=== PATIENT | male | born 1935 | race Caucasian/White ===

== ENCOUNTER 2020-09-08 07:44 | Outpatient (REF) | payer MEDICARE, OTHER, SELFPAY ==
[2020-09-08 08:53] LABS: MANUAL DIFF FLAG NO
[2020-09-08 09:02] LABS: Basophils Absolute Auto 0.1 X10*3/uL (0.0-0.2); Basophils Percent Auto 1.1 % (0-2); Eosinophils Absolute Auto 0.2 X10*3/uL (0.0-0.4); Eosinophils Percent Auto 3.7 % (0-4); Hematocrit 35.9 % (42-52); Hemoglobin 11.8 g/dl (14.0-18.0); Imm Gran Abs Auto 0.01 X10*3/uL (0.00-0.03); Imm Gran Pct Auto 0.2 % (0.0-0.4); Lymphocytes Absolute Auto 1.8 X10*3/uL (1.2-4.9); Lymphocytes Percent Auto 33.4 % (20-40); Mean Corpuscular HGB Conc 32.9 g/dl (31.0-36.0); Mean Corpuscular Hemoglobin 30.6 pg (27.0-33.0); Monocytes Percent Auto 17.6 % (2-11); NRBC Pct Auto 0.4 /100WBC (0.0-0.2); Neutrophils Absolute Auto 2.4 X10*3/uL (2.0-8.3); Platelet Count 205 X10*3/uL (160-400); Red Blood Count 3.86 X10*6/uL (4.60-5.80); Red Cell Distribution Width 16.8 % (11.0-16.0); White Blood Count 5.5 X10*3/uL (4.8-10.8)
[2020-09-08 09:23] LABS: Alanine Aminotransferase 15 U/L (0-40); Anion Gap 11 (12-20); Blood Urea Nitrogen 22 mg/dL (9-16); Carbon Dioxide 29 mmol/L (22-29); Chloride 103 mmol/L (96-108); Cholesterol 141 mg/dL; Estimated Glomerular Filt Rate > 60; HDL Cholesterol 55 mg/dL; LDL Cholesterol Calculated 68 mg/dl; Potassium 4.1 mmol/l (3.3-5.1); Sodium 139 mmol/L (135-145); Triglycerides 94 mg/dL
== END 2020-09-08 07:45 | disposition home or self-care (01) ==
LOC: HO.LAB 07:44
PROVIDERS: PCP Family Medicine; Visit Provider Family Medicine
DX: I10 Essential (primary) hypertension (principal); E78.00 Pure hypercholesterolemia, unspecified; D64.9 Anemia, unspecified; Z79.899 Other long term (current) drug therapy
CPT/HCPCS: 36415; 80051; 80061; 82550; 82565; 84460; 84520; 85025

== ENCOUNTER 2020-09-27 12:38 | Outpatient (REF) | payer MEDICARE, OTHER, SELFPAY ==
--- NOTE | 2020-09-27 12:53 | XR_ITS ---
EXAMINATION: XR HIP, LEFT CLINICAL INFORMATION: Left hip pain. Mass. COMPARISON: None TECHNIQUE: Two views of the left hip. FINDINGS: Bones and soft tissues are normal. No fracture. Alignment is anatomic. Hip joint space is maintained. XR/XR hip LT min 2V IMPRESSION: Unremarkable left hip exam.
== END 2020-09-27 12:39 | disposition home or self-care (01) ==
LOC: HO.XRAY 12:38
PROVIDERS: PCP Family Medicine; Visit Provider Family Medicine
DX: M25.552 Pain in left hip (principal); R22.42 Localized swelling, mass and lump, left lower limb
CPT/HCPCS: 73502

== ENCOUNTER 2020-12-04 11:59 | Outpatient (REF) | payer MEDICARE, OTHER, SELFPAY ==
[2020-12-04 12:35] LABS: COVID-19 Test Negative (Negative)
== END 2020-12-04 12:00 | disposition home or self-care (01) ==
LOC: HO.LAB 11:59
PROVIDERS: Visit Provider Internal Medicine
DX: Z20.828 Contact with and (suspected) exposure to other viral communicable diseases (principal)
CPT/HCPCS: 36415; 87635; C9803

== ENCOUNTER 2021-02-26 07:48 | Outpatient (REF) | payer MEDICARE, OTHER, SELFPAY ==
--- NOTE | 2021-02-27 08:55 | MHC.AU.P13 ---
Adult Audiological Evaluation Date of Visit: 02/26/21 Senior Examiner Used: Not Applicable Reason for Appointment: Audiologic evaluation due to gradual change in hearing ability and tinnitus Does patient feel they have a hearing loss?: Yes If Yes, Which Ear?: Right Ear When Was Hearing Difficulty First Noticed?: fall Has hearing been tested previously?: No Hearing Handicap Inventory: HHIE SCORE: 8 Based on HHIE score, patient has: No perceived hearing handicap Ear History: Ear Infections in Childhood: Outer ear infections from swimming and water remaining in ears Bothersome Tinnitus/Ringing/Noises in Ears: Both Ears Ear used on the phone: Left Ear History of occupational noise exposure?: No: History of recreational shooting and uses H[employer] History: Branch: [employer] Medical History: Medical History: Blood Disorders, Skin Cancer, Heart Problems, High Blood Pressure, Mumps, Scarlet Fever History of skin cancer treated with removal of lesions, 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 Left Ear Results: Not performed at today's visit. Hearing Evaluation: Transducer(s) Used: Insert Earphones Bone Conduction Method: Conventional Audiometry Stimuli Used: Pure Tones Right Ear: Description of Hearing: Mild to moderate sensorineural hearing loss. Left Ear: Description of Hearing: Mild to moderately-severe sensorineural hearing loss with notched configuration at 3000 and 4000 Hz. Speech Recognition Threshold (SRT): Method Used: Monitored Live Voice Stimuli Used: Spondee Words Right Ear: 35 dB HL Left Ear: 40 dB HL Word Discrimination: Method: Recorded Lists Word Lists Used: NU-6 Right Ear: 92% at 75 dB HL Left Ear: 96% at 85 dB HL Most Comfortable Level (MCL): Right Ear: 75 dB HL Left Ear: 85 dB HL QuickSIN: Unaided Binaural Quick SIN Test: 6 dB SNR Loss suggesting Keegan experiences a mild degree of difficulty understanding speech with increasing levels of background noise in this controlled test environment. Recommendations: Audiological re-evaluation in one year. Hearing protection should be used when around loud noise. - The notched configuration of the hearing loss in the left ear may relate to noise exposure. However, given the asymmetry of the hearing loss, medical consultation with an Machine I Engraver is advised. - Discussed with Keegan he is potentially a candidate for hearing aids if the hearing loss is interfering with communication ability. If interested in pursuing amplification from this office he may schedule a Hearing Aid Evaluation appointment. Diagnosis: Primary Diagnosis: H90.3 Bilateral Sensorineural Hearing Loss Secondary Diagnosis: H93.13 Tinnitus, Bilateral Services Performed: Comprehensive Audiological Evaluation (CPT 17077) Tympanometry (CPT 16522) Signature: Provider: Juancarlos Mahoney, CCC-A
== END 2021-02-26 07:49 | disposition home or self-care (01) ==
LOC: HO.SH 07:48
PROVIDERS: Visit Provider Family Medicine
DX: H91.93 Unspecified hearing loss, bilateral (principal)
CPT/HCPCS: 92557; 92567

== ENCOUNTER 2021-04-09 12:09 | Outpatient (REF) | payer MEDICARE, OTHER, SELFPAY ==
[2021-04-09 13:54] LABS: Alanine Aminotransferase 21 U/L (0-40); Anion Gap 13 (12-20); Aspartate Amino Transferase 32 U/L (5-37); Blood Urea Nitrogen 17 mg/dL (9-16); Carbon Dioxide 28 mmol/L (22-29); Chloride 102 mmol/L (96-108); Estimated Glomerular Filt Rate > 60; Potassium 4.1 mmol/L (3.3-5.1); Sodium 139 mmol/L (135-145)
== END 2021-04-09 12:10 | disposition home or self-care (01) ==
LOC: HO.LAB 12:09
PROVIDERS: PCP Family Medicine; Visit Provider Family Medicine
DX: I10 Essential (primary) hypertension (principal); E78.00 Pure hypercholesterolemia, unspecified; Z79.899 Other long term (current) drug therapy
CPT/HCPCS: 36415; 80051; 82550; 82565; 84450; 84460; 84520

== ENCOUNTER 2021-04-17 15:47 | Observation (INO) | payer MEDICARE, OTHER, SELFPAY ==
[2021-04-17] VITALS (7 sets, daily range): BP systolic 97–152; BP diastolic 59–70; PULSE 64–75; RESP 16–19; TEMP 36.4–36.9; O2SAT 95–99; BMI 28.2
--- NOTE | ~2021-04-17 | XR_ITS ---
EXAMINATION: PORTABLE CHEST 1 VIEW CLINICAL INFORMATION: Cellulitis . COMPARISON: 04/19/2020. TECHNIQUE: Portable frontal view of the chest was obtained. FINDINGS: The lungs are well expanded. Mild central vascular prominence remains. No focal infiltrate, effusion, overt edema, or pneumothorax. Cardiac and mediastinal silhouettes are within normal limits for size. Patient status post sternotomy. No acute bony abnormality seen. XR/XR chest 1V IMPRESSION: Chronic appearing changes similar to the 04/19/2020 study
[2021-04-17 17:02] LABS: MANUAL DIFF FLAG NO
[2021-04-17 17:06] LABS: Basophils Percent Auto 0.8 % (0-2); Eosinophils Absolute Auto 0.2 X10*3/uL (0.0-0.4); Eosinophils Percent Auto 4.3 % (0-4); Hematocrit 35.1 % (42-52); Hemoglobin 11.8 g/dl (14.0-18.0); Imm Gran Abs Auto 0.01 X10*3/uL (0.00-0.03); Imm Gran Pct Auto 0.2 % (0.0-0.4); Lymphocytes Absolute Auto 1.7 X10*3/uL (1.2-4.9); Lymphocytes Percent Auto 31.1 % (20-40); Mean Corpuscular HGB Conc 33.6 g/dl (31.0-36.0); Mean Corpuscular Hemoglobin 31.2 pg (27.0-33.0); Mean Corpuscular Volume 92.9 fL (80-98); Mean Platelet Volume 11.7 fL (9.4-12.4); Monocytes Absolute Auto 1.1 X10*3/uL (0.1-1.2); Neutrophils Absolute Auto 2.3 X10*3/uL (2.0-8.3); Neutrophils Percent Auto 43.6 % (45-73); Platelet Count 184 X10*3/uL (160-400); Red Blood Count 3.78 X10*6/uL (4.60-5.80); Red Cell Distribution Width 17.7 % (11.0-16.0); White Blood Count 5.3 X10*3/uL (4.8-10.8)
--- NOTE | 2021-04-17 17:11 | ED.GENADULT ---
HPI - General Adult General Chief complaint: Recheck/Abnormal Lab/Rx Stated complaint: abnormal labs Time Seen by Provider: 04/17/21 17:01 Source: patient Mode of arrival: ambulatory Limitations: no limitations History of Present Illness HPI narrative: This is a 85-year-old male came in for evaluation of possible left arm cellulitis and hypotension at the PCP office. Patient with history of atrial fibrillation/mechanical aortic valve patient on Coumadin, 2 weeks ago patient hurt his left arm causing superficial skin tear, seen by his PCP/[facility] patient was started on antibiotic (Keflex and Bactrim) started 4 days ago patient still finishing the course of antibiotic, went today for rechecking of his left arm wound which subjectively was reported as improved (the swelling and the redness) by the patient, patient found at the PCP office hypotensive and patient was complaining of generalized weakness. Patient was instructed to come to the emergency room for further evaluation. Related Data Home Medications Medication Instructions Recorded Confirmed acebutolol 200 mg PO DAILY 04/17/21 04/17/21 doxazosin 1 tab PO DAILY 04/17/21 04/17/21 finasteride 1 tab PO DAILY 04/17/21 04/17/21 furosemide 1 tab PO QAM 04/17/21 04/17/21 lisinopril 20 mg PO DAILY 04/17/21 04/17/21 lorazepam 1 tab PO TID PRN 04/17/21 04/17/21 rosuvastatin 1 tab PO DAILY 04/17/21 04/17/21 sulfamethoxazole-trimethoprim 1 tab PO BID 04/17/21 04/17/21 warfarin 1 tab PO DAILY 04/17/21 04/17/21 warfarin 1 tab PO DAILY 04/17/21 04/17/21 Allergies Allergy/AdvReac Type Severity Reaction Status Date / Time adhesive [ADHESIVE] Allergy Intermediate RASH, Verified 04/17/21 20:06 BLISTERS atenolol [Atenolol] Allergy Mild RASH Verified 04/17/21 20:06 sotalol [Sotalol] Allergy Mild RASH Verified 04/17/21 20:06 atorvastatin [From Lipitor] AdvReac Mild SEVERE Verified 04/17/21 20:06 ACHES AND PAINS Review of Systems Review of Systems: All other systems are reviewed and are negative Constitutional: Reports as per HPI and Reports no additional constitutional complaints Eyes: Reports as per HPI and Reports no additional eye complaints Reports system reviewed and no additional complaints, except as documented Cardiovascular: Reports as per HPI and Reports no additional cardiovascular complaints Respiratory: Reports as per HPI and Reports no additional respiratory complaints Gastrointestinal: Reports as per HPI and Reports no additional gastrointestinal complaints Genitourinary: Reports no additional female genitourinary complaints Musculoskeletal: Reports no additional musculoskeletal complaints Skin/Breast: Reports system reviewed and no additional complaints, except as docu Psychiatric: Reports no additional psychiatric complaints Endocrine: Reports no additional endocrine complaints Hematologic/Lymphatic: Reports no additional hematologic/lymphatic complaints Allergic/Immunologic: Reports no additional allergic/immunologic complaints Reports system reviewed and no additional complaints, except as documented and Reports Abnormal speech present FOR[facility]LY [facility], [facility] Past Medical History Medical History HTN (hypertension) Surgical History Aortic valve replaced History of cholecystectomy Social History Social History Alcohol intake: current Alcohol intake frequency: 0-2 drinks per day Smoking Status: Former smoker Smoked in Last 30 Days: No Use of substances other than those prescribed or required for medical reasons: No Advance Directives: No Advance Directives Information Provided: Yes Physical Exam Vital Signs: Vital Signs: Last Vital Signs Temp 98.0 F 04/17/21 20:17 Pulse 67 04/17/21 20:17 Resp 16 04/17/21 20:17 BP 139/60 04/17/21 20:17 Pulse Ox 98 04/17/21 20:17 Body Mass Index 28.2 Vital signs have been reviewed as appeared to be correct. Blood pressure normal. Heart rate normal. Respiration rate normal. Temperature normal. Oxygen saturation normal. Appearance: Alert. Oriented X3. No acute distress. Head: Normal external exam. Normocephalic. Atraumatic. No Rodrigues signs noted. No raccoon eyes noted Eyes: PERRLA. EOMI. Conjunctiva and sclera normal. Eyelids normal. ENT: TM's Normal. Pharynx normal. Uvula midline. Dry mucous membranes. No trismus noted. No drooling noted. No muffled voice noted. Neck: Normal inspection. Neck supple. FROM. No adenopathy. Thyroid Normal. No meningeal signs. No neck mass noted. CVS: Normal heart rate and rhythm. Mechanical valve click is intact. No murmurs noted. Pulses normal throughout. Respiratory: No respiratory distress. Painless inspiration. Breath sounds normal. No wheezes/rales/rhonchi noted. Chest nontender. No accessory muscle usage noted or decreased air movement noted. Abdomen: Soft and nontender. Bowel sounds normal in all 4 quadrants. No distention noted. No organomegaly noted. No visible injury noted. Back: No CVA tenderness. Full range of motion noted. Skin: Skin warm and dry. Normal skin color. Normal skin turgor. No rashes/lesions/lacerations noted. Extremities: Mild left arm cellulitis, no swelling. Neuro: Oriented X 3. No motor deficit. No sensory deficit. Reflexes normal. Course Course Course Narrative: Assessment and plan. 85-year-old male who has been treated for left arm cellulitis after skin tear, patient was received Bactrim which appears to be improving his cellulitis issue, patient has been feeling generalized weakness seen by his PCP today found to be hypotensive in the office, was sent to the ED for further evaluation. Labs/physical exam are more consistent with dehydration. Blood pressure has been normalizing with IV fluids. No evidence of infection causing the hypotension. Will admit the patient for IV hydration and repeat labs after hydration. Medical Decision Making Lab Data Lab results reviewed: Yes I reviewed the patient's lab results. Result diagrams: 04/17/21 16:37 04/17/21 18:07 Labs: Lab Results 04/17/21 04/17/21 04/17/21 Range/Units 16:36 16:36 16:37 WBC 5.3 (4.8-10.8) X10*3/uL RBC 3.78 L (4.60-5.80) X10*6/uL Hgb 11.8 L (14.0-18.0) g/dl Hct 35.1 L (42-52) % MCV 92.9 (80-98) fL MCH 31.2 (27.0-33.0) pg MCHC 33.6 (31.0-36.0) g/dl RDW 17.7 H (11.0-16.0) % Plt Count 184 (160-400) X10*3/uL MPV 11.7 (9.4-12.4) fL Immature Gran % (Auto) 0.2 (0.0-0.4) % Neut % (Auto) 43.6 L (45-73) % Lymph % (Auto) 31.1 (20-40) % [place] % (Auto) 20.0 H (2-11) % Eos % (Auto) 4.3 H (0-4) % Baso % (Auto) 0.8 (0-2) % Lymph # (Auto) 1.7 (1.2-4.9) X10*3/uL [place] # (Auto) 1.1 (0.1-1.2) X10*3/uL Eos # (Auto) 0.2 (0.0-0.4) X10*3/uL Baso # (Auto) 0.0 (0.0-0.2) X10*3/uL Abs Immat Gran (auto) 0.01 (0.00-0.03) X10*3/uL Absolute Neuts (auto) 2.3 (2.0-8.3) X10*3/uL Absolute Nucleated RBC 0.000 (0.0-0.012) X10*3/uL Nucleated RBC % (auto) 0.0 (0.0-0.2) /100WBC PT (10.8-13.0) SEC INR (0.9-1.1) APTT (24.1-38.0) SEC Hold Blue Top Sodium (135-145) mmol/L Potassium (3.3-5.1) mmol/L Chloride (96-108) mmol/L Carbon Dioxide (22-29) mmol/L Anion Gap (12-20) BUN (9-16) mg/dL Creatinine (0.5-1.4) mg/dL Estim Creat Clear Calc Estimated GFR Random Glucose (60-115) mg/dL Lactic Acid 1.1 (0.5-2.0) mmol/L Calcium (8.4-10.2) mg/dL Total Bilirubin (0.0-1.0) mg/dL Direct Bilirubin (0.0-0.5) mg/dL AST (5-37) U/L ALT (0-40) U/L Alkaline Phosphatase (39-117) U/L Troponin I High Sens (<3.5-35.0) ng/L Total Protein (6.5-8.0) g/dL Albumin (3.5-5.0) g/dL Urine Color Urine Appearance Urine pH (5.0-8.0) Ur Specific [place] (1.005-1.025) Urine Protein (NEG-TRACE) MG/DL Urine Glucose (UA) (NEG) MG/DL Urine Ketones (NEG) MG/DL Urine Blood (NEG) Urine Nitrite (NEG) Ur Leukocyte Esterase (NEG) Urine RBC (0) /HPF Urine WBC (0-4) /HPF Ur Squamous Epith Cells /LPF Urine Bacteria /LPF Granular Casts /LPF COVID-19 ([facility]) Negative (Negative) COVID-19 Clin Com See Note 04/17/21 04/17/21 04/17/21 Range/Units 16:37 16:37 18:07 WBC (4.8-10.8) X10*3/uL RBC (4.60-5.80) X10*6/uL Hgb (14.0-18.0) g/dl Hct (42-52) % MCV (80-98) fL MCH (27.0-33.0) pg MCHC (31.0-36.0) g/dl RDW (11.0-16.0) % Plt Count (160-400) X10*3/uL MPV (9.4-12.4) fL Immature Gran % (Auto) (0.0-0.4) % Neut % (Auto) (45-73) % Lymph % (Auto) (20-40) % [place] % (Auto) (2-11) % Eos % (Auto) (0-4) % Baso % (Auto) (0-2) % Lymph # (Auto) (1.2-4.9) X10*3/uL [place] # (Auto) (0.1-1.2) X10*3/uL Eos # (Auto) (0.0-0.4) X10*3/uL Baso # (Auto) (0.0-0.2) X10*3/uL Abs Immat Gran (auto) (0.00-0.03) X10*3/uL Absolute Neuts (auto) (2.0-8.3) X10*3/uL Absolute Nucleated RBC (0.0-0.012) X10*3/uL Nucleated RBC % (auto) (0.0-0.2) /100WBC PT 29.4 H (10.8-13.0) SEC INR 2.5 H (0.9-1.1) APTT 38.1 H (24.1-38.0) SEC Hold Blue Top SEE NOTE Sodium 137 137 (135-145) mmol/L Potassium 4.1 3.9 (3.3-5.1) mmol/L Chloride 102 103 (96-108) mmol/L Carbon Dioxide 25 27 (22-29) mmol/L Anion Gap 14 11 L (12-20) BUN 20 H 19 H (9-16) mg/dL Creatinine 1.46 H 1.38 (0.5-1.4) mg/dL Estim Creat Clear Calc 51.8 54.8 Estimated GFR 46 49 Random Glucose 98 93 (60-115) mg/dL Lactic Acid (0.5-2.0) mmol/L Calcium 9.0 8.5 (8.4-10.2) mg/dL Total Bilirubin 1.0 0.9 (0.0-1.0) mg/dL Direct Bilirubin 0.4 (0.0-0.5) mg/dL AST 38 H 35 (5-37) U/L ALT 25 22 (0-40) U/L Alkaline Phosphatase 65 60 (39-117) U/L Troponin I High Sens (<3.5-35.0) ng/L Total Protein 6.9 6.2 L (6.5-8.0) g/dL Albumin 4.3 3.9 (3.5-5.0) g/dL Urine Color Urine Appearance Urine pH (5.0-8.0) Ur Specific [place] (1.005-1.025) Urine Protein (NEG-TRACE) MG/DL Urine Glucose (UA) (NEG) MG/DL Urine Ketones (NEG) MG/DL Urine Blood (NEG) Urine Nitrite (NEG) Ur Leukocyte Esterase (NEG) Urine RBC (0) /HPF Urine WBC (0-4) /HPF Ur Squamous Epith Cells /LPF Urine Bacteria /LPF Granular Casts /LPF COVID-19 ([facility]) (Negative) COVID-19 Clin Com 04/17/21 04/17/21 04/17/21 Range/Units 18:07 18:07 20:23 WBC (4.8-10.8) X10*3/uL RBC (4.60-5.80) X10*6/uL Hgb (14.0-18.0) g/dl Hct (42-52) % MCV (80-98) fL MCH (27.0-33.0) pg MCHC (31.0-36.0) g/dl RDW (11.0-16.0) % Plt Count (160-400) X10*3/uL MPV (9.4-12.4) fL Immature Gran % (Auto) (0.0-0.4) % Neut % (Auto) (45-73) % Lymph % (Auto) (20-40) % [place] % (Auto) (2-11) % Eos % (Auto) (0-4) % Baso % (Auto) (0-2) % Lymph # (Auto) (1.2-4.9) X10*3/uL [place] # (Auto) (0.1-1.2) X10*3/uL Eos # (Auto) (0.0-0.4) X10*3/uL Baso # (Auto) (0.0-0.2) X10*3/uL Abs Immat Gran (auto) (0.00-0.03) X10*3/uL Absolute Neuts (auto) (2.0-8.3) X10*3/uL Absolute Nucleated RBC (0.0-0.012) X10*3/uL Nucleated RBC % (auto) (0.0-0.2) /100WBC PT (10.8-13.0) SEC INR (0.9-1.1) APTT (24.1-38.0) SEC Hold Blue Top Sodium (135-145) mmol/L Potassium (3.3-5.1) mmol/L Chloride (96-108) mmol/L Carbon Dioxide (22-29) mmol/L Anion Gap (12-20) BUN (9-16) mg/dL Creatinine (0.5-1.4) mg/dL Estim Creat Clear Calc Estimated GFR Random Glucose (60-115) mg/dL Lactic Acid 0.8 (0.5-2.0) mmol/L Calcium (8.4-10.2) mg/dL Total Bilirubin (0.0-1.0) mg/dL Direct Bilirubin (0.0-0.5) mg/dL AST (5-37) U/L ALT (0-40) U/L Alkaline Phosphatase (39-117) U/L Troponin I High Sens 20.3 (<3.5-35.0) ng/L Total Protein (6.5-8.0) g/dL Albumin (3.5-5.0) g/dL Urine Color YELLOW Urine Appearance HAZY Urine pH 6.0 (5.0-8.0) Ur Specific [place] 1.025 (1.005-1.025) Urine Protein 1+ H (NEG-TRACE) MG/DL Urine Glucose (UA) NEG (NEG) MG/DL Urine Ketones NEG (NEG) MG/DL Urine Blood 2+ H (NEG) Urine Nitrite NEG (NEG) Ur Leukocyte Esterase NEG (NEG) Urine RBC 10-14 H (0) /HPF Urine WBC 0-2 (0-4) /HPF Ur Squamous Epith Cells 2+ /LPF Urine Bacteria NONE /LPF Granular Casts 10-14 /LPF COVID-19 ([facility]) (Negative) COVID-19 Clin Com Imaging Data Chest x-ray: Radiologist's impression: Chronic appearing changes similar to the 04/19/2020 study ECG Data Interpretation: Atrial fibrillation at 73 beats per minutes, prolonged QRS, incomplete right bundle-branch block. Discharge Plan Discharge Clinical Impression: Acute dehydration Hypotension Qualifiers: Hypotension type: unspecified hypotension type Qualified Code(s): I95.9 - Hypotension, unspecified Patient Disposition: Admitted As Inpatient
[2021-04-17] MEDS: 0.9 % Sodium Chloride 1,000 ML 999 ML IVCONT ×2 (17:21→18:16)
[2021-04-17 17:43] LABS: COVID-19 Test Negative (Negative)
[2021-04-17 17:52] LABS: INTERNATIONAL NORM RATIO 2.5 (0.9-1.1); Prothrombin Time 29.4 SEC (10.8-13.0)
[2021-04-17 17:54] LABS: Lactic Acid 1.1 mmol/L (0.5-2.0)
[2021-04-17 17:57] LABS: Alanine Aminotransferase 25 U/L (0-40); Albumin Level 4.3 g/dL (3.5-5.0); Alkaline Phosphatase 65 U/L (39-117); Anion Gap 14 (12-20); Aspartate Amino Transferase 38 U/L (5-37); Blood Urea Nitrogen 20 mg/dL (9-16); Carbon Dioxide 25 mmol/L (22-29); Chloride 102 mmol/L (96-108); Creatinine Clr Calc Pharmacy 51.8; Estimated Glomerular Filt Rate 46; Glucose Random 98 mg/dL (60-115); Partial Thromboplastin Time 38.1 SEC (24.1-38.0); Potassium 4.1 mmol/L (3.3-5.1); Sodium 137 mmol/L (135-145); Total Protein 6.9 g/dL (6.5-8.0)
[2021-04-17 18:38] LABS: Glucose Urine UA NEG (NEG); Leukocyte Esterase Urine NEG (NEG); Nitrite Urine NEG (NEG); Specific Gravity - Urine 1.025 (1.005-1.025); Urine Blood 2+ (NEG); Urine Ketones NEG (NEG); Urine Protein 1+ MG/DL (NEG-TRACE)
[2021-04-17 18:39] LABS: Appearance Urine HAZY; Color Urine YELLOW
[2021-04-17 18:41] LABS: Lactic Acid 0.8 mmol/L (0.5-2.0)
[2021-04-17 18:51] LABS: Alanine Aminotransferase 22 U/L (0-40); Albumin Level 3.9 g/dL (3.5-5.0); Alkaline Phosphatase 60 U/L (39-117); Anion Gap 11 (12-20); Aspartate Amino Transferase 35 U/L (5-37); Bilirubin Direct 0.4 mg/dL (0.0-0.5); Bilirubin Total 0.9 mg/dL (0.0-1.0); Blood Urea Nitrogen 19 mg/dL (9-16); Carbon Dioxide 27 mmol/L (22-29); Chloride 103 mmol/L (96-108); Creatinine Clr Calc Pharmacy 54.8; Estimated Glomerular Filt Rate 49; Glucose Random 93 mg/dL (60-115); Potassium 3.9 mmol/L (3.3-5.1); Sodium 137 mmol/L (135-145); Total Protein 6.2 g/dL (6.5-8.0)
[2021-04-17 18:54] LABS: Calcium 8.5 mg/dL (8.4-10.2)
[2021-04-17 18:55] LABS: Squamous Epithelial Cell Urine 2+ /LPF; WBC Urine 0-2 /HPF (0-4)
--- NOTE | 2021-04-17 19:51 | ECG_ITS ---
Test Reason : RECHECK Blood Pressure : / mmHG Vent. Rate : 073 BPM Atrial Rate : 071 BPM P-R Int : 000 ms QRS Dur : 118 ms QT Int : 410 ms P-R-T Axes : 000 -30 081 degrees QTc Int : 451 ms Atrial fibrillation Left axis deviation Incomplete right bundle branch block Nonspecific ST and T wave abnormality Abnormal ECG When compared with ECG of 19-APR-2020 22:08, Nonspecific T wave abnormality no longer evident in Inferior leads Referred By: Darlene Rendon Electronically Signed By:MARITO BRANHAM MD
--- NOTE | 2021-04-17 20:03 | PC.NURSE ---
Pt aaox4, resting on stretcher in NAD, breathing with ease on RA. Pt VSS. Pt denies dizziness, lightheadedness, CP, SOB, abd pain, n/v/d, urinary sx. Pt states I feel reasonably normal. Pt NSR on environmental monitoring specialist, VSS. Stretcher is in lowest locked position, rails raised, call arrington within reach.
[2021-04-17 21:07] LABS: Troponin-I High Sensitivity 20.3 ng/L (<3.5-35.0)
[2021-04-17] MEDS: Lactated Ringers 1,000 ML 100 ML IVCONT (22:30)
[2021-04-17] MEDS: 0.9 % Sodium Chloride Flush 3 ML SYRINGE IVFLUSH (22:54)
[2021-04-17] MEDS: Finasteride 5 MG TABLET PO (22:54)
[2021-04-17] MEDS: Warfarin Sodium 5 MG TABLET PO (22:54)
--- NOTE | 2021-04-17 22:57 | PM.IMHP ---
History of Present Illness Date of Service: 04/17/21 Chief Complaint: hypotension This is an 85-year-old male with past medical history of AFib, hypertension, aortic mechanical valve, presents the hospital with complaints of hypotension. About 2 weeks ago patient injured his left arm, subsequently developed pain cellulitis, was seen by arc air operator on Friday and was started on Bactrim. He reports that he noticed improvement in his left arm swelling, pain, and redness but he was not feeling well over the last few days, stating that he was feeling off, weak, and therefore presented to his PCP. At his PCPs office blood pressure was found to be low and therefore he was sent to the hospital. Patient herself denies any headache, change in vision, no chest pain, no palpitations, no abdominal pain nausea or vomiting, no diarrhea constipation, no urinary symptoms and no lower extremity edema. He reports that he may not have been drinking and eating enough. To the ED patient had a temp of 97? point nine, heart rate of 73, respiratory rate of 18, blood pressure 97/59, satting 96% on room air. Patient received improving to 150s over 70s. WBC count of 5.3, hemoglobin of 11.8, PT of 29.4, INR of 2.5, BUN of 20, creatinine of 1.46 with baseline around 1, UA positive for blood and RBC, no urinary infection. labs otherwise unremarkable. COVID-19 negative. Chest x-ray shows chronic appearing changes with no acute disease. Past medical history as below on confirmed with patient Review of Systems Review of Systems: Yes all other systems are reviewed and are negative [facility] Medical History (Updated 04/18/21 @ 06:03 by Zaki Nixon MD) Atrial fibrillation HTN (hypertension) Surgical History Aortic valve replaced History of cholecystectomy Social History Alcohol intake: current Alcohol intake frequency: 0-2 drinks per day Smoking Status: Former smoker Tobacco Type: Cigarette Smoked in Last 30 Days: No Use of substances other than those prescribed or required for medical reasons: No Advance Directives: No Advance Directives Information Provided: Yes Meds Allergies Allergy/AdvReac Type Severity Reaction Status Date / Time adhesive [ADHESIVE] Allergy Intermediate RASH, Verified 04/17/21 20:06 BLISTERS atenolol [Atenolol] Allergy Mild RASH Verified 04/17/21 20:06 sotalol [Sotalol] Allergy Mild RASH Verified 04/17/21 20:06 atorvastatin [From Lipitor] AdvReac Mild SEVERE Verified 04/17/21 20:06 ACHES AND PAINS Active Medications: Current Medications Generic Name Dose Route Start Last Admin Trade Name Freq PRN Reason Stop Dose Admin Acetaminophen 650 mg 04/17/21 21:50 Acetaminophen 325 Mg Tablet PO Q6H PRN Pain, Mild (Pain Scale 1-3) Atorvastatin Calcium 80 mg 04/18/21 09:00 Atorvastatin Calcium 80 Mg Tablet PO DAILY CHINO Docusate Sodium 100 mg 04/17/21 21:50 Docusate Sodium 100 Mg Capsule PO DAILY PRN Constipation Doxazosin Mesylate 4 mg 04/18/21 09:00 Doxazosin Mesylate 2 Mg Tablet PO DAILY [facility] Protocol Finasteride 5 mg 04/17/21 22:15 04/17/21 22:54 Finasteride 5 Mg Tablet PO 5 mg BEDTIME CHINO Administration Lactated Ringer's 1,000 mls @ 100 mls/hr 04/17/21 21:50 04/17/21 22:30 Lr IVCONT 100 mls/hr .Q10H CHINO Administration Lorazepam 0.5 mg 04/17/21 21:50 Lorazepam 0.5 Mg Tablet PO TID PRN Anxiety Non-Formulary Medication 400 mg 04/18/21 09:00 Acebutolol PO DAILY CHINO Ondansetron HCl 4 mg 04/17/21 21:50 Ondansetron Hcl 4 Mg/2 Ml Vial IVPUSH Q8H PRN Nausea and Vomiting Pharmacy Consult 1 each 04/17/21 19:50 Consult Rx Perform Med Rec MISCELLANE ONCE PRN Consult order Sodium Chloride 3 ml 04/18/21 00:00 04/17/21 22:54 0.9 % Sodium Chloride Flush 3 Ml Syringe IVFLUSH 3 ml QSHIFT CHINO Administration Trimethoprim/Sulfamethoxazole 1 tab 04/17/21 21:50 04/17/21 22:54 Sulfamethox/Trimeth 800/160 1 Tab Tablet PO 1 tab BID CHINO Administration Warfarin Sodium 5 mg 04/17/21 23:00 04/17/21 22:54 Warfarin Sodium 5 Mg Tablet PO 5 mg DAILY@1800 [facility] Administration Home Medications Medication Instructions Recorded Confirmed Last Taken Type acebutolol 200 mg PO BEDTIME 04/17/21 04/17/21 04/16/21 History acebutolol 400 mg PO DAILY 04/17/21 04/17/21 Unknown History doxazosin 1 tab PO DAILY 04/17/21 04/17/21 Unknown History finasteride 1 tab PO BEDTIME 04/17/21 04/17/21 Unknown History furosemide 1 tab PO QAM 04/17/21 04/17/21 Unknown History lisinopril 20 mg PO DAILY 04/17/21 04/17/21 Unknown History lorazepam 1 tab PO TID PRN 04/17/21 04/17/21 Unknown History rosuvastatin 1 tab PO DAILY 04/17/21 04/17/21 Unknown History sulfamethoxazole-trimethoprim 1 tab PO BID 04/17/21 04/17/21 Unknown History warfarin 5 mg PO DAILY@1800 04/17/21 04/17/21 04/16/21 History Physical Exam Vital Signs and Narrative: Vital Signs: Last Vital Signs Temp 97.6 F 04/17/21 22:18 Pulse 64 04/17/21 22:18 Resp 19 04/17/21 22:18 BP 145/66 H 04/17/21 22:18 Pulse Ox 95 04/17/21 22:18 Body Mass Index 28.2 Const: General: cooperative and no acute distress Orientation/consciousness: patient oriented x3 Eyes: General: appearance normal, both eyes and all related structures Resp: Effort & Inspection: normal respiratory effort and able to speak in complete sentences Cardio: Rate: regular rate Rhythm: regular rhythm Heart sounds: Clicking heart sound present GI: Palpation (GI): Soft to palpation Auscultation: normal bowel sounds Skin: General skin exam: no rashes or lesions noted Neuro: General: patient oriented x3 Cognition (Neuro): normal cognition Extrem: General: Yes normal to inspection and Yes no pedal edema Results Labs CBC and Chem 7: 04/17/21 16:37 04/17/21 18:07 Labs: Laboratory Results - last 24 hr 04/17/21 04/17/21 04/17/21 16:36 16:36 16:37 MCV 92.9 MCH 31.2 MCHC 33.6 RDW 17.7 H Plt Count 184 MPV 11.7 Immature Gran % (Auto) 0.2 Neut % (Auto) 43.6 L Lymph % (Auto) 31.1 Dodge % (Auto) 20.0 H Eos % (Auto) 4.3 H Baso % (Auto) 0.8 Lymph # (Auto) 1.7 Dodge # (Auto) 1.1 Eos # (Auto) 0.2 Baso # (Auto) 0.0 Abs Immat Gran (auto) 0.01 Absolute Neuts (auto) 2.3 Absolute Nucleated RBC 0.000 Nucleated RBC % (auto) 0.0 PT INR APTT Hold Blue Top Anion Gap Estim Creat Clear Calc Estimated GFR Random Glucose Lactic Acid 1.1 Calcium Total Bilirubin Direct Bilirubin AST ALT Alkaline Phosphatase Troponin I High Sens Total Protein Albumin Urine Color Urine Appearance Urine pH Ur Specific [place] Urine Protein Urine Glucose (UA) Urine Ketones Urine Blood Urine Nitrite Ur Leukocyte Esterase Urine RBC Urine WBC Ur Squamous Epith Cells Urine Bacteria Granular Casts COVID-19 ([facility]) Negative [employer] See Note 04/17/21 04/17/21 04/17/21 16:37 16:37 18:07 MCV MCH MCHC RDW Plt Count MPV Immature Gran % (Auto) Neut % (Auto) Lymph % (Auto) Dodge % (Auto) Eos % (Auto) Baso % (Auto) Lymph # (Auto) Dodge # (Auto) Eos # (Auto) Baso # (Auto) Abs Immat Gran (auto) Absolute Neuts (auto) Absolute Nucleated RBC Nucleated RBC % (auto) PT 29.4 H INR 2.5 H APTT 38.1 H Hold Blue Top SEE NOTE Anion Gap 14 11 L Estim Creat Clear Calc 51.8 54.8 Estimated GFR 46 49 Random Glucose 98 93 Lactic Acid Calcium 9.0 8.5 Total Bilirubin 1.0 0.9 Direct Bilirubin 0.4 AST 38 H 35 ALT 25 22 Alkaline Phosphatase 65 60 Troponin I High Sens Total Protein 6.9 6.2 L Albumin 4.3 3.9 Urine Color Urine Appearance Urine pH Ur Specific [place] Urine Protein Urine Glucose (UA) Urine Ketones Urine Blood Urine Nitrite Ur Leukocyte Esterase Urine RBC Urine WBC Ur Squamous Epith Cells Urine Bacteria Granular Casts COVID-19 ([facility]) COVID-19 Vibrynt Com 04/17/21 04/17/21 04/17/21 18:07 18:07 20:23 MCV MCH MCHC RDW Plt Count MPV Immature Gran % (Auto) Neut % (Auto) Lymph % (Auto) Dodge % (Auto) Eos % (Auto) Baso % (Auto) Lymph # (Auto) Dodge # (Auto) Eos # (Auto) Baso # (Auto) Abs Immat Gran (auto) Absolute Neuts (auto) Absolute Nucleated RBC Nucleated RBC % (auto) PT INR APTT Hold Blue Top Anion Gap Estim Creat Clear Calc Estimated GFR Random Glucose Lactic Acid 0.8 Calcium Total Bilirubin Direct Bilirubin AST ALT Alkaline Phosphatase Troponin I High Sens 20.3 Total Protein Albumin Urine Color YELLOW Urine Appearance HAZY Urine pH 6.0 Ur Specific [place] 1.025 Urine Protein 1+ H Urine Glucose (UA) NEG Urine Ketones NEG Urine Blood 2+ H Urine Nitrite NEG Ur Leukocyte Esterase NEG Urine RBC 10-14 H Urine WBC 0-2 Ur Squamous Epith Cells 2+ Urine Bacteria NONE Granular Casts 10-14 COVID-19 ([facility]) COVID-19 Clin Com Imaging Radiologist's Impressions: Impressions Chest X-Ray 04/17/21 17:02 IMPRESSION: Chronic appearing changes similar to the 04/19/2020 study Assessment and Plan (1) VIRGEN (acute kidney injury): Status: Acute (2) Hypotension: Qualifiers: Hypotension type: unspecified hypotension type Qualified Code(s): I95.9 - Hypotension, unspecified Status: Acute (3) Cellulitis: Status: Acute (4) Acute dehydration: Status: Acute This is an 85-year-old male with past medical history of AFib, mechanical valve replaced presents to the hospital with complaints of weakness and hypotension. # VIRGEN - most secondary to low oral intake - baseline around 1, presented with creatinine of 1.4 - improved slightly with IV fluids - will admit to observation for IV fluids - hold nephrotoxic medications - follow BMP # hypotension - most likely secondary to dehydration - blood pressure significantly improved after IV fluids and is currently actually hypertensive - no source of infection - hold BP medications until VIRGEN resolves # cellulitis - improved on Bactrim - Bactrim is unlikely to be the cause of his VIRGEN - given his normal creatinine clearance and improvement of his cellulitis will continue Bactrim # AFib - continue acebutolol and coumadin DVT prophylaxis: Coumadin
[2021-04-18 04:00] VITALS: BP 140/73; PULSE 66; RESP 18; TEMP 37.1; O2SAT 98
[2021-04-18 06:28] LABS: MANUAL DIFF FLAG NO
[2021-04-18 06:46] LABS: Basophils Absolute Auto 0.1 X10*3/uL (0.0-0.2); Basophils Percent Auto 1.2 % (0-2); Eosinophils Absolute Auto 0.3 X10*3/uL (0.0-0.4); Eosinophils Percent Auto 6.8 % (0-4); Hematocrit 30.6 % (42-52); Lymphocytes Absolute Auto 1.5 X10*3/uL (1.2-4.9); Lymphocytes Percent Auto 34.7 % (20-40); Mean Corpuscular HGB Conc 32.7 g/dl (31.0-36.0); Mean Corpuscular Hemoglobin 30.6 pg (27.0-33.0); Mean Corpuscular Volume 93.6 fL (80-98); Mean Platelet Volume 11.7 fL (9.4-12.4); Monocytes Absolute Auto 0.8 X10*3/uL (0.1-1.2); Neutrophils Absolute Auto 1.6 X10*3/uL (2.0-8.3); Neutrophils Percent Auto 38.3 % (45-73); Platelet Count 145 X10*3/uL (160-400); Red Blood Count 3.27 X10*6/uL (4.60-5.80); Red Cell Distribution Width 17.7 % (11.0-16.0); White Blood Count 4.3 X10*3/uL (4.8-10.8)
[2021-04-18 06:56] LABS: Anion Gap 10 (12-20); Blood Urea Nitrogen 16 mg/dL (9-16); Calcium 8.2 mg/dL (8.4-10.2); Carbon Dioxide 26 mmol/L (22-29); Chloride 106 mmol/L (96-108); Creatinine Clr Calc Pharmacy 66.4; Estimated Glomerular Filt Rate > 60; Glucose Random 119 mg/dL (60-115); Sodium 138 mmol/L (135-145)
[2021-04-18 07:03] LABS: INTERNATIONAL NORM RATIO 2.7 (0.9-1.1); Prothrombin Time 32.8 SEC (10.8-13.0)
[2021-04-18 07:51] VITALS: BP 138/69; PULSE 58; RESP 17; TEMP 36.7; O2SAT 98
--- NOTE | 2021-04-18 08:06 | PC.NURSE ---
patient refusing side rail up. understands policy and risk., refusing side rail down
[2021-04-18] MEDS: Lactated Ringers 1,000 ML 100 ML IVCONT (08:09)
[2021-04-18] MEDS: Doxazosin Mesylate 2 MG TABLET 4 MG PO (08:13)
--- NOTE | 2021-04-18 09:05 | HO.PM.IMPN ---
Subjective Subjective Date of Service: 04/18/21 Interval History: left arm celluitis , virgen Review of Systems Patient has left arm erythema Denies any pain but has some itching Denies any fever or chills or nausea or vomiting or cough or phlegm or shortness of breath or chest pain. Physical Exam Vital Signs: Vital Signs: Last Vital Signs Temp 98.1 F 04/18/21 07:51 Pulse 58 04/18/21 07:51 Resp 17 04/18/21 07:51 BP 138/69 04/18/21 07:51 Pulse Ox 98 04/18/21 07:51 Body Mass Index 28.2 Physical exam: Cvs: [id number], [id number] , no murmur res: clear to auscultation ,no rhonchii or wheezing abd: no rebound or guarding ,nt, bs present. ext pulses present , no cyanosis left forearm and elbow erythema neuro: axo3 , nonfocal. Objective Data Current Medications Generic Name Dose Route Start Last Admin Trade Name Freq PRN Reason Stop Dose Admin Acetaminophen 650 mg 04/17/21 21:50 Acetaminophen 325 Mg Tablet PO Q6H PRN Pain, Mild (Pain Scale 1-3) Atorvastatin Calcium 80 mg 04/18/21 09:00 04/18/21 08:14 Atorvastatin Calcium 80 Mg Tablet PO Not Given DAILY CHINO Docusate Sodium 100 mg 04/17/21 21:50 Docusate Sodium 100 Mg Capsule PO DAILY PRN Constipation Doxazosin Mesylate 4 mg 04/18/21 09:00 04/18/21 08:13 Doxazosin Mesylate 2 Mg Tablet PO 4 mg DAILY [facility]INO Administration Protocol Finasteride 5 mg 04/17/21 22:15 04/17/21 22:54 Finasteride 5 Mg Tablet PO 5 mg BEDTIME [facility]INO Administration Lorazepam 0.5 mg 04/17/21 21:50 Lorazepam 0.5 Mg Tablet PO TID PRN Anxiety Non-Formulary Medication 400 mg 04/18/21 09:00 Acebutolol PO DAILY CHINO Non-Formulary Medication 200 mg 04/18/21 21:00 Acebutolol PO BEDTIME CHINO Ondansetron HCl 4 mg 04/17/21 21:50 Ondansetron Hcl 4 Mg/2 Ml Vial IVPUSH Q8H PRN Nausea and Vomiting Pharmacy Consult 1 each 04/17/21 19:50 Consult Rx Perform Med Rec MISCELLANE ONCE PRN Consult order Sodium Chloride 3 ml 04/18/21 00:00 04/18/21 08:10 0.9 % Sodium Chloride Flush 3 Ml Syringe IVFLUSH Not Given QSHIFT [facility] Warfarin Sodium 5 mg 04/17/21 23:00 04/17/21 22:54 Warfarin Sodium 5 Mg Tablet PO 5 mg DAILY@1800 [facility] Administration Labs CBC & Chem 7: 04/18/21 05:57 04/18/21 05:57 Assessment and Plan (1) Cellulitis: Status: Acute (2) VIRGEN (acute kidney injury): Status: Acute Assessment and Plan: 85-year-old male with past medical history of AFib, mechanical valve replaced presents to the hospital with complaints of weakness and hypotension. 1. VIRGEN: multifactorial hypotension , bp meds , bactrim, also secondary to low oral intake - improved slightly with IV fluids - will admit to observation for IV fluids - hold nephrotoxic medications - follow BMP 2. hypotension- most likely secondary to dehydration Seems to be improved with hydration, patient p.o. intake is better now. Continue to hold blood pressure medications since blood pressure stepped able range. 3. cellulitis: will avoid bactrim switched to kefzol Id eval added. 4. AFib- continue acebutolol and coumadin
[2021-04-18 11:04] VITALS: BP 119/59; PULSE 60; RESP 17; TEMP 36.7; O2SAT 98
--- NOTE | 2021-04-18 15:25 | MHC.CM.PN ---
nurse career placement specialist note. electronic medical record reviewed along witih case discussed with staff nurse- met with patient he is active , and independent in all adls and mobilit with out any devices , he lives with his , he has no vna /no dme services in the home , discharge plan- home with anticipated no services pcp patient to call his pcp dr carlos a lowe for post hospital discharge follow up transportation family
[2021-04-18 15:32] VITALS: BP 113/59; PULSE 65; RESP 18; TEMP 36.6; O2SAT 97
[2021-04-18] MEDS: 0.9 % Sodium Chloride Flush 3 ML SYRINGE IVFLUSH ×2 (15:41→21:06)
[2021-04-18] MEDS: Warfarin Sodium 5 MG TABLET PO (17:43)
[2021-04-18 19:50] VITALS: BP 129/67; PULSE 57; RESP 18; TEMP 36.3; O2SAT 97
[2021-04-18] MEDS: Finasteride 5 MG TABLET PO (21:05)
[2021-04-18] MEDS: polyethylene glycoL 3350 17 GM POWD.PACK PO (21:51)
[2021-04-19] VITALS: BP 124/73; PULSE 70; RESP 18; TEMP 36.8; O2SAT 97
[2021-04-19 04:00] VITALS: BP 156/74; PULSE 62; RESP 16; TEMP 36.7; O2SAT 98
[2021-04-19 07:54] VITALS: BP 151/73; PULSE 59; RESP 16; TEMP 36.6; O2SAT 98
[2021-04-19] MEDS: polyethylene glycoL 3350 17 GM POWD.PACK PO (08:06)
[2021-04-19] MEDS: Doxazosin Mesylate 2 MG TABLET 4 MG PO (08:06)
[2021-04-19] MEDS: 0.9 % Sodium Chloride Flush 3 ML SYRINGE IVFLUSH (08:07)
[2021-04-19 08:42] LABS: Hematocrit 33.2 % (42-52); Hemoglobin 10.7 g/dl (14.0-18.0)
[2021-04-19 09:10] LABS: INTERNATIONAL NORM RATIO 2.9 (0.9-1.1); Prothrombin Time 35.2 SEC (10.8-13.0)
[2021-04-19 09:11] LABS: Anion Gap 9 (12-20); Blood Urea Nitrogen 11 mg/dL (9-16); Calcium 8.7 mg/dL (8.4-10.2); Carbon Dioxide 27 mmol/L (22-29); Chloride 106 mmol/L (96-108); Creatinine Clr Calc Pharmacy 74.2; Estimated Glomerular Filt Rate > 60; Glucose Random 108 mg/dL (60-115); Potassium 4.3 mmol/L (3.3-5.1); Sodium 138 mmol/L (135-145)
[2021-04-19 11:35] VITALS: BP 129/64; PULSE 61; RESP 16; TEMP 36.7; O2SAT 99
--- NOTE | 2021-04-19 13:45 | PM.DS ---
DS: Providers Provider Date of Service: 04/21/21 Date of admission: 04/17/21 21:33 Primary care physician: Milton Durán MD Consults: 04/18/21 09:04 Consult to Infectious Diseases Routine Consulting Provider: Mayda Villalta Reason for consultation: left upper ext cellulitis was on bactrim , now has virgen Has provider been notified: No DS: Diagnosis Discharge Diagnosis (1) Cellulitis: Status: Acute (2) VIRGEN (acute kidney injury): Status: Acute DS: Medications Discharge Medications Home Medications: Home Medications Medication Instructions Recorded Confirmed acebutolol 200 mg PO BEDTIME 04/17/21 04/17/21 acebutolol 400 mg PO DAILY 04/17/21 04/17/21 doxazosin 1 tab PO DAILY 04/17/21 04/17/21 finasteride 1 tab PO BEDTIME 04/17/21 04/17/21 furosemide 1 tab PO QAM 04/17/21 04/17/21 lisinopril 20 mg PO DAILY 04/17/21 04/17/21 lorazepam 1 tab PO TID PRN 04/17/21 04/17/21 rosuvastatin 1 tab PO DAILY 04/17/21 04/17/21 sulfamethoxazole-trimethoprim 1 tab PO BID 04/17/21 04/17/21 warfarin 5 mg PO DAILY@1800 04/17/21 04/17/21 DS: Summary Hospital Course Hospital Course: 85-year-old male with past medical history of AFib, hypertension, aortic mechanical valve, presents the hospital with complaints of hypotension. About 2 weeks ago patient injured his left arm, subsequently developed pain cellulitis, was seen by wardrobe technician on Friday and was started on Bactrim. He reports that he noticed improvement in his left arm swelling, pain, and redness but he was not feeling well over the last few days, stating that he was feeling off, weak, and therefore presented to his PCP. At his PCPs office blood pressure was found to be low and therefore he was sent to the hospital. Patient herself denies any headache, change in vision, no chest pain, no palpitations, no abdominal pain nausea or vomiting, no diarrhea constipation, no urinary symptoms and no lower extremity edema. He reports that he may not have been drinking and eating enough. To the ED patient had a temp of 97? point nine, heart rate of 73, respiratory rate of 18, blood pressure 97/59, satting 96% on room air. Patient received improving to 150s over 70s. WBC count of 5.3, hemoglobin of 11.8, PT of 29.4, INR of 2.5, BUN of 20, creatinine of 1.46 with baseline around 1, UA positive for blood and RBC, no urinary infection. labs otherwise unremarkable. COVID-19 negative. Chest x-ray shows chronic appearing changes with no acute disease. Hospital course problem da[place] section: VIRGEN: multifactorial hypotension , bp meds . Patient came to the hospital because of renal failure , low blood pressure which was thought to be secondary to dehydration/blood pressure medications. Patient was subsequently hydrated and his Lasix and lisinopril was on hold-his renal function is now at baseline, recommended to start Lasix and subsequently repeat renal function and electrolytes with PCP and further start lisinopril according to PCP in next 2-3 days. Monitor blood pressure closely at home. 2. hypotension- most likely secondary to dehydration Seems to be improved with hydration, patient p.o. intake is better now. please see above also. 3. cellulitis: will avoid bactrim -might have contributed to virgen. Please complete the course of Keflex antibiotic . Please follow-up with your wardrobe technician. 4. afib da[place] : continue his acebutalol and warfarin , inr therapeutic. Above management discussed with the patient in detail length he understand and in agreement with the above plan, time spent 50 minutes and 50% time spent on counseling. Significant findings: As above. Procedures performed: None. Treatment and response: As above. Complications: None. Time Spent with Patient Time attestation: Total time spent providing and/or coordinating discharge services: Discharge coordination time: Greater than 30 minutes Quality: Stroke Does the patient have a stroke diagnosis?: No Physical Exam Vital Signs: Vital Signs: Last Vital Signs Temp 98.1 F 04/19/21 11:35 Pulse 61 04/19/21 11:35 Resp 16 04/19/21 11:35 BP 129/64 04/19/21 11:35 Pulse Ox 99 04/19/21 11:35 Body Mass Index 28.2 Physical exam: Constitutional: What in acute distress Cvs: [id number], [id number] , no murmur res: clear to auscultation ,no rhonchii or wheezing abd: no rebound or guarding ,nt, bs present. ext pulses present , no cyanosis neuro: axo3 , nonfocal. skin: Left forearm area and elbow area erythema seems to be improving significantly, no swelling or fluctuations. DS: Data Data Completed and Pending Labs on day of discharge: Laboratory Results - last 24 hr 04/19/21 04/19/21 04/19/21 08:11 08:18 08:18 Hgb 10.7 L Hct 33.2 L PT 35.2 H INR 2.9 H Sodium 138 Potassium 4.3 Chloride 106 Carbon Dioxide 27 Anion Gap 9 L BUN 11 Creatinine 1.02 Estim Creat Clear Calc 74.2 Estimated GFR > 60 Random Glucose 108 Calcium 8.7 D Preliminary micro results at discharge 04/17/21 16:36 Blood Culture - Preliminary Blood - Venous No growth after 24 hours. 04/17/21 16:36 Blood Culture - Preliminary Blood - Venous No growth after 24 hours. Discharge Plan Discharge Patient Disposition: Home, Self-Care Discharge Diagnosis: virgen , cellulitis Referrals: Milton Durán MD [Primary Care Provider] - 1 Week Discharge Medications: New cephalexin 500 mg capsule 500 mg PO TID Qty: 14 RF: 0 Continued lorazepam 0.5 mg tablet 1 tab PO TID PRN (Reason: Anxiety) RF: 0 furosemide 80 mg tablet 1 tab PO QAM RF: 0 doxazosin 4 mg tablet 1 tab PO DAILY RF: 0 acebutolol 200 mg capsule 400 mg PO DAILY RF: 0 finasteride 5 mg tablet 1 tab PO BEDTIME RF: 0 rosuvastatin 40 mg tablet 1 tab PO DAILY RF: 0 acebutolol 200 mg capsule 200 mg PO BEDTIME RF: 0 warfarin 5 mg Tablet 5 mg PO DAILY@1800 RF: 0 Held lisinopril 20 mg tablet 20 mg PO DAILY RF: 0 Hold Instructions: Resume on 04/23/21. Discontinued sulfamethoxazole-trimethoprim 800-160 mg tablet 1 tab PO BID RF: 0 Discharge Orders: Discharge Order (Routine); Ordered 04/19/21 Ordered By: Juan Bailey Diet: advance to usual diet Activity on Discharge: As tolerated Stand Alone Forms: Patient Portal Discharge page Other Ambulatory Orders: Basic Metabolic Panel Fasting (Routine) Timeframe: [id number] Facility: [facility] - Location: Laboratory Ordered By: Juan Bailey Care Plan Goals: Patient came to the hospital because of renal failure , low blood pressure which was thought to be secondary to dehydration/blood pressure medications. Patient was subsequently hydrated and his Lasix and lisinopril was on hold-his renal function is now at baseline, recommended to start Lasix and subsequently repeat renal function and electrolytes with PCP and further start lisinopril according to PCP in next 2-3 days. Monitor blood pressure closely at home. Please complete the course of Keflex antibiotic . Please follow-up with your wardrobe technician. Health Concerns: As above. Plan of Treatment: As above. Assessment: As above. Discharge Date/Time: 04/19/21 15:30
--- NOTE | 2021-04-19 22:07 | W.PM.IDCN ---
History of Present Illness Data of Consult Service Date: 04/19/21 Requesting physician: Juan Bailey Primary Care Provider: MD JUANITA Joyner Reason for consult: left arm cellulitis He has red left arm for last 5 days He has no fever or chills He was started on Bactrim and had increased creatinine Review of Systems Review of Systems: Yes all other systems are reviewed and are negative [facility] Past Medical History Medical History Atrial fibrillation HTN (hypertension) Family History Family history: reviewed and not pertinent Surgical History Surgical History Aortic valve replaced History of cholecystectomy Social History Social History Alcohol intake: current Alcohol intake frequency: 0-2 drinks per day service: Yes Current occupational status: retired Meds Allergies Allergy/AdvReac Type Severity Reaction Status Date / Time adhesive [ADHESIVE] Allergy Intermediate RASH, Verified 04/17/21 20:06 BLISTERS atenolol [Atenolol] Allergy Mild RASH Verified 04/17/21 20:06 sotalol [Sotalol] Allergy Mild RASH Verified 04/17/21 20:06 atorvastatin [From Lipitor] AdvReac Mild SEVERE Verified 04/17/21 20:06 ACHES AND PAINS Home Medications Medication Instructions Recorded Confirmed Last Taken Type acebutolol 200 mg PO BEDTIME 04/17/21 04/17/21 04/16/21 History acebutolol 400 mg PO DAILY 04/17/21 04/17/21 Unknown History doxazosin 1 tab PO DAILY 04/17/21 04/17/21 Unknown History finasteride 1 tab PO BEDTIME 04/17/21 04/17/21 Unknown History furosemide 1 tab PO QAM 04/17/21 04/17/21 Unknown History lisinopril 20 mg PO DAILY 04/17/21 04/17/21 Unknown History lorazepam 1 tab PO TID PRN 04/17/21 04/17/21 Unknown History rosuvastatin 1 tab PO DAILY 04/17/21 04/17/21 Unknown History warfarin 5 mg PO DAILY@1800 04/17/21 04/17/21 04/16/21 History Physical Exam Vital Signs: Vital Signs: Last Vital Signs Temp 98.1 F 04/19/21 11:35 Pulse 61 04/19/21 11:35 Resp 16 04/19/21 11:35 BP 129/64 04/19/21 11:35 Pulse Ox 99 04/19/21 11:35 Body Mass Index 28.2 Const: General: cooperative HENMT: Head: Yes normal to inspection Mouth: Normal oral and palatal mucosa present Resp: Effort & Inspection: normal respiratory effort Cardio: Rate: regular rate Rhythm: regular rhythm GI: Inspection: Yes normal to inspection Skin: General skin exam: no rashes or lesions noted Extrem: Other: left arm cellulitis red Results Labs CBC & Chem 7: 04/19/21 08:18 04/19/21 08:18 Labs: Short CBC 04/19/21 Range/Units 08:18 Hgb 10.7 L (14.0-18.0) g/dl Hct 33.2 L (42-52) % BMP 04/19/21 08:18 Sodium 138 Potassium 4.3 Chloride 106 Carbon Dioxide 27 BUN 11 Creatinine 1.02 Calcium 8.7 D Microbiology Microbiology Results: Microbiology 04/17/21 16:36 Blood - Venous Blood Culture - Preliminary No growth after 48 hours. 04/17/21 16:36 Blood - Venous Blood Culture - Preliminary No growth after 48 hours. Assessment and Plan (1) Cellulitis: Status: Acute He has possible staph or strep He has VIRGEN due to Bactrim Would continue Kefzol Change to Keflex on discharge for 5 days
== END 2021-04-19 15:30 | disposition home or self-care (01) ==
LOC: HO.ED 19:50 → HO.EDOVER 21:51 → HO.S3 21:53
PROVIDERS: Admitting Provider Internal Medicine; Emergency Provider Emergency Medicine; PCP Family Medicine; Visit Provider Internal Medicine
DX: N17.9 Acute kidney failure, unspecified (principal); L03.114 Cellulitis of left upper limb; E86.0 Dehydration; N14.1 Nephropathy induced by other drugs, medicaments and biological substances; T36.8X5A Adverse effect of other systemic antibiotics, initial encounter; Y92.9 Unspecified place or not applicable; I95.9 Hypotension, unspecified; I48.91 Unspecified atrial fibrillation; I10 Essential (primary) hypertension; I45.10 Unspecified right bundle-branch block; R94.31 Abnormal electrocardiogram [ECG] [EKG]; Z87.891 Personal history of nicotine dependence; Z20.822 Contact with and (suspected) exposure to COVID-19; Z88.8 Allergy status to other drugs, medicaments and biological substances; Z91.048 Other nonmedicinal substance allergy status; Z95.2 Presence of prosthetic heart valve; Z79.01 Long term (current) use of 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; Z79.899 Other long term (current) drug therapy
CPT/HCPCS: 36415; 71045; 80048; 80053; 80076; 81001; 83605; 84484; 85014; 85018; 85025; 85610; 85730; 87040; 87635; 93005; 96361; 96365; 96374; 99218; 99285; J0690

== ENCOUNTER 2021-04-23 06:48 | Outpatient (REF) | payer MEDICARE, OTHER, SELFPAY ==
[2021-04-23 08:27] LABS: Anion Gap 11 (12-20); Blood Urea Nitrogen 16 mg/dL (9-16); Calcium 8.9 mg/dL (8.4-10.2); Carbon Dioxide 28 mmol/L (22-29); Chloride 102 mmol/L (96-108); Estimated Glomerular Filt Rate > 60; Glucose Fasting 97 mg/dL (60-99); Potassium 4.2 mmol/L (3.3-5.1); Sodium 137 mmol/L (135-145)
== END 2021-04-23 06:49 | disposition home or self-care (01) ==
LOC: HO.LAB 06:48
PROVIDERS: Absent Provider Family Medicine; PCP Family Medicine; Visit Provider Internal Medicine
DX: N17.9 Acute kidney failure, unspecified (principal)
CPT/HCPCS: 36415; 80048

== ENCOUNTER 2021-04-26 15:37 | Outpatient (REF) | payer MEDICARE, OTHER, SELFPAY ==
[2021-04-26 16:24] LABS: MANUAL DIFF FLAG NO
[2021-04-26 16:27] LABS: Basophils Absolute Auto 0.1 X10*3/uL (0.0-0.2); Basophils Percent Auto 0.8 % (0-2); Eosinophils Absolute Auto 0.6 X10*3/uL (0.0-0.4); Eosinophils Percent Auto 8.9 % (0-4); Hematocrit 32.9 % (42-52); Hemoglobin 10.9 g/dl (14.0-18.0); Imm Gran Abs Auto 0.03 X10*3/uL (0.00-0.03); Imm Gran Pct Auto 0.5 % (0.0-0.4); Lymphocytes Absolute Auto 1.9 X10*3/uL (1.2-4.9); Mean Corpuscular HGB Conc 33.1 g/dl (31.0-36.0); Mean Corpuscular Hemoglobin 31.1 pg (27.0-33.0); Mean Corpuscular Volume 93.7 fL (80-98); Mean Platelet Volume 11.4 fL (9.4-12.4); Monocytes Absolute Auto 1.1 X10*3/uL (0.1-1.2); Monocytes Percent Auto 17.4 % (2-11); Neutrophils Absolute Auto 2.6 X10*3/uL (2.0-8.3); Neutrophils Percent Auto 42.4 % (45-73); Platelet Count 191 X10*3/uL (160-400); Red Blood Count 3.51 X10*6/uL (4.60-5.80); Red Cell Distribution Width 17.9 % (11.0-16.0); White Blood Count 6.2 X10*3/uL (4.8-10.8)
== END 2021-04-26 15:38 | disposition home or self-care (01) ==
LOC: HO.LAB 15:37
PROVIDERS: PCP Family Medicine; Visit Provider Family Medicine
DX: L03.90 Cellulitis, unspecified (principal); L30.9 Dermatitis, unspecified
CPT/HCPCS: 36415; 85025

== ENCOUNTER 2021-05-10 10:47 | Outpatient (REF) | payer MEDICARE, OTHER, SELFPAY ==
[2021-05-10 11:36] LABS: Immature Retic Fraction 13.1 % (2.3-13.4); Reticulocyte Percent 1.1 % (0.5-1.8); Reticulocytes Absolute 0.039 X10*6/uL (0.026-0.095)
[2021-05-10 12:33] LABS: Iron 112 mcg/dL (45-160); Percent Iron Saturation 35 % (15-50); Total Iron Binding Capacity 323 mcg/dL (228-428); Unsaturated Iron Binding 211 ug/dL
[2021-05-10 12:53] LABS: Vitamin B12 526 pg/mL (200-900)
== END 2021-05-10 10:48 | disposition home or self-care (01) ==
LOC: HO.LAB 10:47
PROVIDERS: PCP Family Medicine; Visit Provider Family Medicine
DX: D64.9 Anemia, unspecified (principal)
CPT/HCPCS: 36415; 82607; 82746; 83540; 85045

== ENCOUNTER 2021-06-14 10:54 | Outpatient (REF) | payer MEDICARE, OTHER, SELFPAY ==
[2021-06-14 11:30] LABS: Basophils Percent Auto 0.8 % (0-2); Eosinophils Absolute Auto 0.1 X10*3/uL (0.0-0.4); Eosinophils Percent Auto 2.3 % (0-4); Hematocrit 31.9 % (42-52); Hemoglobin 10.4 g/dl (14.0-18.0); Imm Gran Abs Auto 0.02 X10*3/uL (0.00-0.03); Imm Gran Pct Auto 0.4 % (0.0-0.4); Lymphocytes Absolute Auto 1.4 X10*3/uL (1.2-4.9); Lymphocytes Percent Auto 26.3 % (20-40); MANUAL DIFF FLAG SCAN; Mean Corpuscular HGB Conc 32.6 g/dl (31.0-36.0); Mean Corpuscular Hemoglobin 31.3 pg (27.0-33.0); Mean Corpuscular Volume 96.1 fL (80-98); Mean Platelet Volume 11.6 fL (9.4-12.4); Monocytes Absolute Auto 1.1 X10*3/uL (0.1-1.2); Monocytes Percent Auto 20.3 % (2-11); Neutrophils Absolute Auto 2.7 X10*3/uL (2.0-8.3); Neutrophils Percent Auto 49.9 % (45-73); Platelet Count 187 X10*3/uL (160-400); Red Blood Count 3.32 X10*6/uL (4.60-5.80); Red Cell Distribution Width 18.6 % (11.0-16.0); SCAN SMEAR FLAG 1; White Blood Count 5.3 X10*3/uL (4.8-10.8)
[2021-06-14 13:17] LABS: SLIDE REVIEW VERIFIED
== END 2021-06-14 10:55 | disposition home or self-care (01) ==
LOC: HO.LAB 10:54
PROVIDERS: Family Medicine; PCP Internal Medicine; Visit Provider Internal Medicine
DX: D64.9 Anemia, unspecified (principal)
CPT/HCPCS: 36415; 85025

== ENCOUNTER → 2021-07-19 12:48 | Outpatient (BNVA) | payer MEDICARE, OTHER, SELFPAY | PROVIDERS: PCP Family Medicine; Visit Provider Orthopaedic Surgery | DX: M17.0 Bilateral primary osteoarthritis of knee (principal); M25.562 Pain in left knee; M25.561 Pain in right knee; I48.91 Unspecified atrial fibrillation; I10 Essential (primary) hypertension; Z88.8 Allergy status to other drugs, medicaments and biological substances; Z95.2 Presence of prosthetic heart valve | CPT/HCPCS: 20610; 99202; J1100 ==

== ENCOUNTER 2021-08-14 11:25 | Outpatient (REF) | payer MEDICARE, OTHER, SELFPAY ==
[2021-08-14 13:33] LABS: MANUAL DIFF FLAG NO
[2021-08-14 13:47] LABS: INTERNATIONAL NORM RATIO 3.3 (0.9-1.1); Prothrombin Time 38.9 SEC (9.9-13.0)
[2021-08-14 13:50] LABS: Basophils Percent Auto 0.7 % (0-2); Eosinophils Absolute Auto 0.1 X10*3/uL (0.0-0.4); Eosinophils Percent Auto 2.4 % (0-4); Hematocrit 34.2 % (42-52); Hemoglobin 11.2 g/dl (14.0-18.0); Imm Gran Abs Auto 0.03 X10*3/uL (0.00-0.03); Imm Gran Pct Auto 0.6 % (0.0-0.4); Lymphocytes Percent Auto 36.8 % (20-40); Mean Corpuscular HGB Conc 32.7 g/dl (31.0-36.0); Mean Corpuscular Hemoglobin 30.7 pg (27.0-33.0); Mean Corpuscular Volume 93.7 fL (80-98); Mean Platelet Volume 11.6 fL (9.4-12.4); Monocytes Percent Auto 18.1 % (2-11); Neutrophils Absolute Auto 2.2 X10*3/uL (2.0-8.3); Neutrophils Percent Auto 41.4 % (45-73); Platelet Count 166 X10*3/uL (160-400); Red Blood Count 3.65 X10*6/uL (4.60-5.80); Red Cell Distribution Width 18.6 % (11.0-16.0); White Blood Count 5.4 X10*3/uL (4.8-10.8)
[2021-08-14 13:59] LABS: Anion Gap 14 (12-20); Blood Urea Nitrogen 24 mg/dL (9-16); Carbon Dioxide 27 mmol/L (22-29); Chloride 103 mmol/L (96-108); Estimated Glomerular Filt Rate > 60; Potassium 4.4 mmol/L (3.3-5.1); Sodium 140 mmol/L (135-145)
== END 2021-08-14 11:26 | disposition home or self-care (01) ==
LOC: HO.LAB 11:25
PROVIDERS: PCP Family Medicine; Visit Provider Family Medicine
DX: I10 Essential (primary) hypertension (principal); D64.9 Anemia, unspecified
CPT/HCPCS: 36415; 80051; 82565; 84520; 85025; 85610

== ENCOUNTER 2021-10-09 15:05 | Outpatient (REF) | payer MEDICARE, OTHER, SELFPAY ==
[2021-10-09 16:01] LABS: Influenza A PCR NEGATIVE (Negative); Influenza B PCR NEGATIVE (Negative); Resp Syncy Virus RNA Qual PCR NEGATIVE (Negative); SARS COV2 PCR INHOUSE NEGATIVE (Negative)
== END 2021-10-09 15:06 | disposition home or self-care (01) ==
LOC: HO.LAB 15:05
PROVIDERS: PCP Family Medicine; Visit Provider Family Medicine
DX: R09.89 Other specified symptoms and signs involving the circulatory and respiratory systems (principal); R50.9 Fever, unspecified; Z20.822 Contact with and (suspected) exposure to COVID-19
CPT/HCPCS: 0241U; 36415; C9803

== ENCOUNTER 2021-10-24 22:54 | Emergency (ER) | payer MEDICARE, OTHER, SELFPAY ==
--- NOTE | ~2021-10-24 | XR_ITS ---
EXAMINATION: XR CHEST CLINICAL INFORMATION: Cough, congestion COMPARISON: 04/17/2021 TECHNIQUE: 2 views of the chest were obtained. FINDINGS: Lung volumes are symmetric. No focal consolidation is seen. No evidence of pneumothorax, pleural effusion, or pulmonary edema. The cardiomediastinal contour is unremarkable. Valve prosthesis and sternal wires are noted. No acute osseous findings are seen. XR/XR chest 2V IMPRESSION: No acute cardiopulmonary findings.
[2021-10-24 22:58] VITALS: BP 147/74; PULSE 72; RESP 18; TEMP 36.2; O2SAT 98; BMI 29.0
--- NOTE | 2021-10-24 23:12 | ED_ITS ---
HPI - URI/Sore Throat General Chief Complaint: Upper Respiratory Symptoms Stated Complaint: sore throat Time Seen by Provider: 10/24/21 23:10 Source: patient Mode of arrival: ambulatory Limitations: no limitations History of Present Illness HPI Narrative: 85-year-old male with history of mechanical aortic valve on Coumadin, osteoarthritis, HTN, paroxysmal atrial fibrillation who presents to the ER with 2 and half weeks of cold symptoms. He states they have devolved unchanged over the last 2 and half weeks and his had similar symptoms however not as worse as his. He states he has had nasal congestion, frontal sinus pressure & hacking cough with phlegm production that is now improved, & sore throat with painful swallowing. The sore throat is what really bothered him today and brought him into the emergency room for evaluation. He is fully vaccinated for COVID-19. He has not had any fever or chills. He states he has been doing saline gargles with no improvement in the sore throat. MD elicited complaint: cough, sore throat and nasal congestion Onset (ago): week(s) (2.5) Consistency: constant Severity: moderate Description of mucous: clear Able to tolerate fluids by mouth: Yes Exacerbating factors: swallowing Relieving factors: nothing Context: sick contacts Associated symptoms: headache, nasal congestion, sore throat and cough Treatments prior to arrival: none Related Data Home Medications Medication Instructions Recorded Confirmed acebutolol 200 mg capsule 200 mg PO BEDTIME 04/17/21 04/17/21 acebutolol 200 mg capsule 400 mg PO DAILY 04/17/21 04/17/21 doxazosin 4 mg tablet 1 tab PO DAILY 04/17/21 04/17/21 finasteride 5 mg tablet 1 tab PO BEDTIME 04/17/21 04/17/21 furosemide 80 mg tablet 1 tab PO QAM 04/17/21 04/17/21 lisinopril 20 mg tablet 20 mg PO DAILY 04/17/21 04/17/21 lorazepam 0.5 mg tablet 1 tab PO TID PRN 04/17/21 04/17/21 rosuvastatin 40 mg tablet 1 tab PO DAILY 04/17/21 04/17/21 warfarin 5 mg tablet 5 mg PO DAILY@1800 04/17/21 04/17/21 potassium chloride 20 mEq 20 meq PO DAILY 07/19/21 tablet,extended release(part/cryst) (Klor-Con M) spironolactone 25 mg tablet 25 mg PO QAM 07/19/21 Previous Rx's Medication Instructions Recorded cephalexin 500 mg capsule 500 mg PO TID #14 cap 04/19/21 amoxicillin 875 mg-potassium 1 tab PO BID #14 tab 10/25/21 clavulanate 125 mg tablet (Augmentin) Allergies Allergy/AdvReac Type Severity Reaction Status Date / Time adhesive [ADHESIVE] Allergy Intermediate RASH, Verified 07/19/21 12:55 BLISTERS atenolol [Atenolol] Allergy Mild RASH Verified 07/19/21 12:55 sotalol [Sotalol] Allergy Mild RASH Verified 07/19/21 12:55 atorvastatin [From Lipitor] AdvReac Mild SEVERE Verified 07/19/21 12:55 ACHES AND PAINS Review of Systems Review of Systems: Constitutional: No Fever, No Chills ENT/Mouth: + sore throat, No Rhinorrhea, No Swallowing Difficulty, +Painful swallowing Cardiovascular: No Chest Pain, No SOB, No Orthopnea, No Edema Respiratory: + Cough, + Sputum, No Wheezing, No dyspnea Gastrointestinal: No Nausea, No Vomiting, No Diarrhea, No abdominal Pain Genitourinary: No Dysuria, No Urinary Frequency Musculoskeletal: No joint pain, No Myalgias Skin: No Skin Lesions, No rash Neuro: No Weakness, No Numbness, No Dizziness, + Headache Psych: No Anxiety/Panic, No Depression Heme/Lymph: + Bruising, No Lymphadenopathy PMFSH Past Medical History Medical History Atrial fibrillation HTN (hypertension) Surgical History Aortic valve replaced History of cholecystectomy Social History Social History Alcohol intake: current Alcohol intake frequency: 0-2 drinks per day Advance Directives: No Advance Directives Information Provided: Yes service: Yes Current occupational status: retired Physical Exam Vital Signs: Vital Signs: Last Vital Signs Temp 97.2 F 10/24/21 22:58 Pulse 72 10/24/21 22:58 Resp 18 10/24/21 22:58 BP 147/74 H 10/24/21 22:58 Pulse Ox 98 10/24/21 22:58 Body Mass Index 29.0 Appearance: Alert. Oriented X3. No acute distress. Appears younger than stated age Eyes: Pupils equal, round and reactive to light. ENT: Pharynx with moderate generalized erythema, no tonsillar exudate or swelling. Uvula midline. Normal voice, handling secretions normally. Neck: Normal inspection. Neck supple. No lymphadenopathy CVS: Normal heart rate and rhythm. Pulses normal. Audible systolic click Respiratory: No respiratory distress. Breath sounds normal. Skin: Skin warm and dry. Normal skin color. Normal skin turgor. No rashes. Extremities: No lower extremity edema. Ecchymosis on the right forearm without tenderness, warmth, erythema. No weeping or bleeding. Neuro: Oriented X 3. No motor deficit. No sensory deficit. Ambulates with steady gait. Course Course Course Narrative: 85-year-old male presenting to the ER with sore throat, congestion, sinus pressure, & productive cough on and off for the last 2 and half weeks. On arrival to the ER here appears well. He is afebrile with O2 sats 98% on room air. His exam is benign. Will swab for COVID, flu, RSV, strep throat and obtain a two view chest x-ray to rule out pneumonia. Reevaluation(s) Reevaluation #1: Strep is negative. Chest x-ray is clear. He continues to appear well. At this time is stable for discharge home. Will call if viral PCR is positive. Will plan to discharge on oral Augmentin given his symptoms have been going on for over 2 and half weeks w/ nasal congestion, sinus pressure and phlegm is yellow. Encourage follow-up with his doctor next week. Stable for DC home, patient agreeable with plan. MDM - URI/Sore Throat Lab Data Labs: Lab Results 10/24/21 Range/Units 23:02 S. pyogenes GrpA NIKOS Negative (Negative) Critical Care Time Critical Care Time Critical Care Time: No Discharge Plan Discharge Clinical Impression: Upper respiratory infection Qualifiers: URI type: unspecified URI Qualified Code(s): J06.9 - Acute upper respiratory infection, unspecified Patient Disposition: Home, Self-Care Instructions: Upper Respiratory Infection (ED) Additional Instructions: Your chest x-ray did not show any evidence of pneumonia Your strep throat test was negative Your tested for COVID-19, influenza and RSV-if any of these are positive we will call you. Take the prescribed antibiotic as directed, complete the entire course. This was sent to the [facility] at [address] [place] [address] in [place] Rest and stay hydrated make sure to drink plenty of water. Continue warm saltwater gargles several times per day. Also recommend [id number] Chloraseptic spray and/or Cepacol lozenges as needed for sore throat. Follow-up with your doctor early next week. If you develop new or worsening symptoms call 911 or come back to the ER for further evaluation. Prescriptions: New amoxicillin-pot clavulanate [Augmentin] 875-125 mg tablet 1 tab PO BID Qty: 14 RF: 0 No Action lisinopril 20 mg tablet 20 mg PO DAILY RF: 0 Hold Instructions: Resume on 04/23/21. lorazepam 0.5 mg tablet 1 tab PO TID PRN (Reason: Anxiety) RF: 0 furosemide 80 mg tablet 1 tab PO QAM RF: 0 doxazosin 4 mg tablet 1 tab PO DAILY RF: 0 acebutolol 200 mg capsule 400 mg PO DAILY RF: 0 finasteride 5 mg tablet 1 tab PO BEDTIME RF: 0 rosuvastatin 40 mg tablet 1 tab PO DAILY RF: 0 acebutolol 200 mg capsule 200 mg PO BEDTIME RF: 0 warfarin 5 mg Tablet 5 mg PO DAILY@1800 RF: 0 cephalexin 500 mg capsule 500 mg PO TID Qty: 14 RF: 0 potassium chloride [Klor-Con M20] 20 mEq tablet,ER particles/crystals 20 meq PO DAILY RF: 0 spironolactone 25 mg tablet 25 mg PO QAM RF: 0
[2021-10-24 23:17] LABS: Strep A Nucleic Acid Negative (Negative)
[2021-10-25 00:44] LABS: Influenza A PCR NEGATIVE (Negative); Influenza B PCR NEGATIVE (Negative); Resp Syncy Virus RNA Qual PCR NEGATIVE (Negative); SARS COV2 PCR INHOUSE NEGATIVE (Negative)
[2021-10-25] MEDS: Amoxicillin/Potassium Clav 875 MG TABLET PO (00:47)
== END 2021-10-25 01:09 | disposition home or self-care (01) ==
PROVIDERS: Emergency Provider Student in an Organized Health Care Education/Training Program; PCP Family Medicine
DX: J06.9 Acute upper respiratory infection, unspecified (principal); I48.0 Paroxysmal atrial fibrillation; I10 Essential (primary) hypertension; Z20.822 Contact with and (suspected) exposure to COVID-19; Z79.899 Other long term (current) drug therapy; Z79.01 Long term (current) use of 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
CPT/HCPCS: 0241U; 36415; 71046; 87651; 99283

== ENCOUNTER 2021-11-02 09:37 | Inpatient (IN) | payer MEDICARE, OTHER, SELFPAY ==
[2021-11-02] VITALS (11 sets, daily range): BP systolic 107–161; BP diastolic 55–87; PULSE 76–87; RESP 13–24; TEMP 36.8–37.9; O2SAT 88–99; BMI 23.7
--- NOTE | ~2021-11-02 | XR_ITS ---
EXAMINATION: XR CHEST CLINICAL INFORMATION: SOB. COMPARISON: Chest 10/24/2021 TECHNIQUE: 2 views of the chest were obtained. FINDINGS: The lungs are hyperinflated with patchy opacity seen in the right upper lobe likely infiltrate. Rest of the lungs are clear. The heart size and pulmonary vascularity is normal. There are median sternotomy sutures and aortic valve prosthesis in place. No gross bony abnormality. XR/XR chest 2V IMPRESSION: Right upper lobe infiltrate. Rest of lungs are clear.
--- NOTE | 2021-11-02 09:38 | ECG_ITS ---
Test Reason : SOB Blood Pressure : / mmHG Vent. Rate : 079 BPM Atrial Rate : 000 BPM P-R Int : 000 ms QRS Dur : 114 ms QT Int : 394 ms P-R-T Axes : 000 -25 093 degrees QTc Int : 451 ms Atrial fibrillation Minimal voltage criteria for LVH, may be normal variant ( Jerrell product ) Nonspecific ST and T wave abnormality Abnormal ECG When compared with ECG of 17-APR-2021 20:33, No significant change was found Referred By: Walt Davis Electronically Signed By:MARYSE BRAR
--- NOTE | 2021-11-02 09:57 | ED_ITS ---
HPI - SOB/Dyspnea General Chief Complaint: General Medical Stated Complaint: high bp Time Seen by Provider: 11/02/21 09:57 Source: patient Mode of arrival: ambulatory Limitations: no limitations History of Present Illness HPI Narrative: 4 weeks ago patient treated for URI and started on amoxicillin. 2 weeks ago CXR and COVID were negative. 3 days ago patient with decreased energy and increasing shortness of breath. patient with fever to 101.6 yesterday. MD elicited complaint: shortness of breath and chest pain Onset (ago): week(s) Context: recent illness Severity: mild Exacerbating factors: exertion Associated symptoms: fever and cough Related Data Home Medications Medication Instructions Recorded Confirmed acebutolol 200 mg capsule 200 mg PO BEDTIME 04/17/21 11/02/21 acebutolol 200 mg capsule 400 mg PO DAILY 04/17/21 11/02/21 doxazosin 4 mg tablet 1 tab PO DAILY 04/17/21 11/02/21 finasteride 5 mg tablet 5 mg PO BEDTIME 04/17/21 11/02/21 furosemide 80 mg tablet 1 tab PO QAM 04/17/21 11/02/21 lisinopril 20 mg tablet 20 mg PO DAILY 04/17/21 11/02/21 rosuvastatin 40 mg tablet 1 tab PO DAILY 04/17/21 11/02/21 potassium chloride 20 mEq 20 meq PO DAILY 07/19/21 11/02/21 tablet,extended release(part/cryst) (Klor-Con M) spironolactone 25 mg tablet 25 mg PO QAM 07/19/21 11/02/21 celecoxib 200 mg capsule 1 cap PO DAILY 11/02/21 11/02/21 warfarin 4 mg tablet 4 mg PO DAILY@1800 11/02/21 11/02/21 Allergies Allergy/AdvReac Type Severity Reaction Status Date / Time adhesive [ADHESIVE] Allergy Intermediate RASH, Verified 07/19/21 12:55 BLISTERS atenolol [Atenolol] Allergy Mild RASH Verified 07/19/21 12:55 sotalol [Sotalol] Allergy Mild RASH Verified 07/19/21 12:55 atorvastatin [From Lipitor] AdvReac Mild SEVERE Verified 07/19/21 12:55 ACHES AND PAINS Review of Systems Constitutional: Constitutional: Reports no additional constitutional complaints Eyes: Eyes: Reports no additional eye complaints ENT: Denies dizziness Cardiovascular: Cardiovascular: Reports no additional cardiovascular complaints Respiratory: Respiratory: Reports as per HPI Gastrointestinal: Gastrointestinal: Reports no additional gastrointestinal complaints Musculoskeletal: Musculoskeletal: Reports no additional musculoskeletal complaints Integumentary/Breasts: Skin/Breast: Denies rash Neurologic: Reports system reviewed and no additional complaints, except as documented, Denies dizziness and Denies Sensory deficit (Neuro) Psychiatric: Psychiatric: Denies anxiety [facility] Past Medical History Medical History Atrial fibrillation HTN (hypertension) Surgical History Aortic valve replaced History of cholecystectomy Social History Social History Alcohol intake: current Alcohol intake frequency: 0-2 drinks per day Advance Directives: No Advance Directives Information Provided: No service: Yes Current occupational status: retired Physical Exam Vital Signs: Vital Signs: Last Vital Signs Temp 100.3 F 11/02/21 14:33 Pulse 76 11/02/21 14:33 Resp 23 H 11/02/21 14:33 BP 127/55 L 11/02/21 14:33 Pulse Ox 98 11/02/21 14:33 BMI result Body Mass Index 23.7 Const: General: healthy appearing Nutritional Appearance: average body habi tus Orientation/consciousness: oriented to person and patient oriented x3 Limitations: no limitations HENMT: Head: Yes normal to inspection Ears: external ears normal General nose exam: Normal external nose present Mouth: Normal oral and palatal mucosa present and oropharynx normal Throat: Yes posterior oropharynx normal Eyes: General: appearance normal, both eyes and all related structures Neck: Other: supple Neck: Yes normal visual inspection Chest: Chest palpation & inspection: normal inspection of the chest Resp: Auscultation: clear to auscultation bilaterally Cardio: Other: 3/6 faith with loud click Jugular venous distension: no JVD Rate: regular rate Rhythm: regular rhythm GI: Inspection: Yes normal to inspection Palpation (GI): Soft to palpation, nontender and No hepatosplenomegaly present Auscultation: normal bowel sounds : General: Yes no CVA tenderness Back/Spine/Pelvis: Back: no CVA tenderness Skin: General skin exam: no rashes or lesions noted Neuro: General: oriented to person and patient oriented x3 Cranial nerves: Yes CN's II-XII intact bilaterally Motor exam (neuro): 5/5 motor strength present throughout Sensory Exam: No Sensory deficit (Neuro) Extrem: General: Yes normal to inspection Psych: Appearance: grossly normal Course Reevaluation(s) Reevaluation #1: Patient with COVID, RUL pneumonia, anemia with negative heme on rectal exam, positive troponin will admit Time: 12:45 Reevaluation #2: I spent 40 minutes of critical care, with interventions, assessments, speaking to patient, consultants, and family. Time: 12:52 MDM - SOB/Dyspnea Lab Data Result diagrams: 11/02/21 10:33 11/02/21 10:33 Labs: Lab Results 11/02/21 11/02/21 11/02/21 Range/Units 10:25 10:33 10:33 WBC 6.7 (4.8-10.8) X10*3/uL RBC 3.05 L (4.60-5.80) X10*6/uL Hgb 9.5 L (14.0-18.0) g/dl Hct 29.0 L (42.0-52.0) % MCV 95.1 (80.0-98.0) fL MCH 31.1 (27.0-33.0) pg MCHC 32.8 (31.0-36.0) g/dl RDW 20.0 H (11.0-16.0) % Plt Count 108 L (160-400) X10*3/uL MPV 10.8 (9.4-12.4) fL Immature Gran % (Auto) 0.5 H (0.0-0.4) % Neut % (Auto) 47.6 (45-73) % Lymph % (Auto) 16.4 L (20-40) % [place] % (Auto) 32.0 H (2-11) % Eos % (Auto) 3.2 (0-4) % Baso % (Auto) 0.3 (0-2) % Lymph # (Auto) 1.1 L (1.2-4.9) X10*3/uL [place] # (Auto) 2.1 H (0.1-1.2) X10*3/uL Eos # (Auto) 0.2 (0.0-0.4) X10*3/uL Baso # (Auto) 0.0 (0.0-0.2) X10*3/uL Abs Immat Gran (auto) 0.03 (0.00-0.03) X10*3/uL Absolute Neuts (auto) 3.2 (2.0-8.3) x10*3/uL Absolute Nucleated RBC 0.020 H (0.0-0.012) X10*3/uL Nucleated RBC % (auto) 0.3 H (0.0-0.2) /100WBC Smear Tech's Comments VERIFIED PT (9.9-13.0) SEC INR (0.9-1.1) APTT (24.1-38.0) SEC Sodium 136 (135-145) mmol/L Potassium 4.0 (3.3-5.1) mmol/L Chloride 99 (96-108) mmol/L Carbon Dioxide 28 (22-29) mmol/L Anion Gap 13 (12-20) BUN 15 (9-16) mg/dL Creatinine 0.87 (0.5-1.4) mg/dL Estim Creat Clear Calc 70.1 Estimated GFR > 60 Random Glucose 115 (60-115) mg/dL Calcium 8.3 L D (8.4-10.2) mg/dL Total Bilirubin (0.0-1.0) mg/dL Direct Bilirubin (0.0-0.5) mg/dL AST (5-37) U/L ALT (0-40) U/L Alkaline Phosphatase (39-117) U/L Troponin I High Sens (<3.5-35.0) ng/L Total Protein (6.5-8.0) g/dL Albumin (3.5-5.0) g/dL Urine Color Urine Appearance Urine pH (5.0-8.0) Ur Specific [place] (1.005-1.025) Urine Protein (NEG-TRACE) MG/DL Urine Glucose (UA) (NEG) MG/DL Urine Ketones (NEG) MG/DL Urine Blood (NEG) Urine Nitrite (NEG) Ur Leukocyte Esterase (NEG) Urine RBC (0) /HPF Urine WBC (0-4) /HPF Ur Squamous Epith Cells /LPF Ur Renal Epithelial Cell /LPF Urine Bacteria /LPF Granular Casts /LPF Influenza Type A (PCR) NEGATIVE (Negative) Influenza Type B (PCR) NEGATIVE (Negative) RSV RNA Qual (PCR) NEGATIVE (Negative) SARS-CoV-2 RNA (RT-PCR) POSITIVE A (Negative) 11/02/21 11/02/21 11/02/21 Range/Units 10:33 10:33 12:43 WBC (4.8-10.8) X10*3/uL RBC (4.60-5.80) X10*6/uL Hgb (14.0-18.0) g/dl Hct (42.0-52.0) % MCV (80.0-98.0) fL MCH (27.0-33.0) pg MCHC (31.0-36.0) g/dl RDW (11.0-16.0) % Plt Count (160-400) X10*3/uL MPV (9.4-12.4) fL Immature Gran % (Auto) (0.0-0.4) % Neut % (Auto) (45-73) % Lymph % (Auto) (20-40) % [place] % (Auto) (2-11) % Eos % (Auto) (0-4) % Baso % (Auto) (0-2) % Lymph # (Auto) (1.2-4.9) X10*3/uL [place] # (Auto) (0.1-1.2) X10*3/uL Eos # (Auto) (0.0-0.4) X10*3/uL Baso # (Auto) (0.0-0.2) X10*3/uL Abs Immat Gran (auto) (0.00-0.03) X10*3/uL Absolute Neuts (auto) (2.0-8.3) x10*3/uL Absolute Nucleated RBC (0.0-0.012) X10*3/uL Nucleated RBC % (auto) (0.0-0.2) /100WBC Smear Tech's Comments PT 32.8 H (9.9-13.0) SEC INR 2.8 H (0.9-1.1) APTT 39.7 H (24.1-38.0) SEC Sodium (135-145) mmol/L Potassium (3.3-5.1) mmol/L Chloride (96-108) mmol/L Carbon Dioxide (22-29) mmol/L Anion Gap (12-20) BUN (9-16) mg/dL Creatinine (0.5-1.4) mg/dL Estim Creat Clear Calc Estimated GFR Random Glucose (60-115) mg/dL Calcium (8.4-10.2) mg/dL Total Bilirubin 1.0 (0.0-1.0) mg/dL Direct Bilirubin 0.5 (0.0-0.5) mg/dL AST 31 (5-37) U/L ALT 17 (0-40) U/L Alkaline Phosphatase 56 (39-117) U/L Troponin I High Sens 54.7 H (<3.5-35.0) ng/L Total Protein 6.5 (6.5-8.0) g/dL Albumin 3.7 (3.5-5.0) g/dL Urine Color Urine Appearance Urine pH (5.0-8.0) Ur Specific [place] (1.005-1.025) Urine Protein (NEG-TRACE) MG/DL Urine Glucose (UA) (NEG) MG/DL Urine Ketones (NEG) MG/DL Urine Blood (NEG) Urine Nitrite (NEG) Ur Leukocyte Esterase (NEG) Urine RBC (0) /HPF Urine WBC (0-4) /HPF Ur Squamous Epith Cells /LPF Ur Renal Epithelial Cell /LPF Urine Bacteria /LPF Granular Casts /LPF Influenza Type A (PCR) (Negative) Influenza Type B (PCR) (Negative) RSV RNA Qual (PCR) (Negative) SARS-CoV-2 RNA (RT-PCR) (Negative) 11/02/21 11/02/21 Range/Units 13:17 13:17 WBC (4.8-10.8) X10*3/uL RBC (4.60-5.80) X10*6/uL Hgb (14.0-18.0) g/dl Hct (42.0-52.0) % MCV (80.0-98.0) fL MCH (27.0-33.0) pg MCHC (31.0-36.0) g/dl RDW (11.0-16.0) % Plt Count (160-400) X10*3/uL MPV (9.4-12.4) fL Immature Gran % (Auto) (0.0-0.4) % Neut % (Auto) (45-73) % Lymph % (Auto) (20-40) % [place] % (Auto) (2-11) % Eos % (Auto) (0-4) % Baso % (Auto) (0-2) % Lymph # (Auto) (1.2-4.9) X10*3/uL [place] # (Auto) (0.1-1.2) X10*3/uL Eos # (Auto) (0.0-0.4) X10*3/uL Baso # (Auto) (0.0-0.2) X10*3/uL Abs Immat Gran (auto) (0.00-0.03) X10*3/uL Absolute Neuts (auto) (2.0-8.3) x10*3/uL Absolute Nucleated RBC (0.0-0.012) X10*3/uL Nucleated RBC % (auto) (0.0-0.2) /100WBC Smear Tech's Comments PT (9.9-13.0) SEC INR (0.9-1.1) APTT (24.1-38.0) SEC Sodium (135-145) mmol/L Potassium (3.3-5.1) mmol/L Chloride (96-108) mmol/L Carbon Dioxide (22-29) mmol/L Anion Gap (12-20) BUN (9-16) mg/dL Creatinine (0.5-1.4) mg/dL Estim Creat Clear Calc Estimated GFR Random Glucose (60-115) mg/dL Calcium (8.4-10.2) mg/dL Total Bilirubin (0.0-1.0) mg/dL Direct Bilirubin (0.0-0.5) mg/dL AST (5-37) U/L ALT (0-40) U/L Alkaline Phosphatase (39-117) U/L Troponin I High Sens 58.6 H (<3.5-35.0) ng/L Total Protein (6.5-8.0) g/dL Albumin (3.5-5.0) g/dL Urine Color YELLOW Urine Appearance CLEAR Urine pH 6.0 (5.0-8.0) Ur Specific [place] 1.025 (1.005-1.025) Urine Protein 2+ H (NEG-TRACE) MG/DL Urine Glucose (UA) NEG (NEG) MG/DL Urine Ketones NEG (NEG) MG/DL Urine Blood 1+ H (NEG) Urine Nitrite NEG (NEG) Ur Leukocyte Esterase NEG (NEG) Urine RBC 1-4 (0) /HPF Urine WBC 0 (0-4) /HPF Ur Squamous Epith Cells 2+ /LPF Ur Renal Epithelial Cell 1+ /LPF Urine Bacteria NONE /LPF Granular Casts 0-2 /LPF Influenza Type A (PCR) (Negative) Influenza Type B (PCR) (Negative) RSV RNA Qual (PCR) (Negative) SARS-CoV-2 RNA (RT-PCR) (Negative) ECG Data Attestation: I personally reviewed and interpreted this ECG as follows: Interpretation: Atrial fibrillation lateral twave changes Critical Care Time Critical Care Time Attestation: I spent 40 minutes of critical care, with interventions, assessments, speaking to patient, consultants, and family. Discharge Plan Discharge Clinical Impression: COVID-19, Elevated troponin Pneumonia Qualifiers: Pneumonia type: due to unspecified organism Laterality: right Lung location: upper lobe of lung Qualified Code(s): J18.9 - Pneumonia, unspecified organism Anemia Qualifiers: Anemia type: unspecified type Qualified Code(s): D64.9 - Anemia, unspecified Patient Disposition: Admitted As Inpatient
--- NOTE | 2021-11-02 10:02 | ECG_ITS ---
Test Reason : CHEST PAIN Blood Pressure : / mmHG Vent. Rate : 075 BPM Atrial Rate : 340 BPM P-R Int : 000 ms QRS Dur : 112 ms QT Int : 384 ms P-R-T Axes : 000 -40 089 degrees QTc Int : 428 ms Atrial fibrillation Left axis deviation Nonspecific ST and T wave abnormality Abnormal ECG When compared with ECG of 02-NOV-2021 09:42, No significant changes seen Referred By: Walt Davis Electronically Signed By:MARYSE BRAR
[2021-11-02] MEDS: 0.9 % Sodium Chloride 1,000 ML 500 ML IVCONT (10:31)
[2021-11-02 10:46] LABS: Basophils Percent Auto 0.3 % (0-2); Eosinophils Absolute Auto 0.2 X10*3/uL (0.0-0.4); Eosinophils Percent Auto 3.2 % (0-4); Hemoglobin 9.5 g/dl (14.0-18.0); Imm Gran Abs Auto 0.03 X10*3/uL (0.00-0.03); Imm Gran Pct Auto 0.5 % (0.0-0.4); Lymphocytes Absolute Auto 1.1 X10*3/uL (1.2-4.9); Lymphocytes Percent Auto 16.4 % (20-40); MANUAL DIFF FLAG SCAN; Mean Corpuscular HGB Conc 32.8 g/dl (31.0-36.0); Mean Corpuscular Hemoglobin 31.1 pg (27.0-33.0); Mean Corpuscular Volume 95.1 fL (80.0-98.0); Mean Platelet Volume 10.8 fL (9.4-12.4); Monocytes Absolute Auto 2.1 X10*3/uL (0.1-1.2); NRBC Pct Auto 0.3 /100WBC (0.0-0.2); Neutrophils Absolute Auto 3.2 x10*3/uL (2.0-8.3); Neutrophils Percent Auto 47.6 % (45-73); Platelet Count 108 X10*3/uL (160-400); Red Blood Count 3.05 X10*6/uL (4.60-5.80); SCAN SMEAR FLAG 1; White Blood Count 6.7 X10*3/uL (4.8-10.8)
[2021-11-02] MEDS: ondansetron HCL 4 MG/2 ML VIAL IVPUSH (10:47)
[2021-11-02 10:54] LABS: INTERNATIONAL NORM RATIO 2.8 (0.9-1.1); Prothrombin Time 32.8 SEC (9.9-13.0)
[2021-11-02 11:02] LABS: Anion Gap 13 (12-20); Blood Urea Nitrogen 15 mg/dL (9-16); Calcium 8.3 mg/dL (8.4-10.2); Carbon Dioxide 28 mmol/L (22-29); Chloride 99 mmol/L (96-108); Creatinine Clr Calc Pharmacy 70.1; Estimated Glomerular Filt Rate > 60; Glucose Random 115 mg/dL (60-115); Sodium 136 mmol/L (135-145)
[2021-11-02 11:06] LABS: SLIDE REVIEW VERIFIED
[2021-11-02 11:10] LABS: Troponin-I High Sensitivity 54.7 ng/L (<3.5-35.0)
[2021-11-02 11:16] LABS: Influenza A PCR NEGATIVE (Negative); Influenza B PCR NEGATIVE (Negative); Resp Syncy Virus RNA Qual PCR NEGATIVE (Negative); SARS COV2 PCR INHOUSE POSITIVE (Negative)
--- NOTE | 2021-11-02 11:18 | PC.NURSE ---
pt down to 88% on RA and increased work of breathing after taking a sip of water. no cough or change of voice. Pt states he feels this short of breath whenever he does any activity. Pt placed on 2L NC. aware.
[2021-11-02 12:16] LABS: Partial Thromboplastin Time 39.7 SEC (24.1-38.0)
[2021-11-02] MEDS: dexAMETHasone sod phosphate 4 MG/ML VIAL 6 MG IVPUSH (12:44)
[2021-11-02] MEDS: cefTRIAXone sodium 1 GM in 0.9 % Sodium Chloride 50 ML IV (12:44)
[2021-11-02] MEDS: Azithromycin 500 MG in 0.9 % Sodium Chloride 250 ML 125 MG IV (13:17)
[2021-11-02 13:22] LABS: Alanine Aminotransferase 17 U/L (0-40); Albumin Level 3.7 g/dL (3.5-5.0); Alkaline Phosphatase 56 U/L (39-117); Aspartate Amino Transferase 31 U/L (5-37); Bilirubin Direct 0.5 mg/dL (0.0-0.5); Total Protein 6.5 g/dL (6.5-8.0)
[2021-11-02 13:28] LABS: Appearance Urine CLEAR; Color Urine YELLOW; Glucose Urine UA NEG (NEG); Leukocyte Esterase Urine NEG (NEG); Nitrite Urine NEG (NEG); Specific Gravity - Urine 1.025 (1.005-1.025); UACC Culture Trigger NO; Urine Blood 1+ (NEG); Urine Ketones NEG (NEG); Urine Protein 2+ MG/DL (NEG-TRACE)
[2021-11-02 13:36] LABS: Granular Casts Urine 0-2 /LPF; Renal Epithelial Cells Urine 1+ /LPF; Squamous Epithelial Cell Urine 2+ /LPF; WBC Urine 0 /HPF (0-4)
[2021-11-02 13:48] LABS: Troponin-I High Sensitivity 58.6 ng/L (<3.5-35.0)
--- NOTE | 2021-11-02 13:59 | PHA.MEDREC ---
Pharmacy Consult ? Medication Reconciliation Pharmacy has completed the medication reconciliation. Patient is unsure if he is taking ativan. Reports that he completed his ABX. Nancy Cleaning, LiannaD
--- NOTE | 2021-11-02 16:25 | P.HPHOSP_ITS ---
History of Present Illness Date of Service: 11/02/21 Chief Complaint: Difficulty breathing, weakness An 85 years old male with PMH of AFib on warfarin, AVR, HTN, BPH among others who presented to the hospital complaining of worsening shortness of breath and weakness for the last 3 weeks. The patient reported that he was evaluated for this problem in the emergency 10 days ago prescribed short course of amoxicillin for diagnosis of bronchitis. Did not feel any better but actually felt more shortness of breath and chills associated with subjective fever as he did not check it at home with increased dyspnea on exertion, cough which was dry and became productive yesterday. This morning he went to see his primary care Dr. Durán who brought him to the emergency for evaluation. CXR showed right upper lobe infiltrate. He tested positive for COVID-19 infection. D saturated upon ambulation to 80s. admitted for further evaluation and treatment. Review of Systems Review of Systems: Reporting subjective fever, chills at and increased generalized weakness No chest pain, palpitation Dyspnea on exertion, cough and shortness of breath No abdominal pain, nausea or vomiting No urinary symptoms No any rash or wounds PMFSH Medical History Atrial fibrillation HTN (hypertension) Pertinent family history: Hypertension in father. Surgical History Aortic valve replaced History of cholecystectomy Social History Alcohol intake: current Alcohol intake frequency: 0-2 drinks per day Advance Directives: No Advance Directives Information Provided: No service: Yes Current occupational status: retired Meds Allergies Allergy/AdvReac Type Severity Reaction Status Date / Time adhesive [ADHESIVE] Allergy Intermediate RASH, Verified 07/19/21 12:55 BLISTERS atenolol [Atenolol] Allergy Mild RASH Verified 07/19/21 12:55 sotalol [Sotalol] Allergy Mild RASH Verified 07/19/21 12:55 atorvastatin [From Lipitor] AdvReac Mild SEVERE Verified 07/19/21 12:55 ACHES AND PAINS Active Medications: Current Medications Acetaminophen (Acetaminophen 325 Mg Tablet) 650 mg PO Q6H PRN PRN Reason: Pain, Mild (Pain Scale 1-3) Benzonatate (Benzonatate 100 Mg Capsule) 100 mg PO TID [facility] Celecoxib (Celecoxib 200 Mg Capsule) 200 mg PO DAILY [facility] Dexamethasone Sodium Phosphate (Dexamethasone Sod Phosphate 4 Mg/Ml Vial) 6 mg IVPUSH DAILY [facility] Doxazosin Mesylate (Doxazosin Mesylate 2 Mg Tablet) 4 mg PO DAILY [facility]; Protocol Finasteride (Finasteride 5 Mg Tablet) 5 mg PO BEDTIME [facility] Furosemide (Furosemide 40 Mg Tablet) 80 mg PO DAILY [facility]; Protocol Guaifenesin (Guaifenesin La 600 Mg Tab.Er.12h) 600 mg PO BID [facility] Azithromycin 500 mg/ Sodium (Chloride) 250 mls @ 125 mls/hr IV Q24H [facility] Ceftriaxone Sodium 1 gm/ (Sodium Chloride) 50 mls @ 100 mls/hr IV Q24H [facility] Lisinopril (Lisinopril 20 Mg Tablet) 20 mg PO DAILY [facility]; Protocol Metoprolol Tartrate (Metoprolol Tartrate 100 Mg Tablet) 100 mg PO BID [facility]; Protocol Ondansetron HCl (Ondansetron Hcl 4 Mg/2 Ml Vial) 4 mg IVPUSH Q8H PRN PRN Reason: Nausea and Vomiting Pharmacy Consult (Consult Rx Perform Med Rec) 1 each MISCELLANE ONCE PRN PRN Reason: Consult order Potassium Chloride (Potassium Chloride Er 20 Meq Tab.Er.Prt) 20 meq PO DAILY [facility] Sodium Chloride (0.9 % Sodium Chloride Flush 3 Ml Syringe) 3 ml IVFLUSH QSHIFT [facility] Spironolactone (Spironolactone 25 Mg Tablet) 25 mg PO DAILY [facility]; Protocol Warfarin Sodium (Warfarin Sodium 4 Mg Tablet) 4 mg PO DAILY@1800 [facility] Home Medications Medication Instructions Recorded Confirmed Last Taken Type acebutolol 200 mg capsule 200 mg PO BEDTIME 04/17/21 11/02/21 04/16/21 History acebutolol 200 mg capsule 400 mg PO DAILY 04/17/21 11/02/21 Unknown History doxazosin 4 mg tablet 1 tab PO DAILY 04/17/21 11/02/21 Unknown History finasteride 5 mg tablet 5 mg PO BEDTIME 04/17/21 11/02/21 Unknown History furosemide 80 mg tablet 1 tab PO QAM 04/17/21 11/02/21 Unknown History lisinopril 20 mg tablet 20 mg PO DAILY 04/17/21 11/02/21 Unknown History rosuvastatin 40 mg tablet 1 tab PO DAILY 04/17/21 11/02/21 Unknown History potassium chloride 20 mEq 20 meq PO DAILY 07/19/21 11/02/21 Unknown History tablet,extended release(part/cryst) (Klor-Con M) spironolactone 25 mg tablet 25 mg PO QAM 07/19/21 11/02/21 Unknown History celecoxib 200 mg capsule 1 cap PO DAILY 11/02/21 11/02/21 Unknown History warfarin 4 mg tablet 4 mg PO DAILY@1800 11/02/21 11/02/21 Unknown History Physical Exam Vital Signs and Narrative: Vital Signs: Last Vital Signs Temp 100.3 F 11/02/21 14:33 Pulse 76 11/02/21 14:33 Resp 23 H 11/02/21 14:33 BP 127/55 L 11/02/21 14:33 Pulse Ox 98 11/02/21 14:33 BMI result Body Mass Index 23.7 Const: Other: Constitutional : Alert, oriented, not in distress Neck : Normal inspection, Supple Cardiovascular : RRR, S1 S2, no lower extremity edema Respiratory : Decreased air entry of further right-sided upper lobe, even lower lobe as well, very fine crackles can. In the upper area, no wheezes. Gastrointestinal: soft, lax, Normal bowel sounds, Non tender Skin : Warm, Dry Neurological : Alert & oriented x3, No focal deficit Results Labs CBC and Chem 7: 11/02/21 10:33 11/02/21 10:33 Labs: Laboratory Results - last 24 hr 11/02/21 11/02/21 11/02/21 10:25 10:33 10:33 MCV 95.1 MCH 31.1 MCHC 32.8 RDW 20.0 H Plt Count 108 L MPV 10.8 Immature Gran % (Auto) 0.5 H Neut % (Auto) 47.6 Lymph % (Auto) 16.4 L [place] % (Auto) 32.0 H Eos % (Auto) 3.2 Baso % (Auto) 0.3 Lymph # (Auto) 1.1 L [place] # (Auto) 2.1 H Eos # (Auto) 0.2 Baso # (Auto) 0.0 Abs Immat Gran (auto) 0.03 Absolute Neuts (auto) 3.2 Absolute Nucleated RBC 0.020 H Nucleated RBC % (auto) 0.3 H Smear Tech's Comments VERIFIED PT INR APTT Anion Gap 13 Estim Creat Clear Calc 70.1 Estimated GFR > 60 Random Glucose 115 Calcium 8.3 L D Total Bilirubin Direct Bilirubin AST ALT Alkaline Phosphatase Troponin I High Sens Total Protein Albumin Urine Color Urine Appearance Urine pH Ur Specific [place] Urine Protein Urine Glucose (UA) Urine Ketones Urine Blood Urine Nitrite Ur Leukocyte Esterase Urine RBC Urine WBC Ur Squamous Epith Cells Ur Renal Epithelial Cell Urine Bacteria Granular Casts Influenza Type A (PCR) NEGATIVE Influenza Type B (PCR) NEGATIVE RSV RNA Qual (PCR) NEGATIVE SARS-CoV-2 RNA (RT-PCR) POSITIVE A 11/02/21 11/02/21 11/02/21 10:33 10:33 12:43 MCV MCH MCHC RDW Plt Count MPV Immature Gran % (Auto) Neut % (Auto) Lymph % (Auto) [place] % (Auto) Eos % (Auto) Baso % (Auto) Lymph # (Auto) [place] # (Auto) Eos # (Auto) Baso # (Auto) Abs Immat Gran (auto) Absolute Neuts (auto) Absolute Nucleated RBC Nucleated RBC % (auto) Smear Tech's Comments PT 32.8 H INR 2.8 H APTT 39.7 H Anion Gap Estim Creat Clear Calc Estimated GFR Random Glucose Calcium Total Bilirubin 1.0 Direct Bilirubin 0.5 AST 31 ALT 17 Alkaline Phosphatase 56 Troponin I High Sens 54.7 H Total Protein 6.5 Albumin 3.7 Urine Color Urine Appearance Urine pH Ur Specific [place] Urine Protein Urine Glucose (UA) Urine Ketones Urine Blood Urine Nitrite Ur Leukocyte Esterase Urine RBC Urine WBC Ur Squamous Epith Cells Ur Renal Epithelial Cell Urine Bacteria Granular Casts Influenza Type A (PCR) Influenza Type B (PCR) RSV RNA Qual (PCR) SARS-CoV-2 RNA (RT-PCR) 11/02/21 11/02/21 13:17 13:17 MCV MCH MCHC RDW Plt Count MPV Immature Gran % (Auto) Neut % (Auto) Lymph % (Auto) [place] % (Auto) Eos % (Auto) Baso % (Auto) Lymph # (Auto) [place] # (Auto) Eos # (Auto) Baso # (Auto) Abs Immat Gran (auto) Absolute Neuts (auto) Absolute Nucleated RBC Nucleated RBC % (auto) Smear Tech's Comments PT INR APTT Anion Gap Estim Creat Clear Calc Estimated GFR Random Glucose Calcium Total Bilirubin Direct Bilirubin AST ALT Alkaline Phosphatase Troponin I High Sens 58.6 H Total Protein Albumin Urine Color YELLOW Urine Appearance CLEAR Urine pH 6.0 Ur Specific [place] 1.025 Urine Protein 2+ H Urine Glucose (UA) NEG Urine Ketones NEG Urine Blood 1+ H Urine Nitrite NEG Ur Leukocyte Esterase NEG Urine RBC 1-4 Urine WBC 0 Ur Squamous Epith Cells 2+ Ur Renal Epithelial Cell 1+ Urine Bacteria NONE Granular Casts 0-2 Influenza Type A (PCR) Influenza Type B (PCR) RSV RNA Qual (PCR) SARS-CoV-2 RNA (RT-PCR) Imaging Radiologist's Impressions: Impressions Chest X-Ray 11/02/21 11:27 IMPRESSION: Right upper lobe infiltrate. Rest of lungs are clear. Assessment and Plan (1) Pneumonia: Qualifiers: Laterality: right Lung location: upper lobe of lung Pneumonia type: due to unspecified organism Qualified Code(s): J18.9 - Pneumonia, unspecified organism Status: Acute (2) COVID-19: Status: Acute (3) Acute on chronic anemia: Status: Acute (4) Hypoxia: Status: Acute An 85 years old male with PMH of AFib on warfarin, AVR, HTN, BPH among o thers who presented to the hospital complaining of worsening shortness of breath and weakness for the last 3 weeks. Hypoxia on ambulation Secondary to community-acquired pneumonia and COVID-19 infection Use oxygen as needed and wean down as tolerated Community-acquired pneumonia Pending blood cultures CXR showed right upper lobe infiltrate Continue azithromycin and ceftriaxone COVID-19 infection Patient received 2 doses of vaccine Start dexamethasone To get ID evaluation AFib, AVR continue warfarin INR within target To use metoprolol for rate controlled while inpatient DVT PPX Warfarin Goal of care discussed, patient would like to be DNR but give it a trial of intubation if needed. Quality Stroke Does the patient have a stroke diagnosis?: No VTE Prior VTE?: No VTE Risk Level:: Medical - low VTE Device Contraindication: Treatment Not Indicated VTE Drug Contraindication: Treatment Not Indicated
[2021-11-02] MEDS: Benzonatate 100 MG CAPSULE PO ×2 (17:10→21:38)
[2021-11-02] MEDS: guaiFENesin LA 600 MG TAB.ER.12H PO ×2 (17:10→21:39)
[2021-11-02] MEDS: Warfarin Sodium 4 MG TABLET PO (17:10)
[2021-11-02] MEDS: Remdesivir 200 MG in 0.9 % Sodium Chloride 210 ML 105 MG IV (18:06)
[2021-11-02 18:24] LABS: Procalcitonin 0.08 ng/mL
--- NOTE | 2021-11-02 18:29 | PC.NURSE ---
pt tolerating activities on RA at this time. no distress noted.
--- NOTE | 2021-11-02 19:46 | PC.NURSE ---
pt c/o difficulty breathing. 02 sat 96% on room air pt placed on 2L NC with good relief
[2021-11-02] MEDS: Metoprolol Tartrate 100 MG TABLET PO (21:39)
[2021-11-02] MEDS: Finasteride 5 MG TABLET PO (22:35)
[2021-11-02] MEDS: 0.9 % Sodium Chloride Flush 3 ML SYRINGE IVFLUSH (23:55)
[2021-11-03] VITALS (15 sets, daily range): BP systolic 111–153; BP diastolic 55–67; PULSE 60–89; RESP 16–22; TEMP 35.2–39.1; O2SAT 90–98
[2021-11-03] MEDS: Acetaminophen 325 MG TABLET 650 MG PO ×2 (03:01→08:46)
[2021-11-03] MEDS: Metoprolol Tartrate 100 MG TABLET PO ×2 (08:38→20:53)
[2021-11-03] MEDS: Celecoxib 200 MG CAPSULE PO (08:38)
[2021-11-03] MEDS: Furosemide 40 MG TABLET 80 MG PO (08:38)
[2021-11-03] MEDS: guaiFENesin LA 600 MG TAB.ER.12H PO ×2 (08:38→20:54)
[2021-11-03] MEDS: Doxazosin Mesylate 2 MG TABLET 4 MG PO (08:39)
[2021-11-03] MEDS: Spironolactone 25 MG TABLET PO (08:39)
[2021-11-03] MEDS: dexAMETHasone sod phosphate 4 MG/ML VIAL 6 MG IVPUSH (08:40)
[2021-11-03] MEDS: Benzonatate 100 MG CAPSULE PO ×3 (08:40→20:54)
[2021-11-03] MEDS: lisinopriL 20 MG TABLET PO (08:40)
[2021-11-03] MEDS: Potassium Chloride ER 20 MEQ TAB.ER.PRT PO (08:40)
[2021-11-03 08:42] LABS: Hematocrit 28.7 % (42.0-52.0); Mean Corpuscular Volume 94.7 fL (80.0-98.0); Mean Platelet Volume 11.1 fL (9.4-12.4); PLT CLUMP 1; Red Blood Count 3.03 X10*6/uL (4.60-5.80); Red Cell Distribution Width 19.9 % (11.0-16.0)
[2021-11-03 08:44] LABS: Hemoglobin 9.4 g/dl (14.0-18.0); Mean Corpuscular HGB Conc 32.8 g/dl (31.0-36.0); Platelet Count 111 X10*3/uL (160-400); White Blood Count 7.4 X10*3/uL (4.8-10.8)
[2021-11-03 08:47] LABS: INTERNATIONAL NORM RATIO 3.5 (0.9-1.1); Prothrombin Time 40.4 SEC (9.9-13.0)
[2021-11-03 08:49] LABS: Partial Thromboplastin Time 42.1 SEC (24.1-38.0)
[2021-11-03] MEDS: 0.9 % Sodium Chloride Flush 3 ML SYRINGE IVFLUSH ×3 (08:52→20:54)
[2021-11-03 09:14] LABS: Anion Gap 11 (12-20); Blood Urea Nitrogen 16 mg/dL (9-16); Calcium 8.5 mg/dL (8.4-10.2); Carbon Dioxide 29 mmol/L (22-29); Chloride 99 mmol/L (96-108); Creatinine Clr Calc Pharmacy 72.6; Estimated Glomerular Filt Rate > 60; Glucose Random 110 mg/dL (60-115); Potassium 4.1 mmol/L (3.3-5.1); Sodium 135 mmol/L (135-145)
--- NOTE | 2021-11-03 09:59 | HO.PM.IMPN ---
Subjective Subjective Date of Service: 11/03/21 Interval History: the patient was seen and evaluated this morning Laying in bed, feels a little better but still having generalized weakness and feels out of energy Decrease fever and chills Still come complaining of dyspnea No reported other overnight events. Systemic review: Feeling weak and lethargic No chest pain, palpitation Dyspnea with minimal exertion, coughing No abdominal pain, nausea or vomiting No urinary symptoms No any rash or wounds Physical Exam Vital Signs: Vital Signs: Last Vital Signs Temp 102.4 F H 11/03/21 08:41 Pulse 82 11/03/21 08:41 Resp 22 H 11/03/21 08:41 BP 153/62 H 11/03/21 08:41 Pulse Ox 92 11/03/21 08:41 BMI result Body Mass Index 23.7 Const: Other: Constitutional : Alert, oriented, in mild respiratory distress Neck : Normal inspection, Supple Cardiovascular : RRR, S1 S2, no lower extremity edema Respiratory : Decreased air entry of further right-sided upper lobe, even lower lobe as well, very fine crackles can be heared In the upper area, no wheezes. Gastrointestinal: soft, lax, Normal bowel sounds, Non tender Skin : Warm, Dry Neurological : Alert & oriented x3, No focal deficit Objective Data Active Medications Acetaminophen (Acetaminophen 325 Mg Tablet) 650 mg PO Q6H PRN PRN Reason: Pain, Mild (Pain Scale 1-3) Last Admin: 11/03/21 08:46 Dose: 650 mg Documented by: JEFFERSON Benzonatate (Benzonatate 100 Mg Capsule) 100 mg PO TID [facility] Last Admin: 11/03/21 08:40 Dose: 100 mg Documented by: JEFFERSON Celecoxib (Celecoxib 200 Mg Capsule) 200 mg PO DAILY [facility] Last Admin: 11/03/21 08:38 Dose: 200 mg Documented by: JEFFERSON Dexamethasone Sodium Phosphate (Dexamethasone Sod Phosphate 4 Mg/Ml Vial) 6 mg IVPUSH DAILY [facility] Last Admin: 11/03/21 08:40 Dose: 6 mg Documented by: JEFFERSON Doxazosin Mesylate (Doxazosin Mesylate 2 Mg Tablet) 4 mg PO DAILY [facility]; Protocol Last Admin: 11/03/21 08:39 Dose: 4 mg Documented by: JEFFERSON Finasteride (Finasteride 5 Mg Tablet) 5 mg PO BEDTIME [facility] Last Admin: 11/02/21 22:35 Dose: 5 mg Documented by: CHRISTINA Furosemide (Furosemide 40 Mg Tablet) 80 mg PO DAILY [facility]; Protocol Last Admin: 11/03/21 08:38 Dose: 80 mg Documented by: JEFFERSON Guaifenesin (Guaifenesin La 600 Mg Tab.Er.12h) 600 mg PO BID [facility] Last Admin: 11/03/21 08:38 Dose: 600 mg Documented by: JEFFERSON Azithromycin 500 mg/ Sodium (Chloride) 250 mls @ 125 mls/hr IV Q24H [facility] Ceftriaxone Sodium 1 gm/ (Sodium Chloride) 50 mls @ 100 mls/hr IV Q24H [facility] Remdesivir 100 mg/ Sodium (Chloride) 230 mls @ 115 mls/hr IV Q24H [facility] Stop: 11/06/21 19:59 Lisinopril (Lisinopril 20 Mg Tablet) 20 mg PO DAILY [facility]; Protocol Last Admin: 11/03/21 08:40 Dose: 20 mg Documented by: JEFFERSON Metoprolol Tartrate (Metoprolol Tartrate 100 Mg Tablet) 100 mg PO BID [facility]; Protocol Last Admin: 11/03/21 08:38 Dose: 100 mg Documented by: JEFFESRON Ondansetron HCl (Ondansetron Hcl 4 Mg/2 Ml Vial) 4 mg IVPUSH Q8H PRN PRN Reason: Nausea and Vomiting Pharmacy Consult (Consult Rx Perform Med Rec) 1 each MISCELLANE ONCE PRN PRN Reason: Consult order Potassium Chloride (Potassium Chloride Er 20 Meq Tab.Er.Prt) 20 meq PO DAILY [facility] Last Admin: 11/03/21 08:40 Dose: 20 meq Documented by: JEFEFRSON Sodium Chloride (0.9 % Sodium Chloride Flush 3 Ml Syringe) 3 ml IVFLUSH QSHIFT [facility] Last Admin: 11/03/21 08:52 Dose: 3 ml Documented by: JEFFERSON Spironolactone (Spironolactone 25 Mg Tablet) 25 mg PO DAILY [facility]; Protocol Last Admin: 11/03/21 08:39 Dose: 25 mg Documented by: JEFFERSON Warfarin Sodium (Warfarin Sodium 4 Mg Tablet) 4 mg PO DAILY@1800 [facility] Last Admin: 11/02/21 17:10 Dose: 4 mg Documented by: NEFTALY Labs CBC & Chem 7: 11/03/21 08:27 11/03/21 08:27 Labs: Laboratory Results - last 24 hr 11/02/21 11/02/21 11/02/21 10:25 10:33 10:33 MCV 95.1 MCH 31.1 MCHC 32.8 RDW 20.0 H Plt Count 108 L MPV 10.8 Immature Gran % (Auto) 0.5 H Neut % (Auto) 47.6 Lymph % (Auto) 16.4 L [place] % (Auto) 32.0 H Eos % (Auto) 3.2 Baso % (Auto) 0.3 Lymph # (Auto) 1.1 L [place] # (Auto) 2.1 H Eos # (Auto) 0.2 Baso # (Auto) 0.0 Abs Immat Gran (auto) 0.03 Absolute Neuts (auto) 3.2 Absolute Nucleated RBC 0.020 H Nucleated RBC % (auto) 0.3 H Smear Tech's Comments VERIFIED PT INR APTT Anion Gap 13 Estim Creat Clear Calc 70.1 Estimated GFR > 60 Random Glucose 115 Calcium 8.3 L D Total Bilirubin Direct Bilirubin AST ALT Alkaline Phosphatase Troponin I High Sens Total Protein Albumin Procalcitonin Urine Color Urine Appearance Urine pH Ur Specific [place] Urine Protein Urine Glucose (UA) Urine Ketones Urine Blood Urine Nitrite Ur Leukocyte Esterase Urine RBC Urine WBC Ur Squamous Epith Cells Ur Renal Epithelial Cell Urine Bacteria Granular Casts Influenza Type A (PCR) NEGATIVE Influenza Type B (PCR) NEGATIVE RSV RNA Qual (PCR) NEGATIVE SARS-CoV-2 RNA (RT-PCR) POSITIVE A 11/02/21 11/02/21 11/02/21 10:33 10:33 12:43 MCV MCH MCHC RDW Plt Count MPV Immature Gran % (Auto) Neut % (Auto) Lymph % (Auto) [place] % (Auto) Eos % (Auto) Baso % (Auto) Lymph # (Auto) [place] # (Auto) Eos # (Auto) Baso # (Auto) Abs Immat Gran (auto) Absolute Neuts (auto) Absolute Nucleated RBC Nucleated RBC % (auto) Smear Tech's Comments PT 32.8 H INR 2.8 H APTT 39.7 H Anion Gap Estim Creat Clear Calc Estimated GFR Random Glucose Calcium Total Bilirubin 1.0 Direct Bilirubin 0.5 AST 31 ALT 17 Alkaline Phosphatase 56 Troponin I High Sens 54.7 H Total Protein 6.5 Albumin 3.7 Procalcitonin Urine Color Urine Appearance Urine pH Ur Specific [place] Urine Protein Urine Glucose (UA) Urine Ketones Urine Blood Urine Nitrite Ur Leukocyte Esterase Urine RBC Urine WBC Ur Squamous Epith Cells Ur Renal Epithelial Cell Urine Bacteria Granular Casts Influenza Type A (PCR) Influenza Type B (PCR) RSV RNA Qual (PCR) SARS-CoV-2 RNA (RT-PCR) 11/02/21 11/02/21 11/02/21 12:43 13:17 13:17 MCV MCH MCHC RDW Plt Count MPV Immature Gran % (Auto) Neut % (Auto) Lymph % (Auto) [place] % (Auto) Eos % (Auto) Baso % (Auto) Lymph # (Auto) [place] # (Auto) Eos # (Auto) Baso # (Auto) Abs Immat Gran (auto) Absolute Neuts (auto) Absolute Nucleated RBC Nucleated RBC % (auto) Smear Tech's Comments PT INR APTT Anion Gap Estim Creat Clear Calc Estimated GFR Random Glucose Calcium Total Bilirubin Direct Bilirubin AST ALT Alkaline Phosphatase Troponin I High Sens 58.6 H Total Protein Albumin Procalcitonin 0.08 Urine Color YELLOW Urine Appearance CLEAR Urine pH 6.0 Ur Specific [place] 1.025 Urine Protein 2+ H Urine Glucose (UA) NEG Urine Ketones NEG Urine Blood 1+ H Urine Nitrite NEG Ur Leukocyte Esterase NEG Urine RBC 1-4 Urine WBC 0 Ur Squamous Epith Cells 2+ Ur Renal Epithelial Cell 1+ Urine Bacteria NONE Granular Casts 0-2 Influenza Type A (PCR) Influenza Type B (PCR) RSV RNA Qual (PCR) SARS-CoV-2 RNA (RT-PCR) 11/03/21 11/03/21 11/03/21 08:27 08:27 08:27 MCV 94.7 MCH 31.0 MCHC 32.8 RDW 19.9 H Plt Count 111 L MPV 11.1 Immature Gran % (Auto) Neut % (Auto) Lymph % (Auto) [place] % (Auto) Eos % (Auto) Baso % (Auto) Lymph # (Auto) [place] # (Auto) Eos # (Auto) Baso # (Auto) Abs Immat Gran (auto) Absolute Neuts (auto) Absolute Nucleated RBC 0.000 Nucleated RBC % (auto) 0.0 Smear Tech's Comments PT 40.4 H INR 3.5 H APTT 42.1 H Anion Gap 11 L Estim Creat Clear Calc 72.6 Estimated GFR > 60 Random Glucose 110 Calcium 8.5 Total Bilirubin Direct Bilirubin AST ALT Alkaline Phosphatase Troponin I High Sens Total Protein Albumin Procalcitonin Urine Color Urine Appearance Urine pH Ur Specific [place] Urine Protein Urine Glucose (UA) Urine Ketones Urine Blood Urine Nitrite Ur Leukocyte Esterase Urine RBC Urine WBC Ur Squamous Epith Cells Ur Renal Epithelial Cell Urine Bacteria Granular Casts Influenza Type A (PCR) Influenza Type B (PCR) RSV RNA Qual (PCR) SARS-CoV-2 RNA (RT-PCR) Assessment and Plan (1) Hypoxia: Status: Acute (2) Acute on chronic anemia: Status: Acute (3) Pneumonia: Status: Acute (4) COVID-19: Status: Acute Assessment and Plan: An 85 years old male with PMH of AFib on warfarin, AVR, HTN, BPH among others who presented to the hospital complaining of worsening shortness of breath and weakness for the last 3 weeks. Hypoxia on ambulation Improved Secondary to community-acquired pneumonia and COVID-19 infection Use oxygen as needed and wean down as tolerated Community-acquired pneumonia Still spiking fevers Pending blood cultures CXR showed right upper lobe infiltrate Continue azithromycin Change ceftriaxone with Zosyn COVID-19 infection Patient received 2 doses of vaccine Continue dexamethasone daily 2 Pending ID evaluation AFib, AVR Supratherapeutic INR continue warfarin INR 3.5, to hold today To use metoprolol for rate controlled while inpatient DVT PPX Warfarin Goal of care discussed, patient would like to be DNR but give it a trial of intubation if needed. Quality Stroke Does the patient have a stroke diagnosis?: No VTE Prior VTE?: No VTE Risk Level:: Medical - low VTE Device Contraindication: Treatment Not Indicated VTE Drug Contraindication: Treatment Not Indicated
[2021-11-03] MEDS: Piperacillin Sodium/Tazobactam 3.375 GM in 0.9 % Sodium Chloride 50 ML IV ×2 (10:27→16:02)
--- NOTE | 2021-11-03 11:53 | MHC.CM.PN ---
Patient is Covid positive; CM spoke with /HCP/Jennifer @ [phone] and addressed IMM with her (original to be mailed out certified letter to her and a copy placed on the chart). Patient lives in a house with his and had no services nor DME RESIDENTIAL SPECIALIST. Home is the goal for dc and CM has initiated and will follow for dc planning. PCP is DR. Milton Durán.
[2021-11-03] MEDS: Azithromycin 500 MG in 0.9 % Sodium Chloride 250 ML 125 MG IV (13:39)
[2021-11-03] MEDS: Remdesivir 100 MG in 0.9 % Sodium Chloride 230 ML 115 MG IV (16:47)
[2021-11-03] MEDS: Finasteride 5 MG TABLET PO (20:54)
[2021-11-04] VITALS (8 sets, daily range): BP systolic 115–165; BP diastolic 54–77; PULSE 70–86; RESP 18–20; TEMP 36.2–38.3; O2SAT 91–97
[2021-11-04 07:12] LABS: Hematocrit 28.8 % (42.0-52.0); Hemoglobin 9.4 g/dl (14.0-18.0); Mean Corpuscular HGB Conc 32.6 g/dl (31.0-36.0); Mean Corpuscular Hemoglobin 30.6 pg (27.0-33.0); Mean Corpuscular Volume 93.8 fL (80.0-98.0); Mean Platelet Volume 12.1 fL (9.4-12.4); Platelet Count 118 X10*3/uL (160-400); Red Blood Count 3.07 X10*6/uL (4.60-5.80); Red Cell Distribution Width 20.2 % (11.0-16.0); White Blood Count 6.1 X10*3/uL (4.8-10.8)
[2021-11-04 07:22] LABS: INTERNATIONAL NORM RATIO 3.5 (0.9-1.1); Prothrombin Time 41.1 SEC (9.9-13.0)
[2021-11-04 07:25] LABS: Anion Gap 11 (12-20); Blood Urea Nitrogen 23 mg/dL (9-16); Calcium 8.7 mg/dL (8.4-10.2); Carbon Dioxide 29 mmol/L (22-29); Chloride 99 mmol/L (96-108); Creatinine Clr Calc Pharmacy 75.3; Estimated Glomerular Filt Rate > 60; Glucose Random 106 mg/dL (60-115); Sodium 135 mmol/L (135-145)
[2021-11-04] MEDS: Benzonatate 100 MG CAPSULE PO ×3 (07:40→20:31)
[2021-11-04] MEDS: guaiFENesin LA 600 MG TAB.ER.12H PO ×2 (07:40→20:31)
[2021-11-04] MEDS: dexAMETHasone sod phosphate 4 MG/ML VIAL 6 MG IVPUSH (07:40)
[2021-11-04] MEDS: Acetaminophen 325 MG TABLET 650 MG PO (07:40)
[2021-11-04] MEDS: 0.9 % Sodium Chloride Flush 3 ML SYRINGE IVFLUSH ×3 (07:40→20:31)
[2021-11-04] MEDS: Furosemide 40 MG TABLET 80 MG PO (07:41)
[2021-11-04 07:42] LABS: C Reactive Protein 8.23 mg/dL (< or = 0.50); Lactate Dehydrogenase 428 U/L (118-273)
[2021-11-04] MEDS: Doxazosin Mesylate 2 MG TABLET 4 MG PO (07:42)
[2021-11-04] MEDS: Celecoxib 200 MG CAPSULE PO (07:43)
[2021-11-04] MEDS: Potassium Chloride ER 20 MEQ TAB.ER.PRT PO (07:43)
[2021-11-04] MEDS: lisinopriL 20 MG TABLET PO (07:43)
[2021-11-04] MEDS: Metoprolol Tartrate 100 MG TABLET PO ×2 (07:43→20:31)
[2021-11-04] MEDS: Spironolactone 25 MG TABLET PO (07:43)
--- NOTE | 2021-11-04 11:39 | HO.PM.IMPN ---
Subjective Subjective Date of Service: 11/04/21 Interval History: the patient was seen and evaluated this morning Sitting in chair, feels little better today Reporting generalized weakness and feels out of energy Still have episodes like fever Still complaining of dyspnea with exertion No reported other overnight events. Systemic review: Feeling weak and lethargic No chest pain, palpitation Dyspnea with exertion, coughing No abdominal pain, nausea or vomiting No urinary symptoms No any rash or wounds Physical Exam Vital Signs: Vital Signs: Last Vital Signs Temp 97.3 F 11/04/21 11:14 Pulse 86 11/04/21 11:14 Resp 18 11/04/21 11:14 BP 115/67 11/04/21 11:14 Pulse Ox 94 11/04/21 11:14 BMI result Body Mass Index 23.7 Const: Other: Constitutional : Alert, oriented, in mild respiratory distress Neck : Normal inspection, Supple Cardiovascular : RRR, S1 S2, no lower extremity edema Respiratory : Decreased air entry of further right-sided upper lobe, even lower lobe as well, very fine crackles can be heard In the upper area, no wheezes. Gastrointestinal: soft, lax, Normal bowel sounds, Non tender Skin : Warm, Dry Neurological : Alert & oriented x3, No focal deficit Objective Data Active Medications Acetaminophen (Acetaminophen 325 Mg Tablet) 650 mg PO Q6H PRN PRN Reason: Pain, Mild (Pain Scale 1-3) Last Admin: 11/04/21 07:40 Dose: 650 mg Documented by: MANUEL Benzonatate (Benzonatate 100 Mg Capsule) 100 mg PO TID [facility] Last Admin: 11/04/21 07:40 Dose: 100 mg Documented by: MANUEL Celecoxib (Celecoxib 200 Mg Capsule) 200 mg PO DAILY [facility] Last Admin: 11/04/21 07:43 Dose: 200 mg Documented by: MANUEL Dexamethasone Sodium Phosphate (Dexamethasone Sod Phosphate 4 Mg/Ml Vial) 6 mg IVPUSH DAILY [facility] Last Admin: 11/04/21 07:40 Dose: 6 mg Documented by: MANUEL Doxazosin Mesylate (Doxazosin Mesylate 2 Mg Tablet) 4 mg PO DAILY [facility]; Protocol Last Admin: 11/04/21 07:42 Dose: 4 mg Documented by: MANUEL Finasteride (Finasteride 5 Mg Tablet) 5 mg PO BEDTIME [facility] Last Admin: 11/03/21 20:54 Dose: 5 mg Documented by: ZEN Furosemide (Furosemide 40 Mg Tablet) 80 mg PO DAILY [facility]; Protocol Last Admin: 11/04/21 07:41 Dose: 80 mg Documented by: MANUEL Guaifenesin (Guaifenesin La 600 Mg Tab.Er.12h) 600 mg PO BID [facility] Last Admin: 11/04/21 07:40 Dose: 600 mg Documented by: MANUEL Remdesivir 100 mg/ Sodium (Chloride) 230 mls @ 115 mls/hr IV Q24H [facility] Stop: 11/06/21 19:59 Last Infusion: 11/03/21 19:53 Dose: 0 mls/hr Documented by: ZEN Lisinopril (Lisinopril 20 Mg Tablet) 20 mg PO DAILY [facility]; Protocol Last Admin: 11/04/21 07:43 Dose: 20 mg Documented by: MANUEL Metoprolol Tartrate (Metoprolol Tartrate 100 Mg Tablet) 100 mg PO BID [facility]; Protocol Last Admin: 11/04/21 07:43 Dose: 100 mg Documented by: MANUEL Ondansetron HCl (Ondansetron Hcl 4 Mg/2 Ml Vial) 4 mg IVPUSH Q8H PRN PRN Reason: Nausea and Vomiting Pharmacy Consult (Consult Rx Perform Med Rec) 1 each MISCELLANE ONCE PRN PRN Reason: Consult order Potassium Chloride (Potassium Chloride Er 20 Meq Tab.Er.Prt) 20 meq PO DAILY [facility] Last Admin: 11/04/21 07:43 Dose: 20 meq Documented by: MANUEL Sodium Chloride (0.9 % Sodium Chloride Flush 3 Ml Syringe) 3 ml IVFLUSH QSHIFT [facility] Last Admin: 11/04/21 07:40 Dose: 3 ml Documented by: MANUEL Spironolactone (Spironolactone 25 Mg Tablet) 25 mg PO DAILY [facility]; Protocol Last Admin: 11/04/21 07:43 Dose: 25 mg Documented by: MANUEL Warfarin Sodium (Warfarin Sodium 4 Mg Tablet) 4 mg PO DAILY@1800 [facility] Last Admin: 11/02/21 17:10 Dose: 4 mg Documented by: NEFTALY Labs CBC & Chem 7: 11/04/21 06:16 11/04/21 06:16 Labs: Laboratory Results - last 24 hr 11/04/21 11/04/21 11/04/21 06:16 06:16 06:16 MCV 93.8 MCH 30.6 MCHC 32.6 RDW 20.2 H Plt Count 118 L MPV 12.1 Absolute Nucleated RBC 0.000 Nucleated RBC % (auto) 0.0 PT 41.1 H INR 3.5 H Anion Gap 11 L Estim Creat Clear Calc 75.3 Estimated GFR > 60 Random Glucose 106 Calcium 8.7 Lactate Dehydrogenase C-Reactive Protein 11/04/21 06:16 MCV MCH MCHC RDW Plt Count MPV Absolute Nucleated RBC Nucleated RBC % (auto) PT INR Anion Gap Estim Creat Clear Calc Estimated GFR Random Glucose Calcium Lactate Dehydrogenase 428 H C-Reactive Protein 8.23 H Microbiology Microbiology Results: Microbiology 11/02/21 10:41 Blood Culture - Preliminary Blood - Venous No growth after 24 hours. 11/02/21 10:33 Blood Culture - Preliminary Blood - Venous No growth after 24 hours. Assessment and Plan (1) Hypoxia: Status: Acute (2) Acute on chronic anemia: Status: Acute (3) Pneumonia: Status: Acute (4) COVID-19: Status: Acute Assessment and Plan: An 85 years old male with PMH of AFib on warfarin, AVR, HTN, BPH among others who presented to the hospital complaining of worsening shortness of breath and weakness for the last 3 weeks. Hypoxia on ambulation Secondary to community-acquired pneumonia and COVID-19 infection Use oxygen as needed and wean down as tolerated Community-acquired pneumonia Still spiking fevers Pending blood cultures CXR showed right upper lobe infiltrate Continue azithromycin and Zosyn COVID-19 infection Patient received 2 doses of vaccine Continue dexamethasone daily 3 Remdesivir day 2 ID evaluation AFib, AVR Supratherapeutic INR continue warfarin INR 3.5, to hold today To use metoprolol for rate controlled while inpatient DVT PPX Warfarin Goal of care discussed, patient would like to be DNR but give it a trial of intubation if needed. Quality Stroke Does the patient have a stroke diagnosis?: No VTE Prior VTE?: No VTE Risk Level:: Medical - low VTE Device Contraindication: Treatment Not Indicated VTE Drug Contraindication: Treatment Not Indicated
[2021-11-04] MEDS: Remdesivir 100 MG in 0.9 % Sodium Chloride 230 ML 115 MG IV (17:39)
[2021-11-04] MEDS: Finasteride 5 MG TABLET PO (20:31)
--- NOTE | 2021-11-04 21:51 | P.CNID_ITS ---
History of Present Illness Data of Consult Service Date: 11/02/21 Requesting physician: Juan Bailey Primary Care Provider: Milton Durán MD HPI Reason for consult: COVID He presents to hospital with shortness of breath and cough for three days. He has fever and chills. He has no nausea or vomiting. He has had two doses of COVID vaccine in spring but no booster. Review of Systems Review of Systems: Yes all other systems are reviewed and are negative PMF Past Medical History Medical History Atrial fibrillation HTN (hypertension) Family History Family history: reviewed and not pertinent Surgical History Surgical History Aortic valve replaced History of cholecystectomy Social History Social History Household Members: Spouse Housing: House Do you presently have visiting nurse or other home services: No Alcohol intake: current Alcohol intake frequency: 0-2 drinks per day Patient Tobacco Use Status: Never used Tobacco service: No Current occupational status: retired [employer] Allergies Allergy/AdvReac Type Severity Reaction Status Date / Time adhesive [ADHESIVE] Allergy Intermediate RASH, Verified 07/19/21 12:55 BLISTERS atenolol [Atenolol] Allergy Mild RASH Verified 07/19/21 12:55 sotalol [Sotalol] Allergy Mild RASH Verified 07/19/21 12:55 atorvastatin [From Lipitor] AdvReac Mild SEVERE Verified 07/19/21 12:55 ACHES AND PAINS Active Medications: Current Medications Acetaminophen (Acetaminophen 325 Mg Tablet) 650 mg PO Q6H PRN PRN Reason: Pain, Mild (Pain Scale 1-3) Last Admin: 11/04/21 07:40 Dose: 650 mg Documented by: Benzonatate (Benzonatate 100 Mg Capsule) 100 mg PO TID [facility]S [facility]CLUDE 234 BEDS AT [facility] Last Admin: 11/04/21 20:31 Dose: 100 mg Documented by: Celecoxib (Celecoxib 200 Mg Capsule) 200 mg PO DAILY [facility]S [facility]CLUDE 234 BEDS AT THE [facility] Last Admin: 11/04/21 07:43 Dose: 200 mg Documented by: Dexamethasone Sodium Phosphate (Dexamethasone Sod Phosphate 4 Mg/Ml Vial) 6 mg IVPUSH DAILY [facility]CLUDE 234 BEDS AT THE [facility] Last Admin: 11/04/21 07:40 Dose: 6 mg Documented by: Doxazosin Mesylate (Doxazosin Mesylate 2 Mg Tablet) 4 mg PO DAILY [facility]CLUDE 234 BEDS AT [facility]; Protocol Last Admin: 11/04/21 07:42 Dose: 4 mg Documented by: Finasteride (Finasteride 5 Mg Tablet) 5 mg PO BEDTIME COUNTS INCLUDE 234 BEDS AT THE [facility] Last Admin: 11/04/21 20:31 Dose: 5 mg Documented by: Furosemide (Furosemide 40 Mg Tablet) 80 mg PO DAILY [facility]CLUDE 234 BEDS AT [facility]; Protocol Last Admin: 11/04/21 07:41 Dose: 80 mg Documented by: Guaifenesin (Guaifenesin La 600 Mg Tab.Er.12h) 600 mg PO BID [facility]S INCLUDE 234 BEDS AT [facility] Last Admin: 11/04/21 20:31 Dose: 600 mg Documented by: Remdesivir 100 mg/ Sodium (Chloride) 230 mls @ 115 mls/hr IV Q24H [facility]S INCLUDE 234 BEDS AT THE [facility] Stop: 11/06/21 19:59 Last Infusion: 11/04/21 20:43 Dose: Infused Documented by: Lisinopril (Lisinopril 20 Mg Tablet) 20 mg PO DAILY [facility]CLUDE 234 BEDS AT [facility]; Protocol Last Admin: 11/04/21 07:43 Dose: 20 mg Documented by: Metoprolol Tartrate (Metoprolol Tartrate 100 Mg Tablet) 100 mg PO BID [facility]S INCLUDE 234 BEDS AT [facility]; Protocol Last Admin: 11/04/21 20:31 Dose: 100 mg Documented by: Ondansetron HCl (Ondansetron Hcl 4 Mg/2 Ml Vial) 4 mg IVPUSH Q8H PRN PRN Reason: Nausea and Vomiting Pharmacy Consult (Consult Rx Perform Med Rec) 1 each MISCELLANE ONCE PRN PRN Reason: Consult order Potassium Chloride (Potassium Chloride Er 20 Meq Tab.Er.Prt) 20 meq PO DAILY [facility] 234 BEDS AT [facility] Last Admin: 11/04/21 07:43 Dose: 20 meq Documented by: Sodium Chloride (0.9 % Sodium Chloride Flush 3 Ml Syringe) 3 ml IVFLUSH QSHIFT COUNTS INCLUDE 234 BEDS AT THE [facility] Last Admin: 11/04/21 20:31 Dose: 3 ml Documented by: Spironolactone (Spironolactone 25 Mg Tablet) 25 mg PO DAILY [facility]CLUDE 234 BEDS AT [facility]; Protocol Last Admin: 11/04/21 07:43 Dose: 25 mg Documented by: Warfarin Sodium (Warfarin Sodium 4 Mg Tablet) 4 mg PO DAILY@1800 [facility]S INCLUDE 234 BEDS AT [facility] Last Admin: 11/02/21 17:10 Dose: 4 mg Documented by: Home Medications Medication Instructions Recorded Confirmed Last Taken Type acebutolol 200 mg capsule 200 mg PO BEDTIME 04/17/21 11/02/21 04/16/21 History acebutolol 200 mg capsule 400 mg PO DAILY 04/17/21 11/02/21 Unknown History doxazosin 4 mg tablet 1 tab PO DAILY 04/17/21 11/02/21 Unknown History finasteride 5 mg tablet 5 mg PO BEDTIME 04/17/21 11/02/21 Unknown History furosemide 80 mg tablet 1 tab PO QAM 04/17/21 11/02/21 Unknown History lisinopril 20 mg tablet 20 mg PO DAILY 04/17/21 11/02/21 Unknown History rosuvastatin 40 mg tablet 1 tab PO DAILY 04/17/21 11/02/21 Unknown History potassium chloride 20 mEq 20 meq PO DAILY 07/19/21 11/02/21 Unknown History tablet,extended release(part/cryst) (Klor-Con M) spironolactone 25 mg tablet 25 mg PO QAM 07/19/21 11/02/21 Unknown History celecoxib 200 mg capsule 1 cap PO DAILY 11/02/21 11/02/21 Unknown History warfarin 4 mg tablet 4 mg PO DAILY@1800 11/02/21 11/02/21 Unknown History Physical Exam Vital Signs: Vital Signs: Last Vital Signs Temp 98.6 F 11/04/21 19:46 Pulse 71 11/04/21 20:31 Resp 18 11/04/21 19:46 BP 122/54 L 11/04/21 20:31 Pulse Ox 95 11/04/21 19:46 BMI result Body Mass Index 23.7 Const: General: cooperative Eyes: General: appearance normal, both eyes and all related structures Resp: Effort & Inspection: normal respiratory effort and able to speak in complete sentences Cardio: Rate: regular rate Rhythm: regular rhythm GI: Palpation (GI): Soft to palpation and nontender Extrem: General: Yes normal to inspection Results Labs CBC & Chem 7: 11/07/21 06:14 11/07/21 06:14 Labs: Short CBC 11/04/21 Range/Units 06:16 WBC 6.1 (4.8-10.8) X10*3/uL Hgb 9.4 L (14.0-18.0) g/dl Hct 28.8 L (42.0-52.0) % Plt Count 118 L (160-400) X10*3/uL BMP 11/04/21 06:16 Sodium 135 Potassium 4.0 Chloride 99 Carbon Dioxide 29 BUN 23 H Creatinine 0.81 Calcium 8.7 Microbiology Microbiology Results: Microbiology 11/02/21 10:41 Blood - Venous Blood Culture - Preliminary No growth after 48 hours. 11/02/21 10:33 Blood - Venous Blood Culture - Preliminary No growth after 48 hours. Assessment and Plan (1) Hypoxia: Status: Acute (2) COVID-19: Status: Acute He has symptoms under seven to ten days He has hypoxia He has not received booster He says he was at [employer] for [place] among large amounts of unfamiliar people eating. Would continue oxygen as indicated Dexamethasone Remdesivir and follow LFTs
[2021-11-05] VITALS (8 sets, daily range): BP systolic 128–164; BP diastolic 60–74; PULSE 56–90; RESP 18–20; TEMP 36.6–37.3; O2SAT 92–96
[2021-11-05 05:43] LABS: Hemoglobin 8.8 g/dl (14.0-18.0); PLT CLUMP 1
[2021-11-05 05:45] LABS: Hematocrit 26.7 % (42.0-52.0); Mean Corpuscular Hemoglobin 30.8 pg (27.0-33.0); Mean Corpuscular Volume 93.4 fL (80.0-98.0); Mean Platelet Volume 11.9 fL (9.4-12.4); Platelet Count 118 X10*3/uL (160-400); Red Blood Count 2.86 X10*6/uL (4.60-5.80); White Blood Count 5.3 X10*3/uL (4.8-10.8)
[2021-11-05 06:05] LABS: Anion Gap 10 (12-20); Blood Urea Nitrogen 23 mg/dL (9-16); Calcium 8.3 mg/dL (8.4-10.2); Carbon Dioxide 29 mmol/L (22-29); Chloride 101 mmol/L (96-108); Creatinine Clr Calc Pharmacy 87.1; Estimated Glomerular Filt Rate > 60; Glucose Random 108 mg/dL (60-115); Potassium 3.9 mmol/L (3.3-5.1); Sodium 136 mmol/L (135-145)
[2021-11-05] MEDS: Doxazosin Mesylate 2 MG TABLET 4 MG PO (08:48)
[2021-11-05] MEDS: Metoprolol Tartrate 100 MG TABLET PO ×2 (08:48→20:21)
[2021-11-05] MEDS: Benzonatate 100 MG CAPSULE PO ×3 (08:48→20:21)
[2021-11-05] MEDS: Potassium Chloride ER 20 MEQ TAB.ER.PRT PO (08:48)
[2021-11-05] MEDS: lisinopriL 20 MG TABLET PO (08:48)
[2021-11-05] MEDS: Spironolactone 25 MG TABLET PO (08:48)
[2021-11-05] MEDS: Celecoxib 200 MG CAPSULE PO (08:48)
[2021-11-05] MEDS: Furosemide 40 MG TABLET 80 MG PO (08:48)
[2021-11-05] MEDS: 0.9 % Sodium Chloride Flush 3 ML SYRINGE IVFLUSH ×2 (08:49→15:27)
[2021-11-05] MEDS: dexAMETHasone sod phosphate 4 MG/ML VIAL 6 MG IVPUSH (08:49)
[2021-11-05] MEDS: guaiFENesin LA 600 MG TAB.ER.12H PO ×2 (08:49→20:21)
--- NOTE | 2021-11-05 10:57 | HO.PM.IMPN ---
Subjective Subjective Date of Service: 11/05/21 Interval History: the patient was seen and evaluated this morning Sitting in chair, feels better today improving generalized weakness and feels out of energy as he is out of bed No more fever overnight Still complaining of dyspnea with exertion No reported other overnight events. Systemic review: Feeling weak and lethargic No chest pain, palpitation Dyspnea with exertion, coughing No abdominal pain, nausea or vomiting No urinary symptoms No any rash or wounds Physical Exam Vital Signs: Vital Signs: Last Vital Signs Temp 98.5 F 11/05/21 07:57 Pulse 90 11/05/21 08:48 Resp 18 11/05/21 07:57 BP 159/74 H 11/05/21 08:48 Pulse Ox 93 11/05/21 07:57 BMI result Body Mass Index 23.7 Const: Other: Constitutional : Alert, oriented, in mild respiratory distress Neck : Normal inspection, Supple Cardiovascular : RRR, S1 S2, no lower extremity edema Respiratory : Decreased air entry of further right-sided upper lobe, even lower lobe as well, very fine crackles can be heard In the upper area, no wheezes. Gastrointestinal: soft, lax, Normal bowel sounds, Non tender Skin : Warm, Dry Neurological : Alert & oriented x3, No focal deficit Objective Data Active Medications Acetaminophen (Acetaminophen 325 Mg Tablet) 650 mg PO Q6H PRN PRN Reason: Pain, Mild (Pain Scale 1-3) Last Admin: 11/04/21 07:40 Dose: 650 mg Documented by: MANUEL Benzonatate (Benzonatate 100 Mg Capsule) 100 mg PO TID [facility] Last Admin: 11/05/21 08:48 Dose: 100 mg Documented by: JANNETH Celecoxib (Celecoxib 200 Mg Capsule) 200 mg PO DAILY [facility] Last Admin: 11/05/21 08:48 Dose: 200 mg Documented by: JANNETH Dexamethasone Sodium Phosphate (Dexamethasone Sod Phosphate 4 Mg/Ml Vial) 6 mg IVPUSH DAILY [facility] Last Admin: 11/05/21 08:49 Dose: 6 mg Documented by: JANNETH Doxazosin Mesylate (Doxazosin Mesylate 2 Mg Tablet) 4 mg PO DAILY [facility]; Protocol Last Admin: 11/05/21 08:48 Dose: 4 mg Documented by: JANNETH Finasteride (Finasteride 5 Mg Tablet) 5 mg PO BEDTIME [facility] Last Admin: 11/04/21 20:31 Dose: 5 mg Documented by: SONG Furosemide (Furosemide 40 Mg Tablet) 80 mg PO DAILY [facility]; Protocol Last Admin: 11/05/21 08:48 Dose: 80 mg Documented by: JANNETH Guaifenesin (Guaifenesin La 600 Mg Tab.Er.12h) 600 mg PO BID [facility] Last Admin: 11/05/21 08:49 Dose: 600 mg Documented by: JANNETH Remdesivir 100 mg/ Sodium (Chloride) 230 mls @ 115 mls/hr IV Q24H [facility] Stop: 11/06/21 19:59 Last Infusion: 11/04/21 20:43 Dose: 0 mls/hr Documented by: SONG Lisinopril (Lisinopril 20 Mg Tablet) 20 mg PO DAILY [facility]; Protocol Last Admin: 11/05/21 08:48 Dose: 20 mg Documented by: JANNETH Metoprolol Tartrate (Metoprolol Tartrate 100 Mg Tablet) 100 mg PO BID [facility]; Protocol Last Admin: 11/05/21 08:48 Dose: 100 mg Documented by: JANNETH Ondansetron HCl (Ondansetron Hcl 4 Mg/2 Ml Vial) 4 mg IVPUSH Q8H PRN PRN Reason: Nausea and Vomiting Pharmacy Consult (Consult Rx Perform Med Rec) 1 each MISCELLANE ONCE PRN PRN Reason: Consult order Potassium Chloride (Potassium Chloride Er 20 Meq Tab.Er.Prt) 20 meq PO DAILY [facility] Last Admin: 11/05/21 08:48 Dose: 20 meq Documented by: JANNETH Sodium Chloride (0.9 % Sodium Chloride Flush 3 Ml Syringe) 3 ml IVFLUSH QSHIFT [facility] Last Admin: 11/05/21 08:49 Dose: 3 ml Documented by: JANNETH Spironolactone (Spironolactone 25 Mg Tablet) 25 mg PO DAILY [facility]; Protocol Last Admin: 11/05/21 08:48 Dose: 25 mg Documented by: JANNETH Warfarin Sodium (Warfarin Sodium 4 Mg Tablet) 4 mg PO DAILY@1800 [facility] Last Admin: 11/02/21 17:10 Dose: 4 mg Documented by: NEFTALY Labs CBC & Chem 7: 11/05/21 05:17 11/05/21 05:17 Labs: Laboratory Results - last 24 hr 11/05/21 11/05/21 11/05/21 05:17 05:17 05:17 MCV 93.4 MCH 30.8 MCHC 33.0 RDW 20.0 H Plt Count 118 L MPV 11.9 Absolute Nucleated RBC 0.000 Nucleated RBC % (auto) 0.0 PT 35.0 H INR 3.0 H Anion Gap 10 L Estim Creat Clear Calc 87.1 Estimated GFR > 60 Random Glucose 108 Calcium 8.3 L Microbiology Microbiology Results: Microbiology 11/02/21 10:41 Blood Culture - Preliminary Blood - Venous No growth after 48 hours. 11/02/21 10:33 Blood Culture - Preliminary Blood - Venous No growth after 48 hours. Assessment and Plan (1) Acute on chronic anemia: Status: Acute (2) Pneumonia: Status: Acute (3) COVID-19: Status: Acute Assessment and Plan: An 85 years old male with PMH of AFib on warfarin, AVR, HTN, BPH among others who presented to the hospital complaining of worsening shortness of breath and weakness for the last 3 weeks. Hypoxia on ambulation Secondary to community-acquired pneumonia and COVID-19 infection Use oxygen as needed and wean down as tolerated Community-acquired pneumonia No fevers last 24 hours Negative blood cultures CXR showed right upper lobe infiltrate azithromycin and Zosyn discontinued by ID Monitor COVID-19 infection Patient received 2 doses of vaccine Continue dexamethasone daily 3 Remdesivir , 3 doses received ID evaluation appreciated AFib, AVR Supratherapeutic INR continue warfarin when INR therapeutic INR 3, to hold today To use metoprolol for rate controlled while inpatient DVT PPX Warfarin Goal of care discussed, patient would like to be DNR but give it a trial of intubation if needed. Quality Stroke Does the patient have a stroke diagnosis?: No VTE Prior VTE?: No VTE Risk Level:: Medical - low VTE Device Contraindication: Treatment Not Indicated VTE Drug Contraindication: Treatment Not Indicated
--- NOTE | 2021-11-05 15:32 | MHC.CM.PN ---
Male 85 DX Covid+ Not yet ready for discharge per MD rounds. Discharge in 1-2 days. DP home with family support. He will arrange for transport home.
[2021-11-05] MEDS: Remdesivir 100 MG in 0.9 % Sodium Chloride 230 ML 115 MG IV (18:13)
[2021-11-05] MEDS: Finasteride 5 MG TABLET PO (20:21)
[2021-11-06] VITALS (9 sets, daily range): BP systolic 137–163; BP diastolic 69–77; PULSE 56–82; RESP 15–20; TEMP 36.4–36.6; O2SAT 92–98
[2021-11-06] MEDS: 0.9 % Sodium Chloride Flush 3 ML SYRINGE IVFLUSH ×4 (01:47→19:53)
[2021-11-06 06:21] LABS: Hemoglobin 9.2 g/dl (14.0-18.0); Mean Corpuscular HGB Conc 32.9 g/dl (31.0-36.0); Mean Corpuscular Hemoglobin 30.5 pg (27.0-33.0); Mean Corpuscular Volume 92.7 fL (80.0-98.0); Mean Platelet Volume 11.4 fL (9.4-12.4); Platelet Count 151 X10*3/uL (160-400); Red Blood Count 3.02 X10*6/uL (4.60-5.80); Red Cell Distribution Width 19.9 % (11.0-16.0); White Blood Count 4.4 X10*3/uL (4.8-10.8)
[2021-11-06 06:42] LABS: INTERNATIONAL NORM RATIO 2.7 (0.9-1.1); Prothrombin Time 31.9 SEC (9.9-13.0)
[2021-11-06 06:44] LABS: Alanine Aminotransferase 48 U/L (0-40); Albumin Level 3.3 g/dL (3.5-5.0); Alkaline Phosphatase 52 U/L (39-117); Anion Gap 9 (12-20); Aspartate Amino Transferase 59 U/L (5-37); Bilirubin Direct 0.4 mg/dL (0.0-0.5); Bilirubin Total 0.8 mg/dL (0.0-1.0); Blood Urea Nitrogen 18 mg/dL (9-16); Calcium 8.4 mg/dL (8.4-10.2); Carbon Dioxide 33 mmol/L (22-29); Chloride 99 mmol/L (96-108); Creatinine Clr Calc Pharmacy 87.1; Estimated Glomerular Filt Rate > 60; Glucose Random 112 mg/dL (60-115); Lactate Dehydrogenase 445 U/L (118-273); Potassium 4.2 mmol/L (3.3-5.1); Sodium 137 mmol/L (135-145)
[2021-11-06] MEDS: dexAMETHasone sod phosphate 4 MG/ML VIAL 6 MG IVPUSH (09:05)
[2021-11-06] MEDS: Spironolactone 25 MG TABLET PO (09:05)
[2021-11-06] MEDS: Potassium Chloride ER 20 MEQ TAB.ER.PRT PO (09:06)
[2021-11-06] MEDS: Celecoxib 200 MG CAPSULE PO (09:06)
[2021-11-06] MEDS: Furosemide 40 MG TABLET 80 MG PO (09:06)
[2021-11-06] MEDS: Metoprolol Tartrate 100 MG TABLET PO ×2 (09:06→19:34)
[2021-11-06] MEDS: Benzonatate 100 MG CAPSULE PO ×3 (09:06→19:54)
[2021-11-06] MEDS: Doxazosin Mesylate 2 MG TABLET 4 MG PO (09:06)
[2021-11-06] MEDS: guaiFENesin LA 600 MG TAB.ER.12H PO ×2 (09:06→19:34)
[2021-11-06] MEDS: lisinopriL 20 MG TABLET PO (09:06)
--- NOTE | 2021-11-06 09:26 | HO.PM.IMPN ---
Subjective Subjective Date of Service: 11/06/21 Interval History: the patient was seen and evaluated this morning Sitting in chair, feels better today improving generalized weakness and feels more energy as he is out of bed Still complaining of coughing and mild dyspnea with exertion No reported other overnight events. Systemic review: Feeling weak and lethargic No chest pain, palpitation Dyspnea with exertion, coughing No abdominal pain, nausea or vomiting No urinary symptoms No any rash or wounds Physical Exam Vital Signs: Vital Signs: Last Vital Signs Temp 97.7 F 11/06/21 07:28 Pulse 70 11/06/21 09:06 Resp 18 11/06/21 07:28 BP 137/77 11/06/21 09:06 Pulse Ox 95 11/06/21 07:28 BMI result Body Mass Index 23.7 Const: Other: Constitutional : Alert, oriented, in mild respiratory distress Neck : Normal inspection, Supple Cardiovascular : RRR, no lower extremity edema Respiratory : Chest wall moving bilaterally, no appreciated wheezes Gastrointestinal: soft, lax, Normal bowel sounds, Non tender Skin : Warm, Dry Neurological : Alert & oriented x3, No focal deficit Objective Data Active Medications Acetaminophen (Acetaminophen 325 Mg Tablet) 650 mg PO Q6H PRN PRN Reason: Pain, Mild (Pain Scale 1-3) Last Admin: 11/04/21 07:40 Dose: 650 mg Documented by: MANUEL Benzonatate (Benzonatate 100 Mg Capsule) 100 mg PO TID [facility] Last Admin: 11/06/21 09:06 Dose: 100 mg Documented by: JANNETH Celecoxib (Celecoxib 200 Mg Capsule) 200 mg PO DAILY [facility] Last Admin: 11/06/21 09:06 Dose: 200 mg Documented by: JANNETH Dexamethasone Sodium Phosphate (Dexamethasone Sod Phosphate 4 Mg/Ml Vial) 6 mg IVPUSH DAILY [facility] Last Admin: 11/06/21 09:05 Dose: 6 mg Documented by: JANNETH Doxazosin Mesylate (Doxazosin Mesylate 2 Mg Tablet) 4 mg PO DAILY [facility]; Protocol Last Admin: 11/06/21 09:06 Dose: 4 mg Documented by: JANNETH Finasteride (Finasteride 5 Mg Tablet) 5 mg PO BEDTIME [facility] Last Admin: 11/05/21 20:21 Dose: 5 mg Documented by: BARRIE Furosemide (Furosemide 40 Mg Tablet) 80 mg PO DAILY [facility]; Protocol Last Admin: 11/06/21 09:06 Dose: 80 mg Documented by: JANNETH Guaifenesin (Guaifenesin La 600 Mg Tab.Er.12h) 600 mg PO BID [facility] Last Admin: 11/06/21 09:06 Dose: 600 mg Documented by: JANNETH Remdesivir 100 mg/ Sodium (Chloride) 230 mls @ 115 mls/hr IV Q24H [facility] Stop: 11/06/21 19:59 Last Infusion: 11/05/21 20:21 Dose: 0 mls/hr Documented by: BARRIE Lisinopril (Lisinopril 20 Mg Tablet) 20 mg PO DAILY [facility]; Protocol Last Admin: 11/06/21 09:06 Dose: 20 mg Documented by: JANNETH Metoprolol Tartrate (Metoprolol Tartrate 100 Mg Tablet) 100 mg PO BID [facility]; Protocol Last Admin: 11/06/21 09:06 Dose: 100 mg Documented by: JANNETH Ondansetron HCl (Ondansetron Hcl 4 Mg/2 Ml Vial) 4 mg IVPUSH Q8H PRN PRN Reason: Nausea and Vomiting Pharmacy Consult (Consult Rx Perform Med Rec) 1 each MISCELLANE ONCE PRN PRN Reason: Consult order Potassium Chloride (Potassium Chloride Er 20 Meq Tab.Er.Prt) 20 meq PO DAILY [facility] Last Admin: 11/06/21 09:06 Dose: 20 meq Documented by: JANNETH Sodium Chloride (0.9 % Sodium Chloride Flush 3 Ml Syringe) 3 ml IVFLUSH QSHIFT [facility] Last Admin: 11/06/21 09:06 Dose: 3 ml Documented by: JANNETH Spironolactone (Spironolactone 25 Mg Tablet) 25 mg PO DAILY [facility]; Protocol Last Admin: 11/06/21 09:05 Dose: 25 mg Documented by: JANNETH Warfarin Sodium (Warfarin Sodium 4 Mg Tablet) 4 mg PO DAILY@1800 [facility] Last Admin: 11/02/21 17:10 Dose: 4 mg Documented by: NEFTALY Labs CBC & Chem 7: 11/06/21 06:11 11/06/21 06:11 Labs: Laboratory Results - last 24 hr 11/06/21 11/06/21 11/06/21 06:11 06:11 06:11 MCV 92.7 MCH 30.5 MCHC 32.9 RDW 19.9 H Plt Count 151 L D MPV 11.4 Absolute Nucleated RBC 0.000 Nucleated RBC % (auto) 0.0 PT 31.9 H INR 2.7 H Anion Gap Estim Creat Clear Calc Estimated GFR Random Glucose Calcium Total Bilirubin 0.8 Direct Bilirubin 0.4 AST 59 H ALT 48 H Alkaline Phosphatase 52 Lactate Dehydrogenase 445 H C-Reactive Protein 6.10 H Total Protein 6.0 L Albumin 3.3 L 11/06/21 06:11 MCV MCH MCHC RDW Plt Count MPV Absolute Nucleated RBC Nucleated RBC % (auto) PT INR Anion Gap 9 L Estim Creat Clear Calc 87.1 Estimated GFR > 60 Random Glucose 112 Calcium 8.4 Total Bilirubin Direct Bilirubin AST ALT Alkaline Phosphatase Lactate Dehydrogenase C-Reactive Protein Total Protein Albumin Assessment and Plan (1) Pneumonia: Status: Acute (2) COVID-19: Status: Acute Assessment and Plan: An 85 years old male with PMH of AFib on warfarin, AVR, HTN, BPH among others who presented to the hospital complaining of worsening shortness of breath and weakness for the last 3 weeks. Hypoxia on ambulation Secondary to COVID-19 infection Use oxygen as needed and wean down as tolerated COVID-19 infection Patient received 2 doses of vaccine Continue dexamethasone daily 5/5 Remdesivir , 4 doses received, 5th dose today ID evaluation appreciated Community-acquired pneumonia CXR showed right upper lobe infiltrate Negative blood cultures azithromycin and Zosyn discontinued by ID Monitor AFib, AVR Supratherapeutic INR INR 2.7 today Restart home does warfarin To use metoprolol for rate controlled while inpatient DVT PPX Warfarin Goal of care discussed, patient would like to be DNR but give it a trial of intubation if needed Dispo: Plan to discharge home tomorrow Quality Stroke Does the patient have a stroke diagnosis?: No VTE Prior VTE?: No VTE Risk Level:: Medical - low VTE Device Contraindication: Treatment Not Indicated VTE Drug Contraindication: Treatment Not Indicated
[2021-11-06] MEDS: Remdesivir 100 MG in 0.9 % Sodium Chloride 230 ML 115 MG IV (19:33)
[2021-11-06] MEDS: Finasteride 5 MG TABLET PO (19:34)
[2021-11-06] MEDS: Warfarin Sodium 4 MG TABLET PO (19:34)
[2021-11-07 03:29] VITALS: BP 166/77; PULSE 63; RESP 16; TEMP 36.4; O2SAT 94
[2021-11-07 06:25] LABS: Mean Corpuscular HGB Conc 33.3 g/dl (31.0-36.0); Mean Corpuscular Hemoglobin 30.4 pg (27.0-33.0); Mean Corpuscular Volume 91.2 fL (80.0-98.0); Mean Platelet Volume 12.3 fL (9.4-12.4); Platelet Count 194 X10*3/uL (160-400); Red Blood Count 2.96 X10*6/uL (4.60-5.80); Red Cell Distribution Width 19.9 % (11.0-16.0); White Blood Count 4.8 X10*3/uL (4.8-10.8)
[2021-11-07 06:32] LABS: INTERNATIONAL NORM RATIO 2.4 (0.9-1.1); Prothrombin Time 27.9 SEC (9.9-13.0)
[2021-11-07 06:44] LABS: Anion Gap 10 (12-20); Blood Urea Nitrogen 18 mg/dL (9-16); Calcium 8.5 mg/dL (8.4-10.2); Carbon Dioxide 32 mmol/L (22-29); Chloride 98 mmol/L (96-108); Estimated Glomerular Filt Rate > 60; Glucose Random 112 mg/dL (60-115); Potassium 3.8 mmol/L (3.3-5.1); Sodium 136 mmol/L (135-145)
[2021-11-07 07:30] VITALS: BP 148/71; PULSE 77; RESP 20; TEMP 36.6; O2SAT 94
[2021-11-07 09:10] VITALS: BP 148/71; PULSE 77
[2021-11-07] MEDS: Doxazosin Mesylate 2 MG TABLET 4 MG PO (09:10)
[2021-11-07] MEDS: dexAMETHasone sod phosphate 4 MG/ML VIAL 6 MG IVPUSH (09:10)
[2021-11-07] MEDS: 0.9 % Sodium Chloride Flush 3 ML SYRINGE IVFLUSH (09:10)
[2021-11-07 09:11] VITALS: BP 148/71; PULSE 77
[2021-11-07] MEDS: Celecoxib 200 MG CAPSULE PO (09:11)
[2021-11-07] MEDS: Benzonatate 100 MG CAPSULE PO (09:11)
[2021-11-07] MEDS: Potassium Chloride ER 20 MEQ TAB.ER.PRT PO (09:11)
[2021-11-07] MEDS: Spironolactone 25 MG TABLET PO (09:11)
[2021-11-07] MEDS: lisinopriL 20 MG TABLET PO (09:11)
[2021-11-07] MEDS: Furosemide 40 MG TABLET 80 MG PO (09:11)
[2021-11-07] MEDS: Metoprolol Tartrate 100 MG TABLET PO (09:11)
[2021-11-07] MEDS: guaiFENesin LA 600 MG TAB.ER.12H PO (09:12)
[2021-11-07 11:01] VITALS: BP 155/66; PULSE 62; RESP 20; TEMP 36.5; O2SAT 95
--- NOTE | 2021-11-07 11:58 | PM.DS ---
DS: Providers Provider Date of Service: 11/07/21 Date of admission: 11/02/21 16:06 Primary care physician: Milton Durán MD Consults: 11/02/21 16:10 Consult to Infectious Diseases Routine Consulting Provider: Mayda Villalta Reason for consultation: COVID infection, pneumonia DS: Diagnosis Discharge Diagnosis (1) Pneumonia: Status: Acute (2) COVID-19: Status: Acute DS: Summary Hospital Course Hospital Course: Patient was admitted for acute hypoxic respiratory failure secondary to COVID pneumonia. He received 5 days of dexamethasone and 5 days of remdesivir. His symptoms significantly improved he was able to be weaned off oxygen. He will be discharged home on 5 more days of dexamethasone. He will remain in isolation for least 10 days from symptom onset. Time Spent with Patient Time attestation: Total time spent providing and/or coordinating discharge services: Discharge coordination time: Greater than 30 minutes Quality: Stroke Does the patient have a stroke diagnosis?: No Physical Exam Vital Signs: Vital Signs: Last Vital Signs Temp 97.7 F 11/07/21 11:01 Pulse 62 11/07/21 11:01 Resp 20 11/07/21 11:01 BP 155/66 H 11/07/21 11:01 Pulse Ox 95 11/07/21 11:01 BMI result Body Mass Index 23.7 Other:?Constitutional : Alert, oriented, in mild respiratory distress Neck : Normal inspection, Supple Cardiovascular : RRR,? no lower extremity edema Respiratory :? Chest wall moving bilaterally, no appreciated wheezes Gastrointestinal:? soft, lax, Normal bowel sounds, Non tender Skin : Warm, Dry Neurological : Alert & oriented x3, No focal deficit DS: Data Data Completed and Pending Labs on day of discharge: Laboratory Results - last 24 hr 11/07/21 11/07/21 11/07/21 06:14 06:14 06:14 WBC 4.8 RBC 2.96 L Hgb 9.0 L Hct 27.0 L MCV 91.2 MCH 30.4 MCHC 33.3 RDW 19.9 H Plt Count 194 D MPV 12.3 Absolute Nucleated RBC 0.000 Nucleated RBC % (auto) 0.0 PT 27.9 H INR 2.4 H Sodium 136 Potassium 3.8 Chloride 98 Carbon Dioxide 32 H Anion Gap 10 L BUN 18 H Creatinine 0.67 Estim Creat Clear Calc 91.0 Estimated GFR > 60 Random Glucose 112 Calcium 8.5 Preliminary micro results at discharge 11/02/21 10:41 Blood Culture - Preliminary Blood - Venous No growth after 48 hours. 11/02/21 10:33 Blood Culture - Preliminary Blood - Venous No growth after 48 hours. Discharge Plan Discharge Patient Disposition: Home, Self-Care Discharge Diagnosis: covid Referrals: Milton Druán MD [Primary Care Provider] - 1 Week Discharge Medications: New dexamethasone 6 mg tablet 6 mg PO DAILY Qty: 5 RF: 0 Continued lisinopril 20 mg tablet 20 mg PO DAILY RF: 0 Hold Instructions: Resume on 04/23/21. furosemide 80 mg tablet 1 tab PO QAM RF: 0 doxazosin 4 mg tablet 1 tab PO DAILY RF: 0 acebutolol 200 mg capsule 400 mg PO DAILY RF: 0 finasteride 5 mg tablet 5 mg PO BEDTIME RF: 0 rosuvastatin 40 mg tablet 1 tab PO DAILY RF: 0 acebutolol 200 mg capsule 200 mg PO BEDTIME RF: 0 celecoxib 200 mg capsule 1 cap PO DAILY RF: 0 warfarin 4 mg tablet 4 mg PO DAILY@1800 RF: 0 potassium chloride [Klor-Con M20] 20 mEq tablet,ER particles/crystals 20 meq PO DAILY RF: 0 spironolactone 25 mg tablet 25 mg PO QAM RF: 0 Discharge Orders: Discharge Order (Routine); Ordered 11/07/21 Ordered By: Ozzie Soares Diet: advance to usual diet Activity on Discharge: As tolerated Stand Alone Forms: Patient Portal Discharge page Care Plan Goals: recovery Health Concerns: covid Plan of Treatment: 5 more days of decadron, isolate atleast 10 days from symptom onset Assessment: see above
--- NOTE | 2021-11-07 12:10 | MHC.CM.PN ---
IMM 11/07/21 Male 85 DX Covid+he is discharged today to home, with family support. Patient to arrange transport.
== END 2021-11-07 15:08 | disposition home or self-care (01) | DRG 177 ==
LOC: HO.ED 12:47 → HO.EDOVER 16:19 → HO.IMC 11-03 10:38
PROVIDERS: Internal Medicine; Admitting Provider Student in an Organized Health Care Education/Training Program; Emergency Provider Emergency Medicine; PCP Family Medicine; Visit Provider Internal Medicine
DX: U07.1 COVID-19 (principal); J96.01 Acute respiratory failure with hypoxia; J12.82 Pneumonia due to coronavirus disease 2019; I48.91 Unspecified atrial fibrillation; R79.1 Abnormal coagulation profile; N40.0 Benign prostatic hyperplasia without lower urinary tract symptoms; Z79.1 Long term (current) use of non-steroidal anti-inflammatories (NSAID); Z79.01 Long term (current) use of 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; Z79.899 Other long term (current) drug therapy
CPT/HCPCS: 0241U; 36415; 71046; 80048; 80076; 81001; 83615; 84145; 84484; 85025; 85027; 85610; 85730; 86140; 87040; 93005; 96361; 96365; 96375; 99285; J0456; J0696; J1100; J2405; J2543; J3490

== ENCOUNTER 2021-12-03 | Outpatient (REF) | payer MEDICARE, OTHER, SELFPAY ==
[2021-12-03 07:52] LABS: COVID-19 Test Negative (Negative); IDNOW Serial# 16C4AD1C
== END 2021-12-03 00:01 ==
LOC: HO.LAB
PROVIDERS: Visit Provider Internal Medicine
DX: Z20.822 Contact with and (suspected) exposure to COVID-19 (principal)
CPT/HCPCS: 36415; 87635; C9803

== ENCOUNTER 2022-02-25 16:51 | Emergency (ER) | payer MEDICARE, OTHER, SELFPAY ==
[2022-02-25 17:13] VITALS: BP 112/64; PULSE 61; RESP 18; TEMP 36.9; O2SAT 98; BMI 29.1
== END 2022-02-25 19:47 | disposition left against medical advice (07) ==
PROVIDERS: Emergency Provider Emergency Medicine; PCP Family Medicine
DX: S41.112A Laceration without foreign body of left upper arm, initial encounter (principal); W20.8XXA Other cause of strike by thrown, projected or falling object, initial encounter; I48.91 Unspecified atrial fibrillation; I10 Essential (primary) hypertension; Y93.9 Activity, unspecified; Y92.9 Unspecified place or not applicable; Y99.9 Unspecified external cause status
CPT/HCPCS: 99281; 99282

== ENCOUNTER 2022-02-26 15:22 | Emergency (ER) | payer MEDICARE, OTHER, SELFPAY ==
[2022-02-26 15:27] VITALS: BP 153/76; PULSE 60; RESP 18; TEMP 36.6; O2SAT 97; BMI 30.7
--- NOTE | 2022-02-26 15:59 | ED_ITS ---
HPI - Wound/Laceration General Chief Complaint: Wound/Laceration Stated Complaint: bleeding L arm Time Seen by Provider: 02/26/22 15:28 History of Present Illness HPI narrative: Patient complains of left forearm laceration after banging into door, he is on Coumadin he checked his INR yesterday which was 2.4 he has no bleeding from any other site no new bruising Related Data Home Medications Medication Instructions Recorded Confirmed acebutolol 200 mg capsule 200 mg PO BEDTIME 04/17/21 11/02/21 acebutolol 200 mg capsule 400 mg PO DAILY 04/17/21 11/02/21 doxazosin 4 mg tablet 1 tab PO DAILY 04/17/21 11/02/21 finasteride 5 mg tablet 5 mg PO BEDTIME 04/17/21 11/02/21 furosemide 80 mg tablet 1 tab PO QAM 04/17/21 11/02/21 lisinopril 20 mg tablet 20 mg PO DAILY 04/17/21 11/02/21 rosuvastatin 40 mg tablet 1 tab PO DAILY 04/17/21 11/02/21 potassium chloride 20 mEq 20 meq PO DAILY 07/19/21 11/02/21 tablet,extended release(part/cryst) (Klor-Con M) spironolactone 25 mg tablet 25 mg PO QAM 07/19/21 11/02/21 celecoxib 200 mg capsule 1 cap PO DAILY 11/02/21 11/02/21 warfarin 4 mg tablet 4 mg PO DAILY@1800 11/02/21 11/02/21 Previous Rx's Medication Instructions Recorded dexamethasone 6 mg tablet 6 mg PO DAILY #5 tab 11/07/21 Allergies Allergy/AdvReac Type Severity Reaction Status Date / Time adhesive [ADHESIVE] Allergy Intermediate RASH, Verified 07/19/21 12:55 BLISTERS atenolol [Atenolol] Allergy Mild RASH Verified 07/19/21 12:55 sotalol [Sotalol] Allergy Mild RASH Verified 07/19/21 12:55 atorvastatin [From Lipitor] AdvReac Mild SEVERE Verified 07/19/21 12:55 ACHES AND PAINS Review of Systems Review of Systems: Positive for 24 hour old left forearm skin tear No dizziness no weakness no fainting no falling no headache no neck pain no chest pain no bleeding from any other site no bruising no joint pains no difficulty walking or moving arms PMFSH Past Medical History Source: nursing notes reviewed Medical History Atrial fibrillation HTN (hypertension) Surgical History Aortic valve replaced History of cholecystectomy Social History Social History Household Members: Spouse Housing: House Do you presently have visiting nurse or other home services: No Alcohol intake: current Alcohol intake frequency: 0-2 drinks per day Patient Tobacco Use Status: Never used Tobacco Advance Directives: No Advance Directives Information Provided: No service: No Current occupational status: retired Physical Exam Vital Signs: Vital Signs: Last Vital Signs Temp 97.9 F 02/26/22 15:27 Pulse 60 02/26/22 15:27 Resp 18 02/26/22 15:27 BP 153/76 H 02/26/22 15:27 Pulse Ox 97 02/26/22 15:27 BMI result Body Mass Index 30.7 General appearance no acute distress Head is normocephalic atraumatic Neck is supple Respiratory no distress Extremities full range of motion x4 without tenderness swelling or deformity Left forearm had a scabbed over skin tear, over 24 hours old with no signs of infection there is no redness warmth or discharge there was no active bleeding, there is full range of motion in wrist and elbow, neurovascular intact distal Neuro no focal deficit Skin no rash Course Course Course Narrative: 1/2 inch Steri-Strips was applied to partially close the wound which is not bleeding now and then a Surgicel dressing was applied to make sure if he scratches or bangs it that bleeding will be controlled and he is discharged sta ble comfortable Discharge Plan Discharge Clinical Impression: Skin tear of left forearm without complication Patient Disposition: Home, Self-Care Additional Instructions: There is no sign of any infection now You are up-to-date on tetanus shot your last shot was 2018 One piece of tape was applied and a clotting bandage was applied so leave that bandage on for at least 24 hours and then it is okay to change the dressing and wash gently with soap and water, okay to leave it exposed air but if your going out about cover it with a bandage so it does not catch on something and bleed again Return any time for redness swelling any sign of infection any concerns Prescriptions: No Action lisinopril 20 mg tablet 20 mg PO DAILY 0RF Hold Instructions: Resume on 04/23/21. furosemide 80 mg tablet 1 tab PO QAM 0RF doxazosin 4 mg tablet 1 tab PO DAILY 0RF acebutolol 200 mg capsule 400 mg PO DAILY 0RF finasteride 5 mg tablet 5 mg PO BEDTIME 0RF rosuvastatin 40 mg tablet 1 tab PO DAILY 0RF acebutolol 200 mg capsule 200 mg PO BEDTIME 0RF celecoxib 200 mg capsule 1 cap PO DAILY 0RF warfarin 4 mg tablet 4 mg PO DAILY@1800 0RF dexamethasone 6 mg tablet 6 mg PO DAILY Qty: 5 0RF potassium chloride [Klor-Con M20] 20 mEq tablet,ER particles/crystals 20 meq PO DAILY 0RF spironolactone 25 mg tablet 25 mg PO QAM 0RF
== END 2022-02-26 16:49 | disposition home or self-care (01) ==
PROVIDERS: Emergency Provider Emergency Medicine; PCP Family Medicine
DX: S51.812A Laceration without foreign body of left forearm, initial encounter (principal); Y29.XXXA Contact with blunt object, undetermined intent, initial encounter; Y93.9 Activity, unspecified; Y92.9 Unspecified place or not applicable; Y99.9 Unspecified external cause status
CPT/HCPCS: 12001; 99282; 99283

== ENCOUNTER 2022-03-01 06:53 | Outpatient (REF) | payer MEDICARE, OTHER, SELFPAY ==
[2022-03-01 07:28] LABS: Basophils Percent Auto 0.7 % (0-2); Eosinophils Absolute Auto 0.1 X10*3/uL (0.0-0.4); Eosinophils Percent Auto 2.2 % (0-4); Hematocrit 35.1 % (42.0-52.0); Imm Gran Abs Auto 0.01 X10*3/uL (0.00-0.03); Imm Gran Pct Auto 0.2 % (0.0-0.4); Lymphocytes Absolute Auto 1.9 X10*3/uL (1.2-4.9); Lymphocytes Percent Auto 43.6 % (20-40); MANUAL DIFF FLAG SCAN; Mean Corpuscular HGB Conc 31.3 g/dl (31.0-36.0); Mean Corpuscular Hemoglobin 29.5 pg (27.0-33.0); Mean Corpuscular Volume 94.1 fL (80.0-98.0); Monocytes Absolute Auto 0.9 X10*3/uL (0.1-1.2); Monocytes Percent Auto 20.9 % (2-11); Neutrophils Absolute Auto 1.4 x10*3/uL (2.0-8.3); Neutrophils Percent Auto 32.4 % (45-73); Platelet Count 145 X10*3/uL (160-400); Red Blood Count 3.73 X10*6/uL (4.60-5.80); Red Cell Distribution Width 19.9 % (11.0-16.0); Retic HGB Equivalent 34.1 pg (30.0-35.0); Reticulocyte Percent 0.8 % (0.5-1.8); Reticulocytes Absolute 0.028 X10*6/uL (0.026-0.095); SCAN SMEAR FLAG 1; White Blood Count 4.5 X10*3/uL (4.8-10.8)
[2022-03-01 07:50] LABS: SLIDE REVIEW VERIFIED
[2022-03-01 07:55] LABS: Iron 125 mcg/dL (45-160); Percent Iron Saturation 35 % (15-50); Total Iron Binding Capacity 361 mcg/dL (228-428); Unsaturated Iron Binding 236 ug/dL
[2022-03-01 08:16] LABS: Ferritin 258 ng/mL (20-250)
[2022-03-01 08:45] LABS: Vitamin B12 660 pg/mL (200-900)
== END 2022-03-01 06:54 | disposition home or self-care (01) ==
LOC: HO.LAB 06:53
PROVIDERS: PCP Family Medicine; Visit Provider Family Medicine
DX: D64.9 Anemia, unspecified (principal)
CPT/HCPCS: 36415; 82607; 82728; 82746; 83540; 85025; 85045

== ENCOUNTER → 2022-03-04 11:07 | Outpatient (BNVA) | payer MEDICARE, OTHER, SELFPAY | PROVIDERS: PCP Family Medicine; Visit Provider Orthopaedic Surgery | DX: M17.0 Bilateral primary osteoarthritis of knee (principal) | CPT/HCPCS: 20610; 99212; J1100 ==

== ENCOUNTER 2022-05-20 07:38 | Outpatient (REF) | payer MEDICARE, OTHER, SELFPAY ==
[2022-05-20 07:58] LABS: MANUAL DIFF FLAG NO
[2022-05-20 08:20] LABS: Basophils Percent Auto 0.8 % (0-2); Eosinophils Absolute Auto 0.1 X10*3/uL (0.0-0.4); Eosinophils Percent Auto 2.3 % (0-4); Hematocrit 31.4 % (42.0-52.0); Hemoglobin 10.2 g/dl (14.0-18.0); Imm Gran Abs Auto 0.04 X10*3/uL (0.00-0.03); Imm Gran Pct Auto 0.8 % (0.0-0.4); Mean Corpuscular HGB Conc 32.5 g/dl (31.0-36.0); Mean Corpuscular Hemoglobin 30.4 pg (27.0-33.0); Mean Corpuscular Volume 93.7 fL (80.0-98.0); Mean Platelet Volume 12.2 fL (9.4-12.4); Monocytes Absolute Auto 0.9 X10*3/uL (0.1-1.2); Monocytes Percent Auto 19.1 % (2-11); NRBC Pct Auto 0.4 /100WBC (0.0-0.2); Neutrophils Absolute Auto 1.7 x10*3/uL (2.0-8.3); Platelet Count 173 X10*3/uL (160-400); Red Blood Count 3.35 X10*6/uL (4.60-5.80); Red Cell Distribution Width 20.1 % (11.0-16.0); White Blood Count 4.8 X10*3/uL (4.8-10.8)
[2022-05-20 08:33] LABS: INTERNATIONAL NORM RATIO 2.4 (0.9-1.1); Prothrombin Time 27.5 SEC (9.9-13.0)
[2022-05-20 08:46] LABS: Anion Gap 13 (12-20); Blood Urea Nitrogen 32 mg/dL (9-16); Carbon Dioxide 27 mmol/L (22-29); Chloride 105 mmol/L (96-108); Estimated Glomerular Filt Rate > 60; Potassium 4.6 mmol/L (3.3-5.1); Sodium 140 mmol/L (135-145)
== END 2022-05-20 07:39 | disposition home or self-care (01) ==
LOC: HO.LAB 07:38
PROVIDERS: Visit Provider Family Medicine
DX: Z13.89 Encounter for screening for other disorder (principal)
CPT/HCPCS: 36415; 80051; 82565; 84520; 85025; 85610

== ENCOUNTER → 2022-06-06 13:21 | Outpatient (BNVA) | payer MEDICARE, OTHER, SELFPAY | PROVIDERS: PCP Family Medicine; Visit Provider Orthopaedic Surgery | DX: M17.0 Bilateral primary osteoarthritis of knee (principal) | CPT/HCPCS: 20610; 99212; J1100 ==

== ENCOUNTER 2022-06-10 16:57 | Emergency (ER) | payer MEDICARE, OTHER, SELFPAY ==
[2022-06-10] VITALS (7 sets, daily range): BP systolic 101–125; BP diastolic 36–56; PULSE 57–65; RESP 10–16; TEMP 36.2–36.7; O2SAT 96–99; BMI 29.1
--- NOTE | ~2022-06-10 | CT_ITS ---
EXAMINATION: CT HEAD WITHOUT CONTRAST CLINICAL INFORMATION: Dizziness. Weakness. Syncope. COMPARISON: CT head 06/26/2014 TECHNIQUE: Contiguous axial imaging was performed from the skull base to vertex without intravenous administration of contrast. This CT examination was performed using dose optimization techniques as appropriate, variously including the following: *Automated exposure control *Adjustment of mA and/or kV according to patient size (this includes techniques or standardized protocols for targeted exams where dose is matched to indication/reason for exam; i.e. extremities or head) *Use of iterative reconstruction technique DLP: 774 mGy-cm FINDINGS: There is no evidence of acute intracranial hemorrhage or territorial infarction. No abnormal mass effect or midline shift is seen. Garrett to white matter differentiation is well preserved. No extra-axial fluid collections are identified. The ventricles are normal in size. There is no abnormal attenuation within the brain parenchyma. The osseous structures and soft tissues are normal. The mastoid air cells and visualized portions of the paranasal sinuses are well aerated. Prosthesis in the right orbit. CT/CT head/brain wo con IMPRESSION: No acute intracranial pathology.
--- NOTE | ~2022-06-10 | XR_ITS ---
EXAMINATION: XR CHEST CLINICAL INFORMATION: Dizziness and general weakness COMPARISON: Chest x-ray 11/02/2021 TECHNIQUE: Frontal view of the chest was obtained. FINDINGS: Slight elevation of the left hemidiaphragm. No airspace consolidation, pleural effusion, or pneumothorax. Mild enlargement of the cardiac silhouette. Slight prominence of the central pulmonary vascularity. No evidence pulmonary edema. Status post median sternotomy and aortic valve replacement. No acute osseous injury. Chronic/healed right posterolateral seventh rib fracture noted. XR/XR chest 1V IMPRESSION: 1. No acute pulmonary process.
--- NOTE | 2022-06-10 17:39 | ECG_ITS ---
Test Reason : weakness Blood Pressure : / mmHG Vent. Rate : 063 BPM Atrial Rate : 094 BPM P-R Int : 000 ms QRS Dur : 138 ms QT Int : 456 ms P-R-T Axes : 000 -26 078 degrees QTc Int : 466 ms Atrial fibrillation Left ventricular hypertrophy with QRS widening ( R in aVL , Palm product ) Abnormal ECG When compared with ECG of 02-NOV-2021 09:56, QRS duration has increased Referred By: Yadi Baltazar Electronically Signed By:MARITO BRANHAM MD
--- NOTE | 2022-06-10 17:44 | ED.DIZZY ---
HPI - Dizziness General Chief Complaint: Weakness Stated Complaint: headache, fainting Time Seen by Provider: 06/10/22 17:30 Source: patient and family ( at bedside ) Mode of arrival: ambulatory Limitations: no limitations History of Present Illness HPI Narrative: 85-year-old male with history of mechanical aortic valve on Coumadin, paroxysmal atrial fibrillation, AVR, HTN, anemia, BPH and osteoarthritis who presents to the ER with complaints of general weakness, near syncopal episodes and dizziness x 1 week worse today. Patient reports that his dizziness episodes last for about 3 minutes and resolve on their own. He denies loss of consciousness, recent falls or head trauma. He denies any chest pain, or shortness of breath. He performs deep breathing exercises during these dizzy spells and starts to feel better. Denies any palpitations, fevers, chills, nausea, vomiting, diarrhea, abdominal pain, urinary or bowel symptoms. He believes that his symptoms may be attributed to dehydration as he believes that he has not been drinking enough fluids lately. He otherwise denies any other complaints or concerns at this time. MD elicited complaint: dizziness, lightheadedness and near syncope Onset (ago): week(s) (1) Timing: gradual onset and constant Severity: mild Description: lightheadedness History of similar symptoms: No Exacerbating factors: movement/ambulation and standing Relieving factors: nothing Associated symptoms: weakness Related Data Home Medications Medication Instructions Recorded Confirmed acebutolol 200 mg capsule 200 mg PO BEDTIME 04/17/21 11/02/21 acebutolol 200 mg capsule 400 mg PO DAILY 04/17/21 11/02/21 doxazosin 4 mg tablet 1 tab PO DAILY 04/17/21 11/02/21 finasteride 5 mg tablet 5 mg PO BEDTIME 04/17/21 11/02/21 furosemide 80 mg tablet 1 tab PO QAM 04/17/21 11/02/21 lisinopril 20 mg tablet 20 mg PO DAILY 04/17/21 11/02/21 rosuvastatin 40 mg tablet 1 tab PO DAILY 04/17/21 11/02/21 potassium chloride 20 mEq 20 meq PO DAILY 07/19/21 11/02/21 tablet,extended release(part/cryst) (Klor-Con M) spironolactone 25 mg tablet 25 mg PO QAM 07/19/21 11/02/21 celecoxib 200 mg capsule 1 cap PO DAILY 11/02/21 11/02/21 warfarin 4 mg tablet 4 mg PO DAILY@1800 11/02/21 11/02/21 Previous Rx's Medication Instructions Recorded dexamethasone 6 mg tablet 6 mg PO DAILY #5 tabs 11/07/21 Allergies Allergy/AdvReac Type Severity Reaction Status Date / Time adhesive [ADHESIVE] Allergy Intermediate RASH, Verified 06/06/22 13:34 BLISTERS atenolol [Atenolol] Allergy Mild RASH Verified 06/06/22 13:34 sotalol [Sotalol] Allergy Mild RASH Verified 06/06/22 13:34 atorvastatin [From Lipitor] AdvReac Mild SEVERE Verified 06/06/22 13:34 ACHES AND PAINS Review of Systems Review of Systems: Constitutional : No Fever, No Chills, No Night Sweats, No Fatigue, No Malaise ENT/Mouth : No Ear Pain, No Nasal Congestion, No Sinus Pain, No sore throat, No Rhinorrhea Eyes: No Eye Pain, No Swelling, No Redness, No Foreign Body, No Discharge, No Vision Changes Cardiovascular : No Chest Pain, No SOB, No Dyspnea on Exertion, No Orthopnea, No Palpitations Respiratory : No Cough, No Sputum, No Wheezing, No Dyspnea Gastrointestinal : No Nausea, No Vomiting, No Diarrhea, No Constipation, No abdominal Pain, No Hematochezia, No Melena Genitourinary : No Dysuria, No Urinary Frequency, No Urinary Incontinence, No Urgency, No Flank Pain Musculoskeletal : No joint pain, No Myalgias Skin : No lacerations Neuro : No Focal weakness, + general weakness, No Numbness, No Paresthesias, No Loss of Consciousness, + Dizziness, No Headache Yes all other systems are reviewed and are negative [facility] Past Medical History Attestation statement: The following information was validated with the patient. Source: old records reviewed, obtained from family and nursing notes reviewed Medical History Atrial fibrillation HTN (hypertension) Surgical History Aortic valve replaced History of cholecystectomy Social History Social History Household Members: Spouse Housing: House Do you presently have visiting nurse or other home services: No Alcohol intake: never Patient Tobacco Use Status: Never used Tobacco Use of substances other than those prescribed or required for medical reasons: No Advance Directives: No Advance Directives Information Provided: No service: No Current occupational status: retired Physical Exam Vital Signs: Vital Signs: Last Vital Signs Temp 97.8 F 06/10/22 21:05 Pulse 57 06/10/22 21:05 Resp 16 06/10/22 21:05 BP 122/36 L 06/10/22 21:05 Pulse Ox 97 06/10/22 21:05 O2 Del Method 06/10/22 21:05 BMI result Body Mass Index 29.1 Vital signs have been reviewed as normal and appeared to be correct. Blood pressure 106/48. Heart rate normal. Respiration rate normal. Temperature normal. Oxygen saturation normal. Appearance: Alert. Oriented X3. No acute distress. Head: Normal external exam. Normocephalic. Atraumatic. Able to rotate head bilaterally. Eyes: PERRLA. EOMI. No nystagmus noted. Conjunctiva and sclera normal. Eyelids normal. Corneal reflex normal. ENT: EAC normal. TM's Normal. Hearing normal. Pharynx normal. Uvula midline. tongue midline. Moist mucous membranes. No trismus noted. No drooling noted. No muffled voice noted. No nystagmus noted. Neck: Normal inspection. Neck supple. FROM. No adenopathy. Trachea midline. Thyroid Normal. No meningeal signs. No neck mass noted. CVS: Harsh, mechanical click murmur, consistant with mechanical prosthetic valve. Normal heart rate and rhythm. Heart sound normal. No murmurs noted. Pulses normal throughout. Respiratory: No respiratory distress. Painless inspiration. Breath sounds normal. No wheezes/rales/rhonchi noted. Chest nontender. No accessory muscle usage noted or decreased air movement noted. Abdomen: Soft and nontender. Bowel sounds normal in all 4 quadrants. No distention noted. No organomegaly noted. No visible injury noted. Back: No CVA tenderness. Full range of motion noted. Skin: Skin warm and dry. Normal skin color. Normal skin turgor. No rashes/lesions/lacerations noted. Extremities: No lower extremity edema. Extremities exhibit normal range of motion. Extremities nontender. Able to shrug shoulders bilaterally and keep up against resistance. Neuro: Oriented X 3. No motor deficit. No sensory deficit. Reflexes normal. Moving all extremities. No focal motor deficits. Cranial nerves II-XI intact bilaterally. Facial strength normal. Normal cognition. Speech normal. Gait normal. Strength 5/5 throughout. No pronator drift. No tremor noted. No fasciculations noted. No rigidity noted. Muscle tone normal throughout. No asterixis noted. [id number] test normal. Heel to baker test normal. Tandem gait normal. Does not sway with eyes open. Romberg test negative. Rapid alternating movement upper extremity normal. Rapid alternating movement lower extremity normal. Hand drop from overhead Misses face. NIHSS score 0. Course Course Course Narrative: 1729 85-year-old male with history of mechanical aortic valve on Coumadin, paroxysmal atrial fibrillation, AVR, HTN, anemia, BPH and osteoarthritis who presents to the ER with complaints of general weakness, near syncopal episodes and dizziness x 1 week worse today. Patient is mildly hypotensive at 106/48, otherwise other vital signs are within normal limits. Plan: Labs, CT head, chest x-ray, EKG ordered. Patient medicated with 1 L of IV fluids. Reevaluation(s) Reevaluation #1: Labs reviewed, H&H 10.0/29.8, around patient's baseline. Coagulation studies within normal limits secondary to patient's mechanical valve. Creatinine elevated at 1.68 with a BUN at 36. Troponin at 33 will repeat at 2030 to trend. Another Liter of IV fluids administered to patient. Head CT and chest x-ray is normal. Vital signs remained stable, patient is still hypotensive at 101/55. Patient remains comfortable and asymptomatic. Time: 19:13 Reevaluation #2: Repeat BUN/creatinine improved when compared to prior now at 34/1.49. Patient reports he feels completely better does not have any more dizziness. We did ask for a urine although patient reports that he would rather just leave he does not have a urinary tract infection he has been urinating normally. Repeat troponin negative delta. Therefore at this time instructed patient to have repeat BUN/creatinine/blood work this week by his PCP and to increase his water intake and to return if any new or worsening symptoms. Patient understands agrees with this plan with at bedside Time: 22:11 [facility] - Dizziness Medical Records Attestation: I reviewed the patient's medical records. Lab Data Attestation: I reviewed the patient's lab results. Result diagrams: 06/10/22 18:00 06/10/22 21:37 Labs: Lab Results 06/10/22 06/10/22 06/10/22 Range/Units 18:00 18:00 18:00 WBC 7.3 (4.8-10.8) X10*3/uL RBC 3.17 L (4.60-5.80) X10*6/uL Hgb 10.0 L (14.0-18.0) g/dl Hct 29.8 L (42.0-52.0) % MCV 94.0 (80.0-98.0) fL MCH 31.5 (27.0-33.0) pg MCHC 33.6 (31.0-36.0) g/dl RDW 19.8 H (11.0-16.0) % Plt Count 155 L (160-400) X10*3/uL MPV 11.8 (9.4-12.4) fL Immature Gran % (Auto) 1.0 H (0.0-0.4) % Neut % (Auto) 47.8 (45-73) % Lymph % (Auto) 26.7 (20-40) % Benton % (Auto) 22.9 H (2-11) % Eos % (Auto) 1.2 (0-4) % Baso % (Auto) 0.4 (0-2) % Lymph # (Auto) 2.0 (1.2-4.9) X10*3/uL Benton # (Auto) 1.7 H (0.1-1.2) X10*3/uL Eos # (Auto) 0.1 (0.0-0.4) X10*3/uL Baso # (Auto) 0.0 (0.0-0.2) X10*3/uL Abs Immat Gran (auto) 0.07 H (0.00-0.03) X10*3/uL Absolute Neuts (auto) 3.5 (2.0-8.3) x10*3/uL Absolute Nucleated RBC 0.000 (0.0-0.012) X10*3/uL Nucleated RBC % (auto) 0.0 (0.0-0.2) /100WBC Smear Tech's Comments VERIFIED PT 25.6 H (10.0-13.1) SEC INR 2.2 H (0.9-1.1) Sodium 138 (135-145) mmol/L Potassium 3.7 (3.3-5.1) mmol/L Chloride 102 (96-108) mmol/L Carbon Dioxide 25 (22-29) mmol/L Anion Gap 15 (12-20) BUN 36 H (9-16) mg/dL Creatinine 1.68 H (0.5-1.4) mg/dL Estim Creat Clear Calc 44.8 Estimated GFR 39 POC Glucose (60-115) mg/dL Random Glucose 113 (60-115) mg/dL Calcium 8.5 (8.4-10.2) mg/dL Magnesium 2.2 (1.6-2.6) mg/dL Total Bilirubin 0.8 (0.0-1.0) mg/dL Direct Bilirubin 0.4 (0.0-0.5) mg/dL AST 30 D (5-37) U/L ALT 20 (0-40) U/L Alkaline Phosphatase 48 (39-117) U/L Troponin I High Sens (<3.5-35.0) ng/L B-Natriuretic Peptide (<100) pg/mL Total Protein 6.5 (6.5-8.0) g/dL Albumin 4.3 D (3.5-5.0) g/dL TSH (0.32-4.0) uIU/mL COVID-19 ([facility]) COVID-19 Clin Com 06/10/22 06/10/22 06/10/22 Range/Units 18:00 18:00 18:00 WBC (4.8-10.8) X10*3/uL RBC (4.60-5.80) X10*6/uL Hgb (14.0-18.0) g/dl Hct (42.0-52.0) % MCV (80.0-98.0) fL MCH (27.0-33.0) pg MCHC (31.0-36.0) g/dl RDW (11.0-16.0) % Plt Count (160-400) X10*3/uL MPV (9.4-12.4) fL Immature Gran % (Auto) (0.0-0.4) % Neut % (Auto) (45-73) % Lymph % (Auto) (20-40) % Benton % (Auto) (2-11) % Eos % (Auto) (0-4) % Baso % (Auto) (0-2) % Lymph # (Auto) (1.2-4.9) X10*3/uL Benton # (Auto) (0.1-1.2) X10*3/uL Eos # (Auto) (0.0-0.4) X10*3/uL Baso # (Auto) (0.0-0.2) X10*3/uL Abs Immat Gran (auto) (0.00-0.03) X10*3/uL Absolute Neuts (auto) (2.0-8.3) x10*3/uL Absolute Nucleated RBC (0.0-0.012) X10*3/uL Nucleated RBC % (auto) (0.0-0.2) /100WBC Smear Tech's Comments PT (10.0-13.1) SEC INR (0.9-1.1) Sodium (135-145) mmol/L Potassium (3.3-5.1) mmol/L Chloride (96-108) mmol/L Carbon Dioxide (22-29) mmol/L Anion Gap (12-20) BUN (9-16) mg/dL Creatinine (0.5-1.4) mg/dL Estim Creat Clear Calc Estimated GFR POC Glucose (60-115) mg/dL Random Glucose (60-115) mg/dL Calcium (8.4-10.2) mg/dL Magnesium (1.6-2.6) mg/dL Total Bilirubin (0.0-1.0) mg/dL Direct Bilirubin (0.0-0.5) mg/dL AST (5-37) U/L ALT (0-40) U/L Alkaline Phosphatase (39-117) U/L Troponin I High Sens 33.0 (<3.5-35.0) ng/L B-Natriuretic Peptide (<100) pg/mL Total Protein (6.5-8.0) g/dL Albumin (3.5-5.0) g/dL TSH 1.35 (0.32-4.0) uIU/mL COVID-19 ([facility]) Cancelled COVID-19 Clin Com Cancelled 06/10/22 06/10/22 06/10/22 Range/Units 18:36 19:28 19:28 WBC (4.8-10.8) X10*3/uL RBC (4.60-5.80) X10*6/uL Hgb (14.0-18.0) g/dl Hct (42.0-52.0) % MCV (80.0-98.0) fL MCH (27.0-33.0) pg MCHC (31.0-36.0) g/dl RDW (11.0-16.0) % Plt Count (160-400) X10*3/uL MPV (9.4-12.4) fL Immature Gran % (Auto) (0.0-0.4) % Neut % (Auto) (45-73) % Lymph % (Auto) (20-40) % Benton % (Auto) (2-11) % Eos % (Auto) (0-4) % Baso % (Auto) (0-2) % Lymph # (Auto) (1.2-4.9) X10*3/uL Benton # (Auto) (0.1-1.2) X10*3/uL Eos # (Auto) (0.0-0.4) X10*3/uL Baso # (Auto) (0.0-0.2) X10*3/uL Abs Immat Gran (auto) (0.00-0.03) X10*3/uL Absolute Neuts (auto) (2.0-8.3) x10*3/uL Absolute Nucleated RBC (0.0-0.012) X10*3/uL Nucleated RBC % (auto) (0.0-0.2) /100WBC Smear Tech's Comments PT (10.0-13.1) SEC INR (0.9-1.1) Sodium (135-145) mmol/L Potassium (3.3-5.1) mmol/L Chloride (96-108) mmol/L Carbon Dioxide (22-29) mmol/L Anion Gap (12-20) BUN (9-16) mg/dL Creatinine (0.5-1.4) mg/dL Estim Creat Clear Calc Estimated GFR POC Glucose 98 (60-115) mg/dL Random Glucose (60-115) mg/dL Calcium (8.4-10.2) mg/dL Magnesium (1.6-2.6) mg/dL Total Bilirubin (0.0-1.0) mg/dL Direct Bilirubin (0.0-0.5) mg/dL AST (5-37) U/L ALT (0-40) U/L Alkaline Phosphatase (39-117) U/L Troponin I High Sens 26.8 (<3.5-35.0) ng/L B-Natriuretic Peptide 77 (<100) pg/mL Total Protein (6.5-8.0) g/dL Albumin (3.5-5.0) g/dL TSH (0.32-4.0) uIU/mL COVID-19 ([facility]) COVID-19 Clin Com 06/10/22 06/10/22 06/10/22 Range/Units 19:31 21:37 21:37 WBC (4.8-10.8) X10*3/uL RBC (4.60-5.80) X10*6/uL Hgb (14.0-18.0) g/dl Hct (42.0-52.0) % MCV (80.0-98.0) fL MCH (27.0-33.0) pg MCHC (31.0-36.0) g/dl RDW (11.0-16.0) % Plt Count (160-400) X10*3/uL MPV (9.4-12.4) fL Immature Gran % (Auto) (0.0-0.4) % Neut % (Auto) (45-73) % Lymph % (Auto) (20-40) % Benton % (Auto) (2-11) % Eos % (Auto) (0-4) % Baso % (Auto) (0-2) % Lymph # (Auto) (1.2-4.9) X10*3/uL Benton # (Auto) (0.1-1.2) X10*3/uL Eos # (Auto) (0.0-0.4) X10*3/uL Baso # (Auto) (0.0-0.2) X10*3/uL Abs Immat Gran (auto) (0.00-0.03) X10*3/uL Absolute Neuts (auto) (2.0-8.3) x10*3/uL Absolute Nucleated RBC (0.0-0.012) X10*3/uL Nucleated RBC % (auto) (0.0-0.2) /100WBC Smear Tech's Comments PT (10.0-13.1) SEC INR (0.9-1.1) Sodium 139 (135-145) mmol/L Potassium 4.1 (3.3-5.1) mmol/L Chloride 105 (96-108) mmol/L Carbon Dioxide 27 (22-29) mmol/L Anion Gap 11 L (12-20) BUN 34 H (9-16) mg/dL Creatinine 1.49 H (0.5-1.4) mg/dL Estim Creat Clear Calc 50.6 Estimated GFR 45 POC Glucose (60-115) mg/dL Random Glucose 98 (60-115) mg/dL Calcium 8.1 L (8.4-10.2) mg/dL Magnesium (1.6-2.6) mg/dL Total Bilirubin (0.0-1.0) mg/dL Direct Bilirubin (0.0-0.5) mg/dL AST (5-37) U/L ALT (0-40) U/L Alkaline Phosphatase (39-117) U/L Troponin I High Sens 25.6 (<3.5-35.0) ng/L B-Natriuretic Peptide (<100) pg/mL Total Protein (6.5-8.0) g/dL Albumin (3.5-5.0) g/dL TSH (0.32-4.0) uIU/mL COVID-19 ([facility]) Negative COVID-19 Clin Com See Note Imaging Data Chest x-ray: Attestation: I personally reviewed and interpreted this imaging study as follows: Radiologist's impression: EXAMINATION: XR CHEST CLINICAL INFORMATION: Dizziness and general weakness COMPARISON: Chest x-ray 11/02/2021 TECHNIQUE: Frontal view of the chest was obtained. FINDINGS: Slight elevation of the left hemidiaphragm. No airspace consolidation, pleural effusion, or pneumothorax. Mild enlargement of the cardiac silhouette. Slight prominence of the central pulmonary vascularity. No evidence pulmonary edema. Status post median sternotomy and aortic valve replacement. No acute osseous injury. Chronic/healed right posterolateral seventh rib fracture noted. XR/XR chest 1V IMPRESSION: ? 1. No acute pulmonary process. ? CT scan - head: Attestation: I personally reviewed and interpreted this imaging study as follows: Radiologist's impression: EXAMINATION: CT HEAD WITHOUT CONTRAST CLINICAL INFORMATION: Dizziness. Weakness. Syncope.? COMPARISON: CT head 06/26/2014 TECHNIQUE: Contiguous axial imaging was performed from the skull base to vertex without intravenous administration of contrast. This CT examination was performed using dose optimization techniques as appropriate, variously including the following: *Automated exposure control *Adjustment of mA and/or kV according to patient size (this includes techniques or standardized protocols for targeted exams where dose is matched to indication/reason for exam; i.e. extremities or head) *Use of iterative reconstruction technique DLP: 774 mGy-cm FINDINGS: There is no evidence of acute intracranial hemorrhage or territorial infarction. No abnormal mass effect or midline shift is seen. Garrett to white matter differentiation is well preserved. No extra-axial fluid collections are identified. The ventricles are normal in size. There is no abnormal attenuation within the brain parenchyma. The osseous structures and soft tissues are normal. The mastoid air cells and visualized portions of the paranasal sinuses are well aerated. Prosthesis in the right orbit. ? CT/CT head/brain wo con IMPRESSION: No acute intracranial pathology. ECG Data Attestation: I personally reviewed and interpreted this ECG as follows: ECG interpretation date: 06/10/22 ECG interpretation time: 18:43 Prior ECG tracings: available for review Interpretation: EKG in rate controlled atrial fibrillation, at a ventricular rate of 63 beats per minute, QRS 138ms, QT/ QTC 456/466ms. No ST elevations or depressions. Similar compared to prior EKG 11/02/2021 Critical Care Time Critical Care Time Critical Care Time: Yes Total Critical Care Time: 60 Attestation: I personally attest to this time spent taking care of the patient Discharge Plan Discharge Clinical Impression: VIRGEN (acute kidney injury) Patient Disposition: Home, Self-Care Additional Instructions: You should increase her water intake. Limit your salt intake. Follow up with her primary care provider and have repeat kidney function blood tests within 1 week. If you develop any abdominal pain, back pain, fevers or any difficulty urinating you need to return immediately. Or Return if any new or worsening symptoms. Prescriptions: No Action lisinopril 20 mg tablet 20 mg PO DAILY Hold Instructions: Resume on 04/23/21. furosemide 80 mg tablet 1 tab PO QAM doxazosin 4 mg tablet 1 tab PO DAILY acebutolol 200 mg capsule 400 mg PO DAILY finasteride 5 mg tablet 5 mg PO BEDTIME rosuvastatin 40 mg tablet 1 tab PO DAILY acebutolol 200 mg capsule 200 mg PO BEDTIME celecoxib 200 mg capsule 1 cap PO DAILY warfarin 4 mg tablet 4 mg PO DAILY@1800 dexamethasone 6 mg tablet 6 mg PO DAILY Qty: 5 0RF potassium chloride [Klor-Con M20] 20 mEq tablet,ER particles/crystals 20 meq PO DAILY spironolactone 25 mg tablet 25 mg PO QAM Referrals: Milton Durán MD [Primary Care Provider] - 2 days (Repeat labs for patient's BUN and creatinine due to VIRGEN) Print Language: Sami
[2022-06-10] MEDS: 0.9 % Sodium Chloride 1,000 ML 999 ML IVCONT ×2 (18:09→20:02)
[2022-06-10 18:13] LABS: INTERNATIONAL NORM RATIO 2.2 (0.9-1.1); Prothrombin Time 25.6 SEC (10.0-13.1)
[2022-06-10 18:24] LABS: Basophils Percent Auto 0.4 % (0-2); Eosinophils Absolute Auto 0.1 X10*3/uL (0.0-0.4); Eosinophils Percent Auto 1.2 % (0-4); Hematocrit 29.8 % (42.0-52.0); Imm Gran Abs Auto 0.07 X10*3/uL (0.00-0.03); Lymphocytes Percent Auto 26.7 % (20-40); MANUAL DIFF FLAG SCAN; Mean Corpuscular HGB Conc 33.6 g/dl (31.0-36.0); Mean Corpuscular Hemoglobin 31.5 pg (27.0-33.0); Mean Platelet Volume 11.8 fL (9.4-12.4); Monocytes Absolute Auto 1.7 X10*3/uL (0.1-1.2); Monocytes Percent Auto 22.9 % (2-11); Neutrophils Absolute Auto 3.5 x10*3/uL (2.0-8.3); Neutrophils Percent Auto 47.8 % (45-73); Platelet Count 155 X10*3/uL (160-400); Red Blood Count 3.17 X10*6/uL (4.60-5.80); Red Cell Distribution Width 19.8 % (11.0-16.0); SCAN SMEAR FLAG 1; White Blood Count 7.3 X10*3/uL (4.8-10.8)
[2022-06-10 18:25] LABS: Alanine Aminotransferase 20 U/L (0-40); Albumin Level 4.3 g/dL (3.5-5.0); Alkaline Phosphatase 48 U/L (39-117); Anion Gap 15 (12-20); Aspartate Amino Transferase 30 U/L (5-37); Bilirubin Direct 0.4 mg/dL (0.0-0.5); Bilirubin Total 0.8 mg/dL (0.0-1.0); Blood Urea Nitrogen 36 mg/dL (9-16); Calcium 8.5 mg/dL (8.4-10.2); Carbon Dioxide 25 mmol/L (22-29); Chloride 102 mmol/L (96-108); Creatinine Clr Calc Pharmacy 44.8; Estimated Glomerular Filt Rate 39; Glucose Random 113 mg/dL (60-115); Magnesium 2.2 mg/dL (1.6-2.6); Potassium 3.7 mmol/L (3.3-5.1); Sodium 138 mmol/L (135-145); Total Protein 6.5 g/dL (6.5-8.0)
[2022-06-10 18:43] LABS: TSH reflex Free T4 1.35 uIU/mL (0.32-4.0)
[2022-06-10 18:49] LABS: Glucose, Whole Blood 98 mg/dL (60-115)
[2022-06-10 18:51] LABS: SLIDE REVIEW VERIFIED
[2022-06-10 19:51] LABS: COVID-19 Test Negative (Negative); IDNOW Serial# 16C4AD1C
[2022-06-10 19:58] LABS: Troponin-I High Sensitivity 26.8 ng/L (<3.5-35.0)
[2022-06-10 19:59] LABS: B Type Natriuretic Peptide 77 pg/mL (<100)
[2022-06-10 22:02] LABS: Anion Gap 11 (12-20); Blood Urea Nitrogen 34 mg/dL (9-16); Calcium 8.1 mg/dL (8.4-10.2); Carbon Dioxide 27 mmol/L (22-29); Chloride 105 mmol/L (96-108); Creatinine Clr Calc Pharmacy 50.6; Estimated Glomerular Filt Rate 45; Glucose Random 98 mg/dL (60-115); Potassium 4.1 mmol/L (3.3-5.1); Sodium 139 mmol/L (135-145)
[2022-06-10 22:14] LABS: Troponin-I High Sensitivity 25.6 ng/L (<3.5-35.0)
== END 2022-06-10 22:31 | disposition home or self-care (01) ==
PROVIDERS: Physician Assistant Medical; Emergency Provider Internal Medicine; PCP Family Medicine
DX: R42 Dizziness and giddiness (principal); N17.9 Acute kidney failure, unspecified; R55 Syncope and collapse; R06.02 Shortness of breath; R53.1 Weakness; R51.9 Headache, unspecified; Z79.899 Other long term (current) drug therapy; Z79.4 Long term (current) use of insulin; Z20.822 Contact with and (suspected) exposure to COVID-19
CPT/HCPCS: 36415; 70450; 71045; 80048; 80076; 82947; 83735; 83880; 84443; 84484; 85025; 85610; 87635; 93005; 96360; 96361; 99284; 99285

== ENCOUNTER 2022-08-06 07:37 | Outpatient (REF) | payer MEDICARE, OTHER, SELFPAY ==
[2022-08-06 07:56] LABS: Basophils Percent Auto 0.7 % (0-2); Eosinophils Absolute Auto 0.1 X10*3/uL (0.0-0.4); Eosinophils Percent Auto 1.5 % (0-4); Hematocrit 30.2 % (42.0-52.0); Imm Gran Abs Auto 0.03 X10*3/uL (0.00-0.03); Imm Gran Pct Auto 0.5 % (0.0-0.4); Lymphocytes Absolute Auto 1.9 X10*3/uL (1.2-4.9); Lymphocytes Percent Auto 33.2 % (20-40); MANUAL DIFF FLAG SCAN; Mean Corpuscular HGB Conc 33.1 g/dl (31.0-36.0); Mean Corpuscular Hemoglobin 31.8 pg (27.0-33.0); Mean Corpuscular Volume 96.2 fL (80.0-98.0); Mean Platelet Volume 11.5 fL (9.4-12.4); Monocytes Absolute Auto 1.3 X10*3/uL (0.1-1.2); Monocytes Percent Auto 22.1 % (2-11); Neutrophils Absolute Auto 2.5 x10*3/uL (2.0-8.3); Platelet Count 192 X10*3/uL (160-400); Red Blood Count 3.14 X10*6/uL (4.60-5.80); Red Cell Distribution Width 18.6 % (11.0-16.0); SCAN SMEAR FLAG 1; White Blood Count 5.8 X10*3/uL (4.8-10.8)
[2022-08-06 08:01] LABS: INTERNATIONAL NORM RATIO 2.6 (0.9-1.1); Prothrombin Time 30.7 SEC (10.0-13.1)
[2022-08-06 08:15] LABS: SLIDE REVIEW VERIFIED
[2022-08-06 08:44] LABS: Anion Gap 16 (12-20); Blood Urea Nitrogen 34 mg/dL (9-16); Carbon Dioxide 26 mmol/L (22-29); Chloride 103 mmol/L (96-108); Estimated Glomerular Filt Rate 45; Magnesium 2.2 mg/dL (1.6-2.6); Potassium 4.3 mmol/L (3.3-5.1); Sodium 141 mmol/L (135-145)
== END 2022-08-06 07:38 | disposition home or self-care (01) ==
LOC: HO.LAB 07:37
PROVIDERS: PCP Family Medicine; Visit Provider Family Medicine
DX: I10 Essential (primary) hypertension (principal); D64.9 Anemia, unspecified
CPT/HCPCS: 36415; 80051; 82565; 83735; 84520; 85025; 85610

== ENCOUNTER → 2022-09-02 08:24 | Outpatient (BNVA) | payer MEDICARE, OTHER, SELFPAY | PROVIDERS: PCP Family Medicine; Visit Provider Orthopaedic Surgery | DX: M17.0 Bilateral primary osteoarthritis of knee (principal) | CPT/HCPCS: 20610; 99212; J1100 ==

== ENCOUNTER 2022-10-12 20:29 | Emergency (ER) | payer MEDICARE, OTHER, SELFPAY ==
--- NOTE | ~2022-10-12 | XR_ITS ---
EXAMINATION: XR chest 1V CLINICAL INFORMATION: Reason for Exam CHEST HEAVINESS COMPARISON: Prior chest x-ray 06/10/2022 TECHNIQUE: XR chest 1V Tubes and lines: None Lungs and pleura: No radiographic evidence of acute infiltrates or failure. Heart and mediastinum: Sternotomy wires are stable. The mediastinum is within normal limits.. Bones/soft tissue: Skeletal structures included are normal for patient's age. XR/XR chest 1V IMPRESSION: No radiographic evidence of acute cardiopulmonary disease.
[2022-10-12 20:36] VITALS: BP 124/53; PULSE 63; RESP 18; TEMP 36.6; O2SAT 95; BMI 29.7
--- NOTE | 2022-10-12 20:40 | ECG_ITS ---
Test Reason : SOB Blood Pressure : / mmHG Vent. Rate : 064 BPM Atrial Rate : 000 BPM P-R Int : 000 ms QRS Dur : 118 ms QT Int : 440 ms P-R-T Axes : 000 -14 062 degrees QTc Int : 453 ms Atrial fibrillation Non-specific intra-ventricular conduction delay Nonspecific ST and T wave abnormality Abnormal ECG When compared with ECG of 10-JUN-2022 18:43, No significant change was found Referred By: Generic ED Physician Electronically Signed By:JUDITH CARVALHO MD
[2022-10-12 21:46] LABS: MANUAL DIFF FLAG NO
[2022-10-12 21:50] LABS: Basophils Percent Auto 0.4 % (0-2); Eosinophils Absolute Auto 0.2 X10*3/uL (0.0-0.4); Eosinophils Percent Auto 2.5 % (0-4); Hematocrit 28.8 % (42.0-52.0); Hemoglobin 9.4 g/dl (14.0-18.0); Imm Gran Abs Auto 0.09 X10*3/uL (0.00-0.03); Imm Gran Pct Auto 1.2 % (0.0-0.4); Lymphocytes Absolute Auto 1.9 X10*3/uL (1.2-4.9); Lymphocytes Percent Auto 25.7 % (20-40); Mean Corpuscular HGB Conc 32.6 g/dl (31.0-36.0); Mean Corpuscular Hemoglobin 31.4 pg (27.0-33.0); Mean Corpuscular Volume 96.3 fL (80.0-98.0); Mean Platelet Volume 11.1 fL (9.4-12.4); Monocytes Absolute Auto 2.2 X10*3/uL (0.1-1.2); Monocytes Percent Auto 30.9 % (2-11); NRBC Pct Auto 0.3 /100WBC (0.0-0.2); Neutrophils Absolute Auto 2.8 x10*3/uL (2.0-8.3); Neutrophils Percent Auto 39.3 % (45-73); Platelet Count 148 X10*3/uL (160-400); Red Blood Count 2.99 X10*6/uL (4.60-5.80); Red Cell Distribution Width 20.4 % (11.0-16.0); SCAN SMEAR FLAG 1; White Blood Count 7.2 X10*3/uL (4.8-10.8)
[2022-10-12 22:07] LABS: Anion Gap 16 (12-20); Blood Urea Nitrogen 27 mg/dL (9-16); Calcium 8.8 mg/dL (8.4-10.2); Carbon Dioxide 28 mmol/L (22-29); Chloride 102 mmol/L (96-108); Creatinine Clr Calc Pharmacy 55.5; Estimated Glomerular Filt Rate 49; Glucose Random 99 mg/dL (60-115); Sodium 142 mmol/L (135-145)
[2022-10-12 22:09] LABS: Troponin-I High Sensitivity 32.8 ng/L (<3.5-35.0)
[2022-10-12 22:35] LABS: Influenza A PCR NEGATIVE (Negative); Influenza B PCR NEGATIVE (Negative); Resp Syncy Virus RNA Qual PCR NEGATIVE (Negative); SARS COV2 PCR INHOUSE NEGATIVE (Negative)
--- NOTE | 2022-10-12 23:40 | ED.SOB ---
HPI - SOB/Dyspnea General Chief Complaint: Dyspnea Stated Complaint: heavy breathing, cold, SOB Time Seen by Provider: 10/12/22 23:17 Source: patient Mode of arrival: ambulatory History of Present Illness HPI Narrative: 86-year-old male presents with persistent cough since Friday without fever or chills and he states that the cough has now created diffuse chest wall pain that is worse with the cough, no worsening of lower extremity swelling or increase orthopnea. He denies any fever, chills or GI/ symptoms. Related Data Home Medications Medication Instructions Recorded Confirmed acebutolol 200 mg capsule 200 mg PO BEDTIME 04/17/21 11/02/21 acebutolol 200 mg capsule 400 mg PO DAILY 04/17/21 11/02/21 doxazosin 4 mg tablet 1 tab PO DAILY 04/17/21 11/02/21 finasteride 5 mg tablet 5 mg PO BEDTIME 04/17/21 11/02/21 furosemide 80 mg tablet 1 tab PO QAM 04/17/21 11/02/21 lisinopril 20 mg tablet 20 mg PO DAILY 04/17/21 11/02/21 rosuvastatin 40 mg tablet 1 tab PO DAILY 04/17/21 11/02/21 potassium chloride 20 mEq 20 meq PO DAILY 07/19/21 11/02/21 tablet,extended release(part/cryst) (Klor-Con M) spironolactone 25 mg tablet 25 mg PO QAM 07/19/21 11/02/21 celecoxib 200 mg capsule 1 cap PO DAILY 11/02/21 11/02/21 warfarin 4 mg tablet 4 mg PO DAILY@1800 11/02/21 11/02/21 Previous Rx's Medication Instructions Recorded dexamethasone 6 mg tablet 6 mg PO DAILY #5 tabs 11/07/21 benzonatate 200 mg capsule 200 mg PO TID PRN cough #14 caps 10/12/22 Allergies Allergy/AdvReac Type Severity Reaction Status Date / Time adhesive [ADHESIVE] Allergy Intermediate RASH, Verified 10/12/22 20:40 BLISTERS atenolol [Atenolol] Allergy Mild RASH Verified 10/12/22 20:40 sotalol [Sotalol] Allergy Mild RASH Verified 10/12/22 20:40 atorvastatin [From Lipitor] AdvReac Mild SEVERE Verified 10/12/22 20:40 ACHES AND PAINS Review of Systems Review of Systems: Pertinent positives and negatives as stated in HPI 10 point review of systems is otherwise negative. [facility] Past Medical History Source: nursing notes reviewed Medical History Atrial fibrillation HTN (hypertension) Surgical History Aortic valve replaced History of cholecystectomy Social History Social History Household Members: Spouse Housing: House Do you presently have visiting nurse or other home services: No Alcohol intake: never Patient Tobacco Use Status: Never used Tobacco Advance Directives: No Advance Directives Information Provided: Yes service: No Current occupational status: retired Physical Exam Vital Signs: Vital Signs: Last Vital Signs Temp 98 F 10/12/22 20:36 Pulse 63 10/12/22 20:36 Resp 18 10/12/22 20:36 BP 124/53 L 10/12/22 20:36 Pulse Ox 95 10/12/22 20:36 O2 Del Method 10/12/22 20:36 BMI result Body Mass Index 29.7 VITAL SIGNS: Reviewed. GENERAL: Well developed, well nourished, in no acute distress. HEAD: Normocephalic/atraumatic EYES: PERRLA, EOMI EARS: Ext canals without abnormality OROPHARYNX: no oral lesions noted, posterior pharynx clear LUNGS: Normal breath sounds, no rales. No adventitious sounds or accessory muscle use. SpO2<95> CARDIOVASCULAR: Regular rate and rhythm with auscultated metallic valve, no JVD foot bilateral lower extremity 1 to 2+ pitting edema ABDOMEN: Soft, non-tender, non-distended with bowel sounds. MUSCULOSKELETAL: No tenderness, deformities, or effusions noted on gross inspection. EXTREMITIES: No cyanosis, clubbing or edema. SKIN: Inspection of the skin reveals no rashes NEUROLOGIC: Alert and oriented x 4. Strength and sensation to light touch were grossly intact x 4. Course Course Course Narrative: 86-year-old male with history and clinical presentation consistent with suspected viral infection but on review of all investigations there are no acute findings to suggest positivity for COVID/influenza/RSV. Patient has a chronically edematous lower extremities and no rales appreciated on auscultation no x-ray findings to suggest pulmonary overload. Patient did receive test will on medication for cough and will be discharged home with a prescription. He was also strongly encouraged to follow-up with his primary care provider on Friday morning. MDM - SOB/Dyspnea Lab Data Result diagrams: 10/12/22 21:41 10/12/22 21:41 Labs: Lab Results 10/12/22 10/12/22 10/12/22 Range/Units 21:41 21:41 21:41 WBC 7.2 (4.8-10.8) X10*3/uL RBC 2.99 L (4.60-5.80) X10*6/uL Hgb 9.4 L (14.0-18.0) g/dl Hct 28.8 L (42.0-52.0) % MCV 96.3 (80.0-98.0) fL MCH 31.4 (27.0-33.0) pg MCHC 32.6 (31.0-36.0) g/dl RDW 20.4 H (11.0-16.0) % Plt Count 148 L (160-400) X10*3/uL MPV 11.1 (9.4-12.4) fL Immature Gran % (Auto) 1.2 H (0.0-0.4) % Neut % (Auto) 39.3 L (45-73) % Lymph % (Auto) 25.7 (20-40) % [place] % (Auto) 30.9 H (2-11) % Eos % (Auto) 2.5 (0-4) % Baso % (Auto) 0.4 (0-2) % Lymph # (Auto) 1.9 (1.2-4.9) X10*3/uL [place] # (Auto) 2.2 H (0.1-1.2) X10*3/uL Eos # (Auto) 0.2 (0.0-0.4) X10*3/uL Baso # (Auto) 0.0 (0.0-0.2) X10*3/uL Abs Immat Gran (auto) 0.09 H (0.00-0.03) X10*3/uL Absolute Neuts (auto) 2.8 (2.0-8.3) x10*3/uL Absolute Nucleated RBC 0.020 H (0.0-0.012) X10*3/uL Nucleated RBC % (auto) 0.3 H (0.0-0.2) /100WBC Sodium 142 (135-145) mmol/L Potassium 4.0 (3.3-5.1) mmol/L Chloride 102 (96-108) mmol/L Carbon Dioxide 28 (22-29) mmol/L Anion Gap 16 (12-20) BUN 27 H (9-16) mg/dL Creatinine 1.37 (0.5-1.4) mg/dL Estim Creat Clear Calc 55.5 Estimated GFR 49 Random Glucose 99 (60-115) mg/dL Calcium 8.8 D (8.4-10.2) mg/dL Troponin I High Sens 32.8 (<3.5-35.0) ng/L Influenza Type A (NIKOS) Influenza Type A (PCR) (Negative) Influenza Type B (NIKOS) Influenza Type B (PCR) (Negative) Influenza A & B Note RSV RNA Qual (PCR) (Negative) SARS-CoV-2 RNA (RT-PCR) (Negative) 10/12/22 10/12/22 Range/Units 21:41 21:41 WBC (4.8-10.8) X10*3/uL RBC (4.60-5.80) X10*6/uL Hgb (14.0-18.0) g/dl Hct (42.0-52.0) % MCV (80.0-98.0) fL MCH (27.0-33.0) pg MCHC (31.0-36.0) g/dl RDW (11.0-16.0) % Plt Count (160-400) X10*3/uL MPV (9.4-12.4) fL Immature Gran % (Auto) (0.0-0.4) % Neut % (Auto) (45-73) % Lymph % (Auto) (20-40) % [place] % (Auto) (2-11) % Eos % (Auto) (0-4) % Baso % (Auto) (0-2) % Lymph # (Auto) (1.2-4.9) X10*3/uL [place] # (Auto) (0.1-1.2) X10*3/uL Eos # (Auto) (0.0-0.4) X10*3/uL Baso # (Auto) (0.0-0.2) X10*3/uL Abs Immat Gran (auto) (0.00-0.03) X10*3/uL Absolute Neuts (auto) (2.0-8.3) x10*3/uL Absolute Nucleated RBC (0.0-0.012) X10*3/uL Nucleated RBC % (auto) (0.0-0.2) /100WBC Sodium (135-145) mmol/L Potassium (3.3-5.1) mmol/L Chloride (96-108) mmol/L Carbon Dioxide (22-29) mmol/L Anion Gap (12-20) BUN (9-16) mg/dL Creatinine (0.5-1.4) mg/dL Estim Creat Clear Calc Estimated GFR Random Glucose (60-115) mg/dL Calcium (8.4-10.2) mg/dL Troponin I High Sens (<3.5-35.0) ng/L Influenza Type A (NIKOS) Cancelled Influenza Type A (PCR) NEGATIVE (Negative) Influenza Type B (NIKOS) Cancelled Influenza Type B (PCR) NEGATIVE (Negative) Influenza A & B Note Cancelled RSV RNA Qual (PCR) NEGATIVE (Negative) SARS-CoV-2 RNA (RT-PCR) NEGATIVE (Negative) ECG Data Attestation: I personally reviewed and interpreted this ECG as follows: Prior ECG tracings: available for review Interpretation: Atrial fibrillation, HR-64, no STEMI, QTC within normal limits. Discharge Plan Discharge Clinical Impression: Upper respiratory infection Patient Disposition: Home, Self-Care Instructions: Upper Respiratory Infection (ED) Additional Instructions: 1. Resume all home medications as prescribed. 2. You have been provided with a prescription for cough medication to help control your cough, this may 1-2 days to improve. 3. Please follow-up with primary care provider on Friday morning. Return to the ER for worsening symptoms. Prescriptions: New benzonatate 200 mg capsule 200 mg PO TID PRN (Reason: cough) Qty: 14 0RF No Action lisinopril 20 mg tablet 20 mg PO DAILY Hold Instructions: Resume on 04/23/21. furosemide 80 mg tablet 1 tab PO QAM doxazosin 4 mg tablet 1 tab PO DAILY acebutolol 200 mg capsule 400 mg PO DAILY finasteride 5 mg tablet 5 mg PO BEDTIME rosuvastatin 40 mg tablet 1 tab PO DAILY acebutolol 200 mg capsule 200 mg PO BEDTIME celecoxib 200 mg capsule 1 cap PO DAILY warfarin 4 mg tablet 4 mg PO DAILY@1800 dexamethasone 6 mg tablet 6 mg PO DAILY Qty: 5 0RF potassium chloride [Klor-Con M20] 20 mEq tablet,ER particles/crystals 20 meq PO DAILY spironolactone 25 mg tablet 25 mg PO QAM Referrals: Milton Durán MD [Primary Care Provider] -
[2022-10-13] MEDS: Benzonatate 100 MG CAPSULE 200 MG PO
--- NOTE | 2022-10-13 | PC.NURSE ---
pt states he has had post nasal drip and then he coughs. provider made aware. pt has no s/s of resp distress. abd discomfort from coughing.
--- NOTE | 2022-10-13 00:09 | PC.NURSE ---
provider informed pt to take claratin or flonase over the counter for the post nasal drip he has going on.
== END 2022-10-13 00:12 | disposition home or self-care (01) ==
PROVIDERS: Emergency Provider Student in an Organized Health Care Education/Training Program; PCP Family Medicine
DX: J06.9 Acute upper respiratory infection, unspecified (principal); R60.0 Localized edema; Z20.822 Contact with and (suspected) exposure to COVID-19; I10 Essential (primary) hypertension; I48.91 Unspecified atrial fibrillation; Z79.01 Long term (current) use of 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; Z79.899 Other long term (current) drug therapy
CPT/HCPCS: 0241U; 71045; 80048; 84484; 85025; 87502; 93005; 99283; 99284

== ENCOUNTER → 2022-12-05 08:21 | Outpatient (BNVA) | payer MEDICARE, OTHER, SELFPAY | PROVIDERS: PCP Family Medicine; Visit Provider Orthopaedic Surgery | DX: M17.0 Bilateral primary osteoarthritis of knee (principal) | CPT/HCPCS: 20610; 99212; J1100 ==

== ENCOUNTER 2023-02-24 10:43 | Outpatient (REF) | payer MEDICARE, OTHER, SELFPAY ==
[2023-02-24 11:44] LABS: Basophils Percent Auto 0.8 % (0-2); Eosinophils Absolute Auto 0.2 X10*3/uL (0.0-0.4); Eosinophils Percent Auto 3.6 % (0-4); Hematocrit 31.6 % (42.0-52.0); Hemoglobin 10.2 g/dl (14.0-18.0); Imm Gran Abs Auto 0.02 X10*3/uL (0.00-0.03); Imm Gran Pct Auto 0.4 % (0.0-0.4); Lymphocytes Absolute Auto 1.9 X10*3/uL (1.2-4.9); Lymphocytes Percent Auto 38.4 % (20-40); MANUAL DIFF FLAG SCAN; Mean Corpuscular HGB Conc 32.3 g/dl (31.0-36.0); Mean Corpuscular Hemoglobin 30.6 pg (27.0-33.0); Mean Corpuscular Volume 94.9 fL (80.0-98.0); Mean Platelet Volume 11.4 fL (9.4-12.4); Monocytes Absolute Auto 1.3 X10*3/uL (0.1-1.2); Monocytes Percent Auto 25.2 % (2-11); NRBC Pct Auto 0.6 /100WBC (0.0-0.2); Neutrophils Absolute Auto 1.6 x10*3/uL (2.0-8.3); Neutrophils Percent Auto 31.6 % (45-73); Platelet Count 159 X10*3/uL (160-400); Red Blood Count 3.33 X10*6/uL (4.60-5.80); Red Cell Distribution Width 22.4 % (11.0-16.0); SCAN SMEAR FLAG 1
[2023-02-24 11:47] LABS: INTERNATIONAL NORM RATIO 2.4 (0.9-1.1); Prothrombin Time 28.8 SEC (10.0-13.1)
[2023-02-24 12:20] LABS: SLIDE REVIEW VERIFIED
[2023-02-24 12:42] LABS: Anion Gap 10 (12-20); Blood Urea Nitrogen 22 mg/dL (9-16); Carbon Dioxide 30 mmol/L (22-29); Chloride 104 mmol/L (96-108); Estimated Glomerular Filt Rate > 60; Potassium 4.8 mmol/L (3.3-5.1); Sodium 139 mmol/L (135-145)
== END 2023-02-24 10:44 | disposition home or self-care (01) ==
LOC: HO.LAB 10:43
PROVIDERS: Visit Provider Family Medicine
DX: I10 Essential (primary) hypertension (principal); D64.9 Anemia, unspecified; E21.3 Hyperparathyroidism, unspecified; E78.00 Pure hypercholesterolemia, unspecified; Z79.01 Long term (current) use of 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; Z79.899 Other long term (current) drug therapy
CPT/HCPCS: 36415; 80051; 82565; 84520; 85025; 85610

== ENCOUNTER → 2023-03-28 10:28 | Outpatient (BNVA) | payer MEDICARE, OTHER, SELFPAY | PROVIDERS: PCP Family Medicine; Visit Provider Orthopaedic Surgery | DX: M17.0 Bilateral primary osteoarthritis of knee (principal); M25.461 Effusion, right knee; M25.462 Effusion, left knee | CPT/HCPCS: 20610; 99212; J1100 ==

== ENCOUNTER 2023-06-23 08:51 | Outpatient (AMB) | payer MEDICARE, OTHER, SELFPAY ==
--- NOTE | 2023-06-23 08:58 | A.OFFVIS_ITS ---
Intake Intake Visit Reasons: OV -B/L Knee OA - Aspiration & Injection Intake Note: Keegan is an 87 year old male who presnets today for a follow up of his bilateral knees. He reports that having the knees aspirated and injected have been very helpful. He is looking to have both of them aspirated and injected today. Allergies adhesive [ADHESIVE] Allergy (Intermediate, Verified 03/28/23 10:37) RASH, BLISTERS atenolol [Atenolol] Allergy (Mild, Verified 03/28/23 10:37) RASH sotalol [Sotalol] Allergy (Mild, Verified 03/28/23 10:37) RASH atorvastatin [From Lipitor] Adverse Reaction (Mild, Verified 03/28/23 10:37) SEVERE ACHES AND PAINS HPI OV -B/L Knee OA - Aspiration & Injection HPI Details Keegan is an 87 year old man with bilateral knee OA & effusion. He has a Hx of knee aspiration & steroid injections, with good relief. His last bilateral injections was on 03/28/23, and he would like to repeat this today. [facility] Medical History Atrial fibrillation HTN (hypertension) Surgical History Aortic valve replaced History of cholecystectomy Social History Household Members: Spouse Housing: House Do you presently have visiting nurse or other home services: No Alcohol intake: never Patient Tobacco Use Status: Never used Tobacco service: No Current occupational status: retired Review of Systems Const All systems reviewed & are unremarkable except as noted in HPI and below Physical Exam Const General: no acute distress and alert Orientation/consciousness: patient oriented x3 Neuro General: patient oriented x3 Extrem Other: Bilateral Knees: Persistent large knee effusion, L>R Psych Appearance: grossly normal Affect: normal affect Attitude: cooperative Office Procedures Joint Injection/Drain Joint Injection/Drain Details: Injected 1 mL of Decadron and 3 mL 1% lidocaine and 3 mL of 0.25% Marcaine. Site was prepped using aseptic technique. Patient tolerated the procedure well.Aspirated both knees as well. Primary Site: right knee Secondary Site: left knee Approach Used: lateral parapatellar Coding - Large joint 72983 - Glenohumeral/Tronchanteric Bursa/Intraarticular Procedure code (CPT) selection complete Results Reviewed Results Reviewed: 06/23/23 08:59 BUPivacaine MPF 0.25 % [Sensorcaine-MPF 0.25% 10 ML] 10 ml .ROUTE .STK-MED ONE Lidocaine HCl 1 % [Xylocaine 1 %] 2 ml .ROUTE .STK-MED ONE Lidocaine HCl 2 % MPF [Xylocaine 2 % MPF] 5 ml .ROUTE .STK-MED ONE dexAMETHasone sod phosphate [Decadron] 4 mg .ROUTE .STK-MED ONE Assessment & Plan Assessment & Plan (1) Tricompartment osteoarthritis of knees, bilateral: Code(s): M17.0 - Bilateral primary osteoarthritis of knee Plan: Keegan is an 85 year old man with tricompartmental bilateral knee OA & effusion, L>R. He continues to have pain & swelling in his knees with daily activity, worse when standing from a seated position. He has a fear of instability and falling when he is swollen which limits his activity. He has a Hx of good relief from aspiration & steroid injections, and would like to repeat this today. I aspirated his bilateral knees today today, removing copious amounts of normal- appearing joint fluid and injected his bilateral knees with a steroid cocktail, which he tolerated well. He can follow up prn. (2) Bilateral knee effusions: Code(s): M25.461 - Effusion, right knee; M25.462 - Effusion, left knee Plan Scribed for Alfred Hernandez MD by Kuldeep Morillo, medical office coordinator, on 06/23/23 at 9:10 AM, EST. Coding Level of Care Code Est Pt Level 3 (74595) Diagnoses Tricompartment osteoarthritis of knees, bilateral M17.0 Bilateral knee effusions M25.461; M25.462 CPT Codes Coding - Large joint: 34858 - Large joint ([id number]) Coding - Joint 7: 65120 - Glenohumeral/Tronchanteric Bursa/Intraarticular ([id number])
== END 2023-06-23 11:54 | disposition home or self-care (01) ==
PROVIDERS: PCP Family Medicine; Visit Provider Orthopaedic Surgery
DX: M17.0 Bilateral primary osteoarthritis of knee (principal); M25.461 Effusion, right knee; M25.462 Effusion, left knee
CPT/HCPCS: 20610; 99213

== ENCOUNTER → 2023-06-23 08:51 | Outpatient (BNVA) | payer MEDICARE, OTHER, SELFPAY | PROVIDERS: PCP Family Medicine; Visit Provider Orthopaedic Surgery | DX: M17.0 Bilateral primary osteoarthritis of knee (principal); M25.461 Effusion, right knee; M25.462 Effusion, left knee | CPT/HCPCS: 20610; 99212; J1100 ==

== ENCOUNTER 2023-08-18 07:49 | Outpatient (REF) | payer MEDICARE, OTHER, SELFPAY ==
[2023-08-18 10:04] LABS: Basophils Absolute Auto 0.1 X10*3/uL (0.0-0.2); Basophils Percent Auto 0.9 % (0-2); Eosinophils Absolute Auto 0.1 X10*3/uL (0.0-0.4); Eosinophils Percent Auto 0.9 % (0-4); Hematocrit 33.5 % (42.0-52.0); Hemoglobin 11.1 g/dl (14.0-18.0); Imm Gran Abs Auto 0.03 X10*3/uL (0.00-0.03); Imm Gran Pct Auto 0.5 % (0.0-0.4); Lymphocytes Absolute Auto 1.8 X10*3/uL (1.2-4.9); MANUAL DIFF FLAG SCAN; Mean Corpuscular HGB Conc 33.1 g/dl (31.0-36.0); Mean Corpuscular Hemoglobin 31.5 pg (27.0-33.0); Mean Corpuscular Volume 95.2 fL (80.0-98.0); Mean Platelet Volume 11.6 fL (9.4-12.4); Monocytes Absolute Auto 1.6 X10*3/uL (0.1-1.2); Monocytes Percent Auto 28.2 % (2-11); Neutrophils Absolute Auto 2.2 x10*3/uL (2.0-8.3); Neutrophils Percent Auto 38.5 % (45-73); Platelet Count 157 X10*3/uL (160-400); Red Blood Count 3.52 X10*6/uL (4.60-5.80); Red Cell Distribution Width 22.5 % (11.0-16.0); SCAN SMEAR FLAG 1; White Blood Count 5.8 X10*3/uL (4.8-10.8)
[2023-08-18 10:17] LABS: INTERNATIONAL NORM RATIO 3.1 (0.9-1.1); Prothrombin Time 37.2 SEC (11.1-13.3)
[2023-08-18 10:31] LABS: SLIDE REVIEW VERIFIED
[2023-08-18 10:33] LABS: Anion Gap 14 (12-20); Blood Urea Nitrogen 27 mg/dL (9-16); Carbon Dioxide 25 mmol/L (22-29); Chloride 103 mmol/L (96-108); Estimated Glomerular Filt Rate > 60; Potassium 4.5 mmol/L (3.3-5.1); Sodium 137 mmol/L (135-145)
[2023-08-19 10:28] LABS: Free Prostate Spec Ag 0.3 ng/mL; Percent Free Prostate Spec Ag 33 % (calc) (>25); Prostate Specific Ag Total 0.9 ng/mL (< OR = 4.0)
== END 2023-08-18 07:50 | disposition home or self-care (01) ==
LOC: HO.LAB 07:49
PROVIDERS: PCP Family Medicine; Visit Provider Urology
DX: I10 Essential (primary) hypertension (principal); N40.1 Benign prostatic hyperplasia with lower urinary tract symptoms; Z79.01 Long term (current) use of 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
CPT/HCPCS: 36415; 80051; 82565; 84154; 84520; 85025; 85610

== ENCOUNTER 2023-09-03 09:19 | Outpatient (REF) | payer MEDICARE, OTHER, SELFPAY ==
[2023-09-03 10:29] LABS: Influenza A PCR NEGATIVE (Negative); Influenza B PCR NEGATIVE (Negative); Resp Syncy Virus RNA Qual PCR NEGATIVE (Negative); SARS COV2 PCR INHOUSE POSITIVE (Negative)
== END 2023-09-03 09:20 | disposition home or self-care (01) ==
LOC: HO.LAB 09:19
PROVIDERS: Visit Provider Family Medicine
DX: R50.9 Fever, unspecified (principal); R05.9 Cough, unspecified
CPT/HCPCS: 0241U

== ENCOUNTER 2023-11-17 10:11 | Outpatient (AMB) | payer MEDICARE, OTHER, SELFPAY ==
--- NOTE | 2023-11-17 10:50 | A.OFFVIS_ITS ---
Intake Intake Visit Reasons: OV-B/L Knee OA-Aspiration & Inj. -last inj-06/23/23 Intake Note: Keegan is an 87 year old male who presents today for a follow up of his bilateral knee OA. Last aspirated and injected 06/23/23. Patient reports that he would like to have his knees aspirated and injected. Injections provide about 1 month of relief. He would like to discuss possible gel injections Allergies adhesive [ADHESIVE] Allergy (Intermediate, Verified 10/01/23 08:51) RASH, BLISTERS atenolol [Atenolol] Allergy (Mild, Verified 10/01/23 08:51) RASH sotalol [Sotalol] Allergy (Mild, Verified 10/01/23 08:51) RASH atorvastatin [From Lipitor] Adverse Reaction (Mild, Verified 10/01/23 08:51) SEVERE ACHES AND PAINS HPI OV-B/L Knee OA-Aspiration & Inj. -last inj-06/23/23 HPI Details Keegan is an 87 year old man with bilateral knee OA & effusion. He has a Hx of knee aspiration & steroid injections, with good relief. His last bilateral aspiration & injections were on 06/23/23, and he would like to repeat this today. [facility] Medical History Atrial fibrillation HTN (hypertension) Surgical History Aortic valve replaced History of cholecystectomy Social History (System 10/01/23 @ 08:51 by Pamela Childers) Household Members: Spouse Housing: House Do you presently have visiting nurse or other home services: No Alcohol intake: never Patient Tobacco Use Status: Never used Tobacco service: No Current occupational status: retired Review of Systems Const All systems reviewed & are unremarkable except as noted in HPI and below Physical Exam Const General: no acute distress, alert and awake Orientation/consciousness: patient oriented x3 HEENT Head: Yes normocephalic and Yes atraumatic Eyes EOM: EOMs intact bilaterally Resp Effort & Inspection: normal respiratory effort and able to speak in complete sentences Cardio Jugular venous distension: no JVD Skin General skin exam: turgor normal Rashes: no rashes Neuro General: patient oriented x3 Extrem Other: skin s/c/i large effusion bilateral knees Psych Appearance: grossly normal Affect: normal affect Attitude: cooperative Office Procedures Joint Injection/Drain Joint Injection/Drain Details: Injected 1 mL of Decadron and 3 mL 1% lidocaine and 3 mL of 0.25% Marcaine. Site was prepped using aseptic technique. Patient tolerated the procedure well. Primary Site: right knee Secondary Site: left knee Approach Used: anterolateral Coding - Large joint - Glenohumeral/Tronchanteric Bursa/Intraarticular Procedure code (CPT) selection complete Results Reviewed Results Reviewed: I personally reviewed relevant radiographs. Bilateral tricompartmental knee OA Assessment & Plan Assessment & Plan (1) Bilateral knee effusions: Code(s): M25.461 - Effusion, right knee; M25.462 - Effusion, left knee Plan: Aspirated and injected bilateral knees (2) Tricompartment osteoarthritis of knees, bilateral: Code(s): M17.0 - Bilateral primary osteoarthritis of knee Plan Scribed for Alfred Hernandez MD by Kuldeep Morillo, health care / medical job titles, on 11/17/23 at 10:55 AM, EST. Coding Level of Care Code Est Pt Level 3 (00714) Diagnoses Bilateral knee effusions M25.461; M25.462 Tricompartment osteoarthritis of knees, bilateral M17.0 CPT Codes Coding - Large joint: 21889 - Large joint ([id number]) Coding - Joint 7: - Glenohumeral/Tronchanteric Bursa/Intraarticular ([id number])
== END 2023-11-17 11:48 | disposition home or self-care (01) ==
PROVIDERS: PCP Family Medicine; Visit Provider Orthopaedic Surgery
DX: M25.461 Effusion, right knee (principal); M25.462 Effusion, left knee; M17.0 Bilateral primary osteoarthritis of knee
CPT/HCPCS: 20610; 99213

== ENCOUNTER → 2023-11-17 10:11 | Outpatient (BNVA) | payer MEDICARE, OTHER, SELFPAY | PROVIDERS: PCP Family Medicine; Visit Provider Orthopaedic Surgery | DX: M17.0 Bilateral primary osteoarthritis of knee (principal); M25.461 Effusion, right knee; M25.462 Effusion, left knee | CPT/HCPCS: 20610; 99212; J0665; J1100 ==

== ENCOUNTER 2024-02-10 07:33 | Outpatient (REF) | payer MEDICARE, OTHER, SELFPAY ==
[2024-02-10 08:30] LABS: Basophils Percent Auto 0.3 % (0-2); Eosinophils Absolute Auto 0.1 X10*3/uL (0.0-0.4); Eosinophils Percent Auto 1.3 % (0-4); Hematocrit 30.4 % (42.0-52.0); Hemoglobin 9.9 g/dl (14.0-18.0); Imm Gran Abs Auto 0.04 X10*3/uL (0.00-0.03); Imm Gran Pct Auto 0.6 % (0.0-0.4); Lymphocytes Absolute Auto 1.6 X10*3/uL (1.2-4.9); Lymphocytes Percent Auto 24.6 % (20-40); MANUAL DIFF FLAG SCAN; Mean Corpuscular HGB Conc 32.6 g/dl (31.0-36.0); Mean Corpuscular Volume 95.3 fL (80.0-98.0); Monocytes Absolute Auto 2.3 X10*3/uL (0.1-1.2); Monocytes Percent Auto 36.5 % (2-11); NRBC Pct Auto 0.3 /100WBC (0.0-0.2); Neutrophils Absolute Auto 2.4 x10*3/uL (2.0-8.3); Neutrophils Percent Auto 36.7 % (45-73); Platelet Count 151 X10*3/uL (160-400); Red Blood Count 3.19 X10*6/uL (4.60-5.80); Red Cell Distribution Width 23.6 % (11.0-16.0); SCAN SMEAR FLAG 1; White Blood Count 6.4 X10*3/uL (4.8-10.8)
[2024-02-10 08:53] LABS: SLIDE REVIEW VERIFIED
[2024-02-10 09:04] LABS: Alanine Aminotransferase 11 U/L (0-40); Anion Gap 11 (12-20); Aspartate Amino Transferase 21 U/L (5-37); Blood Urea Nitrogen 23 mg/dL (9-16); Carbon Dioxide 30 mmol/L (22-29); Chloride 107 mmol/L (96-108); Estimated Glomerular Filt Rate > 60; Sodium 144 mmol/L (135-145)
== END 2024-02-10 07:34 | disposition home or self-care (01) ==
LOC: HO.LAB 07:33
PROVIDERS: PCP Family Medicine; Visit Provider Family Medicine
DX: I10 Essential (primary) hypertension (principal); E78.00 Pure hypercholesterolemia, unspecified; D64.9 Anemia, unspecified; Z79.899 Other long term (current) drug therapy
CPT/HCPCS: 36415; 80051; 82550; 82565; 84450; 84460; 84520; 85025

== ENCOUNTER 2024-05-13 14:16 | Outpatient (AMB) | payer MEDICARE, OTHER, SELFPAY ==
--- NOTE | 2024-05-13 14:38 | MHC.OFFVIS ---
Intake Visit Reasons: OV-B/L knee-wants knees drained Intake Note: Keegan is an 87 year old male who presents today for a follow up of his bilateral tricompartmental OA. Last aspirated and injected 11/17/23.He would like to repeat aspiration and injection in both knees Allergies adhesive [ADHESIVE] Allergy (Intermediate, Verified 10/01/23 08:51) RASH, BLISTERS atenolol [Atenolol] Allergy (Mild, Verified 10/01/23 08:51) RASH sotalol [Sotalol] Allergy (Mild, Verified 10/01/23 08:51) RASH atorvastatin [From Lipitor] Adverse Reaction (Mild, Verified 10/01/23 08:51) SEVERE ACHES AND PAINS HPI HPI OV-B/L knee-wants knees drained: Details: Bilateral knee effusion and left hip trochanteric cyst . This bothers him while he is trying to sleep. He would like to have his knees drained and injected as this seems to help him. [facility] Medical History Atrial fibrillation HTN (hypertension) Surgical History Aortic valve replaced History of cholecystectomy Social History (System 10/01/23 @ 08:51 by Pamela Childers) Household Members: Spouse Housing: House Do you presently have visiting nurse or other home services: No Alcohol intake: never Patient Tobacco Use Status: Never used Tobacco service: No Current occupational status: retired Physical Exam Const General: no acute distress, alert and awake Orientation/consciousness: patient oriented x3 HEENT Head: Yes normocephalic and Yes atraumatic Eyes EOM: EOMs intact bilaterally Resp Effort & Inspection: normal respiratory effort and able to speak in complete sentences Cardio Jugular venous distension: no JVD Skin General skin exam: turgor normal Rashes: no rashes Neuro General: patient oriented x3 Extrem Other: skin s/c/i large effusion bilateral knees left > right On the lateral left hip, over the greater trochanter, there is a lemon sized firm cyst, ganglion-like. Psych Appearance: grossly normal Affect: normal affect Attitude: cooperative Office Procedures Joint Injection/Drain Joint Injection/Drain Details: Injected 1 mL of Decadron and 3 mL 1% lidocaine and 3 mL of 0.25% Marcaine. Site was prepped using aseptic technique. Patient tolerated the procedure well. Aspirated 200 ml of nl appearing joint fluid from the left and ~75 ml from the right. Primary Site: right knee Secondary Site: left knee Approach Used: lateral parapatellar Coding 57553 - Large joint 32431 - Glenohumeral/Tronchanteric Bursa/Intraarticular Procedure code (CPT) selection complete Assessment & Plan Assessment & Plan (1) Bilateral knee effusions: Code(s): M25.461 - Effusion, right knee; M25.462 - Effusion, left knee Category: Medical Plan: Aspirated copious amounts of normal appearing joint fluid Injected bilateral knees (2) Ganglion, left hip: Code(s): M67.452 - Ganglion, left hip Category: Medical Plan: Large ganglion that is uncomfortable when trying to sleep/lie on side. Cannot tolerate MRI due to h/o eye surgery. CT without contrast ordered. Orders: Orders CT hip LT wo IV con Today M67.452 - Ganglion, left hip Coding Level of Care Code Est Pt Level 4 (39538) Diagnoses Bilateral knee effusions M25.461; M25.462 Ganglion, left hip M67.452 CPT Codes Coding - Large joint: 56611 - Large joint ([id number]) Coding - Joint 7: 51383 - Glenohumeral/Tronchanteric Bursa/Intraarticular ([id number])
== END 2024-05-13 15:09 | disposition home or self-care (01) ==
PROVIDERS: PCP Family Medicine; Visit Provider Orthopaedic Surgery
DX: M25.461 Effusion, right knee (principal); M25.462 Effusion, left knee; M67.452 Ganglion, left hip
CPT/HCPCS: 20610; 99214

== ENCOUNTER → 2024-05-13 14:16 | Outpatient (BNVA) | payer MEDICARE, OTHER, SELFPAY | PROVIDERS: PCP Family Medicine; Visit Provider Orthopaedic Surgery | DX: M25.461 Effusion, right knee (principal); M25.462 Effusion, left knee; M67.452 Ganglion, left hip | CPT/HCPCS: 20610; 99212; J0665; J1100 ==

== ENCOUNTER 2024-06-15 07:21 | Outpatient (REF) | payer MEDICARE, OTHER, SELFPAY ==
--- NOTE | ~2024-06-15 | CT_ITS ---
EXAMINATION: CT HIP WITHOUT CONTRAST, LEFT CLINICAL INFORMATION: Ganglion, left hip. COMPARISON: Radiographs dated 09/27/2020. TECHNIQUE: Multidetector volumetric imaging was obtained through the left hip without contrast material. Multiplanar reformatted images were submitted in coronal and sagittal planes. This CT examination was performed using dose optimization techniques as appropriate, variously including the following: *Automated exposure control *Adjustment of mA and/or kV according to patient size (this includes techniques or standardized protocols for targeted exams where dose is matched to indication/reason for exam; i.e. extremities or head) *Use of iterative reconstruction technique DLP: 797 mGy-cm FINDINGS: Within the subcutaneous fat at the lateral aspect of the left hip just superficial to the IT band and greater trochanter, there is a 6.6 x 5.1 x 6.2 cm heterogeneous soft tissue attenuation mass lesion. This contacts the overlying skin surface which is partially excluded on this study. Mild surrounding fat stranding is noted. There is a thin plane of fat this lesion from the underlying IT band and fascia jerry. No additional lesions are identified. No appreciable cystic components. There is [id number] atrophy of the gluteus minimus muscle. Musculature is otherwise unremarkable. No adenopathy. There is [id number] osteoarthritis in the left hip and left SI joint. Degenerative spondylosis is present in the lower lumbar spine at L5-S1. Pubic symphysis is unremarkable. No osseous lesions. Prostate gland is enlarged, measuring 5.4 cm transverse with indentation of the base of the bladder and central dystrophic calcifications. The bladder is distended with mild wall thickening and trabeculation, most consistent with chronic bladder outlet obstruction. Moderate-sized bilateral hydroceles. CT/CT hip LT wo IV con IMPRESSION: 1. A 6.6 cm heterogeneous soft tissue mass in the subcutaneous fat at the lateral aspect of the left hip. This is most concerning for a soft tissue neoplasm. Hematoma is on the differential, though less likely. As this mass is quite superficial, biopsy is advised for definitive diagnosis. Ultrasound or MRI with and without contrast could be obtained for further assessment prior to biopsy if warranted clinically. 2. Ibqh-qu-rzqrmvxh osteoarthritis in the left hip and left SI joint. 3. Prostatomegaly with evidence of chronic bladder outlet obstruction. 4. Moderate-sized bilateral hydroceles.
== END 2024-06-15 07:22 | disposition home or self-care (01) ==
LOC: HO.CT 07:21
PROVIDERS: PCP Family Medicine; Visit Provider Orthopaedic Surgery
DX: M67.452 Ganglion, left hip (principal)
CPT/HCPCS: 73700

== ENCOUNTER 2024-06-16 10:07 | Outpatient (REF) | payer MEDICARE, OTHER, SELFPAY ==
[2024-06-16 10:55] LABS: Basophils Percent Auto 0.5 % (0-2); NRBC Pct Auto 0.5 /100WBC (0.0-0.2); Reticulocytes Absolute 0.026 X10*6/uL (0.026-0.095)
[2024-06-16 10:58] LABS: Eosinophils Absolute Auto 0.1 X10*3/uL (0.0-0.4); Eosinophils Percent Auto 1.4 % (0-4); Hematocrit 32.5 % (42.0-52.0); Hemoglobin 10.7 g/dl (14.0-18.0); Imm Gran Abs Auto 0.03 X10*3/uL (0.00-0.03); Imm Gran Pct Auto 0.5 % (0.0-0.4); Immature Retic Fraction 13.9 % (2.3-13.4); Lymphocytes Percent Auto 35.4 % (20-40); Mean Corpuscular HGB Conc 32.9 g/dl (31.0-36.0); Mean Corpuscular Hemoglobin 30.5 pg (27.0-33.0); Mean Corpuscular Volume 92.6 fL (80.0-98.0); Monocytes Absolute Auto 1.9 X10*3/uL (0.1-1.2); Monocytes Percent Auto 33.4 % (2-11); Neutrophils Absolute Auto 1.6 x10*3/uL (2.0-8.3); Neutrophils Percent Auto 28.8 % (45-73); Platelet Count 155 X10*3/uL (160-400); Red Blood Count 3.51 X10*6/uL (4.60-5.80); Red Cell Distribution Width 25.4 % (11.0-16.0); Retic HGB Equivalent 31.4 pg (30.0-35.0); Reticulocyte Percent 0.8 % (0.5-1.8); White Blood Count 5.6 X10*3/uL (4.8-10.8)
[2024-06-16 11:10] LABS: INTERNATIONAL NORM RATIO 1.9 (0.9-1.1)
[2024-06-16 11:51] LABS: Iron 112 mcg/dL (45-160); Percent Iron Saturation 38 % (15-50); Total Iron Binding Capacity 294 mcg/dL (228-428); Unsaturated Iron Binding 182 ug/dL
[2024-06-16 12:06] LABS: Ferritin 474 ng/mL (20-250)
[2024-06-16 14:04] LABS: Folate 10.4 ng/mL (> or = 4.0); Vitamin B12 966 pg/mL (200-900)
== END 2024-06-16 10:08 | disposition home or self-care (01) ==
LOC: HO.LAB 10:07
PROVIDERS: Visit Provider Family Medicine
DX: D64.9 Anemia, unspecified (principal); Z79.01 Long term (current) use of 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
CPT/HCPCS: 36415; 82607; 82728; 82746; 83540; 85025; 85045; 85610

== ENCOUNTER 2024-08-11 07:24 | Outpatient (REF) | payer MEDICARE, OTHER, SELFPAY ==
[2024-08-11 08:01] LABS: Basophils Percent Auto 0.5 % (0-2); Eosinophils Absolute Auto 0.1 X10*3/uL (0.0-0.4); Hematocrit 31.7 % (42.0-52.0); Hemoglobin 10.4 g/dl (14.0-18.0); Imm Gran Abs Auto 0.05 X10*3/uL (0.00-0.03); Imm Gran Pct Auto 0.8 % (0.0-0.4); Lymphocytes Absolute Auto 1.8 X10*3/uL (1.2-4.9); Lymphocytes Percent Auto 28.5 % (20-40); MANUAL DIFF FLAG SCAN; Mean Corpuscular HGB Conc 32.8 g/dl (31.0-36.0); Mean Corpuscular Hemoglobin 30.8 pg (27.0-33.0); Mean Corpuscular Volume 93.8 fL (80.0-98.0); Monocytes Absolute Auto 2.1 X10*3/uL (0.1-1.2); Monocytes Percent Auto 33.3 % (2-11); Neutrophils Absolute Auto 2.2 x10*3/uL (2.0-8.3); Neutrophils Percent Auto 35.9 % (45-73); Platelet Count 129 X10*3/uL (160-400); Red Blood Count 3.38 X10*6/uL (4.60-5.80); Red Cell Distribution Width 26.2 % (11.0-16.0); SCAN SMEAR FLAG 1; White Blood Count 6.2 X10*3/uL (4.8-10.8)
[2024-08-11 08:27] LABS: SLIDE REVIEW VERIFIED
[2024-08-11 08:32] LABS: Anion Gap 12 (12-20); Blood Urea Nitrogen 22 mg/dL (9-16); Carbon Dioxide 30 mmol/L (22-29); Chloride 104 mmol/L (96-108); Estimated Glomerular Filt Rate > 60; Potassium 4.1 mmol/L (3.3-5.1); Sodium 142 mmol/L (135-145)
[2024-08-11 08:45] LABS: Erythrocyte Sedimentation Rate 16 MM/HR (0-15)
== END 2024-08-11 07:25 | disposition home or self-care (01) ==
LOC: HO.LAB 07:24
PROVIDERS: PCP Family Medicine; Visit Provider Family Medicine
DX: D64.9 Anemia, unspecified (principal); I10 Essential (primary) hypertension
CPT/HCPCS: 36415; 80051; 82565; 84520; 85025; 85652

== ENCOUNTER 2024-08-19 13:35 | Outpatient (AMB) | payer MEDICARE, OTHER, SELFPAY ==
--- NOTE | 2024-08-19 13:46 | MHC.OFFVIS ---
Intake Visit Reasons: OV - Bilateral Knee Asp & Inj last done 05/13/24 Intake Note: Keegan is an 88 year old male who presents today for repeat bilateral knee aspiration and injections. Last done on 05/13/24 Allergies adhesive [ADHESIVE] Allergy (Intermediate, Verified 10/01/23 08:51) RASH, BLISTERS atenolol [Atenolol] Allergy (Mild, Verified 10/01/23 08:51) RASH sotalol [Sotalol] Allergy (Mild, Verified 10/01/23 08:51) RASH atorvastatin [From Lipitor] Adverse Reaction (Mild, Verified 10/01/23 08:51) SEVERE ACHES AND PAINS HPI HPI OV - Bilateral Knee Asp & Inj last done 05/13/24: Details: Keegan is an 88 year old male who presents today for repeat bilateral knee aspiration and injections. Last done on 05/13/24 [facility] Medical History Atrial fibrillation HTN (hypertension) Surgical History Aortic valve replaced History of cholecystectomy Social History (System 10/01/23 @ 08:51 by Pamela Childers) Household Members: Spouse Housing: House Do you presently have visiting nurse or other home services: No Alcohol intake: never Patient Tobacco Use Status: Never used Tobacco service: No Current occupational status: retired Physical Exam Extrem Other: large bilateral knee effusions Office Procedures Joint Injection/Aspiration Joint Injection/Aspiration Details: Aspirated and then injected 1 mL of Decadron and 3 mL 1% lidocaine and 3 mL of 0.25% Marcaine. Site was prepped using aseptic technique. Patient tolerated the procedure well. Primary Site: right knee Secondary Site: left knee Approach Used: lateral parapatellar Coding - Large joint - Glenohumeral/Tronchanteric Bursa/Intraarticular Procedure code (CPT) selection complete Assessment & Plan Assessment & Plan (1) Bilateral knee effusions: Code(s): M25.461 - Effusion, right knee; M25.462 - Effusion, left knee Category: Medical Plan: Aspirated and injected. May f/u 3 mo Coding Level of Care Code Est Pt Level 3 (31352) Diagnoses Bilateral knee effusions M25.461; M25.462 CPT Codes Coding - 65405 Large joint: 77931 - Large joint ([id number]) Coding - Joint 7: 73727 - Glenohumeral/Tronchanteric Bursa/Intraarticular ([id number])
== END 2024-08-19 15:02 | disposition home or self-care (01) ==
PROVIDERS: PCP Family Medicine; Visit Provider Orthopaedic Surgery
DX: M25.461 Effusion, right knee (principal); M25.462 Effusion, left knee
CPT/HCPCS: 20610; 99213

== ENCOUNTER → 2024-08-19 13:35 | Outpatient (BNVA) | payer MEDICARE, OTHER, SELFPAY | PROVIDERS: PCP Family Medicine; Visit Provider Orthopaedic Surgery | DX: M25.461 Effusion, right knee (principal); M25.462 Effusion, left knee | CPT/HCPCS: 20610; 99212; J0665; J1100 ==

== ENCOUNTER 2024-08-25 15:11 | Outpatient (REF) | payer MEDICARE, OTHER, SELFPAY ==
[2024-08-25 16:22] LABS: B Type Natriuretic Peptide 89 pg/mL (<100)
[2024-08-25 16:33] LABS: Anion Gap 12 (12-20); Blood Urea Nitrogen 33 mg/dL (9-16); Calcium 9.9 mg/dL (8.4-10.2); Carbon Dioxide 30 mmol/L (22-29); Chloride 103 mmol/L (96-108); Estimated Glomerular Filt Rate > 60; Glucose Random 103 mg/dL (60-115); Magnesium 2.2 mg/dL (1.6-2.6); Potassium 4.2 mmol/L (3.3-5.1); Sodium 141 mmol/L (135-145)
[2024-08-26 08:14] LABS: Beta-2 Microglobulin, Serum 3.23 mg/L (< OR = 2.51)
== END 2024-08-25 15:12 | disposition home or self-care (01) ==
LOC: HO.LAB 15:11
PROVIDERS: PCP Family Medicine; Referring Provider Family Medicine; Visit Provider Internal Medicine Cardiovascular Disease
DX: I50.32 Chronic diastolic (congestive) heart failure (principal); I10 Essential (primary) hypertension; D64.9 Anemia, unspecified
CPT/HCPCS: 36415; 80048; 82232; 83735; 83880; 86023

== ENCOUNTER 2024-09-16 08:56 | Outpatient (REF) | payer MEDICARE, OTHER, SELFPAY | END 2024-09-16 08:57 | disposition home or self-care (01) | LOC: HO.LAB 08:56 | PROVIDERS: Visit Provider Family Medicine | DX: Z13.89 Encounter for screening for other disorder (principal) | CPT/HCPCS: 36415; 88184; 88185 ==

== ENCOUNTER 2024-09-27 16:07 | Outpatient (REF) | payer MEDICARE, OTHER, SELFPAY ==
[2024-09-27 17:39] LABS: Anion Gap 12 (12-20); Blood Urea Nitrogen 33 mg/dL (9-16); Calcium 9.2 mg/dL (8.4-10.2); Carbon Dioxide 28 mmol/L (22-29); Chloride 104 mmol/L (96-108); Estimated Glomerular Filt Rate 46; Glucose Random 100 mg/dL (60-115); Potassium 3.7 mmol/L (3.3-5.1); Sodium 140 mmol/L (135-145)
== END 2024-09-27 16:08 | disposition home or self-care (01) ==
LOC: HO.LAB 16:07
PROVIDERS: PCP Family Medicine; Visit Provider Internal Medicine Cardiovascular Disease
DX: I50.32 Chronic diastolic (congestive) heart failure (principal)
CPT/HCPCS: 36415; 80048

== ENCOUNTER 2024-10-05 09:08 | Outpatient (REF) | payer MEDICARE, OTHER, SELFPAY ==
[2024-10-05 11:31] LABS: Blood Urea Nitrogen 28 mg/dL (9-16); Estimated Glomerular Filt Rate 42
[2024-10-05 11:43] LABS: Anion Gap 11 (12-20); Blood Urea Nitrogen 28 mg/dL (9-16); Calcium 9.1 mg/dL (8.4-10.2); Carbon Dioxide 28 mmol/L (22-29); Chloride 104 mmol/L (96-108); Estimated Glomerular Filt Rate 40; Glucose Random 104 mg/dL (60-115); Potassium 3.9 mmol/L (3.3-5.1); Sodium 139 mmol/L (135-145)
== END 2024-10-05 09:09 | disposition home or self-care (01) ==
LOC: HO.LAB 09:08
PROVIDERS: PCP Family Medicine; Visit Provider Nurse Practitioner Family
DX: I48.91 Unspecified atrial fibrillation (principal); I48.92 Unspecified atrial flutter
CPT/HCPCS: 36415; 80048; 82565; 84520

== ENCOUNTER 2024-10-11 08:27 | Outpatient (REF) | payer MEDICARE, OTHER, SELFPAY ==
[2024-10-11 09:46] LABS: Blood Urea Nitrogen 23 mg/dL (9-16); Estimated Glomerular Filt Rate 56
== END 2024-10-11 08:28 | disposition home or self-care (01) ==
LOC: HO.LAB 08:27
PROVIDERS: PCP Family Medicine; Visit Provider Family Medicine
DX: R94.4 Abnormal results of kidney function studies (principal)
CPT/HCPCS: 36415; 82565; 84520

== ENCOUNTER 2024-10-24 02:41 | Emergency (ER) | payer MEDICARE, OTHER, SELFPAY ==
[2024-10-24 02:49] VITALS: BP 154/69; PULSE 74; RESP 20; TEMP 36.7; O2SAT 98; BMI 29.2
--- NOTE | 2024-10-24 04:08 | PC.NURSE ---
Dried blood cleansed with bath wipes, from left side of neck. Had melanoma removal at [facility] on Friday, October 20, 2024 behind left ear. Excised area is approximately the size of a US Quarter coin, superficial. No signs of infection. Silver Nitrate applied by to the region to stop bleeding with positive effect.
--- NOTE | 2024-10-24 04:22 | ED_ITS ---
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 The patient is on warfarin. He has a mechanical valve. He comes to the emergency room because he has been having bleeding from the site tonight. He does not feel ill otherwise. He could not manage the bleeding at home. The patient had not held his warfarin for the procedure. Related Data Home Medications ?Medication ?Instructions ?Recorded ?Confirmed acebutolol 200 mg capsule 200 mg PO BEDTIME 04/17/21 11/02/21 acebutolol 200 mg capsule 400 mg PO DAILY 04/17/21 11/02/21 doxazosin 4 mg tablet 1 tab PO DAILY 04/17/21 11/02/21 finasteride 5 mg tablet 5 mg PO BEDTIME 04/17/21 11/02/21 furosemide 80 mg tablet 1 tab PO QAM 04/17/21 11/02/21 lisinopril 20 mg tablet 20 mg PO DAILY 04/17/21 11/02/21 rosuvastatin 40 mg tablet 1 tab PO DAILY 04/17/21 11/02/21 potassium chloride 20 mEq 20 meq PO DAILY 07/19/21 11/02/21 tablet,extended release(part/cryst) (Klor-Con M) spironolactone 25 mg tablet 25 mg PO QAM 07/19/21 11/02/21 celecoxib 200 mg capsule 1 cap PO DAILY 11/02/21 11/02/21 warfarin 4 mg tablet 4 mg PO DAILY@1800 11/02/21 11/02/21 Previous Rx's ?Medication ?Instructions ?Recorded dexamethasone 6 mg tablet 6 mg PO DAILY #5 tabs 11/07/21 benzonatate 200 mg capsule 200 mg PO TID PRN cough #14 caps 10/12/22 Allergies Allergy/AdvReac Type Severity Reaction Status Date / Time adhesive [ADHESIVE] Allergy Intermediate RASH, Verified 10/24/24 02:55 BLISTERS atenolol [Atenolol] Allergy Mild RASH Verified 10/24/24 02:55 sotalol [Sotalol] Allergy Mild RASH Verified 10/24/24 02:55 atorvastatin [From Lipitor] AdvReac Mild SEVERE Verified 10/24/24 02:55 ACHES AND PAINS Review of Systems 2 Review of Systems: Yes all other systems are reviewed and are negative [facility] Past Medical History Medical History Atrial fibrillation HTN (hypertension) Surgical History Aortic valve replaced History of cholecystectomy Social History Social History (System 10/01/23 @ 08:51 by Pamela Childers) Household Members: Spouse Housing: House Do you presently have visiting nurse or other home services: No Alcohol intake: never Patient Tobacco Use Status: Never used Tobacco Advance Directives: No Do you have a plan to hurt others: No Plan service: No Current occupational status: retired Physical Exam ED Vital Signs: Vital Signs - 24 hr 10/24/24 02:49 10/24/24 06:50 Temperature 98.0 F 98.0 F Pulse Rate 74 74 Respiratory Rate 20 20 Blood Pressure 154/69 H 154/69 H Pulse Oximetry 98 98 Oxygen Delivery Method Room Air Room Air BMI result Body Mass Index 29.2 Const Other: The patient is an 88-year-old man who was awake and alert. He does not seem acutely ill although he had some bleeding from a bandage behind his left ear. HENMT Other: The patient had a blood-soaked bandage to the skin behind the left ear. Removing the bandage revealed a skin defect slightly larger than a quarter. This was a surgical wound which who was clearly intended to be a partial- thickness wound. There was some blood oozing around the peripheral aspects of the wound. Eyes General: appearance normal, both eyes and all related structures Neck Other: Moving his neck easily. Resp Effort & Inspection: normal respiratory effort Auscultation: clear to auscultation bilaterally Cardio Rate: regular rate Rhythm: regular rhythm Heart sounds: S1 normal heart sound present and S2 normal heart sound present Skin Other: There is a surgical wound to the skin behind the left ear. The area of the wound is about the size of a quarter or possibly slightly larger. There was some oozing of blood around the periphery. Neuro Other: The patient is awake and alert with a normal mental status. Cranial nerves are grossly intact. He has a steady gait. Extrem Other: Some lower extremity edema is present Medications Administered Discontinued Medications Generic Name Dose Route Start Last Admin Trade Name Stephanie PRN Reason Stop Dose Admin Bacitracin 1 appl 10/24/24 05:05 10/24/24 05:52 Bacitracin Oint 0.9 Gm Packet TOPICAL 10/24/24 05:06 1 appl ONCE ONE Administration Protocol Medical Decision Making Medical Decision Making MDM Narrative: The patient is four days from a Mohs procedure to the skin of the scalp behind the left ear. He is on warfarin because of a mechanical valve. He had oozing from the wound. Cauterized the areas of oozing with a silver nitrate stick. He was observed. He did not seem to have any recurrence of bleeding. Bacitracin and a dressing were applied. Labs were checked. Hemoglobin is 8.9. INR is 2.7. I think he is stable for discharge to follow up with his regular doctor and the dermatology office. Lab Data 10/24/24 05:00 10/24/24 05:00 Labs: Lab Results 10/24/24 Range/Units 05:00 WBC 6.0 (4.8-10.8) X10*3/uL RBC 2.91 L (4.60-5.80) X10*6/uL Hgb 8.9 L (14.0-18.0) g/dl Hct 26.7 L (42.0-52.0) % MCV 91.8 (80.0-98.0) fL MCH 30.6 (27.0-33.0) pg MCHC 33.3 (31.0-36.0) g/dl RDW 24.8 H (11.0-16.0) % Plt Count 149 L (160-400) X10*3/uL MPV 10.8 (9.4-12.4) fL Immature Gran % (Auto) 1.0 H (0.0-0.4) % Neut % (Auto) 26.6 L (45-73) % Lymph % (Auto) 39.4 (20-40) % [place] % (Auto) 30.8 H (2-11) % Eos % (Auto) 1.7 (0-4) % Baso % (Auto) 0.5 (0-2) % Lymph # (Auto) 2.4 (1.2-4.9) X10*3/uL [place] # (Auto) 1.8 H (0.1-1.2) X10*3/uL Eos # (Auto) 0.1 (0.0-0.4) X10*3/uL Baso # (Auto) 0.0 (0.0-0.2) X10*3/uL Abs Immat Gran (auto) 0.06 H (0.00-0.03) X10*3/uL Absolute Neuts (auto) 1.6 L (2.0-8.3) x10*3/uL Absolute Nucleated RBC 0.000 (0.0-0.012) X10*3/uL Nucleated RBC % (auto) 0.0 (0.0-0.2) /100WBC Smear Tech's Comments VERIFIED PT 32.0 H (10.9-12.4) SEC INR 2.7 H (0.9-1.1) Sodium 141 (135-145) mmol/L Potassium 3.7 (3.3-5.1) mmol/L Chloride 101 (96-108) mmol/L Carbon Dioxide 31 H (22-29) mmol/L Anion Gap 13 (12-20) BUN 23 H (9-16) mg/dL Creatinine 1.03 (0.5-1.4) mg/dL Estim Creat Clear Calc 70.6 Estimated GFR > 60 Random Glucose 102 (60-115) mg/dL Calcium 9.0 (8.4-10.2) mg/dL Discharge Plan Discharge Clinical Impression: Bleeding from wound, Chronic anticoagulation, Mechanical heart valve present Patient Disposition: Home, Self-Care Additional Instructions: I cauterized some small areas of bleeding at the wound. This seems to have been effective. Please continue the mupirocin ointment you were prescribed. Please stay in touch with the dermatology office for additional advice. Return to the emergency room if worse. Prescriptions: No Action lisinopril 20 mg tablet 20 mg PO DAILY furosemide 80 mg tablet 1 tab PO QAM doxazosin 4 mg tablet 1 tab PO DAILY acebutolol 200 mg capsule 400 mg PO DAILY finasteride 5 mg tablet 5 mg PO BEDTIME rosuvastatin 40 mg tablet 1 tab PO DAILY acebutolol 200 mg capsule 200 mg PO BEDTIME celecoxib 200 mg capsule 1 cap PO DAILY warfarin 4 mg tablet 4 mg PO DAILY@1800 dexamethasone 6 mg tablet 6 mg PO DAILY Qty: 5 0RF benzonatate 200 mg capsule 200 mg PO TID PRN (Reason: cough) Qty: 14 0RF potassium chloride [Klor-Con M20] 20 mEq tablet,ER particles/crystals 20 meq PO DAILY spironolactone 25 mg tablet 25 mg PO QAM Interventions: ED Discharge Assessment Last Done: 10/24/24 06:50 Discharge Date/Time: 10/24/24 06:50 Print Language: Citizen Of [place]
[2024-10-24 05:05] LABS: Imm Gran Abs Auto 0.06 X10*3/uL (0.00-0.03); Lymphocytes Percent Auto 39.4 % (20-40); MANUAL DIFF FLAG SCAN; Mean Platelet Volume 10.8 fL (9.4-12.4); Neutrophils Percent Auto 26.6 % (45-73); PLT ABN DIST 1; Red Blood Count 2.91 X10*6/uL (4.60-5.80); SCAN SMEAR FLAG 1
[2024-10-24 05:06] LABS: Basophils Percent Auto 0.5 % (0-2); Eosinophils Absolute Auto 0.1 X10*3/uL (0.0-0.4); Eosinophils Percent Auto 1.7 % (0-4); Hematocrit 26.7 % (42.0-52.0); Hemoglobin 8.9 g/dl (14.0-18.0); Lymphocytes Absolute Auto 2.4 X10*3/uL (1.2-4.9); Mean Corpuscular HGB Conc 33.3 g/dl (31.0-36.0); Mean Corpuscular Hemoglobin 30.6 pg (27.0-33.0); Mean Corpuscular Volume 91.8 fL (80.0-98.0); Monocytes Absolute Auto 1.8 X10*3/uL (0.1-1.2); Monocytes Percent Auto 30.8 % (2-11); Neutrophils Absolute Auto 1.6 x10*3/uL (2.0-8.3); Platelet Count 149 X10*3/uL (160-400); Red Cell Distribution Width 24.8 % (11.0-16.0)
[2024-10-24 05:12] LABS: INTERNATIONAL NORM RATIO 2.7 (0.9-1.1)
[2024-10-24 05:18] LABS: Anion Gap 13 (12-20); Blood Urea Nitrogen 23 mg/dL (9-16); Carbon Dioxide 31 mmol/L (22-29); Chloride 101 mmol/L (96-108); Creatinine Clr Calc Pharmacy 70.6; Estimated Glomerular Filt Rate > 60; Glucose Random 102 mg/dL (60-115); Potassium 3.7 mmol/L (3.3-5.1); Sodium 141 mmol/L (135-145)
[2024-10-24 05:24] LABS: SLIDE REVIEW VERIFIED
[2024-10-24] MEDS: Bacitracin Oint 0.9 GM PACKET 1 APPL TOPICAL (05:52)
[2024-10-24 06:50] VITALS: BP 154/69; PULSE 74; RESP 20; TEMP 36.7; O2SAT 98
== END 2024-10-24 06:50 | disposition home or self-care (01) ==
PROVIDERS: Emergency Provider Emergency Medicine; PCP Family Medicine
DX: H95.42 Postprocedural hemorrhage of ear and mastoid process following other procedure (principal); Z79.01 Long term (current) use of 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; Z79.899 Other long term (current) drug therapy; Z95.2 Presence of prosthetic heart valve
CPT/HCPCS: 36415; 80048; 85025; 85610; 99282; 99283

== ENCOUNTER 2024-10-29 10:30 | Outpatient (REF) | payer MEDICARE, OTHER, SELFPAY ==
[2024-10-29 11:24] LABS: Anion Gap 15 (12-20); Blood Urea Nitrogen 18 mg/dL (9-16); Calcium 9.1 mg/dL (8.4-10.2); Carbon Dioxide 30 mmol/L (22-29); Chloride 101 mmol/L (96-108); Estimated Glomerular Filt Rate > 60; Glucose Random 92 mg/dL (60-115); Potassium 4.4 mmol/L (3.3-5.1); Sodium 142 mmol/L (135-145)
== END 2024-10-29 10:31 | disposition home or self-care (01) ==
LOC: HO.LAB 10:30
PROVIDERS: PCP Family Medicine; Visit Provider Internal Medicine Cardiovascular Disease
DX: I15.9 Secondary hypertension, unspecified (principal)
CPT/HCPCS: 36415; 80048

== ENCOUNTER 2024-11-26 08:59 | Outpatient (REF) | payer MEDICARE, OTHER, SELFPAY ==
--- NOTE | ~2024-11-26 | XR_ITS ---
EXAMINATION: XR KNEE, RIGHT CLINICAL INFORMATION: Right knee pain. COMPARISON: Most recent right knee radiographs dated 12/07/2019. TECHNIQUE: Four views of the right knee. FINDINGS: [id number] tricompartmental joint space narrowing with marginal osteophytes, most prominent within the lateral compartment. Findings are slightly progressed when compared to the prior examination. No acute fracture or dislocation. No concerning lytic or blastic osseous lesion. Yrkvdqer-ea-mxyir joint effusion. Atherosclerotic calcifications. XR/XR knee RT 4V IMPRESSION: Gftmvjgd-pd-aarkxa tricompartmental osteoarthritis, most prominent within the lateral compartment, slightly progressed when compared to the prior examination. Fmvwlvbo-fc-nroau joint effusion. Electronically signed by: Estuardo Puente MD 11/26/2024 10:35 AM [facility]
[2024-11-26 09:43] LABS: Basophils Percent Auto 0.5 % (0-2); Eosinophils Absolute Auto 0.1 X10*3/uL (0.0-0.4); Eosinophils Percent Auto 0.8 % (0-4); Hematocrit 29.4 % (42.0-52.0); Hemoglobin 9.8 g/dl (14.0-18.0); Imm Gran Abs Auto 0.09 X10*3/uL (0.00-0.03); Imm Gran Pct Auto 1.4 % (0.0-0.4); Lymphocytes Absolute Auto 2.7 X10*3/uL (1.2-4.9); Lymphocytes Percent Auto 41.4 % (20-40); MANUAL DIFF FLAG SCAN; Mean Corpuscular HGB Conc 33.3 g/dl (31.0-36.0); Mean Corpuscular Hemoglobin 31.1 pg (27.0-33.0); Mean Corpuscular Volume 93.3 fL (80.0-98.0); Monocytes Absolute Auto 1.9 X10*3/uL (0.1-1.2); Monocytes Percent Auto 29.1 % (2-11); Neutrophils Absolute Auto 1.8 x10*3/uL (2.0-8.3); Neutrophils Percent Auto 26.8 % (45-73); PLT CLUMP 1; Red Blood Count 3.15 X10*6/uL (4.60-5.80); Red Cell Distribution Width 25.3 % (11.0-16.0); SCAN SMEAR FLAG 1
[2024-11-26 09:53] LABS: Platelet Count 150 X10*3/uL (160-400); White Blood Count 6.6 X10*3/uL (4.8-10.8)
[2024-11-26 10:07] LABS: Anion Gap 13 (12-20); Blood Urea Nitrogen 21 mg/dL (9-16); Carbon Dioxide 28 mmol/L (22-29); Chloride 104 mmol/L (96-108); Estimated Glomerular Filt Rate > 60; Potassium 3.8 mmol/L (3.3-5.1); Sodium 141 mmol/L (135-145)
[2024-11-26 10:10] LABS: SLIDE REVIEW VERIFIED
== END 2024-11-26 09:00 | disposition home or self-care (01) ==
LOC: HO.XRAY 08:59
PROVIDERS: PCP Family Medicine; Visit Provider Family Medicine
DX: I10 Essential (primary) hypertension (principal); D64.9 Anemia, unspecified; M25.551 Pain in right hip
CPT/HCPCS: 36415; 73564; 80051; 82565; 84520; 85025

== ENCOUNTER 2024-12-03 10:38 | Outpatient (AMB) | payer MEDICARE, OTHER, SELFPAY ==
--- NOTE | 2024-12-03 10:57 | A.OFFVIS_ITS ---
Vital Signs 12/03/24 10:59 Height 6 ft 6 in Weight 253 lb BMI 29.2 Intake Visit Reasons: OV - Bilateral Knee Aspirations Intake Note: Keegan is an 88 year old male who presents today for a follow up of bilateral knee OA, last injection . Patient reports more pain in is right leg. lateral side constant pain, starts in his posterior aspect of thigh numbing pain . Allergies adhesive [ADHESIVE] Allergy (Intermediate, Verified 10/24/24 02:55) RASH, BLISTERS atenolol [Atenolol] Allergy (Mild, Verified 10/24/24 02:55) RASH sotalol [Sotalol] Allergy (Mild, Verified 10/24/24 02:55) RASH atorvastatin [From Lipitor] Adverse Reaction (Mild, Verified 10/24/24 02:55) SEVERE ACHES AND PAINS Medication List - Last Reconciled 12/03/24 by Ana Santos PA-C acebutolol 400 mg PO DAILY acebutolol 200 mg PO BEDTIME benzonatate 200 mg PO TID PRN celecoxib 1 cap PO DAILY dexamethasone 6 mg PO DAILY doxazosin 1 tab PO DAILY finasteride 5 mg PO BEDTIME furosemide 1 tab PO QAM lisinopril 20 mg PO DAILY potassium chloride ER (Klor-Con M) 20 mEq PO DAILY rosuvastatin 1 tab PO DAILY spironolactone 25 mg PO QAM warfarin 4 mg PO DAILY@1800 HPI HPI OV - Bilateral Knee Aspirations: Details: 88-year-old gentleman returns to the office today for a follow-up bilateral knee pain and swelling. He was last seen in August by Dr. Hernandez where he had both knees aspirated and injected he was having some relief however over time he develops recurrent swelling with limitation of daily activities. He is on Coumadin. [facility] Medical History Atrial fibrillation HTN (hypertension) Surgical History Aortic valve replaced History of cholecystectomy Social History (System 10/01/23 @ 08:51 by Pamela Childers) Household Members: Spouse Housing: House Do you presently have visiting nurse or other home services: No Alcohol intake: never Patient Tobacco Use Status: Never used Tobacco service: No Current occupational status: retired Review of Systems Const All systems reviewed & are unremarkable except as noted in HPI and below Physical Exam Vital Signs: BMI result Body Mass Index 29.2 Extrem Other: Bilateral knee skin is intact no open wounds or abrasions. large bilateral knee effusions. Full range of motion neurovascularly intact. Office Procedures AMB Joint Injection/Aspiration Joint Injection/Aspiration Primary Site: right knee (120cc hemarthrosis) Secondary Site: left knee (220 cc joint fluid ) Prep: site was prepped using aseptic technique and injection warnings given Injected: 40 mg of, with 1 mL of, with 8 mL of, 1% plain lidocaine and decadron Approach Used: lateral parapatellar Procedure: The patient tolerated the procedure well and there was some relief with the local anesthesia Coding 73500 - Glenohumeral/Tronchanteric Bursa/Intraarticular Procedure code (CPT) selection complete Assessment & Plan Assessment & Plan (1) Bilateral knee effusions: Code(s): M25.461 - Effusion, right knee; M25.462 - Effusion, left knee Category: Medical Plan: We discussed options today which include repeat aspiration and injection. The patient did consent and tolerate the procedure well. Left knee was aspirated of 220 cc of joint fluid in the right knee was aspirated of 120 cc of hemarthrosis. Both knees were reinjected with steroid. He will increase activities as tolerated see us back in 3 months as needed. Coding Level of Care Code Est Pt Level 3 (91234) Complex EM visit Add On G2211 Diagnoses Bilateral knee effusions M25.461; M25.462 CPT Codes Coding - Joint 7: 11952 - Glenohumeral/Tronchanteric Bursa/Intraarticular ([id number])
[2024-12-03 10:59] VITALS: BMI 29.2
== END 2024-12-03 11:35 | disposition home or self-care (01) ==
PROVIDERS: PCP Family Medicine; Visit Provider Physician Assistant
DX: M25.461 Effusion, right knee (principal); M25.462 Effusion, left knee
CPT/HCPCS: 20610; 99213

== ENCOUNTER → 2024-12-03 10:38 | Outpatient (BNVA) | payer MEDICARE, OTHER, SELFPAY | PROVIDERS: PCP Family Medicine; Visit Provider Physician Assistant | DX: M25.461 Effusion, right knee (principal); M25.462 Effusion, left knee | CPT/HCPCS: 20610; 99212; J0665; J1100; J2003 ==

== ENCOUNTER 2025-01-04 19:42 | Emergency (ER) | payer MEDICARE, OTHER, SELFPAY ==
--- NOTE | ~2025-01-04 | XR_ITS ---
CLINICAL HISTORY: productive cough 2 view chest x-ray Comparison: CR/SR - XR CHEST 1V - 10/12/22 21:53 EST Findings: Mild chronic interstitial prominence. No effusion. No pneumothorax. Cardiac and mediastinal contours are prominent but stable. No acute fracture. IMPRESSION: No overt edema or focal consolidation. Mild chronic appearing interstitial prominence. This document has been electronically signed by: Steve Trejo MD on 01/04/2025 21:34:29
[2025-01-04 19:46] VITALS: BP 128/61; PULSE 68; RESP 20; TEMP 36.4; O2SAT 96; BMI 28.8
--- NOTE | 2025-01-04 19:50 | ECG_ITS ---
Test Reason : CHEST PRESSURE Blood Pressure : */* mmHG Vent. Rate : 69 BPM Atrial Rate : * BPM P-R Int : * ms QRS Dur : 152 ms QT Int : 432 ms P-R-T Axes : * -37 75 degrees QTcB Int : 462 ms Atrial fibrillation Left axis deviation Left bundle branch block Abnormal ECG When compared with ECG of 12-Oct-2022 21:22, Left bundle branch block has replaced Non-specific intra-ventricular conduction delay Referred By: Guera Huber Electronically Signed By: Gulshan Tejeda
--- NOTE | 2025-01-04 20:25 | ED.GENADULT ---
HPI - General Adult General Chief complaint: Upper Respiratory Symptoms Stated complaint: Flu like symptoms Time Seen by Provider: 01/04/25 23:39 Source: patient Mode of arrival: ambulatory Limitations: no limitations History of Present Illness ED Provider: HPI narrative: Patient's history of hypertension mechanical aortic valve on Coumadin was not no rubor for last 3 weeks came back 4 days ago complaining of cough congestion for last 10 days with mucopurulent phlegm no fever no chills hacking cough no history of lung disease in the past Related Data Home Medications ?Medication ?Instructions ?Recorded ?Confirmed acebutolol 200 mg capsule 200 mg PO BEDTIME 04/17/21 12/03/24 acebutolol 200 mg capsule 400 mg PO DAILY 04/17/21 12/03/24 doxazosin 4 mg tablet 1 tab PO DAILY 04/17/21 12/03/24 finasteride 5 mg tablet 5 mg PO BEDTIME 04/17/21 12/03/24 furosemide 80 mg tablet 1 tab PO QAM 04/17/21 12/03/24 lisinopril 20 mg tablet 20 mg PO DAILY 04/17/21 12/03/24 rosuvastatin 40 mg tablet 1 tab PO DAILY 04/17/21 12/03/24 potassium chloride 20 mEq 20 meq PO DAILY 07/19/21 12/03/24 tablet,extended release(part/cryst) (Klor-Con M) spironolactone 25 mg tablet 25 mg PO QAM 07/19/21 12/03/24 celecoxib 200 mg capsule 1 cap PO DAILY 11/02/21 12/03/24 warfarin 4 mg tablet 4 mg PO DAILY@1800 11/02/21 12/03/24 Previous Rx's ?Medication ?Instructions ?Recorded dexamethasone 6 mg tablet 6 mg PO DAILY #5 tabs 11/07/21 benzonatate 200 mg capsule 200 mg PO TID PRN cough #14 caps 10/12/22 albuterol sulfate 90 mcg/actuation 2 puff inhalation Q6H PRN 01/05/25 aerosol inhaler shortness of breath or wheezing #8.5 grams benzonatate 200 mg capsule 200 mg PO TID PRN cough #20 caps 01/05/25 cefuroxime axetil 500 mg tablet 500 mg PO BID 7 days #14 tabs 01/05/25 doxycycline hyclate 100 mg tablet 100 mg PO BID #20 tabs 01/05/25 prednisone 20 mg tablet 40 mg (2 x 20 mg) PO DAILY #10 tabs 01/05/25 Allergies Allergy/AdvReac Type Severity Reaction Status Date / Time adhesive [ADHESIVE] Allergy Intermediate RASH, Verified 01/04/25 19:52 BLISTERS atenolol [Atenolol] Allergy Mild RASH Verified 01/04/25 19:52 sotalol [Sotalol] Allergy Mild RASH Verified 01/04/25 19:52 atorvastatin [From Lipitor] AdvReac Mild SEVERE Verified 01/04/25 19:52 ACHES AND PAINS Review of Systems Review of Systems: Yes all other systems are reviewed and are negative [facility] Past Medical History Medical History Atrial fibrillation HTN (hypertension) Surgical History History of cholecystectomy Aortic valve replaced Social History Social History Household Members: Spouse Housing: House Do you presently have visiting nurse or other home services: No Alcohol intake: never Patient Tobacco Use Status: Never used Tobacco Smoked in Last 30 Days: No Use of substances other than those prescribed or required for medical reasons: No Advance Directives: No Advance Directives Information Provided: No service: No Current occupational status: retired Physical Exam ED Vital Signs: Vital Signs - 24 hr 01/04/25 19:46 01/04/25 23:10 01/04/25 23:27 Temperature 97.5 F 97.1 F Pulse Rate 68 68 Respiratory Rate 20 20 Blood Pressure 128/61 139/67 Pulse Oximetry 96 97 Oxygen Delivery Method Room Air Room Air Room Air 01/05/25 00:00 01/05/25 01:10 Temperature 97.9 F Pulse Rate 61 74 Respiratory Rate 16 18 Blood Pressure 127/67 Pulse Oximetry 96 Oxygen Delivery Method Room Air BMI result Body Mass Index 28.8 Appearance: Alert. Oriented X3. No acute distress. Eyes: Mild pallor ENT: Pharynx normal. Oral Mucosa moist Neck: Normal inspection. Neck supple. CVS: Normal heart rate and rhythm. Pulses normal. Respiratory: No respiratory distress. Equal air entry bilateral, bilateral prolonged expiration with cough Abdomen: Soft and nontender. Bowel sounds are present, no mass palpable, no CVA tenderness Skin: Skin warm and dry. Normal skin color. Normal skin turgor. Extremities: No lower extremity edema. No calf tenderness Neuro: Oriented X 3. Course Course Course Narrative: This is a Rapid Medical Examination (RME) performed by Stephen Huber PA-C in triage. Full HPI, ROS, assessment and treatment plan per primary provider in the Main ED. 89 yo male hx of mechanical aortic valve on Coumadin, paroxysmal atrial fibrillation, AVR, HTN, anemia, BPH and osteoarthritis here for eval of productive cough and head congestion x 1.5 weeks. no fever, chills, sob. admits to chest heaviness . recent trip to [facility] - returned 4 days ago. symptoms began while there. Plan: labs, viral swabs, cxr Medications Administered Discontinued Medications Generic Name Dose Route Start Last Admin Trade Name Freq PRN Reason Stop Dose Admin Benzonatate 200 mg 01/05/25 00:29 01/05/25 00:49 Benzonatate 100 Mg Capsule PO 01/05/25 00:30 200 mg ONCE ONE Administration Cefuroxime Axetil 500 mg 01/05/25 00:30 01/05/25 00:49 Cefuroxime Axetil 500 Mg Tablet PO 01/05/25 00:31 500 mg ONCE ONE Administration Albuterol Sulfate 2.5 mg/ 0 mg 01/05/25 00:29 01/05/25 01:09 Albuterol/Ipratropium 3 ml INHALE 01/05/25 00:30 5 dose ONCE ONE Administration Doxycycline Monohydrate 100 mg 01/05/25 00:29 01/05/25 00:49 Doxycycline Monohydrate 100 Mg Capsule PO 01/05/25 00:30 100 mg ONCE ONE Administration Prednisone 40 mg 01/05/25 00:29 01/05/25 00:49 Prednisone 20 Mg Tablet PO 01/05/25 00:30 40 mg ONCE ONE Administration Medical Decision Making Medical Decision Making [facility] Narrative: Patient has acute bronchitis negative for pneumonia felt better after nebulizer treatment will discharge patient home on antibiotics prednisone and inhaler Differential Diagnosis Differential Diagnoses: The differential diagnosis associated with the presentation includes Bronchitis/pneumonia/CHF Lab Data [facility] Lab Attestation statement: I reviewed the patient's lab results. 01/04/25 20:21 01/04/25 20:21 Labs: Lab Results 01/04/25 Range/Units 20:21 WBC 8.4 (4.8-10.8) X10*3/uL RBC 2.99 L (4.60-5.80) X10*6/uL Hgb 9.1 L (14.0-18.0) g/dl Hct 27.5 L (42.0-52.0) % MCV 92.0 (80.0-98.0) fL MCH 30.4 (27.0-33.0) pg MCHC 33.1 (31.0-36.0) g/dl RDW 23.9 H (11.0-16.0) % Plt Count 126 L (160-400) X10*3/uL MPV Not Reportable Immature Gran % (Auto) 1.9 H (0.0-0.4) % Neut % (Auto) 39.4 L (45-73) % Lymph % (Auto) 19.3 L (20-40) % [place] % (Auto) 37.9 H (2-11) % Eos % (Auto) 1.3 (0-4) % Baso % (Auto) 0.2 (0-2) % Lymph # (Auto) 1.6 (1.2-4.9) X10*3/uL [place] # (Auto) 3.2 H (0.1-1.2) X10*3/uL Eos # (Auto) 0.1 (0.0-0.4) X10*3/uL Baso # (Auto) 0.0 (0.0-0.2) X10*3/uL Abs Immat Gran (auto) 0.16 H (0.00-0.03) X10*3/uL Absolute Neuts (auto) 3.3 (2.0-8.3) x10*3/uL Absolute Nucleated RBC 0.000 (0.0-0.012) X10*3/uL Nucleated RBC % (auto) 0.0 (0.0-0.2) /100WBC Smear Tech's Comments VERIFIED PT 39.0 H D (10.9-12.4) SEC INR 3.3 H (0.9-1.1) Sodium 141 (135-145) mmol/L Potassium 3.3 (3.3-5.1) mmol/L Chloride 100 (96-108) mmol/L Carbon Dioxide 28 (22-29) mmol/L Anion Gap 16 (12-20) BUN 18 H (9-16) mg/dL Creatinine 1.13 (0.5-1.4) mg/dL Estim Creat Clear Calc 61.0 Estimated GFR > 60 Random Glucose 100 (60-115) mg/dL Calcium 8.5 D (8.4-10.2) mg/dL Magnesium 2.2 (1.6-2.6) mg/dL Total Bilirubin 0.6 (0.0-1.0) mg/dL AST 42 H (5-37) U/L ALT 22 (0-40) U/L Alkaline Phosphatase 66 (39-117) U/L Total Protein 7.0 (6.5-8.0) g/dL Albumin 3.6 (3.5-5.0) g/dL Influenza Type A (PCR) NEGATIVE (Negative) Influenza Type B (PCR) NEGATIVE (Negative) RSV RNA Qual (PCR) NEGATIVE (Negative) SARS-CoV-2 RNA (RT-PCR) NEGATIVE (Negative) Independent Interpretation I performed an independent interpretation of an: Plain X-Ray Radiology Impression Discussion of test interpretation with radiology: I have reviewed the radiologist's reading. Radiologist Impression: Close Chest X-Ray (Signed) Steve Trejo - 01/04/25 Knee X-Ray (Signed) Estuardo Puente - 11/26/[address] (Signed) Woody Hathaway - 06/15/24 Chest X-Ray (Signed) Modesta Palmer - 10/12/[address] (Signed) Lexx Bryson - 06/10/22 Chest X-Ray (Signed) Ahmet Barger - 06/10/22 Chest X-Ray (Signed) Erasmo Larsen - 11/02/21 Chest X-Ray (Signed) Kieran Elise - 10/24/21 Chest X-Ray (Signed) Isaiah Simpson - 04/17/21 Hip X-Ray (Signed) Erasmo Larsen - 09/27/20 Launch?[facility] [address] [id number] XRay Report Signed Patient: Keegan Fagan Jr MR#: [id number] : 1935 Acct:[id number] Age/Sex: 89 / M ADM Date: 01/04/25 Loc: HO.ED Attending Dr: Ordering Physician: Guera Huber Date of Service: 01/04/25 Procedure(s): XR chest 2V Accession Number(s): [id number] cc: Milton Durán MD; Guera Huber~ CLINICAL HISTORY: productive cough 2 view chest x-ray Comparison: CR/SR - XR CHEST 1V - 10/12/22 21:53 EST Findings: Mild chronic interstitial prominence. No effusion. No pneumothorax. Cardiac and mediastinal contours are prominent but stable. No acute fracture. IMPRESSION: No overt edema or focal consolidation. Mild chronic appearing interstitial prominence. This document has been electronically signed by: Steve Trejo MD on 01/04/2025 21:34:29 Discharge Plan Discharge Clinical Impression: Acute bronchitis Patient Disposition: Home, Self-Care Instructions: Acute Bronchitis (ED) Additional Instructions: Take antibiotic as prescribed Prednisone and inhaler as prescribed Your chest x-ray negative for pneumonia Your COVID flu and RSV test negative Drink plenty of fluids Report to ER if not better Prescriptions: New prednisone 20 mg tablet 40 mg PO DAILY Qty: 10 0RF cefuroxime axetil 500 mg tablet 500 mg PO BID 7 Days Qty: 14 0RF albuterol sulfate 90 mcg/actuation HFA aerosol inhaler 2 puff inhalation Q6H PRN (Reason: shortness of breath or wheezing) Qty: 8.5 0RF doxycycline hyclate 100 mg tablet 100 mg PO BID Qty: 20 0RF benzonatate 200 mg capsule 200 mg PO TID PRN (Reason: cough) Qty: 20 0RF No Action lisinopril 20 mg tablet 20 mg PO DAILY furosemide 80 mg tablet 1 tab PO QAM doxazosin 4 mg tablet 1 tab PO DAILY acebutolol 200 mg capsule 400 mg PO DAILY finasteride 5 mg tablet 5 mg PO BEDTIME rosuvastatin 40 mg tablet 1 tab PO DAILY acebutolol 200 mg capsule 200 mg PO BEDTIME celecoxib 200 mg capsule 1 cap PO DAILY warfarin 4 mg tablet 4 mg PO DAILY@1800 dexamethasone 6 mg tablet 6 mg PO DAILY Qty: 5 0RF benzonatate 200 mg capsule 200 mg PO TID PRN (Reason: cough) Qty: 14 0RF potassium chloride [Klor-Con M20] 20 mEq tablet,ER particles/crystals 20 meq PO DAILY spironolactone 25 mg tablet 25 mg PO QAM Print Language: Upper Sorbian
[2025-01-04 20:40] LABS: Basophils Percent Auto 0.2 % (0-2); Eosinophils Absolute Auto 0.1 X10*3/uL (0.0-0.4); Eosinophils Percent Auto 1.3 % (0-4); Hematocrit 27.5 % (42.0-52.0); Hemoglobin 9.1 g/dl (14.0-18.0); Imm Gran Abs Auto 0.16 X10*3/uL (0.00-0.03); Imm Gran Pct Auto 1.9 % (0.0-0.4); Lymphocytes Absolute Auto 1.6 X10*3/uL (1.2-4.9); Lymphocytes Percent Auto 19.3 % (20-40); MANUAL DIFF FLAG SCAN; Mean Corpuscular HGB Conc 33.1 g/dl (31.0-36.0); Mean Corpuscular Hemoglobin 30.4 pg (27.0-33.0); Monocytes Absolute Auto 3.2 X10*3/uL (0.1-1.2); Monocytes Percent Auto 37.9 % (2-11); Neutrophils Absolute Auto 3.3 x10*3/uL (2.0-8.3); Neutrophils Percent Auto 39.4 % (45-73); Platelet Count 126 X10*3/uL (160-400); Red Blood Count 2.99 X10*6/uL (4.60-5.80); Red Cell Distribution Width 23.9 % (11.0-16.0); SCAN SMEAR FLAG 1; White Blood Count 8.4 X10*3/uL (4.8-10.8)
[2025-01-04 20:43] LABS: INTERNATIONAL NORM RATIO 3.3 (0.9-1.1)
[2025-01-04 20:57] LABS: Alanine Aminotransferase 22 U/L (0-40); Albumin Level 3.6 g/dL (3.5-5.0); Alkaline Phosphatase 66 U/L (39-117); Anion Gap 16 (12-20); Aspartate Amino Transferase 42 U/L (5-37); Bilirubin Total 0.6 mg/dL (0.0-1.0); Blood Urea Nitrogen 18 mg/dL (9-16); Calcium 8.5 mg/dL (8.4-10.2); Carbon Dioxide 28 mmol/L (22-29); Chloride 100 mmol/L (96-108); Estimated Glomerular Filt Rate > 60; Glucose Random 100 mg/dL (60-115); Magnesium 2.2 mg/dL (1.6-2.6); Potassium 3.3 mmol/L (3.3-5.1); Sodium 141 mmol/L (135-145)
[2025-01-04 21:00] LABS: SLIDE REVIEW VERIFIED
[2025-01-04 21:14] LABS: Influenza A PCR NEGATIVE (Negative); Influenza B PCR NEGATIVE (Negative); Resp Syncy Virus RNA Qual PCR NEGATIVE (Negative); SARS COV2 PCR INHOUSE NEGATIVE (Negative)
[2025-01-04 23:10] VITALS: BP 139/67; PULSE 68; RESP 20; TEMP 36.2; O2SAT 97
[2025-01-05] VITALS: BP 127/67; PULSE 61; RESP 16; TEMP 36.6; O2SAT 96
[2025-01-05] MEDS: cefuroxime axetiL 500 MG TABLET PO (00:49)
[2025-01-05] MEDS: Doxycycline Monohydrate 100 MG CAPSULE PO (00:49)
[2025-01-05] MEDS: predniSONE 20 MG TABLET 40 MG PO (00:49)
[2025-01-05] MEDS: Benzonatate 100 MG CAPSULE 200 MG PO (00:49)
[2025-01-05] MEDS: Albuterol Sulfate 2.5 MG, Albuterol/Iprat 2.5/0.5MG 3 ML 3 ML INHALE (01:09)
[2025-01-05 01:10] VITALS: PULSE 74; RESP 18; O2SAT 97
[2025-01-05] MEDS: Albuterol Sulfate 90 MCG 8 GM INHALER 2 PUFF INHALE (02:26)
[2025-01-05 02:32] VITALS: BP 110/47; PULSE 75; RESP 20; TEMP 36.6; O2SAT 93
[2025-01-05 02:34] VITALS: BP 105/55; PULSE 64; RESP 16; TEMP 36.4; O2SAT 98
== END 2025-01-05 02:42 | disposition home or self-care (01) ==
PROVIDERS: Physician Assistant Medical; Emergency Provider Internal Medicine; PCP Family Medicine
DX: J40 Bronchitis, not specified as acute or chronic (principal); R05.9 Cough, unspecified; R09.89 Other specified symptoms and signs involving the circulatory and respiratory systems; R07.89 Other chest pain; Z03.818 Encounter for observation for suspected exposure to other biological agents ruled out; Z79.899 Other long term (current) drug therapy
CPT/HCPCS: 0241U; 71046; 80053; 83735; 85025; 85610; 93005; 94640; 99284; 99285

== ENCOUNTER → 2025-01-04 19:50 | Outpatient (BNV) | payer MEDICARE, OTHER, SELFPAY | PROVIDERS: Emergency Provider Internal Medicine; PCP Family Medicine; Visit Provider Internal Medicine Cardiovascular Disease | DX: I48.91 Unspecified atrial fibrillation (principal); I44.7 Left bundle-branch block, unspecified; I45.9 Conduction disorder, unspecified | CPT/HCPCS: 93010 ==

== ENCOUNTER → 2025-01-04 19:50 | Outpatient (BNV) | payer MEDICARE, OTHER, SELFPAY | PROVIDERS: PCP Family Medicine; Visit Provider Radiology Vascular & Interventional Radiology | DX: R05.9 Cough, unspecified (principal) | CPT/HCPCS: 71046 ==

== ENCOUNTER 2025-01-10 04:26 | Inpatient (IN) | payer MEDICARE, OTHER, SELFPAY ==
[2025-01-10] VITALS (12 sets, daily range): BP systolic 117–171; BP diastolic 45–84; PULSE 48–85; RESP 14–19; TEMP 35.7–36.7; O2SAT 95–98; BMI 26.2; BMI 30.3
--- NOTE | 2025-01-10 | ECG_ITS ---
Test Reason : weakness Blood Pressure : */* mmHG Vent. Rate : 48 BPM Atrial Rate : * BPM P-R Int : * ms QRS Dur : 134 ms QT Int : 476 ms P-R-T Axes : * -32 -19 degrees QTcB Int : 425 ms Atrial fibrillation with slow ventricular response Left axis deviation Non-specific intra-ventricular conduction block Minimal voltage criteria for LVH, may be normal variant ( R in aVL ) Cannot rule out Septal infarct , age undetermined Abnormal ECG When compared with ECG of 04-Jan-2025 20:29, Non-specific intra-ventricular conduction block has replaced Left bundle branch block Minimal criteria for Septal infarct are now Present Referred By: Generic ED Physician Electronically Signed By: MARITO BRANHAM MD
--- NOTE | ~2025-01-10 | XR_ITS ---
CLINICAL HISTORY: Weakness, cough, rule out pneumonia 1 view chest x-ray Comparison: CR - XR CHEST 2V - 01/04/25 21:07 EST Findings: Lungs are well inflated. Sternotomy wires are evident. Cardiac silhouette is mildly enlarged. Central interstitial markings are mildly prominent. No dense areas of consolidation. No pleural effusion or pneumothorax. IMPRESSION: Enlargement of the cardiac silhouette with mild interstitial prominence. This can be seen with edema, bronchitis/bronchiolitis, atelectasis, or interstitial lung disease. This document has been electronically signed by: Awais Renterai MD on 01/10/2025 06:36:40
--- NOTE | ~2025-01-10 | CT_ITS ---
CLINICAL HISTORY: Syncope CT head without contrast Comparison: CT/SR - CT HEAD/BRAIN WO IV CON - 01/10/25 05:19 EST Findings: No evidence of acute territorial infarct. There is patchy low density in the periventricular and subcortical white matter. Diffuse volume loss is noted. No hydrocephalus. No hemorrhage, mass effect, mass lesion or midline shift. No abnormal extra-axial fluid. No calvarial fracture. Paranasal sinuses demonstrate mild mucoperiosteal thickening. Right globe prosthesis again noted. Impression: No evidence of acute process. Chronic changes. This document has been electronically signed by: Steve Trejo MD on 01/15/2025 16:20:58
--- NOTE | ~2025-01-10 | CT_ITS ---
CLINICAL HISTORY: Fall, head strike, on warfarin R O bleed, fx CT head without contrast Comparison: CT/REG/LA/SR - CT HEAD/BRAIN WO CON - 06/10/22 18:12 EDT Findings: No evidence of acute territorial infarct. There is patchy low density in the periventricular and subcortical white matter. Diffuse volume loss is noted. No hydrocephalus. No hemorrhage, mass effect, mass lesion or midline shift. No abnormal extra-axial fluid. No calvarial fracture. Paranasal sinuses exhibit opacification of the right maxillary sinus and mucoperiosteal thickening of the ethmoid air cells. Right globe prosthesis noted. Impression: No evidence of acute process. Ischemic microangiopathy and diffuse volume loss. This document has been electronically signed by: Steve Trejo MD on 01/10/2025 06:05:53
--- NOTE | ~2025-01-10 | CT_ITS ---
CLINICAL HISTORY: Fall, head strike, neck pain R O fracture CT cervical spine without contrast Comparison: 10/04/2019 Findings: There is straightening of the normal cervical lordosis. No fracture or acute malalignment. Multilevel degenerative changes with disc space narrowing throughout the cervical spine. The facet joints are normally imbricated. No prevertebral soft tissue edema. Lung apicies demonstrate no acute process. The thyroid gland is heterogeneous with multiple nodules. Impression: Multilevel degenerative changes without evidence of acute fracture or acute malalignment. This document has been electronically signed by: Steve Trejo MD on 01/10/2025 06:06:06
--- NOTE | 2025-01-10 04:51 | ED_ITS ---
HPI - Fall General Chief Complaint: Fall Stated Complaint: Fall,-HS,+thinners,LAC L forearm, &weakness x2d Time Seen by Provider: 01/10/25 04:51 Source: patient Mode of arrival: EMS Limitations: no limitations History of Present Illness ED Provider: Dr. Timmy Rodriguez HPI Narrative: 89-year-old male with a history of hypertension, mechanical aortic valve on warfarin who presents emergency department for evaluation of progressive weakness of both upper and lower extremities, with weakness this morning, unable to stand from the toilet which caused him to fall. The patient states that he spent the month of December in [place]. He states that he returned home a proximally 1-1/2 weeks prior and since that time he was had a cough. He states that he was also been noticing weakness in his extremities since Friday01/05/2025 (5 days). He states that the weakness started in his legs and seems to have moved up his legs and now he also has weakness in his hands and arms. The patient was seen in the emergency department on 01/04/2025 and was diagnosed with bronchitis. He was prescribed prednisone, cefuroxime, doxycycline, albuterol and Tessalon Perles. The patient states that his doctor told him to not take the antibiotics so he was not been taking patient but he did complete a 5 day course of prednisone 40 mg once a day. Prior to coming to the emergency department, the patient states that he was on the toilet but was too weak to stand. He states that his dragged a chair into the bathroom which he used to prop himself up. He states that once he was standing, he felt like he could walk but when he took 1 step, his legs gave out on him and he fell to his side striking his head on the wall of the bathroom. He denied any loss of consciousness. The patient does have a mechanical aortic valve and does take warfarin. He states he checks his INR at home but can not tell me what the last reading was. He states that his doctor tries to keep his INR at 2.5-2.6 range Related Data Home Medications ?Medication ?Instructions ?Recorded ?Confirmed acebutolol 200 mg capsule 200 mg PO BEDTIME 04/17/21 01/10/25 acebutolol 200 mg capsule 400 mg PO DAILY 04/17/21 01/10/25 doxazosin 4 mg tablet 4 mg PO DAILY 04/17/21 01/10/25 finasteride 5 mg tablet 5 mg PO BEDTIME 04/17/21 01/10/25 furosemide 80 mg tablet 80 mg PO DAILY 04/17/21 01/10/25 lisinopril 20 mg tablet 40 mg PO DAILY 04/17/21 01/10/25 warfarin 4 mg tablet 4 mg PO DAILY@1800 11/02/21 01/10/25 furosemide 40 mg tablet 40 mg PO BEDTIME 01/10/25 01/10/25 lisinopril 20 mg tablet 20 mg PO BEDTIME 01/10/25 01/10/25 Previous Rx's ?Medication ?Instructions ?Recorded benzonatate 200 mg capsule 200 mg PO TID PRN cough #14 caps 10/12/22 albuterol sulfate 90 mcg/actuation 2 puff inhalation Q6H PRN 01/05/25 aerosol inhaler shortness of breath or wheezing #8.5 grams Allergies Allergy/AdvReac Type Severity Reaction Status Date / Time adhesive [ADHESIVE] Allergy Intermediate RASH, Verified 01/10/25 04:46 BLISTERS atenolol [Atenolol] Allergy Mild RASH Verified 01/10/25 04:46 sotalol [Sotalol] Allergy Mild RASH Verified 01/10/25 04:46 atorvastatin [From Lipitor] AdvReac Mild SEVERE Verified 01/10/25 04:46 ACHES AND PAINS Review of Systems 2 Review of Systems: Yes all other systems are reviewed and are negative PMFSH Past Medical History Medical History Atrial fibrillation HTN (hypertension) Surgical History History of cholecystectomy Aortic valve replaced Social History Social History Household Members: Spouse Housing: House Do you presently have visiting nurse or other home services: No Alcohol intake: never Patient Tobacco Use Status: Never used Tobacco Smoked in Last 30 Days: No Use of substances other than those prescribed or required for medical reasons: No Do you feel safe in your current relationship?: Yes Is there a partner from a previous relationship who is making you feel unsafe now?: No Are you made to feel afraid or neglected: No Advance Directives: No Advance Directives Information Provided: Yes Do you have a plan to hurt others: No Plan Recently lost weight without trying: No Eating poorly because of decreased appetite: No Poor oral hygiene: No service: No Current occupational status: retired Physical Exam 2 Vital Signs: Vital Signs: Last Vital Signs Temp 97.9 F 01/11/25 02:37 Pulse 59 01/11/25 02:37 Resp 20 01/11/25 02:37 BP 146/64 H 01/11/25 02:37 Pulse Ox 95 01/11/25 02:37 O2 Del Method Room Air 01/11/25 02:37 BMI result Body Mass Index 26.2 Vital signs revealed a low heart rate of 48 and an elevated blood pressure of 159/73 Exam: General: Awake, alert in no distress Head: Normocephalic, atraumatic EENT: 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, left pupil is 4 mm and react, Lids normal, sclera normal, conjunctiva normal, nose normal , ears normal, throat without erythema or exudates Neck: Supple, no adenopathy Lung: breath sounds symmetric, no wheezing, rales or rhonchi Chest: symmetric movement, nontender Heart: regular rate and rhythm, normal S1, mechanical S2 no murmurs or rubs Abdomen: soft, non-tender, nondistended, normal bowel sounds Back: no vertebral tenderness, no CVAT Extremities: The patient was able to minimally raise his legs off the stretcher, patient has weak vice president sales and marketing strength , he was able to hold his arms up against gravity but has significant weakness Neuro: Awake, alert, oriented, normal speech, cranial nerves intact, weakness of both upper and lower extremities, he was unable to obtain reflexes on the patient Skin: 3 cm left forearm skin tear Psych: Pleasant, cooperative Medications Administered Generic Name Dose Route Start Last Admin Trade Name Freq PRN Reason Stop Dose Admin Acetaminophen 650 mg 01/10/25 17:30 01/10/25 19:27 Acetaminophen 325 Mg Tablet PO 01/14/25 17:31 650 mg DAILY@1730 CHINO Administration Finasteride 5 mg 01/10/25 21:00 01/10/25 21:21 Finasteride 5 Mg Tablet PO 5 mg BEDTIME CHINO Administration Furosemide 40 mg 01/10/25 21:00 01/10/25 21:21 Furosemide 40 Mg Tablet PO 40 mg BEDTIME CHINO Administration Protocol Immune Globulin 20 gm in 200 mls @ 55 mls/hr 01/10/25 18:00 01/11/25 00:25 Gammagard 10% IV 01/14/25 21:39 Infused DAILY@1800 CHINO Infusion As Directed Immune Globulin 20 gm in 200 mls @ 55 mls/hr 01/10/25 21:40 01/11/25 03:59 Gammagard 10% IV 01/15/25 01:19 Infused DAILY@2140 [facility]INO Infusion As Directed Immune Globulin 5 gm in 50 mls @ 55 mls/hr 01/11/25 01:20 01/11/25 05:04 Gammagard 10% IV 01/15/25 02:15 Infused DAILY@0120 [facility] Infusion As Directed Lisinopril 20 mg 01/10/25 21:00 01/10/25 21:20 Lisinopril 20 Mg Tablet PO 20 mg BEDTIME CHINO Administration Sodium Chloride 3 ml 01/10/25 16:00 01/11/25 00:29 0.9 % Sodium Chloride Flush 3 Ml Syringe IVFLUSH 3 ml QSHIFT [facility] Administration Warfarin Sodium 4 mg 01/10/25 18:00 01/10/25 19:25 Warfarin Sodium 4 Mg Tablet PO Not Given DAILY@1800 [facility] Discontinued Medications Generic Name Dose Route Start Last Admin Trade Name Freq PRN Reason Stop Dose Admin Bacitracin 1 appl 01/10/25 15:31 01/10/25 19:23 Bacitracin Oint 0.9 Gm Packet TOPICAL 01/10/25 15:32 1 appl ONCE ONE Administration Medical Decision Making Medical Decision Making [facility] Narrative: 89-year-old male with a history of hypertension, mechanical aortic valve on warfarin who presents emergency department for evaluation of progressive weakness of both upper and lower extremities, with weakness this morning, unable to stand from the toilet which caused him to fall. The patient states that he spent the month of December in [facility]. He states that he returned home a proximally 1-1/2 weeks prior and since that time he was had a cough. The patient was seen in the emergency department on 01/04/2025 and was diagnosed with bronchitis. He was prescribed prednisone, cefuroxime, doxycycline, albuterol and Tessalon Perles. The patient states that his doctor told him to not take the antibiotics the patient did did complete a 5 day course of prednisone 40 mg once a day. Patient states he has noticed progressive ascending weakness starting in his legs and now involving his arms. Patient's physical examination did reveal symmetric weakness in his lower extremities as well as upper extremities with a weak vice president sales and marketing with lack of deep tendon reflexes in his upper and lower extremities Differential diagnosis: ?Includes but is not limited to stroke, intracranial bleed, skull fracture, cervical fracture, Guillain-Tuscarora syndrome, steroid induced myopathy, pneumonia, bronchitis, viral bronchitis, electrolyte abnormalities, anemia Course: My independent interpretation patient's laboratory evaluation is as follows: WBC was elevated 11,900 with 6% bands. Chronic normocytic anemia with an H&H of 9.4 and 28.9. Patient's PT INR were supratherapeutic at 54.5 and 4.7. PTT was elevated 41.1. High sensitive troponin I was elevated at 37.5 . CMP revealed an elevated BUN of 24 otherwise unremarkable. Patient was ESR and CRP were only mildly elevated at 21 and 0.73. CK was normal CT scan of the patient's brain and cervical spine revealed no acute disease. Chest x-ray revealed no acute disease. Twelve EKG revealed revealed atrial fibrillation with a slow ventricular response of 48, Q-waves V1 and V2. These Q-waves are new compared to EKG dated 01/04/2025 at 20:29 hours. I will repeat a three hour troponin but I do not think that his presentation is consistent with myocardial infarction, myocardial injury. 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 Given his elevated PT INR a spinal tap at this time is not possible given the increased risk for epidural hematoma/spinal bleed. I did discuss the patient's presentation over tiger text with the covering hospitalist, Dr. Trevino and the patient will be admitted for further treatment Admission/Observation Consideration of admission/observation: Escalation of care including admission/observation considered (Yes) Consult Healthcare Provider Management of the patient was discussed with: Hospitalist Lab Data [facility] Lab Attestation statement: I reviewed the patient's lab results. 01/10/25 05:44 01/11/25 05:54 Labs: Lab Results 01/10/25 01/10/25 Range/Units 05:44 05:45 WBC 11.9 H (4.8-10.8) X10*3/uL RBC 3.11 L (4.60-5.80) X10*6/uL Hgb 9.4 L (14.0-18.0) g/dl Hct 28.9 L (42.0-52.0) % MCV 92.9 (80.0-98.0) fL MCH 30.2 (27.0-33.0) pg MCHC 32.5 (31.0-36.0) g/dl RDW 24.1 H (11.0-16.0) % Plt Count 179 D (160-400) X10*3/uL MPV 11.3 (9.4-12.4) fL Immature Gran % (Auto) Cancelled Neut % (Auto) Cancelled Lymph % (Auto) Cancelled Hutchinson % (Auto) Cancelled Eos % (Auto) Cancelled Baso % (Auto) Cancelled Lymph # (Auto) Cancelled Hutchinson # (Auto) Cancelled Eos # (Auto) Cancelled Baso # (Auto) Cancelled Abs Immat Gran (auto) Cancelled Absolute Neuts (auto) Cancelled Absolute Nucleated RBC 0.100 H (0.0-0.012) X10*3/uL Nucleated RBC % (auto) 0.8 H (0.0-0.2) /100WBC Neutrophils % (Manual) 55 (45-73) % Band Neutrophils % 6 H (3-5) % Lymphocytes % (Manual) 19 L (20-40) % Atypical Lymphs % (Man) 2 (0-6) % Monocytes % (Manual) 12 H (2-11) % Metamyelocytes % 5 % Myelocytes % 1 % Abs Neuts (Manual) 7.3 (2.0-8.3) X10*3/uL Lymphocytes # (Manual) 2.3 (1.2-4.9) X10*3/uL Atyp Lymphs # (Manual) 0.2 x10*3/uL Monocytes # (Manual) 1.4 H (0.1-1.2) X10*3/uL Metamyelocytes # 0.6 X10*3/uL Myelocytes # 0.1 X10*/uL Toxic Vacuolation PRESENT Platelet Estimate NORMAL (NORMAL) Large Platelets PRESENT Plt Morphology Comment NOTED RBC Morphology NOTED Hypochromasia 2+ (15-30) /OIF Basophilic Stippling 1+ (0-2) /OIF Ovalocytes 1+ (5-14) /OIF Christie Cells 1+ (0-2) /OIF Acanthocytes (Spur) 2+ (3-5) /OIF Schistocytes 2+ (3-5) /OIF ESR 21 H (0-15) MM/HR PT 54.5 H D (10.9-12.4) SEC INR 4.7 H (0.9-1.1) APTT 41.1 H (26.0-36.8) SEC Sodium 141 (135-145) mmol/L Potassium 3.9 (3.3-5.1) mmol/L Chloride 104 (96-108) mmol/L Carbon Dioxide 28 (22-29) mmol/L Anion Gap 13 (12-20) BUN 24 H (9-16) mg/dL Creatinine 0.79 (0.5-1.4) mg/dL Estim Creat Clear Calc 79.8 Estimated GFR > 60 Random Glucose 90 (60-115) mg/dL Calcium 8.7 (8.4-10.2) mg/dL Total Bilirubin 0.8 (0.0-1.0) mg/dL AST 35 (5-37) U/L ALT 26 (0-40) U/L Alkaline Phosphatase 57 (39-117) U/L Total Creatine Kinase 132 (38-174) U/L Troponin I High Sens 37.5 H (<3.5-35.0) ng/L C-Reactive Protein 0.73 H (< or = 0.50) mg/dL Total Protein 6.7 (6.5-8.0) g/dL Albumin 3.6 (3.5-5.0) g/dL Respiratory Panel Madden See Note Adenovirus (Rapid PCR) Not Detected (Not Detect.) B.pert (TEM-PCR) Not Detected (Not Detect.) B.parapertussis DNA PCR Not Detected (Not Detect.) C. pneumoniae DNA (PCR) Not Detected (Not Detect.) Coronavirus OC43 (PCR) Not Detected (Not Detect.) Coronavirus HKU1 (PCR) Not Detected (Not Detect.) Coronavirus 229E (PCR) Not Detected (Not Detect.) Coronavirus NL63 (PCR) Not Detected (Not Detect.) Human Metapneumovir PCR Not Detected (Not Detect.) Influenza A (RT-PCR) Not Detected (Not Detect.) Influenza B (RT-PCR) Not Detected (Not Detect.) M. pneumoniae (PCR) Not Detected (Not Detect.) Parainfluenza 1 (PCR) Not Detected (Not Detect.) Parainfluenza 2 (PCR) Not Detected (Not Detect.) Parainfluenza 3 (PCR) Not Detected (Not Detect.) Parainfluenza 4 (PCR) Not Detected (Not Detect.) RSV (PCR) Not Detected (Not Detect.) Entero/Rhino (PCR) Not Detected (Not Detect.) SARS-CoV-2 RNA (RT-PCR) Not Detected (Not Detect.) Independent Interpretation I performed an independent interpretation of an: EKG Interpretation: Interpretation patient's 12 EKG is as follows: Atrial fibrillation with a slow ventricular response of 48, no ST segment elevation, no ST segment depression, nonspecific T-wave abnormalities, Q-waves in V1 and V2 consistent with anterior wall HI. compared to EKG dated 01/04/2024 at 20:29 hours, the Q-waves are new and the bradycardia is new as well. Radiology Impression Discussion of test interpretation with radiology: I have reviewed the radiologist's reading. Radiologist Impression: CT head without contrast Comparison: CT/REG/NC/SR - CT HEAD/BRAIN WO CON - 06/10/22 18:12 EDT Findings: No evidence of acute territorial infarct. There is patchy low density in the periventricular and subcortical white matter. Diffuse volume loss is noted. No hydrocephalus. No hemorrhage, mass effect, mass lesion or midline shift. No abnormal extra-axial fluid. No calvarial fracture. Paranasal sinuses exhibit opacification of the right maxillary sinus and mucoperiosteal thickening of the ethmoid air cells. Right globe prosthesis noted. Impression: No evidence of acute process. Ischemic microangiopathy and diffuse volume loss. This document has been electronically signed by: Steve Trejo MD on 01/10/2025 06:05:53 Dictated By: Steve Trejo MD CT cervical spine without contrast Comparison: 10/04/2019 Findings: There is straightening of the normal cervical lordosis. No fracture or acute malalignment. Multilevel degenerative changes with disc space narrowing throughout the cervical spine. The facet joints are normally imbricated. No prevertebral soft tissue edema. Lung apicies demonstrate no acute process. The thyroid gland is heterogeneous with multiple nodules. Impression: Multilevel degenerative changes without evidence of acute fracture or acute malalignment. This document has been electronically signed by: Steve Trejo MD on 01/10/2025 06:06:06 Dictated By: Steve Trejo MD 1 view chest x-ray Comparison: CR - XR CHEST 2V - 01/04/25 21:07 EST Findings: Lungs are well inflated. Sternotomy wires are evident. Cardiac silhouette is mildly enlarged. Central interstitial markings are mildly prominent. No dense areas of consolidation. No pleural effusion or pneumothorax. IMPRESSION: Enlargement of the cardiac silhouette with mild interstitial prominence. This can be seen with edema, bronchitis/bronchiolitis, atelectasis, or interstitial lung disease. This document has been electronically signed by: Awais Renteria MD on 01/10/2025 06:36:40 Dictated By: Awais Renteria MD Critical Care Time Critical Care Time Critical Care Time: Yes Total Critical Care Time: 45 Attestation: Critical Care: The patient was critically ill with a high probability of imminent or life threatening deterioration. I spent greater than 30 minutes of discontinuous time evaluating the patient,delivering critical care at the bedside, discussing and evaluating pertinent data with consultants. Critical care time does not include time spent performing separately billable procedures or teaching. Total time spent performing critical care was 45 minutes. Discharge Plan Discharge Clinical Impression: Ascending paralysis, Weakness, Fall, Upper respiratory infection, viral Patient Disposition: Admitted As Inpatient Interventions: Admission Worksheet (ED) Last Done: 01/10/25 16:23
--- OUTSIDE RECORDS SUMMARY | 2025-01-10 05:19 | XMS_ITS | Patient Health Record ---
Author Organization [facility] Address [address] [place] [address] Care Team Providers Care Admissions Clinician Name Role Phone Luis Armando YANG, [place] Primary Care Provider UnavailFady Mcfarland Unavailable [phone] Allergies Allergen (clinical drug ingredient) Drug/Non Drug Allergy documented on EMR Reaction Allergy Type Onset Date Status atorvastatin Lipitor Unknown Drug Allergy Acti ve atenolol Atenolol Unknown Drug Allergy Active sotalol Sotalol Unknown Drug Allergy Active Reason For Referral No Information Medications Medication SIG (Take, Route, Frequency, Duration) Notes Start Date End Date Status Ocuvite Active Spironolactone 25 MG 1 tablet Orally for 30 day(s) Active Rosuvastatin Calcium 40 MG 1 tablet Oral ly Once a day for 30 day(s) Active Triamcinolone Acetonide Active Acebutolol HCl Activ e Warfarin Sodium 4 MG 1 tablet Orally Onc e a day for 30 day(s) Active Amoxicillin 500 MG 1 capsule Orally barrett ry 8 hrs for 5 day(s) Active Celecoxib 200 MG 1 capsule with food Orally Once a day for 30 day(s) Active Doxazosin Mesylate 4 MG as directed Orally Active Finasteride 5 MG 1 tablet Orally Once a day for 30 day(s) Active Furosemide 80 MG 1 tablet Orally Once a day for 30 day(s) Active Lisinopril Active Immunizations Vaccine Route Administration Date Status Comme nts COVID-19 Moderna Vaccine Unknown 01/04/2021 Administered 1st 12/04/2020 2nd 01/04/2021 Social History Tobacco Use: Social History Observation Description Date Details (start date - stop date) Never Smoker NA - NA Tobacco Use/Smoking Question Answer Notes Are you a: nonsmoker Alcohol Screen Question Answer Notes Did you have a drink contain ing alcohol in the past year? Yes How often did you have a dri nk containing alcohol in the past year? 2 to 3 times a week (3 points) Points 3 Interpretation Negative Tobacco use other than smoking: Question Answer Notes Are you an other tobacco user? No Problems Problem Type SNOMED Code ICD Code Onset Dates Problem Status W/U Status Risk Notes Problem Acquired hammer toe of right foot (0737491743846 105) Other hammer toe(s) (acquired), right foot (M20.41) Active confirmed Problem Acquired hammer toe of left foot (5084464858209 103) Other hammer toe(s) (acquired), left foot (M20.42) Active confirmed Plan Of Treatment Pending Test Test Name Order Date X ray : Foot, left 3V 04/24/2022 X ray : Foot, right 3V 04/24/2022 Insurance Providers Payer Name Payer Address Payer Phone Subscriber Number Group Number Insured Name Patient Relationship to Insured Coverage Start Date Coverage End Date Medicare National [employer] [address] [place] [address] [id number] Keegan Fagan Jr Self - patient is the insured [facility] [address] [place] [address] [phone] [id number] Keegan Fagan Jr Self - patient is the insured Medical (General) History Medical History History ICD Code Arthritis Back,Hip,and Knee pain Gall bladder problems Heart disease High blood pressure Scarlet fever Measles Mumps Chicken pox Surgical History Surgery Date(Month/Year) Right eye surgery 195 gall bladder 2003 heart surgery unspecified 2000 [place] History Reason Date[place] [facility] [place]
[2025-01-10 05:52] LABS: Hematocrit 28.9 % (42.0-52.0); Hemoglobin 9.4 g/dl (14.0-18.0); Mean Corpuscular HGB Conc 32.5 g/dl (31.0-36.0); Mean Corpuscular Hemoglobin 30.2 pg (27.0-33.0); Mean Corpuscular Volume 92.9 fL (80.0-98.0); Mean Platelet Volume 11.3 fL (9.4-12.4); NRBC Pct Auto 0.8 /100WBC (0.0-0.2); PLT ABN DIST 1; Platelet Count 179 X10*3/uL (160-400); Red Blood Count 3.11 X10*6/uL (4.60-5.80); Red Cell Distribution Width 24.1 % (11.0-16.0); White Blood Count 11.9 X10*3/uL (4.8-10.8)
[2025-01-10 05:56] LABS: INTERNATIONAL NORM RATIO 4.7 (0.9-1.1); Prothrombin Time 54.5 SEC (10.9-12.4)
[2025-01-10 05:59] LABS: Partial Thromboplastin Time 41.1 SEC (26.0-36.8)
[2025-01-10 06:13] LABS: Troponin-I High Sensitivity 37.5 ng/L (<3.5-35.0)
[2025-01-10 06:17] LABS: Acanthocytes 2+ (3-5) /OIF; Atypical Lymph Absolute Manual 0.2 x10*3/uL; Atypical Lymphs Percent Manual 2 % (0-6); Band Neutrophils Percent 6 % (3-5); Large Platelet PRESENT; Lymphocytes Absolute Manual 2.3 X10*3/uL (1.2-4.9); Lymphocytes Percent Manual 19 % (20-40); Metamyelocytes Absolute 0.6 X10*3/uL; Metamyelocytes Percent 5 %; Monocytes Absolute Manual 1.4 X10*3/uL (0.1-1.2); Monocytes Percent Manual 12 % (2-11); Myelocytes Absolute 0.1 X10*/uL; Myelocytes Percent 1 %; Neutrophils Absolute Manual 7.3 X10*3/uL (2.0-8.3); Neutrophils Percent Manual 55 % (45-73); Ovalocytes 1+ (5-14) /OIF; Platelet Estimate NORMAL (NORMAL); Platelet Morphology Comment NOTED; RBC Morphology NOTED
[2025-01-10 06:18] LABS: Alanine Aminotransferase 26 U/L (0-40); Albumin Level 3.6 g/dL (3.5-5.0); Alkaline Phosphatase 57 U/L (39-117); Anion Gap 13 (12-20); Aspartate Amino Transferase 35 U/L (5-37); Basophilic Stippling 1+ (0-2) /OIF; Bilirubin Total 0.8 mg/dL (0.0-1.0); Blood Urea Nitrogen 24 mg/dL (9-16); Burr Cells 1+ (0-2) /OIF; C Reactive Protein 0.73 mg/dL (< or = 0.50); Calcium 8.7 mg/dL (8.4-10.2); Carbon Dioxide 28 mmol/L (22-29); Chloride 104 mmol/L (96-108); Creatinine Clr Calc Pharmacy 79.8; Estimated Glomerular Filt Rate > 60; Glucose Random 90 mg/dL (60-115); Hypochromasia 2+ (15-30) /OIF; Potassium 3.9 mmol/L (3.3-5.1); Schistocytes 2+ (3-5) /OIF; Sodium 141 mmol/L (135-145); Total Protein 6.7 g/dL (6.5-8.0)
[2025-01-10 06:19] LABS: Toxic Vacuolation PRESENT
[2025-01-10 06:48] LABS: Erythrocyte Sedimentation Rate 21 MM/HR (0-15)
--- NOTE | 2025-01-10 06:59 | PC.NURSE ---
pt sinus roya on tele. 18g IV L wrist
[2025-01-10 09:57] LABS: Adenovirus PCR Not Detected (Not Detect.); Bordetella parapertussis PCR Not Detected (Not Detect.); Bordetella pertussis PCR Not Detected (Not Detect.); Chlamydia pneumoniae PCR Not Detected (Not Detect.); Coronavirus 229E PCR Not Detected (Not Detect.); Coronavirus HKU1 PCR Not Detected (Not Detect.); Coronavirus NL63 PCR Not Detected (Not Detect.); Coronavirus OC43 PCR Not Detected (Not Detect.); Human metapneumovirus PCR Not Detected (Not Detect.); Influenza A PCR Not Detected (Not Detect.); Influenza B PCR Not Detected (Not Detect.); Mycoplasma pneumoniae PCR Not Detected (Not Detect.); Parainfluenza 1 PCR Not Detected (Not Detect.); Parainfluenza 2 PCR Not Detected (Not Detect.); Parainfluenza 3 PCR Not Detected (Not Detect.); Parainfluenza 4 PCR Not Detected (Not Detect.); RSV PCR Not Detected (Not Detect.); Rhino/Enterovirus PCR Not Detected (Not Detect.)
[2025-01-10 10:02] LABS: SARS-CoV-2 PCR Not Detected (Not Detect.)
--- NOTE | 2025-01-10 11:23 | PHA.MEDREC ---
Addendum entered by Jennifer Robb 01/10/25 14:35: Spoke to patient to confirm Lisinopril dose. Patient states he takes Lisinopril 40 mg QAM and 20 mg QPM. Patient was also informed that pharmacy does not have Acebutolol. Patient states his will bring in Original Note: Pharmacy Consult ? Medication Reconciliation Pharmacy has completed the medication reconciliation. Spoke to patient to confirm med list. Patient states he never took Cefuroxime Axetil 500 mg, Doxycycline Hyclate 100 mg and only took 3 days of Prednisone 40 mg daily that was prescribed 01/02/25. Patient stopped taking Rosuvastatin 40 mg. Patient confirmed Warfarin 4 mg daily, however last fill was 06/09/24 for 90 days. Called [facility] pharmacy to confirm last pick up operator date. [facility] states last fill date was indeed May 2024.
--- NOTE | 2025-01-10 11:38 | PM.IMHP ---
History of Present Illness Date of Service: 01/10/25 Chief Complaint: weakness, fall An 89-year-old male with a history of hypertension and a mechanical aortic valve on Coumadin presents to the ED with progressive bilateral upper and lower extremity weakness, initially starting in the legs and ascending. Overnight, he was unable to stand from the toilet, lowered himself to the floor to use surrounding supports but was too weak and fell, sustaining a head strike without loss of consciousness. The patient and his spend December annually in [facility]. He returned in early January and developed a hacking cough, prompting an ED visit where he was diagnosed with bronchitis and prescribed prednisone, cefuroxime, doxycycline, albuterol, and Tessalon Pearls. Per his PCP?s advice, he did not take the antibiotics but completed the prednisone course and used Tessalon Pearls. While recovering, he developed progressive limb weakness, first noted on 01/05/2025, with difficulty rising from a seated position. The weakness, initially in the legs, has progressed to involve the hands and arms. He denies facial weakness, dysarthria, dysphagia, dyspnea, urinary retention, sensory changes, or pain. He describes the symptoms as weakness and heaviness without numbness or tingling. Review of Systems Constitutional: Comments: Denies any changes to weight, no fever chills or fatigue, and no changes to sleep. Eyes: Comments: Denies any changes to vision. ENT: Comments: Denies headache, changes to hearing, vertigo, sore throat or rhinorrhea Cardiovascular: Comments: Denies pain, palpitations, diaphoresis, orthopnea, or edema Endorses hx of mechanical aortic valve, on coumadin Respiratory: Comments: Denies pain, hemoptysis, dyspnea or wheezing Endorses dry cough Gastrointestinal: Comments: Denies pain, N/V/D, changes to appetite or bleeding Genitourinary: Comments: Denies difficulty, urgency, frequency, pain, retention, or bleeding Musculoskeletal: Comments: Denies muscle/joint stiffness, swelling Endorses bilateral upper and lower extremity weakness x 5 days Integumentary/Breasts: Comments: Denies itching, dryness, rashes or lesions Endorses left forearm skin tear Neurologic: Comments: Denies dizziness, numbness or tingling,tremors Endorses bilateral upper and lower extremity weakness x 5 days Psychiatric: Comments: Denies anxiety, depression, or memory changes Endocrine: Comments: Denies temperature intolerances, sweating, excessive thirst, or bleeding Allergic/Immunologic: Comments: Endorses allergies as listed in EMR [facility] Medical History Atrial fibrillation HTN (hypertension) Surgical History History of cholecystectomy Aortic valve replaced Social History Household Members: Spouse Housing: House Do you presently have visiting nurse or other home services: No Alcohol intake: never Patient Tobacco Use Status: Never used Tobacco service: No Current occupational status: retired [employer] Allergies Allergy/AdvReac Type Severity Reaction Status Date / Time adhesive [ADHESIVE] Allergy Intermediate RASH, Verified 01/10/25 04:46 BLISTERS atenolol [Atenolol] Allergy Mild RASH Verified 01/10/25 04:46 sotalol [Sotalol] Allergy Mild RASH Verified 01/10/25 04:46 atorvastatin [From Lipitor] AdvReac Mild SEVERE Verified 01/10/25 04:46 ACHES AND PAINS Home Medications ?Medication ?Instructions ?Recorded ?Confirmed ?Last Taken ?Type acebutolol 200 mg capsule 200 mg PO BEDTIME 04/17/21 01/10/25 01/09/25 History acebutolol 200 mg capsule 400 mg PO DAILY 04/17/21 01/10/25 01/09/25 History doxazosin 4 mg tablet 4 mg PO DAILY 04/17/21 01/10/25 01/09/25 History finasteride 5 mg tablet 5 mg PO BEDTIME 04/17/21 01/10/25 01/09/25 History furosemide 80 mg tablet 80 mg PO DAILY 04/17/21 01/10/25 01/09/25 History lisinopril 20 mg tablet 40 mg PO DAILY 04/17/21 01/10/25 01/09/25 History warfarin 4 mg tablet 4 mg PO DAILY@1800 11/02/21 01/10/25 01/09/25 History furosemide 40 mg tablet 40 mg PO BEDTIME 01/10/25 01/10/25 01/09/25 History lisinopril 20 mg tablet 20 mg PO BEDTIME 01/10/25 01/10/25 01/09/25 History Physical Exam Vital Signs and Narrative: Vital Signs: Last Vital Signs Temp 97.7 F 01/10/25 11:35 Pulse 56 01/10/25 11:35 Resp 14 01/10/25 11:35 BP 117/45 L 01/10/25 11:35 Pulse Ox 96 01/10/25 11:35 O2 Del Method Room Air 01/10/25 11:35 BMI result Body Mass Index 26.2 Const: General: cooperative, comfortable, no acute distress, alert and awake Nutritional Appearance: average body habitus Orientation/consciousness: patient oriented x3 Limitations: physical limitations (bilateral upper and lower extremity weakness ) HEENT: Head: Yes normal to inspection Ears: hearing grossly normal bilaterally Face and sinus: Yes normal facial exam Mouth: Normal oral and palatal mucosa present Eyes: General: appearance normal, both eyes and all related structures Conjunctivae: conjunctivae normal Sclerae: sclerae normal Pupils: Pupils normal by confrontation EOM: EOMs intact bilaterally Neck: Yes normal visual inspection, Yes full ROM, Yes no lymphadenopathy and Yes no meningeal signs Thyroid: Thyroid normal Resp: Effort & Inspection: normal respiratory effort, able to speak in complete sentences and Actively coughing Quality: dry Auscultation: diminished lung sounds diffuse Cardio: Jugular venous distension: no JVD Rate: bradycardic (56) Heart sounds: Other heart sounds present (mechanical valve click) Peripheral pulses: Peripheral pulses 2+ throughout GI: Inspection: Yes normal to inspection Auscultation: normal bowel sounds Back/Spine/Pelvis: Cervical Spine: cervical ROM normal Thoracic/Lumbar Spine: thoraco-lumbar ROM normal Skin: Other: scattered bruising General skin exam: no rashes or lesions noted Wounds: wounds noted (skin tear to left forearm) Neuro: General: patient oriented x3, no meningeal signs, CN's II-XI intact bilaterally and Unable to assess gait Cranial nerves: Yes CN's II-XII intact bilaterally, Yes Facial sensation intact/muscles of mastication intact and Yes Bilaterally intact EOM present Cognition (Neuro): normal cognition Gait exam (Neuro): Unable to assess gait Motor exam (neuro): Abnormal motor strength present bilateral upper and lower extremity weakness Extrem: Right upper extremity: Extremity exam: right hand (low training facilitator strength ) Details: neuromotor exam abnormal Left upper extremity: hand (weakness ) Right lower extremity: lower leg (weakness) Left lower extremity: lower leg (weakness) Psych: Appearance: grossly normal Mental Status: mental status grossly normal Speech and movement: Normal speech and movement present Affect: normal affect Attitude: cooperative Results Labs 01/10/25 05:44 01/11/25 05:54 Labs: Laboratory Results - last 24 hr 01/10/25 01/10/25 05:44 05:45 MCV 92.9 MCH 30.2 MCHC 32.5 RDW 24.1 H Plt Count 179 D MPV 11.3 Immature Gran % (Auto) Cancelled Neut % (Auto) Cancelled Lymph % (Auto) Cancelled Miller % (Auto) Cancelled Eos % (Auto) Cancelled Baso % (Auto) Cancelled Lymph # (Auto) Cancelled Miller # (Auto) Cancelled Eos # (Auto) Cancelled Baso # (Auto) Cancelled Abs Immat Gran (auto) Cancelled Absolute Neuts (auto) Cancelled Absolute Nucleated RBC 0.100 H Nucleated RBC % (auto) 0.8 H Neutrophils % (Manual) 55 Band Neutrophils % 6 H Lymphocytes % (Manual) 19 L Atypical Lymphs % (Man) 2 Monocytes % (Manual) 12 H Metamyelocytes % 5 Myelocytes % 1 Abs Neuts (Manual) 7.3 Lymphocytes # (Manual) 2.3 Atyp Lymphs # (Manual) 0.2 Monocytes # (Manual) 1.4 H Metamyelocytes # 0.6 Myelocytes # 0.1 Toxic Vacuolation PRESENT Platelet Estimate NORMAL Large Platelets PRESENT Plt Morphology Comment NOTED RBC Morphology NOTED Hypochromasia 2+ (15-30) Basophilic Stippling 1+ (0-2) Ovalocytes 1+ (5-14) Christie Cells 1+ (0-2) Acanthocytes (Spur) 2+ (3-5) Schistocytes 2+ (3-5) ESR 21 H PT 54.5 H D INR 4.7 H APTT 41.1 H Anion Gap 13 Estim Creat Clear Calc 79.8 Estimated GFR > 60 Random Glucose 90 Calcium 8.7 Total Bilirubin 0.8 AST 35 ALT 26 Alkaline Phosphatase 57 Total Creatine Kinase 132 Troponin I High Sens 37.5 H C-Reactive Protein 0.73 H Total Protein 6.7 Albumin 3.6 Respiratory Panel Madden See Note Adenovirus (Rapid PCR) Not Detected B.pert (TEM-PCR) Not Detected B.parapertussis DNA PCR Not Detected C. pneumoniae DNA (PCR) Not Detected Coronavirus OC43 (PCR) Not Detected Coronavirus HKU1 (PCR) Not Detected Coronavirus 229E (PCR) Not Detected Coronavirus NL63 (PCR) Not Detected Human Metapneumovir PCR Not Detected Influenza A (RT-PCR) Not Detected Influenza B (RT-PCR) Not Detected M. pneumoniae (PCR) Not Detected Parainfluenza 1 (PCR) Not Detected Parainfluenza 2 (PCR) Not Detected Parainfluenza 3 (PCR) Not Detected Parainfluenza 4 (PCR) Not Detected RSV (PCR) Not Detected Entero/Rhino (PCR) Not Detected SARS-CoV-2 RNA (RT-PCR) Not Detected Assessment and Plan (1) Neuropathy: Status: Acute Plan An 89-year-old male with a history of hypertension, mechanical aortic valve on Coumadin, and BPH presents to the ED with progressive bilateral upper and lower extremity weakness for 5 days. Progressive weakness with fall, possibly DDx Guillain-Calvillo? syndrome, or other forms or neuropathy.. CT head and cervical spine are negative for fracture. CXR shows enlargement of the cardiac silhouette with mild interstitial prominence, which can be seen with edema, bronchitis/bronchiolitis, atelectasis, or interstitial lung disease. EKG shows atrial fibrillation with slow ventricular response, left axis deviation, and cannot rule out septal infarct of undetermined age. Troponin is 37.5. CRP is 0.73. CK is normal. INR is 4.7, PTT is 41, making lumbar puncture currently unsafe. Neurology has been consulted, recommendations pending. Bronchitis with dry cough. Continue benzonatate and albuterol as needed. Hypertension. Continue acebutolol, doxazosin, furosemide, and lisinopril. BPH. Continue finasteride. Mechanical aortic valve. Continue Coumadin with close INR monitoring. Normocytic anemia. No current treatment. Code status: Full. DVT prophylaxis: coumadin, inr is high Full code regular diet. admission for at least 2 midnights for management of acute ascending neuropathy, concern for guillain-baree Quality Stroke Does the patient have a stroke diagnosis?: No VTE Prior VTE?: No VTE Risk Level:: Medical - moderate - high VTE Device Contraindication: Treatment Not Indicated VTE Drug Contraindication: N/A - Med Ordered
[2025-01-10 13:51] LABS: Troponin-I High Sensitivity 41.1 ng/L (<3.5-35.0)
--- NOTE | 2025-01-10 15:42 | PC.NURSE ---
Pt has a small skin tear to lateral L FA; area was dressed this a.m., but area is oozing secondary to pt's INR level (see labs); Bacitracin applied, as well as non-stick pad and 2 ABD pads, wrapped with Kerlix to make a pressure bandage; pt tolerated well
--- NOTE | 2025-01-10 16:00 | PM.NEUROCN ---
History of Present Illness Data of Consult Service Date: 01/10/25 Primary Care Provider: Milton Durán MD [facility] Reason for consult: Weakness 89-year-old male with a history of hypertension and a mechanical aortic valve on Coumadin presents to the ED with progressive bilateral upper and lower extremity weakness. He was in or [place] few weeks ago in about 2-3 weeks ago he developed a viral syndrome with cough and productive cough. He came back and was not feeling well on his way back. The other day he noted weakness in his legs when he could not get up from a sitting position. Last night he said on a commode and could not get up. He was feeling weak in both legs. There was no breathing swallowing or speech difficulty or change in his vision. Review of Systems Review of Systems: Recent cold and flu-like illness PMFSH Past Medical History Medical History Atrial fibrillation HTN (hypertension) Surgical History Surgical History History of cholecystectomy Aortic valve replaced Social History Social History Household Members: Spouse Housing: House Do you presently have visiting nurse or other home services: No Alcohol intake: never Patient Tobacco Use Status: Never used Tobacco Smoked in Last 30 Days: No Use of substances other than those prescribed or required for medical reasons: No Advance Directives: No Advance Directives Information Provided: Yes service: No Current occupational status: retired Meds Allergies Allergy/AdvReac Type Severity Reaction Status Date / Time adhesive [ADHESIVE] Allergy Intermediate RASH, Verified 01/10/25 04:46 BLISTERS atenolol [Atenolol] Allergy Mild RASH Verified 01/10/25 04:46 sotalol [Sotalol] Allergy Mild RASH Verified 01/10/25 04:46 atorvastatin [From Lipitor] AdvReac Mild SEVERE Verified 01/10/25 04:46 ACHES AND PAINS Active Medications: Current Medications Acetaminophen (Acetaminophen 325 Mg Tablet) 650 mg PO Q6H PRN PRN Reason: Pain, Mild 1-3,fever,headache Al Hydroxide/Mg Hydroxide (Magnesium Hydrox/Alum Hydrox 30 Ml Oral.Susp) 30 ml PO Q4H PRN PRN Reason: Heartburn Albuterol Sulfate (Albuterol Sulfate 90 Mcg 8 Gm Inhaler) 2 puff INHALE Q6H PRN PRN Reason: shortness of breath or wheezing Benzonatate (Benzonatate 100 Mg Capsule) 200 mg PO TID PRN PRN Reason: cough Calcium Carbonate (Calcium Carbonate 750 Mg Tab.Chew) 750 mg PO Q4H PRN PRN Reason: Heartburn Doxazosin Mesylate (Doxazosin Mesylate 2 Mg Tablet) 4 mg PO DAILY [facility]; Protocol Finasteride (Finasteride 5 Mg Tablet) 5 mg PO BEDTIME [facility] Furosemide (Furosemide 40 Mg Tablet) 40 mg PO BEDTIME [facility]; Protocol Furosemide (Furosemide 40 Mg Tablet) 80 mg PO DAILY [facility]; Protocol Lisinopril (Lisinopril 20 Mg Tablet) 40 mg PO DAILY [facility]; Protocol Lisinopril (Lisinopril 20 Mg Tablet) 20 mg PO BEDTIME [facility] Magnesium Hydroxide (Milk Of Magnesia 30 Ml Oral.Susp) 30 ml PO DAILY PRN PRN Reason: Constipation Melatonin (Melatonin 3 Mg Tablet) 6 mg PO BEDTIME PRN PRN Reason: Insomnia Non-Formulary Medication (Acebutolol) 200 mg PO BEDTIME [facility] Non-Formulary Medication (Acebutolol) 400 mg PO DAILY [facility] Ondansetron HCl (Ondansetron Hcl 4 Mg/2 Ml Vial) 4 mg IVPUSH Q8H PRN PRN Reason: Nausea and Vomiting Polyethylene Glycol (Polyethylene Glycol 3350 17 Gm Powd.Pack) 17 gm PO DAILY PRN PRN Reason: Constipation Sodium Chloride (0.9 % Sodium Chloride Flush 3 Ml Syringe) 3 ml IVFLUSH QSHIFT [facility] Warfarin Sodium (Warfarin Sodium 4 Mg Tablet) 4 mg PO DAILY@1800 [facility] Home Medications ?Medication ?Instructions ?Recorded ?Confirmed ?Last Taken ?Type acebutolol 200 mg capsule 200 mg PO BEDTIME 04/17/21 01/10/25 01/09/25 History acebutolol 200 mg capsule 400 mg PO DAILY 04/17/21 01/10/25 01/09/25 History doxazosin 4 mg tablet 4 mg PO DAILY 04/17/21 01/10/25 01/09/25 History finasteride 5 mg tablet 5 mg PO BEDTIME 04/17/21 01/10/25 01/09/25 History furosemide 80 mg tablet 80 mg PO DAILY 04/17/21 01/10/2501/09/25 History lisinopril 20 mg tablet 40 mg PO DAILY 04/17/21 01/10/25 01/09/25 History warfarin 4 mg tablet 4 mg PO DAILY@1800 11/02/21 01/10/25 01/09/25 History furosemide 40 mg tablet 40 mg PO BEDTIME 01/10/25 01/10/25 01/09/25 History lisinopril 20 mg tablet 20 mg PO BEDTIME 01/10/25 01/10/25 01/09/25 History Physical Exam Vital Signs: Vital Signs: Last Vital Signs Temp 98.1 F 01/10/25 15:36 Pulse 85 01/10/25 15:36 Resp 14 01/10/25 15:36 BP 145/84 H 01/10/25 15:36 Pulse Ox 96 01/10/25 15:36 O2 Del Method Room Air 01/10/25 15:36 BMI result Body Mass Index 26.2 Neuro: Other: He is alert and awake with normal spontaneity of speech fluency comprehension and affect. Face is symmetrical. 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 Left eye movements are intact with normal visual bello. Arm strength is 3-4 or 5. He is able to lift his right leg against gravity but was having difficulty with left leg. He said that he always had some trouble with left. Deep tendon reflexes were absent with flexor plantars. Speech was normal. 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 Unfortunately, he was on anticoagulation for artificial heart valve and stopping that would be too risky. I recommend treating him with IVIG 400 milligram/kg per day for 5 days. He can be admitted on tele floor. Procedures Date of Service Date of Service: 01/10/25
[2025-01-10] MEDS: Bacitracin Oint 0.9 GM PACKET 1 APPL TOPICAL (19:23)
[2025-01-10] MEDS: Acetaminophen 325 MG TABLET 650 MG PO (19:27)
--- NOTE | 2025-01-10 19:27 | PC.NURSE ---
Called pharmacy, spoke with Tejas regarding Immune Globulin 10% Gammagard to be brought to ED & administered upon arrival.
[2025-01-10] MEDS: 0.9 % Sodium Chloride Flush 3 ML SYRINGE IVFLUSH (19:28)
[2025-01-10] MEDS: Immune Globulin 10% Gammagard 20 GM/200 ML VIAL IV (19:44)
--- NOTE | 2025-01-10 19:45 | PC.NURSE ---
Immune Globulin 10% Gammagard liquid bottle would not scan. Attempted to scan bottle, box, etc, and despite confirming med, dose, etc, the medication wouldn't scan. I selected unable to scan medication in [facility]. Pharmacy department aware. Scanner itself is in working order and I was able to scan the patient's bracelet per protocol. Lot #: [id number] Refrigeration Exp Date: 08-24-2027 Room Temperature Exp Date: 08-24-2026
[2025-01-10] MEDS: lisinopriL 20 MG TABLET PO (21:20)
[2025-01-10] MEDS: Finasteride 5 MG TABLET PO (21:21)
[2025-01-10] MEDS: Furosemide 40 MG TABLET PO (21:21)
--- NOTE | 2025-01-10 21:55 | PC.NURSE ---
Spoke with Dr. De La Cruz & Pharmacy ([facility]) to clarify IVIG orders. Orders are to give a TOTAL of 45gm IVIG per day. First dose of 20gm infusing at this time at 55 ml/hour. Plan to administer next 20gm bottle, followed by remaining 5gm bottle as ordered, then repeat tomorrow evening around 18:00.
[2025-01-11] VITALS (10 sets, daily range): BP systolic 120–159; BP diastolic 62–78; PULSE 59–71; RESP 16–20; TEMP 36.5–37.3; O2SAT 93–97
[2025-01-11] MEDS: 0.9 % Sodium Chloride Flush 3 ML SYRINGE IVFLUSH ×4 (00:29→21:11)
[2025-01-11] MEDS: Immune Globulin 10% Gammagard 20 GM/200 ML VIAL IV ×3 (00:29→23:44)
--- NOTE | 2025-01-11 00:54 | PC.NURSE ---
Second vial of IVIG 20gm initiated at 00:25am on 01/11/2025. Infusing at 55 mL/hour as ordered. After this vial is completely infused, given IVIG 5gm as ordered. Patient reports feeling better
[2025-01-11 00:59] LABS: Appearance Urine Clear; Color Urine Yellow; Glucose Urine UA Negative (Negative); Leukocyte Esterase Urine Negative (Negative); Nitrite Urine Negative (Negative); PH 5.5 (5.0-9.0); UMIC TRIGGER UACC YES; Urine Blood Negative (Negative); Urine Ketones Negative (Negative); Urine Protein 30 (1+) mg/dL (Neg-Trace)
[2025-01-11 01:04] LABS: Bacteria Urine None Seen (None Seen); Hyaline Casts Urine 0-2 /LPF (0-2); RBC Urine 0-2 /HPF (0-2); Squamous Epithelial Cell Urine 0-2 /HPF (0-2); WBC Urine 0-5 /HPF (0-5)
[2025-01-11] MEDS: Immune Globulin 10% Gammagard 5 GM/50 ML VIAL IV (04:00)
[2025-01-11 06:19] LABS: Alanine Aminotransferase 23 U/L (0-40); Albumin Level 3.3 g/dL (3.5-5.0); Alkaline Phosphatase 57 U/L (39-117); Anion Gap 11 (12-20); Aspartate Amino Transferase 34 U/L (5-37); Bilirubin Total 0.9 mg/dL (0.0-1.0); Blood Urea Nitrogen 23 mg/dL (9-16); Calcium 8.4 mg/dL (8.4-10.2); Carbon Dioxide 31 mmol/L (22-29); Chloride 101 mmol/L (96-108); Creatinine Clr Calc Pharmacy 95.5; Estimated Glomerular Filt Rate > 60; Glucose Random 90 mg/dL (60-115); Sodium 139 mmol/L (135-145); Total Protein 6.8 g/dL (6.5-8.0)
[2025-01-11 06:25] LABS: INTERNATIONAL NORM RATIO 3.7 (0.9-1.1); Prothrombin Time 43.8 SEC (10.9-12.4)
--- NOTE | 2025-01-11 08:10 | HO.PM.IMPN ---
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, [id number] for GBS , reports improvement after 1st dose of IVIG Constitutional Alert and oriented Cardiovascular Cardiovascular: Reports leg edema (left ankle, baseline ) Respiratory Denies dyspnea, pain Endorses dry cough, improving Gastrointestinal Denies N/V, pain Musculoskeletal Denies muscle/joint stiffness, swelling Endorses improving bilateral upper and lower extremity weakness Neurologic Denies dizziness, numbness or tingling,tremors Endorses improving bilateral upper and lower extremity weakness Physical Exam Vital Signs: Vital Signs: Last Vital Signs Temp 97.9 F 01/11/25 02:37 Pulse 59 01/11/25 02:37 Resp 20 01/11/25 02:37 BP 146/64 H 01/11/25 02:37 Pulse Ox 95 01/11/25 02:37 O2 Del Method Room Air 01/11/25 02:37 BMI result Body Mass Index 30.3 Const: General: cooperative, comfortable, alert and awake Nutritional Appearance: obese Orientation/consciousness: patient oriented x3 Limitations: physical limitations (bilateral upper and lower extremity weakness, improving ) Resp: Effort & Inspection: normal respiratory effort and able to speak in complete sentences Auscultation: diminished lung sounds diffuse Cardio: Rate: regular rate Rhythm: regular rhythm Heart sounds: Other heart sounds present (mechanical valve click) GI: Inspection: Yes normal to inspection Auscultation: normal bowel sounds Neuro: General: patient oriented x3 Cranial nerves: Yes CN's II-XII intact bilaterally and Yes Bilaterally intact EOM present Cognition (Neuro): normal cognition Motor exam (neuro): Abnormal motor strength present (bilateral upper and lower extremity weakness) Objective Data Active Medications Acetaminophen (Acetaminophen 325 Mg Tablet) 650 mg PO Q6H PRN PRN Reason: Pain, Mild 1-3,fever,headache Acetaminophen (Acetaminophen 325 Mg Tablet) 650 mg PO DAILY@1730 [facility] Stop: 01/14/25 17:31 Last Admin: 01/10/25 19:27 Dose: 650 mg Documented By: AARON Al Hydroxide/Mg Hydroxide (Magnesium Hydrox/Alum Hydrox 30 Ml Oral.Susp) 30 ml PO Q4H PRN PRN Reason: Heartburn Albuterol Sulfate (Albuterol Sulfate 90 Mcg 8 Gm Inhaler) 2 puff INHALE Q6H PRN PRN Reason: shortness of breath or wheezing Benzonatate (Benzonatate 100 Mg Capsule) 200 mg PO TID PRN PRN Reason: cough Calcium Carbonate (Calcium Carbonate 750 Mg Tab.Chew) 750 mg PO Q4H PRN PRN Reason: Heartburn Doxazosin Mesylate (Doxazosin Mesylate 2 Mg Tablet) 4 mg PO DAILY [facility]; Protocol Finasteride (Finasteride 5 Mg Tablet) 5 mg PO BEDTIME [facility] Last Admin: 01/10/25 21:21 Dose: 5 mg Documented By: PAUL Furosemide (Furosemide 40 Mg Tablet) 40 mg PO BEDTIME [facility]; Protocol Last Admin: 01/10/25 21:21 Dose: 40 mg Documented By: PAUL Furosemide (Furosemide 40 Mg Tablet) 80 mg PO DAILY [facility]; Protocol Immune Globulin (Gammagard 10%) 20 gm in 200 mls @ 55 mls/hr IV DAILY@1800 [facility] Stop: 01/14/25 21:39 Last Infusion: 01/11/25 00:25 Dose: Infused Documented By: PAUL Immune Globulin (Gammagard 10%) 20 gm in 200 mls @ 55 mls/hr IV DAILY@2140 [facility] Stop: 01/15/25 01:19 Last Infusion: 01/11/25 03:59 Dose: Infused Documented By: AMOR Immune Globulin (Gammagard 10%) 5 gm in 50 mls @ 55 mls/hr IV DAILY@0120 [facility] Stop: 01/15/25 02:15 Last Infusion: 01/11/25 05:04 Dose: Infused Documented By: AMOR Lisinopril (Lisinopril 20 Mg Tablet) 40 mg PO DAILY [facility]; Protocol Lisinopril (Lisinopril 20 Mg Tablet) 20 mg PO BEDTIME [facility] Last Admin: 01/10/25 21:20 Dose: 20 mg Documented By: PAUL Lisinopril (Lisinopril 20 Mg Tablet) 20 mg PO BEDTIME [facility]; Protocol Magnesium Hydroxide (Milk Of Magnesia 30 Ml Oral.Susp) 30 ml PO DAILY PRN PRN Reason: Constipation Melatonin (Melatonin 3 Mg Tablet) 6 mg PO BEDTIME PRN PRN Reason: Insomnia Non-Formulary Medication (Acebutolol) 200 mg PO BEDTIME [facility] Non-Formulary Medication (Acebutolol) 400 mg PO DAILY [facility] Ondansetron HCl (Ondansetron Hcl 4 Mg/2 Ml Vial) 4 mg IVPUSH Q8H PRN PRN Reason: Nausea and Vomiting Polyethylene Glycol (Polyethylene Glycol 3350 17 Gm Powd.Pack) 17 gm PO DAILY PRN PRN Reason: Constipation Sodium Chloride (0.9 % Sodium Chloride Flush 3 Ml Syringe) 3 ml IVFLUSH QSHIFT [facility] Last Admin: 01/11/25 00:29 Dose: 3 ml Documented By: PAUL Warfarin Sodium (Warfarin Sodium 4 Mg Tablet) 4 mg PO DAILY@1800 [facility] Last Admin: 01/10/25 19:25 Dose: Not Given Documented By: AARON Non-Admin Reason: Patient Condition Contraindication Labs 01/10/25 05:44 01/11/25 05:54 Labs: Laboratory Results - last 24 hr 01/10/25 01/10/25 01/11/25 05:45 13:22 00:50 Hold Purple Top PT INR Anion Gap Estim Creat Clear Calc Estimated GFR Random Glucose Calcium Total Bilirubin AST ALT Alkaline Phosphatase Troponin I High Sens 41.1 H Total Protein Albumin Urine Color Yellow Urine Appearance Clear Urine pH 5.5 Ur Specific [place] 1.020 Urine Protein 30 (1+) H Urine Glucose (UA) Negative Urine Ketones Negative Urine Blood Negative Urine Nitrite Negative Ur Leukocyte Esterase Negative Urine RBC 0-2 Urine WBC 0-5 Ur Squamous Epith Cells 0-2 Urine Bacteria None Seen Hyaline Casts 0-2 Respiratory Panel [place] See Note Adenovirus (Rapid PCR) Not Detected B.pert (TEM-PCR) Not Detected B.parapertussis DNA PCR Not Detected C. pneumoniae DNA (PCR) Not Detected Coronavirus OC43 (PCR) Not Detected Coronavirus HKU1 (PCR) Not Detected Coronavirus 229E (PCR) Not Detected Coronavirus NL63 (PCR) Not Detected Human Metapneumovir PCR Not Detected Influenza A (RT-PCR) Not Detected Influenza B (RT-PCR) Not Detected M. pneumoniae (PCR) Not Detected Parainfluenza 1 (PCR) Not Detected Parainfluenza 2 (PCR) Not Detected Parainfluenza 3 (PCR) Not Detected Parainfluenza 4 (PCR) Not Detected RSV (PCR) Not Detected Entero/Rhino (PCR) Not Detected SARS-CoV-2 RNA (RT-PCR) Not Detected 01/11/25 05:54 Hold Purple Top SEE NOTE PT 43.8 H INR 3.7 H Anion Gap 11 L Estim Creat Clear Calc 95.5 Estimated GFR > 60 Random Glucose 90 Calcium 8.4 Total Bilirubin 0.9 AST 34 ALT 23 Alkaline Phosphatase 57 Troponin I High Sens Total Protein 6.8 Albumin 3.3 L Urine Color Urine Appearance Urine pH Ur Specific [place] Urine Protein Urine Glucose (UA) Urine Ketones Urine Blood Urine Nitrite Ur Leukocyte Esterase Urine RBC Urine WBC Ur Squamous Epith Cells Urine Bacteria Hyaline Casts Respiratory Panel [place] Adenovirus (Rapid PCR) B.pert (TEM-PCR) B.parapertussis DNA PCR C. pneumoniae DNA (PCR) Coronavirus OC43 (PCR) Coronavirus HKU1 (PCR) Coronavirus 229E (PCR) Coronavirus NL63 (PCR) Human Metapneumovir PCR Influenza A (RT-PCR) Influenza B (RT-PCR) M. 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 Progressive weakness with fall, DDx Guillain-Calvillo? syndrome, or other forms or neuropathy. CT head and cervical spine are negative for fracture. CXR shows enlargement of the cardiac silhouette with mild interstitial prominence, which can be seen with edema, bronchitis/bronchiolitis, atelectasis, or interstitial lung disease. EKG shows atrial fibrillation with slow ventricular response, left axis deviation, and cannot rule out septal infarct of undetermined age. Troponin is 37.5, repeat 41.1. CRP is 0.73. CK is normal. INR is 3.7, lumbar puncture not planned due to high INR and need for anticoagulation for mechanical valve. Neurology recommended IVIG infusions x 5 days, he is reporting improvment after first dose Bronchitis with dry cough. Continue benzonatate and albuterol as needed. Hypertension. Continue acebutolol, doxazosin, furosemide, and lisinopril. BPH. Continue finasteride. Mechanical aortic valve. Continue Coumadin with close INR monitoring. Normocytic anemia. No current treatment. Code status: Full. DVT prophylaxis: coumadin, Full code regular diet. Pt eval today Quality Stroke Does the patient have a stroke diagnosis?: No VTE Prior VTE?: No VTE Risk Level:: Medical - moderate - high VTE Device Contraindication: Treatment Not Indicated VTE Drug Contraindication: N/A - Med Ordered
[2025-01-11] MEDS: lisinopriL 20 MG TABLET 40 MG PO (09:00)
[2025-01-11] MEDS: Furosemide 40 MG TABLET 80 MG PO (09:01)
[2025-01-11] MEDS: Doxazosin Mesylate 2 MG TABLET 4 MG PO (09:01)
--- NOTE | 2025-01-11 15:59 | MHC.CM.PN ---
IMM delivered. Patient lives in a home w/ his . Functionally independent. Denies use of DME or services. PCP Milton Durán MD Reports he has an HCP naming his , Mary, as HCA. Copy requested. DP: PT rec [facility]. Patient is agreeable, but hoping to improve enough to go home w/ services. [facility] is first choice for [facility] and [facility] first choice for home services. Transport to be determined by dispo. CM will continue to follow.
[2025-01-11] MEDS: Acetaminophen 325 MG TABLET 650 MG PO (17:18)
[2025-01-11] MEDS: Warfarin Sodium 4 MG TABLET PO (17:18)
[2025-01-11] MEDS: Furosemide 40 MG TABLET PO (21:10)
[2025-01-11] MEDS: Finasteride 5 MG TABLET PO (21:10)
[2025-01-11] MEDS: lisinopriL 20 MG TABLET PO (21:10)
[2025-01-12] VITALS (8 sets, daily range): BP systolic 103–139; BP diastolic 53–65; PULSE 52–72; RESP 16–18; TEMP 36.2–36.6; O2SAT 92–97
--- NOTE | 2025-01-12 01:59 | PC.NURSE ---
Pt's osat dropped into the 70's on RA then back up into the 90's on RA.Pt denies sleep apnea denies SOB.02 3L n/c applied 98%.
[2025-01-12] MEDS: Immune Globulin 10% Gammagard 5 GM/50 ML VIAL IV (03:42)
[2025-01-12 06:32] LABS: INTERNATIONAL NORM RATIO 2.8 (0.9-1.1); Prothrombin Time 33.2 SEC (10.9-12.4)
[2025-01-12] MEDS: Furosemide 40 MG TABLET 80 MG PO (08:29)
[2025-01-12] MEDS: Doxazosin Mesylate 2 MG TABLET 4 MG PO (08:30)
[2025-01-12] MEDS: lisinopriL 20 MG TABLET 40 MG PO (08:30)
[2025-01-12] MEDS: 0.9 % Sodium Chloride Flush 3 ML SYRINGE IVFLUSH ×2 (08:32→17:37)
--- NOTE | 2025-01-12 09:58 | HO.PM.IMPN ---
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, concern for GBS , reports signficant progess fine motor function is the hand fingers is better, able to stand today Physical Exam Vital Signs: Vital Signs: Last Vital Signs Temp 97.9 F 01/12/25 08:00 Pulse 65 01/12/25 08:00 Resp 16 01/12/25 08:00 BP 103/53 L 01/12/25 08:00 Pulse Ox 96 01/12/25 08:00 O2 Del Method Room Air 01/12/25 08:00 BMI result Body Mass Index 30.3 Const: General: cooperative, comfortable, alert and awake Nutritional Appearance: obese Orientation/consciousness: patient oriented x3 Limitations: physical limitations (bilateral upper and lower extremity weakness, improving ) Resp: Effort & Inspection: normal respiratory effort and able to speak in complete sentences Auscultation: diminished lung sounds diffuse Cardio: Rate: regular rate Rhythm: regular rhythm Heart sounds: Other heart sounds present (mechanical valve click) GI: Inspection: Yes normal to inspection Auscultation: normal bowel sounds Neuro: General: patient oriented x3 Cranial nerves: Yes CN's II-XII intact bilaterally and Yes Bilaterally intact EOM present Cognition (Neuro): normal cognition Motor exam (neuro): Abnormal motor strength present (bilateral upper and lower extremity weakness--better today) Objective Data Active Medications Acetaminophen (Acetaminophen 325 Mg Tablet) 650 mg PO Q6H PRN PRN Reason: Pain, Mild 1-3,fever,headache Acetaminophen (Acetaminophen 325 Mg Tablet) 650 mg PO DAILY@1730 [facility] Stop: 01/14/25 17:31 Last Admin: 01/11/25 17:18 Dose: 650 mg Documented By: BLAISE Al Hydroxide/Mg Hydroxide (Magnesium Hydrox/Alum Hydrox 30 Ml Oral.Susp) 30 ml PO Q4H PRN PRN Reason: Heartburn Albuterol Sulfate (Albuterol Sulfate 90 Mcg 8 Gm Inhaler) 2 puff INHALE Q6H PRN PRN Reason: shortness of breath or wheezing Benzonatate (Benzonatate 100 Mg Capsule) 200 mg PO TID PRN PRN Reason: cough Calcium Carbonate (Calcium Carbonate 750 Mg Tab.Chew) 750 mg PO Q4H PRN PRN Reason: Heartburn Doxazosin Mesylate (Doxazosin Mesylate 2 Mg Tablet) 4 mg PO DAILY [facility]; Protocol Last Admin: 01/12/25 08:30 Dose: 4 mg Documented By: BLAISE Finasteride (Finasteride 5 Mg Tablet) 5 mg PO BEDTIME [facility] Last Admin: 01/11/25 21:10 Dose: 5 mg Documented By: SONG Furosemide (Furosemide 40 Mg Tablet) 40 mg PO BEDTIME [facility]; Protocol Last Admin: 01/11/25 21:10 Dose: 40 mg Documented By: SONG Furosemide (Furosemide 40 Mg Tablet) 80 mg PO DAILY [facility]; Protocol Last Admin: 01/12/25 08:29 Dose: 80 mg Documented By: BLAISE Immune Globulin (Gammagard 10%) 20 gm in 200 mls @ 55 mls/hr IV DAILY@1800 [facility] Stop: 01/14/25 21:39 Last Infusion: 01/11/25 23:48 Dose: Infused Documented By: SONG Immune Globulin (Gammagard 10%) 20 gm in 200 mls @ 55 mls/hr IV DAILY@2140 [facility] Stop: 01/15/25 01:19 Last Infusion: 01/12/25 03:46 Dose: Infused Documented By: SONG Immune Globulin (Gammagard 10%) 5 gm in 50 mls @ 55 mls/hr IV DAILY@0120 [facility] Stop: 01/15/25 02:15 Last Infusion: 01/12/25 04:46 Dose: Infused Documented By: SONG Lisinopril (Lisinopril 20 Mg Tablet) 40 mg PO DAILY [facility]; Protocol Last Admin: 01/12/25 08:30 Dose: 40 mg Documented By: BLAISE Lisinopril (Lisinopril 20 Mg Tablet) 20 mg PO BEDTIME [facility] Last Admin: 01/11/25 21:10 Dose: 20 mg Documented By: SONG Lisinopril (Lisinopril 20 Mg Tablet) 20 mg PO BEDTIME [facility]; Protocol Last Admin: 01/11/25 21:15 Dose: Not Given Documented By: SONG Non-Admin Reason: Duplicate Order Magnesium Hydroxide (Milk Of Magnesia 30 Ml Oral.Susp) 30 ml PO DAILY PRN PRN Reason: Constipation Melatonin (Melatonin 3 Mg Tablet) 6 mg PO BEDTIME PRN PRN Reason: Insomnia Non-Formulary Medication (Acebutolol) 200 mg PO BEDTIME [facility] Non-Formulary Medication (Acebutolol) 400 mg PO DAILY [facility] Ondansetron HCl (Ondansetron Hcl 4 Mg/2 Ml Vial) 4 mg IVPUSH Q8H PRN PRN Reason: Nausea and Vomiting Polyethylene Glycol (Polyethylene Glycol 3350 17 Gm Powd.Pack) 17 gm PO DAILY PRN PRN Reason: Constipation Sodium Chloride (0.9 % Sodium Chloride Flush 3 Ml Syringe) 3 ml IVFLUSH QSHIFT [facility] Last Admin: 01/12/25 08:32 Dose: 3 ml Documented By: BLAISE Warfarin Sodium (Warfarin Sodium 4 Mg Tablet) 4 mg PO DAILY@1800 [facility] Last Admin: 01/11/25 17:18 Dose: 4 mg Documented By: BLAISE Labs 01/10/25 05:44 01/11/25 05:54 Labs: Laboratory Results - last 24 hr 01/12/25 05:29 Hold Purple Top SEE NOTE PT 33.2 H D INR 2.8 H Assessment and Plan (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 Progressive weakness with fall, DDx Guillain-Calvillo? syndrome, or other forms or neuropathy. CT head and cervical spine are negative for fracture. CXR shows enlargement of the cardiac silhouette with mild interstitial prominence, which can be seen with edema, bronchitis/bronchiolitis, atelectasis, or interstitial lung disease. EKG shows atrial fibrillation with slow ventricular response, left axis deviation, and cannot rule out septal infarct of undetermined age. Troponin is 37.5, repeat 41.1. CRP is 0.73. CK is normal. INR is 3.7, lumbar puncture not planned due to high INR and need for anticoagulation for mechanical valve. Neurology recommended IVIG infusions x 5 days, he is reporting signficant improvment after few doses Bronchitis with dry cough. Continue benzonatate and albuterol as needed. Hypertension. Continue acebutolol, doxazosin, furosemide, and lisinopril. BPH. Continue finasteride. Mechanical aortic valve. Continue Coumadin with close INR monitoring. Normocytic anemia. No current treatment. Code status: Full. DVT prophylaxis: coumadin, Full code regular diet. Pt eval Quality Stroke Does the patient have a stroke diagnosis?: No VTE Prior VTE?: No VTE Risk Level:: Medical - moderate - high VTE Device Contraindication: Treatment Not Indicated VTE Drug Contraindication: N/A - Med Ordered
--- NOTE | 2025-01-12 10:37 | MHC.CM.PN ---
Per MD rounds patient not medically cleared for dc. IVIG day 2/5. Brad Moore and YESSENIA following. [facility] reviewing. Per RN, improving mobility. CM will continue to follow.
[2025-01-12] MEDS: Bacitracin Oint 0.9 GM PACKET 1 APPL TOPICAL (14:55)
--- NOTE | 2025-01-12 15:52 | HO.WOUND ---
Wound Consult: Initial 89yr old?male admitted to [facility] on 01/10/25 13:13 - See progress notes and H&P for detailed history.? Wound consult placed for Left forearm skin tear.? Patient agreeable to assessment and photo documentation.? Patient reports he often gets skin tears given his thin fragile skin, patient reports he is on chronic Coumadin and typically has a therapeutic INR of 2.3-3.5. Current INR 2.8. The skin tear was noted for continuous bleeding and with dressing sticking to wound bed. Discussed with patient importance of changing dressing daily to limit dressing sticking to wound bed he reports understanding. The skin flap was rolled and attempted to reapproximate however at this time this proved too painful to continue. The bleeding was treated with Surgicel gauze application for 1 hr then removed and treated per standard practice of Xeroform and gauze wrap followed by Elasti-netting to hold in place. All questions asked and answered prior to completing consult. Left Forearm Skin Tear Measurements: 1cm x 1cm x 0.2cm Wound Bed: red clean wound bed Drainage / Odor: sanguineous drainage - continuous oozing noted Edges: ? flap partially re-approximated [place] wound: ? bruising mild swelling noted - No Induration, Fluctuance or Warmth noted Pain: reported Goals of Treatment: ? moist wound healing with xeroform daily Recommendations: 1.Left Forearm - Cleanse with normal saline, pat dry. ?Apply skin prep to periwound. Apply Xeroform secure with Abd pads, gauze wrap and tape. Change Daily. ?Do not apply tape to patient?s skin.? Avoid Adhesive application to skin - when necessary, apply skin prep prior.? Re-consult wound care Nurse for wound deterioration or wound changes.
[2025-01-12] MEDS: Acetaminophen 325 MG TABLET 650 MG PO (17:35)
[2025-01-12] MEDS: Warfarin Sodium 4 MG TABLET PO (17:35)
[2025-01-12] MEDS: Immune Globulin 10% Gammagard 20 GM/200 ML VIAL IV ×2 (18:20→22:04)
[2025-01-12] MEDS: Finasteride 5 MG TABLET PO (20:29)
[2025-01-12] MEDS: lisinopriL 20 MG TABLET PO (20:32)
[2025-01-12] MEDS: Furosemide 40 MG TABLET PO (20:32)
--- NOTE | 2025-01-12 22:39 | PC.NURSE ---
When hanging 2140 IVIG dose 3 of 5 the [facility] was reading a future dose on 01/13 @ 1800. Called pharmacy and Pharmacist Juan F Moser said to put in an unscheduled dose in order to keep the proper order of IVIG dosing in the MAR
[2025-01-13] VITALS (8 sets, daily range): BP systolic 104–147; BP diastolic 50–63; PULSE 54–78; RESP 16–18; TEMP 36.3–36.8; O2SAT 93–98
[2025-01-13] MEDS: Immune Globulin 10% Gammagard 5 GM/50 ML VIAL IV (01:48)
[2025-01-13 07:06] LABS: Hematocrit 24.2 % (42.0-52.0); Mean Corpuscular HGB Conc 33.1 g/dl (31.0-36.0); Mean Corpuscular Hemoglobin 30.1 pg (27.0-33.0); NRBC Pct Auto 0.3 /100WBC (0.0-0.2); Platelet Count 177 X10*3/uL (160-400); Red Blood Count 2.66 X10*6/uL (4.60-5.80); Red Cell Distribution Width 24.7 % (11.0-16.0); White Blood Count 10.6 X10*3/uL (4.8-10.8)
--- NOTE | 2025-01-13 07:16 | P.CDIM_ITS ---
PROVIDER RESPONSE TEXT: To clarify, the appropriate diagnosis supported by the clinical indicators: Bronchitis: acute QUERY TEXT: PHYSICIAN'S DOCUMENTATION REQUEST Date of Query: 01/12/2025 11:26 AM EST Patient Name: Keegan Fagan Admit Date: 01/10/2025 Dear Lonnie Last MD, A review of the medical record indicates additional documentation may be needed. Please review below and update the documentation accordingly. Clinical Indicators: Progress notes within the written Plan: Bronchitis with dry cough. Continue benzonatate and albuterol as needed. Based on the above, could you clarify any further specificity to the documented Bronchitis? Bronchitis Acute, chronic, asthmatic, viral, obstructive, allergic etc. Other (explain) Clinically unable to determine (explain) Thank you, Ria Bradford, CCS, CDIS Use of terms such as suspected, likely, concern for, or probable (associated with a specific diagnosi s that is being evaluated, monitored, or treated as if it exists) are acceptable and can be coded in the inpatient se tting, when documented at the time of discharge. Please use your independent medical judgment in providing your response. THIS QUERY IS PART OF THE PERMANENT MEDICAL RECORD
[2025-01-13 07:18] LABS: INTERNATIONAL NORM RATIO 2.7 (0.9-1.1); Prothrombin Time 31.9 SEC (10.9-12.4)
[2025-01-13 07:22] LABS: Anion Gap 10 (12-20); Blood Urea Nitrogen 22 mg/dL (9-16); Calcium 8.4 mg/dL (8.4-10.2); Carbon Dioxide 32 mmol/L (22-29); Chloride 100 mmol/L (96-108); Creatinine Clr Calc Pharmacy 95.5; Estimated Glomerular Filt Rate > 60; Glucose Random 94 mg/dL (60-115); Potassium 3.8 mmol/L (3.3-5.1); Sodium 138 mmol/L (135-145)
[2025-01-13] MEDS: Furosemide 40 MG TABLET 80 MG PO (08:08)
[2025-01-13] MEDS: lisinopriL 20 MG TABLET 40 MG PO (08:09)
[2025-01-13] MEDS: Doxazosin Mesylate 2 MG TABLET 4 MG PO (08:10)
[2025-01-13] MEDS: 0.9 % Sodium Chloride Flush 3 ML SYRINGE IVFLUSH ×2 (08:11→17:30)
[2025-01-13] MEDS: Milk of Magnesia 30 ML ORAL.SUSP PO (09:47)
--- NOTE | 2025-01-13 12:47 | HO.PM.IMPN ---
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 , reports signficant progess fine motor function is the hand fingers is better, able to stand and walked with PT Physical Exam Vital Signs: Vital Signs: Last Vital Signs Temp 97.5 F 01/13/25 12:00 Pulse 66 01/13/25 12:00 Resp 16 01/13/25 07:30 BP 108/50 L 01/13/25 12:00 Pulse Ox 95 01/13/25 12:00 O2 Del Method Room Air 01/13/25 12:00 BMI result Body Mass Index 30.3 Const: Other: General: AO X 3, no acute distress Resp: CTA bilateral CVS: S1,S2,RRR GI: +BS, NT, no distention Skin: No rash, left knee effusion Neuro: motor grossly intact Psych: appropriate affect Objective Data Active Medications Acetaminophen (Acetaminophen 325 Mg Tablet) 650 mg PO Q6H PRN PRN Reason: Pain, Mild 1-3,fever,headache Acetaminophen (Acetaminophen 325 Mg Tablet) 650 mg PO DAILY@1730 [facility] Stop: 01/14/25 17:31 Last Admin: 01/12/25 17:35 Dose: 650 mg Documented By: BLAISE Al Hydroxide/Mg Hydroxide (Magnesium Hydrox/Alum Hydrox 30 Ml Oral.Susp) 30 ml PO Q4H PRN PRN Reason: Heartburn Albuterol Sulfate (Albuterol Sulfate 90 Mcg 8 Gm Inhaler) 2 puff INHALE Q6H PRN PRN Reason: shortness of breath or wheezing Benzonatate (Benzonatate 100 Mg Capsule) 200 mg PO TID PRN PRN Reason: cough Calcium Carbonate (Calcium Carbonate 750 Mg Tab.Chew) 750 mg PO Q4H PRN PRN Reason: Heartburn Doxazosin Mesylate (Doxazosin Mesylate 2 Mg Tablet) 4 mg PO DAILY [facility]; Protocol Last Admin: 01/13/25 08:10 Dose: 4 mg Documented By: ELIZABETH Finasteride (Finasteride 5 Mg Tablet) 5 mg PO BEDTIME [facility] Last Admin: 01/12/25 20:29 Dose: 5 mg Documented By: RUTH Furosemide (Furosemide 40 Mg Tablet) 40 mg PO BEDTIME [facility]; Protocol Last Admin: 01/12/25 20:32 Dose: 40 mg Documented By: RUTH Furosemide (Furosemide 40 Mg Tablet) 80 mg PO DAILY [facility]; Protocol Last Admin: 01/13/25 08:08 Dose: 80 mg Documented By: ELIZABETH Immune Globulin (Gammagard 10%) 20 gm in 200 mls @ 55 mls/hr IV DAILY@1800 [facility] Stop: 01/14/25 21:39 Last Infusion: 01/12/25 21:56 Dose: Infused Documented By: RUTH Immune Globulin (Gammagard 10%) 20 gm in 200 mls @ 55 mls/hr IV DAILY@2140 [facility] Stop: 01/15/25 01:19 Last Infusion: 01/13/25 01:47 Dose: Infused Documented By: RUTH Immune Globulin (Gammagard 10%) 5 gm in 50 mls @ 55 mls/hr IV DAILY@0120 [facility] Stop: 01/15/25 02:15 Last Infusion: 01/13/25 02:48 Dose: Infused Documented By: RUTH Lisinopril (Lisinopril 20 Mg Tablet) 40 mg PO DAILY [facility]; Protocol Last Admin: 01/13/25 08:09 Dose: 40 mg Documented By: ELIZABETH Lisinopril (Lisinopril 20 Mg Tablet) 20 mg PO BEDTIME [facility]; Protocol Last Admin: 01/12/25 20:32 Dose: 20 mg Documented By: RUTH Magnesium Hydroxide (Milk Of Magnesia 30 Ml Oral.Susp) 30 ml PO DAILY PRN PRN Reason: Constipation Last Admin: 01/13/25 09:47 Dose: 30 ml Documented By: ELIZABETH Melatonin (Melatonin 3 Mg Tablet) 6 mg PO BEDTIME PRN PRN Reason: Insomnia Non-Formulary Medication (Acebutolol) 200 mg PO BEDTIME [facility] Non-Formulary Medication (Acebutolol) 400 mg PO DAILY [facility] Ondansetron HCl (Ondansetron Hcl 4 Mg/2 Ml Vial) 4 mg IVPUSH Q8H PRN PRN Reason: Nausea and Vomiting Polyethylene Glycol (Polyethylene Glycol 3350 17 Gm Powd.Pack) 17 gm PO DAILY PRN PRN Reason: Constipation Sodium Chloride (0.9 % Sodium Chloride Flush 3 Ml Syringe) 3 ml IVFLUSH QSHIFT [facility] Last Admin: 01/13/25 08:11 Dose: 3 ml Documented By: ELIZABETH Warfarin Sodium (Warfarin Sodium 4 Mg Tablet) 4 mg PO DAILY@1800 [facility] Last Admin: 01/12/25 17:35 Dose: 4 mg Documented By: BLAISE Labs 01/13/25 06:55 01/13/25 06:55 Labs: Laboratory Results - last 24 hr 01/13/25 06:55 MCV 91.0 MCH 30.1 MCHC 33.1 RDW 24.7 H Plt Count 177 MPV 11.0 Absolute Nucleated RBC 0.030 H Nucleated RBC % (auto) 0.3 H PT 31.9 H INR 2.7 H Anion Gap 10 L Estim Creat Clear Calc 95.5 Estimated GFR > 60 Random Glucose 94 Calcium 8.4 Assessment and Plan (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 Progressive weakness with fall, DDx Guillain-Calvillo? syndrome, or other forms or neuropathy. CT head and cervical spine are negative for fracture. CXR shows enlargement of the cardiac silhouette with mild interstitial prominence, which can be seen with edema, bronchitis/bronchiolitis, atelectasis, or interstitial lung disease. EKG shows atrial fibrillation with slow ventricular response, left axis deviation, and cannot rule out septal infarct of undetermined age. Troponin is 37.5, repeat 41.1. CRP is 0.73. CK is normal. INR is 3.7, lumbar puncture not planned due to high INR and need for anticoagulation for mechanical valve. Neurology recommended IVIG infusions x 5 days, he continues to show improving, continue for 5 doses Acute Bronchitis with dry cough. Continue benzonatate and albuterol as needed. Hypertension. Continue acebutolol, doxazosin, furosemide, and lisinopril. BPH. Continue finasteride. Mechanical aortic valve. Continue Coumadin with close INR monitoring. Normocytic anemia. No current treatment. Code status: Full. DVT prophylaxis: coumadin, Full code regular diet. Pt recommending STR Quality Stroke Does the patient have a stroke diagnosis?: No VTE Prior VTE?: No VTE Risk Level:: Medical - moderate - high VTE Device Contraindication: Treatment Not Indicated VTE Drug Contraindication: N/A - Med Ordered
--- NOTE | 2025-01-13 14:05 | PC.NURSE ---
pt refusing bed alarm, educated on importance of safety precautions and use of call arrington for assistance if needed. pt verbalized understanding.
[2025-01-13] MEDS: Acetaminophen 325 MG TABLET 650 MG PO (17:25)
[2025-01-13] MEDS: Warfarin Sodium 4 MG TABLET PO (17:30)
[2025-01-13] MEDS: Immune Globulin 10% Gammagard 20 GM/200 ML VIAL IV ×2 (18:31→22:10)
[2025-01-13] MEDS: Finasteride 5 MG TABLET PO (20:51)
[2025-01-13] MEDS: Furosemide 40 MG TABLET PO (20:51)
[2025-01-13] MEDS: lisinopriL 20 MG TABLET PO (20:55)
--- NOTE | 2025-01-13 22:33 | PC.NURSE ---
Previous RN administered Immune Globulin infusion under the wrong time at 2140 when it should have been scanned for 1800. This RN spoke to pharmacist Christina, per pharmacist tom to administer 2140 dose under the previous 1800 dose time.
[2025-01-14] MEDS: Immune Globulin 10% Gammagard 5 GM/50 ML VIAL IV (02:04)
[2025-01-14 03:32] VITALS: BP 149/63; PULSE 60; RESP 18; TEMP 36.2; O2SAT 97
--- NOTE | 2025-01-14 04:07 | PC.NURSE ---
Refuses bed alarm despite fall risk
[2025-01-14 06:00] LABS: INTERNATIONAL NORM RATIO 2.5 (0.9-1.1); Prothrombin Time 29.4 SEC (10.9-12.4)
[2025-01-14 07:32] VITALS: BP 124/58; PULSE 68; RESP 16; TEMP 36.2; O2SAT 95
[2025-01-14] MEDS: lisinopriL 20 MG TABLET 40 MG PO (08:31)
[2025-01-14] MEDS: Furosemide 40 MG TABLET 80 MG PO (08:32)
[2025-01-14] MEDS: Doxazosin Mesylate 2 MG TABLET 4 MG PO (08:32)
[2025-01-14] MEDS: 0.9 % Sodium Chloride Flush 3 ML SYRINGE IVFLUSH ×2 (08:34→17:50)
--- NOTE | 2025-01-14 10:51 | PM.DS ---
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 Overnight, he was unable to stand from the toilet, lowered himself to the floor to use surrounding supports but was too weak and fell, sustaining a head strike without loss of consciousness. The patient and his spend December annually in [facility]. He returned in early January and developed a hacking cough, prompting an ED visit where he was diagnosed with bronchitis and prescribed prednisone, cefuroxime, doxycycline, albuterol, and Tessalon Pearls. Per his PCP?s advice, he did not take the antibiotics but completed the prednisone course and used Tessalon Pearls. While recovering, he developed progressive limb weakness, first noted on 01/05/2025, with difficulty rising from a seated position. The weakness, initially in the legs, has progressed to involve the hands and arms. He denies facial weakness, dysarthria, dysphagia, dyspnea, urinary retention, sensory changes, or pain. He describes the symptoms as weakness and heaviness without numbness or tingling. Hospital course: An 89-year-old male with a history of hypertension, mechanical aortic valve on Coumadin, and BPH presented to the ED with progressive bilateral upper and lower extremity weakness for five days, starting in the legs. CT of the head and cervical spine were negative, CXR was unremarkable, and the viral respiratory panel was negative. 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 He was evaluated by Neurology, who recommended IVIG for five days. Over the course of the treatment, he showed significant improvement. Initially unable to press button with his fingers and unable to walk, he now has full use of his hands and has been doing well with physical therapy, ambulating with a walker. He is recommended for short-term rehab, which he agrees to, and will follow up with Neurology as an outpatient. Acute Bronchitis with dry cough: Resolved. Hypertension: Continue acebutolol, doxazosin, furosemide, and lisinopril. BPH: Continue finasteride. Mechanical aortic valve: Continue Coumadin with close INR monitoring. Normocytic anemia: No current treatment. Dispo: To STR for less than 30 days Time Attestation Discharge Coordination Time (in mins): 40 Quality: Safe Use of Opioids Does Pt have an Active Cancer Diagnosis on the Problem List?: No Quality: Stroke Does the patient have a stroke diagnosis?: No Physical Exam Vital Signs: Vital Signs: Last Vital Signs Temp 97.1 F 01/14/25 07:32 Pulse 68 01/14/25 07:32 Resp 16 01/14/25 07:32 BP 124/58 L 01/14/25 07:32 Pulse Ox 95 01/14/25 07:32 O2 Del Method Room Air 01/14/25 07:32 BMI result Body Mass Index 30.3 General: AO X 3, no acute distress Resp: CTA bilateral CVS: S1,S2,RRR GI: +BS, NT, no distention Skin: No rash Neuro: motor grossly intact Psych: appropriate affect DS: Data Data Completed and Pending Completed studies during hospitalization [Text1]: Procedures Introduction of Remdesivir Anti-infective into Peripheral Vein, Percutaneous Approach, [employer] 5 (11/02/21) Labs on day of discharge: Laboratory Results - last 24 hr 01/14/25 05:42 Hold Purple Top SEE NOTE PT 29.4 H INR 2.5 H Discharge Plan Discharge Anticipated Discharge Date/Time: 01/14/25 12:59 Patient Disposition: Xfer SNF Discharge Diagnosis: Ascending polyneuropathy, [place] syndrome, weakness. Referrals: Milton Durán MD [Primary Care Provider] - 1 Week Discharge Medications: Continued lisinopril 20 mg tablet 40 mg PO DAILY furosemide 80 mg tablet 80 mg PO DAILY doxazosin 4 mg tablet 4 mg PO DAILY acebutolol 200 mg capsule 400 mg PO DAILY finasteride 5 mg tablet 5 mg PO BEDTIME acebutolol 200 mg capsule 200 mg PO BEDTIME warfarin 4 mg tablet 4 mg PO DAILY@1800 benzonatate 200 mg capsule 200 mg PO TID PRN (Reason: cough) Qty: 14 0RF furosemide 40 mg tablet 40 mg PO BEDTIME lisinopril 20 mg tablet 20 mg PO BEDTIME albuterol sulfate 90 mcg/actuation HFA aerosol inhaler 2 puff inhalation Q6H PRN (Reason: shortness of breath or wheezing) Qty: 8.5 0RF Discharge Orders: Discharge Order (Routine); Ordered 01/14/25 Ordered By: Lonnie Last Diet: Advance to usual diet Activity on Discharge: As tolerated Stand Alone Forms: Patient Portal Discharge page Print Language: [place] Care Plan Goals: Recovery from [place] syndrome Health Concerns: Ascending polyneuropathy due to [place], resulting in weakness in limbs Plan of Treatment: Physical therapy, short-term rehab, outpatient follow-up with Neurology Assessment: See above
--- NOTE | 2025-01-14 11:21 | MHC.CM.PN ---
Addendum entered by Jenny Rees RN 01/14/25 11:27: IMM delivered. Original Note: Per MD patient will be medically cleared for dc after 6pm dose of IVIG. Patient has accepted a bed at [facility]. S transport scheduled for 7pm.
[2025-01-14 11:40] VITALS: BP 106/57; PULSE 53; RESP 18; TEMP 36.6; O2SAT 96
[2025-01-14 15:44] VITALS: BP 106/60; PULSE 62; RESP 16; TEMP 36.8; O2SAT 96
[2025-01-14] MEDS: Acetaminophen 325 MG TABLET 650 MG PO (17:44)
[2025-01-14] MEDS: Warfarin Sodium 4 MG TABLET PO (17:44)
--- NOTE | 2025-01-14 19:10 | PM.EVENT ---
Event Note Date of Service: 01/14/25 Event Note: Pt seen and examined, vitals reviewed on 01/14 Pt was supposed to leave at 7 pm, but IVIG infusion was not done and therefore could not go vital were stable, exam: showed improvement in strenght and gait compare to day a/p: Guillain-Bare syndrome with ascending polyneuropathy, improvinng with IVIG infusion x 5 days. late entry note from 01/14 Time Spent With Patient Time: Total time managing care of this patient today __20_ minutes.
[2025-01-14 20:33] VITALS: BP 126/60; PULSE 67; RESP 18; TEMP 36.4; O2SAT 96
[2025-01-14] MEDS: ACEBUTOLOL 200 MG 200 EACH PO (21:47)
[2025-01-14] MEDS: lisinopriL 20 MG TABLET PO (21:48)
[2025-01-14] MEDS: Furosemide 40 MG TABLET PO (21:48)
[2025-01-14] MEDS: Finasteride 5 MG TABLET PO (21:49)
[2025-01-14] MEDS: Immune Globulin 10% Gammagard 20 GM/200 ML VIAL IV ×2 (21:49→22:14)
[2025-01-14] MEDS: Milk of Magnesia 30 ML ORAL.SUSP PO (21:52)
[2025-01-14 23:46] VITALS: BP 134/63; PULSE 64; RESP 17; TEMP 36.3; O2SAT 95
[2025-01-15] VITALS (9 sets, daily range): BP systolic 92–183; BP diastolic 50–77; PULSE 58–71; RESP 16–19; TEMP 36.2–37.6; O2SAT 92–100
--- NOTE | 2025-01-15 | ECG_ITS ---
Test Reason : Syncope Blood Pressure : */* mmHG Vent. Rate : 61 BPM Atrial Rate : * BPM P-R Int : * ms QRS Dur : 160 ms QT Int : 456 ms P-R-T Axes : * -38 73 degrees QTcB Int : 459 ms Atrial fibrillation Left axis deviation Non-specific intra-ventricular conduction block Left ventricular hypertrophy ( R in aVL , Agency product ) Abnormal ECG When compared with ECG of 10-Jan-2025 04:42, QRS duration has increased Minimal criteria for Septal infarct are no longer Present T wave inversion no longer evident in Inferior leads Referred By: Izzy Cano Electronically Signed By: MARITO BRANHAM MD
[2025-01-15] MEDS: Immune Globulin 10% Gammagard 5 GM/50 ML VIAL IV (05:11)
[2025-01-15 07:03] LABS: INTERNATIONAL NORM RATIO 2.5 (0.9-1.1); Prothrombin Time 29.5 SEC (10.9-12.4)
[2025-01-15] MEDS: lisinopriL 20 MG TABLET 40 MG PO (08:17)
[2025-01-15] MEDS: Furosemide 40 MG TABLET 80 MG PO (08:17)
[2025-01-15] MEDS: Doxazosin Mesylate 2 MG TABLET 4 MG PO (08:17)
[2025-01-15] MEDS: ACEBUTOLOL 200 MG 400 EACH PO (08:18)
[2025-01-15] MEDS: 0.9 % Sodium Chloride Flush 3 ML SYRINGE IVFLUSH ×2 (08:18→20:00)
[2025-01-15 15:00] LABS: Glucose, Whole Blood 123 mg/dL (60-115)
[2025-01-15] MEDS: Lactated Ringers 1,000 ML 999 ML IV (15:00)
--- NOTE | 2025-01-15 15:03 | P.CONGS_ITS ---
History of Present Illness Consult details Consult date: 01/15/25 Narrative: Patient was a plethora of comorbidities and intercurrent medical problems. He is currently among other medications on Coumadin. He has a heart valve requiring this. Patient was sustained an abrasion of his right mid forearm and has had bleeding from this intermittently over the last weeks time. He has had similar episodes in different areas of his extremities in the past. Consult is for attempted hemostasis for the abrasion of the left mid forearm wound. Chart was reviewed and patient evaluated PMFSH Past Medical History Medical History Atrial fibrillation HTN (hypertension) Surgical History Surgical History History of cholecystectomy Aortic valve replaced Social History Social History Household Members: Spouse Housing: House Do you presently have visiting nurse or other home services: No Alcohol intake: never Comment: refused bed alarm Patient Tobacco Use Status: Never used Tobacco service: No Current occupational status: retired [employer] Allergies Allergy/AdvReac Type Severity Reaction Status Date / Time adhesive [ADHESIVE] Allergy Intermediate RASH, Verified 01/10/25 04:46 BLISTERS atenolol [Atenolol] Allergy Mild RASH Verified 01/10/25 04:46 sotalol [Sotalol] Allergy Mild RASH Verified 01/10/25 04:46 atorvastatin [From Lipitor] AdvReac Mild SEVERE Verified 01/10/25 04:46 ACHES AND PAINS Active Medications: Current Medications Acetaminophen (Acetaminophen 325 Mg Tablet) 650 mg PO Q6H PRN PRN Reason: Pain, Mild 1-3,fever,headache Al Hydroxide/Mg Hydroxide (Magnesium Hydrox/Alum Hydrox 30 Ml Oral.Susp) 30 ml PO Q4H PRN PRN Reason: Heartburn Albuterol Sulfate (Albuterol Sulfate 90 Mcg 8 Gm Inhaler) 2 puff INHALE Q6H PRN PRN Reason: shortness of breath or wheezing Benzonatate (Benzonatate 100 Mg Capsule) 200 mg PO TID PRN PRN Reason: cough Calcium Carbonate (Calcium Carbonate 750 Mg Tab.Chew) 750 mg PO Q4H PRN PRN Reason: Heartburn Doxazosin Mesylate (Doxazosin Mesylate 2 Mg Tablet) 4 mg PO DAILY [facility]; Protocol Last Admin: 01/15/25 08:17 Dose: 4 mg Finasteride (Finasteride 5 Mg Tablet) 5 mg PO BEDTIME [facility] Last Admin: 01/14/25 21:49 Dose: 5 mg Furosemide (Furosemide 40 Mg Tablet) 40 mg PO BEDTIME [facility]; Protocol Last Admin: 01/14/25 21:48 Dose: 40 mg Furosemide (Furosemide 40 Mg Tablet) 80 mg PO DAILY [facility]; Protocol Last Admin: 01/15/25 08:17 Dose: 80 mg Lactated Ringer's (Lr) 1,000 mls @ 999 mls/hr IV .Q1H1M [facility] Stop: 01/15/25 16:00 Last Admin: 01/15/25 15:00 Dose: 999 mls/hr Lisinopril (Lisinopril 20 Mg Tablet) 40 mg PO DAILY [facility]; Protocol Last Admin: 01/15/25 08:17 Dose: 40 mg Lisinopril (Lisinopril 20 Mg Tablet) 20 mg PO BEDTIME [facility]; Protocol Last Admin: 01/14/25 21:48 Dose: 20 mg Magnesium Hydroxide (Milk Of Magnesia 30 Ml Oral.Susp) 30 ml PO DAILY PRN PRN Reason: Constipation Last Admin: 01/14/25 21:52 Dose: 30 ml Melatonin (Melatonin 3 Mg Tablet) 6 mg PO BEDTIME PRN PRN Reason: Insomnia Patient Own Medication ( Acebutolol 200 Mg Capsule) 200 mg PO BEDTIME [facility] Last Admin: 01/14/25 21:47 Dose: 200 mg Patient Own Medication ( Acebutolol 200 Mg Capsule) 400 mg PO DAILY [facility] Last Admin: 01/15/25 08:18 Dose: 400 mg Ondansetron HCl (Ondansetron Hcl 4 Mg/2 Ml Vial) 4 mg IVPUSH Q8H PRN PRN Reason: Nausea and Vomiting Polyethylene Glycol (Polyethylene Glycol 3350 17 Gm Powd.Pack) 17 gm PO DAILY PRN PRN Reason: Constipation Sodium Chloride (0.9 % Sodium Chloride Flush 3 Ml Syringe) 3 ml IVFLUSH QSHIFT [facility] Last Admin: 01/15/25 15:00 Dose: Not Given Warfarin Sodium (Warfarin Sodium 4 Mg Tablet) 4 mg PO DAILY@1800 [facility] Last Admin: 01/14/25 17:44 Dose: 4 mg Home Medications ?Medication ?Instructions ?Recorded ?Confirmed ?Last Taken ?Type acebutolol 200 mg capsule 200 mg PO BEDTIME 04/17/21 01/10/25 01/09/25 History acebutolol 200 mg capsule 400 mg PO DAILY 04/17/21 01/10/25 01/09/25 History doxazosin 4 mg tablet 4 mg PO DAILY 04/17/21 01/10/25 01/09/25 History finasteride 5 mg tablet 5 mg PO BEDTIME 04/17/21 01/10/25 01/09/25 History furosemide 80 mg tablet 80 mg PO DAILY 04/17/21 01/10/25 01/09/25 History lisinopril 20 mg tablet 40 mg PO DAILY 04/17/21 01/10/25 01/09/25 History warfarin 4 mg tablet 4 mg PO DAILY@1800 11/02/21 01/10/25 01/09/25 History furosemide 40 mg tablet 40 mg PO BEDTIME 01/10/25 01/10/25 01/09/25 History lisinopril 20 mg tablet 20 mg PO BEDTIME 01/10/25 01/10/25 01/09/25 History Physical Exam 2 Vital Signs: Vital Signs: Last Vital Signs Temp 97.1 F 01/15/25 12:00 Pulse 66 01/15/25 12:00 Resp 16 01/15/25 12:00 BP 101/51 L 01/15/25 12:00 Pulse Ox 94 01/15/25 12:00 O2 Del Method Room Air 01/15/25 12:00 BMI result Body Mass Index 30.3 Extrem: Other: Patient was a skin tear measuring roughly 3 x 2 cm of the left mid forearm volar area. No evidence of any infection. Results Labs 01/13/25 06:55 01/13/25 06:55 Labs: Abnormal lab results 01/15/25 01/15/25 Range/Units 06:32 14:55 PT 29.5 H (10.9-12.4) SEC INR 2.5 H (0.9-1.1) POC Glucose 123 H (60-115) mg/dL Urine 01/11/25 Range/Units 00:50 Urine Color Yellow Urine Appearance Clear Urine pH 5.5 (5.0-9.0) Ur Specific Shelly 1.020 (1.005-1.025) Urine Protein 30 (1+) H (Neg-Trace) mg/dL Urine Glucose (UA) Negative (Negative) mg/dL All other labs normal. Assessment and Plan (1) Bleeding from wound: Status: Acute Plan A variety of attempts have been made to congenital hemostasis. I was able to obtain Surgicel and placed this with a pressure dressing and this seems to have temporarily at least controlled the hemostatic issue. Patient was been given local instructions. Procedures Date of Service Date of Service: 01/15/25
--- NOTE | 2025-01-15 15:20 | HO.PM.IMPN ---
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 Pt has been doing well with improved strenght and mobility He was planned to be discharged, however he was having bleeding a laceration from fall prior to hospitalization dn required multiple dressing changes. And finally bleeding seems to have stopped with surgiseal. Patient while trying to void felt dizzy with blury vision and stroke alert was called. He does not have any focal. ECG shows no acute finding, just afib Physical Exam Vital Signs: Vital Signs: Last Vital Signs Temp 97.1 F 01/15/25 12:00 Pulse 61 01/15/25 15:14 Resp 16 01/15/25 15:14 BP 131/61 01/15/25 15:14 Pulse Ox 100 01/15/25 15:14 O2 Del Method Room Air 01/15/25 15:14 BMI result Body Mass Index 30.3 Objective Data Active Medications Acetaminophen (Acetaminophen 325 Mg Tablet) 650 mg PO Q6H PRN PRN Reason: Pain, Mild 1-3,fever,headache Al Hydroxide/Mg Hydroxide (Magnesium Hydrox/Alum Hydrox 30 Ml Oral.Susp) 30 ml PO Q4H PRN PRN Reason: Heartburn Albuterol Sulfate (Albuterol Sulfate 90 Mcg 8 Gm Inhaler) 2 puff INHALE Q6H PRN PRN Reason: shortness of breath or wheezing Benzonatate (Benzonatate 100 Mg Capsule) 200 mg PO TID PRN PRN Reason: cough Calcium Carbonate (Calcium Carbonate 750 Mg Tab.Chew) 750 mg PO Q4H PRN PRN Reason: Heartburn Doxazosin Mesylate (Doxazosin Mesylate 2 Mg Tablet) 4 mg PO DAILY [facility]; Protocol Last Admin: 01/15/25 08:17 Dose: 4 mg Documented By: JUANY Finasteride (Finasteride 5 Mg Tablet) 5 mg PO BEDTIME CHINO Last Admin: 01/14/25 21:49 Dose: 5 mg Documented By: RUBY Lactated Ringer's (Lr) 1,000 mls @ 999 mls/hr IV .Q1H1M CHINO Stop: 01/15/25 16:00 Last Admin: 01/15/25 15:00 Dose: 999 mls/hr Documented By: JUANY Lisinopril (Lisinopril 20 Mg Tablet) 20 mg PO DAILY [facility]; Protocol Magnesium Hydroxide (Milk Of Magnesia 30 Ml Oral.Susp) 30 ml PO DAILY PRN PRN Reason: Constipation Last Admin: 01/14/25 21:52 Dose: 30 ml Documented By: RUBY Melatonin (Melatonin 3 Mg Tablet) 6 mg PO BEDTIME PRN PRN Reason: Insomnia Patient Own Medication ( Acebutolol 200 Mg Capsule) 200 mg PO BEDTIME [facility] Last Admin: 01/14/25 21:47 Dose: 200 mg Documented By: RUBY Patient Own Medication ( Acebutolol 200 Mg Capsule) 400 mg PO DAILY [facility] Last Admin: 01/15/25 08:18 Dose: 400 mg Documented By: JUANY Ondansetron HCl (Ondansetron Hcl 4 Mg/2 Ml Vial) 4 mg IVPUSH Q8H PRN PRN Reason: Nausea and Vomiting Polyethylene Glycol (Polyethylene Glycol 3350 17 Gm Powd.Pack) 17 gm PO DAILY PRN PRN Reason: Constipation Sodium Chloride (0.9 % Sodium Chloride Flush 3 Ml Syringe) 3 ml IVFLUSH QSHIFT [facility] Last Admin: 01/15/25 15:00 Dose: Not Given Documented By: JUANY Non-Admin Reason: IV Running Warfarin Sodium (Warfarin Sodium 4 Mg Tablet) 4 mg PO DAILY@1800 [facility] Last Admin: 01/14/25 17:44 Dose: 4 mg Documented By: ELIZABETH Labs 01/16/25 06:01 01/15/25 15:14 Labs: Laboratory Results - last 24 hr 01/15/25 01/15/25 06:32 14:55 Hold Purple Top SEE NOTE PT 29.5 H INR 2.5 H POC Glucose 123 H Assessment and Plan (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 Progressive weakness with fall, DDx Guillain-[place]villo? syndrome, or other forms or neuropathy. CT head and cervical spine are negative for fracture. CXR shows enlargement of the cardiac silhouette with mild interstitial prominence, which can be seen with edema, bronchitis/bronchiolitis, atelectasis, or interstitial lung disease. EKG shows atrial fibrillation with slow ventricular response, left axis deviation, and cannot rule out septal infarct of undetermined age. Troponin is 37.5, repeat 41.1. CRP is 0.73. CK is normal. INR is 3.7, lumbar puncture not planned due to high INR and need for anticoagulation for mechanical valve. Neurology recommended IVIG infusions x 5 days, he continues to show improving, continue for 5 doses Near syncope, likely vagal episode, BP was low in 90s and come right back up with IVF, he takes multiple meds including lisinopril 40 at night 20 in nv, lasix 80 am and 40 at bedtime, and Acebutolol Lasix reduced to 40 mg daily, and lisinopril reduced to [address] head showed no acute finding, Acute Bronchitis with dry cough. Continue benzonatate and albuterol as needed. Hypertension. Continue acebutolol, doxazosin, furosemide, and lisinopril. Bleeding from old laceration bleeding stopped with surgiseal BPH. Continue finasteride. Mechanical aortic valve. Continue Coumadin with close INR monitoring. Normocytic anemia, chronic and stable. Code status: Full. DVT prophylaxis: coumadin, INR within therapeutic range Full code regular diet. Pt recommending STR Quality Stroke Does the patient have a stroke diagnosis?: No VTE Prior VTE?: No VTE Risk Level:: Medical - moderate - high VTE Device Contraindication: Treatment Not Indicated VTE Drug Contraindication: N/A - Med Ordered
[2025-01-15 15:22] LABS: Hematocrit 25.8 % (42.0-52.0); Hemoglobin 8.6 g/dl (14.0-18.0); Mean Corpuscular HGB Conc 33.3 g/dl (31.0-36.0); Mean Corpuscular Hemoglobin 30.9 pg (27.0-33.0); Mean Corpuscular Volume 92.8 fL (80.0-98.0); Mean Platelet Volume 11.3 fL (9.4-12.4); Platelet Count 171 X10*3/uL (160-400); Red Blood Count 2.78 X10*6/uL (4.60-5.80); Red Cell Distribution Width 24.4 % (11.0-16.0); White Blood Count 8.6 X10*3/uL (4.8-10.8)
--- NOTE | 2025-01-15 15:30 | PC.NURSE ---
[employer] called for patient, states feeling faint, dizzy and blurry vision. See VS, Flow Sheets and Orders. Pt came back around and was transferred to [employer] Tele after Head CT in ED. Pt placed on Tele. LR bolus. All belongs transferred upstairs.
[2025-01-15 15:35] LABS: Alanine Aminotransferase 21 U/L (0-40); Albumin Level 3.3 g/dL (3.5-5.0); Alkaline Phosphatase 56 U/L (39-117); Anion Gap 12 (12-20); Aspartate Amino Transferase 36 U/L (5-37); Bilirubin Total 0.9 mg/dL (0.0-1.0); Blood Urea Nitrogen 25 mg/dL (9-16); Calcium 8.6 mg/dL (8.4-10.2); Carbon Dioxide 29 mmol/L (22-29); Chloride 101 mmol/L (96-108); Creatinine Clr Calc Pharmacy 67.9; Estimated Glomerular Filt Rate > 60; Glucose Random 117 mg/dL (60-115); Magnesium 2.2 mg/dL (1.6-2.6); Potassium 3.7 mmol/L (3.3-5.1); Sodium 138 mmol/L (135-145); Total Protein 8.4 g/dL (6.5-8.0)
[2025-01-15 15:42] LABS: Troponin-I High Sensitivity 34.6 ng/L (<3.5-35.0)
[2025-01-15] MEDS: Warfarin Sodium 4 MG TABLET PO (17:37)
[2025-01-15] MEDS: ACEBUTOLOL 200 MG 200 EACH PO (18:26)
[2025-01-15] MEDS: Finasteride 5 MG TABLET PO (19:58)
[2025-01-16 04:10] VITALS: BP 113/58; PULSE 57; RESP 16; TEMP 36.6; O2SAT 95
[2025-01-16 06:33] LABS: INTERNATIONAL NORM RATIO 2.6 (0.9-1.1); Prothrombin Time 29.8 SEC (10.9-12.4)
[2025-01-16 07:40] VITALS: BP 138/63; PULSE 61; TEMP 36.7; O2SAT 97
[2025-01-16] MEDS: Doxazosin Mesylate 2 MG TABLET 4 MG PO (07:46)
[2025-01-16] MEDS: 0.9 % Sodium Chloride Flush 3 ML SYRINGE IVFLUSH (07:46)
[2025-01-16] MEDS: lisinopriL 20 MG TABLET PO (07:46)
[2025-01-16] MEDS: ACEBUTOLOL 200 MG 400 EACH PO (07:46)
[2025-01-16 08:42] LABS: Hematocrit 25.9 % (42.0-52.0); Hemoglobin 8.4 g/dl (14.0-18.0); Mean Corpuscular HGB Conc 32.4 g/dl (31.0-36.0); Mean Corpuscular Hemoglobin 30.1 pg (27.0-33.0); Mean Corpuscular Volume 92.8 fL (80.0-98.0); Mean Platelet Volume 11.4 fL (9.4-12.4); Platelet Count 148 X10*3/uL (160-400); Red Blood Count 2.79 X10*6/uL (4.60-5.80); White Blood Count 6.7 X10*3/uL (4.8-10.8)
[2025-01-16] MEDS: Furosemide 40 MG TABLET PO (09:55)
--- NOTE | 2025-01-16 10:18 | PM.DS ---
DS: Providers Provider Date of Service: 01/16/25 Date of admission: 01/10/25 13:13 Date of discharge: 01/16/25 Primary care physician: Milton Durán MD Consults: 01/10/25 13:11 Consult to Neurology Routine Consulting Provider: [facility] Reason for consultation: Ascending neuropathy question Guillain-[place] 01/12/25 12:21 Consult to Wound Care Routine Reason for consultation: skin tear Has provider been notified: Yes 01/15/25 09:07 Consult to General Surgery Routine Consulting Provider: [facility] Sur[facility] Reason for consultation: left arm bleedin wound DS: Diagnosis Discharge Diagnosis (1) 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 Overnight, he was unable to stand from the toilet, lowered himself to the floor to use surrounding supports but was too weak and fell, sustaining a head strike without loss of consciousness. The patient and his spend December annually in [facility]. He returned in early January and developed a hacking cough, prompting an ED visit where he was diagnosed with bronchitis and prescribed prednisone, cefuroxime, doxycycline, albuterol, and Tessalon Pearls. Per his PCP?s advice, he did not take the antibiotics but completed the prednisone course and used Tessalon Pearls. While recovering, he developed progressive limb weakness, first noted on 01/05/2025, with difficulty rising from a seated position. The weakness, initially in the legs, has progressed to involve the hands and arms. He denies facial weakness, dysarthria, dysphagia, dyspnea, urinary retention, sensory changes, or pain. He describes the symptoms as weakness and heaviness without numbness or tingling. Hospital course: An 89-year-old male with a history of hypertension, mechanical aortic valve on Coumadin, and BPH presented to the ED with progressive bilateral upper and lower extremity weakness for five days, starting in the legs. CT of the head and cervical spine were negative, CXR was unremarkable, and the viral respiratory panel was negative. 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 He was evaluated by Neurology, who recommended IVIG for five days. Over the course of the treatment, he showed significant improvement. Initially unable to press button with his fingers and unable to walk, he now has full use of his hands and has been doing well with physical therapy, ambulating with a walker. He is recommended for short-term rehab, which he agrees to, and will follow up with Neurology as an outpatient. Near syncope, likely vagal episode. BP was in the 90s but quickly returned to normal with IV fluids. The patient takes multiple medications, including lisinopril 40 mg at night and 20 mg in the morning, Lasix 80 mg in the morning and 40 mg at bedtime, and acebutolol 400 mg in the morning and 200 mg at bedtime. Lasix was reduced to 40 mg daily, and lisinopril was reduced to [address] head showed no acute findings. He was treated with IV fluids and has since returned to his baseline. Let me know if you need any further modifications! Bleeding from old laceration on left arm from fall at home, continued to bleed with routine dressing but was eventually stopped w with surgiseal Acute Bronchitis with dry cough: Resolved. Hypertension: Continue acebutolol, doxazosin, furosemide, and lisinopril. BPH: Continue finasteride. Mechanical aortic valve: Continue Coumadin with close INR monitoring. Normocytic anemia: No current treatment. Dispo: To STR for less than 30 days Time Attestation Discharge Coordination Time (in mins): 40 Quality: Safe Use of Opioids Does Pt have an Active Cancer Diagnosis on the Problem List?: No Quality: Stroke Does the patient have a stroke diagnosis?: No Physical Exam Vital Signs: Vital Signs: Last Vital Signs Temp 98.1 F 01/16/25 07:40 Pulse 61 01/16/25 07:40 Resp 01/16/25 04:10 BP 138/63 01/16/25 07:40 Pulse Ox 97 01/16/25 07:40 O2 Del Method Room Air 01/16/25 07:40 O2 Flow Rate 97 01/16/25 07:40 BMI result Body Mass Index 30.3 Const: Other: General: AO X 3, no acute distress Resp: CTA bilateral CVS: S1,S2,RRR GI: +BS, NT, no distention Skin: No rash, left knee effusion Neuro: motor grossly intact Psych: appropriate affect DS: Data Data Completed and Pending Completed studies during hospitalization [Text1]: Procedures Introduction of Remdesivir Anti-infective into Peripheral Vein, Percutaneous Approach, [employer] 5 (11/02/21) Labs on day of discharge: Laboratory Results - last 24 hr 01/15/25 01/15/25 01/16/25 14:55 15:14 06:01 WBC 8.6 6.7 RBC 2.78 L 2.79 L Hgb 8.6 L 8.4 L Hct 25.8 L 25.9 L MCV 92.8 92.8 MCH 30.9 30.1 MCHC 33.3 32.4 RDW 24.4 H 25.0 H Plt Count 171 148 L MPV 11.3 11.4 Absolute Nucleated RBC 0.000 0.000 Nucleated RBC % (auto) 0.0 0.0 Hold Purple Top SEE NOTE PT 29.8 H INR 2.6 H Sodium 138 Potassium 3.7 Chloride 101 Carbon Dioxide 29 Anion Gap 12 BUN 25 H Creatinine 1.04 Estim Creat Clear Calc 67.9 Estimated GFR > 60 POC Glucose 123 H Random Glucose 117 H Calcium 8.6 Magnesium 2.2 Total Bilirubin 0.9 AST 36 ALT 21 Alkaline Phosphatase 56 Troponin I High Sens 34.6 Total Protein 8.4 H Albumin 3.3 L Blood Type A Negative Antibody Screen NEGATIVE Discharge Plan Discharge Anticipated Discharge Date/Time: 01/16/25 10:19 Patient Disposition: Xfer SNF Discharge Diagnosis: Ascending polyneuropathy, [place] syndrome, weakness. Referrals: [facility] [Other] Guillermina Sutherland MD [Physician] - 2 Weeks Milton Durán MD [Primary Care Provider] - 1 Week Discharge Medications: Continued doxazosin 4 mg tablet 4 mg PO DAILY acebutolol 200 mg capsule 400 mg PO DAILY finasteride 5 mg tablet 5 mg PO BEDTIME acebutolol 200 mg capsule 200 mg PO BEDTIME warfarin 4 mg tablet 4 mg PO DAILY@1800 benzonatate 200 mg capsule 200 mg PO TID PRN (Reason: cough) Qty: 14 0RF albuterol sulfate 90 mcg/actuation HFA aerosol inhaler 2 puff inhalation Q6H PRN (Reason: shortness of breath or wheezing) Qty: 8.5 0RF Changed furosemide 40 mg tablet 40 mg PO DAILY Qty: 30 0RF lisinopril 20 mg tablet 20 mg PO DAILY Qty: 30 0RF Discontinued lisinopril 20 mg tablet 40 mg PO DAILY furosemide 80 mg tablet 80 mg PO DAILY Discharge Orders: Discharge Order (Routine); Ordered 01/16/25 Ordered By: [facility] Diet: Advance to usual diet Activity on Discharge: As tolerated Stand Alone Forms: Patient Portal Discharge page Print Language: Turkmen Care Plan Goals: Recovery from [place] syndrome Health Concerns: Ascending polyneuropathy due to [place], resulting in weakness in limbs is much improved after 5 days of IVIG, PT recommends short term rehab, to follow up with Neurology (Dr. Sutherland) Plan of Treatment: Physical therapy, short-term rehab, outpatient follow-up with Neurology Please note that Lisinipril dose has been changed to only 20 mg daily and Lasix dose reduced to 40 mg daily only, because hypotension and near syncope. Assessment: See above Discharge Date/Time: 01/16/25 14:07
--- NOTE | 2025-01-16 10:52 | MHC.CM.PN ---
PT CLEARED TO DC TODAY TO [facility] TRAN[facility]ORT BOOKED WITH [facility] FOR 1400 HOURS
[2025-01-16 11:53] VITALS: BP 102/59; PULSE 61; RESP 16; TEMP 36.8; O2SAT 96
== END 2025-01-16 14:07 | disposition skilled nursing facility (03) | DRG 96 ==
LOC: HO.ED 05:17 → HO.EDOVER 13:23 → HO.S3 01-11 07:37 → HO.IMC 01-15 15:31
PROVIDERS: Student in an Organized Health Care Education/Training Program; Admitting Provider Internal Medicine; Emergency Provider Emergency Medicine Emergency Medical Services; PCP Family Medicine; Visit Provider Internal Medicine
DX: G61.0 Guillain-Barre syndrome (principal); J20.8 Acute bronchitis due to other specified organisms; I10 Essential (primary) hypertension; R55 Syncope and collapse; G62.89 Other specified polyneuropathies; N40.0 Benign prostatic hyperplasia without lower urinary tract symptoms; D64.9 Anemia, unspecified; Z20.822 Contact with and (suspected) exposure to COVID-19; Z95.2 Presence of prosthetic heart valve; Z79.01 Long term (current) use of 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; Z79.899 Other long term (current) drug therapy
CPT/HCPCS: 36415; 70450; 71045; 72125; 80048; 80053; 81001; 81003; 82550; 82947; 83735; 84484; 85007; 85027; 85610; 85652; 85730; 86140; 86850; 86900; 86901; 87633; 93005; 97110; 97116; 97163; 97166; 97530; 99285; J1569; J7120

== ENCOUNTER → 2025-01-10 04:42 | Outpatient (BNV) | payer MEDICARE, OTHER, SELFPAY | PROVIDERS: Emergency Provider Emergency Medicine Emergency Medical Services; PCP Family Medicine; Visit Provider Internal Medicine Cardiovascular Disease | DX: I48.91 Unspecified atrial fibrillation (principal); R94.31 Abnormal electrocardiogram [ECG] [EKG]; R53.1 Weakness | CPT/HCPCS: 93010 ==

== ENCOUNTER → 2025-01-10 04:54 | Outpatient (BNV) | payer MEDICARE, OTHER, SELFPAY | PROVIDERS: Emergency Provider Emergency Medicine Emergency Medical Services; PCP Family Medicine; Visit Provider Radiology Vascular & Interventional Radiology | DX: M50.30 Other cervical disc degeneration, unspecified cervical region (principal); I67.82 Cerebral ischemia; R91.8 Other nonspecific abnormal finding of lung field; I51.7 Cardiomegaly; Z98.890 Other specified postprocedural states | CPT/HCPCS: 70450; 72125 ==

== ENCOUNTER 2025-01-10 13:13 | Outpatient (BNV) | payer MEDICARE, OTHER, SELFPAY | END 2025-01-15 14:59 | PROVIDERS: Admitting Provider Internal Medicine; Emergency Provider Emergency Medicine Emergency Medical Services; PCP Family Medicine; Visit Provider Internal Medicine Cardiovascular Disease | DX: I48.91 Unspecified atrial fibrillation (principal) | CPT/HCPCS: 93010 ==

== ENCOUNTER 2025-01-10 13:13 | Outpatient (BNV) | payer MEDICARE, OTHER, SELFPAY | END 2025-01-15 15:22 | PROVIDERS: Admitting Provider Internal Medicine; Emergency Provider Emergency Medicine Emergency Medical Services; PCP Family Medicine; Visit Provider Radiology Vascular & Interventional Radiology | DX: R90.82 White matter disease, unspecified (principal); R55 Syncope and collapse | CPT/HCPCS: 70450 ==

== ENCOUNTER → 2025-01-10 13:13 | Outpatient (BNV) | payer MEDICARE, OTHER, SELFPAY | PROVIDERS: Admitting Provider Internal Medicine; Emergency Provider Emergency Medicine Emergency Medical Services; PCP Family Medicine; Visit Provider Surgery | DX: T14.8XXA Other injury of unspecified body region, initial encounter (principal) | CPT/HCPCS: 99222 ==

== ENCOUNTER → 2025-01-10 13:13 | Outpatient (BNV) | payer MEDICARE, OTHER, SELFPAY | PROVIDERS: Admitting Provider Internal Medicine; Emergency Provider Emergency Medicine Emergency Medical Services; PCP Family Medicine; Visit Provider Psychiatry & Neurology Neurology | DX: G61.0 Guillain-Barre syndrome (principal); Z95.2 Presence of prosthetic heart valve | CPT/HCPCS: 99222 ==

== ENCOUNTER → 2025-01-10 13:13 | Outpatient (BNV) | payer MEDICARE, OTHER, SELFPAY | PROVIDERS: Admitting Provider Internal Medicine; Emergency Provider Emergency Medicine Emergency Medical Services; PCP Family Medicine; Visit Provider Internal Medicine | DX: G61.0 Guillain-Barre syndrome (principal); G62.9 Polyneuropathy, unspecified | CPT/HCPCS: 99223; 99232; 99499 ==

== ENCOUNTER 2025-02-01 09:02 | Outpatient (REF) | payer MEDICARE, OTHER, SELFPAY ==
[2025-02-01 09:54] LABS: Basophils Percent Auto 0.5 % (0-2); Eosinophils Percent Auto 0.8 % (0-4); Hematocrit 26.7 % (42.0-52.0); Hemoglobin 8.6 g/dl (14.0-18.0); Imm Gran Abs Auto 0.02 X10*3/uL (0.00-0.03); Imm Gran Pct Auto 0.5 % (0.0-0.4); Lymphocytes Absolute Auto 1.5 X10*3/uL (1.2-4.9); Lymphocytes Percent Auto 41.6 % (20-40); MANUAL DIFF FLAG SCAN; Mean Corpuscular HGB Conc 32.2 g/dl (31.0-36.0); Mean Corpuscular Hemoglobin 30.4 pg (27.0-33.0); Mean Corpuscular Volume 94.3 fL (80.0-98.0); Mean Platelet Volume 11.9 fL (9.4-12.4); Monocytes Percent Auto 27.1 % (2-11); NRBC Pct Auto 0.5 /100WBC (0.0-0.2); Neutrophils Absolute Auto 1.1 x10*3/uL (2.0-8.3); Neutrophils Percent Auto 29.5 % (45-73); Platelet Count 134 X10*3/uL (160-400); Red Blood Count 2.83 X10*6/uL (4.60-5.80); Red Cell Distribution Width 24.5 % (11.0-16.0); SCAN SMEAR FLAG 1; White Blood Count 3.7 X10*3/uL (4.8-10.8)
--- OUTSIDE RECORDS SUMMARY | 2025-02-01 09:57 | XMS_ITS | Patient Health Record ---
[facility] Address [address] [place] [address] Care Team Providers Care [employer] Name Role Phone Luis Armando YANG, Milton Primary Care Provider UnavailFady Mcfarland Unavailable [phone] Allergies Allergen (clinical drug ingredient) Drug/Non Drug [...] Problem Acquired hammer toe of right foot (8456186688308 105) Other hammer toe(s) (acquired), right foot (M20.41) Active confirmed Problem Acquired hammer toe of left foot ([id number] 103) Other hammer toe(s) (acquired), left foot [...] Medicare [employer] [address] [place] [address] [id number] Keegan Fagan Jr Self - patient is the insured [facility] [address] [place] [address] [id number] Keegan Fagan Jr Self - patient is the insured Medical (General) History Medical History History ICD Code Arthritis Back,Hip,and Knee pain Gall bladder problems Heart disease High blood pressure Scarlet fever Measles Mumps Chicken pox Surgical History Surgery Date(Month/Year) Right eye surgery 195 gall bladder 2003 heart surgery unspecified 2000 Hospitalization History Reason Date(Month/Year) [facility] [place] 1 week 10/2021
--- OUTSIDE RECORDS SUMMARY | 2025-02-01 09:57 | XMS_ITS | Encounter Summary ---
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) use of 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 Social History Tobacco Use Types Packs/Day Years Used Date Smoking Tobacco: Never Smokeless Tobacco: Never Alcohol Use Standard Drinks/Week Comments Yes 1 (1 standard drink = 0.6 oz pur e alcohol) Sex and Gender Information Value Date Recorded Sex Assigned at Not on file Legal Sex Male 4:20 PM EST Gender Identity Not on file Sexual Orientation Not on file documented as of this encounter Plan of Treatment Not on file documented as of this encounter Procedures Procedure Name Priority Date/Time Associated Diagnosis Comments MANUAL DIFFERENTIAL - SYSMEX WAM Routine 01/17/2025 6:19 AM EST Encounter for other general examination 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) use of 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 PATHOLOGIST REVIEW BLOOD SMEAR Routine 01/17/2025 6:19 AM EST Encounter for other general examination [facility] (current) use of 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 CBC WITH AUTO DIFFERENTIAL Routine 01/17/2025 6:19 AM EST Encounter for other general examination 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) use of 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 PROTHROMBIN TIME WITH INR Routine 01/17/2025 6:19 AM EST Encounter for other general examination [facility] (current) use of 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 CBC AND DIFFERENTIAL Routine 01/17/2025 6:19 AM EST Encounter for other general examination 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 Target cells - consider liver disease or other etiologies. Monocytosis confirmed - consider reactive conditions versus a myelodysplastic/mye loproliferative neoplasm (CMML). ??See note. Occasional hyposegmented and hypogranular neutrophils are present. Note: ??Clinical correlation and follow-up is recommended, including a follow-up CBC to assess for persistence of the patient's cytopenias and monocytosis. ??If the changes are persistent and/or progressive and if reactive causes are excluded, further evaluation (including possible referral to hematology/oncology and possible bone marrow evaluation) should be considered. 01/19/2025 1:27 PM EST [facility] Blood Venous blood specimen / Unknown Venipuncture / Unknown 01/17/2025 6:19 AM EST 01/17/2025 12:22 PM EST us Bonilla Sosa MD LAB BLOOD ORDERABLES Final Res ult [facility] [address] [place] [address], [place] [phone] * (ABNORMAL) Manual differential (01/17/2025 6:19 AM EST) Neutrophils % 36.0 % LAB HEMETOLOGY METHOD 01/17/2025 5:20 PM [facility] Bands % 4.0 % LAB HEMETOLOGY METHOD 01/17/2025 5:20 PM [facility] Lymphocytes % 23.0 % LAB HEMETOLOGY METHOD 01/17/2025 5:20 PM [facility] Reactive Lymphocyte 2.00 % LAB HEMETOLOGY METHOD 01/17/2025 5:20 PM [facility] Monocytes % 32.0 % LAB HEMETOLOGY METHOD 01/17/2025 5:20 PM [facility] Eosinophils % 1.0 % LAB HEMETOLOGY METHOD 01/17/2025 5:20 PM [facility] Basophils % 0.0 % LAB HEMETOLOGY METHOD 01/17/2025 5:20 PM [facility] Metamyelocytes % 1.0(H) % LAB HEMETOLOGY METHOD 01/17/2025 5:20 PM [facility] Myelocytes % 1.0(H) % LAB HEMETOLOGY METHOD 01/17/2025 5:20 PM [facility] Neutrophils Absolute Manual 2.56 1.50 - 7.00 K/mcL LAB HEMETOLOGY METHOD 01/17/2025 5:20 PM [facility] Bands Absolute Manual 0.28(H) 0.00 - 0.00 K/mcL LAB HEMETOLOGY METHOD 01/17/2025 5:20 PM [facility] Lymphocytes Absolute 1.63 1.00 - 5.00 K/mcL LAB HEMETOLOGY METHOD 01/17/2025 5:20 PM [facility] Reactive Lymph Abs Manual 0.14(H) 0.00 - 0.00 lym LAB HEMETOLOGY METHOD 01/17/2025 5:20 PM EST [facility] Monocytes Absolute Manual 2.27(H) 0.20 - 1.00 K/mcL LAB HEMETOLOGY METHOD 01/17/2025 5:20 PM EST [facility] Eosinophils Absolute Manual 0.07 0.00 - 0.50 K/mcL LAB HEMETOLOGY METHOD 01/17/2025 5:20 PM EST [facility] Basophils Absolute Manual 0.00 0.00 - 0.20 K/[facility] LAB HEMETOLOGY METHOD 01/17/2025 5:20 PM EST [facility] Metamyelocytes Absolute Manual 0.07(H) 0.00 - 0.00 K/mcL LAB HEMETOLOGY METHOD 01/17/2025 5:20 PM EST [facility] Myelocytes Absolute Manual 0.07(H) 0.00 - 0.00 K/[facility] LAB HEMETOLOGY METHOD 01/17/2025 5:20 PM EST [facility] Blood Venous blood specimen / Unknown Venipuncture / Unknown 01/17/2025 6:19 AM EST 01/17/2025 12:22 PM EST us Bonilla Sosa MD LAB BLOOD ORDERABLES Final Res ult [facility] [address] [place] [address], * (ABNORMAL) CBC auto differential (01/17/2025 6:19 AM EST) WBC 7.1 4.8 - 10.8 K/mcL LAB HEMETOLOGY METHOD 01/17/2025 5:20 PM EST [facility] RBC 2.60(L) 4.50 - 5.50 M/mcL LAB HEMETOLOGY METHOD 01/17/2025 5:20 PM EST [facility] Hemoglobin 7.7(L) 13.5 - 17.5 g/dL LAB HEMETOLOGY METHOD 01/17/2025 5:20 PM EST [facility] Hematocrit 25.2(L) 42.0 - 54.0 % LAB HEMETOLOGY METHOD 01/17/2025 5:20 PM [facility] MCV 96.9 79.0 - 98.0 FL LAB HEMETOLOGY METHOD 01/17/2025 5:20 PM EST [facility] MCH 29.6 27.0 - 32.0 pcg LAB HEMETOLOGY METHOD 01/17/2025 5:20 PM [facility] MCHC 30.6(L) 32.0 - 37.0 g/dL LAB HEMETOLOGY METHOD 01/17/2025 5:20 PM [facility] RDW 24.7(H) 11.0 - 15.0 % LAB HEMETOLOGY METHOD 01/17/2025 5:20 PM [facility] Platelets 120(L) 130 - 400 K/mcL LAB HEMETOLOGY METHOD 01/17/2025 5:20 PM [facility] MPV 11.9(H) 7.0 - 11.0 FL LAB HEMETOLOGY METHOD 01/17/2025 5:20 PM [facility] NRBC 0.0 <1.0 % LAB HEMETOLOGY METHOD 01/17/2025 5:20 PM [facility] NRBC Absolute 0.00 <0.10 K/mcL LAB HEMETOLOGY METHOD 01/17/2025 5:20 PM [facility] Blood Venous blood specimen / Unknown Venipuncture / Unknown 01/17/2025 6:19 AM EST 01/17/2025 12:22 PM EST us Bonilla Sosa MD LAB BLOOD ORDERABLES Final Res ult [facility] [address] [place] [address], [place] [phone] * (ABNORMAL) Prothrombin time with INR (01/17/2025 6:19 AM EST) [facility] Protime 29.7(H) 10.6 - 13.9 sec LAB COAGULATION METHOD 01/17/2025 1:26 PM EST [facility] INR 2.4 LAB COAGULATION METHOD 01/17/2025 1:26 PM EST [facility] Blood Venous blood specimen / Unknown Venipuncture / Unknown 01/17/2025 6:19 AM EST 01/17/2025 12:22 PM EST Bonilla Sosa MD LAB BLOOD ORDERABLES Final Res ult Performing Organization Address City/[facility]/ZIP Co de Phone Number [facility] [address] [place] [address], [place] [phone] * Magnesium (01/17/2025 6:19 AM EST) [facility] Magnesium 2.2 1.9 - 2.6 mg/dL LAB CHEMISTRY METHOD 01/17/2025 1:53 PM EST [facility] Blood Venous blood specimen / Unknown Venipuncture / Unknown 01/17/2025 6:19 AM EST 01/17/2025 12:22 PM EST Bonilla Sosa MD LAB BLOOD ORDERABLES Final Res ult [facility] [address] [place] [address], [place] [phone] * (ABNORMAL) Comprehensive metabolic panel (01/17/2025 6:19 AM EST) [facility] Sodium 137 133 - 145 mmol/L LAB CHEMISTRY METHOD 01/17/2025 1:53 PM EST [facility] Potassium 3.9 3.5 - 5.5 mmol/L LAB CHEMISTRY METHOD 01/17/2025 1:53 PM [facility] Chloride 103 96 - 110 mmol/L LAB CHEMISTRY METHOD 01/17/2025 1:53 PM [facility] CO2 32 21 - 32 mmol/L LAB CHEMISTRY METHOD 01/17/2025 1:53 PM [facility] Anion Gap 2(L) 3 - 11 LAB CHEMISTRY METHOD 01/17/2025 1:53 PM [facility] Glucose 77 70 - 100 mg/dL LAB CHEMISTRY METHOD 01/17/2025 1:53 PM [facility] BUN 22 5 - 25 mg/dL LAB CHEMISTRY METHOD 01/17/2025 1:53 PM [facility] Creatinine 0.89 0.70 - 1.30 mg/dL LAB CHEMISTRY METHOD 01/17/2025 1:53 PM [facility] eGFR 82 >=60 mL/min/1. 73m2 LAB CHEMISTRY METHOD 01/17/2025 1:53 PM [facility] Comment:Calculation based on the??Chronic Kidney Disease Epidemiology Collaboration (CKD-EPI) equation refit??without adjustment for race. BUN/Creatinine Ratio 24.7 LAB CHEMISTRY METHOD 01/17/2025 1:53 PM [facility] Calcium 8.2(L) 8.5 - 10.5 mg/dL LAB CHEMISTRY METHOD 01/17/2025 1:53 PM [facility] AST (SGOT) 26 10 - 42 unit/L LAB CHEMISTRY METHOD 01/17/2025 1:53 PM [facility] ALT (SGPT) 23 10 - 60 unit/L LAB CHEMISTRY METHOD 01/17/2025 1:53 PM [facility] Alkaline Phosphatase 59 42 - 121 unit/L LAB CHEMISTRY METHOD 01/17/2025 1:53 PM [facility] Total Protein 7.2 6.0 - 8.0 g/dL LAB CHEMISTRY METHOD 01/17/2025 1:53 PM EST [facility] Albumin 2.9(L) 3.2 - 5.0 g/dL LAB CHEMISTRY METHOD 01/17/2025 1:53 PM EST [facility] Total Bilirubin 0.8 0.0 - 1.4 mg/dL LAB CHEMISTRY METHOD 01/17/2025 1:53 PM EST [facility] Blood Venous blood specimen / Unknown Venipuncture / Unknown 01/17/2025 6:19 AM EST 01/17/2025 12:22 PM EST us Bonilla Sosa MD LAB BLOOD ORDERABLES Final Res ult [facility] [address] [place] [address], [place] [phone] documented in this encounter Visit Diagnoses Diagnosis Encounter for other general examination [facility] (current) use of 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 Long-term (current) use of 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 documented in this encounter Care Teams Mattress Spring Encaser Relationship Specialty Start Date End Date Milton Durán MD [address] [place] [address] [place] [address] PCP - General 02/03/18 documented as of this encounter
--- OUTSIDE RECORDS SUMMARY | 2025-02-01 09:57 | XMS_ITS | Clinical Summary ---
Author Organization [address] [place] [address] [place] [phone] Phone Care Team Providers Care Tie Buyer Name Role Phone Milton Durán MD Primary Care Provider [phone] Allergies Active Allergy Reactions Criticality Noted Date Comments Adhesive Tape-Silicones 06/05/2021 Atenolol 06/05/2021 Atorvastatin Calcium 06/05/2021 Sotalol 06/05/2021 Medications sildenafil citrate (VIAGRA ORAL) Take by mouth as needed. Active sodium chloride (AYR) 0.65 % nasal drops Active amoxicillin (AMOXIL) 500 mg capsule Take 1 capsule (500 mg total) by mouth 1 (one) time each day. Active rosuvastatin (CRESTOR) 40 mg tablet Take 40 mg by mouth daily. Active doxazosin (CARDURA) 4 mg tablet Take 4 mg by mouth daily. Active finasteride (PROSCAR) 5 mg tablet Take 5 mg by mouth daily. Active lisinopriL (PRINIVIL,ZESTR IL) 20 mg tablet Take 20 mg by mouth daily. 40mg in the morning, 20 at night Active warfarin (COUMADIN) 5 mg tablet Take 5 mg by mouth daily. Active furosemide (LASIX) 40 mg tablet TAKE 2 TAB IN THE MORNING AND 1 TAB IN THE AFTERNOON 90 tablet 5 4 Active Active Problems Problem Noted Date Diagnosed Date Pulmonary hypertension 08/20/2024 Overview (09/27/2024): Last Assessment & Plan: From longstanding atrial fibrillation, and heart failure with preserved EF. Hopefully, with more aggressive diuresis, pulmonary arterial systolic pressure should improve. Atrial fibrillation and flutter 06/05/2021 Overview (09/27/2024): Atrial fibrillation and flutter Last Assessment & Plan: Does not require rate control medications, has no sign of profound bradycardia. Will continue to monitor clinically. Bicuspid aortic valve 06/05/2021 Overview (09/27/2024): Bicuspid aortic valve Last Assessment & Plan: Status post mechanical AVR. On Coumadin endocarditis prophylaxis. CHF (congestive heart failure) 06/05/2021 Overview (09/27/2024): Last Assessment & Plan: Is small volume overloaded with moderate lower extremity edema and dilated IVC with poor collapse. He is on furosemide 80 mg in the morning. I will add additional 40 mg in the afternoon. Will check BMP, magnesium and BNP. Syncope 06/05/2021 Overview (09/27/2024): Syncope Sick sinus syndrome 06/05/2021 Overview (09/27/2024): Sick sinus syndrome Encounters Date Type Department Care Team Description 01/17/2025 Lab Requisition [facility] - Main Lab [address] [facility] [place] [phone] Bonilla Sosa MD Encounter for other general examination; [facility]DC (current) use of 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 from Last 3 Months Social History Tobacco Use Types Packs/Day Years Used Date Smoking Tobacco: Never Smokeless Tobacco: Never Alcohol Use Standard Drinks/Week Comments Yes 1 (1 standard drink = 0.6 oz pur e alcohol) Sex and Gender Information Value Date Recorded Sex Assigned at Not on file Legal Sex Male 4:20 PM EST Gender Identity Not on file Sexual Orientation Not on file Obstetrics History Last Filed Vital Signs Vital Sign Reading Time Taken Comments Blood Pressure 140/60 08/20/2024 10:51 AM EDT Pulse 57 08/20/2024 10:51 AM EDT Temperature - - Respiratory Rate - - Oxygen Saturation - - Inhaled Oxygen Concentration - - Weight 113 kg (249 lb) 08/20/2024 10:51 AM EDT Height 198.1 cm (6' 6 ) 08/20/2024 10:51 AM EDT Body Mass Index 28.77 08/20/2024 10:51 AM EDT Plan of Treatment Health Maintenance Due Date Last Done Comments DTaP,Tdap,and Td Vaccines (1 - Tdap) 1954 Pneumococcal Vaccine: 50+ Years (1 of 2 - PCV) 1954 Zoster Vaccines (1 of 2) 1985 RSV Immunization Patients 60+ Years Old (1 - 1-dose 75+ series) 2010 Cholesterol Screening (Lipid Panel) 10/30/2022 Depression Screening 10/30/2022 Falls Risk Assessment 10/30/2022 Medicare Annual Wellness Visit 10/30/2022 Social Influencers of Health Screening 10/30/2022 COVID-19 Vaccine (2 - season) 2024 01/04/2021 Influenza Vaccine (#1) 2024 2, 10/04/2021, 08/18/2020, Additional history exists Hypertension/CHF/CAD Annual BMP Blood Test 01/17/2026 01/17/2025 HIB Vaccines Aged Out No longer eligi ble based on patient's age to complete this topic HPV Vaccines Aged Out No longer eligi ble based on patient's age to complete this topic Hepatitis A Vaccines Aged Out No long er eligible based on patient's age to complete this topic Hepatitis B Vaccines Aged Out No long er eligible based on patient's age to complete this topic IPV Vaccines Aged Out No longer eligi ble based on patient's age to complete this topic MMR Vaccines Aged Out No longer eligi ble based on patient's age to complete this topic Meningococcal ACWY Vaccine Aged Out N o longer eligible based on patient's age to complete this topic Meningococcal B Vacine Aged Out No lo nger eligible based on patient's age to complete this topic RSV Immunization Patients Under 20 months Aged Out No longer eligible based on patient's age to complete this topic Varicella Vaccines Aged Out No longer eligible based on patient's age to complete this topic Procedures Procedure Name Priority Date/Time Associated Diagnosis Comments MANUAL DIFFERENTIAL - SYSMEX WAM Routine 01/17/2025 6:19 AM EST 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 PATHOLOGIST REVIEW BLOOD SMEAR Routine 01/17/2025 6:19 AM EST Encounter for other general examination [facility]DC (current) use of 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 CBC WITH AUTO DIFFERENTIAL Routine 01/17/2025 6:19 AM EST Encounter for other general examination [facility] (current) use of 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 PROTHROMBIN TIME WITH INR Routine 01/17/2025 6:19 AM EST 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 MAGNESIUM Routine 01/17/2025 6:19 AM EST 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 CBC AND DIFFERENTIAL Routine 01/17/2025 6:19 AM EST 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 COMPREHENSIVE METABOLIC PANEL Routine 01/17/2025 6:19 AM EST Encounter for other general examination [facility] (current) use of 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 from Last 3 Months Results * (ABNORMAL) Manual differential (01/17/2025 6:19 AM [...] lym LAB HEMETOLOGY METHOD 01/17/2025 5:20 PM [facility] Monocytes Absolute Manual 2.27(H) 0.20 - 1.00 K/mcL LAB HEMETOLOGY METHOD 01/17/2025 5:20 PM [facility] Eosinophils Absolute Manual 0.07 0.00 - 0.50 K/mcL LAB HEMETOLOGY METHOD 01/17/2025 5:20 PM [facility] Basophils Absolute Manual 0.00 0.00 - 0.20 K/mcL LAB HEMETOLOGY METHOD 01/17/2025 5:20 PM [facility] Metamyelocytes Absolute Manual 0.07(H) 0.00 - 0.00 K/mcL LAB HEMETOLOGY METHOD 01/17/2025 5:20 PM [facility] Myelocytes Absolute Manual 0.07(H) 0.00 - 0.00 K/mcL LAB HEMETOLOGY METHOD 01/17/2025 5:20 PM EST [facility] Blood Venous blood specimen / Unknown Venipuncture / Unknown 01/17/2025 6:19 AM EST 01/17/2025 12:22 PM EST us Bonilla Sosa MD LAB BLOOD ORDERABLES Final Res ult [facility] [address] [place] [address], [place] [phone] * Pathology review, blood smear (01/17/2025 6:19 [...] should be considered. 01/19/2025 1:27 PM EST [facility] Blood Venous blood specimen / Unknown Venipuncture / Unknown 01/17/2025 6:19 AM EST 01/17/2025 12:22 PM EST us Bonilla Sosa MD LAB BLOOD ORDERABLES Final Res ult [facility] [address] [place] [address], [place] [phone] * (ABNORMAL) CBC auto differential (01/17/2025 6:19 AM EST) WBC 7.1 4.8 - 10.8 K/mcL LAB HEMETOLOGY METHOD 01/17/2025 5:20 PM [facility] RBC 2.60(L) 4.50 - 5.50 M/mcL LAB HEMETOLOGY METHOD 01/17/2025 5:20 PM [facility] Hemoglobin 7.7(L) 13.5 - 17.5 g/dL LAB HEMETOLOGY METHOD 01/17/2025 5:20 PM [facility] Hematocrit 25.2(L) 42.0 - 54.0 % LAB HEMETOLOGY METHOD 01/17/2025 5:20 PM [facility] MCV 96.9 79.0 - 98.0 FL LAB HEMETOLOGY METHOD 01/17/2025 5:20 PM [facility] MCH 29.6 27.0 - 32.0 [...] ORDERABLES Final Res ult Performing Organization Address City/[facility]/ZIP Co de Phone Number [facility] [address] [place] [address], [place] [phone] * (ABNORMAL) Prothrombin time with INR (01/17/2025 6:19 AM EST) Protime 29.7(H) 10.6 - 13.9 sec LAB COAGULATION METHOD 01/17/2025 1:26 PM EST [facility] INR 2.4 LAB COAGULATION METHOD 01/17/2025 1:26 PM EST [facility] Blood Venous blood specimen / Unknown Venipuncture / Unknown 01/17/2025 6:19 AM EST 01/17/2025 12:22 PM EST Bonilla Sosa MD LAB BLOOD ORDERABLES Final Res ult Performing Organization Address [facility] Co de Phone Number [facility] [address] [place] [address], [place] [phone] * Magnesium (01/17/2025 6:19 AM EST) Magnesium 2.2 1.9 - 2.6 mg/dL LAB CHEMISTRY METHOD 01/17/2025 1:53 PM EST [facility] Blood Venous blood specimen / Unknown Venipuncture / Unknown 01/17/2025 6:19 AM EST 01/17/2025 12:22 PM EST Bonilla Sosa MD LAB BLOOD ORDERABLES Final Res ult Performing Organization Address City/[facility]/ZIP Co de Phone Number [facility] [address] [place] [address], * (ABNORMAL) Comprehensive metabolic panel (01/17/2025 6:19 AM EST) Sodium 137 133 - 145 mmol/L LAB CHEMISTRY METHOD 01/17/2025 1:53 PM [facility] Potassium 3.9 3.5 - 5.5 [...] unit/L LAB CHEMISTRY METHOD 01/17/2025 1:53 PM EST [facility] Alkaline Phosphatase 59 42 - 121 unit/L LAB CHEMISTRY METHOD 01/17/2025 1:53 PM [facility] Total Protein 7.2 6.0 - 8.0 g/dL LAB CHEMISTRY METHOD 01/17/2025 1:53 PM EST [facility] Albumin 2.9(L) 3.2 - 5.0 g/dL LAB CHEMISTRY METHOD 01/17/2025 1:53 PM [facility] Total Bilirubin 0.8 0.0 - 1.4 mg/dL LAB CHEMISTRY METHOD 01/17/2025 1:53 PM [facility] Blood Venous blood specimen / Unknown Venipuncture / Unknown 01/17/2025 6:19 AM EST 01/17/2025 12:22 PM EST us Bonilla Sosa MD LAB BLOOD ORDERABLES Final Res ult [facility] [address] [place] [address], from Last 3 Months Insurance MEDICARE Care Teams Tie Buyer Relationship Specialty Start Date End Date Milton Durán MD [address] [place] [address] [place] [address] PCP - General 02/03/18
[2025-02-01 10:21] LABS: Alanine Aminotransferase 14 U/L (0-40); Anion Gap 11 (12-20); Aspartate Amino Transferase 32 U/L (5-37); Blood Urea Nitrogen 14 mg/dL (9-16); Carbon Dioxide 27 mmol/L (22-29); Chloride 107 mmol/L (96-108); Estimated Glomerular Filt Rate > 60; Magnesium 2.1 mg/dL (1.6-2.6); Potassium 4.1 mmol/L (3.3-5.1); Sodium 141 mmol/L (135-145)
[2025-02-01 11:05] LABS: SLIDE REVIEW VERIFIED
== END 2025-02-01 09:03 | disposition home or self-care (01) ==
LOC: HO.LAB 09:02
PROVIDERS: Visit Provider Family Medicine
DX: D64.9 Anemia, unspecified (principal); I10 Essential (primary) hypertension; E87.6 Hypokalemia; E78.00 Pure hypercholesterolemia, unspecified
CPT/HCPCS: 36415; 80051; 82550; 82565; 83735; 84450; 84460; 84520; 85025

== ENCOUNTER 2025-02-06 23:51 | Emergency (ER) | payer MEDICARE, OTHER, SELFPAY ==
--- NOTE | ~2025-02-06 | CT_ITS ---
CLINICAL HISTORY: pain, divertic? CT ABDOMEN AND PELVIS WITH CONTRAST COMPARISON: CT left hip 06/15/2024. FINDINGS: Exam is significantly motion limited. Heterogeneous mass in the lateral subcutaneous tissues of the left hip measures 7.1 x 5.4 cm. Previously it measured 6.3 x 5.0 cm. Neoplastic disease will need to be excluded. No evidence of a small-bowel obstruction or free air. No pericolonic inflammation. Appendix is visualized and there is no evidence of an acute appendicitis. There is a small amount of free fluid in the pelvis on axial image 599. No loculated fluid collection. Small bilateral pleural effusions are noted. There are a few small nodules in the right lower lobe measuring up to 3 mm in size, for example seen on axial image 41 and coronal image 84. There is a small amount of perihepatic ascites. The liver is heterogeneous. Several liver cysts are noted. There also subcentimeter low-attenuation lesions in the liver which are too small to characterize. Cholecystectomy clips are present. Stomach is significantly underdistended which precludes accurate assessment. Pancreas is partially obscured due to motion artifact. No gross abnormality. Spleen is unremarkable. Thickening/nodularity of the adrenal glands is noted. 1.3 cm right renal cyst is noted. No hydronephrosis or obstructing stone bilaterally. Urinary bladder is distended and contains a diverticulum in its superior aspect, for example seen on axial image 489. Urinary bladder is noted to be thick-walled, for which correlation with urinalysis is advised. Prostate gland is noted to indent upon the inferior aspect of the urinary bladder. Prostate gland is estimated to measure approximately 4.9 x 4.6 cm on axial image 690. No adenopathy. Bone windows demonstrate no acute abnormalities. Degenerative changes are noted in the lumbar spine and visualized thoracic spine. Multilevel vacuum disc degeneration is noted. IMPRESSION: 1. A mildly heterogeneous mass is noted within the lateral subcutaneous tissues of the left hip, and is estimated to measure 7.1 x 5.4 cm. Previously it measured 6.3 x 5.0 cm. Neoplastic disease will need to be excluded. 2. No evidence of a bowel obstruction or free air. No pericolonic inflammation. No evidence of appendicitis. 3. Small bilateral pleural effusions. Small amount of ascites. 4. A few small pulmonary nodules are noted in the right lower lobe measuring up to 3 mm in size. This can be followed up according to the revised Fleischner criteria. 5. Distended and thick-walled urinary bladder, for which correlation with urinalysis is advised. 6. Additional findings are detailed above. This document has been electronically signed by: Raudel Amin M.D. on 02/07/2025 04:23:42
[2025-02-07 00:11] VITALS: BP 139/58; PULSE 64; RESP 18; TEMP 36.6; O2SAT 98; BMI 27.9
--- OUTSIDE RECORDS SUMMARY | 2025-02-07 00:34 | XMS_ITS | Encounter Summary ---
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 Social History Tobacco [...] AM EST Encounter for other general examination prison (current) use of 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 PATHOLOGIST REVIEW BLOOD SMEAR Routine 01/17/2025 6:19 AM EST 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 CBC WITH AUTO DIFFERENTIAL Routine 01/17/2025 6:19 AM EST Encounter for other general examination prison (current) use of 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 PROTHROMBIN TIME WITH INR Routine 01/17/2025 6:19 AM EST Encounter for other general examination prison (current) use of 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 CBC AND DIFFERENTIAL Routine 01/17/2025 6:19 AM EST Encounter for other general examination prison (current) use of 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 MAGNESIUM Routine 01/17/2025 6:19 AM EST 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 01/19/2025 1:27 PM EST [facility] Blood Venous blood specimen / Unknown Venipuncture / Unknown 01/17/2025 6:19 AM EST 01/17/2025 12:22 PM EST us Bonilla Sosa MD LAB BLOOD ORDERABLES Final Res ult [facility] [address] [place] [address], [place] [phone] * (ABNORMAL) Manual differential (01/17/2025 6:19 AM EST) Neutrophils % 36.0 % LAB HEMETOLOGY METHOD 01/17/2025 5:20 PM [facility] Bands % 4.0 % LAB HEMETOLOGY METHOD 01/17/2025 5:20 PM [facility] Lymphocytes % 23.0 % LAB HEMETOLOGY METHOD 01/17/2025 5:20 PM [facility] Reactive Lymphocyte 2.00 % LAB HEMETOLOGY METHOD 01/17/2025 5:20 PM [facility] Monocytes % 32.0 % LAB HEMETOLOGY METHOD 01/17/2025 5:20 PM [facility] Eosinophils % 1.0 % LAB HEMETOLOGY METHOD 01/17/2025 5:20 PM [facility] Basophils % 0.0 % LAB HEMETOLOGY METHOD 01/17/2025 5:20 PM [facility] Metamyelocytes % 1.0(H) % LAB HEMETOLOGY METHOD 01/17/2025 5:20 PM [facility] Myelocytes % 1.0(H) % LAB HEMETOLOGY METHOD 01/17/2025 5:20 PM [facility] Neutrophils Absolute Manual 2.56 1.50 - 7.00 K/mcL LAB HEMETOLOGY METHOD 01/17/2025 5:20 PM [facility] Bands Absolute Manual 0.28(H) 0.00 - 0.00 K/mcL LAB HEMETOLOGY METHOD 01/17/2025 5:20 PM [facility] Lymphocytes Absolute 1.63 1.00 - 5.00 K/mcL LAB HEMETOLOGY METHOD 01/17/2025 5:20 PM [facility] Reactive Lymph Abs Manual 0.14(H) 0.00 - 0.00 lym LAB HEMETOLOGY METHOD 01/17/2025 5:20 PM EST [facility] Monocytes Absolute Manual 2.27(H) 0.20 - 1.00 K/mcL LAB HEMETOLOGY METHOD 01/17/2025 5:20 PM EST [facility] Eosinophils Absolute Manual 0.07 0.00 - 0.50 K/mcL LAB HEMETOLOGY METHOD 01/17/2025 5:20 PM EST [facility] Basophils Absolute Manual 0.00 0.00 - 0.20 K/[facility] LAB HEMETOLOGY METHOD 01/17/2025 5:20 PM EST [facility] Metamyelocytes Absolute Manual 0.07(H) 0.00 - 0.00 K/mcL LAB HEMETOLOGY METHOD 01/17/2025 5:20 PM EST [facility] Myelocytes Absolute Manual 0.07(H) 0.00 - 0.00 K/[facility] LAB HEMETOLOGY METHOD 01/17/2025 5:20 PM EST [facility] Blood Venous blood specimen / Unknown Venipuncture / Unknown 01/17/2025 6:19 AM EST 01/17/2025 12:22 PM EST us Bonilla Sosa MD LAB BLOOD ORDERABLES Final Res ult [facility] [address] [place] [address], * (ABNORMAL) CBC auto differential (01/17/2025 6:19 AM EST) WBC 7.1 4.8 - 10.8 K/mcL LAB HEMETOLOGY METHOD 01/17/2025 5:20 PM EST [facility] RBC 2.60(L) 4.50 - 5.50 M/mcL LAB HEMETOLOGY METHOD 01/17/2025 5:20 PM EST [facility] Hemoglobin 7.7(L) 13.5 - 17.5 g/dL LAB HEMETOLOGY METHOD 01/17/2025 5:20 PM EST [facility] Hematocrit 25.2(L) 42.0 - 54.0 % LAB HEMETOLOGY METHOD 01/17/2025 5:20 PM [facility] MCV 96.9 79.0 - 98.0 FL LAB HEMETOLOGY METHOD 01/17/2025 5:20 PM EST [facility] MCH 29.6 27.0 - 32.0 pcg LAB HEMETOLOGY METHOD 01/17/2025 5:20 PM [facility] MCHC 30.6(L) 32.0 - 37.0 g/dL LAB HEMETOLOGY METHOD 01/17/2025 5:20 PM [facility] RDW 24.7(H) 11.0 - 15.0 % LAB HEMETOLOGY METHOD 01/17/2025 5:20 PM [facility] Platelets 120(L) 130 - 400 K/mcL LAB HEMETOLOGY METHOD 01/17/2025 5:20 PM [facility] MPV 11.9(H) 7.0 - 11.0 FL LAB HEMETOLOGY METHOD 01/17/2025 5:20 PM [facility] NRBC 0.0 <1.0 % LAB HEMETOLOGY METHOD 01/17/2025 5:20 PM [facility] NRBC Absolute 0.00 <0.10 K/mcL LAB HEMETOLOGY METHOD 01/17/2025 5:20 PM [facility] Blood Venous blood specimen / Unknown Venipuncture / Unknown 01/17/2025 6:19 AM EST 01/17/2025 12:22 PM EST us Bonilla Sosa MD LAB BLOOD ORDERABLES Final Res ult [facility] [address] [place] [address], [place] [phone] * (ABNORMAL) Prothrombin time with INR (01/17/2025 6:19 AM EST) [facility] Protime 29.7(H) 10.6 - 13.9 sec LAB COAGULATION METHOD 01/17/2025 1:26 PM EST [facility] INR 2.4 LAB COAGULATION METHOD 01/17/2025 1:26 PM EST [facility] Blood Venous blood specimen / Unknown Venipuncture / Unknown 01/17/2025 6:19 AM EST 01/17/2025 12:22 PM EST Bonilla Sosa MD LAB BLOOD ORDERABLES Final Res ult Performing Organization Address City/[facility]/ZIP Co de Phone Number [facility] [address] [place] [address], [place] [phone] * Magnesium (01/17/2025 6:19 AM EST) [facility] Magnesium 2.2 1.9 - 2.6 mg/dL LAB CHEMISTRY METHOD 01/17/2025 1:53 PM EST [facility] Blood Venous blood specimen / Unknown Venipuncture / Unknown 01/17/2025 6:19 AM EST 01/17/2025 12:22 PM EST Bonilla Sosa MD LAB BLOOD ORDERABLES Final Res ult [facility] [address] [place] [address], [place] [phone] * (ABNORMAL) Comprehensive metabolic panel (01/17/2025 6:19 AM EST) [facility] Sodium 137 133 - 145 mmol/L LAB CHEMISTRY METHOD 01/17/2025 1:53 PM EST [facility] Potassium 3.9 3.5 - 5.5 mmol/L LAB CHEMISTRY METHOD 01/17/2025 1:53 PM [facility] Chloride 103 96 - 110 mmol/L LAB CHEMISTRY METHOD 01/17/2025 1:53 PM [facility] CO2 32 21 - 32 mmol/L LAB CHEMISTRY METHOD 01/17/2025 1:53 PM [facility] Anion Gap 2(L) 3 - 11 LAB CHEMISTRY METHOD 01/17/2025 1:53 PM [facility] Glucose 77 70 - 100 mg/dL LAB CHEMISTRY METHOD 01/17/2025 1:53 PM [facility] BUN 22 5 - 25 mg/dL LAB CHEMISTRY METHOD 01/17/2025 1:53 PM [facility] Creatinine 0.89 0.70 - 1.30 mg/dL LAB CHEMISTRY METHOD 01/17/2025 1:53 PM [facility] eGFR 82 >=60 mL/min/1. 73m2 LAB CHEMISTRY METHOD 01/17/2025 1:53 PM [facility] Comment:Calculation based on the??Chronic Kidney Disease Epidemiology Collaboration (CKD-EPI) equation refit??without adjustment for race. BUN/Creatinine Ratio 24.7 LAB CHEMISTRY METHOD 01/17/2025 1:53 PM [facility] Calcium 8.2(L) 8.5 - 10.5 mg/dL LAB CHEMISTRY METHOD 01/17/2025 1:53 PM [facility] AST (SGOT) 26 10 - 42 unit/L LAB CHEMISTRY METHOD 01/17/2025 1:53 PM [facility] ALT (SGPT) 23 10 - 60 unit/L LAB CHEMISTRY METHOD 01/17/2025 1:53 PM [facility] Alkaline Phosphatase 59 42 - 121 unit/L LAB CHEMISTRY METHOD 01/17/2025 1:53 PM [facility] Total Protein 7.2 6.0 - 8.0 g/dL LAB CHEMISTRY METHOD 01/17/2025 1:53 PM EST [facility] Albumin 2.9(L) 3.2 - 5.0 g/dL LAB CHEMISTRY METHOD 01/17/2025 1:53 PM EST [facility] Total Bilirubin 0.8 0.0 - 1.4 mg/dL LAB CHEMISTRY METHOD 01/17/2025 1:53 PM EST [facility] Blood Venous blood specimen / Unknown Venipuncture / Unknown 01/17/2025 6:19 AM EST 01/17/2025 12:22 PM EST us Bonilla Sosa MD LAB BLOOD ORDERABLES Final Res ult [facility] [address] [place] [address], [place] [phone] documented in this encounter Visit Diagnoses Diagnosis Encounter for other general examination prison (current) use of 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 Long-term (current) use of 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 documented in this encounter Care Teams Bowling Alley Floors Installer Relationship Specialty Start Date End Date Milton Durán MD [address] [place] [address] [place] [address] PCP - General 02/03/18 documented as of this encounter
[2025-02-07 00:36] LABS: Basophils Percent Auto 0.4 % (0-2); Eosinophils Percent Auto 0.9 % (0-4); Hematocrit 26.2 % (42.0-52.0); Hemoglobin 8.6 g/dl (14.0-18.0); Imm Gran Abs Auto 0.01 X10*3/uL (0.00-0.03); Imm Gran Pct Auto 0.2 % (0.0-0.4); Lymphocytes Absolute Auto 1.8 X10*3/uL (1.2-4.9); Lymphocytes Percent Auto 39.2 % (20-40); MANUAL DIFF FLAG SCAN; Mean Corpuscular HGB Conc 32.8 g/dl (31.0-36.0); Mean Corpuscular Volume 94.6 fL (80.0-98.0); Mean Platelet Volume 10.7 fL (9.4-12.4); Monocytes Absolute Auto 1.7 X10*3/uL (0.1-1.2); Monocytes Percent Auto 36.3 % (2-11); NRBC Pct Auto 0.4 /100WBC (0.0-0.2); Neutrophils Absolute Auto 1.1 x10*3/uL (2.0-8.3); Platelet Count 159 X10*3/uL (160-400); Red Blood Count 2.77 X10*6/uL (4.60-5.80); Red Cell Distribution Width 24.4 % (11.0-16.0); SCAN SMEAR FLAG 1; White Blood Count 4.6 X10*3/uL (4.8-10.8)
[2025-02-07 00:51] LABS: Alanine Aminotransferase 13 U/L (0-40); Albumin Level 3.6 g/dL (3.5-5.0); Alkaline Phosphatase 62 U/L (39-117); Anion Gap 11 (12-20); Aspartate Amino Transferase 29 U/L (5-37); Bilirubin Direct 0.5 mg/dL (0.0-0.5); Bilirubin Total 1.2 mg/dL (0.0-1.0); Blood Urea Nitrogen 15 mg/dL (9-16); Calcium 8.5 mg/dL (8.4-10.2); Carbon Dioxide 27 mmol/L (22-29); Chloride 108 mmol/L (96-108); Creatinine Clr Calc Pharmacy 88.6; Estimated Glomerular Filt Rate > 60; Glucose Random 100 mg/dL (60-115); Lipase 24 U/L (8-78); Sodium 142 mmol/L (135-145); Total Protein 7.1 g/dL (6.5-8.0)
[2025-02-07 00:55] LABS: SLIDE REVIEW VERIFIED
[2025-02-07] MEDS: iohexoL 350 MG/ML 100 ML INFUS..BTL 85 ML IV (01:59)
[2025-02-07] MEDS: 0.9 % Sodium Chloride 1,000 ML 999 ML IV (02:04)
--- NOTE | 2025-02-07 03:02 | ED.ABDPAIN ---
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 The abdominal discomfort is across the lower abdomen, becoming severe at times. Associated abdominal distention, diarrhea with a excessive flatulence. Denies nausea, vomiting, fever or sick contacts with similar symptoms. Following the patient's hospital admission for Guillain-[place] syndrome, he was discharged to a rehab facility, he returned home January 23. Denies recent travel out of the country or use of antibiotics. Related Data Home Medications ?Medication ?Instructions ?Recorded ?Confirmed acebutolol 200 mg capsule 200 mg PO BEDTIME 04/17/21 01/10/25 acebutolol 200 mg capsule 400 mg PO DAILY 04/17/21 01/10/25 doxazosin 4 mg tablet 4 mg PO DAILY 04/17/21 01/10/25 finasteride 5 mg tablet 5 mg PO BEDTIME 04/17/21 01/10/25 warfarin 4 mg tablet 4 mg PO DAILY@1800 11/02/21 01/10/25 Previous Rx's ?Medication ?Instructions ?Recorded benzonatate 200 mg capsule 200 mg PO TID PRN cough #14 caps 10/12/22 albuterol sulfate 90 mcg/actuation 2 puff inhalation Q6H PRN 01/05/25 aerosol inhaler shortness of breath or wheezing #8.5 grams furosemide 40 mg tablet 40 mg PO DAILY #30 tabs 01/16/25 lisinopril 20 mg tablet 20 mg PO DAILY #30 tabs 01/16/25 Allergies Allergy/AdvReac Type Severity Reaction Status Date / Time adhesive [ADHESIVE] Allergy Intermediate RASH, Verified 02/07/25 00:15 BLISTERS atenolol [Atenolol] Allergy Mild RASH Verified 02/07/25 00:15 sotalol [Sotalol] Allergy Mild RASH Verified 02/07/25 00:15 atorvastatin [From Lipitor] AdvReac Mild SEVERE Verified 02/07/25 00:15 ACHES AND PAINS Review of Systems Review of Systems Yes all other systems are reviewed and are negative Constitutional: Denies fatigue and Denies fever(s) Cardiovascular: Denies chest pain and Denies dyspnea Respiratory: Denies cough and Denies dyspnea Gastrointestinal: Reports abdominal pain, Reports excessive flatus, Reports diarrhea, Denies nausea and Denies vomiting Endocrine: Denies fatigue PMFSH Past Medical History Attestation statement: The following information was validated with the patient. Medical History Atrial fibrillation HTN (hypertension) Surgical History History of cholecystectomy Aortic valve replaced Social History Social History Household Members: Spouse Housing: House Do you presently have visiting nurse or other home services: No Alcohol intake: never Comment: refused bed alarm Patient Tobacco Use Status: Never used Tobacco Advance Directives: No Advance Directives Information Provided: Yes service: No Current occupational status: retired Physical Exam ED Vital Signs: Vital Signs - 24 hr 02/07/25 00:11 02/07/25 04:57 Temperature 97.8 F 98.0 F Pulse Rate 64 53 Respiratory Rate 18 18 Blood Pressure 139/58 L 148/61 H Pulse Oximetry 98 96 Oxygen Delivery Method Room Air Room Air BMI result Body Mass Index 27.9 Const Other: Alert well-appearing Orientation/consciousness: patient oriented x3 Resp Effort & Inspection: normal respiratory effort Cardio Other: Normal peripheral perfusion GI Other: Abdomen is soft, mildly distended, moderate tenderness to palpation across entire lower abdomen with mild voluntary guarding, most prominent over left side of lower abdomen Skin Other: Warm dry no rash Neuro General: patient oriented x3, gait normal, no focal motor deficits and CN's II-XI intact bilaterally Psych Other: Cooperative Course Course Course Narrative: Signed out to the night team pending CT of the abdomen and final disposition Medical Decision Making Medical Decision Making MDM Narrative: 89-year-old male with a history hypertension, 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 The abdominal discomfort is across the lower abdomen, becoming severe at times. Associated abdominal distention, diarrhea with a excessive flatulence. Denies nausea, vomiting, fever or sick contacts with similar symptoms. Following the patient's hospital admission for Guillain-Cross [place] syndrome, he was discharged to a rehab facility, he returned home January 23. Denies recent travel out of the country or use of antibiotics. Problem: Recent hospitalization History: Per patient I have considered the following differential diagnoses: Traveler's diarrhea, C diff, diverticulitis, viral gastroenteritis Plan: The patient could have viral gastroenteritis given such illness has been prevalent within the community. His abdominal pain seems to be most focal to the left lower abdomen, this could be diverticulitis. We will be obtaining a CT scan, giving IV fluid. The patient declines analgesia. The patient technically has risk factors for traveler's diarrhea, he states he was traveling out of the country for the month of December, I would think if he was going to develop traveler's diarrhea he would have done so sooner rather than now. He also has technical risk for C diff. After his admission for Guillain-Cross River, he went to rehab until January 23. However, he has yet to have a bowel movement here while in the emergency department, if he had C diff, his symptoms would be excessive. Furthermore, labs that were obtained from triage are overall normal, without a significant leukocytosis. I have independently reviewed the following tests: Labs: CT abdomen and pelvis: No acute abdominal findings patient does have hematoma on left hip which is chronic from Coumadin use will discharge patient home on dicyclomine Lab Data 02/07/25 00:29 02/07/25 00:29 Labs: Lab Results 02/07/25 Range/Units 00:29 WBC 4.6 L (4.8-10.8) X10*3/uL RBC 2.77 L (4.60-5.80) X10*6/uL Hgb 8.6 L (14.0-18.0) g/dl Hct 26.2 L (42.0-52.0) % MCV 94.6 (80.0-98.0) fL MCH 31.0 (27.0-33.0) pg MCHC 32.8 (31.0-36.0) g/dl RDW 24.4 H (11.0-16.0) % Plt Count 159 L (160-400) X10*3/uL MPV 10.7 (9.4-12.4) fL Immature Gran % (Auto) 0.2 (0.0-0.4) % Neut % (Auto) 23.0 L (45-73) % Lymph % (Auto) 39.2 (20-40) % Otero % (Auto) 36.3 H (2-11) % Eos % (Auto) 0.9 (0-4) % Baso % (Auto) 0.4 (0-2) % Lymph # (Auto) 1.8 (1.2-4.9) X10*3/uL Otero # (Auto) 1.7 H (0.1-1.2) X10*3/uL Eos # (Auto) 0.0 (0.0-0.4) X10*3/uL Baso # (Auto) 0.0 (0.0-0.2) X10*3/uL Abs Immat Gran (auto) 0.01 (0.00-0.03) X10*3/uL Absolute Neuts (auto) 1.1 L (2.0-8.3) x10*3/uL Absolute Nucleated RBC 0.020 H (0.0-0.012) X10*3/uL Nucleated RBC % (auto) 0.4 H (0.0-0.2) /100WBC Smear Tech's Comments VERIFIED Sodium 142 (135-145) mmol/L Potassium 4.0 (3.3-5.1) mmol/L Chloride 108 (96-108) mmol/L Carbon Dioxide 27 (22-29) mmol/L Anion Gap 11 L (12-20) BUN 15 (9-16) mg/dL Creatinine 0.73 (0.5-1.4) mg/dL Estim Creat Clear Calc 88.6 Estimated GFR > 60 Random Glucose 100 (60-115) mg/dL Calcium 8.5 (8.4-10.2) mg/dL Total Bilirubin 1.2 H (0.0-1.0) mg/dL Direct Bilirubin 0.5 (0.0-0.5) mg/dL AST 29 (5-37) U/L ALT 13 (0-40) U/L Alkaline Phosphatase 62 (39-117) U/L Total Protein 7.1 (6.5-8.0) g/dL Albumin 3.6 (3.5-5.0) g/dL Lipase 24 (8-78) U/L Medications Administered Discontinued Medications Generic Name Dose Route Start Last Admin Trade Name Freq PRN Reason Stop Dose Admin Sodium Chloride 1,000 mls @ 999 mls/hr 02/07/25 02:00 02/07/25 03:37 Ns IV 02/07/25 03:00 Infused .Q1H1M CHINO Infusion Iohexol 85 ml 02/07/25 01:59 02/07/25 01:59 Iohexol 350 Mg/Ml 100 Ml Infus..Btl IV 02/07/25 02:00 85 ml ONCE ONE Administration Discharge Plan Discharge Clinical Impression: Abdominal pain, Diarrhea Patient Disposition: Still a Patient Prescriptions: No Action doxazosin 4 mg tablet 4 mg PO DAILY acebutolol 200 mg capsule 400 mg PO DAILY finasteride 5 mg tablet 5 mg PO BEDTIME acebutolol 200 mg capsule 200 mg PO BEDTIME warfarin 4 mg tablet 4 mg PO DAILY@1800 benzonatate 200 mg capsule 200 mg PO TID PRN (Reason: cough) Qty: 14 0RF furosemide 40 mg tablet 40 mg PO DAILY Qty: 30 0RF lisinopril 20 mg tablet 20 mg PO DAILY Qty: 30 0RF albuterol sulfate 90 mcg/actuation HFA aerosol inhaler 2 puff inhalation Q6H PRN (Reason: shortness of breath or wheezing) Qty: 8.5 0RF Print Language: Malay
[2025-02-07 04:57] VITALS: BP 148/61; PULSE 53; RESP 18; TEMP 36.7; O2SAT 96
[2025-02-07] MEDS: Dicyclomine HCl 10 MG CAPSULE 20 MG PO (05:14)
[2025-02-07 05:45] VITALS: BP 148/61; PULSE 53; RESP 18; TEMP 36.7; O2SAT 96
== END 2025-02-07 05:49 | disposition home or self-care (01) ==
PROVIDERS: Emergency Provider Internal Medicine; PCP Family Medicine
DX: R10.30 Lower abdominal pain, unspecified (principal); R19.7 Diarrhea, unspecified; I10 Essential (primary) hypertension; I48.91 Unspecified atrial fibrillation; Z79.01 Long term (current) use of 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; Z95.2 Presence of prosthetic heart valve; Z79.899 Other long term (current) drug therapy
CPT/HCPCS: 36415; 74177; 80053; 80076; 82248; 83690; 85025; 96360; 96361; 99284; Q9967

== ENCOUNTER → 2025-02-07 01:30 | Outpatient (BNV) | payer MEDICARE, OTHER, SELFPAY | PROVIDERS: Emergency Provider Internal Medicine; PCP Family Medicine; Visit Provider Radiology Diagnostic Radiology | DX: R10.9 Unspecified abdominal pain (principal); R19.7 Diarrhea, unspecified | CPT/HCPCS: 74177 ==

== ENCOUNTER 2025-02-15 10:20 | Outpatient (REF) | payer MEDICARE, OTHER, SELFPAY ==
[2025-02-15 11:59] LABS: Basophils Percent Auto 0.6 % (0-2); Eosinophils Percent Auto 0.8 % (0-4); Hematocrit 29.3 % (42.0-52.0); Hemoglobin 9.5 g/dl (14.0-18.0); Imm Gran Abs Auto 0.02 X10*3/uL (0.00-0.03); Imm Gran Pct Auto 0.4 % (0.0-0.4); Lymphocytes Absolute Auto 2.2 X10*3/uL (1.2-4.9); Lymphocytes Percent Auto 44.3 % (20-40); MANUAL DIFF FLAG SCAN; Mean Corpuscular HGB Conc 32.4 g/dl (31.0-36.0); Mean Corpuscular Hemoglobin 30.6 pg (27.0-33.0); Mean Corpuscular Volume 94.5 fL (80.0-98.0); Mean Platelet Volume 11.7 fL (9.4-12.4); Monocytes Absolute Auto 1.8 X10*3/uL (0.1-1.2); Monocytes Percent Auto 35.8 % (2-11); Neutrophils Absolute Auto 0.9 x10*3/uL (2.0-8.3); Neutrophils Percent Auto 18.1 % (45-73); Platelet Count 161 X10*3/uL (160-400); SCAN SMEAR FLAG 1
[2025-02-15 12:31] LABS: Erythrocyte Sedimentation Rate 22 MM/HR (0-15)
[2025-02-15 12:48] LABS: Alanine Aminotransferase 17 U/L (0-40); Alkaline Phosphatase 68 U/L (39-117); Anion Gap 12 (12-20); Aspartate Amino Transferase 32 U/L (5-37); Bilirubin Total 0.9 mg/dL (0.0-1.0); Blood Urea Nitrogen 17 mg/dL (9-16); Carbon Dioxide 30 mmol/L (22-29); Chloride 102 mmol/L (96-108); Estimated Glomerular Filt Rate > 60; Glucose Random 90 mg/dL (60-115); Iron 64 mcg/dL (45-160); Percent Iron Saturation 24 % (15-50); Potassium 4.2 mmol/L (3.3-5.1); Sodium 140 mmol/L (135-145); Total Iron Binding Capacity 267 mcg/dL (228-428); Total Protein 7.6 g/dL (6.5-8.0); Unsaturated Iron Binding 203 ug/dL
[2025-02-15 13:03] LABS: SLIDE REVIEW VERIFIED
[2025-02-15 13:11] LABS: Ferritin 386 ng/mL (20-250); Folate 9.8 ng/mL (> or = 4.0); Vitamin B12 751 pg/mL (200-900)
== END 2025-02-15 10:21 | disposition home or self-care (01) ==
LOC: HO.LAB 10:20
PROVIDERS: PCP Family Medicine; Visit Provider Family Medicine
DX: R60.1 Generalized edema (principal); D64.9 Anemia, unspecified
CPT/HCPCS: 36415; 80053; 82607; 82728; 82746; 83540; 85025; 85652

== ENCOUNTER → 2025-02-17 08:38 | Outpatient (REF) | payer MEDICARE, OTHER, SELFPAY ==
--- NOTE | 2025-02-17 08:41 | CA_ITS ---
Transthoracic Echocardiogram Patient (Last, First, Middle): Keegan Fagan, Gender: Male Date of : 1935 Age: 89 Procedure Date: 02/17/2025 Procedure Type: Transthoracic Echocardiogram Location: OP Height: 195.58 cm Weight: 109.77 kg BSA: 2.43 m2 Heart Rate: 54 bpm BP: 148 / 61 mmHg Pipe Caulker: SB Referring MD: Milton Durán MD [employer] Operator: Aaron Monzon MD Symptoms: R60.1 GENERALIZED EDEMA R/O CHF Study Quality: Technically Difficult/unable to turn to left side ECG Rhythm: Atrial Fibrillation Conclusions: - 1. Normal LV ejection fraction 55-60% with mild LVH with restrictive filling on mitral inflow 2. Mildly to moderately reduced RV systolic function 3. Mildly to moderately dilated left atrium 4. Normally functioning mechanical prosthesis in aortic position 5. Dxtm-vx-xawhjdts elevation right ventricular systolic pressure with mildly elevated right atrial pressures Findings Left Ventricle Normal left ventricular size and systolic function. There is mildly increased left ventricular wall thickness. The visually estimated ejection fraction is between 55-60%. There is paradoxical septal motion consistent with post operative status. Diastolic function is indeterminate on the basis of available data. Spectral Doppler is indicative of a restrictive filling pattern. There is moderate septal asymmetric hypertrophy. Right Ventricle Normal right ventricular cavity size. There is mild to moderately decreased right ventricular systolic function. Atria The left atrium is mildly dilated. There is lipomatous hypertrophy of the interatrial septum. There is no evidence of interatrial shunt. The right atrium is likely dilated. Aortic Valve A mechanical prosthetic aortic valve is present. The prosthetic aortic valve appears to be functioning normally. The mean gradient is 9 mmHg. There is no aortic valve regurgitation. the valve is well seated without abnormal rocking motion Mitral Valve There is mild anterior and posterior mitral leaflet thickening. There is mild mitral annular calcification. There is mild mitral valve regurgitation. There is no mitral valve stenosis. Pulmonic Valve The pulmonic valve is likely normal. There is mild to moderate pulmonic valve regurgitation. Tricuspid Valve Normal tricuspid valve structure. There is mild tricuspid valve regurgitation. The right ventricular systolic pressure is 48 mmHg. Mildly elevated right atrial pressure. Mild to moderate pulmonary hypertension is present. Great Vessels The aorta was not well visualized. The pulmonary artery was not well visualized. Venous The inferior vena cava is mildly dilated and collapses greater than 50% with inspiration. Pericardium/Pleural The pericardium was not well visualized. Prior Study Comparison no prior study in the last 5 years for comparison Measurements 2D Linear Measurements IVSd: 1.52 0.6-0.9/0.6-1.0 cm LVIDd: 5.58 3.9-5.3/4.2-5.9 cm LVIDd Index: 2.30 2.4-3.2/2.2-3.1 cm/m2 LVIDs: 4.13 2.0-3.6 cm LVPWd: 1.30 0.7-1.1 cm LA Diam: 4.90 2.7-3.8/3.0-4.0 cm LAIDs Index: 2.02 1.5-2.3 cm/m2 LV Mass: 435.72 67-162/88-224 g LV Mass Index: 179.31 43-95/49-115 g/m2 LVOT Diam: 2.40 3.0+(-)1.3 cm 2D Systolic Function EF 4C: 57.00 >55% EF 2C: 61.70 >55% EF BiP: 59.60 >55% Mitral Valve MV Pk E: 1.04 MV PK A: 0.14 MV Decel Time: 227.00 E/A: 7.40 E'Lateral: 11.60 E'Medial: 7.62 E/E' Med: 13.60 E/E' Lat: 9.00 Aortic Valve AoV Pk Alok: 2.05 AoV Mn Alok: 1.38 AoV VTI: 0.41 AoV Pk Grad: 17.00 Aov Mn Grad: 9.00 EDITH Cont.VTI: 1.91 LVOT LVOT Pk Alok: 0.74 LVOT Mn Alok: 0.50 LVOT VTI: 0.17 LVOT Pk Grad: 2.00 LVOT Mn Grad: 1.00 LVOT Diam: 2.40 LVOT Area: 4.52 Diastolic Function MV Pk E: 1.04 MV Pk A: 0.14 E/A: 7.40 E'Medial: 7.62 E/E' Med: 13.60 E' Laterial: 11.60 E/E' Lat: 9.00 Right Ventricle TAPSE (mm): 15.30 TVS' Alok: 5.98 Tricuspid Valve TR Pk Alok: 2.95 TR Pk Grad: 40.00 RA Press: 8.00 RVSP: 48.00 Great Vessels Aorta Sinus of Valsalva: 3.10 2.0-3.5 cm Ao Asc: 3.60 2.1-3.4 cm Ao Arch: 2.90 Pulmonary Valve PV Pk Alok: 1.14 Peak PV Grad: 5.00 DC Pk Alok: 2.46 Updated in Other Vendor System with Status of Final Aaron Monzon MD electronically signed on 02/18/2025 9:39:44 AM with status of Final
--- OUTSIDE RECORDS SUMMARY | 2025-02-17 08:58 | XMS_ITS | Patient Health Record ---
[facility] Address [address] [place] [address] Care Team Providers Care Software Business Analyst Name Role Phone Luis Armando YANG, Milton Primary Care Provider UnavailFady Mcfarland Unavailable [phone] Allergies Allergen (clinical drug ingredient) Drug/Non Drug [...] Problem Acquired hammer toe of right foot (1242380615172 105) Other hammer toe(s) (acquired), right foot (M20.41) Active confirmed Problem Acquired hammer toe of left foot ([id number] 103) Other hammer toe(s) (acquired), left foot [...] Medicare [employer] [address] [place] [address] [id number] Keegan Fagan Jr Self - patient is the insured [employer] ([facility]) [address] [place] [address] [phone] [id number] Keegan Fagan Jr Self - patient is the insured Medical (General) History Medical History History ICD Code Arthritis Back,Hip,and Knee pain Gall bladder problems Heart disease High blood pressure Scarlet fever Measles Mumps Chicken pox Surgical History Surgery Date(Month/Year) Right eye surgery 195 gall bladder 2003 heart surgery unspecified 2000 Hospitalization History Reason Date(Month/Year) [facility]pneumonia 1 week 10/2021
--- OUTSIDE RECORDS SUMMARY | 2025-02-17 08:58 | XMS_ITS | Encounter Summary ---
Author Organization [facility] Address [address] [place] [address] Care Team Providers Care Sales Project Engineer Name Role Phone Milton Durán MD Primary Care Provider [phone] Encounter Details Date Type Department Care Team (Latest Contact Info) Description 01/17/2025 Lab Requisition [facility] - Main Lab [address] [facility] [place] [address] Bonilla Sosa MD [address] [place] [address] Encounter for other general examination; roasterman (current) use of 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 Social History Tobacco [...] AM EST Encounter for other general examination USP (current) use of 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 PATHOLOGIST REVIEW BLOOD SMEAR Routine 01/17/2025 6:19 AM EST Encounter for other general examination roasterman (current) use of 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 CBC WITH AUTO DIFFERENTIAL Routine 01/17/2025 6:19 AM EST Encounter for other general examination USP (current) use of 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 PROTHROMBIN TIME WITH INR Routine 01/17/2025 6:19 AM EST Encounter for other general examination USP (current) use of 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 CBC AND DIFFERENTIAL Routine 01/17/2025 6:19 AM EST Encounter for other general examination USP (current) use of 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 MAGNESIUM Routine 01/17/2025 6:19 AM EST Encounter for other general examination roasterman (current) use of 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 COMPREHENSIVE METABOLIC PANEL Routine 01/17/2025 6:19 AM EST Encounter for other general examination roasterman (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 01/19/2025 1:[address] [facility] Blood Venous blood specimen / Unknown Venipuncture / Unknown 01/17/2025 6:19 AM EST 01/17/2025 12:22 PM EST us Bonilla Sosa MD LAB BLOOD ORDERABLES Final Res ult [facility] [address] [place] [address], [place] [phone] * (ABNORMAL) Manual differential (01/17/2025 6:19 AM EST) Neutrophils % 36.0 % LAB HEMETOLOGY METHOD 01/17/2025 5:20 PM [facility] Bands % 4.0 % LAB HEMETOLOGY METHOD 01/17/2025 5:20 PM [facility] Lymphocytes % 23.0 % LAB HEMETOLOGY METHOD 01/17/2025 5:20 PM [facility] Reactive Lymphocyte 2.00 % LAB HEMETOLOGY METHOD 01/17/2025 5:20 PM [facility] Monocytes % 32.0 % LAB HEMETOLOGY METHOD 01/17/2025 5:20 PM [facility] Eosinophils % 1.0 % LAB HEMETOLOGY METHOD 01/17/2025 5:20 PM [facility] Basophils % 0.0 % LAB HEMETOLOGY METHOD 01/17/2025 5:20 PM [facility] Metamyelocytes % 1.0(H) % LAB HEMETOLOGY METHOD 01/17/2025 5:20 PM [facility] Myelocytes % 1.0(H) % LAB HEMETOLOGY METHOD 01/17/2025 5:20 PM [facility] Neutrophils Absolute Manual 2.56 1.50 - 7.00 K/mcL LAB HEMETOLOGY METHOD 01/17/2025 5:20 PM [facility] Bands Absolute Manual 0.28(H) 0.00 - 0.00 K/mcL LAB HEMETOLOGY METHOD 01/17/2025 5:20 PM [facility] Lymphocytes Absolute 1.63 1.00 - 5.00 K/mcL LAB HEMETOLOGY METHOD 01/17/2025 5:20 PM [facility] Reactive Lymph Abs Manual 0.14(H) 0.00 - 0.00 lym LAB HEMETOLOGY METHOD 01/17/2025 5:[address] [facility] Monocytes Absolute Manual 2.27(H) 0.20 - 1.00 K/mcL LAB HEMETOLOGY METHOD 01/17/2025 5:[address] [facility] Eosinophils Absolute Manual 0.07 0.00 - 0.50 K/mcL LAB HEMETOLOGY METHOD 01/17/2025 5:[address] [facility] Basophils Absolute Manual 0.00 0.00 - 0.20 K/[facility] LAB HEMETOLOGY METHOD 01/17/2025 5:[address] [facility] Metamyelocytes Absolute Manual 0.07(H) 0.00 - 0.00 K/mcL LAB HEMETOLOGY METHOD 01/17/2025 5:[address] [facility] Myelocytes Absolute Manual 0.07(H) 0.00 - 0.00 K/[facility] LAB HEMETOLOGY METHOD 01/17/2025 5:[address] [facility] Blood Venous blood specimen / Unknown Venipuncture / Unknown 01/17/2025 6:19 AM EST 01/17/2025 12:22 PM EST us Bonilla Sosa MD LAB BLOOD ORDERABLES Final Res ult [facility] [address] [place] [address], * (ABNORMAL) CBC auto differential (01/17/2025 6:19 AM EST) WBC 7.1 4.8 - 10.8 K/mcL LAB HEMETOLOGY METHOD 01/17/2025 5:[address] [facility] RBC 2.60(L) 4.50 - 5.50 M/mcL LAB HEMETOLOGY METHOD 01/17/2025 5:[address] [facility] Hemoglobin 7.7(L) 13.5 - 17.5 g/dL LAB HEMETOLOGY METHOD 01/17/2025 5:[address] [facility] Hematocrit 25.2(L) 42.0 - 54.0 % LAB HEMETOLOGY METHOD 01/17/2025 5:20 PM [facility] MCV 96.9 79.0 - 98.0 FL LAB HEMETOLOGY METHOD 01/17/2025 5:[address] [facility] MCH 29.6 27.0 - 32.0 pcg LAB HEMETOLOGY METHOD 01/17/2025 5:20 PM [facility] MCHC 30.6(L) 32.0 - 37.0 g/dL LAB HEMETOLOGY METHOD 01/17/2025 5:20 PM [facility] RDW 24.7(H) 11.0 - 15.0 % LAB HEMETOLOGY METHOD 01/17/2025 5:20 PM [facility] Platelets 120(L) 130 - 400 K/mcL LAB HEMETOLOGY METHOD 01/17/2025 5:20 PM [facility] MPV 11.9(H) 7.0 - 11.0 FL LAB HEMETOLOGY METHOD 01/17/2025 5:20 PM [facility] NRBC 0.0 <1.0 % LAB HEMETOLOGY METHOD 01/17/2025 5:20 PM [facility] NRBC Absolute 0.00 <0.10 K/mcL LAB HEMETOLOGY METHOD 01/17/2025 5:20 PM [facility] Blood Venous blood specimen / Unknown Venipuncture / Unknown 01/17/2025 6:19 AM EST 01/17/2025 12:22 PM EST us Bonilla Sosa MD LAB BLOOD ORDERABLES Final Res ult [facility] [address] [place] [address], [place] [phone] * (ABNORMAL) Prothrombin time with INR (01/17/2025 6:19 AM EST) [facility] Protime 29.7(H) 10.6 - 13.9 sec LAB COAGULATION METHOD 01/17/2025 1:[address] [facility] INR 2.4 LAB COAGULATION METHOD 01/17/2025 1:[address] [facility] Blood Venous blood specimen / Unknown Venipuncture / Unknown 01/17/2025 6:19 AM EST 01/17/2025 12:22 PM EST Bonilla Sosa MD LAB BLOOD ORDERABLES Final Res ult Performing Organization Address City/[facility]/ZIP Co de Phone Number [facility] [address] [place] [address], [place] [phone] * Magnesium (01/17/2025 6:19 AM EST) [facility] Magnesium 2.2 1.9 - 2.6 mg/dL LAB CHEMISTRY METHOD 01/17/2025 1:[address] [facility] Blood Venous blood specimen / Unknown Venipuncture / Unknown 01/17/2025 6:19 AM EST 01/17/2025 12:22 PM EST Bonilla Sosa MD LAB BLOOD ORDERABLES Final Res ult [facility] [address] [place] [address], [place] [phone] * (ABNORMAL) Comprehensive metabolic panel (01/17/2025 6:19 AM EST) [facility] Sodium 137 133 - 145 mmol/L LAB CHEMISTRY METHOD 01/17/2025 1:[address] [facility] Potassium 3.9 3.5 - 5.5 mmol/L LAB CHEMISTRY METHOD 01/17/2025 1:53 PM [facility] Chloride 103 96 - 110 mmol/L LAB CHEMISTRY METHOD 01/17/2025 1:53 PM [facility] CO2 32 21 - 32 mmol/L LAB CHEMISTRY METHOD 01/17/2025 1:53 PM [facility] Anion Gap 2(L) 3 - 11 LAB CHEMISTRY METHOD 01/17/2025 1:53 PM [facility] Glucose 77 70 - 100 mg/dL LAB CHEMISTRY METHOD 01/17/2025 1:53 PM [facility] BUN 22 5 - 25 mg/dL LAB CHEMISTRY METHOD 01/17/2025 1:53 PM [facility] Creatinine 0.89 0.70 - 1.30 mg/dL LAB CHEMISTRY METHOD 01/17/2025 1:53 PM [facility] eGFR 82 >=60 mL/min/1. 73m2 LAB CHEMISTRY METHOD 01/17/2025 1:53 PM [facility] Comment:Calculation based on the??Chronic Kidney Disease Epidemiology Collaboration (CKD-EPI) equation refit??without adjustment for race. BUN/Creatinine Ratio 24.7 LAB CHEMISTRY METHOD 01/17/2025 1:53 PM [facility] Calcium 8.2(L) 8.5 - 10.5 mg/dL LAB CHEMISTRY METHOD 01/17/2025 1:53 PM [facility] AST (SGOT) 26 10 - 42 unit/L LAB CHEMISTRY METHOD 01/17/2025 1:53 PM [facility] ALT (SGPT) 23 10 - 60 unit/L LAB CHEMISTRY METHOD 01/17/2025 1:53 PM [facility] Alkaline Phosphatase 59 42 - 121 unit/L LAB CHEMISTRY METHOD 01/17/2025 1:53 PM [facility] Total Protein 7.2 6.0 - 8.0 g/dL LAB CHEMISTRY METHOD 01/17/2025 1:[address] [facility] Albumin 2.9(L) 3.2 - 5.0 g/dL LAB CHEMISTRY METHOD 01/17/2025 1:[address] [facility] Total Bilirubin 0.8 0.0 - 1.4 mg/dL LAB CHEMISTRY METHOD 01/17/2025 1:[address] [facility] Blood Venous blood specimen / Unknown Venipuncture / Unknown 01/17/2025 6:19 AM EST 01/17/2025 12:22 PM EST us Bonilla Sosa MD LAB BLOOD ORDERABLES Final Res ult [facility] [address] [place] [address], [place] [phone] documented in this encounter Visit Diagnoses Diagnosis Encounter for other general examination USP (current) use of 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 Long-term (current) use of 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 documented in this encounter Care Teams Sales Project Engineer Relationship Specialty Start Date End Date Milton Durán MD [address] [place] [address] [place] [address] PCP - General 02/03/18 documented as of this encounter
--- OUTSIDE RECORDS SUMMARY | 2025-02-17 08:58 | XMS_ITS | Clinical Summary ---
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 REVIEW BLOOD SMEAR Routine 01/17/2025 6:19 AM EST 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 CBC WITH AUTO DIFFERENTIAL Routine 01/17/2025 6:19 AM EST Encounter for other general examination MCFP (current) use of 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 PROTHROMBIN TIME WITH INR Routine 01/17/2025 6:19 AM EST 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 MAGNESIUM Routine 01/17/2025 6:19 AM EST Encounter for other general examination MCFP (current) use of 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 CBC AND DIFFERENTIAL Routine 01/17/2025 6:19 AM EST 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 COMPREHENSIVE METABOLIC PANEL Routine 01/17/2025 6:19 AM EST Encounter for other general examination MCFP (current) use of 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 from Last 3 Months Results * (ABNORMAL) Manual differential (01/17/2025 6:19 AM EST) Neutrophils % 36.0 % LAB HEMETOLOGY METHOD 01/17/2025 5:20 PM [facility] Bands % 4.0 % LAB HEMETOLOGY METHOD 01/17/2025 5:20 PM [facility] Lymphocytes % 23.0 % LAB HEMETOLOGY METHOD 01/17/2025 5:20 PM [facility] Reactive Lymphocyte 2.00 % LAB HEMETOLOGY METHOD 01/17/2025 5:20 PM [facility] Monocytes % 32.0 % LAB HEMETOLOGY METHOD 01/17/2025 5:20 PM [facility] Eosinophils % 1.0 % LAB HEMETOLOGY METHOD 01/17/2025 5:20 PM [facility] Basophils % 0.0 % LAB HEMETOLOGY METHOD 01/17/2025 5:20 PM [facility] Metamyelocytes % 1.0(H) % LAB HEMETOLOGY METHOD 01/17/2025 5:20 PM [facility] Myelocytes % 1.0(H) % LAB HEMETOLOGY METHOD 01/17/2025 5:20 PM [facility] Neutrophils Absolute Manual 2.56 1.50 - 7.00 K/mcL LAB HEMETOLOGY METHOD 01/17/2025 5:20 PM [facility] Bands Absolute Manual 0.28(H) 0.00 - 0.00 K/mcL LAB HEMETOLOGY METHOD 01/17/2025 5:20 PM [facility] Lymphocytes Absolute 1.63 1.00 - 5.00 K/mcL LAB HEMETOLOGY METHOD 01/17/2025 5:20 PM [facility] Reactive Lymph Abs Manual 0.14(H) 0.00 - 0.00 lym LAB HEMETOLOGY METHOD 01/17/2025 5:20 PM [facility] Monocytes Absolute Manual 2.27(H) 0.20 - 1.00 K/mcL LAB HEMETOLOGY METHOD 01/17/2025 5:20 PM [facility] Eosinophils Absolute Manual 0.07 0.00 - 0.50 K/mcL LAB HEMETOLOGY METHOD 01/17/2025 5:20 PM [facility] Basophils Absolute Manual 0.00 0.00 - 0.20 K/mcL LAB HEMETOLOGY METHOD 01/17/2025 5:20 PM [facility] Metamyelocytes Absolute Manual 0.07(H) 0.00 - 0.00 K/mcL LAB HEMETOLOGY METHOD 01/17/2025 5:20 PM [facility] Myelocytes Absolute Manual 0.07(H) 0.00 - 0.00 K/mcL LAB HEMETOLOGY METHOD 01/17/2025 5:20 PM EST [facility] Blood Venous blood specimen / Unknown Venipuncture / Unknown 01/17/2025 6:19 AM EST 01/17/2025 12:22 PM EST us Bonilla Sosa MD LAB BLOOD ORDERABLES Final Res ult [facility] [address] [place] [address], [place] [phone] * Pathology review, blood smear (01/17/2025 6:19 [...] should be considered. 01/19/2025 1:27 PM EST [facility] Blood Venous blood specimen / Unknown Venipuncture / Unknown 01/17/2025 6:19 AM EST 01/17/2025 12:22 PM EST us Bonilla Sosa MD LAB BLOOD ORDERABLES Final Res ult [facility] [address] [place] [address], [place] [phone] * (ABNORMAL) CBC auto differential (01/17/2025 6:19 AM EST) WBC 7.1 4.8 - 10.8 K/mcL LAB HEMETOLOGY METHOD 01/17/2025 5:20 PM [facility] RBC 2.60(L) 4.50 - 5.50 M/mcL LAB HEMETOLOGY METHOD 01/17/2025 5:20 PM [facility] Hemoglobin 7.7(L) 13.5 - 17.5 g/dL LAB HEMETOLOGY METHOD 01/17/2025 5:20 PM [facility] Hematocrit 25.2(L) 42.0 - 54.0 % LAB HEMETOLOGY METHOD 01/17/2025 5:20 PM [facility] MCV 96.9 79.0 - 98.0 FL LAB HEMETOLOGY METHOD 01/17/2025 5:20 PM [facility] MCH 29.6 27.0 - 32.0 pcg LAB HEMETOLOGY METHOD 01/17/2025 5:20 PM [facility] MCHC 30.6(L) 32.0 - 37.0 g/dL LAB HEMETOLOGY METHOD 01/17/2025 5:20 PM [facility] RDW 24.7(H) 11.0 - 15.0 % LAB HEMETOLOGY METHOD 01/17/2025 5:20 PM [facility] Platelets 120(L) 130 - 400 K/mcL LAB HEMETOLOGY METHOD 01/17/2025 5:20 PM [facility] MPV 11.9(H) 7.0 - 11.0 FL LAB HEMETOLOGY METHOD 01/17/2025 5:20 PM [facility] NRBC 0.0 <1.0 % LAB HEMETOLOGY METHOD 01/17/2025 5:20 PM [facility] NRBC Absolute 0.00 <0.10 K/mcL LAB HEMETOLOGY METHOD 01/17/2025 5:20 PM [facility] Blood Venous blood specimen / Unknown Venipuncture / Unknown 01/17/2025 6:19 AM EST 01/17/2025 12:22 PM EST Bonilla Sosa MD LAB BLOOD ORDERABLES Final Res ult Performing Organization Address City/[facility]/ZIP Co de Phone Number [facility] [address] [place] [address], [place] [phone] * (ABNORMAL) Prothrombin time with INR (01/17/2025 6:19 AM EST) Protime 29.7(H) 10.6 - 13.9 sec LAB COAGULATION METHOD 01/17/2025 1:26 PM EST [facility] INR 2.4 LAB COAGULATION METHOD 01/17/2025 1:26 PM EST [facility] Blood Venous blood specimen / Unknown Venipuncture / Unknown 01/17/2025 6:19 AM EST 01/17/2025 12:22 PM EST Bonilla Sosa MD LAB BLOOD ORDERABLES Final Res ult Performing Organization Address [facility] Co de Phone Number [facility] [address] [place] [address], [place] [phone] * Magnesium (01/17/2025 6:19 AM EST) Magnesium 2.2 1.9 - 2.6 mg/dL LAB CHEMISTRY METHOD 01/17/2025 1:53 PM EST [facility] Blood Venous blood specimen / Unknown Venipuncture / Unknown 01/17/2025 6:19 AM EST 01/17/2025 12:22 PM EST Bonilla Sosa MD LAB BLOOD ORDERABLES Final Res ult Performing Organization Address City/[facility]/ZIP Co de Phone Number [facility] [address] [place] [address], * (ABNORMAL) Comprehensive metabolic panel (01/17/2025 6:19 AM EST) Sodium 137 133 - 145 mmol/L LAB CHEMISTRY METHOD 01/17/2025 1:53 PM [facility] Potassium 3.9 3.5 - 5.5 mmol/L LAB CHEMISTRY METHOD 01/17/2025 1:53 PM [facility] Chloride 103 96 - 110 mmol/L LAB CHEMISTRY METHOD 01/17/2025 1:53 PM [facility] CO2 32 21 - 32 mmol/L LAB CHEMISTRY METHOD 01/17/2025 1:53 PM [facility] Anion Gap 2(L) 3 - 11 LAB CHEMISTRY METHOD 01/17/2025 1:53 PM [facility] Glucose 77 70 - 100 mg/dL LAB CHEMISTRY METHOD 01/17/2025 1:53 PM [facility] BUN 22 5 - 25 mg/dL LAB CHEMISTRY METHOD 01/17/2025 1:53 PM [facility] Creatinine 0.89 0.70 - 1.30 mg/dL LAB CHEMISTRY METHOD 01/17/2025 1:53 PM [facility] eGFR 82 >=60 mL/min/1. 73m2 LAB CHEMISTRY METHOD 01/17/2025 1:53 PM [facility] Comment:Calculation based on the??Chronic Kidney Disease Epidemiology Collaboration (CKD-EPI) equation refit??without adjustment for race. BUN/Creatinine Ratio 24.7 LAB CHEMISTRY METHOD 01/17/2025 1:53 PM [facility] Calcium 8.2(L) 8.5 - 10.5 mg/dL LAB CHEMISTRY METHOD 01/17/2025 1:53 PM [facility] AST (SGOT) 26 10 - 42 unit/L LAB CHEMISTRY METHOD 01/17/2025 1:53 PM [facility] ALT (SGPT) 23 10 - 60 unit/L LAB CHEMISTRY METHOD 01/17/2025 1:53 PM EST [facility] Alkaline Phosphatase 59 42 - 121 unit/L LAB CHEMISTRY METHOD 01/17/2025 1:53 PM [facility] Total Protein 7.2 6.0 - 8.0 g/dL LAB CHEMISTRY METHOD 01/17/2025 1:53 PM EST [facility] Albumin 2.9(L) 3.2 - 5.0 g/dL LAB CHEMISTRY METHOD 01/17/2025 1:53 PM [facility] Total Bilirubin 0.8 0.0 - 1.4 mg/dL LAB CHEMISTRY METHOD 01/17/2025 1:53 PM [facility] Blood Venous blood specimen / Unknown Venipuncture / Unknown 01/17/2025 6:19 AM EST 01/17/2025 12:22 PM EST us Bonilla Sosa MD LAB BLOOD ORDERABLES Final Res ult [facility] [address] [place] [address], from Last 3 Months Insurance MEDICARE Care Teams Plate Former Relationship Specialty Start Date End Date Milton Durán MD [address] [place] [address] [place] [address] PCP - General 02/03/18
== END ==
LOC: HO.CARD 08:38
PROVIDERS: PCP Family Medicine; Visit Provider Family Medicine
DX: R60.1 Generalized edema (principal)
CPT/HCPCS: 93306

== ENCOUNTER → 2025-02-17 08:41 | Outpatient (BNV) | payer MEDICARE, OTHER, SELFPAY | PROVIDERS: PCP Family Medicine; Visit Provider Internal Medicine Cardiovascular Disease | DX: I42.2 Other hypertrophic cardiomyopathy (principal); Z95.2 Presence of prosthetic heart valve; I34.0 Nonrheumatic mitral (valve) insufficiency; I27.20 Pulmonary hypertension, unspecified | CPT/HCPCS: 93306 ==

== ENCOUNTER 2025-03-08 09:32 | Outpatient (REF) | payer MEDICARE, OTHER, SELFPAY ==
--- NOTE | ~2025-03-08 | XR_ITS ---
CLINICAL HISTORY: SHOULDER PAIN 3 view right shoulder Comparison: None Findings: Four films were obtained. No fractures or dislocations. Multiple old appearing right rib fractures. Mild narrowing in the glenohumeral and moderate narrowing in the acromioclavicular joints with degenerative spurring. No erosions. No radiopaque foreign body. Partial visualization of median sternotomy changes. IMPRESSION: No acute fracture or dislocation. This document has been electronically signed by: Deisy Art DO on 03/08/2025 16:56:58
--- NOTE | ~2025-03-08 | XR_ITS ---
CLINICAL HISTORY: HIP PAIN,FALL 2 view, right hip Comparison: None Findings: The bones are intact. Moderate narrowing and degenerative spurring in the acromioclavicular joint. The soft tissues are unremarkable. IMPRESSION: No acute fracture or dislocation. This document has been electronically signed by: Deisy Art DO on 03/08/2025 16:08:32
--- OUTSIDE RECORDS SUMMARY | 2025-03-08 10:45 | XMS_ITS | Patient Health Record ---
[facility] Address [address] [place] [address] Care Team Providers Care Medical Physicist Name Role Phone Luis Armando YANG, Milton Primary Care Provider UnavailFady Mcfarland Unavailable [phone] Allergies Allergen (clinical drug ingredient) Drug/Non Drug [...] Problem Acquired hammer toe of right foot (2356593751043 105) Other hammer toe(s) (acquired), right foot (M20.41) Active confirmed Problem Acquired hammer toe of left foot (5264879622038 103) Other hammer toe(s) (acquired), left foot [...] Medicare [employer] [address] [place] [address] [id number] Keegan Fagan Jr Self - [facility] the [facility] [address] [place] [address] [phone] [id number] Keegan Fagan Jr Self - patient is the insured Medical (General) History Medical History History ICD Code Arthritis Back,Hip,and Knee pain Gall bladder problems Heart disease High blood pressure Scarlet fever Measles Mumps Chicken pox Surgical History Surgery Date(Month/Year) Right eye surgery 195 gall bladder 2003 heart surgery unspecified 2000 Hospital[place] History Reason Date(Month/Year[place] [facility] [place]
--- OUTSIDE RECORDS SUMMARY | 2025-03-08 10:45 | XMS_ITS | Clinical Summary ---
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 Role Phone Milton Durán MD Primary Care Provider [phone] Allergies Active Allergy Reactions Criticality Noted Date [...] Department Care Team Description 01/17/2025 Lab Requisition [facility] - Main Lab [address] [facility] [place] [id number] Bonilla Sosa MD Encounter for other general examination; long-term (current) use of 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 from Last 3 [...] Vaccines (1 of 2) 1985 RSV Immunization Adult Patients (1 - 1-dose 75+ series) 2010 Cholesterol Screening (Lipid Panel) 10/30/2022 Depression Screening 10/30/2022 Falls Risk Assessment 10/30/2022 Medicare Annual Wellness Visit 10/30/2022 Social Influencers of Health Screening 10/30/2022 COVID-19 Vaccine (2 - season) 2024 01/04/2021 Influenza Vaccine (Season Ended) 2025 09/18/2022, 10/04/2021, 08/18/2020, Additional history exists Hypertension/CHF/CAD Annual [...] age to complete this topic Meningococcal B Vaccine Aged Out No l onger eligible based on patient's age to complete [...] EST 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 REVIEW BLOOD SMEAR Routine 01/17/2025 6:19 AM EST Encounter for other general examination long-term (current) use of 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 CBC WITH AUTO DIFFERENTIAL Routine 01/17/2025 6:19 AM EST Encounter for other general examination long-term (current) use of 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 PROTHROMBIN TIME WITH INR Routine 01/17/2025 6:19 AM EST 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 MAGNESIUM Routine 01/17/2025 6:19 AM EST Encounter for other general examination long-term (current) use of 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 CBC AND DIFFERENTIAL Routine 01/17/2025 6:19 AM EST Encounter for other general examination long-term (current) use of 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 COMPREHENSIVE METABOLIC PANEL Routine 01/17/2025 6:19 AM EST 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 from Last 3 Months Results * (ABNORMAL) Manual differential (01/17/2025 6:19 AM EST) Neutrophils % 36.0 % LAB HEMETOLOGY METHOD 01/17/2025 5:20 PM [facility] Bands % 4.0 % LAB HEMETOLOGY METHOD 01/17/2025 5:20 PM [facility] Lymphocytes % 23.0 % LAB HEMETOLOGY METHOD 01/17/2025 5:20 PM [facility] Reactive Lymphocyte 2.00 % LAB HEMETOLOGY METHOD 01/17/2025 5:20 PM [facility] Monocytes % 32.0 % LAB HEMETOLOGY METHOD 01/17/2025 5:20 PM [facility] Eosinophils % 1.0 % LAB HEMETOLOGY METHOD 01/17/2025 5:20 PM [facility] Basophils % 0.0 % LAB HEMETOLOGY METHOD 01/17/2025 5:20 PM [facility] Metamyelocytes % 1.0(H) % LAB HEMETOLOGY METHOD 01/17/2025 5:20 PM [facility] Myelocytes % 1.0(H) % LAB HEMETOLOGY METHOD 01/17/2025 5:20 PM [facility] Neutrophils Absolute Manual 2.56 1.50 - 7.00 K/mcL LAB HEMETOLOGY METHOD 01/17/2025 5:20 PM [facility] Bands Absolute Manual 0.28(H) 0.00 - 0.00 K/mcL LAB HEMETOLOGY METHOD 01/17/2025 5:20 PM [facility] Lymphocytes Absolute 1.63 1.00 - 5.00 K/mcL LAB HEMETOLOGY METHOD 01/17/2025 5:20 PM [facility] Reactive Lymph Abs Manual 0.14(H) 0.00 - 0.00 lym LAB HEMETOLOGY METHOD 01/17/2025 5:20 PM [facility] Monocytes Absolute Manual 2.27(H) 0.20 - 1.00 K/mcL LAB HEMETOLOGY METHOD 01/17/2025 5:20 PM [facility] Eosinophils Absolute Manual 0.07 0.00 - 0.50 K/mcL LAB HEMETOLOGY METHOD 01/17/2025 5:20 PM [facility] Basophils Absolute Manual 0.00 0.00 - 0.20 K/mcL LAB HEMETOLOGY METHOD 01/17/2025 5:20 PM [facility] Metamyelocytes Absolute Manual 0.07(H) 0.00 - 0.00 K/mcL LAB HEMETOLOGY METHOD 01/17/2025 5:20 PM [facility] Myelocytes Absolute Manual 0.07(H) 0.00 - 0.00 K/mcL LAB HEMETOLOGY METHOD 01/17/2025 5:20 PM EST [facility] Blood Venous blood specimen / Unknown Venipuncture / Unknown 01/17/2025 6:19 AM EST 01/17/2025 12:22 PM EST Bonilla Sosa MD LAB BLOOD ORDERABLES Final Res ult [facility] [address] [place] [address], [place] [phone] * Pathology review, blood smear (01/17/2025 6:19 [...] should be considered. 01/19/2025 1:27 PM EST [facility] Blood Venous blood specimen / Unknown Venipuncture / Unknown 01/17/2025 6:19 AM EST 01/17/2025 12:22 PM EST us Bonilla Sosa MD LAB BLOOD ORDERABLES Final Res ult [facility] [address] [place] [address], [place] [phone] * (ABNORMAL) CBC auto differential (01/17/2025 6:19 AM EST) WBC 7.1 4.8 - 10.8 K/[facility] LAB HEMETOLOGY METHOD 01/17/2025 5:20 PM [facility] RBC 2.60(L) 4.50 - 5.50 M/mcL LAB HEMETOLOGY METHOD 01/17/2025 5:20 PM [facility] Hemoglobin 7.7(L) 13.5 - 17.5 g/dL LAB HEMETOLOGY METHOD 01/17/2025 5:20 PM [facility] Hematocrit 25.2(L) 42.0 - 54.0 % LAB HEMETOLOGY METHOD 01/17/2025 5:20 PM [facility] MCV 96.9 79.0 - 98.0 FL LAB HEMETOLOGY METHOD 01/17/2025 5:20 PM [facility] MCH 29.6 27.0 - 32.0 pcg LAB HEMETOLOGY METHOD 01/17/2025 5:20 PM [facility] MCHC 30.6(L) 32.0 - 37.0 g/dL LAB HEMETOLOGY METHOD 01/17/2025 5:20 PM [facility] RDW 24.7(H) 11.0 - 15.0 % LAB HEMETOLOGY METHOD 01/17/2025 5:20 PM [facility] Platelets 120(L) 130 - 400 K/mcL LAB HEMETOLOGY METHOD 01/17/2025 5:20 PM [facility] MPV 11.9(H) 7.0 - 11.0 FL LAB HEMETOLOGY METHOD 01/17/2025 5:20 PM [facility] NRBC 0.0 <1.0 % LAB HEMETOLOGY METHOD 01/17/2025 5:20 PM [facility] NRBC Absolute 0.00 <0.10 K/mcL LAB HEMETOLOGY METHOD 01/17/2025 5:20 PM [facility] Blood Venous blood specimen / Unknown Venipuncture / Unknown 01/17/2025 6:19 AM EST 01/17/2025 12:22 PM EST Bonilla Sosa MD LAB BLOOD ORDERABLES Final Res ult Performing Organization Address [facility]/ZIP Co de Phone Number [facility] [address] [place] [address], [place] [phone] * (ABNORMAL) Prothrombin time with INR (01/17/2025 6:19 AM EST) Protime 29.7(H) 10.6 - 13.9 sec LAB COAGULATION METHOD 01/17/2025 1:26 PM EST [facility] INR 2.4 LAB COAGULATION METHOD 01/17/2025 1:26 PM EST [facility] Blood Venous blood specimen / Unknown Venipuncture / Unknown 01/17/2025 6:19 AM EST 01/17/2025 12:22 PM EST Bonilla Sosa MD LAB BLOOD ORDERABLES Final Res ult Performing Organization Address [facility] Co de Phone Number [facility] [address] [place] [address], [place] [phone] * Magnesium (01/17/2025 6:19 AM EST) Magnesium 2.2 1.9 - 2.6 mg/dL LAB CHEMISTRY METHOD 01/17/2025 1:53 PM EST [facility] Blood Venous blood specimen / Unknown Venipuncture / Unknown 01/17/2025 6:19 AM EST 01/17/2025 12:22 PM EST Bonilla Sosa MD LAB BLOOD ORDERABLES Final Res ult [facility] [address] [place] [address], [place] [phone] * (ABNORMAL) Comprehensive metabolic panel (01/17/2025 6:19 AM EST) Sodium 137 133 - 145 mmol/L LAB CHEMISTRY METHOD 01/17/2025 1:53 PM [facility] Potassium 3.9 3.5 - 5.5 mmol/L LAB CHEMISTRY METHOD 01/17/2025 1:53 PM [facility] Chloride 103 96 - 110 mmol/L LAB CHEMISTRY METHOD 01/17/2025 1:53 PM [facility] CO2 32 21 - 32 mmol/L LAB CHEMISTRY METHOD 01/17/2025 1:53 PM [facility] Anion Gap 2(L) 3 - 11 LAB CHEMISTRY METHOD 01/17/2025 1:53 PM [facility] Glucose 77 70 - 100 mg/dL LAB CHEMISTRY METHOD 01/17/2025 1:53 PM [facility] BUN 22 5 - 25 mg/dL LAB CHEMISTRY METHOD 01/17/2025 1:53 PM [facility] Creatinine 0.89 0.70 - 1.30 mg/dL LAB CHEMISTRY METHOD 01/17/2025 1:53 PM [facility] eGFR 82 >=60 mL/min/1. 73m2 LAB CHEMISTRY METHOD 01/17/2025 1:53 PM [facility] Comment:Calculation based on the??Chronic Kidney Disease Epidemiology Collaboration (CKD-EPI) equation refit??without adjustment for race. BUN/Creatinine Ratio 24.7 LAB CHEMISTRY METHOD 01/17/2025 1:53 PM [facility] Calcium 8.2(L) 8.5 - 10.5 mg/dL LAB CHEMISTRY METHOD 01/17/2025 1:53 PM [facility] AST (SGOT) 26 10 - 42 unit/L LAB CHEMISTRY METHOD 01/17/2025 1:53 PM [facility] ALT (SGPT) 23 10 - 60 unit/L LAB CHEMISTRY METHOD 01/17/2025 1:53 PM EST [facility] Alkaline Phosphatase 59 42 - 121 unit/L LAB CHEMISTRY METHOD 01/17/2025 1:53 PM [facility] Total Protein 7.2 6.0 - 8.0 g/dL LAB CHEMISTRY METHOD 01/17/2025 1:53 PM EST [facility] Albumin 2.9(L) 3.2 - 5.0 g/dL LAB CHEMISTRY METHOD 01/17/2025 1:53 PM [facility] Total Bilirubin 0.8 0.0 - 1.4 mg/dL LAB CHEMISTRY METHOD 01/17/2025 1:53 PM [facility] Blood Venous blood specimen / Unknown Venipuncture / Unknown 01/17/2025 6:19 AM EST 01/17/2025 12:22 PM EST us Bonilla Sosa MD LAB BLOOD ORDERABLES Final Res ult [facility] [address] [place] [address], from Last 3 Months Insurance MEDICARE Care Teams 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
--- OUTSIDE RECORDS SUMMARY | 2025-03-08 10:45 | XMS_ITS | Encounter Summary ---
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 (current) use of 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 Social History Tobacco [...] AM EST Encounter for other general examination technician terminal and repeater (current) use of 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 PATHOLOGIST REVIEW BLOOD SMEAR Routine 01/17/2025 6:19 AM EST Encounter for other general examination FPC (current) use of 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 CBC WITH AUTO DIFFERENTIAL Routine 01/17/2025 6:19 AM EST Encounter for other general examination technician terminal and repeater (current) use of 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 PROTHROMBIN TIME WITH INR Routine 01/17/2025 6:19 AM EST Encounter for other general examination FPC (current) use of 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 CBC AND DIFFERENTIAL Routine 01/17/2025 6:19 AM EST Encounter for other general examination technician terminal and repeater (current) use of 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 MAGNESIUM Routine 01/17/2025 6:19 AM EST Encounter for other general examination FPC (current) use of 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 COMPREHENSIVE METABOLIC PANEL Routine 01/17/2025 6:19 AM EST Encounter for other general examination technician terminal and repeater (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 01/19/2025 1:27 PM EST [facility] Blood Venous blood specimen / Unknown Venipuncture / Unknown 01/17/2025 6:19 AM EST 01/17/2025 12:22 PM EST us Bonilla Sosa MD LAB BLOOD ORDERABLES Final Res ult [facility] [address] [place] [address], [place] [phone] * (ABNORMAL) Manual differential (01/17/2025 6:19 AM EST) Neutrophils % 36.0 % LAB HEMETOLOGY METHOD 01/17/2025 5:[address] [facility] Bands % 4.0 % LAB HEMETOLOGY METHOD 01/17/2025 5:[address] [facility] Lymphocytes % 23.0 % LAB HEMETOLOGY METHOD 01/17/2025 5:[address] [facility] Reactive Lymphocyte 2.00 % LAB HEMETOLOGY METHOD 01/17/2025 5:[address] [facility] Monocytes % 32.0 % LAB HEMETOLOGY METHOD 01/17/2025 5:[address] [facility] Eosinophils % 1.0 % LAB HEMETOLOGY METHOD 01/17/2025 5:[address] [facility] Basophils % 0.0 % LAB HEMETOLOGY METHOD 01/17/2025 5:[address] [facility] Metamyelocytes % 1.0(H) % LAB HEMETOLOGY METHOD 01/17/2025 5:[address] [facility] Myelocytes % 1.0(H) % LAB HEMETOLOGY METHOD 01/17/2025 5:[address] [facility] Neutrophils Absolute Manual 2.56 1.50 - 7.00 K/mcL LAB HEMETOLOGY METHOD 01/17/2025 5:[address] [facility] Bands Absolute Manual 0.28(H) 0.00 - 0.00 K/mcL LAB HEMETOLOGY METHOD 01/17/2025 5:[address] [facility] Lymphocytes Absolute 1.63 1.00 - 5.00 K/mcL LAB HEMETOLOGY METHOD 01/17/2025 5:[address] [facility] Reactive Lymph Abs Manual 0.14(H) 0.00 - 0.00 lym LAB HEMETOLOGY METHOD 01/17/2025 5:20 PM EST [facility] Monocytes Absolute Manual 2.27(H) 0.20 - 1.00 K/mcL LAB HEMETOLOGY METHOD 01/17/2025 5:20 PM EST [facility] Eosinophils Absolute Manual 0.07 0.00 - 0.50 K/mcL LAB HEMETOLOGY METHOD 01/17/2025 5:20 PM EST [facility] Basophils Absolute Manual 0.00 0.00 - 0.20 K/[facility] LAB HEMETOLOGY METHOD 01/17/2025 5:20 PM EST [facility] Metamyelocytes Absolute Manual 0.07(H) 0.00 - 0.00 K/mcL LAB HEMETOLOGY METHOD 01/17/2025 5:20 PM EST [facility] Myelocytes Absolute Manual 0.07(H) 0.00 - 0.00 K/[facility] LAB HEMETOLOGY METHOD 01/17/2025 5:20 PM EST [facility] Blood Venous blood specimen / Unknown Venipuncture / Unknown 01/17/2025 6:19 AM EST 01/17/2025 12:22 PM EST us Bonilla Sosa MD LAB BLOOD ORDERABLES Final Res ult [facility] [address] [place] [address], * (ABNORMAL) CBC auto differential (01/17/2025 6:19 AM EST) WBC 7.1 4.8 - 10.8 K/mcL LAB HEMETOLOGY METHOD 01/17/2025 5:20 PM EST [facility] RBC 2.60(L) 4.50 - 5.50 M/mcL LAB HEMETOLOGY METHOD 01/17/2025 5:20 PM EST [facility] Hemoglobin 7.7(L) 13.5 - 17.5 g/dL LAB HEMETOLOGY METHOD 01/17/2025 5:20 PM EST [facility] Hematocrit 25.2(L) 42.0 - 54.0 % LAB HEMETOLOGY METHOD 01/17/2025 5:[address] [facility] MCV 96.9 79.0 - 98.0 FL LAB HEMETOLOGY METHOD 01/17/2025 5:20 PM EST [facility] MCH 29.6 27.0 - 32.0 pcg LAB HEMETOLOGY METHOD 01/17/2025 5:[address] [facility] MCHC 30.6(L) 32.0 - 37.0 g/dL LAB HEMETOLOGY METHOD 01/17/2025 5:[address] [facility] RDW 24.7(H) 11.0 - 15.0 % LAB HEMETOLOGY METHOD 01/17/2025 5:[address] [facility] Platelets 120(L) 130 - 400 K/mcL LAB HEMETOLOGY METHOD 01/17/2025 5:[address] [facility] MPV 11.9(H) 7.0 - 11.0 FL LAB HEMETOLOGY METHOD 01/17/2025 5:[address] [facility] NRBC 0.0 <1.0 % LAB HEMETOLOGY METHOD 01/17/2025 5:[address] [facility] NRBC Absolute 0.00 <0.10 K/mcL LAB HEMETOLOGY METHOD 01/17/2025 5:[address] [facility] Blood Venous blood specimen / Unknown Venipuncture / Unknown 01/17/2025 6:19 AM EST 01/17/2025 12:22 PM EST us Bonilla Sosa MD LAB BLOOD ORDERABLES Final Res ult [facility] [address] [place] [address], [place] [phone] * (ABNORMAL) Prothrombin time with INR (01/17/2025 6:19 AM EST) [facility] Protime 29.7(H) 10.6 - 13.9 sec LAB COAGULATION METHOD 01/17/2025 1:26 PM EST [facility] INR 2.4 LAB COAGULATION METHOD 01/17/2025 1:26 PM EST [facility] Blood Venous blood specimen / Unknown Venipuncture / Unknown 01/17/2025 6:19 AM EST 01/17/2025 12:22 PM EST Bonilla Sosa MD LAB BLOOD ORDERABLES Final Res ult Performing Organization Address City/[facility]/ZIP Co de Phone Number [facility] [address] [place] [address], [place] [phone] * Magnesium (01/17/2025 6:19 AM EST) [facility] Magnesium 2.2 1.9 - 2.6 mg/dL LAB CHEMISTRY METHOD 01/17/2025 1:53 PM EST [facility] Blood Venous blood specimen / Unknown Venipuncture / Unknown 01/17/2025 6:19 AM EST 01/17/2025 12:22 PM EST Bonilla Sosa MD LAB BLOOD ORDERABLES Final Res ult [facility] [address] [place] [address], [place] [phone] * (ABNORMAL) Comprehensive metabolic panel (01/17/2025 6:19 AM EST) [facility] Sodium 137 133 - 145 mmol/L LAB CHEMISTRY METHOD 01/17/2025 1:53 PM EST [facility] Potassium 3.9 3.5 - 5.5 mmol/L LAB CHEMISTRY METHOD 01/17/2025 1:[address] [facility] Chloride 103 96 - 110 mmol/L LAB CHEMISTRY METHOD 01/17/2025 1:[address] [facility] CO2 32 21 - 32 mmol/L LAB CHEMISTRY METHOD 01/17/2025 1:[address] [facility] Anion Gap 2(L) 3 - 11 LAB CHEMISTRY METHOD 01/17/2025 1:[address] [facility] Glucose 77 70 - 100 mg/dL LAB CHEMISTRY METHOD 01/17/2025 1:[address] [facility] BUN 22 5 - 25 mg/dL LAB CHEMISTRY METHOD 01/17/2025 1:[address] [facility] Creatinine 0.89 0.70 - 1.30 mg/dL LAB CHEMISTRY METHOD 01/17/2025 1:[address] [facility] eGFR 82 >=60 mL/min/1. 73m2 LAB CHEMISTRY METHOD 01/17/2025 1:[address] [facility] Comment:Calculation based on the??Chronic Kidney Disease Epidemiology Collaboration (CKD-EPI) equation refit??without adjustment for race. BUN/Creatinine Ratio 24.7 LAB CHEMISTRY METHOD 01/17/2025 1:[address] [facility] Calcium 8.2(L) 8.5 - 10.5 mg/dL LAB CHEMISTRY METHOD 01/17/2025 1:[address] [facility] AST (SGOT) 26 10 - 42 unit/L LAB CHEMISTRY METHOD 01/17/2025 1:[address] [facility] ALT (SGPT) 23 10 - 60 unit/L LAB CHEMISTRY METHOD 01/17/2025 1:[address] [facility] Alkaline Phosphatase 59 42 - 121 unit/L LAB CHEMISTRY METHOD 01/17/2025 1:[address] [facility] Total Protein 7.2 6.0 - 8.0 g/dL LAB CHEMISTRY METHOD 01/17/2025 1:53 PM EST [facility] Albumin 2.9(L) 3.2 - 5.0 g/dL LAB CHEMISTRY METHOD 01/17/2025 1:53 PM EST [facility] Total Bilirubin 0.8 0.0 - 1.4 mg/dL LAB CHEMISTRY METHOD 01/17/2025 1:53 PM EST [facility] Blood Venous blood specimen / Unknown Venipuncture / Unknown 01/17/2025 6:19 AM EST 01/17/2025 12:22 PM EST us Bonilla Sosa MD LAB BLOOD ORDERABLES Final Res ult [facility] [address] [place] [address], [place] [phone] documented in this encounter Visit Diagnoses Diagnosis Encounter for other general examination FPC (current) use of 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 Long-term (current) use of 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 documented in this encounter Care Teams Mercury Cell Cleaner Relationship Specialty Start Date End Date Milton Durán MD [address] [place] [address] [place] [address] PCP - General 02/03/18 documented as of this encounter
== END 2025-03-08 09:33 | disposition home or self-care (01) ==
LOC: HO.XRAY 09:32
PROVIDERS: PCP Family Medicine; Visit Provider Family Medicine
DX: M25.511 Pain in right shoulder (principal); M25.551 Pain in right hip; Z91.81 History of falling
CPT/HCPCS: 73030; 73502

== ENCOUNTER → 2025-03-08 09:50 | Outpatient (BNV) | payer MEDICARE, OTHER, SELFPAY | PROVIDERS: PCP Family Medicine; Visit Provider Radiology Diagnostic Radiology | DX: M25.551 Pain in right hip (principal); M25.511 Pain in right shoulder; W19.XXXA Unspecified fall, initial encounter | CPT/HCPCS: 73030; 73502 ==

== ENCOUNTER 2025-03-19 11:20 | Emergency (ER) | payer MEDICARE, OTHER, SELFPAY ==
[2025-03-19] VITALS (8 sets, daily range): BP systolic 109–131; BP diastolic 51–70; PULSE 50–61; RESP 16; TEMP 36.6; O2SAT 96–99; BMI 28.3
--- NOTE | 2025-03-19 11:33 | ECG_ITS ---
Test Reason : NEAR SYCNOPE Blood Pressure : */* mmHG Vent. Rate : 57 BPM Atrial Rate : 55 BPM P-R Int : * ms QRS Dur : 156 ms QT Int : 460 ms P-R-T Axes : 53 -24 58 degrees QTcB Int : 447 ms Atrial fibrillation Intra-ventricular conduction delay Abnormal ECG When compared with ECG of 15-Jan-2025 14:59, No significant change was found Referred By: Aaron Lake Electronically Signed By: MARITO BRANHAM MD
--- NOTE | 2025-03-19 11:38 | ED_ITS ---
HPI - Weakness General Chief complaint: Weakness Stated complaint: DIZZY & SOB DOING LAUNDRY PER EMS Time Seen by Provider: 03/19/25 11:29 Source: patient Mode of arrival: EMS Limitations: no limitations History of Present Illness HPI Narrative: This is a very pleasant 89 years old male presented to the emergency department via ambulance after a near syncopal episode. He states that he was helping his in the laundry he had an episode of lightheadedness sat down, call 911. [place] better at EMS arrival is back to baseline now. Denies any chest pain any true syncope, any vertigo. He has a history of [place] he has a history of aortic valve replacement with mechanical valve anticoagulated with warfarin MD Complaint: generalized weakness Onset (ago): hour(s) (1) Duration: now resolved Location: generalized Migration: none Severity: mild Relieving factors: none Exacerbating factors: none Related Data Home Medications ?Medication ?Instructions ?Recorded ?Confirmed acebutolol 200 mg capsule 200 mg PO BEDTIME 04/17/21 01/10/25 acebutolol 200 mg capsule 400 mg PO DAILY 04/17/21 01/10/25 doxazosin 4 mg tablet 4 mg PO DAILY 04/17/21 01/10/25 finasteride 5 mg tablet 5 mg PO BEDTIME 04/17/21 01/10/25 warfarin 4 mg tablet 4 mg PO DAILY@1800 11/02/21 01/10/25 Previous Rx's ?Medication ?Instructions ?Recorded benzonatate 200 mg capsule 200 mg PO TID PRN cough #14 caps 10/12/22 albuterol sulfate 90 mcg/actuation 2 puff inhalation Q6H PRN 01/05/25 aerosol inhaler shortness of breath or wheezing #8.5 grams furosemide 40 mg tablet 40 mg PO DAILY #30 tabs 01/16/25 lisinopril 20 mg tablet 20 mg PO DAILY #30 tabs 01/16/25 dicyclomine 10 mg capsule 10 mg PO TID PRN abdominal pain 02/07/25 #14 caps Allergies Allergy/AdvReac Type Severity Reaction Status Date / Time adhesive [ADHESIVE] Allergy Intermediate RASH, Verified 03/19/25 11:30 BLISTERS atenolol [Atenolol] Allergy Mild RASH Verified 03/19/25 11:30 sotalol [Sotalol] Allergy Mild RASH Verified 03/19/25 11:30 atorvastatin [From Lipitor] AdvReac Mild SEVERE Verified 03/19/25 11:30 ACHES AND PAINS Review of Systems 2 Constitutional: Constitutional: Reports no additional constitutional complaints Cardiovascular: Cardiovascular: Reports no additional cardiovascular complaints [facility] Past Medical History Attestation statement: The following information was validated with the patient. Medical History Atrial fibrillation HTN (hypertension) Surgical History History of cholecystectomy Aortic valve replaced Social History Social History Household Members: Spouse Housing: House Do you presently have visiting nurse or other home services: No Alcohol intake: never Comment: refused bed alarm Patient Tobacco Use Status: Never used Tobacco Smoked in Last 30 Days: No Use of substances other than those prescribed or required for medical reasons: No Advance Directives: No Advance Directives Information Provided: Yes Do you have a plan to hurt others: No Plan service: No Current occupational status: retired Physical Exam 2 Vital Signs: Vital Signs: Last Vital Signs Pulse 53 03/19/25 13:19 Resp 16 03/19/25 13:19 BP 125/60 03/19/25 13:19 Pulse Ox 96 03/19/25 13:19 O2 Del Method Room Air 03/19/25 11:28 BMI result Body Mass Index 28.3 On examination looks well is not toxic-appearing comfortable in the stretcher Const: General: cooperative Nutritional Appearance: average body habitus Orientation/consciousness: patient oriented x3 HEENT: Head: Yes normal to inspection General nose exam: Normal external nose present Mouth: Normal oral and palatal mucosa present Neck: Neck: Yes normal visual inspection and Yes full ROM Chest: Chest palpation & inspection: normal inspection of the chest Resp: Effort & Inspection: normal respiratory effort Auscultation: clear to auscultation bilaterally Cardio: Jugular venous distension: no JVD Rate: regular rate Rhythm: r egular rhythm GI: Inspection: Yes normal to inspection Palpation (GI): Soft to palpation, not firm and nontender Percussion: Yes normal to percussion Auscultation: normal bowel sounds Skin: General skin exam: no rashes or lesions noted, elasticity normal and turgor normal Neuro: General: patient oriented x3 Cranial nerves: Yes CN's II-XII intact bilaterally Course Reevaluation(s) Reevaluation #1: Re-examined the patient feels much better, at bedside, labs normal anticipate discharge Time: 12:42 Reevaluation #2: Re-examined again remained asymptomatic labs normal anticipate discharge. He was monitored for about 2 hours in the emergency department no arrhythmia seen. Patient did not have syncope but just near-syncope Time: 13:20 Medications Administered Discontinued Medications Generic Name Dose Route Start Last Admin Trade Name Freq PRN Reason Stop Dose Admin Sodium Chloride 1,000 mls @ 999 mls/hr 03/19/25 11:45 03/19/25 12:02 Ns IVCONT 03/19/25 12:45 999 mls/hr .Q1H1M CHINO Administration Lidocaine 1 patch 03/19/25 13:08 03/19/25 13:17 Lidocaine 4 % Patch Adh..Patch TRANSDERMA 03/19/25 13:09 1 patch ONCE ONE Administration Protocol Medical Decision Making Medical Decision Making [facility] Narrative: Patient is here with a near syncopal episode back to the baseline of we will check blood work electrocardiogram Differential Diagnosis Differential Diagnoses: The differential diagnosis associated with the presentation includes Dehydration/cardiac arrhythmia Admission/Observation Consideration of admission/observation: Escalation of care including admission/observation considered Lab Data 03/19/25 11:58 03/19/25 11:58 Labs: Lab Results 03/19/25 Range/Units 11:58 WBC 5.2 (4.8-10.8) X10*3/uL RBC 3.09 L (4.60-5.80) X10*6/uL Hgb 9.5 L (14.0-18.0) g/dl Hct 29.0 L (42.0-52.0) % MCV 93.9 (80.0-98.0) fL MCH 30.7 (27.0-33.0) pg MCHC 32.8 (31.0-36.0) g/dl RDW 23.8 H (11.0-16.0) % Plt Count 153 L (160-400) X10*3/uL MPV 10.8 (9.4-12.4) fL Immature Gran % (Auto) 1.0 H (0.0-0.4) % Neut % (Auto) 29.6 L (45-73) % Lymph % (Auto) 35.4 (20-40) % Garden % (Auto) 32.3 H (2-11) % Eos % (Auto) 1.1 (0-4) % Baso % (Auto) 0.6 (0-2) % Lymph # (Auto) 1.9 (1.2-4.9) X10*3/uL Garden # (Auto) 1.7 H (0.1-1.2) X10*3/uL Eos # (Auto) 0.1 (0.0-0.4) X10*3/uL Baso # (Auto) 0.0 (0.0-0.2) X10*3/uL Abs Immat Gran (auto) 0.05 H (0.00-0.03) X10*3/uL Absolute Neuts (auto) 1.6 L (2.0-8.3) x10*3/uL Absolute Nucleated RBC 0.000 (0.0-0.012) X10*3/uL Nucleated RBC % (auto) 0.0 (0.0-0.2) /100WBC Smear Tech's Comments VERIFIED PT 32.7 H (10.9-12.4) SEC INR 2.8 H (0.9-1.1) Sodium 139 (135-145) mmol/L Potassium 4.1 (3.3-5.1) mmol/L Chloride 104 (96-108) mmol/L Carbon Dioxide 29 (22-29) mmol/L Anion Gap 10 L (12-20) BUN 27 H (9-16) mg/dL Creatinine 0.98 (0.5-1.4) mg/dL Estim Creat Clear Calc 69.9 Estimated GFR > 60 Random Glucose 94 (60-115) mg/dL Calcium 9.0 (8.4-10.2) mg/dL Total Bilirubin 0.8 (0.0-1.0) mg/dL AST 31 (5-37) U/L ALT 15 (0-40) U/L Alkaline Phosphatase 70 (39-117) U/L Troponin I High Sens 21.2 (<3.5-35.0) ng/L Total Protein 7.2 (6.5-8.0) g/dL Albumin 4.0 (3.5-5.0) g/dL Independent Interpretation I performed an independent interpretation of an: EKG (Atrial fibrillation rate [address]-T changes left bundle-branch block old) Discharge Plan Discharge Clinical Impression: Near syncope Patient Disposition: Home, Self-Care Instructions: Near Syncope (ED) Additional Instructions: Follow-up with your primary care physician drink plenty of fluids return to the emergency room if you worse Prescriptions: No Action doxazosin 4 mg tablet 4 mg PO DAILY acebutolol 200 mg capsule 400 mg PO DAILY finasteride 5 mg tablet 5 mg PO BEDTIME acebutolol 200 mg capsule 200 mg PO BEDTIME warfarin 4 mg tablet 4 mg PO DAILY@1800 benzonatate 200 mg capsule 200 mg PO TID PRN (Reason: cough) Qty: 14 0RF furosemide 40 mg tablet 40 mg PO DAILY Qty: 30 0RF lisinopril 20 mg tablet 20 mg PO DAILY Qty: 30 0RF albuterol sulfate 90 mcg/actuation HFA aerosol inhaler 2 puff inhalation Q6H PRN (Reason: shortness of breath or wheezing) Qty: 8.5 0RF dicyclomine 10 mg capsule 10 mg PO TID PRN (Reason: abdominal pain) Qty: 14 0RF Referrals: Milton Durán MD [Primary Care Provider] - 2 days Print Language: Kyrgyz
[2025-03-19] MEDS: 0.9 % Sodium Chloride 1,000 ML 999 ML IVCONT (12:02)
[2025-03-19 12:06] LABS: Basophils Percent Auto 0.6 % (0-2); Eosinophils Absolute Auto 0.1 X10*3/uL (0.0-0.4); Eosinophils Percent Auto 1.1 % (0-4); Hemoglobin 9.5 g/dl (14.0-18.0); Imm Gran Abs Auto 0.05 X10*3/uL (0.00-0.03); Lymphocytes Absolute Auto 1.9 X10*3/uL (1.2-4.9); Lymphocytes Percent Auto 35.4 % (20-40); MANUAL DIFF FLAG SCAN; Mean Corpuscular HGB Conc 32.8 g/dl (31.0-36.0); Mean Corpuscular Hemoglobin 30.7 pg (27.0-33.0); Mean Corpuscular Volume 93.9 fL (80.0-98.0); Mean Platelet Volume 10.8 fL (9.4-12.4); Monocytes Absolute Auto 1.7 X10*3/uL (0.1-1.2); Monocytes Percent Auto 32.3 % (2-11); Neutrophils Absolute Auto 1.6 x10*3/uL (2.0-8.3); Neutrophils Percent Auto 29.6 % (45-73); Platelet Count 153 X10*3/uL (160-400); Red Blood Count 3.09 X10*6/uL (4.60-5.80); Red Cell Distribution Width 23.8 % (11.0-16.0); SCAN SMEAR FLAG 1; White Blood Count 5.2 X10*3/uL (4.8-10.8)
--- OUTSIDE RECORDS SUMMARY | 2025-03-19 12:13 | XMS_ITS | Patient Health Record ---
[facility] Organization [facility] Address [address] [place] [address] Care Team Providers Care Associate Name Role Phone Luis Armando YANG, Milton Primary Care Provider UnavailFady Mcfarland Unavailable [phone] Allergies Allergen (clinical drug ingredient) Drug/Non Drug [...] Problem Acquired hammer toe of right foot (8263691396286 105) Other hammer toe(s) (acquired), right foot (M20.41) Active confirmed Problem Acquired hammer toe of left foot (1201388630631 103) Other hammer toe(s) (acquired), left foot [...] Medicare [employer] [address] [facility] [address] [id number] Keegan Fagan Jr Self - patient is the [facility] [address] [place] [address] [phone] [id number] Keegan Fagan Jr Self - patient is the insured Medical (General) History Medical History History ICD Code Arthritis Back,Hip,and Knee pain Gall bladder problems Heart disease High blood pressure Scarlet fever Measles Mumps Chicken pox Surgical History Surgery Date(Month/Year) Right eye surgery 195 gall bladder 2003 heart surgery unspecified 2000 Hospitalization History Reason Date(Month/Year) [facility]neumonia 1 week 10/2021
--- OUTSIDE RECORDS SUMMARY | 2025-03-19 12:13 | XMS_ITS | Encounter Summary ---
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 Social History [...] AM EST Encounter for other general examination assisted (current) use of 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 PATHOLOGIST REVIEW BLOOD SMEAR Routine 01/17/2025 6:19 AM EST 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 CBC WITH AUTO DIFFERENTIAL Routine 01/17/2025 6:19 AM EST Encounter for other general examination assisted (current) use of 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 PROTHROMBIN TIME WITH INR Routine 01/17/2025 6:19 AM EST Encounter for other general examination assisted (current) use of 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 CBC AND DIFFERENTIAL Routine 01/17/2025 6:19 AM EST Encounter for other general examination assisted (current) use of 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 MAGNESIUM Routine 01/17/2025 6:19 AM EST 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 COMPREHENSIVE METABOLIC PANEL Routine 01/17/2025 6:19 AM EST 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 documented in [...] Res ult [facility] [address] [place] [address], [place] [phone] * (ABNORMAL) Manual differential (01/17/2025 6:19 AM EST) Neutrophils % 36.0 % LAB HEMETOLOGY METHOD 01/17/2025 5:20 PM [facility] Bands % 4.0 % LAB HEMETOLOGY METHOD 01/17/2025 5:20 PM [facility] Lymphocytes % 23.0 % LAB HEMETOLOGY METHOD 01/17/2025 5:20 PM [facility] Reactive Lymphocyte 2.00 % LAB HEMETOLOGY METHOD 01/17/2025 5:20 PM [facility] Monocytes % 32.0 % LAB HEMETOLOGY METHOD 01/17/2025 5:20 PM [facility] Eosinophils % 1.0 % LAB HEMETOLOGY METHOD 01/17/2025 5:20 PM [facility] Basophils % 0.0 % LAB HEMETOLOGY METHOD 01/17/2025 5:20 PM [facility] Metamyelocytes % 1.0(H) % LAB HEMETOLOGY METHOD 01/17/2025 5:20 PM [facility] Myelocytes % 1.0(H) % LAB HEMETOLOGY METHOD 01/17/2025 5:20 PM [facility] Neutrophils Absolute Manual 2.56 1.50 - 7.00 K/mcL LAB HEMETOLOGY METHOD 01/17/2025 5:20 PM [facility] Bands Absolute Manual 0.28(H) 0.00 - 0.00 K/mcL LAB HEMETOLOGY METHOD 01/17/2025 5:20 PM [facility] Lymphocytes Absolute 1.63 1.00 - 5.00 K/mcL LAB HEMETOLOGY METHOD 01/17/2025 5:20 PM [facility] Reactive Lymph Abs Manual [...] Basophils Absolute Manual 0.00 0.00 - 0.20 K/[facility] LAB HEMETOLOGY METHOD 01/17/2025 5:20 PM EST [facility] Metamyelocytes Absolute Manual 0.07(H) 0.00 - 0.00 K/mcL LAB HEMETOLOGY METHOD 01/17/2025 5:20 PM EST [facility] Myelocytes Absolute Manual 0.07(H) 0.00 - 0.00 K/[facility] LAB HEMETOLOGY METHOD 01/17/2025 5:20 PM EST [facility] Blood Venous blood specimen / Unknown Venipuncture / Unknown 01/17/2025 6:19 AM EST 01/17/2025 12:22 PM EST us Bonilla Sosa MD LAB BLOOD ORDERABLES Final Res ult [facility] [address] [place] [address], * (ABNORMAL) CBC auto differential (01/17/2025 6:19 [...] % LAB HEMETOLOGY METHOD 01/17/2025 5:20 PM [facility] MCV 96.9 79.0 - 98.0 FL LAB HEMETOLOGY METHOD 01/17/2025 5:20 PM EST [facility] MCH 29.6 27.0 - 32.0 pcg LAB HEMETOLOGY METHOD 01/17/2025 5:20 PM [facility] MCHC 30.6(L) 32.0 - 37.0 g/dL LAB HEMETOLOGY METHOD 01/17/2025 5:20 PM [facility] RDW 24.7(H) 11.0 - 15.0 % LAB HEMETOLOGY METHOD 01/17/2025 5:20 PM [facility] Platelets 120(L) 130 - 400 K/mcL LAB HEMETOLOGY METHOD 01/17/2025 5:20 PM [facility] MPV 11.9(H) 7.0 - 11.0 FL LAB HEMETOLOGY METHOD 01/17/2025 5:20 PM [facility] NRBC 0.0 <1.0 % LAB HEMETOLOGY METHOD 01/17/2025 5:20 PM [facility] NRBC Absolute 0.00 <0.10 K/mcL LAB HEMETOLOGY METHOD 01/17/2025 5:20 PM [facility] Blood Venous blood specimen / Unknown Venipuncture / Unknown 01/17/2025 6:19 AM EST 01/17/2025 12:22 PM EST us Bonilla Sosa MD LAB BLOOD ORDERABLES Final Res ult [facility] [address] [place] [address], [place] [phone] * (ABNORMAL) Prothrombin time with INR (01/17/2025 6:19 AM EST) [facility] Protime 29.7(H) 10.6 - 13.9 sec LAB COAGULATION METHOD 01/17/2025 1:26 PM EST [facility] INR 2.4 LAB COAGULATION METHOD 01/17/2025 1:26 PM EST [facility] Blood Venous blood specimen / Unknown Venipuncture / Unknown 01/17/2025 6:19 AM EST 01/17/2025 12:22 PM EST Bonilla Sosa MD LAB BLOOD ORDERABLES Final Res ult Performing Organization Address City/[facility]/ZIP Co de Phone Number [facility] [address] [place] [address], [place] [phone] * Magnesium (01/17/2025 6:19 AM EST) [facility] Magnesium 2.2 1.9 - 2.6 mg/dL LAB CHEMISTRY METHOD 01/17/2025 1:53 PM EST [facility] Blood Venous blood specimen / Unknown Venipuncture / Unknown 01/17/2025 6:19 AM EST 01/17/2025 12:22 PM EST Bonilla Sosa MD LAB BLOOD ORDERABLES Final Res ult [facility] [address] [place] [address], [place] [phone] * (ABNORMAL) Comprehensive metabolic panel (01/17/2025 6:19 AM EST) [facility] Sodium 137 133 - 145 mmol/L LAB CHEMISTRY METHOD 01/17/2025 1:53 PM EST [facility] Potassium 3.9 3.5 - 5.5 mmol/L LAB CHEMISTRY METHOD 01/17/2025 1:53 PM [facility] Chloride 103 96 - 110 mmol/L LAB CHEMISTRY METHOD 01/17/2025 1:53 PM [facility] CO2 32 21 - 32 mmol/L LAB CHEMISTRY METHOD 01/17/2025 1:53 PM [facility] Anion Gap 2(L) 3 - 11 LAB CHEMISTRY METHOD 01/17/2025 1:53 PM [facility] Glucose 77 70 - 100 mg/dL LAB CHEMISTRY METHOD 01/17/2025 1:53 PM [facility] BUN 22 5 - 25 mg/dL LAB CHEMISTRY METHOD 01/17/2025 1:53 PM [facility] Creatinine 0.89 0.70 - 1.30 mg/dL LAB CHEMISTRY METHOD 01/17/2025 1:53 PM [facility] eGFR 82 >=60 mL/min/1. 73m2 LAB CHEMISTRY METHOD 01/17/2025 1:53 PM [facility] Comment:Calculation based on the??Chronic Kidney Disease Epidemiology Collaboration (CKD-EPI) equation refit??without adjustment for race. BUN/Creatinine Ratio 24.7 LAB CHEMISTRY METHOD 01/17/2025 1:53 PM [facility] Calcium 8.2(L) 8.5 - 10.5 mg/dL LAB CHEMISTRY METHOD 01/17/2025 1:53 PM [facility] AST (SGOT) 26 10 - 42 unit/L LAB CHEMISTRY METHOD 01/17/2025 1:53 PM [facility] ALT (SGPT) 23 10 - 60 unit/L LAB CHEMISTRY METHOD 01/17/2025 1:53 PM [facility] Alkaline Phosphatase 59 42 - 121 unit/L LAB CHEMISTRY METHOD 01/17/2025 1:53 PM [facility] Total Protein 7.2 6.0 [...] ult [facility] [address] [place] [address], [place] [phone] documented in this encounter Visit Diagnoses Diagnosis Encounter for other general examination assisted (current) use of 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 Long-term (current) use of 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 documented in this encounter Care Teams Nurses Assistant Relationship Specialty Start Date End Date Milton Durán MD [address] [place] [address] [place] [phone] PCP - General 02/03/18 documented as of this encounter
--- OUTSIDE RECORDS SUMMARY | 2025-03-19 12:13 | XMS_ITS | Clinical Summary ---
Author Organization [address] [place] [address] [place] [phone] Phone Care Team Providers Care Tire Stripper Name Role Phone Milton Durán MD Primary Care Provider [phone] Allergies Active Allergy Reactions Criticality Noted Date [...] Problem Noted Date Diagnosed Date Pulmonary hypertension (CMS/HCC V24, CMS/HCC V28 ) 08/20/2024 Overview (09/27/2024): Last Assessment & Plan: From longstanding atrial fibrillation, and heart failure with preserved EF. Hopefully, with more aggressive diuresis, pulmonary arterial systolic pressure should improve. Atrial fibrillation and flutter (CMS/[facility] V24, CM S/[facility] V28) 06/05/2021 Overview (09/27/2024): Atrial fibrillation and flutter Last Assessment & Plan: Does not require rate control medications, has no sign of profound bradycardia. Will continue to monitor clinically. Bicuspid aortic valve 06/05/2021 Overview (09/27/2024): Bicuspid aortic valve Last Assessment & Plan: Status post mechanical AVR. On Coumadin endocarditis prophylaxis. CHF (congestive heart failure) ([facility] V24, [facility] V28) 06/05/2021 Overview (09/27/2024): Last Assessment & Plan: Is small volume overloaded with moderate lower extremity edema and dilated IVC with poor collapse. He is on furosemide 80 mg in the morning. I will add additional 40 mg in the afternoon. Will check BMP, magnesium and BNP. 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 Last 3 [...] Influencers of Health Screening 10/30/2022 COVID-19 Vaccine ( - season) 2024 01/04/2021 Influenza Vaccine (Season [...] general examination long-term (current) use of 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 PATHOLOGIST REVIEW BLOOD SMEAR Routine 01/17/2025 6:19 AM EST Encounter for other general examination long-term (current) use of 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 CBC WITH AUTO DIFFERENTIAL Routine 01/17/2025 6:19 AM EST Encounter for other general examination long-term (current) use of 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 PROTHROMBIN TIME WITH INR Routine 01/17/2025 6:19 AM EST Encounter for other general examination long-term (current) use of 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 MAGNESIUM Routine 01/17/2025 6:19 AM EST 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 CBC AND DIFFERENTIAL Routine 01/17/2025 6:19 AM EST Encounter for other general examination long-term (current) use of 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 COMPREHENSIVE METABOLIC PANEL Routine 01/17/2025 6:19 AM EST 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 Last 3 Months Results * (ABNORMAL) Manual differential (01/17/2025 6:19 AM EST) Neutrophils % 36.0 % LAB HEMETOLOGY METHOD 01/17/2025 5:20 PM [facility] Bands % 4.0 % LAB HEMETOLOGY METHOD 01/17/2025 5:20 PM [facility] Lymphocytes % 23.0 % LAB HEMETOLOGY METHOD 01/17/2025 5:20 PM [facility] Reactive Lymphocyte 2.00 % LAB HEMETOLOGY METHOD 01/17/2025 5:20 PM [facility] Monocytes % 32.0 % LAB HEMETOLOGY METHOD 01/17/2025 5:20 PM [facility] Eosinophils % 1.0 % LAB HEMETOLOGY METHOD 01/17/2025 5:20 PM [facility] Basophils % 0.0 % LAB HEMETOLOGY METHOD 01/17/2025 5:20 PM [facility] Metamyelocytes % 1.0(H) % LAB HEMETOLOGY METHOD 01/17/2025 5:20 PM [facility] Myelocytes % 1.0(H) % LAB HEMETOLOGY METHOD 01/17/2025 5:20 PM [facility] Neutrophils Absolute Manual 2.56 1.50 - 7.00 K/mcL LAB HEMETOLOGY METHOD 01/17/2025 5:20 PM [facility] Bands Absolute Manual 0.28(H) 0.00 - 0.00 K/mcL LAB HEMETOLOGY METHOD 01/17/2025 5:20 PM [facility] Lymphocytes Absolute 1.63 1.00 - 5.00 K/mcL LAB HEMETOLOGY METHOD 01/17/2025 5:20 PM [facility] Reactive Lymph Abs Manual 0.14(H) 0.00 - 0.00 lym LAB HEMETOLOGY METHOD 01/17/2025 5:20 PM [facility] Monocytes Absolute Manual 2.27(H) 0.20 - 1.00 K/mcL LAB HEMETOLOGY METHOD 01/17/2025 5:20 PM [facility] Eosinophils Absolute Manual 0.07 0.00 - 0.50 K/mcL LAB HEMETOLOGY METHOD 01/17/2025 5:20 PM [facility] Basophils Absolute Manual 0.00 0.00 - 0.20 K/mcL LAB HEMETOLOGY METHOD 01/17/2025 5:20 PM [facility] Metamyelocytes Absolute Manual 0.07(H) 0.00 - 0.00 K/mcL LAB HEMETOLOGY METHOD 01/17/2025 5:20 PM EST [facility] Myelocytes Absolute Manual 0.07(H) 0.00 - 0.00 K/[facility] LAB HEMETOLOGY METHOD 01/17/2025 5:20 PM EST [facility] Blood Venous blood specimen / Unknown Venipuncture / Unknown 01/17/2025 6:19 AM EST 01/17/2025 12:22 PM EST us Bonilla Sosa MD LAB BLOOD ORDERABLES Final Res ult Performing Organization Address City/[facility]/ZIP Co de Phone Number [facility] [address] [place] [address], [place] [phone] * Pathology review, blood smear (01/17/2025 6:19 [...] should be considered. 01/19/2025 1:27 PM EST [facility] Blood Venous blood specimen / Unknown Venipuncture / Unknown 01/17/2025 6:19 AM EST 01/17/2025 12:22 PM EST us Bonilla Sosa MD LAB BLOOD ORDERABLES Final Res ult [facility] [address] [place] [address], [place] [phone] * (ABNORMAL) CBC auto differential (01/17/2025 6:19 AM EST) [facility] WBC 7.1 4.8 - 10.8 K/mcL LAB HEMETOLOGY METHOD 01/17/2025 5:20 PM [facility] RBC 2.60(L) 4.50 - 5.50 M/mcL LAB HEMETOLOGY METHOD 01/17/2025 5:20 PM [facility] Hemoglobin 7.7(L) 13.5 - 17.5 g/dL LAB HEMETOLOGY METHOD 01/17/2025 5:20 PM [facility] Hematocrit 25.2(L) 42.0 - 54.0 % LAB HEMETOLOGY METHOD 01/17/2025 5:20 PM [facility] MCV 96.9 79.0 - 98.0 FL LAB HEMETOLOGY METHOD 01/17/2025 5:20 PM [facility] MCH 29.6 27.0 - 32.0 pcg LAB HEMETOLOGY METHOD 01/17/2025 5:20 PM [facility] MCHC 30.6(L) 32.0 - 37.0 g/dL LAB HEMETOLOGY METHOD 01/17/2025 5:20 PM [facility] RDW 24.7(H) 11.0 - 15.0 % LAB HEMETOLOGY METHOD 01/17/2025 5:20 PM [facility] Platelets 120(L) 130 - 400 K/mcL LAB HEMETOLOGY METHOD 01/17/2025 5:20 PM [facility] MPV 11.9(H) 7.0 - 11.0 FL LAB HEMETOLOGY METHOD 01/17/2025 5:20 PM [facility] NRBC 0.0 <1.0 % LAB HEMETOLOGY METHOD 01/17/2025 5:20 PM EST [facility] NRBC Absolute 0.00 <0.10 K/mcL LAB HEMETOLOGY METHOD 01/17/2025 5:20 PM [facility] Blood Venous blood specimen / Unknown Venipuncture / Unknown 01/17/2025 6:19 AM EST 01/17/2025 12:22 PM EST Bonilla Sosa MD LAB BLOOD ORDERABLES Final Res ult Performing Organization Address City/[facility]/ZIP Co de Phone Number [facility] [address] [place] [address], [place] [phone] * (ABNORMAL) Prothrombin time with INR (01/17/2025 6:19 AM EST) Protime 29.7(H) 10.6 - 13.9 sec LAB COAGULATION METHOD 01/17/2025 1:26 PM [facility] INR 2.4 LAB COAGULATION METHOD 01/17/2025 1:26 PM [facility] Blood Venous blood specimen / Unknown Venipuncture / Unknown 01/17/2025 6:19 AM EST 01/17/2025 12:22 PM EST Bonilla Sosa MD LAB BLOOD ORDERABLES Final Res ult Performing Organization Address City/[facility]/ZIP Co de Phone Number [facility] [address] [place] [address], [place] [phone] * Magnesium (01/17/2025 6:19 AM EST) Magnesium 2.2 1.9 - 2.6 mg/dL LAB CHEMISTRY METHOD 01/17/2025 1:53 PM [facility] Blood Venous blood specimen / Unknown Venipuncture / Unknown 01/17/2025 6:19 AM EST 01/17/2025 12:22 PM EST us Bonilla Sosa MD LAB BLOOD ORDERABLES Final Res ult [facility] [address] [place] [address], [place] [phone] * (ABNORMAL) Comprehensive metabolic panel (01/17/2025 6:19 AM EST) Sodium 137 133 - 145 mmol/L LAB CHEMISTRY METHOD 01/17/2025 1:53 PM [facility] Potassium 3.9 3.5 - 5.5 mmol/L LAB CHEMISTRY METHOD 01/17/2025 1:53 PM [facility] Chloride 103 96 - 110 mmol/L LAB CHEMISTRY METHOD 01/17/2025 1:53 PM [facility] CO2 32 21 - 32 mmol/L LAB CHEMISTRY METHOD 01/17/2025 1:53 PM [facility] Anion Gap 2(L) 3 - 11 LAB CHEMISTRY METHOD 01/17/2025 1:53 PM [facility] Glucose 77 70 - 100 mg/dL LAB CHEMISTRY METHOD 01/17/2025 1:53 PM [facility] BUN 22 5 - 25 mg/dL LAB CHEMISTRY METHOD 01/17/2025 1:53 PM [facility] Creatinine 0.89 0.70 - 1.30 mg/dL LAB CHEMISTRY METHOD 01/17/2025 1:53 PM [facility] eGFR 82 >=60 mL/min/1. 73m2 LAB CHEMISTRY METHOD 01/17/2025 1:53 PM [facility] Comment:Calculation based on the??Chronic Kidney Disease Epidemiology Collaboration (CKD-EPI) equation refit??without adjustment for race. BUN/Creatinine Ratio 24.7 LAB CHEMISTRY METHOD 01/17/2025 1:53 PM [facility] Calcium 8.2(L) 8.5 - 10.5 mg/dL LAB CHEMISTRY METHOD 01/17/2025 1:53 PM EST [facility] AST (SGOT) 26 10 - 42 unit/L LAB CHEMISTRY METHOD 01/17/2025 1:53 PM [facility] ALT (SGPT) 23 10 - 60 unit/L LAB CHEMISTRY METHOD 01/17/2025 1:53 PM [facility] Alkaline Phosphatase 59 42 - 121 unit/L LAB CHEMISTRY METHOD 01/17/2025 1:53 PM [facility] Total Protein 7.2 6.0 - 8.0 g/dL LAB CHEMISTRY METHOD 01/17/2025 1:53 PM [facility] Albumin 2.9(L) 3.2 - 5.0 g/dL LAB CHEMISTRY METHOD 01/17/2025 1:53 PM [facility] Total Bilirubin 0.8 0.0 - 1.4 mg/dL LAB CHEMISTRY METHOD 01/17/2025 1:53 PM [facility] Blood Venous blood specimen / Unknown Venipuncture / Unknown 01/17/2025 6:19 AM EST 01/17/2025 12:22 PM EST Bonilla Sosa MD LAB BLOOD ORDERABLES Final Res ult [facility] [address] [place] [address], from Last 3 Months Insurance MEDICARE Care Teams Tire Stripper Relationship Specialty Start Date End Date Milton Durán MD [address] [place] [address] Dr Rubalcava, [place] [address] PCP - General 02/03/18
[2025-03-19 12:14] LABS: INTERNATIONAL NORM RATIO 2.8 (0.9-1.1); Prothrombin Time 32.7 SEC (10.9-12.4)
[2025-03-19 12:22] LABS: SLIDE REVIEW VERIFIED
[2025-03-19 12:28] LABS: Troponin-I High Sensitivity 21.2 ng/L (<3.5-35.0)
[2025-03-19 12:37] LABS: Alanine Aminotransferase 15 U/L (0-40); Anion Gap 10 (12-20); Aspartate Amino Transferase 31 U/L (5-37); Bilirubin Total 0.8 mg/dL (0.0-1.0); Blood Urea Nitrogen 27 mg/dL (9-16); Carbon Dioxide 29 mmol/L (22-29); Chloride 104 mmol/L (96-108); Creatinine Clr Calc Pharmacy 69.9; Estimated Glomerular Filt Rate > 60; Glucose Random 94 mg/dL (60-115); Potassium 4.1 mmol/L (3.3-5.1); Sodium 139 mmol/L (135-145); Total Protein 7.2 g/dL (6.5-8.0)
[2025-03-19 13:13] LABS: Alkaline Phosphatase 70 U/L (39-117)
[2025-03-19] MEDS: Lidocaine 4 % Patch ADH..PATCH 1 PATCH TRANSDERMA (13:17)
== END 2025-03-19 13:57 | disposition home or self-care (01) ==
PROVIDERS: Emergency Provider Emergency Medicine; PCP Family Medicine
DX: R55 Syncope and collapse (principal); I48.91 Unspecified atrial fibrillation; G61.0 Guillain-Barre syndrome; Z79.01 Long term (current) use of 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; Z95.828 Presence of other vascular implants and grafts
CPT/HCPCS: 36415; 80053; 84484; 85025; 85610; 93005; 99283; 99284

== ENCOUNTER → 2025-03-19 11:33 | Outpatient (BNV) | payer MEDICARE, OTHER, SELFPAY | PROVIDERS: Emergency Provider Emergency Medicine; PCP Family Medicine; Visit Provider Internal Medicine Cardiovascular Disease | DX: R55 Syncope and collapse (principal); I48.91 Unspecified atrial fibrillation; R94.31 Abnormal electrocardiogram [ECG] [EKG] | CPT/HCPCS: 93010 ==

== ENCOUNTER 2025-03-23 20:02 | Inpatient (IN) | payer MEDICARE, OTHER, SELFPAY ==
--- NOTE | ~2025-03-23 | CT_ITS ---
CLINICAL HISTORY: abnormal xrays - Radiologist recommended CT scan CT chest without contrast Comparison: CT/SR - CT ABDOMEN PELVIS W IV CON - 02/07/25 01:56 EDT Findings: The heart is normal size. Enlarged pulmonary artery. This can be seen with pulmonary artery hypertension. The visualized thyroid and mediastinum are unremarkable. Reticular and ground-glass opacities in the left upper lobe posteriorly, and to a much lesser degree in the adjacent left lower lobe. No pleural effusions. Prior granulomatous disease. Cholecystectomy. Scattered liver hypodensities again noted. Cysts favored. Osteopenia. No acute fracture. IMPRESSION: 1. Opacities in the left upper lobe and left lower lobe. This favors an infectious etiology. 2. The nodular density seen on recent chest x-ray as no CT nodule correlate. This likely represented overlapping shadows from the left upper lobe opacities. This document has been electronically signed by: Jess Burden MD on 03/24/2025 02:30:58
--- NOTE | ~2025-03-23 | XR_ITS ---
CLINICAL HISTORY: sob 2 view chest x-ray Comparison: CR - XR CHEST 1V - 01/10/25 06:05 EST CR - XR CHEST 2V - 01/04/25 21:07 EST Findings: Enlarged pulmonary artery again noted. There is a new ill-defined 12 mm nodule at the left mid peripheral lung, overlapping the left anterior 5th rib. No consolidation or effusion. Heart size within normal limits. Heart size within normal limits. Cardiac valve in place. Median sternotomy. No change. No acute fracture. IMPRESSION: 1. New indeterminate nodule left mid peripheral lung. Recommend CT characterization. 2. No consolidation. This document has been electronically signed by: Jess Burden MD on 03/23/2025 21:35:08
[2025-03-23 20:25] VITALS: BP 108/45; PULSE 61; RESP 20; TEMP 37.1; O2SAT 92; BMI 27.4
--- NOTE | 2025-03-23 20:26 | ED_ITS ---
HPI - SOB/Dyspnea General Chief Complaint: Dyspnea Stated Complaint: chest congestion, cold symptoms Time Seen by Provider: 03/23/25 23:50 Source: patient and family ( spouse) Mode of arrival: ambulatory Limitations: no limitations History of Present Illness ED Provider: DR. 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 Patient recently was protime is spironolactone 25 mg daily and Lasix was doubled by his primary doctor patient is been having polyuria. 1. Exertional dyspnea with productive cough of yellow sputum, no fever, no chills, +PND, increased bilateral ankle edema. 2. Feels lightheadedness especially when he change position describe it as feeding of vision and feel he is going to pass out. No chest pain. Related Data Home Medications ?Medication ?Instructions ?Recorded ?Confirmed acebutolol 200 mg capsule 200 mg PO BEDTIME 04/17/21 01/10/25 acebutolol 200 mg capsule 400 mg PO DAILY 04/17/21 01/10/25 doxazosin 4 mg tablet 4 mg PO DAILY 04/17/21 01/10/25 finasteride 5 mg tablet 5 mg PO BEDTIME 04/17/21 01/10/25 warfarin 4 mg tablet 4 mg PO DAILY@1800 11/02/21 01/10/25 Previous Rx's ?Medication ?Instructions ?Recorded benzonatate 200 mg capsule 200 mg PO TID PRN cough #14 caps 10/12/22 albuterol sulfate 90 mcg/actuation 2 puff inhalation Q6H PRN 01/05/25 aerosol inhaler shortness of breath or wheezing #8.5 grams furosemide 40 mg tablet 40 mg PO DAILY #30 tabs 01/16/25 lisinopril 20 mg tablet 20 mg PO DAILY #30 tabs 01/16/25 dicyclomine 10 mg capsule 10 mg PO TID PRN abdominal pain 02/07/25 #14 caps Allergies Allergy/AdvReac Type Severity Reaction Status Date / Time adhesive [ADHESIVE] Allergy Intermediate RASH, Verified 03/23/25 20:30 BLISTERS atenolol [Atenolol] Allergy Mild RASH Verified 03/23/25 20:30 sotalol [Sotalol] Allergy Mild RASH Verified 03/23/25 20:30 atorvastatin [From Lipitor] AdvReac Mild SEVERE Verified 03/23/25 20:30 ACHES AND PAINS Review of Systems 2 Review of Systems: all other systems are reviewed and are negative Constitutional: Reports as per HPI and Reports no additional constitutional complaints Eyes: Reports as per HPI and Reports no additional eye complaints Reports system reviewed and no additional complaints, except as documented Cardiovascular: Reports as per HPI and Reports no additional cardiovascular complaints Respiratory: Reports as per HPI and Reports no additional respiratory complaints Gastrointestinal: Reports as per HPI and Reports no additional gastrointestinal complaints Genitourinary: Reports no additional female genitourinary complaints Musculoskeletal: Reports no additional musculoskeletal complaints Skin/Breast: Reports system reviewed and no additional complaints, except as docu Psychiatric: Reports no additional psychiatric complaints Endocrine: Reports no additional endocrine complaints Hematologic/Lymphatic: Reports no additional hematologic/lymphatic complaints Allergic/Immunologic: Reports no additional allergic/immunologic complaints Reports system reviewed and no additional complaints, except as documented and Reports Abnormal speech present [facility] Past Medical History Medical History Atrial fibrillation HTN (hypertension) Surgical History History of cholecystectomy Aortic valve replaced Social History Social History Household Members: Spouse Housing: House Do you presently have visiting nurse or other home services: No Alcohol intake: current Alcohol intake frequency: holidays/special occasions only Comment: refused bed alarm Patient Tobacco Use Status: Never used Tobacco Smoked in Last 30 Days: No Use of substances other than those prescribed or required for medical reasons: No Advance Directives: No Advance Directives Information Provided: No Do you have a plan to hurt others: No Plan service: No Current occupational status: retired Physical Exam 2 Vital Signs: Vital Signs: Last Vital Signs Temp 98.7 F 03/24/25 02:35 Pulse 60 03/24/25 02:35 Resp 18 03/24/25 02:35 BP 101/44 L 03/24/25 02:35 Pulse Ox 92 03/24/25 02:35 O2 Del Method Room Air 03/24/25 02:35 BMI result Body Mass Index 27.4 Vital signs have been reviewed and appear to be correct. Blood pressure elevated. Heart rate normal. Respiratory rate normal. Temperature normal. Oxygen saturation normal. Appearance: Alert. Oriented X3. No acute distress. Head: Normal external exam. Normocephalic. Atraumatic. No Rodrigues signs noted. No raccoon eyes noted Eyes: PERRLA. EOMI. Conjunctiva and sclera normal. Eyelids normal. ENT: TM's Normal. Pharynx normal. Uvula midline. Moist mucous membranes. No trismus noted. No drooling noted. No muffled voice noted. Neck: Normal inspection. Neck supple. FROM. No adenopathy. Thyroid Normal. No meningeal signs. No neck mass noted. CVS: Normal heart rate and rhythm. Heart sound normal. No murmurs noted. Pulses normal throughout. Respiratory: No respiratory distress. Painless inspiration. Breath sounds normal. No wheezes/rales/rhonchi noted. Chest nontender. No accessory muscle usage noted or decreased air movement noted. Abdomen: Soft and nontender. Bowel sounds normal in all 4 quadrants. No distention noted. No organomegaly noted. No visible injury noted. Back: No CVA tenderness. Full range of motion noted. Skin: Skin warm and dry. Normal skin color. Normal skin turgor. No rashes/lesions/lacerations noted. Extremities: No lower extremity edema. Extremities exhibit normal range of motion. Extremities nontender. Neuro: Oriented X 3. Cranial nerve exam: II-XII are grossly intact No motor deficit. No sensory deficit. Reflexes normal. Course Course Course Narrative: This is a Rapid Medical Exam performed in triage by Minal Nicole PA-C. Full HPI, ROS and PE to be performed by primary ED provider. 89-year-old male with a past medical history of AFib, HTN, Guillain-Eckley, anemia, VIRGEN, presenting to the ED c/o SOB, orthopnea, chest congestion & lightheadedness x 3 days. PE: 92% on RA, + diffuse expiratory wheeze. Bilateral LE pitting edema Plan: EKG, labs, CXR, SARs, ED bronchodilator protocol Reevaluation(s) Reevaluation #1: 89-year-old male came in with progressive dyspnea and cough, CT chest showing multilobar pneumonia, patient do not meet criteria for SIRS, received 500 cc of normal saline, ceftriaxone, and doxycycline, will admit the patient. Time: 02:48 Medical Decision Making Differential Diagnosis Differential Diagnoses: The differential diagnosis associated with the presentation includes ( Pneumonia, pneumothorax, pleural effusion, congestive heart failure, ACS, electrolyte derangement, severe anemia.) Admission/Observation Consideration of admission/observation: Escalation of care including admission/observation considered Lab Data MDM Lab Attestation statement: I reviewed the patient's lab results. 03/23/25 20:43 03/23/25 20:43 Labs: Lab Results 03/23/25 Range/Units 20:43 WBC 10.0 (4.8-10.8) X10*3/uL RBC 2.87 L (4.60-5.80) X10*6/uL Hgb 8.9 L (14.0-18.0) g/dl Hct 26.8 L (42.0-52.0) % MCV 93.4 (80.0-98.0) fL MCH 31.0 (27.0-33.0) pg MCHC 33.2 (31.0-36.0) g/dl RDW 23.6 H (11.0-16.0) % Plt Count 124 L (160-400) X10*3/uL MPV 11.0 (9.4-12.4) fL Immature Gran % (Auto) 1.1 H (0.0-0.4) % Neut % (Auto) 32.5 L (45-73) % Lymph % (Auto) 18.0 L (20-40) % [place] % (Auto) 47.1 H (2-11) % Eos % (Auto) 1.0 (0-4) % Baso % (Auto) 0.3 (0-2) % Lymph # (Auto) 1.8 (1.2-4.9) X10*3/uL [place] # (Auto) 4.7 H (0.1-1.2) X10*3/uL Eos # (Auto) 0.1 (0.0-0.4) X10*3/uL Baso # (Auto) 0.0 (0.0-0.2) X10*3/uL Abs Immat Gran (auto) 0.11 H (0.00-0.03) X10*3/uL Absolute Neuts (auto) 3.2 (2.0-8.3) x10*3/uL Absolute Nucleated RBC 0.000 (0.0-0.012) X10*3/uL Nucleated RBC % (auto) 0.0 (0.0-0.2) /100WBC Smear Tech's Comments VERIFIED Sodium 136 (135-145) mmol/L Potassium 4.1 (3.3-5.1) mmol/L Chloride 100 (96-108) mmol/L Carbon Dioxide 29 (22-29) mmol/L Anion Gap 11 L (12-20) BUN 21 H (9-16) mg/dL Creatinine 1.14 (0.5-1.4) mg/dL Estim Creat Clear Calc 55.3 Estimated GFR > 60 Random Glucose 105 (60-115) mg/dL Calcium 9.1 (8.4-10.2) mg/dL Magnesium 2.2 (1.6-2.6) mg/dL Total Bilirubin 1.0 (0.0-1.0) mg/dL Direct Bilirubin 0.4 (0.0-0.5) mg/dL AST 27 (5-37) U/L ALT 13 (0-40) U/L Alkaline Phosphatase 72 (39-117) U/L Troponin I High Sens 34.4 D (<3.5-35.0) ng/L B-Natriuretic Peptide 149 H (<100) pg/mL Total Protein 7.0 (6.5-8.0) g/dL Albumin 3.9 (3.5-5.0) g/dL Influenza Type A (PCR) NEGATIVE (Negative) Influenza Type B (PCR) NEGATIVE (Negative) RSV RNA Qual (PCR) NEGATIVE (Negative) SARS-CoV-2 RNA (RT-PCR) NEGATIVE (Negative) Independent Interpretation I performed an independent interpretation of an: Plain X-Ray ( Chest:. New indeterminate nodule left mid peripheral lung. Recommend CT characterization. 2. No consolidation.) and CT Scan ( Chest:1. Opacities in the left upper lobe and left lower lobe. This favors an infectious etiology. 2. The nodular density seen on recent chest x-ray as no CT nodule correlate. This likely represented overlapping shadows from the left upper lobe opacities.) Radiology Impression Discussion of test interpretation with radiology: I have reviewed the radiologist's reading. Discharge Plan Discharge Clinical Impression: Pneumonia, Near syncope Patient Disposition: Admitted As Inpatient Prescriptions: No Action doxazosin 4 mg tablet 4 mg PO DAILY acebutolol 200 mg capsule 400 mg PO DAILY finasteride 5 mg tablet 5 mg PO BEDTIME acebutolol 200 mg capsule 200 mg PO BEDTIME warfarin 4 mg tablet 4 mg PO DAILY@1800 benzonatate 200 mg capsule 200 mg PO TID PRN (Reason: cough) Qty: 14 0RF furosemide 40 mg tablet 40 mg PO DAILY Qty: 30 0RF lisinopril 20 mg tablet 20 mg PO DAILY Qty: 30 0RF albuterol sulfate 90 mcg/actuation HFA aerosol inhaler 2 puff inhalation Q6H PRN (Reason: shortness of breath or wheezing) Qty: 8.5 0RF dicyclomine 10 mg capsule 10 mg PO TID PRN (Reason: abdominal pain) Qty: 14 0RF Print Language: Kuwaiti
--- NOTE | 2025-03-23 20:30 | ECG_ITS ---
Test Reason : SOB Blood Pressure : */* mmHG Vent. Rate : 59 BPM Atrial Rate : 41 BPM P-R Int : * ms QRS Dur : 136 ms QT Int : 442 ms P-R-T Axes : * -38 69 degrees QTcB Int : 437 ms Atrial fibrillation Left axis deviation Left ventricular hypertrophy with QRS widening ( R in aVL , [place] product ) Abnormal ECG When compared with ECG of 19-Mar-2025 11:38, No significant changes seen Referred By: Minal Nicole Electronically Signed By: MARYSE BRAR
[2025-03-23 20:52] LABS: Basophils Percent Auto 0.3 % (0-2); Eosinophils Absolute Auto 0.1 X10*3/uL (0.0-0.4); Hematocrit 26.8 % (42.0-52.0); Hemoglobin 8.9 g/dl (14.0-18.0); Imm Gran Abs Auto 0.11 X10*3/uL (0.00-0.03); Imm Gran Pct Auto 1.1 % (0.0-0.4); Lymphocytes Absolute Auto 1.8 X10*3/uL (1.2-4.9); MANUAL DIFF FLAG SCAN; Mean Corpuscular HGB Conc 33.2 g/dl (31.0-36.0); Mean Corpuscular Volume 93.4 fL (80.0-98.0); Monocytes Absolute Auto 4.7 X10*3/uL (0.1-1.2); Monocytes Percent Auto 47.1 % (2-11); Neutrophils Absolute Auto 3.2 x10*3/uL (2.0-8.3); Neutrophils Percent Auto 32.5 % (45-73); Platelet Count 124 X10*3/uL (160-400); Red Blood Count 2.87 X10*6/uL (4.60-5.80); Red Cell Distribution Width 23.6 % (11.0-16.0); SCAN SMEAR FLAG 1
[2025-03-23 21:04] LABS: Alanine Aminotransferase 13 U/L (0-40); Albumin Level 3.9 g/dL (3.5-5.0); Alkaline Phosphatase 72 U/L (39-117); Anion Gap 11 (12-20); Aspartate Amino Transferase 27 U/L (5-37); Bilirubin Direct 0.4 mg/dL (0.0-0.5); Blood Urea Nitrogen 21 mg/dL (9-16); Calcium 9.1 mg/dL (8.4-10.2); Carbon Dioxide 29 mmol/L (22-29); Chloride 100 mmol/L (96-108); Creatinine Clr Calc Pharmacy 55.3; Estimated Glomerular Filt Rate > 60; Glucose Random 105 mg/dL (60-115); Magnesium 2.2 mg/dL (1.6-2.6); Potassium 4.1 mmol/L (3.3-5.1); Sodium 136 mmol/L (135-145)
[2025-03-23 21:10] LABS: B Type Natriuretic Peptide 149 pg/mL (<100)
[2025-03-23 21:11] LABS: Troponin-I High Sensitivity 34.4 ng/L (<3.5-35.0)
[2025-03-23 21:12] LABS: SLIDE REVIEW VERIFIED
--- NOTE | 2025-03-23 21:23 | PC.NURSE ---
Pt changed into hospital attire, placed on cardiac/vascular sonographer, pulse ox reading 95-96%. Callbell in reach and encouraged use for assistance.
[2025-03-23 21:28] LABS: Influenza A PCR NEGATIVE (Negative); Influenza B PCR NEGATIVE (Negative); Resp Syncy Virus RNA Qual PCR NEGATIVE (Negative); SARS COV2 PCR INHOUSE NEGATIVE (Negative)
[2025-03-23 22:00] VITALS: BP 107/47; PULSE 61; RESP 15; TEMP 36.8; O2SAT 92
[2025-03-24] VITALS (8 sets, daily range): BP systolic 99–137; BP diastolic 39–63; PULSE 60–70; RESP 16–20; TEMP 36.8–37.1; O2SAT 92–98; BMI 27.1
--- NOTE | 2025-03-24 01:22 | PC.NURSE ---
CT scan completed, patient brought back to his room.
--- NOTE | 2025-03-24 03:56 | PM.IMHP ---
History of Present Illness Date of Service: 03/24/25 Chief Complaint: cough 89-year-old male with a past medical history of Lucy [place] syndrome, anemia, osteoarthritis, atrial fibrillation, mechanical aortic valve-on Coumadin presented to the hospital today with a chief complaint of cough. Patient reports that over the past 3 days he has been having cough with yellowish sputum production. Reports subjective low-grade fevers. Denies any sick contacts. Patient denies any chest pain or palpitations. Reports he has been compliant with his home Coumadin. Denies any GI symptoms. Review of all other systems is negative except mentioned above ER course: Per ER team, patient noted to be short of breath; chest x-ray showed findings concerning for pneumonia. CT chest was done which showed multifocal pneumonia. Given antibiotics. [facility] Medical History Atrial fibrillation HTN (hypertension) Surgical History History of cholecystectomy Aortic valve replaced Social History Household Members: Spouse Housing: House Do you presently have visiting nurse or other home services: No Alcohol intake: current Alcohol intake frequency: holidays/special occasions only Comment: refused bed alarm Patient Tobacco Use Status: Never used Tobacco Smoked in Last 30 Days: No Use of substances other than those prescribed or required for medical reasons: No Advance Directives: No Advance Directives Information Provided: No Do you have a plan to hurt others: No Plan service: No Current occupational status: retired Meds Allergies Allergy/AdvReac Type Severity Reaction Status Date / Time adhesive [ADHESIVE] Allergy Intermediate RASH, Verified 03/23/25 20:30 BLISTERS atenolol [Atenolol] Allergy Mild RASH Verified 03/23/25 20:30 sotalol [Sotalol] Allergy Mild RASH Verified 03/23/25 20:30 atorvastatin [From Lipitor] AdvReac Mild SEVERE Verified 03/23/25 20:30 ACHES AND PAINS Active Medications: Current Medications Acetaminophen (Acetaminophen 325 Mg Tablet) 650 mg PO Q6H PRN PRN Reason: Pain, Mild 1-3,fever,headache Albuterol/Ipratropium (Albuterol/Iprat 2.5/0.5mg 3 Ml Ampul.Neb) 3 ml INHALE Q4H PRN PRN Reason: Shortness of Breath/Wheezing Benzonatate (Benzonatate 100 Mg Capsule) 100 mg PO TID PRN PRN Reason: Cough Calcium Carbonate (Calcium Carbonate 750 Mg Tab.Chew) 750 mg PO Q4H PRN PRN Reason: Heartburn Ceftriaxone Sodium (Ceftriaxone Sodium 1 Gm Vial) 1 gm IVPUSH Q24H [facility] Doxycycline Monohydrate (Doxycycline Monohydrate 100 Mg Capsule) 100 mg PO Q12H [facility] Doxycycline Hyclate 100 mg/ (Sodium Chloride) 250 mls @ 166.67 mls/hr IV ONCE ONE Stop: 03/24/25 04:05 Sodium Chloride (Ns) 1,000 mls @ 500 mls/hr IV .Q2H ONE Stop: 03/24/25 04:36 Magnesium Hydroxide (Milk Of Magnesia 30 Ml Oral.Susp) 30 ml PO DAILY PRN PRN Reason: Constipation Melatonin (Melatonin 3 Mg Tablet) 6 mg PO BEDTIME PRN PRN Reason: Insomnia Sodium Chloride (0.9 % Sodium Chloride Flush 3 Ml Syringe) 3 ml IVFLUSH QSHIFT [facility] Home Medications ?Medication ?Instructions ?Recorded ?Confirmed ?Last Taken ?Type acebutolol 200 mg capsule 200 mg PO BEDTIME 04/17/21 01/10/25 01/09/25 History acebutolol 200 mg capsule 400 mg PO DAILY 04/17/21 01/10/25 01/09/25 History doxazosin 4 mg tablet 4 mg PO DAILY 04/17/21 01/10/25 01/09/25 History finasteride 5 mg tablet 5 mg PO BEDTIME 04/17/21 01/10/25 01/09/25 History warfarin 4 mg tablet 4 mg PO DAILY@1800 11/02/21 01/10/25 01/09/25 History Physical Exam Vital Signs and Narrative: Vital Signs: Last Vital Signs Temp 98.7 F 03/24/25 02:35 Pulse 60 03/24/25 02:35 Resp 18 03/24/25 02:35 BP 101/44 L 03/24/25 02:35 Pulse Ox 92 03/24/25 02:35 O2 Del Method Room Air 03/24/25 02:35 BMI result Body Mass Index 27.4 Gen: Appears be in no acute distress HEENT: NCAT, Moist mucosa. Pulmonary: Coarse breath sounds CVS: Normal S1-S2 Abdomen: BS+, Soft, Nontender Extremities: Warm well perfused Neuro: Alert and awake. Results Labs 03/23/25 20:43 03/23/25 20:43 Labs: Laboratory Results - last 24 hr 03/23/25 20:43 MCV 93.4 MCH 31.0 MCHC 33.2 RDW 23.6 H Plt Count 124 L MPV 11.0 Immature Gran % (Auto) 1.1 H Neut % (Auto) 32.5 L Lymph % (Auto) 18.0 L [place] % (Auto) 47.1 H Eos % (Auto) 1.0 Baso % (Auto) 0.3 Lymph # (Auto) 1.8 [place] # (Auto) 4.7 H Eos # (Auto) 0.1 Baso # (Auto) 0.0 Abs Immat Gran (auto) 0.11 H Absolute Neuts (auto) 3.2 Absolute Nucleated RBC 0.000 Nucleated RBC % (auto) 0.0 Smear Tech's Comments VERIFIED Anion Gap 11 L Estim Creat Clear Calc 55.3 Estimated GFR > 60 Random Glucose 105 Calcium 9.1 Magnesium 2.2 Total Bilirubin 1.0 Direct Bilirubin 0.4 AST 27 ALT 13 Alkaline Phosphatase 72 B-Natriuretic Peptide 149 H Total Protein 7.0 Albumin 3.9 Influenza Type A (PCR) NEGATIVE Influenza Type B (PCR) NEGATIVE RSV RNA Qual (PCR) NEGATIVE SARS-CoV-2 RNA (RT-PCR) NEGATIVE Assessment and Plan (1) Pneumonia: Qualifiers: Pneumonia type: due to unspecified organism Laterality: unspecified laterality Lung location: unspecified part of lung Qualified Code(s): J18.9 - Pneumonia, unspecified organism Status: Acute Plan 89-year-old male with a past medical history of [place] syndrome, anemia, osteoarthritis, atrial fibrillation, mechanical aortic valve-on Coumadin presented to the hospital today with a chief complaint of cough. Noted to have multifocal pneumonia. Multifocal pneumonia: Continue ceftriaxone doxycycline Follow-up cultures DuoNebs p.r.n. Supplemental oxygen p.r.n. Mechanical aortic valve: Patient on Coumadin. INR therapeutic. Chronic medical conditions: Continue home medications once med rec is finished with the pharmacy in a.m.. DVT prophylaxis: Patient on Coumadin Code status: Full code Quality Stroke Does the patient have a stroke diagnosis?: No VTE Prior VTE?: No VTE Risk Level:: Medical - moderate - high VTE Device Contraindication: Treatment Not Indicated VTE Drug Contraindication: N/A - Med Ordered
[2025-03-24 04:04] LABS: Lactic Acid 0.7 mmol/L (0.5-2.0)
[2025-03-24] MEDS: cefTRIAXone sodium 1 GM VIAL IVPUSH (04:06)
[2025-03-24] MEDS: 0.9 % Sodium Chloride 1,000 ML 500 ML IV (04:07)
[2025-03-24] MEDS: Doxycycline Hyclate 100 MG in 0.9 % Sodium Chloride 250 ML 166.67 MG IV (04:07)
--- NOTE | 2025-03-24 04:41 | PC.NURSE ---
L wrist IV line placed and patient tolerated well. Patient medicated per JAN. Pt provided snack per pt request.
[2025-03-24 05:17] LABS: Basophils Percent Auto 0.3 % (0-2); Hemoglobin 8.4 g/dl (14.0-18.0); PLT CLUMP 1; SCAN SMEAR FLAG 1
[2025-03-24 05:19] LABS: Eosinophils Absolute Auto 0.1 X10*3/uL (0.0-0.4); Eosinophils Percent Auto 0.9 % (0-4); Hematocrit 25.1 % (42.0-52.0); Imm Gran Abs Auto 0.09 X10*3/uL (0.00-0.03); Lymphocytes Absolute Auto 1.8 X10*3/uL (1.2-4.9); Lymphocytes Percent Auto 20.1 % (20-40); MANUAL DIFF FLAG SCAN; Mean Corpuscular HGB Conc 33.5 g/dl (31.0-36.0); Mean Corpuscular Hemoglobin 31.3 pg (27.0-33.0); Mean Corpuscular Volume 93.7 fL (80.0-98.0); Mean Platelet Volume 11.6 fL (9.4-12.4); Monocytes Absolute Auto 4.2 X10*3/uL (0.1-1.2); Monocytes Percent Auto 45.7 % (2-11); NRBC Pct Auto 0.2 /100WBC (0.0-0.2); Neutrophils Absolute Auto 2.9 x10*3/uL (2.0-8.3); Red Blood Count 2.68 X10*6/uL (4.60-5.80); Red Cell Distribution Width 23.3 % (11.0-16.0)
[2025-03-24 05:25] LABS: PLT ABN DIST 1; Platelet Count 109 X10*3/uL (160-400); White Blood Count 9.1 X10*3/uL (4.8-10.8)
[2025-03-24 05:26] LABS: INTERNATIONAL NORM RATIO 2.5 (0.9-1.1); Prothrombin Time 29.7 SEC (10.9-12.4)
[2025-03-24 05:30] LABS: Anion Gap 13 (12-20); Blood Urea Nitrogen 21 mg/dL (9-16); Calcium 8.6 mg/dL (8.4-10.2); Carbon Dioxide 26 mmol/L (22-29); Chloride 102 mmol/L (96-108); Creatinine Clr Calc Pharmacy 57.9; Estimated Glomerular Filt Rate > 60; Glucose Random 126 mg/dL (60-115); Potassium 3.6 mmol/L (3.3-5.1); Sodium 137 mmol/L (135-145)
[2025-03-24 05:36] LABS: SLIDE REVIEW VERIFIED
[2025-03-24] MEDS: Benzonatate 100 MG CAPSULE PO (05:52)
[2025-03-24] MEDS: 0.9 % Sodium Chloride Flush 3 ML SYRINGE IVFLUSH ×3 (07:24→21:10)
--- NOTE | 2025-03-24 07:25 | PC.NURSE ---
patient a&ox3, vss, diagnostic cardiac sonographer nsr/sb 60s, rr equal/non labored, non productive cough, lungs course crackles throughout, ble edema-non pitting, call arrington within reach, plan of care ongoing
[2025-03-24 08:58] LABS: Procalcitonin 0.04 ng/mL
--- NOTE | 2025-03-24 10:51 | PHA.MEDREC ---
Addendum entered by Juan F Moser 03/24/25 11:09: Note, Dr Durán's Office states the furosemide was changed recently by commercial producer. They had 20mg BID on their list, but the commercial producer Dr Flores had been prescribing a 90 day supply of 40mg tabs with instructions to take 80mg in AM and 40mg in PM. Original Note: Pharmacy Consult ? Medication Reconciliation Pharmacy has completed the medication reconciliation. Spoke with patient and he was able to confirm most of his medications but got confused on a few of them and was not able to confirm his Lisinopril, Rosuvastatin or Spironolactone and said to call his Dr's office (Dr. Durán) to confirm those and anything else that might of been changed recently; We called the office and they confirmed the patient is taking the Lisinopril 20mg tab taking 2 tabs (40mg) in the morning and 1 (20mg) tablet at bedtime, Rosuvastatin 40mg tabs one tablet a day and Spironolactone 25mg tabs one tablet a day. Per Dr office they state they have Furosemide 20mg BID; Per patient and in claims from the [employer] office the patient has been filling Furosemide 40mg tabs taking 2 tabs in the morning and 1 tab at bedtime. The patient stated his Dr stopped the Potassium 20meq tablet recently.
--- NOTE | 2025-03-24 11:14 | MHC.CM.PN ---
CM met with Patient at bedside, in the ED, and addressed IMM with him; original was given to Patient and a copy will be placed on the chart. Patient lives in a house with his /HCP/Jennifer and he required no services nor DME BUILDING RIGGER. Home/self care is Patient's goal and CM has initiated and will follow for dc planning. PCP is Dr. Milton Durán and will transport to home at time of dc.
[2025-03-24 11:42] LABS: MRSA Nasal PCR NEGATIVE (Negative); SA Nasal PCR NEGATIVE (Negative)
--- NOTE | 2025-03-24 12:24 | PM.EVENT ---
Event Note Date of Service: 03/24/25 Event Note: Day hospitalist update S: coughing up sputum and feeling weak but not hypoxic O: Temp Pulse Resp BP Pulse Ox O2 Del Method 98.2 F 62 18 106/51 L 96 Room Air 03/24/25 12:19 03/24/25 12:19 03/24/25 12:19 03/24/25 12:19 03/24/25 12:19 03/24/25 12:19 Gen: in no acute distress HEENT: sclera anicteric, moist mucus membranes Neck: supple Lungs: L-sided inspiratory crackles Heart: irregular, mechanical S2 Abd: soft, non-tender, non-distended Ext: no edema Skin: warm/well-perfused Neuro: alert and oriented x3, no focal findings Psych: appropriate affect Labs: WBC 9.1, PCT 0.04 A/P: d1 for 89yo M with recent Guillain-[place] syndrome, AF + mechanical aortic valve on warfarin presenting with cough, admitted for multifocal PNA multifocal PNA - continue doxycycline + ceftriaoxne 03/24-, MRSA neg, follow BCx, trend PCT, send urinary antigens for Legionella and pneumococcus mechanical aortic valve atrial fibrillation - continue warfarin, INR at goal, monitor daily - continue metoprolol [substitute for acebutolol] HTN - BP soft; hold spironolactone, lisinopril, furosemide, and doxazosin HLD - continue atorvastatin [substitute for rosuvastatin] VTE prophylaxis - on warfarin dispo - TBD In my clinical judgment, the patient requires continued inpatient hospitalization for the following reasons: IV ABX Time Spent With Patient Time: Total time managing care of this patient today ____ minutes.
[2025-03-24] MEDS: Doxycycline Monohydrate 100 MG CAPSULE PO (17:41)
--- NOTE | 2025-03-24 18:03 | PC.NURSE ---
Pt stated had a fall a few weeks ago early in am while taking trash out at home. Discussed high fall risk measures with patient as pt had recent fall. Pt doesnt want alarm on, wants to ambulate in room. Educated pt on protocol. Pt states it wasnt like that and would like to roam in room on own. Pt is steady on feet at this time. Bed alarm off at pt refusal. Will re-edu prn
[2025-03-24] MEDS: Lidocaine 4 % Patch ADH..PATCH 1 PATCH TRANSDERMA (18:20)
[2025-03-24] MEDS: Warfarin Sodium 4 MG TABLET PO (21:09)
[2025-03-25] VITALS (7 sets, daily range): BP systolic 109–142; BP diastolic 54–77; PULSE 60–67; RESP 16–19; TEMP 36.6–37.2; O2SAT 92–95
[2025-03-25] MEDS: Doxycycline Monohydrate 100 MG CAPSULE PO ×2 (05:30→17:23)
[2025-03-25] MEDS: cefTRIAXone sodium 1 GM VIAL IVPUSH (05:30)
[2025-03-25 07:16] LABS: INTERNATIONAL NORM RATIO 2.4 (0.9-1.1); Prothrombin Time 28.4 SEC (10.9-12.4)
[2025-03-25 07:21] LABS: Anion Gap 13 (12-20); Blood Urea Nitrogen 20 mg/dL (9-16); Calcium 8.8 mg/dL (8.4-10.2); Carbon Dioxide 25 mmol/L (22-29); Chloride 102 mmol/L (96-108); Estimated Glomerular Filt Rate > 60; Glucose Random 96 mg/dL (60-115); Potassium 3.9 mmol/L (3.3-5.1); Sodium 136 mmol/L (135-145)
[2025-03-25 07:52] LABS: Hematocrit 26.1 % (42.0-52.0); Hemoglobin 8.8 g/dl (14.0-18.0); Mean Corpuscular HGB Conc 33.7 g/dl (31.0-36.0); Mean Corpuscular Hemoglobin 31.5 pg (27.0-33.0); Mean Corpuscular Volume 93.5 fL (80.0-98.0); Mean Platelet Volume 11.4 fL (9.4-12.4); Platelet Count 105 X10*3/uL (160-400); Red Blood Count 2.79 X10*6/uL (4.60-5.80); Red Cell Distribution Width 23.3 % (11.0-16.0); White Blood Count 8.6 X10*3/uL (4.8-10.8)
[2025-03-25] MEDS: Lidocaine 4 % Patch ADH..PATCH 1 PATCH TRANSDERMA (09:01)
[2025-03-25] MEDS: Metoprolol Tartrate 100 MG TABLET 200 MG PO (09:01)
[2025-03-25] MEDS: 0.9 % Sodium Chloride Flush 3 ML SYRINGE IVFLUSH ×2 (09:05→16:33)
--- NOTE | 2025-03-25 10:34 | MHC.CM.PN ---
Per MD rounds no DC today. Patient continues with SOB. DP Home selfcare with family assist and transportation home.
--- NOTE | 2025-03-25 11:01 | P.PNIM_ITS ---
Subjective Subjective Date of Service: 03/25/25 Interval History: No acute issues overnight. No O2 requirement Review of Systems Denies chest pain Admits shortness of breath which has improved Denies nausea vomiting diarrhea Denies fever chills Physical Exam 2 Vital Signs: Vital Signs: Last Vital Signs Temp 98.8 F 03/25/25 07:34 Pulse 66 03/25/25 07:34 Resp 18 03/25/25 07:34 BP 134/66 03/25/25 07:34 Pulse Ox 95 03/25/25 07:34 O2 Del Method Room Air 03/25/25 07:34 BMI result Body Mass Index 27.1 Const: Other: Awake alert no acute distress Resp: Other: Diminished throughout with scant expiratory wheezes Cardio: Other: No S4; positive S1-S2 (mechanical click); no S3 murmurs rubs or gallops GI: Other: Soft nontender nondistended normoactive bowel sounds Extrem: Other: No edema bilaterally Objective Data Active Medications Acetaminophen (Acetaminophen 325 Mg Tablet) 650 mg PO Q6H PRN PRN Reason: Pain, Mild 1-3,fever,headache Albuterol/Ipratropium (Albuterol/Iprat 2.5/0.5mg 3 Ml Ampul.Neb) 3 ml INHALE Q4H PRN PRN Reason: Shortness of Breath/Wheezing Atorvastatin Calcium (Atorvastatin Calcium 80 Mg Tablet) 80 mg PO BEDTIME [facility] Last Admin: 03/24/25 21:13 Dose: Not Given Documented By: RAINE Non-Admin Reason: pt allergic Benzonatate (Benzonatate 100 Mg Capsule) 100 mg PO TID PRN PRN Reason: Cough Last Admin: 03/24/25 05:52 Dose: 100 mg Documented By: BHUPINDER Calcium Carbonate (Calcium Carbonate 750 Mg Tab.Chew) 750 mg PO Q4H PRN PRN Reason: Heartburn Ceftriaxone Sodium (Ceftriaxone Sodium 1 Gm Vial) 1 gm IVPUSH Q24H [facility] Last Admin: 03/25/25 05:30 Dose: 1 gm Documented By: RAINE Doxycycline Monohydrate (Doxycycline Monohydrate 100 Mg Capsule) 100 mg PO Q12H [facility] Last Admin: 03/25/25 05:30 Dose: 100 mg Documented By: RAINE Lidocaine (Lidocaine 4 % Patch Adh..Patch) 1 patch TRANSDERMA DAILY [facility]; Protocol Last Admin: 03/25/25 09:01 Dose: 1 patch Documented By: MANUEL Magnesium Hydroxide (Milk Of Magnesia 30 Ml Oral.Susp) 30 ml PO DAILY PRN PRN Reason: Constipation Melatonin (Melatonin 3 Mg Tablet) 6 mg PO BEDTIME PRN PRN Reason: Insomnia Metoprolol Tartrate (Metoprolol Tartrate 100 Mg Tablet) 200 mg PO DAILY [facility] Last Admin: 03/25/25 09:01 Dose: 200 mg Documented By: MANUEL Metoprolol Tartrate (Metoprolol Tartrate 100 Mg Tablet) 100 mg PO BEDTIME [facility] Last Admin: 03/24/25 21:30 Dose: Not Given Documented By: RAINE Non-Admin Reason: per Sodium Chloride (0.9 % Sodium Chloride Flush 3 Ml Syringe) 3 ml IVFLUSH QSHIFT [facility] Last Admin: 03/25/25 09:05 Dose: 3 ml Documented By: MANUEL Labs 03/25/25 06:43 03/25/25 06:43 Labs: Laboratory Results - last 24 hr 03/24/25 03/25/25 10:23 06:43 MCV 93.5 MCH 31.5 MCHC 33.7 RDW 23.3 H Plt Count 105 L MPV 11.4 Absolute Nucleated RBC 0.000 Nucleated RBC % (auto) 0.0 PT 28.4 H INR 2.4 H Anion Gap 13 Estim Creat Clear Calc 76.0 Estimated GFR > 60 Random Glucose 96 Calcium 8.8 Nasal Screen MRSA (PCR) NEGATIVE Nasal S. aureus Screen NEGATIVE Nasal MRSA/S.aureus Interp SEE NOTE Microbiology Microbiology Results: Microbiology 03/24/25 18:23 Gram Stain - Final Sputum - Expectorated Sputum Culture - Preliminary Culture in progress. 03/24/25 03:31 Blood Culture - Preliminary Blood - Venous No growth after 24 hours. 03/24/25 03:37 Blood Culture - Preliminary Blood - Venous No growth after 24 hours. 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 Noted to have multifocal pneumonia. 1.Multifocal pneumonia: -ceftriaxone/doxycycline(2) -pulse dose steroids -DuoNebs p.r.n. -Supplemental oxygen p.r.n. 2.Mechanical aortic valve -INR therapeutic -follow INR daily 3. Hypertension -acceptable control on current therapies -adjust as indicated DVT prophylaxis: Patient on Coumadin Code status: Full code Quality Stroke Does the patient have a stroke diagnosis?: No VTE Prior VTE?: No VTE Risk Level:: Medical - moderate - high VTE Device Contraindication: Treatment Not Indicated VTE Drug Contraindication: N/A - Med Ordered
[2025-03-25] MEDS: methylPREDNISolone Sod Succ 40 MG/ML VIAL IVPUSH ×2 (11:31→17:22)
[2025-03-25] MEDS: Furosemide 40 MG TABLET PO (16:09)
[2025-03-25] MEDS: lisinopriL 20 MG TABLET PO (16:09)
[2025-03-25] MEDS: Warfarin Sodium 4 MG TABLET PO (17:23)
[2025-03-26] MEDS: 0.9 % Sodium Chloride Flush 3 ML SYRINGE IVFLUSH ×2 (00:14→09:04)
[2025-03-26] MEDS: Benzonatate 100 MG CAPSULE PO (00:14)
[2025-03-26] MEDS: methylPREDNISolone Sod Succ 40 MG/ML VIAL IVPUSH ×3 (00:14→12:19)
[2025-03-26 03:36] VITALS: BP 125/62; PULSE 56; RESP 20; TEMP 36.7; O2SAT 95
[2025-03-26] MEDS: Doxycycline Monohydrate 100 MG CAPSULE PO (05:30)
[2025-03-26] MEDS: cefTRIAXone sodium 1 GM VIAL IVPUSH (05:30)
[2025-03-26 07:29] LABS: Basophils Percent Auto 0.5 % (0-2); Hemoglobin 8.9 g/dl (14.0-18.0); Imm Gran Abs Auto 0.09 X10*3/uL (0.00-0.03); Imm Gran Pct Auto 4.8 % (0.0-0.4); Lymphocytes Absolute Auto 0.9 X10*3/uL (1.2-4.9); Lymphocytes Percent Auto 47.1 % (20-40); MANUAL DIFF FLAG SCAN; Mean Corpuscular Hemoglobin 30.7 pg (27.0-33.0); Mean Corpuscular Volume 93.1 fL (80.0-98.0); Monocytes Absolute Auto 0.1 X10*3/uL (0.1-1.2); Monocytes Percent Auto 5.3 % (2-11); Neutrophils Absolute Auto 0.8 x10*3/uL (2.0-8.3); Neutrophils Percent Auto 42.3 % (45-73); PLT CLUMP 1; Red Cell Distribution Width 23.1 % (11.0-16.0); SCAN SMEAR FLAG 1
[2025-03-26 07:33] LABS: NRBC Pct Auto 1.1 /100WBC (0.0-0.2)
[2025-03-26 07:34] LABS: INTERNATIONAL NORM RATIO 3.2 (0.9-1.1); Prothrombin Time 37.5 SEC (10.9-12.4)
[2025-03-26 07:40] LABS: Alanine Aminotransferase 12 U/L (0-40); Albumin Level 3.7 g/dL (3.5-5.0); Alkaline Phosphatase 66 U/L (39-117); Anion Gap 13 (12-20); Aspartate Amino Transferase 30 U/L (5-37); Bilirubin Total 0.6 mg/dL (0.0-1.0); Blood Urea Nitrogen 23 mg/dL (9-16); Calcium 8.9 mg/dL (8.4-10.2); Carbon Dioxide 27 mmol/L (22-29); Chloride 102 mmol/L (96-108); Creatinine Clr Calc Pharmacy 70.1; Estimated Glomerular Filt Rate > 60; Glucose Fasting 146 mg/dL (60-99); Potassium 4.1 mmol/L (3.3-5.1); Sodium 138 mmol/L (135-145); Total Protein 6.8 g/dL (6.5-8.0)
[2025-03-26 07:58] LABS: White Blood Count 1.9 X10*3/uL (4.8-10.8)
[2025-03-26 07:59] LABS: Platelet Count 103 X10*3/uL (160-400); SLIDE REVIEW VERIFIED
[2025-03-26 08:00] VITALS: BP 140/62; PULSE 63; RESP 18; TEMP 37.2; O2SAT 96
--- NOTE | 2025-03-26 08:08 | P.PNIM_ITS ---
Subjective Subjective Date of Service: 03/26/25 Physical Exam 2 Vital Signs: Vital Signs: Last Vital Signs Temp 98.0 F 03/26/25 03:36 Pulse 56 03/26/25 03:36 Resp 20 03/26/25 03:36 BP 125/62 03/26/25 03:36 Pulse Ox 95 03/26/25 03:36 O2 Del Method Room Air 03/26/25 03:36 BMI result Body Mass Index 27.1 Objective Data Active Medications Acetaminophen (Acetaminophen 325 Mg Tablet) 650 mg PO Q6H PRN PRN Reason: Pain, Mild 1-3,fever,headache Albuterol/Ipratropium (Albuterol/Iprat 2.5/0.5mg 3 Ml Ampul.Neb) 3 ml INHALE Q4H PRN PRN Reason: Shortness of Breath/Wheezing Atorvastatin Calcium (Atorvastatin Calcium 80 Mg Tablet) 80 mg PO BEDTIME [facility] Last Admin: 03/25/25 20:49 Dose: Not Given Documented By: LISA Non-Admin Reason: Pt allergic Benzonatate (Benzonatate 100 Mg Capsule) 100 mg PO TID PRN PRN Reason: Cough Last Admin: 03/26/25 00:14 Dose: 100 mg Documented By: LISA Calcium Carbonate (Calcium Carbonate 750 Mg Tab.Chew) 750 mg PO Q4H PRN PRN Reason: Heartburn Ceftriaxone Sodium (Ceftriaxone Sodium 1 Gm Vial) 1 gm IVPUSH Q24H [facility] Last Admin: 03/26/25 05:30 Dose: 1 gm Documented By: LISA Doxazosin Mesylate (Doxazosin Mesylate 2 Mg Tablet) 4 mg PO DAILY [facility]; Protocol Doxycycline Monohydrate (Doxycycline Monohydrate 100 Mg Capsule) 100 mg PO Q12H [facility] Last Admin: 03/26/25 05:30 Dose: 100 mg Documented By: LISA Furosemide (Furosemide 40 Mg Tablet) 40 mg PO DAILY@1700 [facility]; Protocol Last Admin: 03/25/25 16:09 Dose: 40 mg Documented By: MANUEL Furosemide (Furosemide 40 Mg Tablet) 80 mg PO DAILY [facility]; Protocol Lidocaine (Lidocaine 4 % Patch Adh..Patch) 1 patch TRANSDERMA DAILY [facility]; Protocol Last Admin: 03/25/25 09:01 Dose: 1 patch Documented By: MANUEL Lisinopril (Lisinopril 20 Mg Tablet) 20 mg PO DAILY@1700 [facility]; Protocol Last Admin: 03/25/25 16:09 Dose: 20 mg Documented By: MANUEL Lisinopril (Lisinopril 40 Mg Tablet) 40 mg PO DAILY [facility]; Protocol Magnesium Hydroxide (Milk Of Magnesia 30 Ml Oral.Susp) 30 ml PO DAILY PRN PRN Reason: Constipation Melatonin (Melatonin 3 Mg Tablet) 6 mg PO BEDTIME PRN PRN Reason: Insomnia Methylprednisolone Sodium Succinate (Methylprednisolone Sod Succ 40 Mg/Ml Vial) 40 mg IVPUSH Q6H [facility] Last Admin: 03/26/25 05:30 Dose: 40 mg Documented By: LISA Metoprolol Tartrate (Metoprolol Tartrate 100 Mg Tablet) 200 mg PO DAILY [facility] Last Admin: 03/25/25 09:01 Dose: 200 mg Documented By: MANUEL Metoprolol Tartrate (Metoprolol Tartrate 100 Mg Tablet) 100 mg PO BEDTIME [facility] Last Admin: 03/25/25 22:06 Dose: Not Given Documented By: LISA Non-Admin Reason: Held per MD De La Cruz Sodium Chloride (0.9 % Sodium Chloride Flush 3 Ml Syringe) 3 ml IVFLUSH QSHIFT [facility] Last Admin: 03/26/25 00:14 Dose: 3 ml Documented By: LISA Spironolactone (Spironolactone 25 Mg Tablet) 25 mg PO DAILY [facility]; Protocol Warfarin Sodium (Warfarin Sodium 4 Mg Tablet) 4 mg PO DAILY@1800 [facility] Last Admin: 03/25/25 17:23 Dose: 4 mg Documented By: HARPERISPE Labs 03/26/25 06:48 03/26/25 06:48 Labs: Laboratory Results - last 24 hr 03/26/25 06:48 MCV 93.1 MCH 30.7 MCHC 33.0 RDW 23.1 H Plt Count 103 L MPV Not Reportable Immature Gran % (Auto) 4.8 H Neut % (Auto) 42.3 L Lymph % (Auto) 47.1 H [place] % (Auto) 5.3 Eos % (Auto) 0.0 Baso % (Auto) 0.5 Lymph # (Auto) 0.9 L [place] # (Auto) 0.1 Eos # (Auto) 0.0 Baso # (Auto) 0.0 Abs Immat Gran (auto) 0.09 H Absolute Neuts (auto) 0.8 L Absolute Nucleated RBC 0.020 H Nucleated RBC % (auto) 1.1 H Smear Tech's Comments VERIFIED PT 37.5 H D INR 3.2 H Anion Gap 13 Estim Creat Clear Calc 70.1 Estimated GFR > 60 Fasting Glucose 146 H Calcium 8.9 Total Bilirubin 0.6 AST 30 ALT 12 Alkaline Phosphatase 66 Total Protein 6.8 Albumin 3.7 Microbiology Microbiology Results: Microbiology 03/24/25 03:31 Blood Culture - Preliminary Blood - Venous No growth after 48 hours. 03/24/25 03:37 Blood Culture - Preliminary Blood - Venous No growth after 48 hours. 03/24/25 18:23 Gram Stain - Final Sputum - Expectorated Sputum Culture - Preliminary Culture in progress. Assessment and Plan (1) Pneumonia: Status: Acute (2) HTN (hypertension): Status: Acute Plan 89-year-old male with a past medical history of [place] syndrome, anemia, osteoarthritis, atrial fibrillation, mechanical aortic valve-on Coumadin presented to the hospital today with a chief complaint of cough. Noted to have multifocal pneumonia. 1.Multifocal pneumonia: -ceftriaxone/doxycycline(2) -pulse dose steroids -DuoNebs p.r.n. -Supplemental oxygen p.r.n. 2.Mechanical aortic valve -INR therapeutic -follow INR daily 3. Hypertension -acceptable control on current therapies -adjust as indicated DVT prophylaxis: Patient on Coumadin Code status: Full code Quality Stroke Does the patient have a stroke diagnosis?: No VTE Prior VTE?: No VTE Risk Level:: Medical - moderate - high VTE Device Contraindication: Treatment Not Indicated VTE Drug Contraindication: N/A - Med Ordered
[2025-03-26 08:33] LABS: Hematocrit 25.7 % (42.0-52.0); Hemoglobin 8.8 g/dl (14.0-18.0); Mean Corpuscular HGB Conc 34.2 g/dl (31.0-36.0); Mean Corpuscular Hemoglobin 31.2 pg (27.0-33.0); Mean Corpuscular Volume 91.1 fL (80.0-98.0); Mean Platelet Volume 10.9 fL (9.4-12.4); Platelet Count 106 X10*3/uL (160-400); Red Blood Count 2.82 X10*6/uL (4.60-5.80)
[2025-03-26 08:34] LABS: White Blood Count 1.8 X10*3/uL (4.8-10.8)
[2025-03-26 08:53] VITALS: PULSE 57
[2025-03-26] MEDS: Doxazosin Mesylate 2 MG TABLET 4 MG PO (08:54)
[2025-03-26] MEDS: Lidocaine 4 % Patch ADH..PATCH 1 PATCH TRANSDERMA ×2 (08:54→13:01)
[2025-03-26] MEDS: Spironolactone 25 MG TABLET PO (08:55)
[2025-03-26] MEDS: Furosemide 40 MG TABLET 80 MG PO (08:59)
[2025-03-26] MEDS: lisinopriL 40 MG TABLET PO (08:59)
[2025-03-26 11:29] VITALS: BP 106/57; PULSE 74; RESP 20; TEMP 37.1; O2SAT 94
[2025-03-26 11:56] LABS: Hematocrit 26.7 % (42.0-52.0); Hemoglobin 8.9 g/dl (14.0-18.0); Mean Corpuscular HGB Conc 33.3 g/dl (31.0-36.0); Mean Corpuscular Hemoglobin 30.6 pg (27.0-33.0); Mean Corpuscular Volume 91.8 fL (80.0-98.0); Mean Platelet Volume 11.1 fL (9.4-12.4); NRBC Pct Auto 0.9 /100WBC (0.0-0.2); Red Blood Count 2.91 X10*6/uL (4.60-5.80); Red Cell Distribution Width 23.1 % (11.0-16.0)
--- NOTE | 2025-03-26 12:00 | P.DS_ITS ---
DS: Providers Provider Date of Service: 03/26/25 Date of admission: 03/24/25 03:54 Date of discharge: 03/26/25 Primary care physician: Milton Durán MD Attending physician on admission: Neal Phan Attending physician on discharge: Lonnie Last Discharging clinician: Stephy Lowery DS: Diagnosis Discharge Diagnosis (1) Pneumonia: Status: Acute (2) HTN (hypertension): Status: Acute DS: Summary Hospital Course Hospital Course: HPI on admission by Dr. 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 Patient reports that over the past 3 days he has been having cough with yellowish sputum production. Reports subjective low-grade fevers. Denies any sick contacts. Patient denies any chest pain or palpitations. Reports he has been compliant with his home Coumadin. Denies any GI symptoms. Review of all other systems is negative except mentioned above ER course: Per ER team, patient noted to be short of breath; chest x-ray showed findings concerning for pneumonia. CT chest was done which showed multifocal pneumonia. Given antibiotics. Hospital course: 89-year-old male admitted to [facility] for management of multifocal pneumonia with near-syncope. He was treated with IV cefepime and vancomycin as well as IV methylprednisolone with good improvement in symptoms. Vital signs throughout admission remains stable, no hypoxia or fevers. Course was complicated by an acute leukopenia, thought to be iatrogenic nature. WBC the day prior to discharge 8.6, 1.9 the morning of discharge. WBC did improve to 2.3 later in the day. RBC, H/H, platelets remained stable. Differential otherwise stable. Hospital course otherwise uncomlicated. Will be discharge on cefuroxime 500 mg twice daily and doxycycline 100 mg twice daily to complete additional 14 doses. Problems: Multifocal pneumonia CT abdomen/pelvis showed opacities in the left upper lobe left lower lobe consistent with multifocal pneumonia Treated with IV ceftriaxone and doxycycline as well as IV methylprednisolone On discharge: Cefuroxime 500 mg twice daily times 14 doses and doxycycline 100 mg twice daily times 14 doses. Prednisone 20 mg daily x3 days, Tessalon p.r.n. Acute Leukopenia Likely iatrogenic in the setting of cephalosporin use Prednisone 20 mg x 3 days Repeat CBC in 3 days Hypertension Blood pressure controlled during admission Continue lisinopril, spironolactone, acebutolol Paroxysmal atrial fibrillation Continue Coumadin, monitor INR Continue acebutolol Chronic normocytic anemia H/H baseline Chronic thrombocytopenia Baseline S/p aortic valve replacement with mechanical valve Continue Coumadin, monitor INR Hyperlipidemia Continue statin BPH Continue doxazosin Status at Discharge Overall status at discharge: patient is progressing back to baseline Time Attestation Discharge Coordination Time (in mins): 40 Quality: Safe Use of Opioids Does Pt have an Active Cancer Diagnosis on the Problem List?: No Quality: Stroke Does the patient have a stroke diagnosis?: No Physical Exam Vital Signs: Vital Signs: Last Vital Signs Temp 98.7 F 03/26/25 11:29 Pulse 74 03/26/25 11:29 Resp 20 03/26/25 11:29 BP 106/57 L 03/26/25 11:29 Pulse Ox 94 03/26/25 11:29 O2 Del Method Room Air 03/26/25 11:29 BMI result Body Mass Index 27.1 Constitutional - Awake and Alert, No apparent distress Eyes - PERRLA, EOMI Cardiovascular - S1S2, RRR, No edema Respiratory - Normal lung expansion, Normal respiratory effort, No respiratory distress, CTA bilaterally Extremities - no calf tenderness bilaterally, no swelling Skin - Warm/Dry Neurological - Alert & oriented x3 Psychological - Appropriate affect DS: Data Data Completed and Pending Completed studies during hospitalization [Text1]: Procedures Introduction of Remdesivir Anti-infective into Peripheral Vein, Percutaneous Approach, [employer] (11/02/21) Transfusion of Nonautologous Globulin into Peripheral Vein, Percutaneous Approach (01/10/25) Labs on day of discharge: Laboratory Results - last 24 hr 03/26/25 03/26/25 03/26/25 06:48 08:25 11:41 WBC 1.9 L 1.8 L 2.3 L RBC 2.90 L 2.82 L 2.91 L Hgb 8.9 L 8.8 L 8.9 L Hct 27.0 L 25.7 L 26.7 L MCV 93.1 91.1 91.8 MCH 30.7 31.2 30.6 MCHC 33.0 34.2 33.3 RDW 23.1 H 23.0 H 23.1 H Plt Count 103 L 106 L 114 L MPV Not Reportable 10.9 11.1 Immature Gran % (Auto) 4.8 H Neut % (Auto) 42.3 L Lymph % (Auto) 47.1 H Valencia % (Auto) 5.3 Eos % (Auto) 0.0 Baso % (Auto) 0.5 Lymph # (Auto) 0.9 L Valencia # (Auto) 0.1 Eos # (Auto) 0.0 Baso # (Auto) 0.0 Abs Immat Gran (auto) 0.09 H Absolute Neuts (auto) 0.8 L Absolute Nucleated RBC 0.020 H 0.000 0.020 H Nucleated RBC % (auto) 1.1 H 0.0 0.9 H Smear Tech's Comments VERIFIED PT 37.5 H D INR 3.2 H Sodium 138 Potassium 4.1 Chloride 102 Carbon Dioxide 27 Anion Gap 13 BUN 23 H Creatinine 0.90 Estim Creat Clear Calc 70.1 Estimated GFR > 60 Fasting Glucose 146 H Calcium 8.9 Total Bilirubin 0.6 AST 30 ALT 12 Alkaline Phosphatase 66 Total Protein 6.8 Albumin 3.7 Preliminary micro results at discharge 03/24/25 18:23 Sputum Culture - Preliminary Sputum - Expectorated Culture in progress. 03/24/25 03:31 Blood Culture - Preliminary Blood - Venous No growth after 48 hours. 03/24/25 03:37 Blood Culture - Preliminary Blood - Venous No growth after 48 hours. Discharge Plan Discharge Anticipated Discharge Date/Time: 03/26/25 11:33 Patient Disposition: Home, Self-Care Discharge Diagnosis: Multifocal pneumonia, near syncope Referrals: Milton Durán MD [Primary Care Provider] - 1 Week Discharge Medications: New cefuroxime axetil 500 mg tablet 500 mg PO Q12H Qty: 14 0RF doxycycline hyclate 100 mg capsule 100 mg PO BID Qty: 14 0RF benzonatate 100 mg capsule 100 mg PO TID PRN (Reason: cough) Qty: 30 0RF prednisone 20 mg tablet 20 mg PO DAILY Qty: 3 0RF Continued doxazosin 4 mg tablet 4 mg PO DAILY acebutolol 200 mg capsule 400 mg PO DAILY acebutolol 200 mg capsule 200 mg PO BEDTIME warfarin 4 mg tablet 4 mg PO DAILY@1800 furosemide 40 mg tablet 80 mg PO DAILY lisinopril 20 mg tablet 40 mg PO DAILY spironolactone 25 mg tablet 25 mg PO DAILY rosuvastatin 40 mg tablet 40 mg PO BEDTIME furosemide 40 mg tablet 40 mg PO DAILY@1700 lisinopril 20 mg tablet 20 mg PO DAILY@1700 albuterol sulfate 90 mcg/actuation HFA aerosol inhaler 2 puff inhalation Q6H PRN (Reason: shortness of breath or wheezing) Qty: 8.5 0RF Discharge Orders: Discharge Order (Routine); Ordered 03/26/25 Ordered By: Stephy Lowery Diet: Advance to usual diet Activity on Discharge: As tolerated Stand Alone Forms: Patient Portal Discharge page Print Language: [place] Islander Other Ambulatory Orders: Complete Blood Count Auto Diff (Routine) Timeframe: 3 Days Facility: [facility] - Location: Laboratory Ordered By: Stephy Lowery Care Plan Goals: Resolve pneumonia Monitor white blood cell count Health Concerns: Multifocal pneumonia Near syncope Leukopenia Plan of Treatment: Pneumonia Treated with IV cefepime and vancomycin in the hospital as well as IV steroids Take cefuroxime 500mg twice daily (next dose this evening) and doxycycline 100mg twice daily (Next dose due this evening) x14 doses Take prednisone 20mg daily x3 more days Near syncope likely related to infection above. Continue antibiotics and adequate oral fluids Leukopenia (Low white blood cells) Likely secondary to antibiotics (ceftriaxone) Prednisone will help to increase white blood cell count Recheck complete blood count in 3 days Follow up with PCP Assessment: Admitted for multifocal pneumonia with near syncope, treated with IV antibiotics and steroids with good improvement in symptoms. Will discharge home and complete course of oral antibiotics as well as 3 additional days of prednisone. Course complicated by leukopenia likely secondary to antibiotic use. Prednisone is likely to improve this and recommended to follow up for labs in 3 days. See discharge summary
--- NOTE | 2025-03-26 12:07 | MHC.CM.PN ---
PT TO [place] HOME TODAY VIA FAMILY TRANSPORT
[2025-03-26 12:29] LABS: PLT CLUMP 1; SCAN SMEAR FLAG 1
[2025-03-26 12:30] LABS: Imm Gran Abs Auto 0.06 X10*3/uL (0.00-0.03); Imm Gran Pct Auto 2.8 % (0.0-0.4); Lymphocytes Absolute Auto 0.9 X10*3/uL (1.2-4.9); Lymphocytes Percent Auto 40.2 % (20-40); MANUAL DIFF FLAG SCAN; Monocytes Absolute Auto 0.3 X10*3/uL (0.1-1.2); Monocytes Percent Auto 12.6 % (2-11); Neutrophils Percent Auto 44.4 % (45-73)
[2025-03-26 12:46] LABS: PLT ABN DIST 1
[2025-03-26 12:47] LABS: Platelet Count 114 X10*3/uL (160-400); White Blood Count 2.3 X10*3/uL (4.8-10.8)
[2025-03-26 22:48] LABS: Strep Pneumo Ag urine Not Detected (Not Detected)
[2025-03-29 04:34] LABS: Legionella Ag Urine Not Detected (Not Detected)
== END 2025-03-26 13:26 | disposition home or self-care (01) | DRG 195 ==
LOC: HO.ED 03-24 02:51 → HO.EDOVER 03-24 03:58 → HO.IMC 03-24 14:52
PROVIDERS: Family Medicine; Hospitalist; Physician Assistant; Admitting Provider Hospitalist; Emergency Provider Emergency Medicine; PCP Family Medicine; Visit Provider Physician Assistant
DX: J18.9 Pneumonia, unspecified organism (principal); I10 Essential (primary) hypertension; I48.0 Paroxysmal atrial fibrillation; D69.6 Thrombocytopenia, unspecified; D64.9 Anemia, unspecified; E78.5 Hyperlipidemia, unspecified; N40.0 Benign prostatic hyperplasia without lower urinary tract symptoms; Z20.822 Contact with and (suspected) exposure to COVID-19; Z95.2 Presence of prosthetic heart valve; Z79.01 Long term (current) use of 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; Z79.899 Other long term (current) drug therapy
CPT/HCPCS: 0241U; 36415; 71046; 71250; 80048; 80053; 80076; 83605; 83735; 83880; 84145; 84484; 85025; 85027; 85610; 87040; 87070; 87205; 87449; 87640; 87641; 87899; 93005; 99285; J0696; J1271; J2919

== ENCOUNTER → 2025-03-23 20:30 | Outpatient (BNV) | payer MEDICARE, OTHER, SELFPAY | PROVIDERS: Admitting Provider Hospitalist; Emergency Provider Emergency Medicine; PCP Family Medicine; Visit Provider Internal Medicine | DX: I48.91 Unspecified atrial fibrillation (principal); I51.7 Cardiomegaly | CPT/HCPCS: 93010 ==

== ENCOUNTER → 2025-03-23 20:30 | Outpatient (BNV) | payer MEDICARE, OTHER, SELFPAY | PROVIDERS: PCP Family Medicine; Visit Provider Radiology Diagnostic Radiology | DX: R06.02 Shortness of breath (principal); R91.1 Solitary pulmonary nodule | CPT/HCPCS: 71046 ==

== ENCOUNTER → 2025-03-24 03:54 | Outpatient (BNV) | payer MEDICARE, OTHER, SELFPAY | PROVIDERS: Admitting Provider Hospitalist; Emergency Provider Emergency Medicine; PCP Family Medicine; Visit Provider Family Medicine | DX: J18.9 Pneumonia, unspecified organism (principal) | CPT/HCPCS: 99222; 99499 ==

== ENCOUNTER → 2025-03-24 | Outpatient (BNV) | payer MEDICARE, OTHER, SELFPAY | PROVIDERS: Emergency Provider Emergency Medicine; PCP Family Medicine; Visit Provider Radiology Diagnostic Radiology | DX: J18.9 Pneumonia, unspecified organism (principal) | CPT/HCPCS: 71250 ==

== ENCOUNTER 2025-03-29 10:21 | Outpatient (REF) | payer MEDICARE, OTHER, SELFPAY ==
[2025-03-29 10:37] LABS: MANUAL DIFF FLAG NO
[2025-03-29 10:58] LABS: Basophils Percent Auto 0.2 % (0-2); Eosinophils Percent Auto 0.2 % (0-4); Hematocrit 28.6 % (42.0-52.0); Hemoglobin 9.5 g/dl (14.0-18.0); Imm Gran Abs Auto 0.12 X10*3/uL (0.00-0.03); Imm Gran Pct Auto 1.9 % (0.0-0.4); Lymphocytes Absolute Auto 2.4 X10*3/uL (1.2-4.9); Lymphocytes Percent Auto 38.5 % (20-40); Mean Corpuscular HGB Conc 33.2 g/dl (31.0-36.0); Mean Corpuscular Hemoglobin 30.8 pg (27.0-33.0); Mean Corpuscular Volume 92.9 fL (80.0-98.0); Mean Platelet Volume 11.1 fL (9.4-12.4); Monocytes Absolute Auto 1.2 X10*3/uL (0.1-1.2); Monocytes Percent Auto 19.7 % (2-11); NRBC Pct Auto 0.6 /100WBC (0.0-0.2); Neutrophils Absolute Auto 2.5 x10*3/uL (2.0-8.3); Neutrophils Percent Auto 39.5 % (45-73); Platelet Count 151 X10*3/uL (160-400); Red Blood Count 3.08 X10*6/uL (4.60-5.80); Red Cell Distribution Width 22.9 % (11.0-16.0); White Blood Count 6.2 X10*3/uL (4.8-10.8)
--- OUTSIDE RECORDS SUMMARY | 2025-03-29 11:54 | XMS_ITS | Encounter Summary ---
Author Organization 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 Social History Tobacco [...] general examination [facility] (current) use of 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 PATHOLOGIST REVIEW BLOOD SMEAR Routine 01/17/2025 6:19 AM EST 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 CBC WITH AUTO DIFFERENTIAL Routine 01/17/2025 6:19 AM EST Encounter for other general examination [facility] (current) use of 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 PROTHROMBIN TIME WITH INR Routine 01/17/2025 6:19 AM EST Encounter for other general examination [facility] (current) use of 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 CBC AND DIFFERENTIAL Routine 01/17/2025 6:19 AM EST Encounter for other general examination [facility] (current) use of 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 MAGNESIUM Routine 01/17/2025 6:19 AM EST 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 01/19/2025 1:27 PM EST [facility] Blood Venous blood specimen / Unknown Venipuncture / Unknown 01/17/2025 6:19 AM EST 01/17/2025 12:22 PM EST us Bonilla Sosa MD LAB BLOOD ORDERABLES Final Res ult [facility] [address] [place] [address], [place] [phone] * (ABNORMAL) Manual differential (01/17/2025 6:19 AM [...] LAB HEMETOLOGY METHOD 01/17/2025 5:20 PM EST [facility] Monocytes Absolute Manual 2.27(H) 0.20 - 1.00 K/mcL LAB HEMETOLOGY METHOD 01/17/2025 5:20 PM EST [facility] Eosinophils Absolute Manual 0.07 0.00 - 0.50 K/mcL LAB HEMETOLOGY METHOD 01/17/2025 5:20 PM EST [facility] Basophils Absolute Manual 0.00 0.00 - 0.20 [facility] LAB HEMETOLOGY METHOD 01/17/2025 5:20 PM EST [facility] Metamyelocytes Absolute Manual 0.07(H) 0.00 - 0.00 K/mcL LAB HEMETOLOGY METHOD 01/17/2025 5:20 PM EST [facility] Myelocytes Absolute Manual 0.07(H) 0.00 - 0.00 [facility] HEMETOLOGY METHOD 01/17/2025 5:20 PM EST [facility] Blood Venous blood specimen / Unknown Venipuncture / Unknown 01/17/2025 6:19 AM EST 01/17/2025 12:22 PM EST us Bonilla Sosa MD LAB BLOOD ORDERABLES Final Res ult [facility] [address] [place] [address], * (ABNORMAL) CBC auto differential (01/17/2025 6:19 AM EST) WBC 7.1 4.8 - 10.8 K/mcL LAB HEMETOLOGY METHOD 01/17/2025 5:20 PM EST [facility] RBC 2.60(L) 4.50 - 5.50 M/mcL LAB HEMETOLOGY METHOD 01/17/2025 5:20 PM EST [facility] Hemoglobin 7.7(L) 13.5 - 17.5 g/dL LAB HEMETOLOGY METHOD 01/17/2025 5:20 PM EST [facility] Hematocrit 25.2(L) 42.0 - 54.0 % LAB HEMETOLOGY METHOD 01/17/2025 5:20 PM [facility] MCV 96.9 79.0 - 98.0 FL LAB HEMETOLOGY METHOD 01/17/2025 5:20 PM EST [facility] [...] MD LAB BLOOD ORDERABLES Final Res ult [facility] [address] [place] [address], [place] [phone] * (ABNORMAL) Prothrombin time with INR (01/17/2025 6:19 AM EST) [facility] Protime 29.7(H) 10.6 - 13.9 sec LAB COAGULATION METHOD 01/17/2025 1:26 PM EST [facility] INR 2.4 LAB COAGULATION METHOD 01/17/2025 1:26 PM EST [facility] Blood Venous blood specimen / Unknown Venipuncture / Unknown 01/17/2025 6:19 AM EST 01/17/2025 12:22 PM EST Bonilla Sosa MD LAB BLOOD ORDERABLES Final Res ult Performing Organization Address City/[facility]/ZIP Co de Phone Number [facility] [address] [place] [address], [place] [phone] * Magnesium (01/17/2025 6:19 AM EST) [facility] Magnesium 2.2 1.9 - 2.6 mg/dL LAB CHEMISTRY METHOD 01/17/2025 1:53 PM EST [facility] Blood Venous blood specimen / Unknown Venipuncture / Unknown 01/17/2025 6:19 AM EST 01/17/2025 12:22 PM EST Bonilla Sosa MD LAB BLOOD ORDERABLES Final Res ult [facility] [address] [place] [address], [place] [phone] * (ABNORMAL) Comprehensive metabolic panel (01/17/2025 6:19 AM EST) [facility] Sodium 137 133 - 145 mmol/L LAB CHEMISTRY METHOD 01/17/2025 1:53 PM EST [facility] [...] LAB CHEMISTRY METHOD 01/17/2025 1:53 PM EST [facility] Albumin 2.9(L) 3.2 - 5.0 g/dL LAB CHEMISTRY METHOD 01/17/2025 1:53 PM EST [facility] Total Bilirubin 0.8 0.0 - 1.4 mg/dL LAB CHEMISTRY METHOD 01/17/2025 1:53 PM EST [facility] Blood Venous blood specimen / Unknown Venipuncture / Unknown 01/17/2025 6:19 AM EST 01/17/2025 12:22 PM EST us Bonilla Sosa MD LAB BLOOD ORDERABLES Final Res ult [facility] [address] [place] [address], [place] [phone] documented in this encounter Visit Diagnoses Diagnosis Encounter for other general examination [facility]DC (current) use of 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 Long-term (current) use of 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 documented in this encounter Care Teams [employer] Relationship Specialty Start Date End Date Milton Durán MD [address] [place] [address] [place] [address] PCP - General 02/03/18 documented as of this encounter
--- OUTSIDE RECORDS SUMMARY | 2025-03-29 11:54 | XMS_ITS | Clinical Summary ---
Author Organization [address] [place] [address] [place] [phone] Phone Care Team Providers Care Snapper On Name Role Phone Milton Durán MD Primary Care Provider [phone] Allergies Active Allergy Reactions Criticality Noted Date [...] pressure should improve. Atrial fibrillation and flutter ([facility] V24, CM S/[facility] V28) 06/05/2021 Overview (09/27/2024): Atrial fibrillation and flutter Last Assessment & Plan: Does not require rate control medications, has no sign of profound bradycardia. Will continue to monitor clinically. Bicuspid aortic valve 06/05/2021 Overview (09/27/2024): Bicuspid aortic valve Last Assessment & Plan: Status post mechanical AVR. On Coumadin endocarditis prophylaxis. CHF (congestive heart failure) ([facility] V24, [facility] V28) 06/05/2021 Overview (09/27/2024): Last Assessment & Plan: Is small volume overloaded with moderate lower extremity edema and dilated IVC with poor collapse. He is on furosemide 80 mg in the morning. I will add additional 40 mg in the afternoon. Will check BMP, magnesium and BNP. Syncope 06/05/2021 Overview (09/27/2024): Syncope Sick sinus syndrome ([facility] V24, [facility] V28) 0 06/05/2021 Overview (09/27/2024): Sick sinus syndrome Encounters Date Type Department Care Team Description 01/17/2025 Lab Requisition [facility] - Main Lab [address] 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 (current) use of 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 from Last 3 [...] examination assisted (current) use of 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 CBC WITH AUTO DIFFERENTIAL Routine 01/17/2025 6:19 AM EST Encounter for other general examination assisted (current) use of 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 PROTHROMBIN TIME WITH INR Routine 01/17/2025 6:19 AM EST Encounter for other general examination assisted (current) use of 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 MAGNESIUM Routine 01/17/2025 6:19 AM EST Encounter for other general examination supervisor 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 (current) use of 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 CBC AND DIFFERENTIAL Routine 01/17/2025 6:19 AM EST Encounter for other general examination assisted (current) use of 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 COMPREHENSIVE METABOLIC PANEL Routine 01/17/2025 6:19 AM EST Encounter for other general examination supervisor 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 (current) use of 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 from Last 3 Months Results * (ABNORMAL) Manual differential (01/17/2025 6:19 AM EST) Neutrophils % 36.0 % LAB HEMETOLOGY METHOD 01/17/2025 5:20 PM [facility] Bands % 4.0 % LAB HEMETOLOGY METHOD 01/17/2025 5:20 PM [facility] Lymphocytes % 23.0 % LAB HEMETOLOGY METHOD 01/17/2025 5:20 PM [facility] Reactive Lymphocyte 2.00 % LAB HEMETOLOGY METHOD 01/17/2025 5:20 PM [facility] Monocytes % 32.0 % LAB HEMETOLOGY METHOD 01/17/2025 5:20 PM [facility] Eosinophils % 1.0 % LAB HEMETOLOGY METHOD 01/17/2025 5:20 PM [facility] Basophils % 0.0 % LAB HEMETOLOGY METHOD 01/17/2025 5:20 PM [facility] Metamyelocytes % 1.0(H) % LAB HEMETOLOGY METHOD 01/17/2025 5:20 PM [facility] Myelocytes % 1.0(H) % LAB HEMETOLOGY METHOD 01/17/2025 5:20 PM [facility] Neutrophils Absolute Manual 2.56 1.50 - 7.00 K/mcL LAB HEMETOLOGY METHOD 01/17/2025 5:20 PM [facility] Bands Absolute Manual 0.28(H) 0.00 - 0.00 K/mcL LAB HEMETOLOGY METHOD 01/17/2025 5:20 PM [facility] Lymphocytes Absolute 1.63 1.00 - 5.00 K/mcL LAB HEMETOLOGY METHOD 01/17/2025 5:20 PM [facility] Reactive Lymph Abs Manual 0.14(H) 0.00 - 0.00 lym LAB HEMETOLOGY METHOD 01/17/2025 5:20 PM [facility] Monocytes Absolute Manual 2.27(H) 0.20 - 1.00 K/mcL LAB HEMETOLOGY METHOD 01/17/2025 5:20 PM [facility] Eosinophils Absolute Manual 0.07 0.00 - 0.50 K/mcL LAB HEMETOLOGY METHOD 01/17/2025 5:20 PM [facility] Basophils Absolute Manual 0.00 0.00 - 0.20 K/mcL LAB HEMETOLOGY METHOD 01/17/2025 5:20 PM [facility] Metamyelocytes Absolute Manual 0.07(H) 0.00 - 0.00 K/mcL LAB HEMETOLOGY METHOD 01/17/2025 5:20 PM EST [facility] Myelocytes Absolute Manual 0.07(H) 0.00 - 0.00 K/[facility] LAB HEMETOLOGY METHOD 01/17/2025 5:20 PM EST [facility] Blood Venous blood specimen / Unknown Venipuncture / Unknown 01/17/2025 6:19 AM EST 01/17/2025 12:22 PM EST us Bonilla Sosa MD LAB BLOOD ORDERABLES Final Res ult Performing Organization Address City/[facility]/ZIP Co de Phone Number [facility] [address] [place] [address], [place] [phone] * Pathology review, blood smear (01/17/2025 6:19 [...] should be considered. 01/19/2025 1:27 PM EST [facility] Blood Venous blood specimen / Unknown Venipuncture / Unknown 01/17/2025 6:19 AM EST 01/17/2025 12:22 PM EST us Bonilla Sosa MD LAB BLOOD ORDERABLES Final Res ult [facility] [address] [place] [address], [place] [phone] * (ABNORMAL) CBC auto differential (01/17/2025 6:19 AM EST) [facility] WBC 7.1 4.8 - 10.8 K/mcL LAB HEMETOLOGY METHOD 01/17/2025 5:20 PM [facility] RBC 2.60(L) 4.50 - 5.50 M/mcL LAB HEMETOLOGY METHOD 01/17/2025 5:20 PM [facility] Hemoglobin 7.7(L) 13.5 - 17.5 g/dL LAB HEMETOLOGY METHOD 01/17/2025 5:20 PM [facility] Hematocrit 25.2(L) 42.0 - 54.0 % LAB HEMETOLOGY METHOD 01/17/2025 5:20 PM [facility] MCV 96.9 79.0 - 98.0 FL LAB HEMETOLOGY METHOD 01/17/2025 5:20 PM [facility] MCH 29.6 27.0 - 32.0 pcg LAB HEMETOLOGY METHOD 01/17/2025 5:20 PM [facility] MCHC 30.6(L) 32.0 - 37.0 g/dL LAB HEMETOLOGY METHOD 01/17/2025 5:20 PM [facility] RDW 24.7(H) 11.0 - 15.0 % LAB HEMETOLOGY METHOD 01/17/2025 5:20 PM [facility] Platelets 120(L) 130 - 400 K/mcL LAB HEMETOLOGY METHOD 01/17/2025 5:20 PM [facility] MPV 11.9(H) 7.0 - 11.0 FL LAB HEMETOLOGY METHOD 01/17/2025 5:20 PM [facility] NRBC 0.0 <1.0 % LAB HEMETOLOGY METHOD 01/17/2025 5:20 PM EST [facility] NRBC Absolute 0.00 <0.10 K/mcL LAB HEMETOLOGY METHOD 01/17/2025 5:20 PM [facility] Blood Venous blood specimen / Unknown Venipuncture / Unknown 01/17/2025 6:19 AM EST 01/17/2025 12:22 PM EST Bonilla Sosa MD LAB BLOOD ORDERABLES Final Res ult Performing Organization Address City/[facility]/ZIP Co de Phone Number [facility] [address] [place] [address], [place] [phone] * (ABNORMAL) Prothrombin time with INR (01/17/2025 6:19 AM EST) Protime 29.7(H) 10.6 - 13.9 sec LAB COAGULATION METHOD 01/17/2025 1:26 PM [facility] INR 2.4 LAB COAGULATION METHOD 01/17/2025 1:26 PM [facility] Blood Venous blood specimen / Unknown Venipuncture / Unknown 01/17/2025 6:19 AM EST 01/17/2025 12:22 PM EST Bonilla Sosa MD LAB BLOOD ORDERABLES Final Res ult Performing Organization Address City/[facility]/ZIP Co de Phone Number [facility] [address] [place] [address], [place] [phone] * Magnesium (01/17/2025 6:19 AM EST) Magnesium 2.2 1.9 - 2.6 mg/dL LAB CHEMISTRY METHOD 01/17/2025 1:53 PM [facility] Blood Venous blood specimen / Unknown Venipuncture / Unknown 01/17/2025 6:19 AM EST 01/17/2025 12:22 PM EST us Bonilla Sosa MD LAB BLOOD ORDERABLES Final Res ult [facility] [address] [place] [address], [place] [phone] * (ABNORMAL) Comprehensive metabolic panel (01/17/2025 6:19 AM EST) Sodium 137 133 - 145 mmol/L LAB CHEMISTRY METHOD 01/17/2025 1:53 PM [facility] Potassium 3.9 3.5 - 5.5 mmol/L LAB CHEMISTRY METHOD 01/17/2025 1:53 PM [facility] Chloride 103 96 - 110 mmol/L LAB CHEMISTRY METHOD 01/17/2025 1:53 PM [facility] CO2 32 21 - 32 mmol/L LAB CHEMISTRY METHOD 01/17/2025 1:53 PM [facility] Anion Gap 2(L) 3 - 11 LAB CHEMISTRY METHOD 01/17/2025 1:53 PM [facility] Glucose 77 70 - 100 mg/dL LAB CHEMISTRY METHOD 01/17/2025 1:53 PM [facility] BUN 22 5 - 25 mg/dL LAB CHEMISTRY METHOD 01/17/2025 1:53 PM [facility] Creatinine 0.89 0.70 - 1.30 mg/dL LAB CHEMISTRY METHOD 01/17/2025 1:53 PM [facility] eGFR 82 >=60 mL/min/1. 73m2 LAB CHEMISTRY METHOD 01/17/2025 1:53 PM [facility] Comment:Calculation based on the??Chronic Kidney Disease Epidemiology Collaboration (CKD-EPI) equation refit??without adjustment for race. BUN/Creatinine Ratio 24.7 LAB CHEMISTRY METHOD 01/17/2025 1:53 PM [facility] Calcium 8.2(L) 8.5 - 10.5 mg/dL LAB CHEMISTRY METHOD 01/17/2025 1:53 PM EST [facility] AST (SGOT) 26 10 - 42 unit/L LAB CHEMISTRY METHOD 01/17/2025 1:53 PM [facility] ALT (SGPT) 23 10 - 60 unit/L LAB CHEMISTRY METHOD 01/17/2025 1:53 PM [facility] Alkaline Phosphatase 59 42 - 121 unit/L LAB CHEMISTRY METHOD 01/17/2025 1:53 PM [facility] Total Protein 7.2 6.0 - 8.0 g/dL LAB CHEMISTRY METHOD 01/17/2025 1:53 PM [facility] Albumin 2.9(L) 3.2 - 5.0 g/dL LAB CHEMISTRY METHOD 01/17/2025 1:53 PM [facility] Total Bilirubin 0.8 0.0 - 1.4 mg/dL LAB CHEMISTRY METHOD 01/17/2025 1:53 PM [facility] Blood Venous blood specimen / Unknown Venipuncture / Unknown 01/17/2025 6:19 AM EST 01/17/2025 12:22 PM EST Bonilla Sosa MD LAB BLOOD ORDERABLES Final Res ult [facility] [address] [place] [address], from Last 3 Months Insurance MEDICARE Care Teams Snapper On Relationship Specialty Start Date End Date Milton Durán MD [address] [place] [address] Dr [place], [place] [address] PCP - General 02/03/18
--- OUTSIDE RECORDS SUMMARY | 2025-03-29 11:54 | XMS_ITS | Patient Health Record ---
[facility] Address [address] [place] [address] Care Team Providers Care Manager Front Office Name Role Phone Luis Armando YANG, Milton Primary Care Provider UnavailFady Mcfarland Unavailable [phone] Allergies Allergen (clinical drug ingredient) Drug/Non Drug [...] Problem Acquired hammer toe of right foot (4419353441136 105) Other hammer toe(s) (acquired), right foot (M20.41) Active confirmed Problem Acquired hammer toe of left foot (4331636376823 103) Other hammer toe(s) (acquired), left foot [...] Medicare [employer] [address] [place] [address] [id number] Keegan Fagan Jr Self - patient is the insured [facility] [address] [place] [address] [id number] Keegan Fagan Jr Self - patient is the insured Medical (General) History Medical History History ICD Code Arthritis Back,Hip,and Knee pain Gall bladder problems Heart disease High blood pressure Scarlet fever Measles Mumps Chicken pox Surgical History Surgery Date(Month/Year) Right eye surgery 195 gall bladder 2003 heart surgery unspecified 2000 Hospitalization History Reason Date(Month/Year) [facility]-pneumonia 1 week 10/2021
== END 2025-03-29 10:22 | disposition home or self-care (01) ==
LOC: HO.LAB 10:21
PROVIDERS: PCP Family Medicine; Visit Provider Physician Assistant
DX: D72.819 Decreased white blood cell count, unspecified (principal)
CPT/HCPCS: 36415; 85025

== ENCOUNTER 2025-04-02 11:19 | Observation (INO) | payer MEDICARE, OTHER, SELFPAY ==
[2025-04-02] VITALS (9 sets, daily range): BP systolic 68–132; BP diastolic 40–58; PULSE 55–66; RESP 11–18; TEMP 36.3–37.1; O2SAT 94–98; BMI 26.9
--- NOTE | ~2025-04-02 | XR_ITS ---
CLINICAL HISTORY: sob Chest radiograph, 1 view Comparison: CR - XR CHEST 2V - 03/23/25 20:53 EDT Findings: The cardiomediastinal silhouette is upper limits of normal in size with a prominent pulmonary artery. Operative changes of aortic valve replacement. Sternotomy wires are midline and appear intact. Pulmonary vascularity is mildly prominent. No focal consolidation or effusion. No pneumothorax. IMPRESSION: No acute airspace disease. Sequelae of chronic pulmonary hypertension. This document has been electronically signed by: Dalton Munoz DO on 04/02/2025 12:56:47
--- NOTE | 2025-04-02 11:26 | ECG_ITS ---
Test Reason : DIZZY Blood Pressure : */* mmHG Vent. Rate : 62 BPM Atrial Rate : 65 BPM P-R Int : * ms QRS Dur : 142 ms QT Int : 430 ms P-R-T Axes : * -29 47 degrees QTcB Int : 436 ms Atrial fibrillation Left ventricular hypertrophy with QRS widening Abnormal ECG When compared with ECG of 23-Mar-2025 20:37, No significant changes seen Referred By: Allison Ca Electronically Signed By: Gulshan Tejeda
--- NOTE | 2025-04-02 11:34 | ED_ITS ---
HPI - Dizziness General Chief Complaint: Dizziness Stated Complaint: light headed, fainting Time Seen by Provider: 04/02/25 11:41 Related Data Home Medications ?Medication ?Instructions ?Recorded ?Confirmed acebutolol 200 mg capsule 200 mg PO BEDTIME 04/17/21 04/02/25 acebutolol 200 mg capsule 400 mg PO DAILY 04/17/21 04/02/25 doxazosin 4 mg tablet 4 mg PO BEDTIME 04/17/21 04/02/25 warfarin 4 mg tablet 4 mg PO DAILY@1800 11/02/21 04/02/25 furosemide 40 mg tablet 40 mg PO DAILY@1700 03/24/25 04/02/25 furosemide 40 mg tablet 80 mg PO DAILY 03/24/25 04/02/25 lisinopril 20 mg tablet 20 mg PO DAILY@17003/24/25 04/02/25 lisinopril 20 mg tablet 40 mg PO DAILY 03/24/25 04/02/25 rosuvastatin 40 mg tablet 40 mg PO BEDTIME 03/24/25 04/02/25 spironolactone 25 mg tablet 25 mg PO DAILY 03/24/25 04/02/25 Previous Rx's ?Medication ?Instructions ?Recorded albuterol sulfate 90 mcg/actuation 2 puff inhalation Q6H PRN 01/05/25 aerosol inhaler shortness of breath or wheezing #8.5 grams cefuroxime axetil 500 mg tablet 500 mg PO Q12H #14 tabs 03/26/25 doxycycline hyclate 100 mg capsule 100 mg PO BID #14 caps 03/26/25 Allergies Allergy/AdvReac Type Severity Reaction Status Date / Time adhesive [ADHESIVE] Allergy Intermediate RASH, Verified 04/02/25 11:49 BLISTERS atenolol [Atenolol] Allergy Mild RASH Verified 04/02/25 11:49 sotalol [Sotalol] Allergy Mild RASH Verified 04/02/25 11:49 atorvastatin [From Lipitor] AdvReac Mild SEVERE Verified 04/02/25 11:49 ACHES AND PAINS PMFSH Past Medical History Medical History (Updated 04/02/25 @ 17:36 by Cheo Ramos DO) HTN (hypertension) Near syncope Leukopenia Atrial fibrillation Surgical History History of cholecystectomy Aortic valve replaced Social History Social History Household Members: Spouse Housing: House Do you presently have visiting nurse or other home services: No Alcohol intake: current Alcohol intake frequency: holidays/special occasions only Alcohol type: wine and hard liquor Comment: refused bed alarm Patient Tobacco Use Status: Never used Tobacco service: No Current occupational status: retired Physical Exam 2 Vital Signs: Vital Signs: Last Vital Signs Temp 98.1 F 04/02/25 20:00 Pulse 65 04/02/25 20:00 Resp 16 04/02/25 20:00 BP 115/58 L 04/02/25 20:00 Pulse Ox 96 04/02/25 20:00 O2 Del Method Room Air 04/02/25 20:00 BMI result Body Mass Index 26.9 Course Course Course Narrative: This is an RME performed by Destiney Ca CNP: Additional HPI, ROS, PE not included below will be deferred to primary provider. Patient is a 89-year-old male who presents emergency department for evaluation, 30 minutes prior to arrival he experienced a near syncopal episode. He went to stand up he felt as though he needed to sit down his vision was going dark, he put his head into his hands feel like it was not breathing right. Symptoms seemed to subside. He tried to stand up but the same thing happened again. Ultimately he was able to get out to the car to come to the emergency department. He reports recently in the ED for similar symptoms was found to have pneumonia hospitalized recently discharge. States he is still on antibiotics. Arrives hypotensive 68/40 manually. Brought back to main ED room 4 Reevaluation(s) Reevaluation #1: See additional note dated from Dr. Lake 04/02/2025 Medications Administered Generic Name Dose Route Start Last Admin Trade Name Freq PRN Reason Stop Dose Admin Lactated Ringer's 1,000 mls @ 100 mls/hr 04/02/25 18:45 04/02/25 18:48 Lr IVCONT 100 mls/hr .Q10H CHINO Administration Discontinued Medications Generic Name Dose Route Start Last Admin Trade Name Freq PRN Reason Stop Dose Admin Enoxaparin Sodium 100 mg 04/02/25 16:35 04/02/25 16:48 Enoxaparin Sodium 100 Mg/Ml Syringe 1 mg/kg (100 mg) 04/02/25 16:36 100 mg SUBCUT Administration ONCE ONE Lactated Ringer's 1,000 mls @ 999 mls/hr 04/02/25 12:00 04/02/25 12:38 Lr IV 04/02/25 13:00 Infused .Q1H1M CHINO Infusion Lactated Ringer's 1,000 mls @ 999 mls/hr 04/02/25 12:45 04/02/25 13:42 Lr IV 04/02/25 13:45 Infused .Q1H1M CHINO Infusion Medical Decision Making Lab Data 04/02/25 16:57 04/02/25 11:48 Labs: Lab Results 04/02/25 04/02/25 04/02/25 Range/Units 11:48 12:50 16:31 WBC 6.2 (4.8-10.8) X10*3/uL RBC 3.06 L (4.60-5.80) X10*6/uL Hgb 9.4 L (14.0-18.0) g/dl Hct 28.6 L (42.0-52.0) % MCV 93.5 (80.0-98.0) fL MCH 30.7 (27.0-33.0) pg MCHC 32.9 (31.0-36.0) g/dl RDW 23.5 H (11.0-16.0) % Plt Count 163 (160-400) X10*3/uL MPV 11.1 (9.4-12.4) fL Immature Gran % (Auto) 1.1 H (0.0-0.4) % Neut % (Auto) 25.4 L (45-73) % Lymph % (Auto) 34.1 (20-40) % [place] % (Auto) 38.2 H (2-11) % Eos % (Auto) 1.0 (0-4) % Baso % (Auto) 0.2 (0-2) % Lymph # (Auto) 2.1 (1.2-4.9) X10*3/uL [place] # (Auto) 2.4 H (0.1-1.2) X10*3/uL Eos # (Auto) 0.1 (0.0-0.4) X10*3/uL Baso # (Auto) 0.0 (0.0-0.2) X10*3/uL Abs Immat Gran (auto) 0.07 H (0.00-0.03) X10*3/uL Absolute Neuts (auto) 1.6 L (2.0-8.3) x10*3/uL Absolute Nucleated RBC 0.020 H (0.0-0.012) X10*3/uL Nucleated RBC % (auto) 0.3 H (0.0-0.2) /100WBC Smear Tech's Comments VERIFIED PT 20.1 H D (10.9-12.4) SEC INR 1.7 H (0.9-1.1) Sodium 141 (135-145) mmol/L Potassium 4.3 (3.3-5.1) mmol/L Chloride 99 (96-108) mmol/L Carbon Dioxide 34 H (22-29) mmol/L Anion Gap 12 (12-20) BUN 30 H (9-16) mg/dL Creatinine 1.22 (0.5-1.4) mg/dL Estim Creat Clear Calc 51.7 Estimated GFR 56 Random Glucose 111 (60-115) mg/dL Lactic Acid 1.2 (0.5-2.0) mmol/L Calcium 9.2 (8.4-10.2) mg/dL Magnesium 2.1 (1.6-2.6) mg/dL Total Bilirubin 1.1 H (0.0-1.0) mg/dL AST 34 (5-37) U/L ALT 24 (0-40) U/L Alkaline Phosphatase 60 (39-117) U/L Troponin I High Sens 27.8 21.5 (<3.5-35.0) ng/L B-Natriuretic Peptide 86 (<100) pg/mL Total Protein 6.6 (6.5-8.0) g/dL Albumin 3.8 (3.5-5.0) g/dL Urine Color Yellow Urine Appearance Clear Urine pH 7.5 (5.0-9.0) Ur Specific [place] 1.010 (1.005-1.025) Urine Protein 30 (1+) H (Neg-Trace) mg/dL Urine Glucose (UA) Negative (Negative) mg/dL Urine Ketones Negative (Negative) mg/dL Urine Blood Trace H (Negative) Urine Nitrite Negative (Negative) Ur Leukocyte Esterase Negative (Negative) Urine RBC 0-2 (0-2) /HPF Urine WBC 0-5 (0-5) /HPF Ur Squamous Epith Cells 0-2 (0-2) /HPF Urine Bacteria None Seen (None Seen) Hyaline Casts 0-2 (0-2) /LPF Influenza Type A (PCR) NEGATIVE (Negative) Influenza Type B (PCR) NEGATIVE (Negative) RSV RNA Qual (PCR) NEGATIVE (Negative) SARS-CoV-2 RNA (RT-PCR) NEGATIVE (Negative) Discharge Plan Discharge Clinical Impression: Acute hypotension, Subtherapeutic international normalized ratio (INR), Near syncope Patient Disposition: Admitted As Inpatient Interventions: Admission Worksheet (ED) Last Done: 04/02/25 17:20 Discharge Date/Time: 04/02/25 18:05
[2025-04-02] MEDS: Lactated Ringers 1,000 ML 999 ML IV ×2 (12:01→12:39)
[2025-04-02 12:10] LABS: Basophils Percent Auto 0.2 % (0-2); Eosinophils Absolute Auto 0.1 X10*3/uL (0.0-0.4); Hematocrit 28.6 % (42.0-52.0); Hemoglobin 9.4 g/dl (14.0-18.0); Imm Gran Abs Auto 0.07 X10*3/uL (0.00-0.03); Imm Gran Pct Auto 1.1 % (0.0-0.4); Lymphocytes Absolute Auto 2.1 X10*3/uL (1.2-4.9); Lymphocytes Percent Auto 34.1 % (20-40); MANUAL DIFF FLAG SCAN; Mean Corpuscular HGB Conc 32.9 g/dl (31.0-36.0); Mean Corpuscular Hemoglobin 30.7 pg (27.0-33.0); Mean Corpuscular Volume 93.5 fL (80.0-98.0); Mean Platelet Volume 11.1 fL (9.4-12.4); Monocytes Absolute Auto 2.4 X10*3/uL (0.1-1.2); Monocytes Percent Auto 38.2 % (2-11); NRBC Pct Auto 0.3 /100WBC (0.0-0.2); Neutrophils Absolute Auto 1.6 x10*3/uL (2.0-8.3); Neutrophils Percent Auto 25.4 % (45-73); Platelet Count 163 X10*3/uL (160-400); Red Blood Count 3.06 X10*6/uL (4.60-5.80); Red Cell Distribution Width 23.5 % (11.0-16.0); SCAN SMEAR FLAG 1; White Blood Count 6.2 X10*3/uL (4.8-10.8)
[2025-04-02 12:14] LABS: Lactic Acid 1.2 mmol/L (0.5-2.0)
--- NOTE | 2025-04-02 12:19 | ED_ITS ---
HPI - Dizziness General Chief Complaint: Dizziness Stated Complaint: light headed, fainting Time Seen by Provider: 04/02/25 11:41 Source: patient Mode of arrival: ambulatory Limitations: no limitations History of Present Illness HPI Narrative: This is a very nice 89 years old male presented to the emergency department with a chief complaint of dizziness he described the dizziness as lightheadedness near syncopal, he was found to be hypotensive in triage with a blood pressure 68/40. He denies any chest pain shortness of breath fever chills. He was hospitalized on March 24 discharged on March 26 with pneumonia ,he has history of paroxysmal atrial fibrillation, mechanical aortic valve on warfarin, anemia Guillain-[place]. MD elicited complaint: lightheadedness and near syncope Onset (ago): hour(s) (3) Timing: gradual onset Severity: severe Description: lightheadedness and near-syncope History of similar symptoms: No Exacerbating factors: nothing Relieving factors: nothing Associated symptoms: denies other symptoms Related Data Home Medications ?Medication ?Instructions ?Recorded ?Confirmed acebutolol 200 mg capsule 200 mg PO BEDTIME 04/17/21 03/24/25 acebutolol 200 mg capsule 400 mg PO DAILY 04/17/21 03/24/25 doxazosin 4 mg tablet 4 mg PO DAILY 04/17/21 03/24/25 warfarin 4 mg tablet 4 mg PO DAILY@1800 11/02/21 03/24/25 furosemide 40 mg tablet 40 mg PO DAILY@17003/24/25 03/24/25 furosemide 40 mg tablet 80 mg PO DAILY 03/24/25 03/24/25 lisinopril 20 mg tablet 20 mg PO DAILY@17003/24/25 03/24/25 lisinopril 20 mg tablet 40 mg PO DAILY 03/24/25 03/24/25 rosuvastatin 40 mg tablet 40 mg PO BEDTIME 03/24/25 03/24/25 spironolactone 25 mg tablet 25 mg PO DAILY 03/24/25 03/24/25 Previous Rx's ?Medication ?Instructions ?Recorded albuterol sulfate 90 mcg/actuation 2 puff inhalation Q6H PRN 01/05/25 aerosol inhaler shortness of breath or wheezing #8.5 grams benzonatate 100 mg capsule 100 mg PO TID PRN cough #30 caps 04/26/25 cefuroxime axetil 500 mg tablet 500 mg PO Q12H #14 tabs 03/26/25 doxycycline hyclate 100 mg capsule 100 mg PO BID #14 caps 03/26/25 prednisone 20 mg tablet 20 mg PO DAILY #3 tabs 03/26/25 Allergies Allergy/AdvReac Type Severity Reaction Status Date / Time adhesive [ADHESIVE] Allergy Intermediate RASH, Verified 04/02/25 11:49 BLISTERS atenolol [Atenolol] Allergy Mild RASH Verified 04/02/25 11:49 sotalol [Sotalol] Allergy Mild RASH Verified 04/02/25 11:49 atorvastatin [From Lipitor] AdvReac Mild SEVERE Verified 04/02/25 11:49 ACHES AND PAINS Review of Systems 2 Constitutional: Constitutional: Reports no additional constitutional complaints Cardiovascular: Cardiovascular: Denies chest pain and Denies dyspnea Respiratory: Respiratory: Denies dyspnea FORMERLY [facility], [facility] Past Medical History Attestation statement: The following information was validated with the patient. Medical History Near syncope Leukopenia Atrial fibrillation HTN (hypertension) Surgical History History of cholecystectomy Aortic valve replaced Social History Social History Household Members: Spouse Housing: House Do you presently have visiting nurse or other home services: No Alcohol intake: current Alcohol intake frequency: holidays/special occasions only Alcohol type: wine and hard liquor Comment: refused bed alarm Patient Tobacco Use Status: Never used Tobacco Smoked in Last 30 Days: No Use of substances other than those prescribed or required for medical reasons: No Advance Directives: No Advance Directives Information Provided: Yes service: No Current occupational status: retired Physical Exam 2 Vital Signs: Vital Signs: Last Vital Signs Temp 97.7 F 04/02/25 11:35 Pulse 66 04/02/25 13:04 Resp 11 L 04/02/25 12:42 BP 131/58 L 04/02/25 13:04 Pulse Ox 98 04/02/25 12:42 O2 Del Method Room Air 04/02/25 12:42 BMI result Body Mass Index 26.9 Const: General: cooperative, comfortable and no acute distress O rientation/consciousness: patient oriented x3 HEENT: Head: Yes normal to inspection Face and sinus: Yes normal facial exam Mouth: Normal oral and palatal mucosa present Throat: Yes posterior oropharynx normal Neck: Neck: Yes normal visual inspection Chest: Chest palpation & inspection: normal inspection of the chest Resp: Effort & Inspection: normal respiratory effort Auscultation: clear to auscultation bilaterally Cardio: Jugular venous distension: no JVD Rhythm: abnormal rhythm GI: Inspection: Yes normal to inspection Palpation (GI): Soft to palpation, not firm and nontender Neuro: General: patient oriented x3 Cranial nerves: Yes CN's II-XII intact bilaterally Course Reevaluation(s) Reevaluation #1: I performed a POCUS heart ultrasound no pericardial effusion and good wall motion Time: 12:32 Reevaluation #2: Re-examined min patient is normotensive blood pressure is 130/58 is asymptomatic we will observe another couple of hours he remained stable we will discharge from the hospital most likely was volume depleted at the time of discharge is furosemide was doubled. Time: 13:44 Reevaluation #3: Remained asymptomatic and normotensive Time: 14:45 Medications Administered Discontinued Medications Generic Name Dose Route Start Last Admin Trade Name Freq PRN Reason Stop Dose Admin Lactated Ringer's 1,000 mls @ 999 mls/hr 04/02/25 12:00 04/02/25 12:38 Lr IV 04/02/25 13:00 Infused .Q1H1M [place]INO Infusion Lactated Ringer's 1,000 mls @ 999 mls/hr 04/02/25 12:45 04/02/25 13:42 Lr IV 04/02/25 13:45 Infused .Q1H1M [place]INO Infusion Medical Decision Making Medical Decision Making [facility] Narrative: Patient is here with new syncopal episode found to be hypotensive we will check labs electrocardiogram 16:30 the patient is doing better clinically INR is 1.7 he has a mechanical valve at this point we will admit the patient IV fluids serial troponin bridge with Lovenox discussed with user interface engineer Differential Diagnosis Differential Diagnoses: The differential diagnosis associated with the presentation includes Anemia/dehydration/ACS Admission/Observation Consideration of admission/observation: Escalation of care including admission/observation considered Consult Healthcare Provider Management of the patient was discussed with: [place] 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 04/02/25 11:48 04/02/25 11:48 Labs: Lab Results 04/02/25 04/02/25 Range/Units 11:48 12:50 WBC 6.2 (4.8-10.8) X10*3/uL RBC 3.06 L (4.60-5.80) X10*6/uL Hgb 9.4 L (14.0-18.0) g/dl Hct 28.6 L (42.0-52.0) % MCV 93.5 (80.0-98.0) fL MCH 30.7 (27.0-33.0) pg MCHC 32.9 (31.0-36.0) g/dl RDW 23.5 H (11.0-16.0) % Plt Count 163 (160-400) X10*3/uL MPV 11.1 (9.4-12.4) fL Immature Gran % (Auto) 1.1 H (0.0-0.4) % Neut % (Auto) 25.4 L (45-73) % Lymph % (Auto) 34.1 (20-40) % [place] % (Auto) 38.2 H (2-11) % Eos % (Auto) 1.0 (0-4) % Baso % (Auto) 0.2 (0-2) % Lymph # (Auto) 2.1 (1.2-4.9) X10*3/uL [place] # (Auto) 2.4 H (0.1-1.2) X10*3/uL Eos # (Auto) 0.1 (0.0-0.4) X10*3/uL Baso # (Auto) 0.0 (0.0-0.2) X10*3/uL Abs Immat Gran (auto) 0.07 H (0.00-0.03) X10*3/uL Absolute Neuts (auto) 1.6 L (2.0-8.3) x10*3/uL Absolute Nucleated RBC 0.020 H (0.0-0.012) X10*3/uL Nucleated RBC % (auto) 0.3 H (0.0-0.2) /100WBC Smear Tech's Comments VERIFIED PT 20.1 H D (10.9-12.4) SEC INR 1.7 H (0.9-1.1) Sodium 141 (135-145) mmol/L Potassium 4.3 (3.3-5.1) mmol/L Chloride 99 (96-108) mmol/L Carbon Dioxide 34 H (22-29) mmol/L Anion Gap 12 (12-20) BUN 30 H (9-16) mg/dL Creatinine 1.22 (0.5-1.4) mg/dL Estim Creat Clear Calc 51.7 Estimated GFR 56 Random Glucose 111 (60-115) mg/dL Lactic Acid 1.2 (0.5-2.0) mmol/L Calcium 9.2 (8.4-10.2) mg/dL Magnesium 2.1 (1.6-2.6) mg/dL Total Bilirubin 1.1 H (0.0-1.0) mg/dL AST 34 (5-37) U/L ALT 24 (0-40) U/L Alkaline Phosphatase 60 (39-117) U/L Troponin I High Sens 27.8 (<3.5-35.0) ng/L B-Natriuretic Peptide 86 (<100) pg/mL Total Protein 6.6 (6.5-8.0) g/dL Albumin 3.8 (3.5-5.0) g/dL Influenza Type A (PCR) NEGATIVE (Negative) Influenza Type B (PCR) NEGATIVE (Negative) RSV RNA Qual (PCR) NEGATIVE (Negative) SARS-CoV-2 RNA (RT-PCR) NEGATIVE (Negative) Independent Interpretation I performed an independent interpretation of an: EKG (no ischemia A fib rate 62) and Plain X-Ray Interpretation: NAD Radiology Impression Discussion of test interpretation with radiology: I have reviewed the radiologist's reading. Critical Care Time Critical Care Time Critical Care Time: Yes Total Critical Care Time: 60 Attestation: hypotension requiring IV fluids monitor ,multiple rexamination Discharge Plan Discharge Clinical Impression: Acute hypotension, Subtherapeutic international normalized ratio (INR) Patient Disposition: Admitted As Inpatient Print Language: Sami
[2025-04-02 12:20] LABS: Alanine Aminotransferase 24 U/L (0-40); Albumin Level 3.8 g/dL (3.5-5.0); Anion Gap 12 (12-20); Aspartate Amino Transferase 34 U/L (5-37); Bilirubin Total 1.1 mg/dL (0.0-1.0); Blood Urea Nitrogen 30 mg/dL (9-16); Calcium 9.2 mg/dL (8.4-10.2); Carbon Dioxide 34 mmol/L (22-29); Chloride 99 mmol/L (96-108); Creatinine Clr Calc Pharmacy 51.7; Estimated Glomerular Filt Rate 56; Glucose Random 111 mg/dL (60-115); Magnesium 2.1 mg/dL (1.6-2.6); Potassium 4.3 mmol/L (3.3-5.1); Sodium 141 mmol/L (135-145); Total Protein 6.6 g/dL (6.5-8.0)
[2025-04-02 12:22] LABS: Troponin-I High Sensitivity 27.8 ng/L (<3.5-35.0)
[2025-04-02 12:37] LABS: SLIDE REVIEW VERIFIED
[2025-04-02 12:41] LABS: Influenza A PCR NEGATIVE (Negative); Influenza B PCR NEGATIVE (Negative); Resp Syncy Virus RNA Qual PCR NEGATIVE (Negative); SARS COV2 PCR INHOUSE NEGATIVE (Negative)
[2025-04-02 13:08] LABS: INTERNATIONAL NORM RATIO 1.7 (0.9-1.1); Prothrombin Time 20.1 SEC (10.9-12.4)
[2025-04-02 13:12] LABS: Alkaline Phosphatase 60 U/L (39-117)
[2025-04-02 14:46] LABS: B Type Natriuretic Peptide 86 pg/mL (<100)
[2025-04-02 16:48] LABS: Appearance Urine Clear; Color Urine Yellow; Glucose Urine UA Negative (Negative); Leukocyte Esterase Urine Negative (Negative); Nitrite Urine Negative (Negative); PH 7.5 (5.0-9.0); UMIC TRIGGER UACC YES; Urine Blood Trace (Negative); Urine Ketones Negative (Negative); Urine Protein 30 (1+) mg/dL (Neg-Trace)
[2025-04-02] MEDS: Enoxaparin Sodium 100 MG/ML SYRINGE SUBCUT (16:48)
[2025-04-02 17:00] LABS: Bacteria Urine None Seen (None Seen); Hyaline Casts Urine 0-2 /LPF (0-2); RBC Urine 0-2 /HPF (0-2); Squamous Epithelial Cell Urine 0-2 /HPF (0-2); WBC Urine 0-5 /HPF (0-5)
[2025-04-02 17:02] LABS: Troponin-I High Sensitivity 21.5 ng/L (<3.5-35.0)
--- NOTE | 2025-04-02 17:02 | PC.NURSE ---
Attending at bedside.
[2025-04-02 17:15] LABS: Hematocrit 27.7 % (42.0-52.0); Hemoglobin 9.3 g/dl (14.0-18.0); Mean Corpuscular HGB Conc 33.6 g/dl (31.0-36.0); Mean Corpuscular Volume 92.3 fL (80.0-98.0); Mean Platelet Volume 11.2 fL (9.4-12.4); Platelet Count 159 X10*3/uL (160-400); Red Cell Distribution Width 23.6 % (11.0-16.0); White Blood Count 7.1 X10*3/uL (4.8-10.8)
[2025-04-02 17:22] LABS: INTERNATIONAL NORM RATIO 1.7 (0.9-1.1); Prothrombin Time 20.1 SEC (10.9-12.4)
[2025-04-02 17:25] LABS: Partial Thromboplastin Time 28.8 SEC (26.0-36.8)
--- NOTE | 2025-04-02 17:30 | P.HPHOSP_ITS ---
History of Present Illness Date of Service: 04/02/25 Chief Complaint: Dizziness 89 years old male presented to the emergency department with a chief complaint of dizziness he described the dizziness as lightheadedness near syncopal, he was found to be hypotensive in triage with a blood pressure 68/40. He denies any chest pain shortness of breath fever chills. He was hospitalized on March 24 discharged on March 26 with pneumonia ,he has history of paroxysmal atrial fibrillation, mechanical aortic valve on warfarin, anemia Guillain-[place]. Volume repleted with lactated Ringer's x2 L with normalization of his pressure. Patient's INR found to be 1.7 in the backdrop of the mechanical valve. He will be admitted for Lovenox bridge pending INR in a.m. Review of Systems 2 Review of Systems: Denies chest pain Denies shortness of breath Denies nausea vomiting diarrhea Denies fever chills [facility] Medical History (Updated 04/02/25 @ 17:36 by Cheo Ramos DO) HTN (hypertension) Near syncope Leukopenia Atrial fibrillation Surgical History History of cholecystectomy Aortic valve replaced Social History Household Members: Spouse Housing: House Do you presently have visiting nurse or other home services: No Alcohol intake: current Alcohol intake frequency: holidays/special occasions only Alcohol type: wine and hard liquor Comment: refused bed alarm Patient Tobacco Use Status: Never used Tobacco Smoked in Last 30 Days: No Use of substances other than those prescribed or required for medical reasons: No Advance Directives: No Advance Directives Information Provided: Yes service: No Current occupational status: retired Meds Allergies Allergy/AdvReac Type Severity Reaction Status Date / Time adhesive [ADHESIVE] Allergy Intermediate RASH, Verified 04/02/25 11:49 BLISTERS atenolol [Atenolol] Allergy Mild RASH Verified 04/02/25 11:49 sotalol [Sotalol] Allergy Mild RASH Verified 04/02/25 11:49 atorvastatin [From Lipitor] AdvReac Mild SEVERE Verified 04/02/25 11:49 ACHES AND PAINS Active Medications: Current Medications Acetaminophen (Acetaminophen 325 Mg Tablet) 650 mg PO Q6H PRN PRN Reason: Pain, Mild 1-3,fever,headache Calcium Carbonate (Calcium Carbonate 750 Mg Tab.Chew) 750 mg PO Q4H PRN PRN Reason: Heartburn Enoxaparin Sodium (Enoxaparin Sodium 100 Mg/Ml Syringe) 100 mg 1 mg/kg (100 mg) SUBCUT Q12H [facility] Magnesium Hydroxide (Milk Of Magnesia 30 Ml Oral.Susp) 30 ml PO DAILY PRN PRN Reason: Constipation Melatonin (Melatonin 3 Mg Tablet) 6 mg PO BEDTIME PRN PRN Reason: Insomnia Ondansetron HCl (Ondansetron Hcl 4 Mg/2 Ml Vial) 4 mg IVPUSH Q8H PRN PRN Reason: Nausea and Vomiting Sodium Chloride (0.9 % Sodium Chloride Flush 3 Ml Syringe) 3 ml IVFLUSH QSHIFT [facility] Home Medications ?Medication ?Instructions ?Recorded ?Confirmed ?Last Taken ?Type acebutolol 200 mg capsule 200 mg PO BEDTIME 04/17/21 03/24/25 03/23/25 History acebutolol 200 mg capsule 400 mg PO DAILY 04/17/21 03/24/25 03/23/25 History doxazosin 4 mg tablet 4 mg PO DAILY 04/17/21 03/24/25 03/23/25 History warfarin 4 mg tablet 4 mg PO DAILY@1800 11/02/21 03/24/25 03/23/25 History furosemide 40 mg tablet 40 mg PO DAILY@17003/24/25 03/24/25 03/23/25 History furosemide 40 mg tablet 80 mg PO DAILY 03/24/25 03/24/25 03/23/25 History lisinopril 20 mg tablet 20 mg PO DAILY@1700 03/24/25 03/24/25 03/23/25 History lisinopril 20 mg tablet 40 mg PO DAILY 03/24/25 03/24/25 03/23/25 History rosuvastatin 40 mg tablet 40 mg PO BEDTIME 03/24/25 03/24/25 03/23/25 History spironolactone 25 mg tablet 25 mg PO DAILY 03/24/25 03/24/25 03/23/25 History Physical Exam 2 Vital Signs and Narrative: Vital Signs: Last Vital Signs Temp 97.7 F 04/02/25 11:35 Pulse 66 04/02/25 13:04 Resp 11 L 04/02/25 12:42 BP 131/58 L 04/02/25 13:04 Pulse Ox 98 04/02/25 12:42 O2 Del Method Room Air 04/02/25 12:42 BMI result Body Mass Index 26.9 Const: Other: Awake alert oriented x3 no acute distress Resp: Other: Clear to auscultation bilaterally no rales rhonchi or wheezes Cardio: Other: No S4; positive S1-S2; no S3 mechanical click heard GI: Other: Soft nontender nondistended normoactive bowel sounds Extrem: Other: No edema bilaterally Results Labs 04/02/25 16:57 04/02/25 11:48 Labs: Laboratory Results - last 24 hr 04/02/25 04/02/25 04/02/25 11:48 12:50 16:31 MCV 93.5 MCH 30.7 MCHC 32.9 RDW 23.5 H Plt Count 163 MPV 11.1 Immature Gran % (Auto) 1.1 H Neut % (Auto) 25.4 L Lymph % (Auto) 34.1 [place] % (Auto) 38.2 H Eos % (Auto) 1.0 Baso % (Auto) 0.2 Lymph # (Auto) 2.1 [place] # (Auto) 2.4 H Eos # (Auto) 0.1 Baso # (Auto) 0.0 Abs Immat Gran (auto) 0.07 H Absolute Neuts (auto) 1.6 L Absolute Nucleated RBC 0.020 H Nucleated RBC % (auto) 0.3 H Smear Tech's Comments VERIFIED PT 20.1 H D INR 1.7 H Anion Gap 12 Estim Creat Clear Calc 51.7 Estimated GFR 56 Random Glucose 111 Lactic Acid 1.2 Calcium 9.2 Magnesium 2.1 Total Bilirubin 1.1 H AST 34 ALT 24 Alkaline Phosphatase 60 B-Natriuretic Peptide 86 Total Protein 6.6 Albumin 3.8 Urine Color Yellow Urine Appearance Clear Urine pH 7.5 Ur Specific [place] 1.010 Urine Protein 30 (1+) H Urine Glucose (UA) Negative Urine Ketones Negative Urine Blood Trace H Urine Nitrite Negative Ur Leukocyte Esterase Negative Urine RBC 0-2 Urine WBC 0-5 Ur Squamous Epith Cells 0-2 Urine Bacteria None Seen Hyaline Casts 0-2 Influenza Type A (PCR) NEGATIVE Influenza Type B (PCR) NEGATIVE RSV RNA Qual (PCR) NEGATIVE SARS-CoV-2 RNA (RT-PCR) NEGATIVE 04/02/25 16:57 MCV 92.3 MCH 31.0 MCHC 33.6 RDW 23.6 H Plt Count 159 L MPV 11.2 Immature Gran % (Auto) Neut % (Auto) Lymph % (Auto) [place] % (Auto) Eos % (Auto) Baso % (Auto) Lymph # (Auto) [place] # (Auto) Eos # (Auto) Baso # (Auto) Abs Immat Gran (auto) Absolute Neuts (auto) Absolute Nucleated RBC 0.000 Nucleated RBC % (auto) 0.0 Smear Tech's Comments PT INR Anion Gap Estim Creat Clear Calc Estimated GFR Random Glucose Lactic Acid Calcium Magnesium Total Bilirubin AST ALT Alkaline Phosphatase B-Natriuretic Peptide Total Protein Albumin Urine Color Urine Appearance Urine pH Ur Specific [place] Urine Protein Urine Glucose (UA) Urine Ketones Urine Blood Urine Nitrite Ur Leukocyte Esterase Urine RBC Urine WBC Ur Squamous Epith Cells Urine Bacteria Hyaline Casts Influenza Type A (PCR) Influenza Type B (PCR) RSV RNA Qual (PCR) SARS-CoV-2 RNA (RT-PCR) Assessment and Plan (1) Subtherapeutic international normalized ratio (INR): Status: Acute (2) Near syncope: Status: Acute (3) Atrial fibrillation: Qualifiers: Atrial fibrillation type: persistent (not longstanding) Qualified Code(s): I48.19 - Other persistent atrial fibrillation Status: Acute Plan 89-year-old male presents today after a near syncopal episode and found to have a blood pressure of 60/40. Patient notes his Lasix was doubled proximally 1 week ago. He was resuscitated with 2 L of lactated ringer with normalization of his blood pressure. Found to have a subtherapeutic INR of 1.7 in the backdrop of mechanical valve. 1. Subtherapeutic INR in backdrop of mechanical valve -Lovenox 100 mg given in the emergency room; we will schedule 100 mg for the a.m. -repeat INR in a.m. -continue Lovenox bridge until INR 2.5-3.5 2. Near syncope/hypotension -resolved with volume repletion -hold antihypertensive overnight 3. Atrial fibrillation (persistent) -acceptable control on current therapies -Lovenox bridge/warfarin -adjust therapies as clinically indicated Full code Lovenox Patient will be admitted for 1 night stay for a Lovenox bridge pending INR at goal of 2.5-3.5 Quality Stroke Does the patient have a stroke diagnosis?: No VTE Prior VTE?: No VTE Risk Level:: Medical - moderate - high VTE Device Contraindication: Treatment Not Indicated VTE Drug Contraindication: N/A - Med Ordered
--- NOTE | 2025-04-02 18:27 | PHA.MEDREC ---
Addendum entered by Grazyna Stanley RP 04/02/25 18:39: [facility] REVIEWED Original Note: Pharmacy Consult ? Medication Reconciliation Pharmacy has completed the medication reconciliation. Spoke to pt to confirm meds. Per pt, no longer taking benzonatate and only has 1 dose left of doxycycline + cefuroxime.
[2025-04-02] MEDS: Lactated Ringers 1,000 ML 100 ML IVCONT (18:48)
[2025-04-02] MEDS: Atorvastatin Calcium 80 MG TABLET PO (22:23)
[2025-04-02] MEDS: Warfarin Sodium 4 MG TABLET PO (23:03)
[2025-04-03 03:42] VITALS: BP 135/71; PULSE 66; RESP 16; TEMP 36.4; O2SAT 95
[2025-04-03] MEDS: Lactated Ringers 1,000 ML 100 ML IVCONT (04:27)
[2025-04-03] MEDS: Enoxaparin Sodium 100 MG/ML SYRINGE SUBCUT (06:29)
[2025-04-03 07:15] VITALS: BP 142/65; PULSE 64; RESP 17; TEMP 36.6; O2SAT 97
[2025-04-03 07:35] LABS: INTERNATIONAL NORM RATIO 1.9 (0.9-1.1); Prothrombin Time 21.7 SEC (10.9-12.4)
--- NOTE | 2025-04-03 08:01 | MHC.CM.PN ---
CM met with Patient at bedside and addressed MONTEZ with him, providing Patient with the original and a copy has been placed on the chart. Patient lives in a house with his /HCP/Jennifer, who will transport home at time of dc. Home self care is Patient's goal (he checks his INR @ home) and CM has initiated and will follow for dc planning. PCP is Dr. Milton Durán.
[2025-04-03 08:48] LABS: Hematocrit 26.3 % (42.0-52.0); Hemoglobin 8.7 g/dl (14.0-18.0); Mean Corpuscular HGB Conc 33.1 g/dl (31.0-36.0); Mean Corpuscular Hemoglobin 30.7 pg (27.0-33.0); Mean Corpuscular Volume 92.9 fL (80.0-98.0); Mean Platelet Volume 11.5 fL (9.4-12.4); Platelet Count 135 X10*3/uL (160-400); Red Blood Count 2.83 X10*6/uL (4.60-5.80); Red Cell Distribution Width 23.7 % (11.0-16.0); White Blood Count 5.1 X10*3/uL (4.8-10.8)
--- NOTE | 2025-04-03 09:28 | P.DS_ITS ---
DS: Providers Provider Date of Service: 04/03/25 Date of admission: 04/02/25 16:48 Date of discharge: 04/03/25 Primary care physician: Milton Durán MD DS: Diagnosis Discharge Diagnosis (1) Subtherapeutic international normalized ratio (INR): Status: Acute (2) Near syncope: Status: Acute (3) Atrial fibrillation: Status: Acute DS: Summary Hospital Course Hospital Course: Chief Complaint: Dizziness 89 years old male presented to the emergency department with a chief complaint of dizziness he described the dizziness as lightheadedness near syncopal, he was found to be hypotensive in triage with a blood pressure 68/40. He denies any chest pain shortness of breath fever chills. 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 Volume repleted with lactated Ringer's x2 L with normalization of his pressure. Patient's INR found to be 1.7 in the backdrop of the mechanical valve. He will be admitted for Lovenox bridge pending INR in a.m. Hospital course: Patient presented with dizziness and foun to be hypotensive, he takes multiple BP meds including lisinopril 40 in am , 20 pm, lasix 80 in 40 pm, acetebulol 400 mg in am and 200 at bedtime, aldactone 25 mg daily and doxason. BP improved with meds on hold and IVF. Retarting meds with metoprolol 50 mg bid or equivalent in acetabulol, lisinopril 10 mg daily to continue aldactone, and Lasix 40 mg bid. He does self-monitoring of INR at home and advise to adjust coumadin to 5 today and reach out to [facility] for further advise and adjustment Time Attestation Discharge Coordination Time (in mins): 40 Quality: Safe Use of Opioids Does Pt have an Active Cancer Diagnosis on the Problem List?: No Quality: Stroke Does the patient have a stroke diagnosis?: No Physical Exam Vital Signs: Vital Signs: Last Vital Signs Temp 98 F 04/03/25 07:15 Pulse 64 04/03/25 07:15 Resp 17 04/03/25 07:15 BP 142/65 H 04/03/25 07:15 Pulse Ox 97 04/03/25 07:15 O2 Del Method Room Air 04/03/25 07:15 BMI result Body Mass Index 26.9 DS: Data Data Completed and Pending Completed studies during hospitalization [Text1]: Procedures Introduction of Remdesivir Anti-infective into Peripheral Vein, Percutaneous Approach, [employer] 5 (11/02/21) Transfusion of Nonautologous Globulin into Peripheral Vein, Percutaneous Approach (01/10/25) Labs on day of discharge: Laboratory Results - last 24 hr 04/02/25 04/02/25 04/02/25 11:48 12:50 16:31 WBC 6.2 RBC 3.06 L Hgb 9.4 L Hct 28.6 L MCV 93.5 MCH 30.7 MCHC 32.9 RDW 23.5 H Plt Count 163 MPV 11.1 Immature Gran % (Auto) 1.1 H Neut % (Auto) 25.4 L Lymph % (Auto) 34.1 [place] % (Auto) 38.2 H Eos % (Auto) 1.0 Baso % (Auto) 0.2 Lymph # (Auto) 2.1 [place] # (Auto) 2.4 H Eos # (Auto) 0.1 Baso # (Auto) 0.0 Abs Immat Gran (auto) 0.07 H Absolute Neuts (auto) 1.6 L Absolute Nucleated RBC 0.020 H Nucleated RBC % (auto) 0.3 H Smear Tech's Comments VERIFIED PT 20.1 H D INR 1.7 H APTT Sodium 141 Potassium 4.3 Chloride 99 Carbon Dioxide 34 H Anion Gap 12 BUN 30 H Creatinine 1.22 Estim Creat Clear Calc 51.7 Estimated GFR 56 Random Glucose 111 Lactic Acid 1.2 Calcium 9.2 Magnesium 2.1 Total Bilirubin 1.1 H AST 34 ALT 24 Alkaline Phosphatase 60 Troponin I High Sens 27.8 21.5 B-Natriuretic Peptide 86 Total Protein 6.6 Albumin 3.8 Urine Color Yellow Urine Appearance Clear Urine pH 7.5 Ur Specific [place] 1.010 Urine Protein 30 (1+) H Urine Glucose (UA) Negative Urine Ketones Negative Urine Blood Trace H Urine Nitrite Negative Ur Leukocyte Esterase Negative Urine RBC 0-2 Urine WBC 0-5 Ur Squamous Epith Cells 0-2 Urine Bacteria None Seen Hyaline Casts 0-2 Influenza Type A (PCR) NEGATIVE Influenza Type B (PCR) NEGATIVE RSV RNA Qual (PCR) NEGATIVE SARS-CoV-2 RNA (RT-PCR) NEGATIVE 04/02/25 04/03/25 04/03/25 16:57 07:05 07:57 WBC 7.1 5.1 RBC 3.00 L 2.83 L Hgb 9.3 L 8.7 L Hct 27.7 L 26.3 L MCV 92.3 92.9 MCH 31.0 30.7 MCHC 33.6 33.1 RDW 23.6 H 23.7 H Plt Count 159 L 135 L MPV 11.2 11.5 Immature Gran % (Auto) Neut % (Auto) Lymph % (Auto) [place] % (Auto) Eos % (Auto) Baso % (Auto) Lymph # (Auto) [place] # (Auto) Eos # (Auto) Baso # (Auto) Abs Immat Gran (auto) Absolute Neuts (auto) Absolute Nucleated RBC 0.000 0.000 Nucleated RBC % (auto) 0.0 0.0 Smear Tech's Comments PT 20.1 H 21.7 H INR 1.7 H 1.9 H APTT 28.8 D Sodium Potassium Chloride Carbon Dioxide Anion Gap BUN Creatinine Estim Creat Clear Calc Estimated GFR Random Glucose Lactic Acid Calcium Magnesium Total Bilirubin AST ALT Alkaline Phosphatase Troponin I High Sens B-Natriuretic Peptide Total Protein Albumin Urine Color Urine Appearance Urine pH Ur Specific [place] Urine Protein Urine Glucose (UA) Urine Ketones Urine Blood Urine Nitrite Ur Leukocyte Esterase Urine RBC Urine WBC Ur Squamous Epith Cells Urine Bacteria Hyaline Casts Influenza Type A (PCR) Influenza Type B (PCR) RSV RNA Qual (PCR) SARS-CoV-2 RNA (RT-PCR) Discharge Plan Discharge Anticipated Discharge Date/Time: 04/03/25 10:17 Patient Disposition: Home, Self-Care Referrals: Milton Durán MD [Primary Care Provider] - 1 Week Discharge Medications: New metoprolol tartrate 50 mg Tablet 50 mg PO BID Qty: 180 0RF lisinopril 10 mg Tablet 10 mg PO DAILY Qty: 90 0RF Protocol: Hold for SBP< HOLD for SBP < : 90 warfarin 1 mg tablet 1 mg PO DAILY Qty: 60 0RF Continued doxazosin 4 mg tablet 4 mg PO BEDTIME warfarin 4 mg tablet 4 mg PO DAILY@1800 spironolactone 25 mg tablet 25 mg PO DAILY rosuvastatin 40 mg tablet 40 mg PO BEDTIME cefuroxime axetil 500 mg tablet 500 mg PO Q12H Qty: 14 0RF Rx Instructions: END: 04/03@0859 doxycycline hyclate 100 mg capsule 100 mg PO BID Qty: 14 0RF Rx Instructions: END: 04/03@0859 albuterol sulfate 90 mcg/actuation HFA aerosol inhaler 2 puff inhalation Q6H PRN (Reason: shortness of breath or wheezing) Qty: 8.5 0RF Changed furosemide 40 mg tablet 40 mg PO BID Qty: 90 0RF Discontinued acebutolol 200 mg capsule 400 mg PO DAILY acebutolol 200 mg capsule 200 mg PO BEDTIME furosemide 40 mg tablet 80 mg PO DAILY lisinopril 20 mg tablet 40 mg PO DAILY lisinopril 20 mg tablet 20 mg PO DAILY@1700 Discharge Orders: Discharge Order (Routine); Ordered 04/03/25 Ordered By: Lonnie Last Diet: Advance to usual diet Activity on Discharge: As tolerated Stand Alone Forms: Patient Portal Discharge page Print Language: Trinidadian Care Plan Goals: prevent dizziness, and syncope from shift in blood pressure Health Concerns: Hypotension due to blood pressure meds Plan of Treatment: Lasix dose changed to 40 mg twice daily lisinopril dose reduced to 10 mg daily Acebutolol is stopped and replaced with metoprol 50 mg twice daily Check your blood pressure daily Follow up with your Doctor as scheduled this week Take coumadin 5 mg today ( 4mg tab and 1 mg tab) Assessment: see above Discharge Date/Time: 04/03/25 14:33
[2025-04-03 09:58] VITALS: BP 142/65; PULSE 64
[2025-04-03] MEDS: Furosemide 40 MG TABLET PO (09:58)
[2025-04-03] MEDS: Metoprolol Tartrate 50 MG TABLET PO (09:58)
[2025-04-03 11:18] VITALS: BP 103/55; PULSE 62; RESP 17; TEMP 36.6; O2SAT 97
--- NOTE | 2025-04-03 12:34 | MHC.CM.PN ---
Patient has been medically cleared for dc to home today, self care.
== END 2025-04-03 14:33 | disposition home or self-care (01) ==
LOC: HO.ED 16:37 → HO.EDOVER 16:56 → HO.IMC 17:14
PROVIDERS: Nurse Practitioner Family; Admitting Provider Hospitalist; Emergency Provider Emergency Medicine; PCP Family Medicine; Visit Provider Internal Medicine
DX: R79.1 Abnormal coagulation profile (principal); R55 Syncope and collapse; I48.0 Paroxysmal atrial fibrillation; R42 Dizziness and giddiness; I10 Essential (primary) hypertension; D64.9 Anemia, unspecified; G61.0 Guillain-Barre syndrome; Z79.899 Other long term (current) drug therapy; Z79.01 Long term (current) use of 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; Z03.818 Encounter for observation for suspected exposure to other biological agents ruled out
CPT/HCPCS: 0241U; 36415; 71045; 80053; 81001; 83605; 83735; 83880; 84484; 85025; 85027; 85610; 85730; 87040; 93005; 96360; 96361; 96372; 99222; 99285; J1650; J7120

== ENCOUNTER → 2025-04-02 11:26 | Outpatient (BNV) | payer MEDICARE, OTHER, SELFPAY | PROVIDERS: Admitting Provider Hospitalist; Emergency Provider Emergency Medicine; PCP Family Medicine; Visit Provider Internal Medicine Cardiovascular Disease | DX: R94.31 Abnormal electrocardiogram [ECG] [EKG] (principal) | CPT/HCPCS: 93010 ==

== ENCOUNTER → 2025-04-02 11:50 | Outpatient (BNV) | payer MEDICARE, OTHER, SELFPAY | PROVIDERS: Emergency Provider Emergency Medicine; PCP Family Medicine; Visit Provider Radiology Diagnostic Radiology | DX: R06.02 Shortness of breath (principal) | CPT/HCPCS: 71045 ==

== ENCOUNTER → 2025-04-02 16:48 | Outpatient (BNV) | payer MEDICARE, OTHER, SELFPAY | PROVIDERS: Admitting Provider Hospitalist; Emergency Provider Emergency Medicine; PCP Family Medicine; Visit Provider Hospitalist | DX: R79.1 Abnormal coagulation profile (principal); R55 Syncope and collapse; I48.19 Other persistent atrial fibrillation | CPT/HCPCS: 99222; 99239 ==

== ENCOUNTER 2025-05-05 07:04 | Outpatient (REF) | payer MEDICARE, OTHER, SELFPAY ==
[2025-05-05 08:06] LABS: Basophils Percent Auto 0.7 % (0-2); Eosinophils Absolute Auto 0.1 X10*3/uL (0.0-0.4); Eosinophils Percent Auto 0.8 % (0-4); Hematocrit 29.6 % (42.0-52.0); Hemoglobin 9.9 g/dl (14.0-18.0); Imm Gran Abs Auto 0.06 X10*3/uL (0.00-0.03); Lymphocytes Absolute Auto 2.4 X10*3/uL (1.2-4.9); Lymphocytes Percent Auto 39.4 % (20-40); MANUAL DIFF FLAG SCAN; Mean Corpuscular HGB Conc 33.4 g/dl (31.0-36.0); Mean Corpuscular Hemoglobin 31.7 pg (27.0-33.0); Mean Corpuscular Volume 94.9 fL (80.0-98.0); Mean Platelet Volume 11.8 fL (9.4-12.4); Monocytes Absolute Auto 1.9 X10*3/uL (0.1-1.2); Monocytes Percent Auto 31.1 % (2-11); Neutrophils Absolute Auto 1.6 x10*3/uL (2.0-8.3); Platelet Count 190 X10*3/uL (160-400); Red Blood Count 3.12 X10*6/uL (4.60-5.80); Red Cell Distribution Width 24.6 % (11.0-16.0); SCAN SMEAR FLAG 1
[2025-05-05 08:31] LABS: Anion Gap 11 (12-20); Blood Urea Nitrogen 16 mg/dL (9-16); Carbon Dioxide 29 mmol/L (22-29); Chloride 103 mmol/L (96-108); Estimated Glomerular Filt Rate > 60; Iron 43 mcg/dL (45-160); Percent Iron Saturation 15 % (15-50); Potassium 4.4 mmol/L (3.3-5.1); Sodium 139 mmol/L (135-145); Total Iron Binding Capacity 294 mcg/dL (228-428); Unsaturated Iron Binding 251 ug/dL
[2025-05-05 08:50] LABS: SLIDE REVIEW VERIFIED
[2025-05-05 09:08] LABS: Folate 10.5 ng/mL (> or = 4.0); Vitamin B12 823 pg/mL (200-900)
== END 2025-05-05 07:05 | disposition home or self-care (01) ==
LOC: HO.LAB 07:04
PROVIDERS: PCP Family Medicine; Visit Provider Family Medicine
DX: I10 Essential (primary) hypertension (principal); D64.9 Anemia, unspecified; E78.00 Pure hypercholesterolemia, unspecified
CPT/HCPCS: 36415; 80051; 82565; 82607; 82746; 83540; 84520; 85025

== ENCOUNTER 2025-05-10 14:44 | Outpatient (AMB) | payer OTHER, SELFPAY ==
--- NOTE | 2025-05-10 15:12 | MHC.OFFVIS ---
Vital Signs 05/10/25 15:22 Height 6 ft 5 in Weight 230 lb 8 oz BMI 27.3 BP 132/62 Blood Pressure Location Lt brachial Position Sitting Pulse 72 Intake Visit Reasons: hip lesion Intake Note: Patient is seen in office for evaluation of a left hip cyst. Pt c/o:onset few yrs, increase in size, lately getting painful, denies discharge, redness, infection, had bx done 3yrs ago at [facility] Personal Care Home Administrator Required: No Accompanied by: Self / Same As Patient Allergies adhesive [ADHESIVE] Allergy (Intermediate, Verified 04/02/25 11:49) RASH, BLISTERS acetaminophen Allergy (Mild, Verified 05/09/25 15:19) Unknown atenolol [Atenolol] Allergy (Mild, Verified 04/02/25 11:49) RASH Opioids - Morphine Analogues Allergy (Mild, Verified 05/09/25 15:19) Unknown oxycodone Allergy (Mild, Verified 05/09/25 15:19) Unknown sotalol [Sotalol] Allergy (Mild, Verified 04/02/25 11:49) RASH tamsulosin Allergy (Mild, Verified 05/09/25 15:19) Unknown tramadol Allergy (Mild, Verified 05/09/25 15:19) Unknown atorvastatin [From Lipitor] Adverse Reaction (Mild, Verified 04/02/25 11:49) SEVERE ACHES AND PAINS Medication List - Last Reconciled 05/10/25 by Paddy Kendall MD albuterol sulfate 90 mcg/actuation 2 puffs inhalation Q6H PRN cefuroxime axetil 500 mg PO Q12H doxazosin 4 mg PO BEDTIME doxycycline hyclate 100 mg PO BID furosemide 40 mg PO BID lisinopril 10 mg See Protocol PO DAILY metoprolol tartrate 50 mg PO BID rosuvastatin 40 mg PO BEDTIME spironolactone 25 mg PO DAILY warfarin 4 mg PO DAILY@1800 warfarin 1 mg PO DAILY HPI Comments Details: 89-year-old male patient with multiple medical problems including atrial fibrillation, hypertension, hypercholesterolemia, status post aortic valve replacement on Coumadin presenting with a large lump located on his left hip. He has had the lump for many years and feels this may have been results of persistent trauma while golfing. He feels the golf cart may have hit his hip at that location repeatedly causing this persistent lump. He previously underwent an ultrasound-guided aspiration at [facility] and was found to have a large collection of old blood which was aspirated. A repeat CT abdomen and pelvis shows a large collection remaining in the left hip for which malignancy could not be ruled out. He presents today to discuss possible excision of this left hip mass. [facility] Medical History (Updated 05/10/25 @ 16:34 by Paddy Kendall MD) Guillain-[place] syndrome HTN (hypertension) Near syncope Leukopenia Atrial fibrillation Surgical History History of cholecystectomy Aortic valve replaced Social History Household Members: Spouse Housing: House Do you presently have visiting nurse or other home services: No Alcohol intake: current Alcohol intake frequency: holidays/special occasions only Alcohol type: wine and hard liquor Comment: refused bed alarm Patient Tobacco Use Status: Never used Tobacco service: No Current occupational status: retired Review of Systems Const All systems reviewed & are unremarkable except as noted in HPI and below Physical Exam Vital Signs: Last Vital Signs Pulse 72 05/10/25 15:22 BP 132/62 05/10/25 15:22 BMI result Body Mass Index 27.3 Const General: no acute distress Nutritional Appearance: well nourished Orientation/consciousness: patient oriented x3 Limitations: no limitations HEENT Head: Yes normocephalic and Yes atraumatic Resp Effort & Inspection: normal respiratory effort, no audible wheezes, no cough and no respiratory distress GI Inspection: Yes normal to inspection Palpation (GI): Soft to palpation and nontender Neuro General: patient oriented x3 Extrem Upper/lower leg/hip images: 1. 12 cm firm, mobile mass at left hip, nontender to palpation. No erythema or discharge. No ecchymosis. Assessment & Plan Assessment & Plan (1) Mass of left hip region: Code(s): R22.42 - Localized swelling, mass and lump, left lower limb Category: Medical Plan 89-year-old male patient with multiple medical problems presenting with a enlarging mass in the left hip. Previous intervention at [facility] seemed to indicate a hematoma with aspiration of a large collection of old blood. No tissue diagnosis was performed at that time. A repeat CAT scan of the abdomen and pelvis performed on revealed a 7.1 x 5.4 cm heterogeneous mass for which neoplastic disease would need to be excluded. On current examination the lesion seems to measure at least 12 cm in diameter. We discussed excision of this large mass as a short-stay surgery under anesthesia. After discussion of the procedure, risks, and alternatives, the patient consents to the surgery. Ideally, his anticoagulation would be held for several days prior to surgery reduce the risk of bleeding postoperatively. Coding Level of Care Code New Pt Level 4 (27137) Diagnoses Mass of left hip region R22.42
[2025-05-10 15:22] VITALS: BP 132/62; PULSE 72; BMI 27.3
--- OUTSIDE RECORDS SUMMARY | 2025-05-10 17:46 | XMS_ITS | Clinical Summary ---
Author Organization [address] [place] [address] [place] [phone] Phone Care Team Providers Care Crm Technical Lead Name Role Phone Milton Durán MD Primary Care Provider [phone] Allergies Active Allergy Reactions Criticality Noted Date [...] pressure should improve. Atrial fibrillation and flutter (CMS/[facility] V24, CM S/[facility] V28) 06/05/2021 Overview (09/27/2024): Atrial fibrillation and flutter Last Assessment & Plan: Does not require rate control medications, has no sign of profound bradycardia. Will continue to monitor clinically. Bicuspid aortic valve 06/05/2021 Overview (09/27/2024): Bicuspid aortic valve Last Assessment & Plan: Status post mechanical AVR. On Coumadin endocarditis prophylaxis. CHF (congestive heart failure) ([facility] V24, [facility] /[facility] V28) 06/05/2021 Overview (09/27/2024): Last Assessment & Plan: Is small volume overloaded with moderate lower extremity edema and dilated IVC with poor collapse. He is on furosemide 80 mg in the morning. I will add additional 40 mg in the afternoon. Will check BMP, magnesium and BNP. Syncope 06/05/2021 Overview (09/27/2024): Syncope Sick sinus syndrome ([facility] V24, [facility] V28) 0 06/05/2021 Overview (09/27/2024): Sick sinus syndrome Social History Tobacco Use Types Packs/Day Years [...] Procedure Name Priority Date/Time Associated Diagnosis Comments COMPREHENSIVE METABOLIC PANEL Routine 01/17/2025 6:19 AM EST Encounter for other general examination correction (current) use of 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 from Last 3 Months or Most Recently Relevant to Health Maintenance Results * (ABNORMAL) Comprehensive metabolic panel (01/17/2025 6:19 AM EST) Sodium 137 133 - 145 mmol/L LAB CHEMISTRY METHOD 01/17/2025 1:53 PM [facility] Potassium 3.9 3.5 - 5.5 mmol/L LAB CHEMISTRY METHOD 01/17/2025 1:53 PM [facility] Chloride 103 96 - 110 mmol/L LAB CHEMISTRY METHOD 01/17/2025 1:53 PM [facility] CO2 32 21 - 32 mmol/L LAB CHEMISTRY METHOD 01/17/2025 1:53 PM [facility] Anion Gap 2(L) 3 - 11 LAB CHEMISTRY METHOD 01/17/2025 1:53 PM [facility] Glucose 77 70 - 100 mg/dL LAB CHEMISTRY METHOD 01/17/2025 1:53 PM [facility] BUN 22 5 - 25 mg/dL LAB CHEMISTRY METHOD 01/17/2025 1:53 PM [facility] Creatinine 0.89 0.70 - 1.30 mg/dL LAB CHEMISTRY METHOD 01/17/2025 1:53 PM [facility] eGFR 82 >=60 mL/min/1. 73m2 LAB CHEMISTRY METHOD 01/17/2025 1:53 PM [facility] Comment:Calculation based on the??Chronic Kidney Disease Epidemiology Collaboration (CKD-EPI) equation refit??without adjustment for race. BUN/Creatinine Ratio 24.7 LAB CHEMISTRY METHOD 01/17/2025 1:53 PM [facility] Calcium 8.2(L) 8.5 - 10.5 mg/dL LAB CHEMISTRY METHOD 01/17/2025 1:53 PM [facility] AST (SGOT) 26 10 - 42 unit/L LAB CHEMISTRY METHOD 01/17/2025 1:53 PM [facility] ALT (SGPT) 23 10 - 60 unit/L LAB CHEMISTRY METHOD 01/17/2025 1:53 PM EST [facility] Alkaline Phosphatase 59 42 - 121 unit/L LAB CHEMISTRY METHOD 01/17/2025 1:53 PM [facility] Total Protein 7.2 6.0 - 8.0 g/dL LAB CHEMISTRY METHOD 01/17/2025 1:53 PM EST [facility] Albumin 2.9(L) 3.2 - 5.0 g/dL LAB CHEMISTRY METHOD 01/17/2025 1:53 PM [facility] Total Bilirubin 0.8 0.0 - 1.4 mg/dL LAB CHEMISTRY METHOD 01/17/2025 1:53 PM [facility] Blood Venous blood specimen / Unknown Venipuncture / Unknown 01/17/2025 6:19 AM EST 01/17/2025 12:22 PM EST us Bonilla Sosa MD LAB BLOOD ORDERABLES Final Res ult [facility] [address] [place] [address], from Last 3 Months or Most Recently Relevant to Health Maintenance Insurance MEDICARE Care Teams Crm Technical Lead Relationship Specialty Start Date End Date Milton Durán MD [address] [place] [address] [place] [address] PCP - General 02/03/18
== END 2025-05-10 15:45 | disposition home or self-care (01) ==
PROVIDERS: PCP Family Medicine; Visit Provider Surgery
DX: R22.42 Localized swelling, mass and lump, left lower limb (principal)
CPT/HCPCS: 99204

== ENCOUNTER 2025-05-23 13:01 | Outpatient (AMB) | payer MEDICARE, OTHER, SELFPAY ==
--- NOTE | 2025-05-23 13:30 | MHC.OFFVISCO ---
Intake Intake Visit Reasons: Anticoagulation Physician Advisor Required: No Allergies adhesive (ADHESIVE) Allergy (Intermediate, Verified 05/23/25 14:36) RASH, BLISTERS acetaminophen Allergy (Mild, Verified 05/23/25 14:36) Unknown atenolol (Atenolol) Allergy (Mild, Verified 05/23/25 14:36) RASH Opioids - Morphine Analogues Allergy (Mild, Verified 05/23/25 14:36) Unknown oxycodone Allergy (Mild, Verified 05/23/25 14:36) Unknown sotalol (Sotalol) Allergy (Mild, Verified 05/23/25 14:36) RASH tamsulosin Allergy (Mild, Verified 05/23/25 14:36) Unknown tramadol Allergy (Mild, Verified 05/23/25 14:36) Unknown atorvastatin (From Lipitor) Adverse Reaction (Mild, Verified 05/23/25 14:36) SEVERE ACHES AND PAINS Medication List - Last Reconciled 05/23/25 by Maria Luz Yost, RN albuterol sulfate 90 mcg/actuation 2 puffs inhalation Q6H PRN cefuroxime axetil 500 mg PO Q12H doxazosin 4 mg PO BEDTIME doxycycline hyclate 100 mg PO BID furosemide 40 mg PO BID lisinopril 10 mg See Protocol PO DAILY metoprolol tartrate 50 mg PO BID rosuvastatin 40 mg PO BEDTIME spironolactone 25 mg PO DAILY warfarin 4 mg See Protocol PO DAILY@1800 warfarin 1 mg See Protocol PO DAILY Nursing Note Pt to [facility] for initial visit. Has been on warfarin 25+ years. He is changing doctors from Milton Durán to Dr Gutierrez and referral was made for [facility]. Pt states he has a POC machine at home and is not sure of the program he uses to report his INR. Medications verified and new admission education packet reviewed with pt. Pt was in a hurry and wanted to skip the education part of this visit as he says he knows the information. Most importantly, pt understands he has to watch for bleeding, be consistent with his diet, notify all providers that he is on warfarin, and to report any new medications to [facility] as soon as he starts them. History reviewed. Risk scores done. INR: 1.9 out of therapeutic range of 2.5-3.5 Diet: pt instructed to avoid greens today Dose: increased today's dose to 5mg then to resume usual dose of 4mg Daily Retest: 05/30/25 Will get pt set up with [employer] and remote patient monitoring Pt verbalizes understanding of instructions given T/C to Dr gutierrez's office. Spoke to Tran. Reported critical INR with dosing plan and next retest date. 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 Education Record Teaching Recipient: Patient What is the easiest way to learn: Reading, Listening, Demonstration and Education Packet List any additional concerns (family/financial etc.): prosthetic right eye Significant other who can be involved in Teaching Process when Indicated: Physician Advisor Required: No Readiness To Learn: Good Teaching Methods: Discussion, Handout, Protocol and Teach Back Response to Teaching: Return Demonstration and Verbalize Understanding Re-Education needs: Reinforce Content Education Intervention/Brief Description of Teaching 1. Able to state reason for taking Warfarin: Yes 2. Able to state Pain Management techniques: Yes 3. Able to state action of Warfarin.: Yes Able to state current dose, pill color, how and when Warfarin to be taken: Yes Able to identify signs of bleeding &/or clotting: Yes 4. Able to identify need to keep diet consistent in regard to vitamin K intake: Yes Able to state restriction on alcohol: Yes 5. Able to state need for compliance with PT/INR testing: Yes Describes rationale for carrying ID and wearing Medic Alert bracelet: Yes Patient instructed to monitor for excess bruising or signs/symptoms of clotting or bleeding: Yes 6. Able to state that there are drugs that interact with Warfin: Yes 7. Able to state the need to seek medical attention when illness/injury occur.: Yes Describes the need to avoid activities with high risk of injury: Yes 8. Able to state duration of treatment: Yes 9. Demonstrates understanding of notifying all providers of pending dental surgical, or other invasive procedures: Yes 10. Able to state Home Care instructions Questionnaires HAS-BLED Does the patient had uncontrolled Hypertension?: No Does the patient have renal disease?: No Does the patient have liver disease?: No Does the patient have a history of stroke?: No Has the patient had major bleeding or predisposition to bleeding?: No Does the patient have labile INRs?: No Is the patient over 65 years of age?: No Is the patient on medications that gives them a predisposition to bleeding?: Yes Does the patient use alcohol?: Yes HAS-BLED Score: 2 CHADSVASC Age: 75 or over Gender: Male Does the patient have a history of CHF?: No Does the patient have a history of Hypertension?: Yes Does the patient have a history of Stroke/TIA/Thromboembolism?: No Does the patient have a history of Vascular Disease (prior NC, PAD or aortic plaque)?: Yes (chronic venous insufficiency, hypercholesterolemia) Does the patient have a history of Diabetes?: No CHADS VACS Score: 4 Nathalie Prediction Score Rsk VTE Active Cancer: No Previous VTE, excluding superficial vein thrombosis: No Reduced mobility: No Already known Thrombophilic Condition: No With-in last month Trauma and/or Surgery: No Elderly 70 year or older: Yes Heart and/or Respiratory Failure: No Acute Myocardial infarction and/or Ischemic Stroke: No Acute Infection and/or Rheumatologic Disorder: No Obesity (BMI 30 or greater): No Ongoing Hormonal Treatment: No Score: 1 Nathalie Score less than 4; Low Risk of VTE Nathalie Score 4 or greater; High Risk of VTE Coding Level of Care Code New Patient Level 2 Diagnoses Current use of anticoagulant therapy Z79.01 Assessment & Plan Assessment & Plan (1) Current use of anticoagulant therapy: Code(s): 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
[2025-05-23 13:35] LABS: Prothrombin Time Whole Bld POC 23.2 sec (11.1-13.5); ~PT, ~INR - Anti Coag Clinic 1.9 (0.9-1.1)
--- OUTSIDE RECORDS SUMMARY | 2025-05-23 14:26 | XMS_ITS | Clinical Summary ---
Author Organization [address] [place] [address] [place] [phone] Phone Care Team Providers Care Instrument Repair Technician Name Role Phone Milton Durán MD Primary Care Provider [phone] Allergies Active Allergy Reactions Criticality Noted Date [...] Coumadin endocarditis prophylaxis. CHF (congestive heart failure) (CMS/[facility] V24, CMS /[facility] V28) 06/05/2021 Overview (09/27/2024): Last Assessment & Plan: Is small volume overloaded with moderate lower extremity edema and dilated IVC with poor collapse. He is on furosemide 80 mg in the morning. I will add additional 40 mg in the afternoon. Will check BMP, magnesium and BNP. Syncope 06/05/2021 Overview (09/27/2024): Syncope Sick sinus syndrome ([facility] V24, CMS/[facility] V28) 0 06/05/2021 Overview (09/27/2024): Sick sinus syndrome Encounters Date Type Department Care Team Description 05/17/[address] [facility] - [facility] [address] [facility] [address] [place] [address] Tanmay Flores MD Pre-op Visit [...] Description 06/14/2025 7:40 AM EDT Office Visit 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) use of 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 from Last 3 Months or Most Recently Relevant to Health Maintenance Results * (ABNORMAL) Comprehensive metabolic panel (01/17/2025 6:19 AM EST) Sodium 137 133 - 145 mmol/L LAB CHEMISTRY METHOD 01/17/2025 1:53 PM [facility] Potassium 3.9 3.5 - [...] [facility] Comment:Calculation based on the Chronic Kidney [...] g/dL LAB CHEMISTRY METHOD 01/17/2025 1:53 PM [facility] Albumin 2.9(L) 3.2 - 5.0 g/dL LAB CHEMISTRY METHOD 01/17/2025 1:53 PM [facility] Total Bilirubin 0.8 0.0 - 1.4 mg/dL LAB CHEMISTRY METHOD 01/17/2025 1:53 PM [facility] Blood Venous blood specimen / Unknown Venipuncture / Unknown 01/17/2025 6:19 AM EST 01/17/2025 12:22 PM EST us Bonilla Sosa MD LAB BLOOD ORDERABLES Final Res ult [facility] [address] [place] [address], [place] [phone] from Last 3 Months or Most Recently Relevant to Health Maintenance Insurance MEDICARE Care Teams Instrument Repair Technician Relationship Specialty Start Date End Date Milton Durán MD [address] [place] [address] Dr [place] [id number] PCP - General 02/03/18
[2025-05-23 14:40] LABS: Prothrombin Time Whole Bld POC 16.6 sec (11.1-13.5); ~PT, ~INR - Anti Coag Clinic 1.4 (0.9-1.1)
== END 2025-05-23 15:00 | disposition home or self-care (01) ==
LOC: HO.ACS 13:02
PROVIDERS: PCP Family Medicine; Visit Provider Internal Medicine Medical Oncology
DX: Z79.01 Long term (current) use of 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 (principal)

== ENCOUNTER → 2025-05-23 13:01 | Outpatient (BNVA) | payer MEDICARE, OTHER, SELFPAY | PROVIDERS: PCP Family Medicine; Visit Provider Internal Medicine Medical Oncology | DX: I48.20 Chronic atrial fibrillation, unspecified (principal); Z95.2 Presence of prosthetic heart valve; Z79.01 Long term (current) use of 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; Z51.81 Encounter for therapeutic drug level monitoring | CPT/HCPCS: 85610; 99202 ==

== ENCOUNTER 2025-05-30 08:59 | Outpatient (AMB) | payer MEDICARE, OTHER, SELFPAY ==
--- OUTSIDE RECORDS SUMMARY | 2025-05-30 09:13 | XMS_ITS | Clinical Summary ---
Author Organization [address] [place] [address] [place] [phone] Phone Care Team Providers Care Addiction Professional Name Role Phone Milton Durán MD Primary Care Provider [phone] Allergies Active Allergy Reactions Criticality Noted Date [...] Coumadin endocarditis prophylaxis. CHF (congestive heart failure) (CMS/[facility] V24, CMS /[facility] V28) 06/05/2021 Overview (09/27/2024): Last Assessment & Plan: Is small volume overloaded with moderate lower extremity edema and dilated IVC with poor collapse. He is on furosemide 80 mg in the morning. I will add additional 40 mg in the afternoon. Will check BMP, magnesium and BNP. Syncope 06/05/2021 Overview (09/27/2024): Syncope Sick sinus syndrome ([facility] V24, CMS/[facility] V28) 0 06/05/2021 Overview (09/27/2024): Sick sinus syndrome Encounters Date Type Department Care Team Description 05/17/2025 Telephone [facility] - [facility] [address] [facility] [address] [place] [address] Tanmay Flores MD Pre-op Visit [...] Description 06/14/2025 7:40 AM EDT Office Visit [facility] - [address] 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
--- NOTE | 2025-05-30 09:28 | MHC.OFFVISCO ---
Intake Intake Visit Reasons: Anticoagulation Allergies adhesive (ADHESIVE) Allergy (Intermediate, Verified 05/30/25 09:10) RASH, BLISTERS acetaminophen Allergy (Mild, Verified 05/30/25 09:10) Unknown atenolol (Atenolol) Allergy (Mild, Verified 05/30/25 09:10) RASH Opioids - Morphine Analogues Allergy (Mild, Verified 05/30/25 09:10) Unknown oxycodone Allergy (Mild, Verified 05/30/25 09:10) Unknown sotalol (Sotalol) Allergy (Mild, Verified 05/30/25 09:10) RASH tamsulosin Allergy (Mild, Verified 05/30/25 09:10) Unknown tramadol Allergy (Mild, Verified 05/30/25 09:10) Unknown atorvastatin (From Lipitor) Adverse Reaction (Mild, Verified 05/30/25 09:10) SEVERE ACHES AND PAINS Medication List - Last Reconciled 05/30/25 by Nakita Baez RN albuterol sulfate 90 mcg/actuation 2 puffs inhalation Q6H PRN doxazosin 4 mg PO BEDTIME furosemide 40 mg PO BID lisinopril 10 mg See Protocol PO DAILY metoprolol tartrate 50 mg PO BID rosuvastatin 40 mg PO BEDTIME spironolactone 25 mg PO DAILY warfarin 4 mg See Protocol PO DAILY@1800 warfarin 1 mg See Protocol PO DAILY Nursing Note INR: 1.9 clinic meter/ 2.0 home meter in therapeutic range 2.5-3.5 Pt has own meter at home he will be trasitioning to [facility] Home POC INR meter program to be able to perform INR at home and [facility] In the mean time he insists in calling in his INR even though he will be coming to the clinic- he is going to check his INR at home on FridayJune 03 so he knows where his INR is and will still come to the clinic on Friday06/06/2025 Medications and supplements reviewed No changes in health, diet, medications, or supplements, Denies any signs and symptoms of bleeding or bruising or clotting. 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 Illness/Depression: No Coding Level of Care Code Est Patient Level 1 Diagnoses Current use of anticoagulant therapy Z79.01 Results AMB INR Fingerstick AMB INR Fingerstick 1.9 Last Edit by Nakita Baez RN on 05/30/25 09:18 manual entry Assessment & Plan Assessment & Plan (1) Current use of anticoagulant therapy: Code(s): Z79.01 - FPC (current) use of 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 Category: Medical
[2025-05-30 10:16] LABS: Prothrombin Time Whole Bld POC 22.6 sec (11.1-13.5); ~PT, ~INR - Anti Coag Clinic 1.9 (0.9-1.1)
== END 2025-05-30 09:36 | disposition home or self-care (01) ==
LOC: HO.ACS 08:59
PROVIDERS: PCP Family Medicine; Visit Provider Internal Medicine Medical Oncology
DX: Z79.01 Long term (current) use of 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 (principal)

== ENCOUNTER → 2025-05-30 08:59 | Outpatient (BNVA) | payer MEDICARE, OTHER, SELFPAY | PROVIDERS: PCP Family Medicine; Visit Provider Internal Medicine Medical Oncology | DX: I48.20 Chronic atrial fibrillation, unspecified (principal); Z95.2 Presence of prosthetic heart valve; Z79.01 Long term (current) use of 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; Z51.81 Encounter for therapeutic drug level monitoring | CPT/HCPCS: 85610; 99211 ==

== ENCOUNTER 2025-06-06 08:05 | Outpatient (AMB) | payer MEDICARE, OTHER, SELFPAY ==
--- OUTSIDE RECORDS SUMMARY | 2025-06-06 08:08 | XMS_ITS | Clinical Summary ---
Author Organization [address] [place] [address] [place] [phone] Phone Care Team Providers Care Receivable Executive Name Role Phone Milton Durán MD Primary Care Provider [phone] Allergies Active Allergy Reactions Criticality Noted Date [...] CHF (congestive heart failure) (CMS/[facility] V24, CMS /[facility] V28) 06/05/2021 Overview (09/27/2024): Last Assessment & Plan: Is small volume overloaded with moderate lower extremity edema and dilated IVC with poor collapse. He is on furosemide 80 mg in the morning. I will add additional 40 mg in the afternoon. Will check BMP, magnesium and BNP. Syncope 06/05/2021 Overview (09/27/2024): Syncope Sick sinus syndrome ([facility] V24, CMS/[facility] V28) 0 06/05/2021 Overview (09/27/2024): Sick sinus syndrome Encounters Date Type Department Care Team Description 05/17/2025 Telephone [facility] - [facility] [address] [facility] [address] [place] [address] Tanmay Flores MD Pre-op Visit [...] Description 06/14/2025 7:40 AM EDT Office Visit [facility] - [address] [facility] [address] [place] [address] Trish Bhardwaj NP [address] [place] [address] Health Maintenance Due Date Last Done Comments [...] - season) 2024 01/04/2021 Influenza Vaccine (#1) 2025 2, 10/04/2021, 08/18/2020, Additional history exists Hypertension/CHF/CAD [...] AM EST Encounter for other general examination snf (current) use of 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 from Last 3 [...] [facility] Comment:Calculation based on the Chronic Kidney Disease Epidemiology Collaboration (CKD-EPI) equation refit without adjustment for race. BUN/Creatinine Ratio 24.7 LAB CHEMISTRY METHOD 01/17/2025 1:53 PM [facility] Calcium 8.2(L) 8.5 - 10.5 mg/dL LAB CHEMISTRY METHOD 01/17/2025 1:53 PM [facility] AST (SGOT) 26 10 [...] MD LAB BLOOD ORDERABLES Final Res ult [facility] [address] [place] [address], [place] [phone] from Last 3 Months or Most Recently Relevant to Health Maintenance Insurance MEDICARE Care Teams Receivable Executive Relationship Specialty Start Date End Date Milton Durán MD [address] [place] [address] [place], [place] [phone] PCP - General 02/03/18
--- OUTSIDE RECORDS SUMMARY | 2025-06-06 08:08 | XMS_ITS | Patient Health Record ---
[facility] Address [address] [place] [address] Care Team Providers Care Roll Shop Supervisor Name Role Phone Milton Durán MD Primary Care Provider UnavailFady Mcfarland Unavailable [phone] Allergies Allergen (clinical drug ingredient) Drug/Non Drug Allergy documented on EMR Reaction Allergy Type Onset Date Status Lipitor Unknown Drug Allergy Active atenolol Atenolol Unknown Drug Allergy Active sotalol Sotalol Unknown Drug Allergy Active Reason For Referral No Information Medications Medication SIG (Take, Route, Frequency, Duration) Notes Start Date End Date Status Ocuvite Active Spironolactone 25 MG 1 tablet Orally; Duration: 30 day(s) Active Rosuvastatin Calcium 40 MG 1 tablet Oral ly Once a day; Duration: 30 day(s) Active Triamcinolone Acetonide Active Acebutolol HCl Activ e Warfarin Sodium 4 MG 1 tablet Orally Onc e a day; Duration: 30 day(s) Active Amoxicillin 500 MG 1 capsule Orally barrett ry 8 hrs; Duration: 5 day(s) Active Celecoxib 200 MG 1 capsule with food Orally Once a day; Duration: 30 day(s) Active Doxazosin Mesylate 4 MG as directed Orally Active Finasteride 5 MG 1 tablet Orally Once a day; Duration: 30 day(s) Active Furosemide 80 MG 1 tablet Orally Once a day; Duration: 30 day(s) Active Lisinopril Active Immunizations Vaccine [...] Problem Acquired hammer toe of right foot ([id number]) Other hammer toe(s) (acquired), right foot (M20.41) Active confirmed Problem Acquired hammer toe of left foot ([id number] 103) Other hammer toe(s) (acquired), left foot [...] Medicare [employer] [address] [facility] [place] [address] [id number] Keegan Fagan Jr Self - patient is the insured [facility] ([facility]) [address] [place] [address] [id number] Keegan Fagan Jr Self - patient is [...]
[2025-06-06 08:11] LABS: Prothrombin Time Whole Bld POC 30.2 sec (11.1-13.5); ~PT, ~INR - Anti Coag Clinic 2.5 (0.9-1.1)
--- NOTE | 2025-06-06 08:19 | MHC.OFFVISCO ---
Intake Intake Visit Reasons: Anticoagulation Allergies adhesive (ADHESIVE) Allergy (Intermediate, Verified 06/06/25 08:14) RASH, BLISTERS acetaminophen Allergy (Mild, Verified 06/06/25 08:14) Unknown atenolol (Atenolol) Allergy (Mild, Verified 06/06/25 08:14) RASH Opioids - Morphine Analogues Allergy (Mild, Verified 06/06/25 08:14) Unknown oxycodone Allergy (Mild, Verified 06/06/25 08:14) Unknown sotalol (Sotalol) Allergy (Mild, Verified 06/06/25 08:14) RASH tamsulosin Allergy (Mild, Verified 06/06/25 08:14) Unknown tramadol Allergy (Mild, Verified 06/06/25 08:14) Unknown atorvastatin (From Lipitor) Adverse Reaction (Mild, Verified 06/06/25 08:14) SEVERE ACHES AND PAINS Medication List - Last Reconciled 06/06/25 by Nakita Baez RN albuterol sulfate 90 mcg/actuation 2 puffs inhalation Q6H PRN doxazosin 4 mg PO BEDTIME furosemide 40 mg PO BID lisinopril 10 mg See Protocol PO DAILY metoprolol tartrate 50 mg PO BID rosuvastatin 40 mg PO BEDTIME spironolactone 25 mg PO DAILY warfarin 4 mg See Protocol PO DAILY@1800 warfarin 1 mg See Protocol PO DAILY Nursing Note INR: 2.5 in therapeutic range 2.5-3.5 PT Tested INR at home on 06/03/25 and stated his INR was 2.5 then also Medications and supplements reviewed No changes in health, diet, medications, or supplements, Denies any signs and symptoms of bleeding or bruising or clotting. 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 Illness/Depression: No Coding Level of Care Code Est Patient Level 1 Diagnoses Current use of anticoagulant therapy Z79.01 Results AMB INR Fingerstick AMB INR Fingerstick 2.5 Last Edit by Nakita Baez RN on 06/06/25 08:13 MANUAL ENTRY Assessment & Plan Assessment & Plan (1) Current use of anticoagulant therapy: Code(s): Z79.01 - snf (current) use of 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 Category: Medical
== END 2025-06-06 08:22 | disposition home or self-care (01) ==
LOC: HO.ACS 08:05
PROVIDERS: PCP Family Medicine; Visit Provider Internal Medicine Medical Oncology
DX: Z79.01 Long term (current) use of 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 (principal)

== ENCOUNTER → 2025-06-06 08:05 | Outpatient (BNVA) | payer MEDICARE, OTHER, SELFPAY | PROVIDERS: PCP Family Medicine; Visit Provider Internal Medicine Medical Oncology | DX: I48.20 Chronic atrial fibrillation, unspecified (principal); Z95.2 Presence of prosthetic heart valve; Z79.01 Long term (current) use of 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; Z51.81 Encounter for therapeutic drug level monitoring | CPT/HCPCS: 85610; 99211 ==

== ENCOUNTER → 2025-06-06 14:05 | Outpatient (BNV) | payer OTHER, SELFPAY | PROVIDERS: Visit Provider Internal Medicine Medical Oncology | DX: D64.9 Anemia, unspecified (principal) | CPT/HCPCS: 99204 ==

== ENCOUNTER 2025-06-13 11:05 | Outpatient (AMB) | payer MEDICARE, OTHER, SELFPAY ==
[2025-06-13 11:13] LABS: Prothrombin Time Whole Bld POC 31.1 sec (11.1-13.5); ~PT, ~INR - Anti Coag Clinic 2.6 (0.9-1.1)
--- NOTE | 2025-06-13 11:27 | MHC.OFFVISCO ---
Intake Intake Visit Reasons: Anticoagulation Allergies adhesive (ADHESIVE) Allergy (Intermediate, Verified 06/13/25 11:06) RASH, BLISTERS acetaminophen Allergy (Mild, Verified 06/13/25 11:06) Unknown atenolol (Atenolol) Allergy (Mild, Verified 06/13/25 11:06) RASH Opioids - Morphine Analogues Allergy (Mild, Verified 06/13/25 11:06) Unknown oxycodone Allergy (Mild, Verified 06/13/25 11:06) Unknown sotalol (Sotalol) Allergy (Mild, Verified 06/13/25 11:06) RASH tamsulosin Allergy (Mild, Verified 06/13/25 11:06) Unknown tramadol Allergy (Mild, Verified 06/13/25 11:06) Unknown atorvastatin (From Lipitor) Adverse Reaction (Mild, Verified 06/13/25 11:06) SEVERE ACHES AND PAINS Medication List - Last Reconciled 06/13/25 by Nakita Baez RN albuterol sulfate 90 mcg/actuation 2 puffs inhalation Q6H PRN doxazosin 4 mg PO BEDTIME furosemide 40 mg PO ONCE lisinopril 10 mg See Protocol PO DAILY metoprolol tartrate 50 mg PO BID rosuvastatin 40 mg PO BEDTIME spironolactone 25 mg PO DAILY warfarin 1 mg See Protocol PO DAILY warfarin 4 mg See Protocol PO DAILY@1800 Nursing Note INR: 2.6 in therapeutic range 2.5-3.5 Medications and supplements reviewed No changes in health, diet, medications, or supplements, * 06/27/25Pt will be having hematoma/cyst evacuation by Dr Kendall 06/27/25 with INr goal 1.5-2.0 - pt states he usually holds warfarin x 5 days for procedures and bridges with lovenox that is ordered by 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 06/30/25 bilat knee aspirations with ortho Denies any signs and symptoms of bleeding or bruising or clotting. 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 Illness/Depression: No Coding Level of Care Code Est Patient Level 1 Diagnoses Current use of anticoagulant therapy Z79.01 Assessment & Plan Assessment & Plan (1) Current use of anticoagulant therapy: Code(s): Z79.01 - manager intermediate (current) use of 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 Category: Medical Medications: Changed From furosemide 40 mg PO BID 90 tabs 0RF To furosemide 40 mg PO ONCE
--- OUTSIDE RECORDS SUMMARY | 2025-06-13 12:08 | XMS_ITS | Clinical Summary ---
Author Organization [address] [place] [address] [place] [phone] Phone Care Team Providers Care Trains Dispatcher Supervisor Name Role Phone Milton Durán MD Primary Care Provider [phone] Allergies Active Allergy Reactions Criticality Noted Date [...] Coumadin endocarditis prophylaxis. CHF (congestive heart failure) (CMS/[facility] V24, CMS /[facility] V28) 06/05/2021 Overview (09/27/2024): Last Assessment & Plan: Is small volume overloaded with moderate lower extremity edema and dilated IVC with poor collapse. He is on furosemide 80 mg in the morning. I will add additional 40 mg in the afternoon. Will check BMP, magnesium and BNP. Syncope 06/05/2021 Overview (09/27/2024): Syncope Sick sinus syndrome ([facility] V24, CMS/[facility] V28) 0 06/05/2021 Overview (09/27/2024): Sick sinus syndrome Encounters Date Type Department Care Team Description 05/17/2025 Telephone [facility] - [facility] [address] [facility] [address] [place] [address] Tanmay Flores MD Pre-op Visit [...] Contact Info) Description 06/14/2025 7:40 AM EDT Consult [facility] [address] 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) use of 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 from Last 3 Months or Most Recently Relevant to Health Maintenance Results * (ABNORMAL) Comprehensive metabolic panel (01/17/2025 6:19 AM EST) Sodium 137 133 - 145 mmol/L LAB CHEMISTRY METHOD 01/17/2025 1:53 PM [facility] Potassium 3.9 3.5 - 5.5 mmol/L LAB CHEMISTRY METHOD 01/17/2025 1:53 PM [facility] Chloride 103 96 - 110 mmol/L LAB CHEMISTRY METHOD 01/17/2025 1:53 PM [facility] CO2 32 21 - 32 mmol/L LAB CHEMISTRY METHOD 01/17/2025 1:53 PM [facility] Anion Gap 2(L) 3 - 11 LAB CHEMISTRY METHOD 01/17/2025 1:53 PM [facility] Glucose 77 70 - 100 mg/dL LAB CHEMISTRY METHOD 01/17/2025 1:53 PM [facility] BUN 22 5 - 25 mg/dL LAB CHEMISTRY METHOD 01/17/2025 1:53 PM [facility] Creatinine 0.89 0.70 - 1.30 mg/dL LAB CHEMISTRY METHOD 01/17/2025 1:53 PM [facility] eGFR 82 >=60 mL/min/1. 73m2 LAB CHEMISTRY METHOD 01/17/2025 1:53 PM [facility] Comment:Calculation based on the Chronic Kidney Disease Epidemiology Collaboration (CKD-EPI) equation refit without adjustment for race. BUN/Creatinine Ratio 24.7 LAB CHEMISTRY METHOD 01/17/2025 1:53 PM [facility] Calcium 8.2(L) 8.5 - 10.5 mg/dL LAB CHEMISTRY METHOD 01/17/2025 1:53 PM [facility] AST (SGOT) 26 10 - 42 unit/L LAB CHEMISTRY METHOD 01/17/2025 1:53 PM [facility] ALT (SGPT) 23 10 - 60 unit/L LAB CHEMISTRY METHOD 01/17/2025 1:53 PM [facility] Alkaline Phosphatase 59 42 - 121 unit/L LAB CHEMISTRY METHOD 01/17/2025 1:53 PM [facility] Total Protein 7.2 6.0 - 8.0 g/dL LAB CHEMISTRY METHOD 01/17/2025 1:53 PM [facility] Albumin 2.9(L) 3.2 - 5.0 g/dL LAB CHEMISTRY METHOD 01/17/2025 1:53 PM [facility] Total Bilirubin 0.8 0.0 - 1.4 mg/dL LAB CHEMISTRY METHOD 01/17/2025 1:53 PM [facility] Blood Venous blood specimen / Unknown Venipuncture / Unknown 01/17/2025 6:19 AM EST 01/17/2025 12:22 PM EST us Bonilla Sosa MD LAB BLOOD ORDERABLES Final Res ult [facility] [address] [place] [address], [place] [phone] from Last 3 Months or Most Recently Relevant to Health Maintenance Insurance MEDICARE Care Teams Trains Dispatcher Supervisor Relationship Specialty Start Date End Date Milton Durán MD [address] [place] [address] [address] [id number] PCP - General 02/03/18
--- OUTSIDE RECORDS SUMMARY | 2025-06-13 12:09 | XMS_ITS | Patient Health Record ---
Author Organization [facility] Address [address] [place] [address] Care Team Providers Care Policyholder Information Clerk Name Role Phone Milton Durán MD Primary Care Provider UnavailFady Mcfarland Unavailable [phone] Allergies Allergen (clinical drug ingredient) Drug/Non Drug [...] Problem Acquired hammer toe of right foot (8401460294957 105) Other hammer toe(s) (acquired), right foot (M20.41) Active confirmed Problem Acquired hammer toe of left foot ([id number] 103) Other hammer toe(s) (acquired), left foot [...] Medicare [employer] [address] [place] [address] [id number] Keegan Fagan Jr Self - patient is the insured [place] ([facility]) [address] [place] [address] [id number] Keegan Fagan Jr Self - patient is the insured Medical (General) History Medical History History ICD Code Arthritis Back,Hip,and Knee pain Gall bladder problems Heart disease High blood pressure Scarlet fever Measles Mumps Chicken pox Surgical History Surgery Date(Month/Year) Right eye surgery 195 gall bladder 2003 heart surgery unspecified 2001 [place] History Reason Date[place] [facility] [place]
== END 2025-06-13 11:32 | disposition home or self-care (01) ==
LOC: HO.ACS 11:05
PROVIDERS: PCP Internal Medicine; Visit Provider Internal Medicine Medical Oncology
DX: Z79.01 Long term (current) use of 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 (principal)

== ENCOUNTER → 2025-06-13 11:05 | Outpatient (BNVA) | payer MEDICARE, OTHER, SELFPAY | PROVIDERS: PCP Internal Medicine; Visit Provider Internal Medicine Medical Oncology | DX: I48.20 Chronic atrial fibrillation, unspecified (principal); Z95.2 Presence of prosthetic heart valve; Z79.01 Long term (current) use of 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; Z51.81 Encounter for therapeutic drug level monitoring | CPT/HCPCS: 85610; 99211 ==

== ENCOUNTER 2025-06-20 08:26 | Outpatient (AMB) | payer MEDICARE, OTHER, SELFPAY ==
--- OUTSIDE RECORDS SUMMARY | 2025-06-20 08:34 | XMS_ITS | Clinical Summary ---
Author Organization [address] [place] [address] [place] [phone] Phone Care Team Providers Care Logger Driving Horses Name Role Phone Milton Durán MD Primary Care Provider [phone] Allergies Active Allergy Reactions Criticality Noted Date Comments Adhesive Tape-Silicones 06/05/2021 Atenolol 06/05/2021 Atorvastatin Calcium 06/05/2021 Sotalol 06/05/2021 Medications sildenafil citrate (VIAGRA ORAL) Take by mouth as needed. Active sodium chloride (AYR) 0.65 % nasal drops Active amoxicillin (AMOXIL) 500 mg capsule Take 1 capsule (500 mg total) by mouth 1 (one) time each day. Active doxazosin (CARDURA) 4 mg tablet Take 4 mg by mouth daily. Active finasteride (PROSCAR) 5 mg tablet Take 5 mg by mouth daily. Active lisinopriL (PRINIVIL,ZEST RIL) 20 mg tablet Take 2 tablets (40 mg total) by mouth 1 (one) time each day. Active warfarin (COUMADIN) 5 mg tablet Take 5 mg by mouth daily. Active metoprolol succinate (TOPROL-XL) 100 mg 24 hr tablet Take 1 tablet (100 mg total) by mouth 1 (one) time each day. 04/03/20 25 Active spironolactone (ALDACTONE) 25 mg tablet Take 1 tablet (25 mg total) by mouth 1 (one) time each day in the morning. Active triamcinolone (KENALOG) 0.1 % cream Apply topically 2 (two) times a day. Active furosemide (LASIX) 40 mg tablet Take 2 tablets (80 mg total) by mouth 1 (one) time each day. 06/14/20 25 Active rosuvastatin (CRESTOR) 40 mg tablet Take 40 mg by mouth daily. 025 Discontinued(Di scontinued by another clinician) furosemide (LASIX) 40 mg tablet TAKE 2 TAB IN THE MORNING AND 1 TAB IN THE AFTERNOON 90 tablet 5 11/16/20 24 025 Discontinued Hospital, Clinic, or Other Facility Administered Medication Ordered Dose Route Frequency Start Date End Date Status perflutren lipid microsphere (DEFINITY) 1.3 mL in sodium chloride 0.9% 8.7 mL injection 10 mL IV Once in imaging 06/15/2025 06/15/2025 End ed Active Problems Problem Noted Date Diagnosed Date Pulmonary hypertension (CMS/HCC V24, CMS/HCC V28 ) 08/20/2024 Overview (09/27/2024): Last Assessment & Plan: From longstanding atrial fibrillation, and heart failure with preserved EF. Hopefully, with more aggressive diuresis, pulmonary arterial systolic pressure should improve. Assessment & Plan (06/14/2025 11:54 AM EDT): He has a history of pulmonary HTN for over 10 years, likely from longstanding atrial fibrillation. Most recent echocardiogram shows a normal LV systolic function with an EF of 55-60%, mild tricuspid regurgitation, and a severely elevated PASP 76 mmHg. He remains asymptomatic aside from BLE edema. No change to current medical therapy. Hx of mechanical aortic valve replacement 2023 Overview (06/14/2025): Last Assessment & Plan: He is on warfarin and INR is monitored by Dr. Dangelo. Valve function is normal by echocardiogram. Assessment & Plan (06/14/2025 11:52 AM EDT): He remains on warfarin managed by PCP. Most recent echocardiogram shows a well-seated, normally functioning valve. Continue with endocarditis prophylaxis prior to dental procedures. Atrial fibrillation and flutter (CMS/HCC V24, CM S/HCC V28) 06/05/2021 Overview (09/27/2024): Atrial fibrillation and flutter Last Assessment & Plan: Does not require rate control medications, has no sign of profound bradycardia. Will continue to monitor clinically. Assessment & Plan (06/14/2025 11:45 AM EDT): EKG done in the office shows atrial fibrillation with a well-controlled rate of 65 bpm. He is on warfarin (due to history of mechanical aortic valve replacement) for stroke risk reduction. He has been on metoprolol 100 mg daily. I will not make any changes given he is asymptomatic and HR is well-controlled. Bicuspid aortic valve 06/05/2021 Overview (09/27/2024): Bicuspid aortic valve Last Assessment & Plan: Status post mechanical AVR. On Coumadin endocarditis prophylaxis. CHF (congestive heart failure) (CMS/[facility] V24, CMS /[facility] V28) 06/05/2021 Overview (09/27/2024): Last Assessment & Plan: Is small volume overloaded with moderate lower extremity edema and dilated IVC with poor collapse. He is on furosemide 80 mg in the morning. I will add additional 40 mg in the afternoon. Will check BMP, magnesium and BNP. Assessment & Plan (06/14/2025 11:48 AM EDT): He has significant BLE lower extremity edema, left more than right, but otherwise appears euvolemic on physical exam, denies shortness of breath/orthopnea and weight is down about 14 lbs since his last visit. Previous attempts to increase diuretics resulted in declining kidney function. I will make no changes today, continue furosemide 80 mg daily. Syncope 06/05/2021 Overview (09/27/2024): Syncope Sick sinus syndrome (CMS/[facility] V24, CMS/[facility] V28) 0 06/05/2021 Overview (09/27/2024): Sick sinus syndrome Encounters Date Type Department Care Team Description 06/15/2025 1:30 PM EDT Ancillary Procedure [facility] [address] [place] [phone] Chronic diastolic congestive heart failure (CMS/HCC V24, CMS/HCC V28); Atrial fibrillation and flutter (CMS/HCC V24, CMS/HCC V28) 06/14/2025 7:40 AM EDT Consult [facility] [address] [place] [phone] Trish Bhardwaj NP Chronic diastolic congestive heart failure (CMS/HCC V24, CMS/HCC V28) (Primary Dx); Atrial fibrillation and flutter (CMS/HCC V24, CMS/HCC V28); Pulmonary hypertension (CMS/HCC V24, CMS/HCC V28); Hx of mechanical aortic valve replacement; Preop cardiovascular exam 05/17/2025 Telephone [facility] [address] [facility] [address] [place] [phone] Tanmay Flores MD Pre-op Visit from Last [...] Sign Reading Time Taken Comments Blood Pressure 130/70 06/15/2025 2:29 PM EDT Pulse 65 06/14/2025 7:52 AM EDT Temperature - - Respiratory Rate - - Oxygen Saturation 97% 06/14/2025 7:52 AM EDT Inhaled Oxygen Concentration - - Weight 104 kg (230 lb) 06/15/2025 2:29 PM EDT Height 198.1 cm (6' 6 ) 06/15/2025 2:29 PM EDT Body Mass Index 26.58 06/15/2025 2:29 PM EDT Plan of Treatment Health Maintenance Due Date Last Done Comments Zoster Vaccines (1 of 2) 1985 RSV Immunization Adult Patients (1 - 1-dose 75+ series) 2010 Cholesterol Screening (Lipid Panel) 10/30/2022 Falls Risk Assessment 10/30/2022 Medicare Annual Wellness Visit 10/30/2022 Social Influencers of Health Screening 10/30/2022 COVID-19 Vaccine ( season) 2024 01/04/2021, 12/04/2020 Depression Screening 12/01/2024 Influenza Vaccine (#1) 2025 , 09/18/2022, 10/04/2021, Additional history exists Hypertension/CHF/CAD Annual BMP Blood Test 01/17/2026 01/17/2025 DTaP,Tdap,and Td Vaccines (2 - Td or Tdap) 05/11/2029 05/11/2019 Pneumococcal Vaccine: 50+ Years Completed 11/14/2016, 11/30/2015 HIB Vaccines Aged Out No longer eligi [...] Procedure Name Priority Date/Time Associated Diagnosis Comments TRANSTHORACIC ECHOCARDIOGRAM (TTE) COMPLETE W/ CONTRAST Routine 06/15/2025 2:29 PM EDT Chronic diastolic congestive heart failure (CMS/HCC V24, CMS/HCC V28) Atrial fibrillation and flutter (CMS/HCC V24, CMS/HCC V28) ECG 12-LEAD Routine 06/14/2025 7:48 AM EDT Chronic diastolic congestive heart failure (CMS/HCC V24, CMS/HCC V28) COMPREHENSIVE METABOLIC PANEL Routine 01/17/2025 6:19 AM EST 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3 4.2 - 5.8 cm CV PACS LVIDS 3.5 2.5 - 4.0 cm CV PACS LVOT Mean Grad 1 mmHg CV PACS LVOT Peak VTI 15.6 cm CV PACS LVOT Mean Alok 0.5 m/s CV PACS LVOT Peak Alok 0.7 m/s CV PACS LVOT Peak Gradient 2 mmHg CV PACS LVPWD 1.4(A) 0.6 - 1.0 cm CV PACS PV Acceleration Time 90 ms CV PACS PV Acceleration Time 82 ms CV PACS PV Acceleration Time 86 ms CV PACS RV Diastolic Basal Dimension 4.9(A) 2.5 - 4.1 cm CV PACS TR Peak Velocity 2.84 m/s CV PACS TR Peak Gradient 32 mmHg CV PACS Relative Wall Thickness ratio 0.53 CV PACS LVOT:AV VTI Index 0.34 CV PACS FS 34 % CV PACS LV Mass 2D 319 g CV PACS AV Velocity Ratio 0.35 CV PACS BSA 2.4 m2 CV PACS LA Volume Index (BP) 60 mL/m2 CV PACS LVIDD Index 2.21 cm/m2 CV PACS LVIDS Index 1.46 cm/m2 CV PACS LV Mass Index 2D 133(A) 50 - 102 g/m2 CV PACS RA 2D Volume Index 41(A) 18 - 32 mL/m2 CV PACS Ascending Aorta Index 1.46 cm/m2 CV PACS Right Ventricular Peak Systolic Pressure 40 mmHg CV PACS Est. RA Pressure 8 mmHg CV PACS Anatomical Region Laterality Modality Ultrasound Narrative 06/16/2025 1:40 PM EDT This is a technically difficult study. Left ventricle cavity size is normal. Left ventricular systolic function is in the normal range with an ejection fraction of 55-60%.Paradoxical septal motion consistent with cardiac surgery. Otherwise no regional wall motion abnormalities. Unable to assess diastolic function. Right ventricle cavity is enlarged and systolic function not assessed. Severe biatrial enlargement. A mechanical aortic valve is present with normal funciton. Tricuspid Valve: The right ventricular systolic pressure is elevate at 40mmHg but suspect right ventricular systolic pressure underestimated. Left Ventricle Left ventricle cavity size is normal. There is moderate hypertrophy. Systolic function is normal with an ejection fraction of 55-60%. Paradoxical septal motion consistent with cardiac surgery. Otherwise no regional wall motion abnormalities. Unable to assess diastolic function. Right Ventricle Right ventricle cavity is dilated. Not assessed. Left Atrium Left atrium cavity is severely dilated. Right Atrium Right atrium cavity is severely dilated. IVC/SVC Inferior vena cava is dilated. RA pressures is estimated to be 8 mmHg (IVC diameter <21 mm and decreases <50% during inspiration). Mitral Valve The leaflets exhibit normal excursion. There is elongation of the anterior leaflet. There is no regurgitation or stenosis. Tricuspid Valve The tricuspid valve was not well visualized. There is trace regurgitation. There is no evidence of tricuspid valve stenosis. The right ventricular systolic pressure is elevate at 40mmHg but suspect right ventricular systolic pressure underestimated. Aortic Valve The valve has been surgically replaced. There is a mechanical valve. There is no regurgitation or stenosis. Pulmonic Valve The pulmonic valve was not well visualized. There is trace pulmonic valve regurgitation. No significant pulmonary valve stenosis noted. Ascending Aorta The aorta appears normal in size. Study Details Overall the study quality was technically difficult. The underlying ECG rhythm was atrial fibrillation. Cardiac history: prosthetic valve. Study was difficult due to: procedure performed with the patient in a supine position. Trish Bhardwaj NP CV ECHO PROCEDURES Final Result * ECG 12 lead (06/14/2025 7:48 AM EDT) Ventricular Rate ECG 65 BPM GEMUSE Atrial Rate 56 BPM GEMUSE QRS Duration 140 ms GEMUSE Q-T Interval 434 ms GEMUSE QTc 451 ms GEMUSE R Isola -18 degrees GEMUSE T Isola 16 degrees GEMUSE ECG Interpretation Atrial fibrillation Incomplete left bundle branch block No significant change was found compared with EKG from 08/2024. Confirmed by Marcin FLORES YUFENG ([id number]) on 06/14/2025 10:54:56 AM GEMUSE 06/14/2025 7:48 AM EDT 06/14/2025 10:54 AM EDT Trish Bhardwaj NP ECG ORDERABLES Final Result GEMUSE * (ABNORMAL) Comprehensive metabolic panel (01/17/2025 6:19 AM EST) Pathologist [facility] [place] Sodium 137 133 - 145 mmol/L LAB CHEMISTRY METHOD 01/17/2025 1:53 PM [facility] Potassium 3.9 3.5 - 5.5 mmol/L LAB CHEMISTRY METHOD 01/17/2025 1:53 PM [facility] Chloride 103 96 - 110 mmol/L LAB CHEMISTRY METHOD 01/17/2025 1:53 PM [facility] CO2 32 21 - 32 mmol/L LAB CHEMISTRY METHOD 01/17/2025 1:53 PM [facility] Anion Gap 2(L) 3 - 11 LAB CHEMISTRY METHOD 01/17/2025 1:53 PM [facility] Glucose 77 70 - 100 mg/dL LAB CHEMISTRY METHOD 01/17/2025 1:53 PM [facility] BUN 22 5 - 25 mg/dL LAB CHEMISTRY METHOD 01/17/2025 1:53 PM [facility] Creatinine 0.89 0.70 - 1.30 mg/dL LAB CHEMISTRY METHOD 01/17/2025 1:53 PM [facility] eGFR 82 >=60 mL/min/1. 73m2 LAB CHEMISTRY METHOD 01/17/2025 1:53 PM [facility] Comment:Calculation based on the Chronic Kidney Disease Epidemiology Collaboration (CKD-EPI) equation refit without adjustment for race. BUN/Creatinine Ratio 24.7 LAB CHEMISTRY METHOD 01/17/2025 1:53 PM [facility] Calcium 8.2(L) 8.5 - 10.5 mg/dL LAB CHEMISTRY METHOD 01/17/2025 1:53 PM [facility] AST (SGOT) 26 10 - 42 unit/L LAB CHEMISTRY METHOD 01/17/2025 1:53 PM [facility] ALT (SGPT) 23 10 - 60 unit/L LAB CHEMISTRY METHOD 01/17/2025 1:53 PM [facility] Alkaline Phosphatase 59 42 - 121 unit/L LAB CHEMISTRY METHOD 01/17/2025 1:53 PM [facility] Total Protein 7.2 6.0 - 8.0 g/dL LAB CHEMISTRY METHOD 01/17/2025 1:53 PM [facility] Albumin 2.9(L) 3.2 - 5.0 g/dL LAB CHEMISTRY METHOD 01/17/2025 1:53 PM [facility] Total Bilirubin 0.8 0.0 - 1.4 mg/dL LAB CHEMISTRY METHOD 01/17/2025 1:53 PM [facility] Blood Venous blood specimen / Unknown Venipuncture / Unknown 01/17/2025 6:19 AM EST 01/17/2025 12:22 PM EST us Bonilla Sosa MD LAB BLOOD ORDERABLES Final Res ult [facility] [address] [place] [address], from Last 3 Months or Most Recently Relevant to Health Maintenance Insurance [facility]ICARE [facility] Care Teams Logger Driving Horses Relationship Specialty Start Date End Date Milton Durán MD [address] [place] [address] [place] [id number] PCP - General 02/03/18
--- OUTSIDE RECORDS SUMMARY | 2025-06-20 08:34 | XMS_ITS | Patient Health Record ---
Author Organization [facility] Address [address] [place] [address] Care Team Providers Care Property Manager Name Role Phone Milton Durán MD Primary Care Provider UnavailFady Mcfarland Unavailable [phone] Allergies Allergen (clinical drug ingredient) Drug/Non Drug [...] Problem Acquired hammer toe of right foot (2255490794698 105) Other hammer toe(s) (acquired), right foot (M20.41) Active confirmed Problem Acquired hammer toe of left foot ([id number] 103) Other hammer toe(s) (acquired), left foot [...] Medicare [employer] [address] [place] [address] [id number] Keegan Fagan Jr Self - patient is the insured [facility] [facility] [address] [place] [address] [id number] Keegan Fagan Jr Self - patient is the insured Medical (General) History Medical History History ICD Code Arthritis Back,Hip,and Knee pain Gall bladder problems Heart disease High blood pressure Scarlet fever Measles Mumps Chicken pox Surgical History Surgery Date(Month/Year) Right eye surgery 195 gall bladder 2003 heart surgery unspecified 2001 Hospitalization History Reason Date(Month/Year) [facility] [place]-pneumonia 1 week 10/2021
--- OUTSIDE RECORDS SUMMARY | 2025-06-20 08:35 | XMS_ITS | Clinical Summary ---
Author Organization [facility] Address [address] [address] Phone Care Team Providers Care Foam Rubber Mixer Name Role Phone Milton Durán MD Primary Care Provider Allergies Active Allergy Reactions Criticality Noted Date Comments Atenolol Other (See Comments) 01/28/2001 Cognitive changes Atorvastatin Unknown 04/18/2011 Nifedipine Swelling 08/14/2012 Sotalol Other (See Comments) 01/28/2001 Symptomatic bradycardia Medications amoxicillin (AMOXIL) 500 MG tablet Take 2,000 mg by mouth once as needed (endocarditis prophylaxis). take 1h before resp, oral, esoph procedures. 2 Active celecoxib (CELEBREX) 200 MG capsule Take 200 mg by mouth daily. Active doxazosin (CARDURA) 4 MG tablet Take 4 mg by mouth daily. Active furosemide (LASIX) 80 MG tablet Take 80 mg by mouth daily. 5 Active potassium chloride (KLOR-CON) 20 mEq TbER Take 20 mEq by mouth daily. Active WARFARIN SODIUM (WARFARIN ORAL) Take by mouth. Active warfarin (COUMADIN) 5 MG tablet TAKE 1 AND 1/2 TABLETS (7.5MG) BY MOUTH EVERY EVENING 135 tablet 3 6 Active acebutolol (SECTRAL) 200 MG capsule 2 PILLS IN THE MORNING, 1 TAB IN THE AFTERNOON 270 capsule 3 7 Active lisinopril (PRINIVIL,ZESTR IL) 20 MG tablet TAKE 2 TABLETS BY MOUTH IN THE MORNING AND 1 TAB IN THE AFTERNOON 270 tablet 3 7 Active finasteride (PROSCAR) 5 mg tablet TAKE 1 TABLET BY MOUTH EVERY DAY 90 tablet 3 7 Active rosuvastatin (CRESTOR) 40 MG tablet TAKE 1 TABLET (40 MG TOTAL) BY MOUTH DAILY. 90 tablet 3 8 Active Active Problems Problem Noted Date Diagnosed Date Atherosclerosis of [place] co ronary artery of [place] heart without angina pectoris 02/03/2017 Mixed hyperlipidemia 02/03/2017 Essential hypertension, benign 08/13/2016 Sick sinus syndrome 08/13/2016 Bicuspid aortic valve 08/13/2016 Anxiety 08/13/2016 Eczema 07/03/2012 Overview (01/21/2015): Eczema Hypertensive disorder 07/03/2012 Overview (01/21/2015): Hypertensive disorder Chronic atrial fibrillation 07/03/2012 Overview (01/21/2015): Atrial fibrillation Uncoded S/P Cardiac Valve Replacement 07/03/2012 Overview (01/21/2015): S/P Cardiac Valve Replacement Benign prostatic hyperplasia 07/03/2012 Overview (01/21/2015): Benign prostatic hyperplasia Uncoded Ocular Prosthesis 07/03/2012 Overview (01/21/2015): Ocular Prosthesis; Right Social History Tobacco Use Types Packs/Day Years Used Date Smoking Tobacco: Never Assessed Education Answer Date Recorded Are you interested in more education? Not on robert e 03/30/2023 Are you concerned about learning? Not on file 03/30/2023 No 03/30/2023 No 03/30/2023 Digital Access Answer Date Recorded No 04/27/2023 No 04/27/2023 No 04/27/2023 Reliable internet access at home? Not on file 04/27/2023 Device with a working camera? Not on file Sex and Gender Information Value Date Recorded Sex Assigned at Not on file Legal Sex Male 5:05 PM EST Gender Identity Not on file Sexual Orientation Not on file Last Filed Vital Signs Vital Sign Reading Time Taken Comments Blood Pressure 138/76 08/14/2017 12:26 PM EDT Pulse 66 08/14/2017 12:26 PM EDT Temperature - - Respiratory Rate 16 02/21/2016 12:00 AM EDT Oxygen Saturation - - Inhaled Oxygen Concentration - - Weight 63.5 kg (140 lb) 08/14/2017 12:34 PM EDT Height 198.1 cm (6' 6 ) 08/14/2017 12:34 PM EDT Body Mass Index 16.18 08/14/2017 12:34 PM EDT Plan of Treatment Health Maintenance Due Date Last Done Comments CREATININE LEVEL 1935 POTASSIUM LEVEL 1935 DEPRESSION SCREENING 1947 ZOSTER VACCINES (1 of 2) 1985 RSV VACCINE (1 - 1-dose 75+ series) 2010 COVID-19 VACCINE ( - 2023-2 5 season) 2024 01/04/2021, 12/04/2020 Adult Td,Tdap Booster 05/11/2029 05/11/2019 PNEUMOCOCCAL VACCINES (50+ years) Completed 11/14/2016, 11/30/2015 HEPATITIS A VACCINES Aged Out No long er eligible based on patient's age to complete this topic HIB VACCINES Aged Out No longer eligi ble based on patient's age to complete this topic MENINGOCOCCAL VACCINES (ACWY) Aged Out No longer eligible based on patient's age to complete this topic MENINGOCOCCAL VACCINES (B) Aged Out N o longer eligible based on patient's age to complete this topic Medical Devices Not on file Insurance MEDICARE PART A & B [facility] TOTAL CHOICE INDEMNITY MEDICARE PART A & B [facility] TOTAL CHOICE INDEMNITY MEDICARE PART A & B [facility] TOTAL CHOICE INDEMNITY MEDICARE PART A & B [facility] TOTAL CHOICE INDEMNITY MEDICARE PART A & B [facility] TOTAL CHOICE INDEMNITY MEDICARE PART A & B [facility] TOTAL CHOICE INDEMNITY MEDICARE PART A & B [facility] TOTAL CHOICE INDEMNITY MEDICARE PART A & B [employer] TOTAL CHOICE INDEMNITY MEDICARE PART A & B Member Subscriber Plan / Payer (Ef fective 2001-Present) Name:Keegan Fagan Member ID:[id number] Relation to Subscriber:Self Name:Keegan Fagan Subscriber ID:[id number] Payer ID:[id number] Group ID:Not on file Type:Medicare Address: [employer] [address] [place] [phone] [email or web address] [facility] TOTAL CHOICE INDEMNITY [place] [id number] [facility] TOTAL CHOICE INDEMNITY Care Teams Foam Rubber Mixer Relationship Specialty Start Date End Date Milton Durán MD [address] [place] [address] [place] [address] PCP - General 05/31/14 Additional Source Comments The information contained in this document represents components of the legal health record. It is not the complete legal health record.[facility]
[2025-06-20 08:44] LABS: Prothrombin Time Whole Bld POC 25.7 sec (11.1-13.5); ~PT, ~INR - Anti Coag Clinic 2.1 (0.9-1.1)
--- NOTE | 2025-06-20 08:50 | MHC.OFFVISCO ---
Intake Intake Visit Reasons: Anticoagulation Allergies adhesive (ADHESIVE) Allergy (Intermediate, Verified 06/13/25 11:06) RASH, BLISTERS atenolol (Atenolol) Allergy (Mild, Verified 06/13/25 11:06) RASH oxycodone Allergy (Mild, Verified 06/13/25 11:48) Gastrointestinal Upset sotalol (Sotalol) Allergy (Mild, Verified 06/13/25 11:06) RASH tamsulosin Allergy (Unknown, Verified 06/13/25 11:48) reaction unknown tramadol Allergy (Unknown, Verified 06/13/25 11:48) reaction unknown atorvastatin (From Lipitor) Adverse Reaction (Severe, Verified 06/13/25 11:48) SEVERE ACHES AND PAINS Medication List - Last Reconciled 06/20/25 by Nakita Baez RN albuterol sulfate 90 mcg/actuation 2 puffs inhalation Q6H PRN doxazosin 4 mg PO BEDTIME enoxaparin mg subcut furosemide 40 mg PO DAILY lisinopril 40 mg PO DAILY metoprolol succinate ER 100 mg PO DAILY rosuvastatin 40 mg PO DAILY spironolactone 25 mg PO DAILY warfarin 1 mg See Protocol PO DAILY warfarin 4 mg See Protocol PO DAILY@1800 Nursing Note INR 2.1 out of therapeutic range 2.5-3.5 Medications and supplements reviewed Patient status: having bilat knee drainage and cortisone injections today with ortho Dr Hernandez 06/27/25 - having baseball size cyst/ hematoma removed from left hip by Dr Kendall - he will be on a warfarin / lovenox bridge Medications or supplements: no changes Diet: good Denies any signs and symptoms of bleeding or clotting or unusual bruising Bleeding, bruising, clotting discussed Nutritional guidance given - avoid greens post hip procedure to allow INR to resume therapeutic range quicker Dose: keep same dose 5mg today and tomorrow the 06/22 hold x 5 days 06/23 lovenox F/U INR Date : 07/01/25 Resume warfarin and lovenox per md orders ? Patient verbalizing understanding of instructions given. 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 Illness/Depression: No Coding Level of Care Code Est Patient Level 1 Diagnoses Current use of anticoagulant therapy Z79.01 Assessment & Plan Assessment & Plan (1) Current use of anticoagulant therapy: Code(s): Z79.01 - long-term (current) use of 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 Category: Medical
== END 2025-06-20 08:56 | disposition home or self-care (01) ==
LOC: HO.ACS 08:27
PROVIDERS: PCP Internal Medicine; Visit Provider Internal Medicine Medical Oncology
DX: Z79.01 Long term (current) use of 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 (principal)

== ENCOUNTER → 2025-06-20 08:26 | Outpatient (BNVA) | payer MEDICARE, OTHER, SELFPAY | PROVIDERS: PCP Internal Medicine; Visit Provider Internal Medicine Medical Oncology | DX: M25.462 Effusion, left knee (principal); M25.461 Effusion, right knee; M17.0 Bilateral primary osteoarthritis of knee; Z79.01 Long term (current) use of 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 | CPT/HCPCS: 20610; 85610; 99211; 99212; J0665; J1100; J2003 ==

== ENCOUNTER 2025-06-20 09:00 | Outpatient (AMB) | payer MEDICARE, OTHER, SELFPAY ==
--- NOTE | 2025-06-20 09:07 | MHC.OFFVIS ---
Vital Signs 06/20/25 09:08 Height 6 ft 6 in Weight 229 lb BMI 26.5 Intake Visit Reasons: OV-Bilateral Knee Aspirations Intake Note: Keegan is a 89 year old male who presents today for bilateral knee aspirations. His knees were last aspirated 12/03/24 with Fran Santos. Patient would like to repeat bilateral knee aspirations today. Allergies adhesive (ADHESIVE) Allergy (Intermediate, Verified 06/20/25 09:12) RASH, BLISTERS atenolol (Atenolol) Allergy (Mild, Verified 06/20/25 09:12) RASH oxycodone Allergy (Mild, Verified 06/20/25 09:12) Gastrointestinal Upset sotalol (Sotalol) Allergy (Mild, Verified 06/20/25 09:12) RASH tamsulosin Allergy (Unknown, Verified 06/20/25 09:12) reaction unknown tramadol Allergy (Unknown, Verified 06/20/25 09:12) reaction unknown atorvastatin (From Lipitor) Adverse Reaction (Severe, Verified 06/20/25 09:12) SEVERE ACHES AND PAINS HPI HPI OV-Bilateral Knee Aspirations: Details: Keegan is here for bilateral knee aspiration/injection. He comes in today with recurrent effusions bilateral knees. He has severe osteoarthritis bilateral knees. [facility] Medical History (Updated 06/13/25 @ 12:11 by Hanna Rice NP) Aortic valve disease Eye injury Prosthetic eye globe Pneumonia Osteoarthritis Anemia Neuropathy Guillain-Wilmer syndrome HTN (hypertension) Leukopenia Atrial fibrillation Surgical History (Updated 06/13/25 @ 12:06 by Gail Dubose RN) Hx of enucleation of right eyeball Hx of cataract extraction H/O colonoscopy Hx of aortic valve replacement History of cholecystectomy Social History (Updated 06/06/25 @ 14:33 by Ana Luisa Stephenson) Household Members: Spouse Housing: House Are you a primary menagerie caretaker to a significant other at home: No Do you presently have visiting nurse or other home services: No Alcohol intake: current Alcohol intake frequency: 0-2 drinks per day Alcohol type: wine and hard liquor Comment: refused bed alarm Patient Tobacco Use Status: Never used Tobacco service: No Current occupational status: retired Current occupation: retired Current occupational exposures/hazards: No Physical Exam Vital Signs: BMI result Body Mass Index 26.5 Extrem Other: large bilateral knee effusions Office Procedures Joint Inj/Aspir; Non-Pain Clin Joint Injection/Drain Details: Injected 1 mL of Decadron and 3 mL 1% lidocaine and 3 mL of 0.25% Marcaine. Site was prepped using aseptic technique. Patient tolerated the procedure well. Shoulders, Hips, Knees, Knee Large Joint Injection : Bilateral Knee Coding Procedure code (CPT) selection complete Assessment & Plan Assessment & Plan (1) Tricompartment osteoarthritis of knees, bilateral: Code(s): M17.0 - Bilateral primary osteoarthritis of knee Category: Medical Plan: Severe osteoarthritis bilateral knees. Aspirated copious amounts of normal-appearing synovial fluid from both knees. Injections performed without complication. Follow up as needed. Coding Level of Care Code Est Pt Level 3 (58407) Diagnoses Tricompartment osteoarthritis of knees, bilateral M17.0 CPT Codes Shoulders, Hips, Knees, - Knee Large Joint Injection : Bilateral Knee ([id number])
[2025-06-20 09:08] VITALS: BMI 26.5
== END 2025-06-20 10:01 | disposition home or self-care (01) ==
LOC: HO.HOS 09:00
PROVIDERS: PCP Internal Medicine; Visit Provider Orthopaedic Surgery
DX: M17.0 Bilateral primary osteoarthritis of knee (principal)
CPT/HCPCS: 20610; 99213

== ENCOUNTER 2025-06-27 05:44 | Day surgery (SDC) | payer MEDICARE, OTHER, SELFPAY ==
--- OUTSIDE RECORDS SUMMARY | 2025-05-19 07:53 | XMS_ITS | Clinical Summary ---
Author Organization [address] [place] [address] [place] [phone] Phone Care Team Providers Care Child Monitor Name Role Phone Milton Durán MD Primary Care Provider [phone] Allergies Active Allergy Reactions Criticality Noted Date [...] pressure should improve. Atrial fibrillation and flutter (CMS/HCC V24, CM S/HCC V28) 06/05/2021 Overview (09/27/2024): Atrial fibrillation and flutter Last Assessment & Plan: Does not require rate control medications, has no sign of profound bradycardia. Will continue to monitor clinically. Bicuspid aortic valve 06/05/2021 Overview (09/27/2024): Bicuspid aortic valve Last Assessment & Plan: Status post mechanical AVR. On Coumadin endocarditis prophylaxis. CHF (congestive heart failure) (CMS/[facility] V24, CMS /[facility] V28) 06/05/2021 Overview (09/27/2024): Last Assessment & Plan: Is small volume overloaded with moderate lower extremity edema and dilated IVC with poor collapse. He is on furosemide 80 mg in the morning. I will add additional 40 mg in the afternoon. Will check BMP, magnesium and BNP. Syncope 06/05/2021 Overview (09/27/2024): Syncope Sick sinus syndrome ([facility] V24, CMS/[facility] V28) 0 06/05/2021 Overview (09/27/2024): Sick sinus syndrome Encounters Date Type Department Care Team Description 05/17/2025 Telephone [facility] [address] [facility] [address] [place] [address] Tanmay Flores MD Pre-op Visit from Last 3 Months Social History Tobacco [...] 08/20/2024 10:51 AM EDT Plan of Treatment Upcoming Encounters Date Type Department Care Team (Late st Contact Info) Description 06/14/2025 7:40 AM EDT Office Visit [facility] [address] [facility] [address] [place] [address] Trish Bhardwaj NP [address] [place] [phone] Health Maintenance Due Date Last Done Comments [...] AM EST 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 BUN/Creatinine Ratio 24.7 LAB [...] 01/17/2025 1:53 PM [facility] Alkaline Phosphatase 59 42 - 121 unit/L LAB CHEMISTRY METHOD 01/17/2025 1:53 PM [facility] Total Protein 7.2 6.0 - 8.0 g/dL LAB CHEMISTRY METHOD 01/17/2025 1:53 PM [facility] Albumin 2.9(L) 3.2 - 5.0 [...] Final Res ult [facility] [address] [place] [address], [place] [phone] from Last 3 Months or Most Recently Relevant to Health Maintenance Insurance MEDICARE Care Teams Child Monitor Relationship Specialty Start Date End Date Milton Durán MD [address] [place] [address] [address] [place] [id number] PCP - General 02/03/18
[2025-06-13 11:59] VITALS: BP 156/79; PULSE 72; RESP 20; O2SAT 97; BMI 27.5
--- NOTE | 2025-06-13 12:12 | HO.ANESPROP2 ---
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 DNR [facility] Active Problems Active Problems: All Active Problems Anemia (Acute) Current use of anticoagulant therapy (Acute) Mass of left hip region (Acute) Subtherapeutic international normalized ratio (INR) (Acute) Pneumonia (Acute) Weakness (Acute) Ascending paralysis (Acute) Neuropathy (Acute) Ganglion, left hip (Acute) Bilateral knee effusions (Acute) Hypoxia (Acute) Acute on chronic anemia (Acute) Elevated troponin (Acute) Anemia (Acute) COVID-19 (Acute) Pneumonia (Acute) Tricompartment osteoarthritis of knees, bilateral (Acute) Cellulitis (Acute) VIRGEN (acute kidney injury) (Acute) Hypotension (Acute) Acute dehydration (Acute) HTN (hypertension) (Acute) Atrial fibrillation (Acute) Leukopenia (Acute) Guillain-Davis syndrome (Acute) Past Medical History Medical History (Updated 06/23/25 @ 16:48 by Abigail Sorenson MD) Aortic valve disease Eye injury Prosthetic eye globe Pneumonia Osteoarthritis Anemia Neuropathy Guillain-Davis syndrome HTN (hypertension) Leukopenia Atrial fibrillation Family History Family history of problems with anesthesia: No Surgical History Surgical History (Updated 06/23/25 @ 16:48 by Abigail Sorenson MD) Hx of enucleation of right eyeball Hx of cataract extraction H/O colonoscopy Hx of aortic valve replacement History of cholecystectomy History of Problems with Anesthesia: No Social History Social History (Updated 06/06/25 @ 14:33 by Ana Luisa Stephenson) Household Members: Spouse Housing: House Are you a primary hearing care practitioner to a significant other at home: No Do you presently have visiting nurse or other home services: No Alcohol intake: current Alcohol intake frequency: 0-2 drinks per day Alcohol type: wine and hard liquor Comment: refused bed alarm Patient Tobacco Use Status: Never used Tobacco Use of substances other than those prescribed or required for medical reasons: No Have you been hit, kicked, punched, or otherwise hurt by someone within the past year? If so, by whom?: No Spiritual Healthcare Practices: no Episcopalian Healthcare Practices: no Cultural Healthcare Practices: no Are you DNR?: Yes Advance Directives on File: No Poor oral hygiene: No (lower partial) service: No Current occupational status: retired Current occupation: retired Current occupational exposures/hazards: No Meds Allergies Allergy/AdvReac Type Severity Reaction Status Date / Time adhesive (ADHESIVE) Allergy Intermediate RASH, Verified 06/20/25 09:12 BLISTERS atenolol (Atenolol) Allergy Mild RASH Verified 06/20/25 09:12 oxycodone Allergy Mild Gastrointestinal Verified 06/20/25 09:12 Upset sotalol (Sotalol) Allergy Mild RASH Verified 06/20/25 09:12 tamsulosin Allergy Unknown reaction Verified 06/20/25 09:12 unknown tramadol Allergy Unknown reaction Verified 06/20/25 09:12 unknown atorvastatin (From Lipitor) AdvReac Severe SEVERE Verified 06/20/25 09:12 ACHES AND PAINS Home Medications ?Medication ?Instructions ?Recorded ?Confirmed ?Last Taken ?Type doxazosin 4 mg tablet 4 mg PO BEDTIME 04/17/21 06/20/25 03/23/25 History spironolactone 25 mg tablet 25 mg PO DAILY 03/24/25 06/20/25 04/02/25 09:00 History furosemide 40 mg tablet 40 mg PO DAILY 06/13/25 06/20/25 Unknown History lisinopril 20 mg tablet 40 mg PO DAILY 06/13/25 06/20/25 Unknown History enoxaparin 40 mg/0.4 mL 40 mg subcut BID 06/20/25 06/27/25 06/26/25 16:30 History subcutaneous syringe Exam Height,Weight and Vital Signs: Height 6 ft 5 in Weight 105.233 kg Last Vital Signs Pulse 72 06/13/25 11:59 Resp 20 06/13/25 11:59 BP 156/79 H 06/13/25 11:59 Pulse Ox 97 06/13/25 11:59 O2 Del Method Room Air 06/13/25 11:59 Pertinent Lab Results Pertinent Lab Results: Laboratory Tests 06/06/25 15:42 WBC 6.4 Hgb 10.9 L Hct 32.1 L Plt Count 174 Sodium 141 Potassium 4.2 Chloride 103 Carbon Dioxide 31 H BUN 18 H Creatinine 0.68 Narrative Narrative: EKG 03/2025 Vent. Rate : 62 BPM Atrial Rate : 65 BPM P-R Int : * ms QRS Dur : 142 ms QT Int : 430 ms P-R-T Axes : * -29 47 degrees QTcB Int : 436 ms Atrial fibrillation Left ventricular hypertrophy with QRS widening Abnormal ECG When compared with ECG of 23-Mar-2025 20:37, No significant changes seen ECHO 01/2025 Conclusions: - 1. Normal LV ejection fraction 55-60% with mild LVH with restrictive filling on mitral inflow 2. Mildly to moderately reduced RV systolic function 3. Mildly to moderately dilated left atrium 4. Normally functioning mechanical prosthesis in aortic position 5. [id number] elevation right ventricular systolic pressure with mildly elevated right atrial pressures Airway Mallampati Class: I TM Dist: >3cm Neck ROM: Full Partial: Lower Heart: RRR + valve Lungs: CTAB Assessment and Plan Assessment Anesthesia Assessment: Anesthesia Plan Discussed and PAT Visit Final Anesthetic Review Family History of Problems with Anesthesia: No History of Problems with Anesthesia: No Documented by User: Minal Donaldson NP 06/24/25 12:21 HPI - Anesthesia Eval Consult details Narrative: 89yo M for Left Excision Large Mass mass on Hip, 06/27/25 No recent illness No CP/SOB with ADLs Baseline LE edema 2-3+ on lasix [facility] for chronic afib, CHF with preserved EF, pulmonary HTN. Cleared by cardiology 06/14/25; echo ordered to reassess PASP. s/p AVR (mechanical) 2000. Afib on warfarin, will be bridged with lovenox. 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 DNR [facility] Past Medical History Medical History (Updated 06/23/25 @ 16:48 by Abigail Sorenson MD) Aortic valve disease Eye injury Prosthetic eye globe Pneumonia Osteoarthritis Anemia Neuropathy Guillain-Davis syndrome HTN (hypertension) Leukopenia Atrial fibrillation Surgical History Surgical History (Updated 06/23/25 @ 16:48 by Abigail Sorenson MD) Hx of enucleation of right eyeball Hx of cataract extraction H/O colonoscopy Hx of aortic valve replacement History of cholecystectomy Social History Social History (Updated 06/06/25 @ 14:33 by Ana Luisa Stephenson) Household Members: Spouse Housing: House Are you a primary hearing care practitioner to a significant other at home: No Do you presently have visiting nurse or other home services: No Alcohol intake: current Alcohol intake frequency: 0-2 drinks per day Alcohol type: wine and hard liquor Comment: refused bed alarm Patient Tobacco Use Status: Never used Tobacco Use of substances other than those prescribed or required for medical reasons: No Have you been hit, kicked, punched, or otherwise hurt by someone within the past year? If so, by whom?: No Spiritual Healthcare Practices: no Episcopalian Healthcare Practices: no Cultural Healthcare Practices: no Are you DNR?: Yes Advance Directives on File: No Poor oral hygiene: No (lower partial) service: No Current occupational status: retired Current occupation: retired Current occupational exposures/hazards: No Meds Allergies Allergy/AdvReac Type Severity Reaction Status Date / Time adhesive (ADHESIVE) Allergy Intermediate RASH, Verified 06/20/25 09:12 BLISTERS atenolol (Atenolol) Allergy Mild RASH Verified 06/20/25 09:12 oxycodone Allergy Mild Gastrointestinal Verified 06/20/25 09:12 Upset sotalol (Sotalol) Allergy Mild RASH Verified 06/20/25 09:12 tamsulosin Allergy Unknown reaction Verified 06/20/25 09:12 unknown tramadol Allergy Unknown reaction Verified 06/20/25 09:12 unknown atorvastatin (From Lipitor) AdvReac Severe SEVERE Verified 06/20/25 09:12 ACHES AND PAINS Home Medications ?Medication ?Instructions ?Recorded ?Confirmed ?Last Taken ?Type doxazosin 4 mg tablet 4 mg PO BEDTIME 04/17/21 06/20/25 03/23/25 History spironolactone 25 mg tablet 25 mg PO DAILY 03/24/25 06/20/25 04/02/25 09:00 History furosemide 40 mg tablet 40 mg PO DAILY 06/13/25 06/20/25 Unknown History lisinopril 20 mg tablet 40 mg PO DAILY 06/13/25 06/20/25 Unknown History enoxaparin 40 mg/0.4 mL 40 mg subcut BID 06/20/25 06/27/25 06/26/25 16:30 History subcutaneous syringe Exam Narrative Narrative: EKG 06/14/25 Afib, incomplete LBBB, rate 65; no significant changes compared to 08/2024 EKG ECHO 01/2025 Conclusions: - 1. Normal LV ejection fraction 55-60% with mild LVH with restrictive filling on mitral inflow 2. Mildly to moderately reduced RV systolic function 3. Mildly to moderately dilated left atrium 4. Normally functioning mechanical prosthesis in aortic position 5. Hvvq-ls-yovtsriq elevation right ventricular systolic pressure with mildly elevated right atrial pressures Documented by User: Lachelle Lucero MD 06/27/25 07:28 [facility] Past Medical History Medical History (Updated 06/23/25 @ 16:48 by Abigail Sorenson MD) Aortic valve disease Eye injury Prosthetic eye globe Pneumonia Osteoarthritis Anemia Neuropathy Guillain-Davis syndrome HTN (hypertension) Leukopenia Atrial fibrillation Surgical History Surgical History (Updated 06/23/25 @ 16:48 by Abigail Sorenson MD) Hx of enucleation of right eyeball Hx of cataract extraction H/O colonoscopy Hx of aortic valve replacement History of cholecystectomy Social History Social History (Updated 06/06/25 @ 14:33 by Ana Luisa Stephenson) Household Members: Spouse Housing: House Are you a primary hearing care practitioner to a significant other at home: No Do you presently have visiting nurse or other home services: No Alcohol intake: current Alcohol intake frequency: 0-2 drinks per day Alcohol type: wine and hard liquor Comment: refused bed alarm Patient Tobacco Use Status: Never used Tobacco Use of substances other than those prescribed or required for medical reasons: No Have you been hit, kicked, punched, or otherwise hurt by someone within the past year? If so, by whom?: No Spiritual Healthcare Practices: no Episcopalian Healthcare Practices: no Cultural Healthcare Practices: no Are you DNR?: Yes Advance Directives on File: No Poor oral hygiene: No (lower partial) service: No Current occupational status: retired Current occupation: retired Current occupational exposures/hazards: No Meds Allergies Allergy/AdvReac Type Severity Reaction Status Date / Time adhesive (ADHESIVE) Allergy Intermediate RASH, Verified 06/20/25 09:12 BLISTERS atenolol (Atenolol) Allergy Mild RASH Verified 06/20/25 09:12 oxycodone Allergy Mild Gastrointestinal Verified 06/20/25 09:12 Upset sotalol (Sotalol) Allergy Mild RASH Verified 06/20/25 09:12 tamsulosin Allergy Unknown reaction Verified 06/20/25 09:12 unknown tramadol Allergy Unknown reaction Verified 06/20/25 09:12 unknown atorvastatin (From Lipitor) AdvReac Severe SEVERE Verified 06/20/25 09:12 ACHES AND PAINS Home Medications ?Medication ?Instructions ?Recorded ?Confirmed ?Last Taken ?Type doxazosin 4 mg tablet 4 mg PO BEDTIME 04/17/21 06/20/25 03/23/25 History spironolactone 25 mg tablet 25 mg PO DAILY 03/24/25 06/20/25 04/02/25 09:00 History furosemide 40 mg tablet 40 mg PO DAILY 06/13/25 06/20/25 Unknown History lisinopril 20 mg tablet 40 mg PO DAILY 06/13/25 06/20/25 Unknown History enoxaparin 40 mg/0.4 mL 40 mg subcut BID 06/20/25 06/27/25 06/26/25 16:30 History subcutaneous syringe Assessment and Plan Assessment Anesthesia Assessment: Chart Reviewed Final Anesthetic Review NPO: Yes ASA Class: III Final Preanesthetic Review: No Changes in Pt Med Stat, Meds/Allgs Chart Reviewed, Consent Obtained/Reviewed, Anes Risks/Benef Reviewed and DNR Form (If Appl.) Patient Risk: Intermediate Procedure Risk: Low Anesthetic Plan Anesthetic Plan: GA Disposition: Standard PACU
[2025-06-27 05:52] VITALS: BP 158/73; PULSE 74; RESP 19; TEMP 36.4; O2SAT 96; BMI 27.9
[2025-06-27] MEDS: Lactated Ringers 1,000 ML 50 ML IVCONT (06:23)
--- NOTE | 2025-06-27 07:12 | MHC.SHP ---
Pre-Procedural Eval Section A - 24 Hr Update-Section A only Date of Service: 06/27/25 The patient is an INPATIENT: No Changes since office visit: Yes Patient answered all questions; No Cold of Flu in the past 2 weeks, No New Medical Problems and No Changes in Medication The patient has been examined within 24 hours of the surgical procedure. The History & Physical has been completed within 30 days and I have reviewed it.: No Section B - Complete if H&P > 30 days Chief Complaint: Localized swelling, mass and lump, left lower limb Details of Present Illness: Patient feels lesion in left hip has increased in size and is causing more discomfort Relevant Family History (Specify if Yes): No Relevant Social History: None Present Medications: see Short Stay Collaborative assessment Medical History: Significant History (a fib, valve replacement) History of Previous Operations: No relevant previous surgery Allergies: Allergies Allergy/AdvReac Type Severity Reaction Status Date / Time adhesive (ADHESIVE) Allergy Intermediate RASH, Verified 06/20/25 09:12 BLISTERS atenolol (Atenolol) Allergy Mild RASH Verified 06/20/25 09:12 oxycodone Allergy Mild Gastrointestinal Verified 06/20/25 09:12 Upset sotalol (Sotalol) Allergy Mild RASH Verified 06/20/25 09:12 tamsulosin Allergy Unknown reaction Verified 06/20/25 09:12 unknown tramadol Allergy Unknown reaction Verified 06/20/25 09:12 unknown atorvastatin (From Lipitor) AdvReac Severe SEVERE Verified 06/20/25 09:12 ACHES AND PAINS Review of Systems Sugical H&P ROS: Negative: Constitution, Respiratory, Gastrointestinal, Genitourinary, Musculoskeletal and Integumentary Exam Surgical H&P Exam: Normal: HEENT, Normal: Lungs, Normal: Skin and Normal: Neurological and Significant Findings: Extremities Plan Diagnosis/Plan: Change I have reviewed the history and physical and performed a pertinent physical examination on my patient. No changes have occurred unless specified. Time Spent With Patient Time: Total time managing care of this patient today ____ minutes.
[2025-06-27 07:17] LABS: INTERNATIONAL NORM RATIO 1.4 (0.9-1.1); Prothrombin Time 16.1 SEC (10.9-12.4)
--- NOTE | 2025-06-27 08:43 | P.OP_ITS ---
Operative Note Operative Note Date of Service: 06/27/25 Narrative: Preoperative diagnosis: Mass left hip Postoperative diagnosis: Same Procedure: Excision of mass left hip Surgeon: Paddy Kendall MD Principal Technical Specialist: Ahmet Lucas PA-C Anesthesia: General LMA Indications for procedure: 89-year-old male patient presenting with a large painful mass located on the left hip lateral surface measuring 10 cm in diameter. Operative findings: Solid appearing mass in the left hip possibly cystic, 10 cm diameter Specimen: Mass left hip Estimated blood loss: Less than 2 mL Complications: None Procedure details: Patient was brought to the OR placed in a supine position. After administering general anesthesia the patient was placed in a lateral position. The patient was secured with pillows. The patient's left hip was prepped with ChloraPrep and draped in a sterile fashion. A surgical time-out was called the consent confirmed. Patient received preoperative antibiotics and Venodyne boots were in place. Local anesthesia was infiltrated in a longitudinal fashion directly over the mass. An incision was then made directly over the mass and carried out through subcutaneous tissue. Sharp dissection was used to dissect the mass from the surrounding subcutaneous tissue and muscle fascia. Mass was noted to extend down to the lateral surface of the femur. This was excised completely and sent to pathology for further examination. Hemostasis was assured using electrocautery. Wounds were irrigated with saline solution and suctioned dry. Dermis was then reapproximated using interrupted 3-0 Polysorb sutures. Skin was then closed using a running subcuticular 4-0 Polysorb suture. Steri-Strips, 4 x 4 gauze and Tegaderm were then applied. The patient tolerated the procedure well. Sponge, instrument, and needle counts reported as correct. The patient was transferred to PACU in stable condition.
[2025-06-27 08:57] VITALS: BP 136/65; PULSE 74; RESP 15; TEMP 36.6; O2SAT 99
[2025-06-27 09:02] VITALS: BP 145/60; PULSE 70; RESP 14; O2SAT 99
[2025-06-27 09:07] VITALS: BP 143/65; PULSE 72; RESP 12; O2SAT 99
[2025-06-27 09:12] VITALS: BP 136/56; PULSE 69; RESP 12; O2SAT 95
[2025-06-27 09:27] VITALS: BP 148/47; PULSE 66; RESP 16; TEMP 36.6; O2SAT 95
== END 2025-06-27 09:54 | disposition home or self-care (01) ==
PROVIDERS: Nurse Practitioner; PCP Family Medicine; Visit Provider Surgery
PROC: (CPT 27043; principal; 2025-06-27 07:30)
DX: R22.42 Localized swelling, mass and lump, left lower limb (principal); D64.9 Anemia, unspecified; D72.819 Decreased white blood cell count, unspecified; G61.0 Guillain-Barre syndrome; I35.9 Nonrheumatic aortic valve disorder, unspecified; Z95.2 Presence of prosthetic heart valve; I48.91 Unspecified atrial fibrillation; I10 Essential (primary) hypertension; G62.9 Polyneuropathy, unspecified; Z97.0 Presence of artificial eye; Z87.01 Personal history of pneumonia (recurrent); Z79.01 Long term (current) use of 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; Z79.899 Other long term (current) drug therapy; L23.1 Allergic contact dermatitis due to adhesives; Z88.5 Allergy status to narcotic agent; Z88.8 Allergy status to other drugs, medicaments and biological substances; Z98.890 Other specified postprocedural states; Z48.01 Encounter for change or removal of surgical wound dressing; L76.22 Postprocedural hemorrhage of skin and subcutaneous tissue following other procedure; Y83.8 Other surgical procedures as the cause of abnormal reaction of the patient, or of later complication, without mention of misadventure at the time of the procedure; Y81.3 Surgical instruments, materials and general- and plastic-surgery devices (including sutures) associated with adverse incidents; Y92.59 Other trade areas as the place of occurrence of the external cause; Z66 Do not resuscitate
CPT/HCPCS: 27043; 36415; 85610; 88304; 88305; 99212; J0690; J1100; J2003; J2371; J2405; J2704; J3010

== ENCOUNTER → 2025-06-27 05:44 | Outpatient (BNV) | payer MEDICARE, OTHER, SELFPAY | PROVIDERS: PCP Family Medicine; Visit Provider Surgery | DX: R22.42 Localized swelling, mass and lump, left lower limb (principal) | CPT/HCPCS: 27045 ==

== ENCOUNTER 2025-06-27 15:55 | Outpatient (AMB) | payer MEDICARE, OTHER, SELFPAY ==
--- NOTE | 2025-06-27 16:03 | A.OFFVIS_ITS ---
Vital Signs 06/27/25 16:07 Height 6 ft 5 in Weight 233 lb 11.04 oz BMI 27.7 Intake Visit Reasons: wound check, bleeding Intake Note: Patient is seen in office for wound check, post excision of left hip mass. Pt c/o: arrived to the legal receptionist with blood in left leg Environmental Engineering Aide Required: No Accompanied by: Self / Same As Patient Allergies adhesive (ADHESIVE) Allergy (Intermediate, Verified 06/27/25 16:06) RASH, BLISTERS atenolol (Atenolol) Allergy (Mild, Verified 06/27/25 16:06) RASH oxycodone Allergy (Mild, Verified 06/27/25 16:06) Gastrointestinal Upset sotalol (Sotalol) Allergy (Mild, Verified 06/27/25 16:06) RASH tamsulosin Allergy (Unknown, Verified 06/27/25 16:06) reaction unknown tramadol Allergy (Unknown, Verified 06/27/25 16:06) reaction unknown atorvastatin (From Lipitor) Adverse Reaction (Severe, Verified 06/27/25 16:06) SEVERE ACHES AND PAINS HPI Comments Details: Patient returned to the office, POD 0 following excision of a mass of the left hip. He developed increased swelling and bleeding from the incision and returns for wound examination. [facility] Medical History Aortic valve disease Eye injury Prosthetic eye globe Pneumonia Osteoarthritis Anemia Neuropathy Guillain-Stedman syndrome HTN (hypertension) Leukopenia Atrial fibrillation Surgical History Hx of enucleation of right eyeball Hx of cataract extraction H/O colonoscopy Hx of aortic valve replacement History of cholecystectomy Social History Household Members: Spouse Housing: House Are you a primary resident caregiver to a significant other at home: No Do you presently have visiting nurse or other home services: No Alcohol intake: current Alcohol intake frequency: 0-2 drinks per day Alcohol type: wine and hard liquor Patient Tobacco Use Status: Never used Tobacco service: No Current occupational status: retired Current occupation: retired Current occupational exposures/hazards: No Physical Exam Vital Signs: BMI result Body Mass Index 27.7 Extrem Other: Left hip wound with intact Tegaderm however the dressing is soaked in blood. Dressings changed and wounds gently probed for hematoma. No underlying hematoma could be drained. Pressure dressing applied including fluff gauze and ABD pad. Assessment & Plan Assessment & Plan (1) Mass of left hip region: Code(s): R22.42 - Localized swelling, mass and lump, left lower limb Category: Medical Plan Patient returned following excision of a mass of the left hip with bleeding from the incision. Dressings were changed and a pressure dressing applied. Patient will return in 1-2 days for wound check, sooner PRN. Medications: Discontinued hydromorphone (Dilaudid) Partial Fill upon patient request. Discontinued Reason: Duplicate 2 mg PO Q6H PRN 15 tabs 0RF pain (scale score 7-10) R22.42 - Localized swelling, mass and lump, left lower limb Coding Level of Care Code Global (77412) Diagnoses Mass of left hip region R22.42
--- OUTSIDE RECORDS SUMMARY | 2025-06-27 16:03 | XMS_ITS | Encounter Summary ---
Author Organization [facility] Address [address] [place] [address] Care Team Providers Care Senior Credit Analyst Name Role Phone Milton Durán MD Primary Care Provider [phone] Reason for Visit * Reason Onset Date Comments Medical Records 06/10/2025 Encounter Details Date Type Department Care Team (Late st Contact Info) Description 06/10/2025 Telephone [facility] Cardiology [facility] [address] [place] [address] Milton Durán MD [address] [place] [address] [facility] [address] [place] [address] Medical Records Social History Tobacco Use Types Packs/Day Years [...] on file documented as of this encounter Progress Notes * Inessa Thurman - 06/24/2025 3:52 PM EDT Faxed 08/2024 Office Note, EKG and 08/19/2024 Echo report to [facility] Att: Katarina at [phone] on 06/10/2025 documented in this encounter Plan of Treatment Not on file documented as of this encounter Visit Diagnoses Not on filedocumented in this encounter Care Teams Senior Credit Analyst Relationship Specialty Start Date End Date Milton Durán MD [address] [place] [address] [place] [address] PCP - General 02/03/18 documented as of this encounter
--- OUTSIDE RECORDS SUMMARY | 2025-06-27 16:03 | XMS_ITS | Patient Health Record ---
[facility] Address [address] [place] [address] Care Team Providers Care Smoke Jumper Supervisor Name Role Phone Milton Durán MD Primary Care Provider UnavailFady Mcfarland Unavailable [phone] Allergies Allergen (clinical drug ingredient) Drug/Non Drug [...] Problem Acquired hammer toe of right foot ([id number]) Other hammer toe(s) (acquired), right foot (M20.41) Active confirmed Problem Acquired hammer toe of left foot ([id number] 103) Other hammer toe(s) (acquired), left foot [...] Medicare [employer] [address] [facility] [place] [address] [id number] Keegan Fagan Jr Self - patient is the insured [place] [facility] [address] [place] [address] [id number] Keegan Fagan Jr Self - patient is the insured Medical (General) History Medical History History ICD Code Arthritis Back,Hip,and Knee pain Gall bladder problems Heart disease High blood pressure Scarlet fever Measles Mumps Chicken pox Surgical History Surgery Date(Month/Year) Right eye surgery 195 gall bladder 2003 heart surgery unspecified 2001 Hospitalization History Reason Date(Month/Year[place] [facility] [place]
--- OUTSIDE RECORDS SUMMARY | 2025-06-27 16:03 | XMS_ITS | Clinical Summary ---
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 TOTAL CHOICE INDEMNITY MEDICARE PART A & [place] [id number] [facility] TOTAL CHOICE INDEMNITY Care Teams Hospice Clinical Manager Relationship Specialty Start Date End Date Milton Durán MD [address] [address] [place] [address] PCP - General 05/31/14 Additional Source Comments The information contained in this document represents components of the legal health record. It is not the complete legal health record.[facility]
[2025-06-27 16:07] VITALS: BMI 27.7
== END 2025-06-27 16:00 | disposition home or self-care (01) ==
PROVIDERS: PCP Family Medicine; Visit Provider Surgery
DX: R22.42 Localized swelling, mass and lump, left lower limb (principal)
CPT/HCPCS: 99024

== ENCOUNTER 2025-06-29 23:56 | Inpatient (IN) | payer MEDICARE, OTHER, SELFPAY ==
--- NOTE | ~2025-06-29 | CT_ITS ---
CLINICAL HISTORY: s p mass removal, r o active extravasation CT left hip with contrast Comparison: CT/SR - CT ABDOMEN PELVIS W IV CON - 02/07/25 01:56 EDT Findings: The bones are intact. Osteopenia with multilevel spondylosis and degenerative changes in the left hip. There is a large heterogeneous subcutaneous hematoma and/or residual mass measuring 6.7 x 9.4 cm series 4, image 59 with scattered foci soft tissue gas and subcutaneous edema with stranding. Tiny scattered hyperdense foci presumably throughout the hematoma for example series 5, image 30 suggesting active bleed. Distended bladder. IMPRESSION: Large heterogeneous subcutaneous hematoma and/or residual mass with tiny foci of active bleed. This document has been electronically signed by: Estuardo Philip MD on 06/30/2025 01:49:33
--- NOTE | ~2025-06-29 | CT_ITS ---
CLINICAL HISTORY: Right arm heaviness CT head without contrast Comparison: CT/SR - CT HEAD/BRAIN WO IV CON - 01/15/25 15:22 EST Findings: Artifact from metallic right globe implant limits interpretation. No evidence of acute territorial infarct. There is patchy low density in the periventricular and subcortical white matter. Diffuse volume loss is noted. No hydrocephalus. No hemorrhage, mass effect, mass lesion or midline shift. No abnormal extra-axial fluid. No calvarial fracture. Paranasal sinuses and mastoid air cells are clear. Impression: No definite acute intracranial process. Chronic changes as detailed. This document has been electronically signed by: Steve Trejo MD on 07/01/2025 20:32:39
[2025-06-29 23:59] VITALS: BP 112/79; PULSE 81; RESP 18; TEMP 36.8; O2SAT 96; BMI 27.5
[2025-06-30] VITALS (23 sets, daily range): BP systolic 130–147; BP diastolic 55–70; PULSE 64–98; RESP 11–20; TEMP 36.1–37.1; O2SAT 96–100; BMI 28.0
--- NOTE | 2025-06-30 00:12 | ED.GENADULT ---
HPI - General Adult General Chief complaint: General Medical Stated complaint: bleeding Time Seen by Provider: 06/30/25 00:07 Source: patient and family Mode of arrival: ambulatory Limitations: no limitations History of Present Illness ED Provider: Dr. Kate Gregory HPI narrative: Patient comes to the emergency room complaining of pus surgical bleeding. According to the patient, 3 days ago, patient had a painful mass removed from the left side of the hip. Patient states that he has developed more swelling and bleeding since the surgery. Denies any fever or chills. Denies any trauma after the surgery. Patient takes Coumadin for which she takes for atrial fibrillation and for a mechanical aortic valve. Related Data Home Medications ?Medication ?Instructions ?Recorded ?Confirmed doxazosin 4 mg tablet 4 mg PO BEDTIME 04/17/21 06/20/25 spironolactone 25 mg tablet 25 mg PO DAILY 03/24/25 06/20/25 furosemide 40 mg tablet 40 mg PO DAILY 06/13/25 06/20/25 lisinopril 20 mg tablet 40 mg PO DAILY 06/13/25 06/20/25 enoxaparin 40 mg/0.4 mL 40 mg subcut BID 06/20/25 06/27/25 subcutaneous syringe Previous Rx's ?Medication ?Instructions ?Recorded albuterol sulfate 90 mcg/actuation 2 puff inhalation Q6H PRN 01/05/25 aerosol inhaler shortness of breath or wheezing #8.5 grams warfarin 4 mg tablet 4 mg PO DAILY@1800 #90 tabs 06/06/25 rosuvastatin 40 mg tablet 40 mg PO DAILY #90 tabs 06/20/25 metoprolol succinate 100 mg 100 mg PO DAILY #90 tabs 06/23/25 tablet,extended release 24 hr warfarin 1 mg tablet 1 mg PO DAILY #60 tabs 06/24/25 hydromorphone 2 mg tablet 2 mg PO Q6H PRN pain (scale score 06/27/25 (Dilaudid) 7-10) #15 tabs Allergies Allergy/AdvReac Type Severity Reaction Status Date / Time adhesive (ADHESIVE) Allergy Intermediate RASH, Verified 06/30/25 00:05 BLISTERS atenolol (Atenolol) Allergy Mild RASH Verified 06/30/25 00:05 oxycodone Allergy Mild Gastrointestinal Verified 06/30/25 00:05 Upset sotalol (Sotalol) Allergy Mild RASH Verified 06/30/25 00:05 tamsulosin Allergy Unknown reaction Verified 06/30/25 00:05 unknown tramadol Allergy Unknown reaction Verified 06/30/25 00:05 unknown atorvastatin (From Lipitor) AdvReac Severe SEVERE Verified 06/30/25 00:05 ACHES AND PAINS Review of Systems Review of Systems: Constitutional : No Weight loss, No Fever, No Chills, No Night Sweats, No Fatigue, No Malaise ENT/Mouth : No Hearing loss, No Ear Pain, No Nasal Congestion, No Sinus Pain, No Hoarseness, No sore throat, No Rhinorrhea, No Swallowing Difficulty Eyes: No Eye Pain, No Swelling, No Redness, No Foreign Body, No Discharge, No Vision Changes Cardiovascular : No Chest Pain, No SOB, No Dyspnea on Exertion, No Orthopnea, No Edema, No Palpitations Respiratory : No Cough, No Sputum, No Wheezing, No Smoke Exposure, No Dyspnea Gastrointestinal : No Nausea, No Vomiting, No Diarrhea, No Constipation, No abdominal Pain, No Hematochezia, No Melena Genitourinary : no irregular bleeding, No Dysuria, No Urinary Frequency, No Hematuria, No Urinary Incontinence, No Urgency, No Flank Pain, No Urinary Flow Changes, No Hesitancy Musculoskeletal : Patient complaining of postsurgical bleeding on the left side of the hip/thigh. No joint pain, No Myalgias, No Joint Swelling Skin : No Skin Lesions, No rash Neuro : No Weakness, No Numbness, No Paresthesias, No Loss of Consciousness, No Dizziness, No Headache Psych : No Anxiety/Panic, No Depression, No SI/HI/AH/VH, No Social Issues, Heme/Lymph: No Bruising, No Bleeding,No Lymphadenopathy Endocrine : No Polyuria, No Polydipsia, No Temperature Intolerance [facility] Past Medical History Medical History Aortic valve disease Eye injury Prosthetic eye globe Pneumonia Osteoarthritis Anemia Neuropathy Guillain-Nora syndrome HTN (hypertension) Leukopenia Atrial fibrillation Surgical History Hx of enucleation of right eyeball Hx of cataract extraction H/O colonoscopy Hx of aortic valve replacement History of cholecystectomy Social History Social History Household Members: Spouse Housing: House Are you a primary adult care provider to a significant other at home: No Do you presently have visiting nurse or other home services: No Alcohol intake: current Alcohol intake frequency: holidays/special occasions only Alcohol type: wine Patient Tobacco Use Status: Never used Tobacco Smoked in Last 30 Days: No Use of substances other than those prescribed or required for medical reasons: No Advance Directives: No Advance Directives Information Provided: Yes Do you have a plan to hurt others: No Plan service: No Current occupational status: retired Current occupation: retired Current occupational exposures/hazards: No Physical Exam ED Exam Exam: Appearance: Alert. Oriented X3. No acute distress. Eyes: Pupils equal, round and reactive to light. ENT: Pharynx normal. Neck: Normal inspection. Neck supple. No lymph nodes noted. No crepitus CVS: Normal heart rate and rhythm. Pulses normal. Normal S1 and S2 Respiratory: No respiratory distress. Breath sounds normal. No Wheezing. No rales Abdomen: Soft and nontender. No rigidity. No distention. Skin: Skin warm and dry. Normal skin color. Normal skin turgor. Is a large ecchymosis a proximally 7 cm lung on the left side of the hip. The incision looks clean, there is a 0.5 cm area that has very scant bleeding at this time. The dressings on the patient's hip are soaked in blood. When we took the dressings off, there seems to be very scant active bleeding. Extremities: No lower extremity edema. No Lacerations. No Rash Neuro: Oriented X 3. No motor deficit. No sensory deficit. Moving all extremities. No slurred speech. CN 2 through 12 grossly intact Psych: calm, cooperative, normal affect Vital Signs: Vital Signs - 24 hr 06/29/25 23:59 Temperature 98.2 F Pulse Rate 81 Respiratory Rate 18 Blood Pressure 112/79 Pulse Oximetry 96 Oxygen Delivery Method Room Air BMI result Body Mass Index 27.5 Course Course Course Narrative: On 06/19/2025, patient had an excision of a mass of the left hip measuring 10 cm in diameter. Seems that the patient has stopped taking his Coumadin for this procedure, and has not restarted. Patient complaining of ongoing bleeding. Patient denies dizziness, syncopal episodes, chest pain or shortness of breath. Medical Decision Making Medical Decision Making [facility] Narrative: My interpretation of labs: Patient's hemoglobin is 8.3, hematocrit 24.4. Patient is chronically make however his hemoglobin is usually aproximally around 10. At this time, patient does not have any obvious active bleeding, when the patient arrived, the dressing was changed and his dressing is currently dry Patient's blood pressure 112/79, heart rate 81, respirations 18, temperature 98.2 degrees, oxygen saturation 96% on room air. But this time, patient declined any pain medication. CT scan showed a subcutaneous hematoma measuring 6.7 cm x 9.4 cm with tiny scattered hyperdense tiny foci presumably through the hematoma suggesting active bleed I discussed the above-mentioned with Dr. Kendall from General surgery. We will admit the patient, and likely will be going to the OR tomorrow to find the source of bleeding. I informed the patient from the above-mentioned, patient agrees with plan Differential Diagnosis Differential Diagnoses: The differential diagnosis associated with the presentation includes (Active bleeding, subcutaneous hematoma, phlegmon) Admission/Observation Consideration of admission/observation: Escalation of care including admission/observation considered Consult Healthcare Provider Management of the patient was discussed with: Senior Consumer Insights Consultant Lab Data [facility] Lab Attestation statement: I reviewed the patient's lab results. 06/30/25 00:20 06/30/25 00:20 Labs: Lab Results 06/30/25 06/30/25 06/30/25 Range/Units 00:19 00:20 00:24 WBC 8.2 (4.8-10.8) X10*3/uL RBC 2.67 L D (4.60-5.80) X10*6/uL Hgb 8.3 L D (14.0-18.0) g/dl Hct 24.4 L D (42.0-52.0) % MCV 91.4 (80.0-98.0) fL MCH 31.1 (27.0-33.0) pg MCHC 34.0 (31.0-36.0) g/dl RDW 25.3 H (11.0-16.0) % Plt Count 134 L (160-400) X10*3/uL MPV 11.1 (9.4-12.4) fL Immature Gran % (Auto) 2.2 H (0.0-0.4) % Neut % (Auto) 33.5 L (45-73) % Lymph % (Auto) 31.5 (20-40) % [place] % (Auto) 31.9 H (2-11) % Eos % (Auto) 0.7 (0-4) % Baso % (Auto) 0.2 (0-2) % Lymph # (Auto) 2.6 (1.2-4.9) X10*3/uL [place] # (Auto) 2.6 H (0.1-1.2) X10*3/uL Eos # (Auto) 0.1 (0.0-0.4) X10*3/uL Baso # (Auto) 0.0 (0.0-0.2) X10*3/uL Abs Immat Gran (auto) 0.18 H (0.00-0.03) X10*3/uL Absolute Neuts (auto) 2.7 (2.0-8.3) x10*3/uL Absolute Nucleated RBC 0.080 H (0.0-0.012) X10*3/uL Nucleated RBC % (auto) 1.0 H (0.0-0.2) /100WBC Smear Tech's Comments VERIFIED PT 16.4 H (10.9-12.4) SEC INR 1.4 H (0.9-1.1) APTT 27.2 (26.7-34.1) SEC Sodium 138 (135-145) mmol/L Potassium 4.1 (3.3-5.1) mmol/L Chloride 101 (96-108) mmol/L Carbon Dioxide 29 (22-29) mmol/L Anion Gap 12 (12-20) BUN 18 H (9-16) mg/dL Creatinine 0.86 (0.5-1.4) mg/dL Estim Creat Clear Calc 75.2 Estimated GFR > 60 Random Glucose 111 (60-115) mg/dL Calcium 8.4 D (8.4-10.2) mg/dL Total Bilirubin 0.9 (0.0-1.0) mg/dL AST 35 (5-37) U/L ALT 20 (0-40) U/L Alkaline Phosphatase 52 (39-117) U/L Total Protein 6.5 (6.5-8.0) g/dL Albumin 4.1 (3.5-5.0) g/dL Blood Type A Negative Antibody Screen NEGATIVE Independent Interpretation I performed an independent interpretation of an: CT Scan Radiology Impression Discussion of test interpretation with radiology: I have reviewed the radiologist's reading. Radiologist Impression: The bones are intact. Osteopenia with multilevel spondylosis and degenerative changes in the left hip. There is a large heterogeneous subcutaneous hematoma and/or residual mass measuring 6.7 x 9.4 cm series 4, image 59 with scattered foci soft tissue gas and subcutaneous edema with stranding. Tiny scattered hyperdense foci presumably throughout the hematoma for example series 5, image 30 suggesting active bleed. Distended bladder. IMPRESSION: Large heterogeneous subcutaneous hematoma and/or residual mass with tiny foci of active bleed. External Record Review External record reviewed: Outpatient record Critical Care Time Critical Care Time Critical Care Time: Yes Total Critical Care Time: 60 Attestation: I have personally provided critical care time. Time includes review of lab data, radiology results, discussion with consultants, and monitoring for potential decompensation. Intervention performed as documented. Discharge Plan Discharge Clinical Impression: Postoperative anemia due to acute blood loss Patient Disposition: Admitted As Inpatient Print Language: Cymraes
[2025-06-30 00:27] LABS: Mean Corpuscular HGB Conc 34.0 g/dl (31.0-36.0); PLT CLUMP 1; SCAN SMEAR FLAG 1
[2025-06-30 00:28] LABS: Hematocrit 24.4 % (42.0-52.0); Hemoglobin 8.3 g/dl (14.0-18.0); Imm Gran Abs Auto 0.18 X10*3/uL (0.00-0.03); Imm Gran Pct Auto 2.2 % (0.0-0.4); Lymphocytes Absolute Auto 2.6 X10*3/uL (1.2-4.9); MANUAL DIFF FLAG SCAN; Mean Corpuscular Hemoglobin 31.1 pg (27.0-33.0); Mean Corpuscular Volume 91.4 fL (80.0-98.0); NRBC Abs Auto 0.080 X10*3/uL (0.0-0.012); Red Blood Count 2.67 X10*6/uL (4.60-5.80)
[2025-06-30 00:33] LABS: INTERNATIONAL NORM RATIO 1.4 (0.9-1.1); Prothrombin Time 16.4 SEC (10.9-12.4)
[2025-06-30 00:36] LABS: Partial Thromboplastin Time 27.2 SEC (26.7-34.1)
[2025-06-30 00:38] LABS: NRBC Pct Auto 1.0 /100WBC (0.0-0.2); PLT ABN DIST 1
[2025-06-30 00:39] LABS: Alanine Aminotransferase 20 U/L (0-40); Albumin Level 4.1 g/dL (3.5-5.0); Alkaline Phosphatase 52 U/L (39-117); Anion Gap 12 (12-20); Aspartate Amino Transferase 35 U/L (5-37); Blood Urea Nitrogen 18 mg/dL (9-16); Calcium 8.4 mg/dL (8.4-10.2); Carbon Dioxide 29 mmol/L (22-29); Chloride 101 mmol/L (96-108); Creatinine Clr Calc Pharmacy 75.2; Estimated Glomerular Filt Rate > 60; Potassium 4.1 mmol/L (3.3-5.1); Sodium 138 mmol/L (135-145); Total Protein 6.5 g/dL (6.5-8.0)
[2025-06-30 00:51] LABS: Platelet Count 134 X10*3/uL (160-400); White Blood Count 8.2 X10*3/uL (4.8-10.8)
[2025-06-30] MEDS: Lactated Ringers 1,000 ML 100 ML IVCONT ×3 (02:35→20:45)
--- NOTE | 2025-06-30 07:34 | PM.HPGS ---
History of Present Illness History of Present Illness Date of Service: 06/30/25 Chief complaint: hematoma left leg Narrative: Keegan Fagan Jr is a 89 year old male presenting with a past medical history of atrial fibrillation, hypertension, hypercholesterolemia, status post aortic valve replacement on Coumadin recently undergoing an excision of a left hip mass earlier this week. Pathology revealed a organized clot. Postoperatively he developed immediate swelling with bleeding from the incision. A pressure dressing was applied however over the past 24 hours he reports increased bleeding which has soaked through the dressings onto his sheets. He presents emergency room for further evaluation. A CT of the left hip was performed which revealed a large hematoma with a blush suggestive of ongoing bleeding. He is admitted to the surgical service for further management. Has any significant pain. He last took the Coumadin yesterday as usual. Review of Systems Review of Systems: Yes all other systems are reviewed and are negative PMFSH Past Medical History Medical History Aortic valve disease Eye injury Prosthetic eye globe Pneumonia Osteoarthritis Anemia Neuropathy Guillain-Benge syndrome HTN (hypertension) Leukopenia Atrial fibrillation Surgical History Surgical History Hx of enucleation of right eyeball Hx of cataract extraction H/O colonoscopy Hx of aortic valve replacement History of cholecystectomy Social History Social History Household Members: Spouse Housing: House Are you a primary senior care manager to a significant other at home: No Do you presently have visiting nurse or other home services: No Alcohol intake: current Alcohol intake frequency: holidays/special occasions only Alcohol type: wine Patient Tobacco Use Status: Never used Tobacco Smoked in Last 30 Days: No Use of substances other than those prescribed or required for medical reasons: No Advance Directives: No Advance Directives Information Provided: Yes Do you have a plan to hurt others: No Plan service: No Current occupational status: retired Current occupation: retired Current occupational exposures/hazards: No Meds Allergies Allergy/AdvReac Type Severity Reaction Status Date / Time adhesive (ADHESIVE) Allergy Intermediate RASH, Verified 06/30/25 00:05 BLISTERS atenolol (Atenolol) Allergy Mild RASH Verified 06/30/25 00:05 oxycodone Allergy Mild Gastrointestinal Verified 06/30/25 00:05 Upset sotalol (Sotalol) Allergy Mild RASH Verified 06/30/25 00:05 tamsulosin Allergy Unknown reaction Verified 06/30/25 00:05 unknown tramadol Allergy Unknown reaction Verified 06/30/25 00:05 unknown atorvastatin (From Lipitor) AdvReac Severe SEVERE Verified 06/30/25 00:05 ACHES AND PAINS Active Medications: Current Medications Hydromorphone HCl (Hydromorphone Hcl 0.5 Mg/0.5 Ml Syringe) 0.5 mg IVPUSH Q3H PRN; Protocol PRN Reason: Pain, Severe (Pain Scale 7-10) Lactated Ringer's (Lr) 1,000 mls @ 100 mls/hr IVCONT .Q10H [place] Last Admin: 06/30/25 02:35 Dose: 100 mls/hr Ondansetron HCl (Ondansetron Hcl 4 Mg/2 Ml Vial) 4 mg IVPUSH QID PRN PRN Reason: Nausea Home Medications ?Medication ?Instructions ?Recorded ?Confirmed ?Last Taken ?Type doxazosin 4 mg tablet 4 mg PO BEDTIME 04/17/21 06/20/25 03/23/25 History spironolactone 25 mg tablet 25 mg PO DAILY 03/24/25 06/20/25 04/02/25 09:00 History furosemide 40 mg tablet 40 mg PO DAILY 06/13/25 06/20/25 Unknown History lisinopril 20 mg tablet 40 mg PO DAILY 06/13/25 06/20/25 Unknown History enoxaparin 40 mg/0.4 mL 40 mg subcut BID 06/20/25 06/27/25 06/26/25 16:30 History subcutaneous syringe Physical Exam Vital Signs: Vital Signs: Last Vital Signs Temp 97.7 F 06/30/25 05:14 Pulse 73 06/30/25 05:14 Resp 14 06/30/25 05:14 BP 134/70 06/30/25 05:14 Pulse Ox 97 06/30/25 05:14 O2 Del Method Room Air 06/30/25 05:14 BMI result Body Mass Index 27.5 HEENT: Head: Yes normocephalic and Yes atraumatic Resp: Effort & Inspection: normal respiratory effort GI: Inspection: Yes normal to inspection Extrem: Other: Left hip with marked swelling below previous incision. No active bleeding noted at this time. Surrounding ecchymosis noted in surrounding skin. Results Results Labs: Short CBC 06/30/25 Range/Units 00:20 WBC 8.2 (4.8-10.8) X10*3/uL Hgb 8.3 L D (14.0-18.0) g/dl Hct 24.4 L D (42.0-52.0) % Plt Count 134 L (160-400) X10*3/uL BMP 06/30/25 00:20 Sodium 138 Potassium 4.1 Chloride 101 Carbon Dioxide 29 BUN 18 H Creatinine 0.86 Calcium 8.4 D Liver Function 06/30/25 Range/Units 00:20 Total Bilirubin 0.9 (0.0-1.0) mg/dL AST 35 (5-37) U/L ALT 20 (0-40) U/L Alkaline Phosphatase 52 (39-117) U/L Albumin 4.1 (3.5-5.0) g/dL Assessment and Plan (1) Current use of anticoagulant therapy: Status: Acute (2) Mass of left hip region: Status: Acute (3) Hematoma: Status: Acute Plan 89-year-old male patient presenting with a large hematoma following removal of a chronic hematoma of the left hip. I recommended evacuation of this large hematoma and exploration for any active bleeding. I reviewed the procedure, risks, and alternatives in detail with the patient and he consents to the surgery. He has been added onto the operative schedule for this morning. Quality Stroke Does the patient have a stroke diagnosis?: No VTE Prior VTE?: No VTE Risk Level:: Surgical - moderate VTE Device Contraindication: N/A - Device Ordered VTE Drug Contraindication: N/A - Med Ordered Procedures Date of Service Date of Service: 06/30/25
--- NOTE | 2025-06-30 07:45 | PC.NURSE ---
left hip dressing upon arrival. no staining noted. warren on right right repositioned and changed patient
--- NOTE | 2025-06-30 08:52 | HO.ANESPROP2 ---
HPI - Anesthesia Eval Consult details Narrative: 89 yo M presenting for evacuation of hematoma on left hip PMFSH Active Problems Active Problems: All Active Problems Hematoma (Acute) Postoperative anemia due to acute blood loss (Acute) Anemia (Acute) Current use of anticoagulant therapy (Acute) Mass of left hip region (Acute) Subtherapeutic international normalized ratio (INR) (Acute) Pneumonia (Acute) Weakness (Acute) Ascending paralysis (Acute) Neuropathy (Acute) Ganglion, left hip (Acute) Bilateral knee effusions (Acute) Hypoxia (Acute) Acute on chronic anemia (Acute) Elevated troponin (Acute) Anemia (Acute) COVID-19 (Acute) Pneumonia (Acute) Tricompartment osteoarthritis of knees, bilateral (Acute) Cellulitis (Acute) VIRGEN (acute kidney injury) (Acute) Hypotension (Acute) Acute dehydration (Acute) HTN (hypertension) (Acute) Atrial fibrillation (Acute) Leukopenia (Acute) Guillain-Wheeler syndrome (Acute) Past Medical History Medical History Aortic valve disease Eye injury Prosthetic eye globe Pneumonia Osteoarthritis Anemia Neuropathy Guillain-Wheeler syndrome HTN (hypertension) Leukopenia Atrial fibrillation Family History Family history of problems with anesthesia: No Surgical History Surgical History Hx of enucleation of right eyeball Hx of cataract extraction H/O colonoscopy Hx of aortic valve replacement History of cholecystectomy History of Problems with Anesthesia: No Social History Social History Household Members: Spouse Housing: House Are you a primary care nurse rn to a significant other at home: No Do you presently have visiting nurse or other home services: No Alcohol intake: current Alcohol intake frequency: holidays/special occasions only Alcohol type: wine Comment: counts correct Patient Tobacco Use Status: Never used Tobacco Smoked in Last 30 Days: No Use of substances other than those prescribed or required for medical reasons: No Are you DNR?: Yes Advance Directives: No Advance Directives Information Provided: Yes Do you have a plan to hurt others: No Plan Poor oral hygiene: No service: No Current occupational status: retired Current occupation: retired Current occupational exposures/hazards: No Meds Allergies Allergy/AdvReac Type Severity Reaction Status Date / Time adhesive (ADHESIVE) Allergy Intermediate RASH, Verified 06/30/25 00:05 BLISTERS atenolol (Atenolol) Allergy Mild RASH Verified 06/30/25 00:05 oxycodone Allergy Mild Gastrointestinal Verified 06/30/25 00:05 Upset sotalol (Sotalol) Allergy Mild RASH Verified 06/30/25 00:05 tamsulosin Allergy Unknown reaction Verified 06/30/25 00:05 unknown tramadol Allergy Unknown reaction Verified 06/30/25 00:05 unknown atorvastatin (From Lipitor) AdvReac Severe SEVERE Verified 06/30/25 00:05 ACHES AND PAINS Active Medications: Current Medications Hydromorphone HCl (Hydromorphone Hcl 0.5 Mg/0.5 Ml Syringe) 0.5 mg IVPUSH Q3H PRN; Protocol PRN Reason: Pain, Severe (Pain Scale 7-10) Lactated Ringer's (Lr) 1,000 mls @ 100 mls/hr IVCONT .Q10H [place] Last Admin: 06/30/25 02:35 Dose: 100 mls/hr Ondansetron HCl (Ondansetron Hcl 4 Mg/2 Ml Vial) 4 mg IVPUSH QID PRN PRN Reason: Nausea Home Medications ?Medication ?Instructions ?Recorded ?Confirmed ?Last Taken ?Type doxazosin 4 mg tablet 4 mg PO BEDTIME 04/17/21 06/20/25 03/23/25 History spironolactone 25 mg tablet 25 mg PO DAILY 03/24/25 06/20/25 04/02/25 09:00 History furosemide 40 mg tablet 40 mg PO DAILY 06/13/25 06/20/25 Unknown History lisinopril 20 mg tablet 40 mg PO DAILY 06/13/25 06/20/25 Unknown History enoxaparin 40 mg/0.4 mL 40 mg subcut BID 06/20/25 06/27/25 06/26/25 16:30 History subcutaneous syringe finasteride 5 mg tablet 5 mg PO DAILY 06/30/25 Unknown History lisinopril 10 mg tablet 10 mg PO DAILY 06/30/25 Unknown History Exam Exam Date and Time: 06/30/25 0825 Height,Weight and Vital Signs: Height 6 ft 6 in Weight 107.955 kg Last Vital Signs Temp 98.5 F 06/30/25 07:52 Pulse 88 07/31/25 07:52 Resp 16 06/30/25 07:52 BP 147/66 H 06/30/25 07:52 Pulse Ox 99 06/30/25 07:52 O2 Del Method Room Air 06/30/25 07:52 Pertinent Lab Results Pertinent Lab Results: Laboratory Tests 06/30/25 06/30/25 06/30/25 00:19 00:20 00:24 WBC 8.2 RBC 2.67 L D Hgb 8.3 L D Hct 24.4 L D MCV 91.4 MCH 31.1 MCHC 34.0 RDW 25.3 H Plt Count 134 L MPV 11.1 Immature Gran % (Auto) 2.2 H Neut % (Auto) 33.5 L Lymph % (Auto) 31.5 [place] % (Auto) 31.9 H Eos % (Auto) 0.7 Baso % (Auto) 0.2 Lymph # (Auto) 2.6 [place] # (Auto) 2.6 H Eos # (Auto) 0.1 Baso # (Auto) 0.0 Abs Immat Gran (auto) 0.18 H Absolute Neuts (auto) 2.7 Absolute Nucleated RBC 0.080 H Nucleated RBC % (auto) 1.0 H Smear Tech's Comments VERIFIED PT 16.4 H INR 1.4 H APTT 27.2 Sodium 138 Potassium 4.1 Chloride 101 Carbon Dioxide 29 Anion Gap 12 BUN 18 H Creatinine 0.86 Estim Creat Clear Calc 75.2 Estimated GFR > 60 Random Glucose 111 Calcium 8.4 D Total Bilirubin 0.9 AST 35 ALT 20 Alkaline Phosphatase 52 Total Protein 6.5 Albumin 4.1 Blood Type A Negative Antibody Screen NEGATIVE Airway Mallampati Class: II TM Dist: >3cm Neck ROM: Limited Loose/Missing/Broken Teeth: No (patient denies any loose or broken teeth) Heart: S1S2 Lungs: CTAB Assessment and Plan Assessment Anesthesia Assessment: Anesthesia Plan Discussed and Chart Reviewed Final Anesthetic Review Family History of Problems with Anesthesia: No History of Problems with Anesthesia: No NPO: Yes ASA Class: III and Emergency Final Preanesthetic Review: No Changes in Pt Med Stat, Meds/Allgs Chart Reviewed, Consent Obtained/Reviewed, Anes Risks/Benef Reviewed and DNR Form (If Appl.) (DNR/DNI reversed to full code until discharged from PACU) Patient Risk: Intermediate Procedure Risk: Low Anesthetic Plan Anesthetic Plan: GA and Agree w/ Assess. and Plan Disposition: Standard PACU
--- NOTE | 2025-06-30 09:28 | P.OP_ITS ---
Operative Note Operative Note Date of Service: 06/30/25 Narrative: Preoperative diagnosis: Hematoma left upper leg Postoperative diagnosis: Same Procedure: Evacuation of hematoma left upper leg Surgeon: Paddy Kendall MD [place] [employer] Technician: Marilee England PA-C; Ahmet Lucas PA-C, MECHE Padron; Tasha Torres, MS-3; MECHE Cuevas Anesthesia: General LMA Indications for procedure: 89-year-old male patient status post excision of a large mass of the left upper leg now presenting with a bleeding hematoma at the space following excision. Patient is on Coumadin for AFib. He returns today for evacuation of this hematoma. Operative findings: Large clot with area of arterial bleeding noted in the upper portion of the incision. This was ligated. No other active bleeding could be identified. Specimen: None Drain: FADI size 7 to bulb suctioned Estimated blood loss: Approximately 200 old blood/clot Complications: None Procedure details: Patient brought to the OR and placed in a supine position. After administering general anesthesia the patient's left leg was prepped with Betadine and draped in a sterile fashion. A surgical time-out was called the consent confirmed. Patient received preoperative antibiotics and Venodyne boots were in place. Local anesthesia was infiltrated over the previous incision. Previous incision was opened and a large clot identified. This was evacuated the wounds examined. An area of arterial bleeding was identified in the upper portion of the incision. This was ligated using a 3-0 Polysorb suture. The remaining clot was then removed and the space irrigated with saline solution. Several areas of potential bleeding were identified and ligated as well. Thrombus statin snow was then applied to the surface and pressure held to assure hemostasis. No further bleeding could be identified. A 7 FADI drain was then placed and brought out through a separate stab incision in the lower portion of the incision. This was connected to bulb suctioned. Subcutaneous tissue and dermis were reapproximated using interrupted 3-0 Polysorb sutures. Skin was then closed using interrupted 3-0 nylon sutures. Sterile dressings consisting of fluff gauze and ABD pad were then applied. The patient tolerated the procedure well. Sponge, instrument, and needle counts reported as correct. The patient was transferred to PACU in stable condition.
--- NOTE | 2025-06-30 13:13 | MHC.CM.PN ---
[facility] DELIVERED PT LIVES WITH SPOUSE AND IS FUNCTIONALLY INDEPENDENT, +DRIVES. NO SERVICES OR DME. + HCP, COPY AT HOME AND ON FILE WITH MD OFFICE. COPY REQUESTED. PCP MISA (FORMERLY WITH DR. BLACK) DP: HOME, NO SERVICES IS THE GOAL. PT'S SPOUSE WILL TRANSPORT. CM WILL CONTINUE TO FOLLOW FOR ANY CHANGE TO DC PLAN/NEEDS.
--- NOTE | 2025-06-30 13:18 | PM.IMCN ---
History of Present Illness Data of Consult Service Date: 06/30/25 Requesting physician: Paddy Kendall Primary Care Provider: Unknown Physician HPI Reason for consult: Hematoma, AFib, medical management This is an 89-year-old male with history of atrial fibrillation, mechanical aortic valve, Guillain-Spencer syndrome with complete recovery, hypertension who underwent surgical resection of left hip mass on June 27 and returned to the emergency department today for bleeding found to have hematoma of the surgical site. He was brought to the OR for evacuation of hematoma and the hospitalists were asked to see him in medical consultation. Patient was seen after surgery, sitting up in bed in no acute distress. His pain is well controlled. He denies any dizziness, shortness of breath, chest pain. His anticoagulation was discontinued 4 days prior to surgery and he was transitioned to subcutaneous Lovenox. He then resumed his Coumadin 1 day post surgery with his last dose June 29. Review of Systems Review of Systems: Yes all other systems are reviewed and are negative Constitutional: Constitutional: Denies chills and Denies fever(s) Cardiovascular: Cardiovascular: Denies chest pain and Denies palpitations Endocrine: Endocrine: Denies palpitations [facility] Medical History Aortic valve disease Eye injury Prosthetic eye globe Pneumonia Osteoarthritis Anemia Neuropathy Guillain-Spencer syndrome HTN (hypertension) Leukopenia Atrial fibrillation Surgical History Hx of enucleation of right eyeball Hx of cataract extraction H/O colonoscopy Hx of aortic valve replacement History of cholecystectomy Social History Household Members: Spouse Housing: House Are you a primary before and after school daycare worker to a significant other at home: No Do you presently have visiting nurse or other home services: No Alcohol intake: current Alcohol intake frequency: holidays/special occasions only Alcohol type: wine Comment: counts correct Patient Tobacco Use Status: Never used Tobacco Smoked in Last 30 Days: No Use of substances other than those prescribed or required for medical reasons: No Are you DNR?: Yes Advance Directives: No Advance Directives Information Provided: Yes Do you have a plan to hurt others: No Plan Poor oral hygiene: No service: No Current occupational status: retired Current occupation: retired Current occupational exposures/hazards: No Meds Allergies Allergy/AdvReac Type Severity Reaction Status Date / Time adhesive (ADHESIVE) Allergy Intermediate RASH, Verified 06/30/25 00:05 BLISTERS atenolol (Atenolol) Allergy Mild RASH Verified 06/30/25 00:05 oxycodone Allergy Mild Gastrointestinal Verified 06/30/25 00:05 Upset sotalol (Sotalol) Allergy Mild RASH Verified 06/30/25 00:05 tamsulosin Allergy Unknown reaction Verified 06/30/25 00:05 unknown tramadol Allergy Unknown reaction Verified 06/30/25 00:05 unknown atorvastatin (From Lipitor) AdvReac Severe SEVERE Verified 06/30/25 00:05 ACHES AND PAINS Active Medications: Current Medications Fentanyl (Fentanyl Citrate/Pf 100 Mcg/2 Ml Vial) 25 mcg IVPUSH Q5M PRN PRN Reason: Pain, Moderate to Severe (Pain Scale 4-10) Stop: 06/30/25 16:12 Last Admin: 06/30/25 10:38 Dose: 25 mcg Haloperidol Lactate (Haloperidol Lactate 5 Mg/Ml Vial) 0.5 mg IVPUSH ONCE PRN PRN Reason: intractable nausea Stop: 06/30/25 14:51 Hydromorphone HCl (Hydromorphone Hcl 0.5 Mg/0.5 Ml Syringe) 0.5 mg IVPUSH Q3H PRN; Protocol PRN Reason: Pain, Severe (Pain Scale 7-10) Lactated Ringer's (Lr) 1,000 mls @ 100 mls/hr IVCONT .Q10H CHINO Last Admin: 06/30/25 11:37 Dose: 100 mls/hr Acetaminophen (Ofirmev) 1,000 mg in 100 mls @ 400 mls/hr IV Q6H PRN PRN Reason: Pain, Mild (Pain Scale 1-3) Ondansetron HCl (Ondansetron Hcl 4 Mg/2 Ml Vial) 4 mg IVPUSH QID PRN PRN Reason: Nausea Home Medications ?Medication ?Instructions ?Recorded ?Confirmed ?Last Taken ?Type doxazosin 4 mg tablet 4 mg PO BEDTIME 04/17/21 06/30/25 06/29/25 History spironolactone 25 mg tablet 25 mg PO DAILY 04/06/30/25 06/29/25 History furosemide 40 mg tablet 40 mg PO DAILY 06/13/25 06/30/25 06/29/25 History lisinopril 20 mg tablet 40 mg PO DAILY 06/13/25 06/30/25 06/29/25 History finasteride 5 mg tablet 5 mg PO DAILY 06/30/25 06/30/25 06/29/25 History warfarin 1 mg tablet 5 mg PO SUTUWETHSA@1800 06/30/25 06/30/25 06/29/25 History warfarin 4 mg tablet 4 mg PO MOFR@1800 06/30/25 06/30/25 06/27/25 History Physical Exam Vital Signs and Narrative: Vital Signs: Last Vital Signs Temp 96.9 F 06/30/25 11:58 Pulse 68 06/30/25 11:58 Resp 17 06/30/25 11:58 BP 145/68 H 06/30/25 11:58 Pulse Ox 99 06/30/25 11:58 O2 Del Method Nasal Cannula 06/30/25 11:58 O2 Flow Rate 2.0 06/30/25 11:58 BMI result Body Mass Index 27.5 Const: General: cooperative, comfortable, no acute distress, alert and awake Nutritional Appearance: average body habitus Orientation/consciousness: patient oriented x3 Eyes: Other: Left eye prosthetic Resp: Effort & Inspection: normal respiratory effort, able to speak in complete sentences, no respiratory distress and no use of accessory muscles GI: Inspection: No distended Palpation (GI): Soft to palpation Neuro: General: patient oriented x3 Extrem: Other: Left hip with clean/dry/intact dressing. FADI drain with scant bloody output Results Labs 06/30/25 14:02 06/30/25 00:20 Labs: Laboratory Results - last 24 hr 06/30/25 06/30/25 06/30/25 00:19 00:20 00:24 MCV 91.4 MCH 31.1 MCHC 34.0 RDW 25.3 H Plt Count 134 L MPV 11.1 Immature Gran % (Auto) 2.2 H Neut % (Auto) 33.5 L Lymph % (Auto) 31.5 [place] % (Auto) 31.9 H Eos % (Auto) 0.7 Baso % (Auto) 0.2 Lymph # (Auto) 2.6 [place] # (Auto) 2.6 H Eos # (Auto) 0.1 Baso # (Auto) 0.0 Abs Immat Gran (auto) 0.18 H Absolute Neuts (auto) 2.7 Absolute Nucleated RBC 0.080 H Nucleated RBC % (auto) 1.0 H Smear Tech's Comments VERIFIED PT 16.4 H INR 1.4 H APTT 27.2 Anion Gap 12 Estim Creat Clear Calc 75.2 Estimated GFR > 60 Random Glucose 111 Calcium 8.4 D Total Bilirubin 0.9 AST 35 ALT 20 Alkaline Phosphatase 52 Total Protein 6.5 Albumin 4.1 Blood Type A Negative Antibody Screen NEGATIVE Assessment and Plan (1) Atrial fibrillation: Qualifiers: Atrial fibrillation type: persistent (not longstanding) Qualified Code(s): I48.19 - Other persistent atrial fibrillation Status: Acute (2) Current use of anticoagulant therapy: Status: Acute (3) Postoperative anemia due to acute blood loss: Status: Acute Plan This is a 89-year-old male with a history of mechanical aortic valve, atrial fibrillation on anticoagulation with Coumadin, hypertension, history of Guillain-Spencer are with complete recovery who recently underwent resection of left hip mass and presented to the emergency department with bleeding found to have hematoma and acute bleeding of the surgical site status post hematoma evacuation and ligation of arterial bleeding site. Acute blood loss anemia due to hematoma from left hip surgical site Status post hematoma evacuation 06/30 Anticoagulation currently on hold Repeat H/H stable Monitor H/H closely and consider blood transfusion with further drop will defer pain management to surgical team, on po dilaudid at home; currently denies acute pain Mechanical aortic valve/chronic atrial fibrillation Last dose of Coumadin June 29 Coumadin on hold Tentative plan to resume Coumadin bridge with Lovenox 07/01 if safe from surgical perspective Monitor INR daily Thrombocytopenia Appears chronic Trending down likely due to component of dilution from IVF Monitor CBC BPH continue doxazosin, finasteride Hypertension Blood pressure appears stable at this time continue baseline medication including lisinopril, spironolactone, Lasix Monitor blood pressure closely HLD Continue statin Thank you for allowing us to participate in the care of this patient. We will follow along with you
[2025-06-30 14:09] LABS: Hematocrit 24.0 % (42.0-52.0); Hemoglobin 8.1 g/dl (14.0-18.0); Mean Corpuscular HGB Conc 33.8 g/dl (31.0-36.0); Mean Corpuscular Hemoglobin 31.4 pg (27.0-33.0); Mean Corpuscular Volume 93.0 fL (80.0-98.0); NRBC Abs Auto 0.030 X10*3/uL (0.0-0.012); NRBC Pct Auto 0.5 /100WBC (0.0-0.2); Platelet Count 120 X10*3/uL (160-400); Red Blood Count 2.58 X10*6/uL (4.60-5.80); White Blood Count 5.7 X10*3/uL (4.8-10.8)
--- NOTE | 2025-06-30 14:16 | PHA.MEDREC ---
Addendum entered by Светлана Almeida RPh 06/30/25 14:24: Reviewed by [facility] Original Note: Pharmacy Consult ? Medication Reconciliation Pharmacy has completed the medication reconciliation.Spoke to patient. patient was able to confirm no longer taking enoxaparin 40mg , lisinopril 10mg, furosimide 40mg and metoprolol succinate 100mg. Patient confirmed taking warfarin 5 mg 5 days a week and taking 4 mg on friday and friday. medications last taken last night except for warfarin 4mg taken friday.
[2025-07-01] VITALS (14 sets, daily range): BP systolic 90–163; BP diastolic 51–77; PULSE 82–96; RESP 14–95; TEMP 36.4–37.4; O2SAT 93–97
--- NOTE | 2025-07-01 | ECG_ITS ---
Test Reason : RR Blood Pressure : */* mmHG Vent. Rate : 96 BPM Atrial Rate : 84 BPM P-R Int : * ms QRS Dur : 142 ms QT Int : 396 ms P-R-T Axes : * -28 83 degrees QTcB Int : 500 ms Atrial fibrillation Left bundle branch block Abnormal ECG When compared with ECG of 02-Apr-2025 11:26, QT has lengthened Referred By: Izzy Cano Electronically Signed By: MARITO BRANHAM MD
[2025-07-01] MEDS: Lactated Ringers 1,000 ML 100 ML IVCONT ×2 (06:15→15:44)
[2025-07-01 07:08] LABS: Hemoglobin 7.1 g/dl (14.0-18.0); NRBC Abs Auto 0.090 X10*3/uL (0.0-0.012); PLT CLUMP 1
[2025-07-01 07:10] LABS: Mean Corpuscular HGB Conc 34.8 g/dl (31.0-36.0); Mean Corpuscular Hemoglobin 31.7 pg (27.0-33.0); Mean Corpuscular Volume 91.1 fL (80.0-98.0); Red Blood Count 2.24 X10*6/uL (4.60-5.80)
[2025-07-01 07:22] LABS: INTERNATIONAL NORM RATIO 1.7 (0.9-1.1); Prothrombin Time 19.9 SEC (10.9-12.4)
[2025-07-01 07:26] LABS: Hematocrit 20.4 % (42.0-52.0); NRBC Pct Auto 1.0 /100WBC (0.0-0.2); PLT ABN DIST 1
[2025-07-01 07:40] LABS: Platelet Count 122 X10*3/uL (160-400); White Blood Count 8.9 X10*3/uL (4.8-10.8)
[2025-07-01 07:50] LABS: Band Neutrophils Percent 10 % (3-5); Lymphocytes Absolute Manual 1.5 X10*3/uL (1.2-4.9); Lymphocytes Percent Manual 17 % (20-40); Monocytes Absolute Manual 1.2 X10*3/uL (0.1-1.2); Monocytes Percent Manual 14 % (2-11); Neutrophils Absolute Manual 6.1 X10*3/uL (2.0-8.3); Neutrophils Percent Manual 59 % (45-73)
[2025-07-01 07:52] LABS: RBC Morphology NOTED
[2025-07-01 07:53] LABS: Burr Cells 1+ (0-2) /OIF; Schistocytes 1+ (0-2) /OIF; Tear Drop Cells 1+ (0-2) /OIF
[2025-07-01 07:54] LABS: Hypochromasia 1+ (5-14) /OIF
--- NOTE | 2025-07-01 08:47 | HO.POSTANES ---
Post Anesthesia Evaluation Post Anesthesia Evaluation Date of Service: 07/01/25 Vital Signs: Vital Signs Temp Pulse Resp BP Pulse Ox O2 Del Method 07/01/25 07:24 97.7 F 88 14 154/72 H 94 Room Air 07/01/25 03:47 97.5 F 83 18 141/68 H 95 Room Air 07/01/25 00:00 98 F 96 18 163/77 H 95 Room Air Anesthesia: General Mental Status: Awake Pain Control: Satisfactory Nausea/Vomiting: None Hydration: Adequate Anesthesia-Related Issues: No Anes. Related Issues
--- NOTE | 2025-07-01 08:48 | PM.PNGS ---
Subjective Subjective Date of Service: 07/01/25 <Ahmet Lucas PA-C - Last Filed: 07/01/25 09:01> 07/01/25 <Paddy Kendall MD - Last Filed: 07/01/25 09:44> Interval history: doing well, denies pain, some discomfort. wanted to stop using ice to see what the drain has coming out this afternoon. FADI ouput 120 in past 24. dark blood. Denies fever or chills <Ahmet Lucas PA-C - Last Filed: 07/01/25 09:01> Physical Exam Vital Signs: Vital Signs: Last Vital Signs Temp 97.7 F 07/01/25 07:24 Pulse 88 07/01/25 07:24 Resp 14 07/01/25 07:24 BP 154/72 H 07/01/25 07:24 Pulse Ox 94 07/01/25 07:24 O2 Del Method Room Air 07/01/25 07:24 O2 Flow Rate 2 06/30/25 14:57 BMI result Body Mass Index 28.0 <Ahmet Lucas PA-C - Last Filed: 07/01/25 09:01> Const: General: comfortable and no acute distress <Ahmet Lucas PA-C - Last Filed: 07/01/25 09:01> Orientation/consciousness: patient oriented x3 <Ahmet Lucas PA-C - Last Filed: 07/01/25 09:01> Resp: Effort & Inspection: normal respiratory effort and able to speak in complete sentences <Ahmet Lucas PA-C - Last Filed: 07/01/25 09:01> Neuro: General: patient oriented x3 <Ahmet Lucas PA-C - Last Filed: 07/01/25 09:01> Extrem: Other: proximal left lower extremity: FADI in place, dressings in place, FADI is 120 cc in past 24, dark blood. Mildly tender. surrounding bruising. <POWER Larson Last Filed: 07/01/25 09:01> Objective Data Active Medications Albuterol Sulfate (Albuterol Sulfate 90 Mcg 8 Gm Inhaler) 2 puff INHALE RQ6H PRN PRN Reason: shortness of breath or wheezing Doxazosin Mesylate (Doxazosin Mesylate 2 Mg Tablet) 4 mg PO BEDTIME CHINO; Protocol Last Admin: 06/30/25 19:55 Dose: 4 mg Documented By: DAMIÁN Finasteride (Finasteride 5 Mg Tablet) 5 mg PO DAILY CHINO Furosemide (Furosemide 40 Mg Tablet) 40 mg PO DAILY CHINO; Protocol Hydromorphone HCl (Hydromorphone Hcl 0.5 Mg/0.5 Ml Syringe) 0.5 mg IVPUSH Q3H PRN; Protocol PRN Reason: Pain, Severe (Pain Scale 7-10) Acetaminophen (Ofirmev) 1,000 mg in 100 mls @ 400 mls/hr IV Q6H PRN PRN Reason: Pain, Mild (Pain Scale 1-3) Lisinopril (Lisinopril 40 Mg Tablet) 40 mg PO DAILY CHINO; Protocol Non-Formulary Medication (Rosuvastatin) 40 mg PO DAILY CHINO Ondansetron HCl (Ondansetron Hcl 4 Mg/2 Ml Vial) 4 mg IVPUSH QID PRN PRN Reason: Nausea Spironolactone (Spironolactone 25 Mg Tablet) 25 mg PO DAILY CHINO; Protocol <Ahmet Lucas PA-C - Last Filed: 07/01/25 09:01> Labs CBC & Chem 7: 07/01/25 06:41 06/30/25 00:20 <Ahmet Lucas PA-C - Last Filed: 07/01/25 09:01> Labs: Laboratory Results - last 24 hr 06/30/25 06/30/25 07/01/25 00:24 14:02 06:41 MCV 93.0 91.1 MCH 31.4 31.7 MCHC 33.8 34.8 RDW 25.3 H 25.2 H Plt Count 120 L 122 L MPV 10.9 11.3 Immature Gran % (Auto) Cancelled Neut % (Auto) Cancelled Lymph % (Auto) Cancelled [place] % (Auto) Cancelled Eos % (Auto) Cancelled Baso % (Auto) Cancelled Lymph # (Auto) Cancelled [place] # (Auto) Cancelled Eos # (Auto) Cancelled Baso # (Auto) Cancelled Abs Immat Gran (auto) Cancelled Absolute Neuts (auto) Cancelled Absolute Nucleated RBC 0.030 H 0.090 H Nucleated RBC % (auto) 0.5 H 1.0 H Neutrophils % (Manual) 59 Band Neutrophils % 10 H Lymphocytes % (Manual) 17 L Monocytes % (Manual) 14 H Abs Neuts (Manual) 6.1 Lymphocytes # (Manual) 1.5 Monocytes # (Manual) 1.2 Nucleated RBCs 2 H Platelet Estimate SLIGHTLY DECREASED Plt Morphology Comment NORMAL RBC Morphology NOTED Hypochromasia 1+ (5-14) Tear Drop Cells 1+ (0-2) Hill Cells 1+ (0-2) Schistocytes 1+ (0-2) Smear Tech's Comments MANUAL DIFF PT 19.9 H D INR 1.7 H Blood Type A Negative Antibody Screen NEGATIVE Crossmatch See Detail <Ahmet Lucas PA-C - Last Filed: 07/01/25 09:01> Procedures Date of Service Date of Service: 07/01/25 <Ahmet Lucas PA-C - Last Filed: 07/01/25 09:01> 07/01/25 <Paddy Kendall MD - Last Filed: 07/01/25 09:44> Progress Note: A&P Assessment and plan (1) Postoperative anemia due to acute blood loss: Status: Acute <Ahmet Lucas PA-C - Last Filed: 07/01/25 09:01> (2) Hematoma: Status: Acute <Ahmet Lucas PA-C - Last Filed: 07/01/25 09:01> Assessment and Plan: 89 year old male POD 1 hematoma evacuation of the left proximal lower extremity. Overall patient looks well. Comfortable in bed. endorsing mild discomfort in the area. denies fever or chills. On exam the area is mildly tender to palpation, the dressings are in place, no strike through. FADI remains in place, 120 cc in past 20, dark red blood, remains patent. Patient H/H trending down 7.1/20.4, hospitalist ordering packed red blood cells. warfarin was resumed yesterday. Will continue to closely monitor H/H trends. FADI maintenence PRBC transfusion this morning diet as tolerated <POWER Larson Last Filed: 07/01/25 09:01> 89 year old male POD 1 hematoma evacuation of the left proximal lower extremity. Overall patient looks well. Comfortable in bed. endorsing mild discomfort in the area. denies fever or chills. On exam the area is mildly tender to palpation, the dressings are in place, no strike through. FADI remains in place, 120 cc in past 20, dark red blood, remains patent. Patient H/H trending down 7.1/20.4, hospitalist ordering packed red blood cells. warfarin was resumed yesterday. Will continue to closely monitor H/H trends. FADI maintenence PRBC transfusion this morning diet as tolerated Patient feels much improved this morning. FADI with small amount of dark blood. Agree with transfusion today. No evidence of active bleeding at this time. Patient will require continued hospitalization to monitor H&H and wound. Possible discharge over the weekend. <Paddy Kendall MD - Last Filed: 07/01/25 09:44> Time Spent With Patient Time: Total time managing care of this patient today ____ minutes. <Ahmet Lucas PA-C - Last Filed: 07/01/25 09:01> Quality Stroke Does the patient have a stroke diagnosis?: No <Ahmet Lucas PA-C - Last Filed: 07/01/25 09:01> VTE Prior VTE?: No <Ahmet Lucas PA-C - Last Filed: 07/01/25 09:01> VTE Risk Level:: Surgical - moderate <Ahmet Lucas PA-C - Last Filed: 07/01/25 09:01> VTE Device Contraindication: N/A - Device Ordered <Ahmet Lucas PA-C - Last Filed: 07/01/25 09:01> VTE Drug Contraindication: N/A - Med Ordered <Ahmet Lucas PA-C - Last Filed: 07/01/25 09:01>
--- NOTE | 2025-07-01 13:40 | HO.PM.IMPN ---
Subjective Subjective Date of Service: 07/01/25 Interval History: Seen and examined this morning Follow-up for medical consultation Awake alert and in no acute distress Denies dizziness, shortness of breath, chest pain Review of Systems Review of Systems: Yes all other systems are reviewed and are negative Constitutional Constitutional: Denies chills and Denies fever(s) Cardiovascular Cardiovascular: Reports chest pain and Denies palpitations Endocrine Endocrine: Denies palpitations Physical Exam Vital Signs: Vital Signs: Last Vital Signs Temp 98.5 F 07/01/25 11:53 Pulse 93 07/01/25 11:53 Resp 18 07/01/25 11:53 BP 103/53 L 07/01/25 11:53 Pulse Ox 94 07/01/25 11:53 O2 Del Method Room Air 07/01/25 11:53 O2 Flow Rate 2 06/30/25 14:57 BMI result Body Mass Index 28.0 Const: General: cooperative, comfortable, no acute distress, alert and awake Nutritional Appearance: average body habitus Orientation/consciousness: patient oriented x3 Eyes: Other: Left eye prosthetic Resp: Effort & Inspection: normal respiratory effort, able to speak in complete sentences, no respiratory distress and no use of accessory muscles GI: Inspection: No distended Palpation (GI): Soft to palpation Neuro: General: patient oriented x3 Extrem: Other: Left hip with clean/dry/intact dressing. FADI drain with scant bloody output Objective Data Active Medications Albuterol Sulfate (Albuterol Sulfate 90 Mcg 8 Gm Inhaler) 2 puff INHALE RQ6H PRN PRN Reason: shortness of breath or wheezing Doxazosin Mesylate (Doxazosin Mesylate 2 Mg Tablet) 4 mg PO BEDTIME [facility]; Protocol Last Admin: 06/30/25 19:55 Dose: 4 mg Documented By: DAMIÁN Enoxaparin Sodium (Enoxaparin Sodium 120 Mg/0.8 Ml Syringe) 105 mg 1 mg/kg (105 mg) SUBCUT Q12H [facility] Last Admin: 07/01/25 11:40 Dose: 105 mg Documented By: RENETTA Finasteride (Finasteride 5 Mg Tablet) 5 mg PO DAILY [facility] Last Admin: 07/01/25 09:36 Dose: 5 mg Documented By: RENETTA Furosemide (Furosemide 40 Mg Tablet) 40 mg PO DAILY [facility]; Protocol Last Admin: 07/01/25 09:35 Dose: 40 mg Documented By: RENETTA Hydromorphone HCl (Hydromorphone Hcl 0.5 Mg/0.5 Ml Syringe) 0.5 mg IVPUSH Q3H PRN; Protocol PRN Reason: Pain, Severe (Pain Scale 7-10) Acetaminophen (Ofirmev) 1,000 mg in 100 mls @ 400 mls/hr IV Q6H PRN PRN Reason: Pain, Mild (Pain Scale 1-3) Sodium Chloride (Ns) 500 mls @ 500 mls/hr IV .Q1H [facility] Stop: 07/01/25 14:29 Last Admin: 07/01/25 13:33 Dose: 500 mls/hr Documented By: AVIS Lisinopril (Lisinopril 40 Mg Tablet) 40 mg PO DAILY [facility]; Protocol Last Admin: 07/01/25 09:35 Dose: 40 mg Documented By: RENETTA Non-Formulary Medication (Rosuvastatin) 40 mg PO DAILY [facility] Ondansetron HCl (Ondansetron Hcl 4 Mg/2 Ml Vial) 4 mg IVPUSH QID PRN PRN Reason: Nausea Spironolactone (Spironolactone 25 Mg Tablet) 25 mg PO DAILY [facility]; Protocol Last Admin: 07/01/25 09:35 Dose: 25 mg Documented By: RENETTA Warfarin Sodium (Warfarin Sodium 5 Mg Tablet) 5 mg PO DAILY@1800 [facility] Labs 07/01/25 06:41 06/30/25 00:20 Labs: Laboratory Results - last 24 hr 06/30/25 06/30/25 07/01/25 00:24 14:02 06:41 MCV 93.0 91.1 MCH 31.4 31.7 MCHC 33.8 34.8 RDW 25.3 H 25.2 H Plt Count 120 L 122 L MPV 10.9 11.3 Immature Gran % (Auto) Cancelled Neut % (Auto) Cancelled Lymph % (Auto) Cancelled [place] % (Auto) Cancelled Eos % (Auto) Cancelled Baso % (Auto) Cancelled Lymph # (Auto) Cancelled [place] # (Auto) Cancelled Eos # (Auto) Cancelled Baso # (Auto) Cancelled Abs Immat Gran (auto) Cancelled Absolute Neuts (auto) Cancelled Absolute Nucleated RBC 0.030 H 0.090 H Nucleated RBC % (auto) 0.5 H 1.0 H Neutrophils % (Manual) 59 Band Neutrophils % 10 H Lymphocytes % (Manual) 17 L Monocytes % (Manual) 14 H Abs Neuts (Manual) 6.1 Lymphocytes # (Manual) 1.5 Monocytes # (Manual) 1.2 Nucleated RBCs 2 H Platelet Estimate SLIGHTLY DECREASED Plt Morphology Comment NORMAL RBC Morphology NOTED Hypochromasia 1+ (5-14) Tear Drop Cells 1+ (0-2) [place] Cells 1+ (0-2) Schistocytes 1+ (0-2) Smear Tech's Comments MANUAL DIFF PT 19.9 H D INR 1.7 H Blood Type A Negative Antibody Screen NEGATIVE Crossmatch See Detail Assessment and Plan (1) Postoperative anemia due to acute blood loss: Status: Acute (2) Aortic valve disease: Status: Acute Plan This is a 89-year-old male with a history of mechanical aortic valve, atrial fibrillation on anticoagulation with Coumadin, hypertension, 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 Acute blood loss anemia due to hematoma from left hip surgical site Status post hematoma evacuation 06/30 Repeat H/H this am trending down, pt has h/o transfusion reaction and would prefer to defer blood transfusion as he is not symptomatic. he does agree for blood transfusion if H/H trends down further or if he becomes symptomatic. We will repeat H/H this afternoon will defer pain management to surgical team, on po dilaudid at home; currently denies acute pain Mechanical aortic valve/chronic atrial fibrillation Last dose of Coumadin June 29 will resume therapeutic Lovenox and Coumadin Monitor INR daily Thrombocytopenia Appears chronic Trending down likely due to component of dilution from IVF Monitor CBC BPH continue doxazosin, finasteride Hypertension Blood pressure trending down hold baseline lisinopril, lasix and aldactone Monitor blood pressure closely HLD Continue statin Thank you for allowing us to participate in the care of this patient. We will follow along with you Quality Stroke Does the patient have a stroke diagnosis?: No VTE Prior VTE?: No VTE Risk Level:: Surgical - moderate VTE Device Contraindication: N/A - Device Ordered VTE Drug Contraindication: N/A - Med Ordered
--- NOTE | 2025-07-01 13:59 | MHC.CM.PN ---
pt is surgical possible dc later today
[2025-07-01 14:03] LABS: Hemoglobin 6.8 g/dl (14.0-18.0)
[2025-07-01 14:04] LABS: Hematocrit 20.0 % (42.0-52.0)
--- NOTE | 2025-07-01 14:17 | PM.EVENT ---
Event Note Date of Service: 07/01/25 Event Note: An episode of decreased vision, felt his blood pressure dropped BP 102/51 with a pulse of 90. Repeat H&H .07/20 Patient started on IV fluid Wounds checked, drain intact with minimal output. No evidence of ongoing bleeding. Discussed with Dorene Monaco PA-C. There is a apparent history of transfusion reaction in the past. We will recheck H&H in a.m.. If continued downward trend, may need transfusion with the premedication Time Spent With Patient Time: Total time managing care of this patient today ____ minutes.
--- NOTE | 2025-07-01 16:20 | PM.EVENT ---
Event Note Date of Service: 07/01/25 Event Note: Patient reexamined. Patient also having some muscle aching around the knee. BP 98/60. Leg with mild swelling at incision. Dark old blood noted in FADI drain. Discussed transfusion of PRBCs with patient and he is in agreement. Time Spent With Patient Time: Total time managing care of this patient today ____ minutes.
[2025-07-01 18:43] LABS: Glucose, Whole Blood 135 mg/dL (60-115)
[2025-07-01] MEDS: Lactated Ringers 500 ML 999 ML IV (18:51)
--- NOTE | 2025-07-01 18:51 | P.EN_ITS ---
Event Note Date of Service: 07/01/25 Event Note: Rapid response was called for pt who was being transfused 1 unit of PRBCs and had presyncopal episode with lightheadedness and vision ?blacking out?. Vitals significant for pt being hypotensive at 80/45. Afebrile. Pt had similar episode earlier in the day at 13:30 after IVF has been stopped. Patient's H&H at that time was noted to have dropped to 6.8/20.0 and fluids were resumed and pt was premedicated with Benadryl and Tylenol prior to transfusion due to p revious transfusion reactions. Patient's current episode of hypotension occurred after IVF was stopped and 15 minutes into patient's blood transfusion. Pt was placed in Trendelenburg position and given 500 cc fluid bolus to good effect and return of vision. Pt currently states he feels back to his baseline. EKG without significant ischemic changes, similar to previous. Pt denied any other acute medical complaints, including chest pain or pressure. Episode likely secondary to hypovolemia; unlikely to be transfusion reaction. Will resume transfusion after bolus and closely monitor BP. Time Spent With Patient Time: Total time managing care of this patient today ____ minutes.
[2025-07-02] VITALS (15 sets, daily range): BP systolic 114–147; BP diastolic 59–68; PULSE 70–101; RESP 16–20; TEMP 36.7–38; O2SAT 91–97
[2025-07-02] MEDS: Lactated Ringers 1,000 ML 100 ML IVCONT ×3 (04:16→19:56)
--- NOTE | 2025-07-02 05:48 | PC.NURSE ---
Pt s/p L hip hematoma evacuation. FADI drained 180 ml of sanguineous drainage. Pt c/o pain 09/09 Prn Dilaudid 0.5 mg , pt stated that it was not effective. MD Kendall notified. New order received to administer a second dose of Dilaudid 0.5 mg. Per he will be in this AM to see the pt.
--- NOTE | 2025-07-02 06:37 | P.PNGS_ITS ---
Subjective Subjective Date of Service: 07/02/25 Interval history: Patient developed increased pain and bleeding from FADI drain overnight. Physical Exam 2 Vital Signs: Vital Signs: Last Vital Signs Temp 98.1 F 07/02/25 03:18 Pulse 70 07/02/25 03:18 Resp 16 07/02/25 03:18 BP 124/59 L 07/02/25 03:18 Pulse Ox 96 07/02/25 03:18 O2 Del Method Room Air 07/02/25 03:18 O2 Flow Rate 2 06/30/25 14:57 BMI result Body Mass Index 28.0 Const: General: no acute distress and tired appearing Nutritional Appearance: well nourished Orientation/consciousness: patient oriented x3 Limitations: no limitations Resp: Effort & Inspection: normal respiratory effort, no audible wheezes, no cough and no respiratory distress Neuro: General: patient oriented x3 Extrem: Other: Left leg hematoma with some bloody discharge, FADI producing fresh blood Objective Data Active Medications Albuterol Sulfate (Albuterol Sulfate 90 Mcg 8 Gm Inhaler) 2 puff INHALE RQ6H PRN PRN Reason: shortness of breath or wheezing Doxazosin Mesylate (Doxazosin Mesylate 2 Mg Tablet) 4 mg PO BEDTIME [facility]; Protocol Last Admin: 07/01/25 21:05 Dose: Not Given Documented By: ESAU Non-Admin Reason: med held Enoxaparin Sodium (Enoxaparin Sodium 120 Mg/0.8 Ml Syringe) 105 mg 1 mg/kg (105 mg) SUBCUT Q12H [facility] Last Admin: 07/01/25 20:58 Dose: 105 mg Documented By: ESAU Finasteride (Finasteride 5 Mg Tablet) 5 mg PO DAILY [facility] Last Admin: 07/01/25 09:36 Dose: 5 mg Documented By: RENETTA Hydromorphone HCl (Hydromorphone Hcl 0.5 Mg/0.5 Ml Syringe) 0.5 mg IVPUSH Q3H PRN; Protocol PRN Reason: Pain, Severe (Pain Scale 7-10) Last Admin: 07/02/25 04:38 Dose: 0.5 mg Documented By: ESAU Acetaminophen (Ofirmev) 1,000 mg in 100 mls @ 400 mls/hr IV Q6H PRN PRN Reason: Pain, Mild (Pain Scale 1-3) Lactated Ringer's (Lr) 1,000 mls @ 100 mls/hr IVCONT .Q10H [facility] Last Admin: 07/02/25 04:16 Dose: 100 mls/hr Documented By: ESAU Non-Formulary Medication (Rosuvastatin) 40 mg PO DAILY [facility] Ondansetron HCl (Ondansetron Hcl 4 Mg/2 Ml Vial) 4 mg IVPUSH QID PRN PRN Reason: Nausea Warfarin Sodium (Warfarin Sodium 5 Mg Tablet) 5 mg PO DAILY@1800 [facility] Last Admin: 07/01/25 17:09 Dose: 5 mg Documented By: RENETTA Labs 07/01/25 13:37 06/30/25 00:20 Labs: Laboratory Results - last 24 hr 06/30/25 07/01/25 07/01/25 00:24 06:41 18:39 MCV 91.1 MCH 31.7 MCHC 34.8 RDW 25.2 H Plt Count 122 L MPV 11.3 Immature Gran % (Auto) Cancelled Neut % (Auto) Cancelled Lymph % (Auto) Cancelled [place] % (Auto) Cancelled Eos % (Auto) Cancelled Baso % (Auto) Cancelled Lymph # (Auto) Cancelled [place] # (Auto) Cancelled Eos # (Auto) Cancelled Baso # (Auto) Cancelled Abs Immat Gran (auto) Cancelled Absolute Neuts (auto) Cancelled Absolute Nucleated RBC 0.090 H Nucleated RBC % (auto) 1.0 H Neutrophils % (Manual) 59 Band Neutrophils % 10 H Lymphocytes % (Manual) 17 L Monocytes % (Manual) 14 H Abs Neuts (Manual) 6.1 Lymphocytes # (Manual) 1.5 Monocytes # (Manual) 1.2 Nucleated RBCs 2 H Platelet Estimate SLIGHTLY DECREASED Plt Morphology Comment NORMAL RBC Morphology NOTED Hypochromasia 1+ (5-14) Tear Drop Cells 1+ (0-2) [place] Cells 1+ (0-2) Schistocytes 1+ (0-2) Smear Tech's Comments MANUAL DIFF PT 19.9 H D INR 1.7 H POC Glucose 135 H Blood Type A Negative Antibody Screen NEGATIVE Crossmatch See Detail Procedures Date of Service Date of Service: 07/02/25 Progress Note: A&P Assessment and plan (1) Aortic valve disease: Status: Acute (2) Anemia: Status: Acute (3) Current use of anticoagulant therapy: Status: Acute (4) Hematoma: Status: Acute Plan Patient developed rebleeding from the left leg hematoma with FADI producing fresh blood. Patient was now anticoagulated due to mechanical valve. Discussed with the patient and he agrees the wounds need to be re-examined under anesthesia to control the active bleeding. After discussion of the procedure, risks and alternatives, he consents to the evacuation of left leg hematoma. He has been added onto the operative schedule for this morning. Time Spent With Patient Time: Total time managing care of this patient today ____ minutes. Quality Stroke Does the patient have a stroke diagnosis?: No VTE Prior VTE?: No VTE Risk Level:: Surgical - moderate VTE Device Contraindication: N/A - Device Ordered VTE Drug Contraindication: N/A - Med Ordered
[2025-07-02 07:32] LABS: INTERNATIONAL NORM RATIO 1.6 (0.9-1.1); Prothrombin Time 18.7 SEC (10.9-12.4)
[2025-07-02 07:38] LABS: Hematocrit 21.8 % (42.0-52.0); Hemoglobin 7.4 g/dl (14.0-18.0); Mean Corpuscular HGB Conc 33.9 g/dl (31.0-36.0); Mean Corpuscular Hemoglobin 31.2 pg (27.0-33.0); Mean Corpuscular Volume 92.0 fL (80.0-98.0); NRBC Abs Auto 0.050 X10*3/uL (0.0-0.012); NRBC Pct Auto 0.5 /100WBC (0.0-0.2); Platelet Count 133 X10*3/uL (160-400); Red Blood Count 2.37 X10*6/uL (4.60-5.80); White Blood Count 9.6 X10*3/uL (4.8-10.8)
--- NOTE | 2025-07-02 07:48 | HO.ANESPROP2 ---
HPI - Anesthesia Eval Consult details Narrative: Recurrent post-surgical hematoma PMFSH Active Problems Active Problems: All Active Problems Aortic valve disease (Acute) Hematoma (Acute) Postoperative anemia due to acute blood loss (Acute) Anemia (Acute) Current use of anticoagulant therapy (Acute) Mass of left hip region (Acute) Subtherapeutic international normalized ratio (INR) (Acute) Pneumonia (Acute) Weakness (Acute) Ascending paralysis (Acute) Neuropathy (Acute) Ganglion, left hip (Acute) Bilateral knee effusions (Acute) Hypoxia (Acute) Acute on chronic anemia (Acute) Elevated troponin (Acute) Anemia (Acute) COVID-19 (Acute) Pneumonia (Acute) Tricompartment osteoarthritis of knees, bilateral (Acute) Cellulitis (Acute) VIRGEN (acute kidney injury) (Acute) Hypotension (Acute) Acute dehydration (Acute) HTN (hypertension) (Acute) Atrial fibrillation (Acute) Leukopenia (Acute) 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) Past Medical History Medical History (Updated 07/01/25 @ 13:44 by ALVIN Cornejo) Aortic valve disease Eye injury Prosthetic eye globe Pneumonia Osteoarthritis Anemia Neuropathy Guillain-[place] syndrome HTN (hypertension) Leukopenia Atrial fibrillation Family History Family history of problems with anesthesia: No Surgical History Surgical History Hx of enucleation of right eyeball Hx of cataract extraction H/O colonoscopy Hx of aortic valve replacement History of cholecystectomy History of Problems with Anesthesia: No Social History Social History Household Members: Spouse Housing: House Are you a primary hemodialysis patient care specialist to a significant other at home: No Do you presently have visiting nurse or other home services: No Alcohol intake: current Alcohol intake frequency: holidays/special occasions only Alcohol type: wine Comment: counts correct Patient Tobacco Use Status: Never used Tobacco service: No Current occupational status: retired Current occupation: retired Current occupational exposures/hazards: No Meds Allergies Allergy/AdvReac Type Severity Reaction Status Date / Time adhesive (ADHESIVE) Allergy Intermediate RASH, Verified 06/30/25 00:05 BLISTERS atenolol (Atenolol) Allergy Mild RASH Verified 06/30/25 00:05 oxycodone Allergy Mild Gastrointestinal Verified 06/30/25 00:05 Upset sotalol (Sotalol) Allergy Mild RASH Verified 06/30/25 00:05 tamsulosin Allergy Unknown reaction Verified 06/30/25 00:05 unknown tramadol Allergy Unknown reaction Verified 06/30/25 00:05 unknown atorvastatin (From Lipitor) AdvReac Severe SEVERE Verified 06/30/25 00:05 ACHES AND PAINS Active Medications: Current Medications Albuterol Sulfate (Albuterol Sulfate 90 Mcg 8 Gm Inhaler) 2 puff INHALE RQ6H PRN PRN Reason: shortness of breath or wheezing Doxazosin Mesylate (Doxazosin Mesylate 2 Mg Tablet) 4 mg PO BEDTIME [facility]; Protocol Last Admin: 07/01/25 21:05 Dose: Not Given Enoxaparin Sodium (Enoxaparin Sodium 120 Mg/0.8 Ml Syringe) 105 mg 1 mg/kg (105 mg) SUBCUT Q12H [facility] Last Admin: 07/02/25 07:40 Dose: Not Given Finasteride (Finasteride 5 Mg Tablet) 5 mg PO DAILY [facility] Last Admin: 07/02/25 07:40 Dose: Not Given Hydromorphone HCl (Hydromorphone Hcl 0.5 Mg/0.5 Ml Syringe) 0.5 mg IVPUSH Q3H PRN; Protocol PRN Reason: Pain, Severe (Pain Scale 7-10) Last Admin: 07/02/25 04:38 Dose: 0.5 mg Hydromorphone HCl (Hydromorphone Hcl 0.5 Mg/0.5 Ml Syringe) 0.5 mg IVPUSH ONCE PRN; Protocol PRN Reason: Pain, Severe (Pain Scale 7-10) Last Admin: 07/02/25 06:54 Dose: 0.5 mg Acetaminophen (Ofirmev) 1,000 mg in 100 mls @ 400 mls/hr IV Q6H PRN PRN Reason: Pain, Mild (Pain Scale 1-3) Lactated Ringer's (Lr) 1,000 mls @ 100 mls/hr IVCONT .Q10H [facility] Last Admin: 07/02/25 04:16 Dose: 100 mls/hr Non-Formulary Medication (Rosuvastatin) 40 mg PO DAILY [facility] Ondansetron HCl (Ondansetron Hcl 4 Mg/2 Ml Vial) 4 mg IVPUSH QID PRN PRN Reason: Nausea Warfarin Sodium (Warfarin Sodium 5 Mg Tablet) 5 mg PO DAILY@1800 [facility] Last Admin: 07/01/25 17:09 Dose: 5 mg Home Medications ?Medication ?Instructions ?Recorded ?Confirmed ?Last Taken ?Type doxazosin 4 mg tablet 4 mg PO BEDTIME 04/17/21 06/30/25 06/29/25 History spironolactone 25 mg tablet 25 mg PO DAILY 03/24/25 06/30/25 06/29/25 History furosemide 40 mg tablet 40 mg PO DAILY 06/13/25 06/30/25 06/29/25 History lisinopril 20 mg tablet 40 mg PO DAILY 06/13/25 06/30/25 06/29/25 History finasteride 5 mg tablet 5 mg PO DAILY 06/30/25 06/30/25 06/29/25 History warfarin 1 mg tablet 5 mg PO SUTUWETHSA@1800 06/30/25 06/30/25 06/29/25 History warfarin 4 mg tablet 4 mg PO MOFR@1800 06/30/25 06/30/25 06/27/25 History Exam Height,Weight and Vital Signs: Height 6 ft 6 in Weight 109.8 kg Last Vital Signs Temp 98.0 F 07/02/25 07:16 Pulse 98 07/02/25 07:16 Resp 20 07/02/25 07:16 BP 127/63 07/02/25 07:16 Pulse Ox 97 07/02/25 07:16 O2 Del Method Room Air 07/02/25 07:16 O2 Flow Rate 2 06/30/25 14:57 Pertinent Lab Results Pertinent Lab Results: Laboratory Tests 06/30/25 06/30/25 06/30/25 00:19 00:20 00:24 WBC 8.2 RBC 2.67 L D Hgb 8.3 L D Hct 24.4 L D MCV 91.4 MCH 31.1 MCHC 34.0 RDW 25.3 H Plt Count 134 L MPV 11.1 Immature Gran % (Auto) 2.2 H Neut % (Auto) 33.5 L Lymph % (Auto) 31.5 [place] % (Auto) 31.9 H Eos % (Auto) 0.7 Baso % (Auto) 0.2 Lymph # (Auto) 2.6 [place] # (Auto) 2.6 H Eos # (Auto) 0.1 Baso # (Auto) 0.0 Abs Immat Gran (auto) 0.18 H Absolute Neuts (auto) 2.7 Absolute Nucleated RBC 0.080 H Nucleated RBC % (auto) 1.0 H Neutrophils % (Manual) Band Neutrophils % Lymphocytes % (Manual) Monocytes % (Manual) Abs Neuts (Manual) Lymphocytes # (Manual) Monocytes # (Manual) Nucleated RBCs Platelet Estimate Plt Morphology Comment RBC Morphology Hypochromasia Tear Drop Cells [place] Cells Schistocytes Smear Tech's Comments VERIFIED PT 16.4 H INR 1.4 H APTT 27.2 Sodium 138 Potassium 4.1 Chloride 101 Carbon Dioxide 29 Anion Gap 12 BUN 18 H Creatinine 0.86 Estim Creat Clear Calc 75.2 Estimated GFR > 60 POC Glucose Random Glucose 111 Calcium 8.4 D Total Bilirubin 0.9 AST 35 ALT 20 Alkaline Phosphatase 52 Total Protein 6.5 Albumin 4.1 Blood Type A Negative Antibody Screen NEGATIVE Crossmatch See Detail 06/30/25 07/01/25 07/01/25 14:02 06:41 13:37 WBC 5.7 8.9 RBC 2.58 L 2.24 L Hgb 8.1 L 7.1 L 6.8 L* Hct 24.0 L 20.4 L* 20.0 L* MCV 93.0 91.1 MCH 31.4 31.7 MCHC 33.8 34.8 RDW 25.3 H 25.2 H Plt Count 120 L 122 L MPV 10.9 11.3 Immature Gran % (Auto) Cancelled Neut % (Auto) Cancelled Lymph % (Auto) Cancelled [place] % (Auto) Cancelled Eos % (Auto) Cancelled Baso % (Auto) Cancelled Lymph # (Auto) Cancelled [place] # (Auto) Cancelled Eos # (Auto) Cancelled Baso # (Auto) Cancelled Abs Immat Gran (auto) Cancelled Absolute Neuts (auto) Cancelled Absolute Nucleated RBC 0.030 H 0.090 H Nucleated RBC % (auto) 0.5 H 1.0 H Neutrophils % (Manual) 59 Band Neutrophils % 10 H Lymphocytes % (Manual) 17 L Monocytes % (Manual) 14 H Abs Neuts (Manual) 6.1 Lymphocytes # (Manual) 1.5 Monocytes # (Manual) 1.2 Nucleated RBCs 2 H Platelet Estimate SLIGHTLY DECREASED Plt Morphology Comment NORMAL RBC Morphology NOTED Hypochromasia 1+ (5-14) Tear Drop Cells 1+ (0-2) [place] Cells 1+ (0-2) Schistocytes 1+ (0-2) Smear Tech's Comments MANUAL DIFF PT 19.9 H D INR 1.7 H APTT Sodium Potassium Chloride Carbon Dioxide Anion Gap BUN Creatinine Estim Creat Clear Calc Estimated GFR POC Glucose Random Glucose Calcium Total Bilirubin AST ALT Alkaline Phosphatase Total Protein Albumin Blood Type Antibody Screen Crossmatch 07/01/25 07/02/25 18:39 06:56 WBC 9.6 RBC 2.37 L Hgb 7.4 L Hct 21.8 L MCV 92.0 MCH 31.2 MCHC 33.9 RDW 25.0 H Plt Count 133 L MPV 11.2 Immature Gran % (Auto) Neut % (Auto) Lymph % (Auto) [place] % (Auto) Eos % (Auto) Baso % (Auto) Lymph # (Auto) [place] # (Auto) Eos # (Auto) Baso # (Auto) Abs Immat Gran (auto) Absolute Neuts (auto) Absolute Nucleated RBC 0.050 H Nucleated RBC % (auto) 0.5 H Neutrophils % (Manual) Band Neutrophils % Lymphocytes % (Manual) Monocytes % (Manual) Abs Neuts (Manual) Lymphocytes # (Manual) Monocytes # (Manual) Nucleated RBCs Platelet Estimate Plt Morphology Comment RBC Morphology Hypochromasia Tear Drop Cells [place] Cells Schistocytes Smear Tech's Comments PT 18.7 H INR 1.6 H APTT Sodium Potassium Chloride Carbon Dioxide Anion Gap BUN Creatinine Estim Creat Clear Calc Estimated GFR POC Glucose 135 H Random Glucose Calcium Total Bilirubin AST ALT Alkaline Phosphatase Total Protein Albumin Blood Type Antibody Screen Crossmatch Airway Mallampati Class: II TM Dist: >3cm Neck ROM: Full Loose/Missing/Broken Teeth: No Heart: RRR Lungs: CTA Assessment and Plan Assessment Anesthesia Assessment: Anesthesia Plan Discussed and Chart Reviewed Final Anesthetic Review Family History of Problems with Anesthesia: No History of Problems with Anesthesia: No NPO: Yes ASA Class: III and Emergency Final Preanesthetic Review: No Changes in Pt Med Stat, Meds/Allgs Chart Reviewed, Consent Obtained/Reviewed and Anes Risks/Benef Reviewed Patient Risk: Intermediate Procedure Risk: Low Anesthetic Plan Anesthetic Plan: GA Disposition: Standard PACU
--- NOTE | 2025-07-02 10:05 | ECG_ITS ---
Test Reason : cp Blood Pressure : */* mmHG Vent. Rate : 102 BPM Atrial Rate : 102 BPM P-R Int : 168 ms QRS Dur : 112 ms QT Int : 370 ms P-R-T Axes : 34 54 55 degrees QTcB Int : 482 ms Sinus tachycardia Otherwise normal ECG When compared with ECG of 01-Jul-2025 18:43, Sinus tachycardia has replaced Atrial fibrillation Left bundle branch block is no longer Present Referred By: Paddy Kendall Electronically Signed By: MARITO BRANHAM MD
--- NOTE | 2025-07-02 13:40 | P.OP_ITS ---
Operative Note Operative Note Date of Service: 07/02/25 Narrative: Preoperative diagnosis: Hematoma left leg Postoperative diagnosis:same Procedure: Evacuation of hematoma left leg Surgeon: Paddy Kendall MD Test And Turn Up Technician: none Anesthesia: General LMA Indications for procedure: 89 year old male with previous chronic hematoma left leg excised earlier this week, now with a recurrent hematoma with associated pain, increased drainage from FADI. Patient on anticoagulation due to mechanical heart valve. Operative findings: large collection of clot below left leg incision. Mild oozing noted from multiple areas with no arterial bleeding noted. Specimen: none Estimated blood loss:approximately 300 mls cloted blood Complications: none Drain: FADI #10 to bulb suction Procedure details: Patient was brought to the OR and placed in a supine position. After administering general anesthesia, the left leg was prepped with betadine and draped in a sterile fashion. A surgical timeout was called and the consent confirmed. Patient received antibiotics and venodyne boots were in place. The previous incision was reopened and a large clot collection removed. Wounds were irrigated with saline solution and the wounds examined for any active bleeding sites. Hemoclips were used to ligate small venous bleeding site and free ties of 3-0 polysorb were used to re-ligate larger vessels. Tissel and snow was also used to to assure small areas of mild bleeding. After watching the wound for around 10 minutes, no active bleeding could be identified. A #10 FADI drain was placed at the site of the previous drain and secured to the skin with a 3-0 nylon suture. A 3-0 nylon suture was used to place a quilting suture to close the open space between skin and muscle. This was done in both the superior and inferior flaps. Prior to suturing the quilting suture, the subcutaneous tissue was reapproximated with interrupted 3-0 polysorb suture. The quilting sutures were then tied down over a pledget of Xeroform. The skin was then closed using interrupted 3-0 Nylon sutures. Sterile dressing including fluffed gauze and abd pad was then applied with pressure applied using elastoplast tape. The patient tolerated the procedure well. Sponge, instrument and needle counts were reported as correct. He was transferred to the PACU in stable condition.
--- NOTE | 2025-07-02 15:35 | HO.PM.IMPN ---
Subjective Subjective Date of Service: 07/02/25 Interval History: Pt noted to have recurrent bleeding and FADI drain this morning Was brought to the OR for cauterization Pt seen and evaluated in his room postop where he is resting comfortably in bed Reports he feels ?comfortable? and much better than prior No significant pressure or pain on left hip or abdomen Right upper extremity feels better; still some stiffness, but no significant pain/pressure or numbness/tingling No acute vision changes Denies lightheadedness or dizziness Reports last bowel movement on Friday Review of Systems Negative except for that which is stated in the HPI Physical Exam Exam: Exam: General: AOx3, no acute distress Resp: CTA bilaterally CVS: S1, S2, RRR, +mechanical click GI: +BS, NT, no distention; left hip with FADI drain with scant amount of blood Skin: Warm, dry Neuro: Cranial nerves II-XII grossly intact bilaterally. Motor grossly intact bilaterally Extremities: No edema Psych: Appropriate affect Vital Signs: Vital Signs: Last Vital Signs Temp 98.3 F 07/02/25 10:38 Pulse 83 07/02/25 10:38 Resp 16 07/02/25 10:38 BP 131/60 07/02/25 10:38 Pulse Ox 91 L 07/02/25 10:38 O2 Del Method Room Air 07/02/25 10:38 O2 Flow Rate 2 06/30/25 14:57 BMI result Body Mass Index 28.0 Objective Data Active Medications Albuterol Sulfate (Albuterol Sulfate 90 Mcg 8 Gm Inhaler) 2 puff INHALE RQ6H PRN PRN Reason: shortness of breath or wheezing Doxazosin Mesylate (Doxazosin Mesylate 2 Mg Tablet) 4 mg PO BEDTIME [facility]; Protocol Last Admin: 07/01/25 21:05 Dose: Not Given Documented By: ESAU Non-Admin Reason: med held Enoxaparin Sodium (Enoxaparin Sodium 120 Mg/0.8 Ml Syringe) 105 mg 1 mg/kg (105 mg) SUBCUT Q12H [facility] Last Admin: 07/02/25 07:40 Dose: Not Given Documented By: TIANA Non-Admin Reason: Off Unit: Surgery Finasteride (Finasteride 5 Mg Tablet) 5 mg PO DAILY [facility] Last Admin: 07/02/25 07:40 Dose: Not Given Documented By: TIANA Non-Admin Reason: Off Unit: Surgery Hydromorphone HCl (Hydromorphone Hcl 0.5 Mg/0.5 Ml Syringe) 0.5 mg IVPUSH Q3H PRN; Protocol PRN Reason: Pain, Severe (Pain Scale 7-10) Last Admin: 07/02/25 10:00 Dose: 0.5 mg Documented By: FARIDEH Hydromorphone HCl (Hydromorphone Hcl 0.5 Mg/0.5 Ml Syringe) 0.5 mg IVPUSH ONCE PRN; Protocol PRN Reason: Pain, Severe (Pain Scale 7-10) Last Admin: 07/02/25 06:54 Dose: 0.5 mg Documented By: ESAU Acetaminophen (Ofirmev) 1,000 mg in 100 mls @ 400 mls/hr IV Q6H PRN PRN Reason: Pain, Mild (Pain Scale 1-3) Lactated Ringer's (Lr) 1,000 mls @ 100 mls/hr IVCONT .Q10H [facility] Last Admin: 07/02/25 10:47 Dose: 100 mls/hr Documented By: TIANA Naloxone HCl (Naloxone Hcl 0.4 Mg/Ml Vial) 0.04 mg IVPUSH Q5M PRN PRN Reason: Excessive sedation or RR < 8 Non-Formulary Medication (Rosuvastatin) 40 mg PO DAILY [facility] Ondansetron HCl (Ondansetron Hcl 4 Mg/2 Ml Vial) 4 mg IVPUSH QID PRN PRN Reason: Nausea Warfarin Sodium (Warfarin Sodium 5 Mg Tablet) 5 mg PO DAILY@1800 [facility] Last Admin: 07/01/25 17:09 Dose: 5 mg Documented By: RENETTA Labs 07/02/25 06:56 06/30/25 00:20 Labs: Laboratory Results - last 24 hr 06/30/25 07/01/25 07/02/25 00:24 18:39 06:56 MCV 92.0 MCH 31.2 MCHC 33.9 RDW 25.0 H Plt Count 133 L MPV 11.2 Absolute Nucleated RBC 0.050 H Nucleated RBC % (auto) 0.5 H PT 18.7 H INR 1.6 H POC Glucose 135 H Blood Type A Negative Antibody Screen NEGATIVE Crossmatch See Detail Assessment and Plan (1) Hypotension: Status: Acute (2) Postoperative anemia due to acute blood loss: Status: Acute Plan This is a 89-year-old male with a history of mechanical aortic valve, atrial fibrillation on anticoagulation with Coumadin, hypertension, 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 Acute blood loss anemia due to hematoma from left hip surgical site Status post hematoma evacuation 06/30 Pt with unknown h/o transfusion reaction; requires premedication with Tylenol and Bendryl prior to transfusions Transfused one unit PRBCs on 07/01 due to hypotension & acute H&H drop Bleeding at site recurred on 07/02, and taken for repeat cauterization in the OR BP currently normotensive and pt asymtomatic Follow H&H, transfuse with premeds as necessary Pain management as per general surgery Mechanical aortic valve/chronic atrial fibrillation INR subtherapeutic at 1.6 Will hold anticoagulation for today due to recurrent bleed Monitor H&H, INR, and for recurrent bleeding Plan is to resume Coumadin with therapeutic Lovenox bridge on the morning of 07/03/2025 Monitor INR daily Right arm pain/heaviness, numbness and tingling Sudden onset on the evening of 07/01/2025 Neuro exam reassuring, no focal deficits noted CTA of head negative for acute abnormality Currently arm feels much better though still some ?stiffness? Likely musculoskeletal due to acute intervention during rapid response for hypotension Thrombocytopenia Appears chronic Trending down likely due to component of dilution from IVF Monitor CBC BPH continue doxazosin, finasteride Hypertension Blood pressure trending down hold baseline lisinopril, lasix and aldactone Monitor blood pressure closely HLD Continue statin We will continue to follow along with you. Quality Stroke Does the patient have a stroke diagnosis?: No VTE Prior VTE?: No VTE Risk Level:: Surgical - moderate VTE Device Contraindication: N/A - Device Ordered VTE Drug Contraindication: N/A - Med Ordered
[2025-07-03] VITALS (12 sets, daily range): BP systolic 107–154; BP diastolic 56–68; PULSE 77–106; RESP 16–20; TEMP 36.2–37.2; O2SAT 92–97
[2025-07-03] MEDS: Lactated Ringers 1,000 ML 100 ML IVCONT ×2 (05:05→14:47)
[2025-07-03 07:01] LABS: INTERNATIONAL NORM RATIO 1.7 (0.9-1.1); Prothrombin Time 19.4 SEC (10.9-12.4)
[2025-07-03 07:08] LABS: Mean Corpuscular HGB Conc 34.5 g/dl (31.0-36.0); Mean Corpuscular Hemoglobin 31.9 pg (27.0-33.0); Mean Corpuscular Volume 92.6 fL (80.0-98.0); NRBC Abs Auto 0.020 X10*3/uL (0.0-0.012); NRBC Pct Auto 0.2 /100WBC (0.0-0.2); Platelet Count 131 X10*3/uL (160-400); Red Blood Count 2.16 X10*6/uL (4.60-5.80); White Blood Count 9.4 X10*3/uL (4.8-10.8)
[2025-07-03 07:44] LABS: Hemoglobin 6.9 g/dl (14.0-18.0)
[2025-07-03 07:45] LABS: Hematocrit 20.0 % (42.0-52.0)
--- NOTE | 2025-07-03 08:07 | P.PNGS_ITS ---
Subjective Subjective Date of Service: 07/03/25 Interval history: POD #1 s/p re-evacuation of left hip hematoma. Patient feels much improved this morning with minimal pain. Output from FADI thin sanguinous fluid. Physical Exam 2 Vital Signs: Vital Signs: Last Vital Signs Temp 98.5 F 07/03/25 03:06 Pulse 95 07/03/25 03:06 Resp 16 07/03/25 03:06 BP 134/66 07/03/25 03:06 Pulse Ox 96 07/03/25 03:06 O2 Del Method Room Air 07/03/25 03:06 O2 Flow Rate 96 07/02/25 16:00 BMI result Body Mass Index 28.0 Const: General: no acute distress Nutritional Appearance: well nourished Orientation/consciousness: patient oriented x3 Limitations: ambulation with walker Resp: Effort & Inspection: normal respiratory effort Neuro: General: patient oriented x3 Extrem: Other: pressure dressing remains inplace with no skin reaction. FADI intact as well. Objective Data Active Medications Albuterol Sulfate (Albuterol Sulfate 90 Mcg 8 Gm Inhaler) 2 puff INHALE RQ6H PRN PRN Reason: shortness of breath or wheezing Doxazosin Mesylate (Doxazosin Mesylate 2 Mg Tablet) 4 mg PO BEDTIME [facility]; Protocol Last Admin: 07/02/25 19:56 Dose: 4 mg Documented By: BARBI Enoxaparin Sodium (Enoxaparin Sodium 120 Mg/0.8 Ml Syringe) 105 mg 1 mg/kg (105 mg) SUBCUT Q12H [facility] On Hold: 07/02/25 16:08 Last Admin: 07/02/25 16:07 Dose: Not Given Documented By: TIANA Non-Admin Reason: Physician Held Med Finasteride (Finasteride 5 Mg Tablet) 5 mg PO DAILY [facility] Last Admin: 07/02/25 07:40 Dose: Not Given Documented By: TIANA Non-Admin Reason: Off Unit: Surgery Hydromorphone HCl (Hydromorphone Hcl 0.5 Mg/0.5 Ml Syringe) 0.5 mg IVPUSH Q3H PRN; Protocol PRN Reason: Pain, Severe (Pain Scale 7-10) Last Admin: 07/03/25 05:03 Dose: 0.5 mg Documented By: BARBI Acetaminophen (Ofirmev) 1,000 mg in 100 mls @ 400 mls/hr IV Q6H PRN PRN Reason: Pain, Mild (Pain Scale 1-3) Lactated Ringer's (Lr) 1,000 mls @ 100 mls/hr IVCONT .Q10H [facility] Last Admin: 07/03/25 05:05 Dose: 100 mls/hr Documented By: BARBI Naloxone HCl (Naloxone Hcl 0.4 Mg/Ml Vial) 0.04 mg IVPUSH Q5M PRN PRN Reason: Excessive sedation or RR < 8 Non-Formulary Medication (Rosuvastatin) 40 mg PO DAILY [facility] Ondansetron HCl (Ondansetron Hcl 4 Mg/2 Ml Vial) 4 mg IVPUSH QID PRN PRN Reason: Nausea Warfarin Sodium (Warfarin Sodium 5 Mg Tablet) 5 mg PO DAILY@1800 [facility] On Hold: 07/02/25 16:08 Last Admin: 07/02/25 16:07 Dose: Not Given Documented By: TAINA Non-Admin Reason: Physician Held Med Labs 07/03/25 06:37 06/30/25 00:20 Labs: Laboratory Results - last 24 hr 07/03/25 06:37 MCV 92.6 MCH 31.9 MCHC 34.5 RDW 24.6 H Plt Count 131 L MPV 10.9 Absolute Nucleated RBC 0.020 H Nucleated RBC % (auto) 0.2 PT 19.4 H INR 1.7 H Procedures Date of Service Date of Service: 07/03/25 Progress Note: A&P Assessment and plan (1) Hematoma: Status: Acute Plan POD #1, s/p re-evacuation of left hip hematoma. He tolerated the procedure well and remains stable. H/H has decreased as expected and he will receive a transfusion today. Will keep current pressure dressing on for another 2 days. Plan to restart anticoagulation today. Time Spent With Patient Time: Total time managing care of this patient today ____ minutes. Quality Stroke Does the patient have a stroke diagnosis?: No VTE Prior VTE?: No VTE Risk Level:: Surgical - moderate VTE Device Contraindication: N/A - Device Ordered VTE Drug Contraindication: N/A - Med Ordered
--- NOTE | 2025-07-03 08:25 | HO.POSTANES ---
Post Anesthesia Evaluation Post Anesthesia Evaluation Date of Service: 07/03/25 Vital Signs: Vital Signs Temp Pulse Resp BP Pulse Ox O2 Del Method 07/03/25 08:00 98.2 F 92 16 135/63 95 Room Air 07/03/25 03:06 98.5 F 95 16 134/66 96 Room Air 07/02/25 23:03 100.1 F 86 18 127/60 96 Room Air Anesthesia: General LMA Mental Status: Awake Pain Control: Satisfactory Nausea/Vomiting: None Hydration: Adequate Anesthesia-Related Issues: No Anes. Related Issues
--- NOTE | 2025-07-03 08:36 | P.PNIM_ITS ---
Subjective Subjective Date of Service: 07/03/25 Interval History: No acute events overnight No active bleeding; minimal output in FADI drain Pain currently well-controlled Feeling much better Right arm discomfort resolved No lightheadedness or dizziness Review of Systems Review of Systems: Yes all other systems are reviewed and are negative Physical Exam 2 Exam: Exam: General: AOx3, no acute distress Resp: CTA bilaterally CVS: S1, S2, RRR, +mechanical click GI: +BS, NT, no distention; left hip with FADI drain with minimal output of blood Skin: Warm, dry Neuro: Cranial nerves II-XII grossly intact bilaterally. Motor grossly intact bilaterally. No focal deficits noted Extremities: No edema Psych: Appropriate affect Vital Signs: Vital Signs: Last Vital Signs Temp 98.2 F 07/03/25 08:00 Pulse 92 07/03/25 08:00 Resp 16 07/03/25 08:00 BP 135/63 07/03/25 08:00 Pulse Ox 95 07/03/25 08:00 O2 Del Method Room Air 07/03/25 08:00 O2 Flow Rate 96 07/02/25 16:00 BMI result Body Mass Index 28.0 Objective Data Active Medications Acetaminophen (Acetaminophen 325 Mg Tablet) 650 mg PO ONCE ONE Stop: 07/03/25 08:34 Albuterol Sulfate (Albuterol Sulfate 90 Mcg 8 Gm Inhaler) 2 puff INHALE RQ6H PRN PRN Reason: shortness of breath or wheezing Diphenhydramine HCl (Diphenhydramine Hcl 50 Mg/Ml Vial) 25 mg IVPUSH ONCE ONE Stop: 07/03/25 08:34 Doxazosin Mesylate (Doxazosin Mesylate 2 Mg Tablet) 4 mg PO BEDTIME [facility]; Protocol Last Admin: 07/02/25 19:56 Dose: 4 mg Documented By: BARBI Enoxaparin Sodium (Enoxaparin Sodium 120 Mg/0.8 Ml Syringe) 105 mg 1 mg/kg (105 mg) SUBCUT Q12H [facility] On Hold: 07/02/25 16:08 Last Admin: 07/02/25 16:07 Dose: Not Given Documented By: TIANA Non-Admin Reason: Physician Held Med Finasteride (Finasteride 5 Mg Tablet) 5 mg PO DAILY [facility] Last Admin: 07/02/25 07:40 Dose: Not Given Documented By: TIANA Non-Admin Reason: Off Unit: Surgery Hydromorphone HCl (Hydromorphone Hcl 0.5 Mg/0.5 Ml Syringe) 0.5 mg IVPUSH Q3H PRN; Protocol PRN Reason: Pain, Severe (Pain Scale 7-10) Last Admin: 07/03/25 05:03 Dose: 0.5 mg Documented By: BARBI Acetaminophen (Ofirmev) 1,000 mg in 100 mls @ 400 mls/hr IV Q6H PRN PRN Reason: Pain, Mild (Pain Scale 1-3) Lactated Ringer's (Lr) 1,000 mls @ 100 mls/hr IVCONT .Q10H [facility] Last Admin: 07/03/25 05:05 Dose: 100 mls/hr Documented By: BARBI Naloxone HCl (Naloxone Hcl 0.4 Mg/Ml Vial) 0.04 mg IVPUSH Q5M PRN PRN Reason: Excessive sedation or RR < 8 Non-Formulary Medication (Rosuvastatin) 40 mg PO DAILY [facility] Ondansetron HCl (Ondansetron Hcl 4 Mg/2 Ml Vial) 4 mg IVPUSH QID PRN PRN Reason: Nausea Warfarin Sodium (Warfarin Sodium 5 Mg Tablet) 5 mg PO DAILY@1800 [facility] On Hold: 07/02/25 16:08 Last Admin: 07/02/25 16:07 Dose: Not Given Documented By: TIANA Non-Admin Reason: Physician Held Med Labs 07/03/25 06:37 06/30/25 00:20 Labs: Laboratory Results - last 24 hr 07/03/25 06:37 MCV 92.6 MCH 31.9 MCHC 34.5 RDW 24.6 H Plt Count 131 L MPV 10.9 Absolute Nucleated RBC 0.020 H Nucleated RBC % (auto) 0.2 PT 19.4 H INR 1.7 H Assessment and Plan (1) Postoperative anemia due to acute blood loss: Status: Acute Plan This is a 89-year-old male with a history of mechanical aortic valve, atrial fibrillation on anticoagulation with Coumadin, hypertension, 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 Acute blood loss anemia due to hematoma from left hip surgical site Status post hematoma evacuation 06/30 and repeat cauterization on 07/02 due to recurrent bleed Pt with unknown h/o transfusion reaction; requires premedication with Tylenol and Bendryl prior to transfusions Transfused one unit PRBCs on 07/01 due to hypotension & acute H&H drop H&H with drop today to 6.9/20.0; will transfuse additional unit BP currently normotensive and pt asymtomatic Follow H&H, transfuse with premeds as necessary Pain management as per general surgery Mechanical aortic valve/chronic atrial fibrillation INR subtherapeutic at 1.7; anticoagulation has been on hold due to recurrent bleed Will resume Coumadin with therapeutic Lovenox bridge today Monitor H&H, INR, and for recurrent bleeding Right arm pain/heaviness, numbness and tingling; resolved Sudden onset on the evening of 07/01/2025 Neuro exam reassuring, no focal deficits noted CT of head negative for acute abnormality Currently back to baseline Likely musculoskeletal due to acute intervention during rapid response for hypotension Thrombocytopenia Appears chronic Trending down likely due to component of dilution from IVF Monitor CBC BPH continue doxazosin, finasteride Hypertension Blood pressure trending down Continue to hold baseline lisinopril, lasix and aldactone Monitor blood pressure closely and resume antihypertensives as necessary HLD Continue statin We will continue to follow along with you. Quality Stroke Does the patient have a stroke diagnosis?: No VTE Prior VTE?: No VTE Risk Level:: Surgical - moderate VTE Device Contraindication: N/A - Device Ordered VTE Drug Contraindication: N/A - Med Ordered
--- NOTE | 2025-07-03 23:46 | P.PNGS_ITS ---
Subjective Subjective Date of Service: 07/03/25 Interval history: Patient developed rebleeding with increased output from FADI drain. He felt a pop when getting out of the chair and going into the bed. Feels 1 of the sutures may have popped Physical Exam 2 Vital Signs: Vital Signs: Last Vital Signs Temp 98.8 F 07/03/25 22:56 Pulse 106 H 07/03/25 22:56 Resp 19 07/03/25 22:56 BP 154/68 H 07/03/25 22:56 Pulse Ox 92 07/03/25 19:53 O2 Del Method Room Air 07/03/25 19:53 O2 Flow Rate 96 07/02/25 16:00 BMI result Body Mass Index 28.0 Const: General: alert and awake Nutritional Appearance: well nourished O rientation/consciousness: patient oriented x3 Resp: Effort & Inspection: normal respiratory effort Neuro: General: patient oriented x3 Extrem: Other: Left leg dressing intact, FADI with serosanguineous output Objective Data Active Medications Albuterol Sulfate (Albuterol Sulfate 90 Mcg 8 Gm Inhaler) 2 puff INHALE RQ6H PRN PRN Reason: shortness of breath or wheezing Doxazosin Mesylate (Doxazosin Mesylate 2 Mg Tablet) 4 mg PO BEDTIME [facility]; Protocol Last Admin: 07/03/25 19:53 Dose: 4 mg Documented By: JUDY Enoxaparin Sodium (Enoxaparin Sodium 120 Mg/0.8 Ml Syringe) 105 mg 1 mg/kg (105 mg) SUBCUT Q12H [facility] On Hold: 07/03/25 17:56 Last Admin: 07/03/25 10:43 Dose: 105 mg Documented By: TIANA Finasteride (Finasteride 5 Mg Tablet) 5 mg PO DAILY [facility] Last Admin: 07/03/25 10:43 Dose: 5 mg Documented By: TIANA Hydromorphone HCl (Hydromorphone Hcl 0.5 Mg/0.5 Ml Syringe) 0.5 mg IVPUSH Q3H PRN; Protocol PRN Reason: Pain, Severe (Pain Scale 7-10) Last Admin: 07/03/25 21:54 Dose: 0.5 mg Documented By: JUDY Acetaminophen (Ofirmev) 1,000 mg in 100 mls @ 400 mls/hr IV Q6H PRN PRN Reason: Pain, Mild (Pain Scale 1-3) Last Infusion: 07/03/25 22:55 Dose: Infused Documented By: JUDY Lactated Ringer's (Lr) 1,000 mls @ 100 mls/hr IVCONT .Q10H [facility] Last Admin: 07/03/25 14:50 Dose: Not Given Documented By: TIANA Non-Admin Reason: IV Running Naloxone HCl (Naloxone Hcl 0.4 Mg/Ml Vial) 0.04 mg IVPUSH Q5M PRN PRN Reason: Excessive sedation or RR < 8 Non-Formulary Medication (Rosuvastatin) 40 mg PO DAILY [facility] Ondansetron HCl (Ondansetron Hcl 4 Mg/2 Ml Vial) 4 mg IVPUSH QID PRN PRN Reason: Nausea Warfarin Sodium (Warfarin Sodium 5 Mg Tablet) 5 mg PO DAILY@1800 [facility] On Hold: 07/03/25 17:56 Last Admin: 07/02/25 16:07 Dose: Not Given Documented By: TIANA Non-Admin Reason: Physician Held Med Labs 07/03/25 06:37 06/30/25 00:20 Labs: Laboratory Results - last 24 hr 06/30/25 07/03/25 07/03/25 00:24 06:37 08:41 MCV 92.6 MCH 31.9 MCHC 34.5 RDW 24.6 H Plt Count 131 L MPV 10.9 Absolute Nucleated RBC 0.020 H Nucleated RBC % (auto) 0.2 PT 19.4 H INR 1.7 H Blood Type A Negative Antibody Screen NEGATIVE Crossmatch See Detail See Detail Procedures Date of Service Date of Service: 07/03/25 Progress Note: A&P Assessment and plan (1) Hematoma: Status: Acute Plan Rebleed of left leg hematoma after start of anticoagulation. We will need re- exploration with control of bleeding source. I reviewed the procedure, risks and alternatives and he consents to the evacuation of left leg hematoma. Time Spent With Patient Time: Total time managing care of this patient today ____ minutes. Quality Stroke Does the patient have a stroke diagnosis?: No VTE Prior VTE?: No VTE Risk Level:: Surgical - moderate VTE Device Contraindication: N/A - Device Ordered VTE Drug Contraindication: N/A - Med Ordered
[2025-07-04] VITALS (12 sets, daily range): BP systolic 113–172; BP diastolic 62–81; PULSE 86–109; RESP 14–19; TEMP 36.2–37.6; O2SAT 95–100
--- NOTE | 2025-07-04 00:24 | HO.ANESPROP2 ---
HPI - Anesthesia Eval Consult details Narrative: Recurrent left thigh bleeding PMFSH Active Problems Active Problems: All Active Problems Aortic valve disease (Acute) Hematoma (Acute) Postoperative anemia due to acute blood loss (Acute) Anemia (Acute) Current use of anticoagulant therapy (Acute) Mass of left hip region (Acute) Subtherapeutic international normalized ratio (INR) (Acute) Pneumonia (Acute) Weakness (Acute) Ascending paralysis (Acute) Neuropathy (Acute) Ganglion, left hip (Acute) Bilateral knee effusions (Acute) Hypoxia (Acute) Acute on chronic anemia (Acute) Elevated troponin (Acute) Anemia (Acute) COVID-19 (Acute) Pneumonia (Acute) Tricompartment osteoarthritis of knees, bilateral (Acute) Cellulitis (Acute) VIRGEN (acute kidney injury) (Acute) Hypotension (Acute) Acute dehydration (Acute) HTN (hypertension) (Acute) Atrial fibrillation (Acute) Leukopenia (Acute) 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) Past Medical History Medical History (Updated 07/01/25 @ 13:44 by ALVIN Cornejo) Aortic valve disease Eye injury Prosthetic eye globe Pneumonia Osteoarthritis Anemia Neuropathy Guillain-[place] syndrome HTN (hypertension) Leukopenia Atrial fibrillation Family History Family history of problems with anesthesia: No Surgical History Surgical History Hx of enucleation of right eyeball Hx of cataract extraction H/O colonoscopy Hx of aortic valve replacement History of cholecystectomy History of Problems with Anesthesia: No Social History Social History Household Members: Spouse Housing: House Are you a primary patient care provider to a significant other at home: No Do you presently have visiting nurse or other home services: No Alcohol intake: current Alcohol intake frequency: holidays/special occasions only Alcohol type: wine Comment: counts correct Patient Tobacco Use Status: Never used Tobacco service: No Current occupational status: retired Current occupation: retired Current occupational exposures/hazards: No Meds Allergies Allergy/AdvReac Type Severity Reaction Status Date / Time adhesive (ADHESIVE) Allergy Intermediate RASH, Verified 06/30/25 00:05 BLISTERS atenolol (Atenolol) Allergy Mild RASH Verified 06/30/25 00:05 oxycodone Allergy Mild Gastrointestinal Verified 06/30/25 00:05 Upset sotalol (Sotalol) Allergy Mild RASH Verified 06/30/25 00:05 tamsulosin Allergy Unknown reaction Verified 06/30/25 00:05 unknown tramadol Allergy Unknown reaction Verified 06/30/25 00:05 unknown atorvastatin (From Lipitor) AdvReac Severe SEVERE Verified 06/30/25 00:05 ACHES AND PAINS Active Medications: Current Medications Albuterol Sulfate (Albuterol Sulfate 90 Mcg 8 Gm Inhaler) 2 puff INHALE RQ6H PRN PRN Reason: shortness of breath or wheezing Doxazosin Mesylate (Doxazosin Mesylate 2 Mg Tablet) 4 mg PO BEDTIME [place]; Protocol Last Admin: 07/03/25 19:53 Dose: 4 mg Enoxaparin Sodium (Enoxaparin Sodium 120 Mg/0.8 Ml Syringe) 105 mg 1 mg/kg (105 mg) SUBCUT Q12H [place] On Hold: 07/03/25 17:56 Last Admin: 07/03/25 10:43 Dose: 105 mg Finasteride (Finasteride 5 Mg Tablet) 5 mg PO DAILY [facility] Last Admin: 07/03/25 10:43 Dose: 5 mg Hydromorphone HCl (Hydromorphone Hcl 0.5 Mg/0.5 Ml Syringe) 0.5 mg IVPUSH Q3H PRN; Protocol PRN Reason: Pain, Severe (Pain Scale 7-10) Last Admin: 07/03/25 21:54 Dose: 0.5 mg Acetaminophen (Ofirmev) 1,000 mg in 100 mls @ 400 mls/hr IV Q6H PRN PRN Reason: Pain, Mild (Pain Scale 1-3) Last Infusion: 07/03/25 22:55 Dose: Infused Lactated Ringer's (Lr) 1,000 mls @ 100 mls/hr IVCONT .Q10H [facility] Last Infusion: 07/03/25 23:52 Dose: 0 mls/hr Naloxone HCl (Naloxone Hcl 0.4 Mg/Ml Vial) 0.04 mg IVPUSH Q5M PRN PRN Reason: Excessive sedation or RR < 8 Non-Formulary Medication (Rosuvastatin) 40 mg PO DAILY [facility] Ondansetron HCl (Ondansetron Hcl 4 Mg/2 Ml Vial) 4 mg IVPUSH QID PRN PRN Reason: Nausea Warfarin Sodium (Warfarin Sodium 5 Mg Tablet) 5 mg PO DAILY@1800 [facility] On Hold: 07/03/25 17:56 Last Admin: 07/02/25 16:07 Dose: Not Given Home Medications ?Medication ?Instructions ?Recorded ?Confirmed ?Last Taken ?Type doxazosin 4 mg tablet 4 mg PO BEDTIME 04/17/21 06/30/25 06/29/25 History spironolactone 25 mg tablet 25 mg PO DAILY 03/24/25 06/30/25 06/29/25 History furosemide 40 mg tablet 40 mg PO DAILY 06/13/25 06/30/25 06/29/25 History lisinopril 20 mg tablet 40 mg PO DAILY 06/13/25 06/30/25 06/29/25 History finasteride 5 mg tablet 5 mg PO DAILY 06/30/25 06/30/25 06/29/25 History warfarin 1 mg tablet 5 mg PO SUTUWETHSA@1800 06/30/25 06/30/25 06/29/25 History warfarin 4 mg tablet 4 mg PO MOFR@1800 06/30/25 06/30/25 06/27/25 History Exam Height,Weight and Vital Signs: Height 6 ft 6 in Weight 109.8 kg Last Vital Signs Temp 98.8 F 07/03/25 22:56 Pulse 106 H 07/03/25 22:56 Resp 19 07/03/25 22:56 BP 154/68 H 07/03/25 22:56 Pulse Ox 92 07/03/25 19:53 O2 Del Method Room Air 07/03/25 19:53 O2 Flow Rate 96 07/02/25 16:00 Pertinent Lab Results Pertinent Lab Results: Laboratory Tests 06/30/25 06/30/25 06/30/25 00:19 00:20 00:24 WBC 8.2 RBC 2.67 L D Hgb 8.3 L D Hct 24.4 L D MCV 91.4 MCH 31.1 MCHC 34.0 RDW 25.3 H Plt Count 134 L MPV 11.1 Immature Gran % (Auto) 2.2 H Neut % (Auto) 33.5 L Lymph % (Auto) 31.5 [place] % (Auto) 31.9 H Eos % (Auto) 0.7 Baso % (Auto) 0.2 Lymph # (Auto) 2.6 [place] # (Auto) 2.6 H Eos # (Auto) 0.1 Baso # (Auto) 0.0 Abs Immat Gran (auto) 0.18 H Absolute Neuts (auto) 2.7 Absolute Nucleated RBC 0.080 H Nucleated RBC % (auto) 1.0 H Neutrophils % (Manual) Band Neutrophils % Lymphocytes % (Manual) Monocytes % (Manual) Abs Neuts (Manual) Lymphocytes # (Manual) Monocytes # (Manual) Nucleated RBCs Platelet Estimate Plt Morphology Comment RBC Morphology Hypochromasia Tear Drop Cells [place] Cells Schistocytes Smear Tech's Comments VERIFIED PT 16.4 H INR 1.4 H APTT 27.2 Sodium 138 Potassium 4.1 Chloride 101 Carbon Dioxide 29 Anion Gap 12 BUN 18 H Creatinine 0.86 Estim Creat Clear Calc 75.2 Estimated GFR > 60 POC Glucose Random Glucose 111 Calcium 8.4 D Total Bilirubin 0.9 AST 35 ALT 20 Alkaline Phosphatase 52 Total Protein 6.5 Albumin 4.1 Blood Type A Negative Antibody Screen NEGATIVE Crossmatch See Detail 06/30/25 07/01/25 07/01/25 14:02 06:41 13:37 WBC 5.7 8.9 RBC 2.58 L 2.24 L Hgb 8.1 L 7.1 L 6.8 L* Hct 24.0 L 20.4 L* 20.0 L* MCV 93.0 91.1 MCH 31.4 31.7 MCHC 33.8 34.8 RDW 25.3 H 25.2 H Plt Count 120 L 122 L MPV 10.9 11.3 Immature Gran % (Auto) Cancelled Neut % (Auto) Cancelled Lymph % (Auto) Cancelled [place] % (Auto) Cancelled Eos % (Auto) Cancelled Baso % (Auto) Cancelled Lymph # (Auto) Cancelled [place] # (Auto) Cancelled Eos # (Auto) Cancelled Baso # (Auto) Cancelled Abs Immat Gran (auto) Cancelled Absolute Neuts (auto) Cancelled Absolute Nucleated RBC 0.030 H 0.090 H Nucleated RBC % (auto) 0.5 H 1.0 H Neutrophils % (Manual) 59 Band Neutrophils % 10 H Lymphocytes % (Manual) 17 L Monocytes % (Manual) 14 H Abs Neuts (Manual) 6.1 Lymphocytes # (Manual) 1.5 Monocytes # (Manual) 1.2 Nucleated RBCs 2 H Platelet Estimate SLIGHTLY DECREASED Plt Morphology Comment NORMAL RBC Morphology NOTED Hypochromasia 1+ (5-14) Tear Drop Cells 1+ (0-2) Christie Cells 1+ (0-2) Schistocytes 1+ (0-2) Smear Tech's Comments MANUAL DIFF PT 19.9 H D INR 1.7 H APTT Sodium Potassium Chloride Carbon Dioxide Anion Gap BUN Creatinine Estim Creat Clear Calc Estimated GFR POC Glucose Random Glucose Calcium Total Bilirubin AST ALT Alkaline Phosphatase Total Protein Albumin Blood Type Antibody Screen Crossmatch 07/01/25 07/02/25 07/03/25 18:39 06:56 06:37 WBC 9.6 9.4 RBC 2.37 L 2.16 L Hgb 7.4 L 6.9 L* Hct 21.8 L 20.0 L* MCV 92.0 92.6 MCH 31.2 31.9 MCHC 33.9 34.5 RDW 25.0 H 24.6 H Plt Count 133 L 131 L MPV 11.2 10.9 Immature Gran % (Auto) Neut % (Auto) Lymph % (Auto) [place] % (Auto) Eos % (Auto) Baso % (Auto) Lymph # (Auto) [place] # (Auto) Eos # (Auto) Baso # (Auto) Abs Immat Gran (auto) Absolute Neuts (auto) Absolute Nucleated RBC 0.050 H 0.020 H Nucleated RBC % (auto) 0.5 H 0.2 Neutrophils % (Manual) Band Neutrophils % Lymphocytes % (Manual) Monocytes % (Manual) Abs Neuts (Manual) Lymphocytes # (Manual) Monocytes # (Manual) Nucleated RBCs Platelet Estimate Plt Morphology Comment RBC Morphology Hypochromasia Tear Drop Cells [place] Cells Schistocytes Smear Tech's Comments PT 18.7 H 19.4 H INR 1.6 H 1.7 H APTT Sodium Potassium Chloride Carbon Dioxide Anion Gap BUN Creatinine Estim Creat Clear Calc Estimated GFR POC Glucose 135 H Random Glucose Calcium Total Bilirubin AST ALT Alkaline Phosphatase Total Protein Albumin Blood Type Antibody Screen Crossmatch 07/03/25 08:41 WBC RBC Hgb Hct MCV MCH MCHC RDW Plt Count MPV Immature Gran % (Auto) Neut % (Auto) Lymph % (Auto) [place] % (Auto) Eos % (Auto) Baso % (Auto) Lymph # (Auto) [place] # (Auto) Eos # (Auto) Baso # (Auto) Abs Immat Gran (auto) Absolute Neuts (auto) Absolute Nucleated RBC Nucleated RBC % (auto) Neutrophils % (Manual) Band Neutrophils % Lymphocytes % (Manual) Monocytes % (Manual) Abs Neuts (Manual) Lymphocytes # (Manual) Monocytes # (Manual) Nucleated RBCs Platelet Estimate Plt Morphology Comment RBC Morphology Hypochromasia Tear Drop Cells [place] Cells Schistocytes Smear Tech's Comments PT INR APTT Sodium Potassium Chloride Carbon Dioxide Anion Gap BUN Creatinine Estim Creat Clear Calc Estimated GFR POC Glucose Random Glucose Calcium Total Bilirubin AST ALT Alkaline Phosphatase Total Protein Albumin Blood Type A Negative Antibody Screen NEGATIVE Crossmatch See Detail Airway Mallampati Class: II TM Dist: >3cm Neck ROM: Full Loose/Missing/Broken Teeth: No Heart: RRR Lungs: CTA Assessment and Plan Assessment Anesthesia Assessment: Anesthesia Plan Discussed and Chart Reviewed Final Anesthetic Review Family History of Problems with Anesthesia: No History of Problems with Anesthesia: No NPO: Yes ASA Class: III and Emergency Final Preanesthetic Review: No Changes in Pt Med Stat, Meds/Allgs Chart Reviewed, Consent Obtained/Reviewed and Anes Risks/Benef Reviewed Patient Risk: Intermediate Procedure Risk: Low Anesthetic Plan Anesthetic Plan: GA Disposition: Standard PACU
--- NOTE | 2025-07-04 01:40 | P.OP_ITS ---
Operative Note Operative Note Date of Service: 07/04/25 Narrative: Preoperative diagnosis: Recurrent hematoma left thigh Postoperative diagnosis: Same Procedure: Drainage of hematoma left thigh Surgeon: Paddy Kendall MD Guest Experience Representative: None Anesthesia: General endotracheal Indications for procedure: 89-year-old male patient with a chronic hematoma of the left thigh status post excision earlier this week returning with a recurrent hematoma of the left thigh. Bleeding seemed to start after receiving Lovenox injection this morning. Operative findings: Large hematoma with active bleeding noted from small arterial vessels Specimen: None Estimated blood loss: 300 mL of clotted and fresh blood Complications: None Drains: None Procedure details: Patient was brought to the OR and placed in a supine position. After administering general anesthesia the patient was placed with the left hip up by placing a blanket below the hip. The skin around the previous incision was prepped with Betadine and draped in a sterile fashion. A surgical time-out was called the consent confirmed. The patient received preoperative antibiotics and Venodyne boots were in place. The previous incision was opened in the sutures removed. Previous drain was also removed. A large clot was evacuated from the incision. Several areas of active bleeding were identified in the most superior portion of the incision. The wounds were irrigated with saline solution in the site of bleeding confirmed. Several areas of active bleeding were suture ligated using 3-0 Polysorb suture. Wounds were again irrigated and no bleeding identified. Wounds were observed for approximately 5 minutes with no active bleeding. Surgiflo was applied to the surface of the incision for additional hemostasis. No attempt was made to close the incision. Wounds were packed with iodine soaked Kerlix and the wounds dressed with 4 x 4 gauze, ABDs and Elastoplast pressure dressing. The patient tolerated the procedure well. Sponge, instrument, and needle counts reported as correct. The patient was transferred to PACU in stable condition.
[2025-07-04] MEDS: Lactated Ringers 1,000 ML 100 ML IVCONT (02:03)
--- NOTE | 2025-07-04 02:58 | PC.NURSE ---
1930: Pt transferred back to bed and reporting pressure to L hip surgical site. Pt persistently calling RN to the room Q15min and reporting FADI drain filled and pressure to L hip. FADI drain noted to have a golf ball size clot in bulb and serosanguineous fluid. Dilaudid given for pain with no relief. FADI drain continues to actively fill, more clots present in bulb and noted while emptying drain. Drain continues to fill Q15min with rossy sanguineous fluid, 680mL emptied between [id number]. 2149: Dr. Kendall was notified of the increase bleeding and discomfort. Ice packs added to surgical site. Pt transfused with 1 unit PRBC d/t active bleeding. 2314: Dr. Kendall notified this RN he is on his way to hospital. Drain completely clotted at this time and unable to empty. aware. 12am: Report given to OR. Pt continues infusing 1 unit PRBC as he leaves to OR. 2:05am Pt returned to unit post-op, disoriented to time and situation however redirectable. Pressure bandage noted to L hip. FADI drain was removed in OR. Pt reports no discomfort at this time.
[2025-07-04 07:21] LABS: INTERNATIONAL NORM RATIO 1.5 (0.9-1.1); Prothrombin Time 17.6 SEC (10.9-12.4)
[2025-07-04 07:26] LABS: Hematocrit 21.7 % (42.0-52.0); Hemoglobin 7.4 g/dl (14.0-18.0); Mean Corpuscular HGB Conc 34.1 g/dl (31.0-36.0); Mean Corpuscular Hemoglobin 31.2 pg (27.0-33.0); Mean Corpuscular Volume 91.6 fL (80.0-98.0); NRBC Abs Auto 0.030 X10*3/uL (0.0-0.012); NRBC Pct Auto 0.2 /100WBC (0.0-0.2); PLT CLUMP 1; Red Blood Count 2.37 X10*6/uL (4.60-5.80)
[2025-07-04 07:28] LABS: White Blood Count 12.6 X10*3/uL (4.8-10.8)
--- NOTE | 2025-07-04 07:33 | PM.PNGS ---
Subjective Subjective Date of Service: 07/04/25 Interval history: currently not having pain. Physical Exam Vital Signs: Vital Signs: Last Vital Signs Temp 98.7 F 07/04/25 02:00 Pulse 94 07/04/25 02:00 Resp 16 07/04/25 02:00 BP 165/70 H 07/04/25 02:00 Pulse Ox 100 07/04/25 02:00 O2 Del Method Room Air 07/04/25 02:00 O2 Flow Rate 3 07/04/25 01:40 BMI result Body Mass Index 28.0 Skin: Other: compression dressing intact, no strikethrough bleeding. soft today. nontender Objective Data Active Medications Albuterol Sulfate (Albuterol Sulfate 90 Mcg 8 Gm Inhaler) 2 puff INHALE RQ6H PRN PRN Reason: shortness of breath or wheezing Doxazosin Mesylate (Doxazosin Mesylate 2 Mg Tablet) 4 mg PO BEDTIME [place]; Protocol Last Admin: 07/03/25 19:53 Dose: 4 mg Documented By: JUDY Enoxaparin Sodium (Enoxaparin Sodium 120 Mg/0.8 Ml Syringe) 105 mg 1 mg/kg (105 mg) SUBCUT Q12H [facility] On Hold: 07/03/25 17:56 Last Admin: 07/03/25 10:43 Dose: 105 mg Documented By: TIANA Finasteride (Finasteride 5 Mg Tablet) 5 mg PO DAILY [facility] Last Admin: 07/04/25 07:29 Dose: 5 mg Documented By: MICHELLE Hydromorphone HCl (Hydromorphone Hcl 0.5 Mg/0.5 Ml Syringe) 0.5 mg IVPUSH Q3H PRN; Protocol PRN Reason: Pain, Severe (Pain Scale 7-10) Last Admin: 07/03/25 21:54 Dose: 0.5 mg Documented By: JUDY Acetaminophen (Ofirmev) 1,000 mg in 100 mls @ 400 mls/hr IV Q6H PRN PRN Reason: Pain, Mild (Pain Scale 1-3) Last Infusion: 07/03/25 22:55 Dose: Infused Documented By: JUDY Lactated Ringer's (Lr) 1,000 mls @ 100 mls/hr IVCONT .Q10H [facility] Last Admin: 07/04/25 02:03 Dose: 100 mls/hr Documented By: JUDY Non-Formulary Medication (Rosuvastatin) 40 mg PO DAILY [facility] Ondansetron HCl (Ondansetron Hcl 4 Mg/2 Ml Vial) 4 mg IVPUSH QID PRN PRN Reason: Nausea Warfarin Sodium (Warfarin Sodium 5 Mg Tablet) 5 mg PO DAILY@1800 [facility] On Hold: 07/03/25 17:56 Last Admin: 07/02/25 16:07 Dose: Not Given Documented By: TIANA Non-Admin Reason: Physician Held Med Labs 07/03/25 06:37 06/30/25 00:20 Labs: Laboratory Results - last 24 hr 06/30/25 07/03/25 07/03/25 00:24 06:37 08:41 MCV 92.6 MCH 31.9 MCHC 34.5 RDW 24.6 H Plt Count 131 L MPV 10.9 Absolute Nucleated RBC 0.020 H Nucleated RBC % (auto) 0.2 PT INR Blood Type A Negative Antibody Screen NEGATIVE Crossmatch See Detail See Detail 07/04/25 06:50 MCV MCH MCHC RDW Plt Count MPV Absolute Nucleated RBC Nucleated RBC % (auto) PT 17.6 H INR 1.5 H Blood Type Antibody Screen Crossmatch Procedures Date of Service Date of Service: 07/04/25 Progress Note: A&P Assessment and plan (1) Hematoma: Status: Acute (2) Postoperative anemia due to acute blood loss: Status: Acute Plan 89 year old male with a history of mechanical AVR on coumadin, afib, HTN, acute anemia due to post surgical bleeding requiring 2x transfusions. Patient doing okay this morning. Was taken to OR again yesterday for continued bleeding for hemostatsis. Wound was left open, packed and using compression dressings. He is comfortable this morning. Vitals stable this morning, more hypertensive The wound is soft and nontender this morning, no bleeding through the compression dressing, will leave in place for now. Continuing to hold anticoagulation this morning, hospitalist input appreciated. Cardiology consult pending. AM CBC pending, will transfuse further as needed. dressings will remain in place diet as tolerated spirometry as tolerated Time Spent With Patient Time: Total time managing care of this patient today ____ minutes. Quality Stroke Does the patient have a stroke diagnosis?: No VTE Prior VTE?: No VTE Risk Level:: Surgical - moderate VTE Device Contraindication: N/A - Device Ordered VTE Drug Contraindication: N/A - Med Ordered
[2025-07-04 07:57] LABS: Platelet Count 123 X10*3/uL (160-400)
--- NOTE | 2025-07-04 10:04 | P.CONCA_ITS ---
History of Present Illness History of Present Illness Date of Service: 07/04/25 Chief complaint: hematoma left leg Narrative: This is a cardiology consultation regarding bleeding in the context of anticoagulation use. Per patient, he had a mechanical aortic valve placed about 25 years ago and he has been on anticoagulation. On discussion with hospitalist as well as discussion with the patient, essentially he has had resection of hematoma in the left hip multiple times-almost 4. However, each time he gets his surgery it seems that he goes back on anticoagulation with Lovenox and that leads to recurring bleed and leading to repeat interventions. Hence we are consulted to see him regarding if safe to hold anticoagulation. Per patient, he had the valve replaced in [place] 25 years ago and has had no issues whatsoever. Apart from the issue with the hematoma/surgical intervention on the left hip, otherwise he states he feels okay. His left lower extremity had does have some swelling. Review of Systems 2 Review of Systems: Yes all other systems are reviewed and are negative Constitutional: Constitutional: Reports as per HPI and Reports no additional constitutional complaints Eyes: Eyes: Reports as per HPI and Denies no additional eye complaints ENT: Denies system reviewed and no additional complaints, except as documented and Reports as per HPI Cardiovascular: Cardiovascular: Reports as per HPI, Reports no additional cardiovascular complaints, Denies acrocyanosis, Denies cool extremities, Denies chest pain, Denies leg edema, Denies lightheadedness, Denies palpitations and Denies dyspnea Respiratory: Respiratory: Reports as per HPI, Denies no additional respiratory complaints and Denies dyspnea Gastrointestinal: Gastrointestinal: Reports as per HPI and Denies no additional gastrointestinal complaints Genitourinary: Genitourinary: Reports no additional male genitourinary complaints and Reports as per HPI Musculoskeletal: Musculoskeletal: Reports no additional musculoskeletal complaints and Reports as per HPI Integumentary/Breasts: Skin/Breast: Reports system reviewed and no additional complaints, except as docu Neurologic: Reports system reviewed and no additional complaints, except as documented and Reports as per HPI Psychiatric: Psychiatric: Reports no additional psychiatric complaints and Reports as per HPI Endocrine: Endocrine: Reports no additional endocrine complaints, Reports as per HPI and Denies palpitations Hematologic/Lymphatic: Hematologic/Lymphatic: Reports no additional hematologic/lymphatic complaints and Reports as per HPI Allergic/Immunologic: Allergic/Immunologic: Reports no additional allergic/immunologic complaints and Reports as per HPI PMFSH Past Medical History Medical History (Updated 07/04/25 @ 10:11 by Mike Camargo MD) Aortic valve disease Eye injury Prosthetic eye globe Pneumonia Osteoarthritis Anemia Neuropathy Guillain-[place] syndrome HTN (hypertension) Leukopenia Atrial fibrillation Family History Pertinent family history: No pertinent family history Surgical History Surgical History (Updated 07/04/25 @ 10:10 by Mike Camargo MD) Hx of enucleation of right eyeball Hx of cataract extraction H/O colonoscopy Hx of aortic valve replacement History of cholecystectomy Social History Social History Household Members: Spouse Housing: House Are you a primary health care recruiter to a significant other at home: No Do you presently have visiting nurse or other home services: No Alcohol intake: current Alcohol intake frequency: holidays/special occasions only Alcohol type: wine Comment: counts correct Patient Tobacco Use Status: Never used Tobacco service: No Current occupational status: retired Current occupation: retired Current occupational exposures/hazards: No Meds Allergies Allergy/AdvReac Type Severity Reaction Status Date / Time adhesive (ADHESIVE) Allergy Intermediate RASH, Verified 06/30/25 00:05 BLISTERS atenolol (Atenolol) Allergy Mild RASH Verified 06/30/25 00:05 oxycodone Allergy Mild Gastrointestinal Verified 06/30/25 00:05 Upset sotalol (Sotalol) Allergy Mild RASH Verified 06/30/25 00:05 tamsulosin Allergy Unknown reaction Verified 06/30/25 00:05 unknown tramadol Allergy Unknown reaction Verified 06/30/25 00:05 unknown atorvastatin (From Lipitor) AdvReac Severe SEVERE Verified 06/30/25 00:05 ACHES AND PAINS Active Medications: Current Medications Albuterol Sulfate (Albuterol Sulfate 90 Mcg 8 Gm Inhaler) 2 puff INHALE RQ6H PRN PRN Reason: shortness of breath or wheezing Doxazosin Mesylate (Doxazosin Mesylate 2 Mg Tablet) 4 mg PO BEDTIME [facility]; Protocol Last Admin: 07/03/25 19:53 Dose: 4 mg Enoxaparin Sodium (Enoxaparin Sodium 120 Mg/0.8 Ml Syringe) 105 mg 1 mg/kg (105 mg) SUBCUT Q12H [facility] On Hold: 07/03/25 17:56 Last Admin: 07/03/25 10:43 Dose: 105 mg Finasteride (Finasteride 5 Mg Tablet) 5 mg PO DAILY [facility] Last Admin: 07/04/25 07:29 Dose: 5 mg Hydromorphone HCl (Hydromorphone Hcl 0.5 Mg/0.5 Ml Syringe) 0.5 mg IVPUSH Q3H PRN; Protocol PRN Reason: Pain, Severe (Pain Scale 7-10) Last Admin: 07/03/25 21:54 Dose: 0.5 mg Acetaminophen (Ofirmev) 1,000 mg in 100 mls @ 400 mls/hr IV Q6H PRN PRN Reason: Pain, Mild (Pain Scale 1-3) Last Infusion: 07/03/25 22:55 Dose: Infused Non-Formulary Medication (Rosuvastatin) 40 mg PO DAILY [facility] Ondansetron HCl (Ondansetron Hcl 4 Mg/2 Ml Vial) 4 mg IVPUSH QID PRN PRN Reason: Nausea Warfarin Sodium (Warfarin Sodium 5 Mg Tablet) 5 mg PO DAILY@1800 [facility] On Hold: 07/03/25 17:56 Last Admin: 07/02/25 16:07 Dose: Not Given Home Medications ?Medication ?Instructions ?Recorded ?Confirmed ?Last Taken ?Type doxazosin 4 mg tablet 4 mg PO BEDTIME 04/17/2106/29/25 History spironolactone 25 mg tablet 25 mg PO DAILY 03/24/2506/29/25 History furosemide 40 mg tablet 40 mg PO DAILY 06/13/2506/0206/29/25 History lisinopril 20 mg tablet 40 mg PO DAILY 06/13/2506/0206/29/25 History finasteride 5 mg tablet 5 mg PO DAILY 06/30/2506/3006/29/25 History warfarin 1 mg tablet 5 mg PO SUTUWETHSA@1800 06/0206/30/25 06/29/25 History warfarin 4 mg tablet 4 mg PO MOFR@1800 06/30/25 0 06/30/25 06/27/25 History Physical Exam 2 Vital Signs: Vital Signs: Last Vital Signs Temp 97.3 F 07/04/25 07:47 Pulse 94 07/04/25 07:47 Resp 17 07/04/25 07:47 BP 148/65 H 07/04/25 07:47 Pulse Ox 95 07/04/25 07:47 O2 Del Method Room Air 07/04/25 07:47 O2 Flow Rate 3 07/04/25 01:40 BMI result Body Mass Index 28.0 Const: General: comfortable and no acute distress O rientation/consciousness: patient oriented x3 HEENT: Other: Unremarkable Head: Yes normal to inspection Neck: Neck: Yes normal visual inspection Chest: Chest palpation & inspection: normal inspection of the chest Resp: Auscultation: clear to auscultation bilaterally Cardio: Other: Mechanical heart valve sounds noted. GI: Palpation (GI): Soft to palpation Back/Spine/Pelvis: Other: unremarkable Skin: General skin exam: no rashes or lesions noted Neuro: General: patient oriented x3 Extrem: General: Yes normal to inspection Psych: Mental Status: mental status grossly normal Objective Labs and Meds 07/04/25 06:50 06/30/25 00:20 Lab results: Laboratory Results - last 24 hr 06/30/25 07/03/25 07/04/25 00:24 08:41 06:50 WBC 12.6 H RBC 2.37 L Hgb 7.4 L Hct 21.7 L MCV 91.6 MCH 31.2 MCHC 34.1 RDW 22.2 H Plt Count 123 L MPV 12.0 Absolute Nucleated RBC 0.030 H Nucleated RBC % (auto) 0.2 PT 17.6 H INR 1.5 H Blood Type A Negative Antibody Screen NEGATIVE Crossmatch See Detail See Detail ECG Interpretation: In the most recent EKG from July 02, mild sinus tachycardia at 102/Min. In the EKG prior to that, suggestive of atrial fibrillation. Currently telemetry is also suggestive of atrial fibrillation. EKGs going back several years do show atrial fibrillation. Assessment and Plan (1) H/O mechanical aortic valve replacement: Status: Acute (2) Postoperative anemia due to acute blood loss: Status: Acute (3) Hematoma: Status: Acute (4) Paroxysmal atrial fibrillation: Status: Acute Plan Hemoglobin as low as 6.8 but currently 7.4. Platelets 123. Echocardiogram from January 2025-LVEF 55-60%. Normally functioning mechanical aortic prosthesis. Overall, left hip hematoma requiring multiple surgical interventions, anemia requiring transfusions with competing issue of mechanical aortic valve requiring anticoagulation. We discussed about the pros and cons of early anticoagulation initiation in this setting. After long discussion, we discussed and agreed that we will try to hold anticoagulation for about 48 hours from the last surgical intervention time and then try to use Coumadin without a Lovenox bridge. Otherwise, there is going to be a risk of recurrent hematoma requiring interventions. Patient agrees with this plan. Discussed with hospitalist. Procedures Date of Service Date of Service: 07/04/25
--- NOTE | 2025-07-04 12:18 | MHC.CM.PN ---
EMR REVIEWED, PT W/RECURRING BLEEDING HEMATOMA S/P OD1, PER CARDIO PLAN TO HOLD ANTICOAG X48HRS FROM PROCEDURE AND RESTART PT ON COUMADIN, CM WILL CONT TO FOLLOW DC NEEDS.
--- NOTE | 2025-07-04 19:08 | P.PNIM_ITS ---
Subjective Subjective Date of Service: 07/04/25 Interval History: Recurrent bleed requiring surgical cauterization last night; 3rd surgical intervention this admission Feels better this morning No lightheadedness or dizziness BP normotensive Review of Systems Review of Systems: Yes all other systems are reviewed and are negative Physical Exam 2 Exam: Exam: General: AOx3, no acute distress Resp: CTA bilaterally CVS: S1, S2, irregularly irregular rhythm, +mechanical click GI: +BS, NT, no distention; left hip appropriately tender at surgical site, covered in clean bandages. No longer with FADI drain Skin: Warm, dry Neuro: Cranial nerves II-XII grossly intact bilaterally. Motor grossly intact bilaterally. No focal deficits noted Extremities: No edema Psych: Appropriate affect Vital Signs: Vital Signs: Last Vital Signs Temp 99.5 F 07/04/25 15:44 Pulse 97 07/04/25 15:44 Resp 16 07/04/25 15:44 BP 136/63 07/04/25 15:44 Pulse Ox 98 07/04/25 15:44 O2 Del Method Room Air 07/04/25 15:44 O2 Flow Rate 3 07/04/25 01:40 BMI result Body Mass Index 28.0 Objective Data Active Medications Albuterol Sulfate (Albuterol Sulfate 90 Mcg 8 Gm Inhaler) 2 puff INHALE RQ6H PRN PRN Reason: shortness of breath or wheezing Doxazosin Mesylate (Doxazosin Mesylate 2 Mg Tablet) 4 mg PO BEDTIME [facility]; Protocol Last Admin: 07/03/25 19:53 Dose: 4 mg Documented By: JUDY Enoxaparin Sodium (Enoxaparin Sodium 120 Mg/0.8 Ml Syringe) 105 mg 1 mg/kg (105 mg) SUBCUT Q12H [facility] On Hold: 07/03/25 17:56 Last Admin: 07/03/25 10:43 Dose: 105 mg Documented By: TIANA Finasteride (Finasteride 5 Mg Tablet) 5 mg PO DAILY [facility] Last Admin: 07/04/25 07:29 Dose: 5 mg Documented By: MICHELLE Hydromorphone HCl (Hydromorphone Hcl 0.5 Mg/0.5 Ml Syringe) 0.5 mg IVPUSH Q3H PRN; Protocol PRN Reason: Pain, Severe (Pain Scale 7-10) Last Admin: 07/03/25 21:54 Dose: 0.5 mg Documented By: JUYD Acetaminophen (Ofirmev) 1,000 mg in 100 mls @ 400 mls/hr IV Q6H PRN PRN Reason: Pain, Mild (Pain Scale 1-3) Last Infusion: 07/03/25 22:55 Dose: Infused Documented By: JUDY Non-Formulary Medication (Rosuvastatin) 40 mg PO DAILY [facility] Ondansetron HCl (Ondansetron Hcl 4 Mg/2 Ml Vial) 4 mg IVPUSH QID PRN PRN Reason: Nausea Warfarin Sodium (Warfarin Sodium 5 Mg Tablet) 5 mg PO DAILY@1800 [facility] On Hold: 07/03/25 17:56 Last Admin: 07/02/25 16:07 Dose: Not Given Documented By: TIANA Non-Admin Reason: Physician Held Med Labs 07/04/25 06:50 06/30/25 00:20 Labs: Laboratory Results - last 24 hr 07/03/25 07/04/25 08:41 06:50 MCV 91.6 MCH 31.2 MCHC 34.1 RDW 22.2 H Plt Count 123 L MPV 12.0 Absolute Nucleated RBC 0.030 H Nucleated RBC % (auto) 0.2 PT 17.6 H INR 1.5 H Blood Type A Negative Antibody Screen NEGATIVE Crossmatch See Detail Assessment and Plan (1) Postoperative anemia due to acute blood loss: Status: Acute Plan This is a 89-year-old male with a history of mechanical aortic valve, atrial fibrillation on anticoagulation with Coumadin, hypertension, 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 Acute blood loss anemia due to hematoma from left hip surgical site Status post hematoma evacuation 06/30 and repeat cauterizations on 07/02 and 07/04 due to recurrent bleeding Pt with unknown h/o transfusion reaction; requires premedication with Tylenol and Bendryl prior to transfusions Transfused one unit PRBCs on 07/01 and again on 07/02 BP currently normotensive and pt asymtomatic Follow H&H, transfuse with premeds (Tylenol and Benadryl) as necessary Pain management as per general surgery Mechanical aortic valve/chronic atrial fibrillation INR has been subtherapeutic; has been using Lovenox bridge more resuming Coumadin Anticoagulation currently on hold Cardiology consulted, recommend holding anticoagulation 2-3 days and resuming once hemostasis achieved Will resume Coumadin without Lovenox bridge Monitor H&H, INR, and for recurrent bleeding Right arm pain/heaviness, numbness and tingling; resolved Sudden onset on the evening of 07/01/2025 Neuro exam reassuring, no focal deficits noted CT of head negative for acute abnormality Currently back to baseline Likely musculoskeletal due to acute intervention during rapid response for hypotension Thrombocytopenia Appears chronic Trending down likely due to component of dilution from IVF Monitor CBC BPH continue doxazosin, finasteride Hypertension Blood pressure trending down Continue to hold baseline lisinopril, lasix and aldactone Monitor blood pressure closely and resume antihypertensives as necessary HLD Continue statin We will continue to follow along with you. Quality Stroke Does the patient have a stroke diagnosis?: No VTE Prior VTE?: No VTE Risk Level:: Surgical - moderate VTE Device Contraindication: N/A - Device Ordered VTE Drug Contraindication: N/A - Med Ordered
[2025-07-05] VITALS (7 sets, daily range): BP systolic 118–148; BP diastolic 58–72; PULSE 71–99; RESP 15–18; TEMP 36.4–37.2; O2SAT 93–99
[2025-07-05 06:54] LABS: Hematocrit 21.8 % (42.0-52.0); Hemoglobin 7.4 g/dl (14.0-18.0); Mean Corpuscular HGB Conc 33.9 g/dl (31.0-36.0); Mean Corpuscular Hemoglobin 31.5 pg (27.0-33.0); Mean Corpuscular Volume 92.8 fL (80.0-98.0); NRBC Abs Auto 0.030 X10*3/uL (0.0-0.012); NRBC Pct Auto 0.4 /100WBC (0.0-0.2); Platelet Count 137 X10*3/uL (160-400); Red Blood Count 2.35 X10*6/uL (4.60-5.80); White Blood Count 7.1 X10*3/uL (4.8-10.8)
--- NOTE | 2025-07-05 06:58 | P.PNGS_ITS ---
Subjective Subjective Date of Service: 07/05/25 <Tasha Torres - Last Filed: 07/05/25 08:02> 07/06/25 <Ahmet Lucas PA-C - Last Filed: 07/06/25 06:59> Interval history: Pt reported pain last night at around 1 am and 5 am. He rates the pain a 7-8/10 and received dilaudid 0.5mg both times. This morning he reports no pain, nausea, fevers, chills, numbness, tingling, weakness, or trouble swallowing. Wound is clean, dry, and non-erythematous but does feel slightly warm. Marginal bleeding through dressing on the R corner. Pt reports having flatulence and has been on a liquid diet which he tolerates well. Pt is not ambulatory. Hg is stable post transfusion (7.4) <Tasha Torres - Last Filed: 07/05/25 08:02> Physical Exam 2 Vital Signs: Vital Signs: Last Vital Signs Temp 98.9 F 07/05/25 03:39 Pulse 83 07/05/25 03:39 Resp 16 07/05/25 03:39 BP 148/66 H 07/05/25 03:39 Pulse Ox 96 07/05/25 03:39 O2 Del Method Room Air 07/05/25 03:39 O2 Flow Rate 3 07/04/25 01:40 BMI result Body Mass Index 28.0 <Tasha Torres - Last Filed: 07/05/25 08:02> Resp: Effort & Inspection: normal respiratory effort <Tasha Torres Last Filed: 07/05/25 08:02> Skin: Wounds: wounds noted (incision site) <Tasha Torres - Last Filed: 07/05/25 08:02> Extrem: Other: Left hip incision site: Dressings were removed no evidence of current bleeding <Ahmet Lucas PA-C - Last Filed: 07/06/25 06:59> Objective Data Active Medications Albuterol Sulfate (Albuterol Sulfate 90 Mcg 8 Gm Inhaler) 2 puff INHALE RQ6H PRN PRN Reason: shortness of breath or wheezing Doxazosin Mesylate (Doxazosin Mesylate 2 Mg Tablet) 4 mg PO BEDTIME [facility]; Protocol Last Admin: 07/04/25 20:23 Dose: 4 mg Documented By: CEZAR Enoxaparin Sodium (Enoxaparin Sodium 120 Mg/0.8 Ml Syringe) 105 mg 1 mg/kg (105 mg) SUBCUT Q12H [facility] On Hold: 07/03/25 17:56 Last Admin: 07/03/25 10:43 Dose: 105 mg Documented By: TIANA Finasteride (Finasteride 5 Mg Tablet) 5 mg PO DAILY [facility] Last Admin: 07/04/25 07:29 Dose: 5 mg Documented By: MICHELLE Hydromorphone HCl (Hydromorphone Hcl 0.5 Mg/0.5 Ml Syringe) 0.5 mg IVPUSH Q3H PRN; Protocol PRN Reason: Pain, Severe (Pain Scale 7-10) Last Admin: 07/05/25 04:55 Dose: 0.5 mg Documented By: CEZAR Acetaminophen (Ofirmev) 1,000 mg in 100 mls @ 400 mls/hr IV Q6H PRN PRN Reason: Pain, Mild (Pain Scale 1-3) Last Infusion: 07/03/25 22:55 Dose: Infused Documented By: JUDY Non-Formulary Medication (Rosuvastatin) 40 mg PO DAILY [facility] Ondansetron HCl (Ondansetron Hcl 4 Mg/2 Ml Vial) 4 mg IVPUSH QID PRN PRN Reason: Nausea Warfarin Sodium (Warfarin Sodium 5 Mg Tablet) 5 mg PO DAILY@1800 [facility] On Hold: 07/03/25 17:56 Last Admin: 07/02/25 16:07 Dose: Not Given Documented By: TIANA Non-Admin Reason: Physician Held Med <Tasha Torres - Last Filed: 07/05/25 08:02> Labs CBC & Chem 7: 07/05/25 06:16 06/30/25 00:20 <Tasha Torres - Last Filed: 07/05/25 08:02> Labs: Laboratory Results - last 24 hr 07/04/25 07/05/25 06:50 06:16 MCV 91.6 92.8 MCH 31.2 31.5 MCHC 34.1 33.9 RDW 22.2 H 21.9 H Plt Count 123 L 137 L MPV 12.0 11.9 Absolute Nucleated RBC 0.030 H 0.030 H Nucleated RBC % (auto) 0.2 0.4 H PT 17.6 H INR 1.5 H <Tasha Aleksandermateo - Last Filed: 07/05/25 08:02> Procedures Date of Service Date of Service: 07/05/25 <Tasha Torres - Last Filed: 07/05/25 08:02> 07/06/25 <Ahmet Lucas PA-C - Last Filed: 07/06/25 06:59> Progress Note: A&P Assessment and plan (1) Acute on chronic anemia: Status: Acute <Tasha Aleksandermateo - Last Filed: 07/05/25 08:02> (2) Hematoma: Status: Acute <Tasha Aleksandermateo - Last Filed: 07/05/25 08:02> (3) S/P evacuation of hematoma: Status: Acute <Tasha Aleksandermateo - Last Filed: 07/05/25 08:02> Assessment and Plan: 89 yo male with PMH of mechanical AVR on coumadin, HTN, and acute anemia due to post surgical bleeding requiring 2x transfusions, s/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 He reported pain last night and received Dilaudid but is doing better now. Post dressing change this morning, wound is healing well and shows sign of hemostasis. 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 He reported pain last night and received Dilaudid but is doing better now. Post dressing change this morning, wound is healing well and shows sign of hemostasis. Continue dressing changes, wound was packed and has compression dressing, last change was this morning 7:10am Continue to hold Anticoagulation until 07/06/25 and restart Coumadin without Lovenox bridge (per Cardiology consult) Advance diet to soft foods as tolerated Ambulate as tolerated Patient seen and examined independently. I agree with the above assessment and plan. We will continue with wound care, patient will resume warfarin tomorrow per Cardiology <Ahmet Lucas PA-C - Last Filed: 07/06/25 06:59> Time Spent With Patient Time: Total time managing care of this patient today ____ minutes. <Tasha Torres - Last Filed: 07/05/25 08:02> Quality Stroke Does the patient have a stroke diagnosis?: No <Tasha Torres - Last Filed: 07/05/25 08:02> VTE Prior VTE?: No <Tasha Torres - Last Filed: 07/05/25 08:02> VTE Risk Level:: Surgical - moderate <Tasha Torres - Last Filed: 07/05/25 08:02> VTE Device Contraindication: N/A - Device Ordered <Tasha Torres - Last Filed: 07/05/25 08:02> VTE Drug Contraindication: N/A - Med Ordered <Tasha Torres - Last Filed: 07/05/25 08:02>
--- NOTE | 2025-07-05 07:46 | P.PNGS_ITS ---
Subjective Subjective Date of Service: 07/05/25 Interval history: Patient reports some soreness during the night requiring pain medication but otherwise feels well. Some drainage noted on dressing today. Physical Exam 2 Vital Signs: Vital Signs: Last Vital Signs Temp 98.9 F 07/05/25 03:39 Pulse 83 07/05/25 03:39 Resp 16 07/05/25 03:39 BP 148/66 H 07/05/25 03:39 Pulse Ox 96 07/05/25 03:39 O2 Del Method Room Air 07/05/25 03:39 O2 Flow Rate 3 07/04/25 01:40 BMI result Body Mass Index 28.0 Const: Other: Awake and alert, no acute distress, oriented x3 Resp: Other: Breathing comfortably on room air, no respiratory distress GI: Other: Soft and nondistended Extrem: Other: Dressings changed to left wound. Packing removed and no active bleeding identified. Wounds repacked with Xeroform followed by Kerlix moistened with saline followed by 4 x 4 gauze and ABD pads secured with Elastoplast. Patient tolerated dressing change well Objective Data Active Medications Albuterol Sulfate (Albuterol Sulfate 90 Mcg 8 Gm Inhaler) 2 puff INHALE RQ6H PRN PRN Reason: shortness of breath or wheezing Doxazosin Mesylate (Doxazosin Mesylate 2 Mg Tablet) 4 mg PO BEDTIME [facility]; Protocol Last Admin: 07/04/25 20:23 Dose: 4 mg Documented By: CEZAR Enoxaparin Sodium (Enoxaparin Sodium 120 Mg/0.8 Ml Syringe) 105 mg 1 mg/kg (105 mg) SUBCUT Q12H [facility] On Hold: 07/03/25 17:56 Last Admin: 07/03/25 10:43 Dose: 105 mg Documented By: TIANA Finasteride (Finasteride 5 Mg Tablet) 5 mg PO DAILY [facility] Last Admin: 07/05/25 07:20 Dose: 5 mg Documented By: MICHELLE Hydromorphone HCl (Hydromorphone Hcl 0.5 Mg/0.5 Ml Syringe) 0.5 mg IVPUSH Q3H PRN; Protocol PRN Reason: Pain, Severe (Pain Scale 7-10) Last Admin: 07/05/25 07:17 Dose: 0.5 mg Documented By: MICHELLE Acetaminophen (Ofirmev) 1,000 mg in 100 mls @ 400 mls/hr IV Q6H PRN PRN Reason: Pain, Mild (Pain Scale 1-3) Last Infusion: 07/03/25 22:55 Dose: Infused Documented By: JUDY Non-Formulary Medication (Rosuvastatin) 40 mg PO DAILY [facility] Ondansetron HCl (Ondansetron Hcl 4 Mg/2 Ml Vial) 4 mg IVPUSH QID PRN PRN Reason: Nausea Warfarin Sodium (Warfarin Sodium 5 Mg Tablet) 5 mg PO DAILY@1800 [facility] On Hold: 07/03/25 17:56 Last Admin: 07/02/25 16:07 Dose: Not Given Documented By: TIANA Non-Admin Reason: Physician Held Med Labs 07/05/25 06:16 06/30/25 00:20 Labs: Laboratory Results - last 24 hr 07/04/25 07/05/25 06:50 06:16 MCV 91.6 92.8 MCH 31.2 31.5 MCHC 34.1 33.9 RDW 22.2 H 21.9 H Plt Count 123 L 137 L MPV 12.0 11.9 Absolute Nucleated RBC 0.030 H 0.030 H Nucleated RBC % (auto) 0.2 0.4 H Procedures Date of Service Date of Service: 07/05/25 Progress Note: A&P Assessment and plan (1) Hematoma: Status: Acute Plan Patient remains hemodynamically stable with no evidence of active bleeding at this time. Dressings were changed this morning and repacked. Plan to hold Coumadin until tomorrow (48 hours postop). Continue local wound care. Out of bed into chair today. Time Spent With Patient Time: Total time managing care of this patient today ____ minutes. Quality Stroke Does the patient have a stroke diagnosis?: No VTE Prior VTE?: No VTE Risk Level:: Surgical - moderate VTE Device Contraindication: N/A - Device Ordered VTE Drug Contraindication: N/A - Med Ordered
[2025-07-05 07:54] LABS: INTERNATIONAL NORM RATIO 1.3 (0.9-1.1); Prothrombin Time 15.2 SEC (10.9-12.4)
--- NOTE | 2025-07-05 08:49 | HO.POSTANES ---
Post Anesthesia Evaluation Post Anesthesia Evaluation Date of Service: 07/05/25 Vital Signs: Vital Signs Temp Pulse Resp BP Pulse Ox O2 Del Method 07/05/25 07:48 98.0 F 99 15 129/60 93 Room Air 07/05/25 03:39 98.9 F 83 16 148/66 H 96 Room Air 07/04/25 23:45 98.7 F 86 16 145/66 H 95 Room Air Anesthesia: General Mental Status: Awake Pain Control: Satisfactory Nausea/Vomiting: None Hydration: Adequate Anesthesia-Related Issues: No Anes. Related Issues
--- NOTE | 2025-07-05 09:54 | PM.PNCARD ---
Subjective Subjective Date of Service: 07/05/25 Interval history: He states that he feels well. No clear cardiac complaints. No further bleeding from the surgical site. Review of Systems Review of Systems Yes all other systems are reviewed and are negative Constitutional: Reports as per HPI and Reports no additional constitutional complaints Eyes: Reports as per HPI and Denies no additional eye complaints Denies system reviewed and no additional complaints, except as documented and Reports as per HPI Cardiovascular: Reports as per HPI, Reports no additional cardiovascular complaints, Denies acrocyanosis, Denies cool extremities, Denies chest pain, Denies leg edema, Denies lightheadedness, Denies palpitations and Denies dyspnea Respiratory: Reports as per HPI, Denies no additional respiratory complaints and Denies dyspnea Gastrointestinal: Reports as per HPI and Denies no additional gastrointestinal complaints Genitourinary: Reports no additional male genitourinary complaints and Reports as per HPI Musculoskeletal: Reports no additional musculoskeletal complaints and Reports as per HPI Skin/Breast: Reports system reviewed and no additional complaints, except as docu Reports system reviewed and no additional complaints, except as documented and Reports as per HPI Psychiatric: Reports no additional psychiatric complaints and Reports as per HPI Endocrine: Reports no additional endocrine complaints, Reports as per HPI and Denies palpitations Hematologic/Lymphatic: Reports no additional hematologic/lymphatic complaints and Reports as per HPI Allergic/Immunologic: Reports no additional allergic/immunologic complaints and Reports as per HPI Physical Exam Vital Signs: Last Vital Signs Temp 98.0 F 07/05/25 07:48 Pulse 99 07/05/25 07:48 Resp 15 07/05/25 07:48 BP 129/60 07/05/25 07:48 Pulse Ox 93 07/05/25 07:48 O2 Del Method Room Air 07/05/25 07:48 O2 Flow Rate 3 07/04/25 01:40 BMI result Body Mass Index 28.0 Const General: comfortable and no acute distress Orientation/consciousness: patient oriented x3 HEENT Other: Unremarkable Head: Yes normal to inspection Neck Neck: Yes normal visual inspection Chest Chest palpation & inspection: normal inspection of the chest Resp Auscultation: clear to auscultation bilaterally Cardio Other: Mechanical heart valve sounds noted. GI Palpation (GI): Soft to palpation Back/Spine/Pelvis Other: unremarkable Skin General skin exam: no rashes or lesions noted Neuro General: patient oriented x3 Extrem General: Yes normal to inspection Psych Mental Status: mental status grossly normal Objective Labs and Meds 07/05/25 06:16 06/30/25 00:20 Lab results: Laboratory Results - last 24 hr 07/03/25 07/05/25 07/05/25 08:41 06:16 07:21 WBC 7.1 RBC 2.35 L Hgb 7.4 L Hct 21.8 L MCV 92.8 MCH 31.5 MCHC 33.9 RDW 21.9 H Plt Count 137 L MPV 11.9 Absolute Nucleated RBC 0.030 H Nucleated RBC % (auto) 0.4 H PT 15.2 H INR 1.3 H Crossmatch See Detail Progress Note: A&P Assessment and plan (1) H/O mechanical aortic valve replacement: Status: Acute (2) Postoperative anemia due to acute blood loss: Status: Acute (3) Hematoma: Status: Acute (4) Paroxysmal atrial fibrillation: Status: Acute Plan Hemoglobin as low as 6.8 but currently 7.4. Platelets 137 Echocardiogram from January 2025-LVEF 55-60%. Normally functioning mechanical aortic prosthesis. Overall, left hip hematoma requiring multiple surgical interventions, anemia requiring transfusions with competing issue of mechanical aortic valve requiring anticoagulation. For the last 24 hours, he has not had any any further bleeding issues. We again discussed about the timing of initiating anticoagulation. Discussed pros and cons of early versus late. Discussed about repeat surgical bleeding versus thrombotic complications from the valve. We agreed that we will start Coumadin tonight as long as there is no further bleeding for the rest of the day. Hold off on Lovenox. Discussed with Dr. Kendall. With regard to atrial fibrillation, rate is slightly fast. Just about 105/Min. We can start him on some beta-blockers. Time Spent With Patient Time: Total time managing care of this patient today ____ minutes. Progress Note: Quality Stroke Does the patient have a stroke diagnosis?: No Procedures Date of Service Date of Service: 07/05/25
--- OUTSIDE RECORDS SUMMARY | 2025-07-05 11:10 | XMS_ITS | Patient Health Record ---
[facility] Address [address] [place] [address] Care Team Providers Care Chief Information Officer Name Role Phone Milton Durán MD Primary Care Provider UnavailFady Mcfarland Unavailable [phone] Allergies Allergen (clinical drug ingredient) Drug/Non Drug [...] Problem Acquired hammer toe of right foot ([id number]) Other hammer toe(s) (acquired), right foot (M20.41) Active confirmed Problem Other hammer toe(s) (acquired), left foot (M20.42) Active confirmed Plan Of Treatment Pending Test Test Name Order Date X ray : Foot, left 3V 04/24/2022 X ray : Foot, right 3V 04/24/2022 Insurance Providers Payer Name Payer Address Payer Phone Subscriber Number Group Number Insured Name Patient Relationship to Insured Coverage Start Date Coverage End Date Medicare National [employer]t [employer] [address] [facility] [address] [id number] Keegan Fagan Jr Self - patient is the insured [facility] ([facility]) [address] [place] [address] [phone] [id number] Keegan Fagan Jr Self - patient is the insured Medical (General) History Medical History History ICD Code Arthritis Back,Hip,and Knee pain Gall bladder problems Heart disease High blood pressure Scarlet fever Measles Mumps Chicken pox Surgical History Surgery Date(Month/Year) Right eye surgery 195 gall bladder 2003 heart surgery unspecified 2000 Hospitalization History Reason Date(Month/Year) [facility] 1 week 10/2021
--- OUTSIDE RECORDS SUMMARY | 2025-07-05 11:10 | XMS_ITS | Clinical Summary ---
Author Organization [address] [place] [address] [place] [phone] Phone Care Team Providers Care Court Bailiff Name Role Phone Milton Durán MD Primary [...] Coumadin endocarditis prophylaxis. CHF (congestive heart failure) (CMS/[facility] V24, CMS /[facility] V28) 06/05/2021 Overview (09/27/2024): Last Assessment [...] 06/05/2021 Overview (09/27/2024): Syncope Sick sinus syndrome (CMS/[facility] V24, CMS/[facility] V28) 0 06/05/2021 Overview (09/27/2024): Sick sinus syndrome Encounters Date Type Department Care Team Description 06/15/2025 1:30 PM EDT Ancillary Procedure [facility] - [address] [place] [place] [phone] Chronic diastolic congestive heart failure (CMS/HCC V24, CMS/HCC V28); Atrial fibrillation and flutter (CMS/HCC V24, CMS/HCC V28) 06/15/2025 Telephone [facility] [address] [place] [address] Milton Durán MD Medical Records 06/14/2025 7:40 AM EDT Consult [facility] - [address] [place] [phone] Trish Bhardwaj NP Chronic diastolic congestive heart failure (CMS/HCC V24, CMS/HCC V28) (Primary Dx); Atrial fibrillation and flutter (CMS/HCC V24, CMS/HCC V28); Pulmonary hypertension (CMS/HCC V24, CMS/HCC V28); Hx of mechanical aortic valve replacement; Preop cardiovascular exam 06/10/2025 Telephone [facility] [address] [place] [phone] Milton Durán MD Medical Records 05/17/2025 Telephone [facility] - [address] [place] [phone] Tanmay Flores MD Pre-op Visit from Last [...] EST Encounter for other general examination intermediate (current) use of 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 from Last 3 Months or Most Recently Relevant to Health Maintenance Results * (ABNORMAL) TRANSTHORACIC ECHOCARDIOGRAM (TTE) COMPLETE W/ CONTRAST (06/15/2025 2:29 PM EDT) Left Atrium Minor [place] 6.4 cm CV PACS Left Atrium Major [place] 6.3 cm CV PACS LA Area Sys [...] with the patient in a supine position. us Trish Bhardwaj NP CV ECHO PROCEDURES Final Result * ECG 12 lead (06/14/2025 7:48 AM EDT) Pathologist [facility] Ventricular Rate ECG 65 BPM GEMUSE Atrial Rate 56 BPM GEMUSE QRS Duration 140 ms GEMUSE Q-T Interval 434 ms GEMUSE QTc 451 ms GEMUSE R [place] -18 degrees GEMUSE T [place] 16 degrees GEMUSE ECG Interpretation Atrial fibrillation Incomplete left bundle branch block No significant change was found compared with EKG from 08/2024. Confirmed by Marcin FLORES YUFENG ([id number]) on 06/14/2025 10:54:56 AM GEMUSE 06/14/2025 7:48 AM EDT 06/14/2025 10:54 AM EDT us Trish Bhardwaj NP ECG ORDERABLES Final Result GEMUSE * (ABNORMAL) Comprehensive metabolic panel (01/17/2025 6:19 AM EST) [facility] Sodium 137 133 - 145 mmol/L LAB CHEMISTRY METHOD 01/17/2025 1:53 PM EST [facility] Potassium 3.9 3.5 - 5.5 mmol/L LAB CHEMISTRY METHOD 01/17/2025 1:53 PM EST [facility] Chloride 103 96 - 110 mmol/L LAB CHEMISTRY METHOD 01/17/2025 1:53 PM EST [facility] CO2 32 21 - 32 mmol/L LAB CHEMISTRY METHOD 01/17/2025 1:53 PM EST [facility] Anion Gap 2(L) 3 - 11 LAB CHEMISTRY METHOD 01/17/2025 1:53 PM [facility] Glucose 77 70 - 100 mg/dL LAB CHEMISTRY METHOD 01/17/2025 1:53 PM [facility] BUN 22 5 - 25 mg/dL LAB CHEMISTRY METHOD 01/17/2025 1:53 PM [facility] Creatinine 0.89 0.70 - 1.30 mg/dL LAB CHEMISTRY METHOD 01/17/2025 1:53 PM [facility] eGFR 82 >=60 mL/min/1. 73m2 LAB CHEMISTRY METHOD 01/17/2025 1:53 PM [facility] Comment:Calculation based on the Chronic Kidney Disease Epidemiology Collaboration (CKD-EPI) equation refit without adjustment for race. BUN/Creatinine Ratio 24.7 LAB CHEMISTRY METHOD 01/17/2025 1:53 PM [facility] Calcium 8.2(L) 8.5 - 10.5 mg/dL LAB CHEMISTRY METHOD 01/17/2025 1:53 PM [facility] AST (SGOT) 26 10 - 42 unit/L LAB CHEMISTRY METHOD 01/17/2025 1:53 PM [facility] ALT (SGPT) 23 10 - 60 unit/L LAB CHEMISTRY METHOD 01/17/2025 1:53 PM [facility] Alkaline Phosphatase 59 42 - 121 unit/L LAB CHEMISTRY METHOD 01/17/2025 1:53 PM [facility] Total Protein 7.2 6.0 - 8.0 g/dL LAB CHEMISTRY METHOD 01/17/2025 1:53 PM [facility] Albumin 2.9(L) 3.2 - 5.0 g/dL LAB CHEMISTRY METHOD 01/17/2025 1:53 PM [facility] Total Bilirubin 0.8 0.0 - 1.4 mg/dL LAB CHEMISTRY METHOD 01/17/2025 1:53 PM EST [facility] Blood Venous blood specimen / Unknown Venipuncture / Unknown 01/17/2025 6:19 AM EST 01/17/2025 12:22 PM EST us Bonilla Sosa MD LAB BLOOD ORDERABLES Final Res ult [facility] [address] [place] [address], from Last 3 Months or Most Recently Relevant to Health Maintenance Insurance MEDICARE [facility] [address] Care Teams Court Bailiff Relationship Specialty Start Date End Date Milton Durán MD [address] [place] [address] [place] [address] PCP - General 02/03/18
--- OUTSIDE RECORDS SUMMARY | 2025-07-05 11:10 | XMS_ITS | Clinical Summary ---
Author Organization [facility] Address [address] [address] Phone Care Team Providers Care Smokehouse Operator Name Role Phone Milton Durán MD Primary [...] Problem Noted Date Diagnosed Date Atherosclerosis of [place] co ronary artery of [place] heart without angina pectoris 02/03/2017 Mixed hyperlipidemia [...] file Insurance MEDICARE PART A & B [facility] TOTAL CHOICE INDEMNITY MEDICARE PART A & B [facility] TOTAL CHOICE INDEMNITY MEDICARE PART A & B [facility] TOTAL CHOICE INDEMNITY MEDICARE PART A & B [facility] TOTAL CHOICE INDEMNITY MEDICARE PART A & B [facility] TOTAL CHOICE INDEMNITY MEDICARE PART A & B Member Subscriber Plan / Payer (Ef fective 2001-Present) Name:Keegan Fagan Member ID:[id number] Relation to Subscriber:Self Name:Keegan Fagan Subscriber ID:[id number] Payer ID:[id number] Group ID:Not on file Type:Medicare Address: [facility] [employer] [facility] [address] [place] [phone] [facility] TOTAL CHOICE INDEMNITY MEDICARE PART A & B [facility] TOTAL CHOICE INDEMNITY MEDICARE PART A & B [employer] TOTAL CHOICE INDEMNITY MEDICARE PART A & B [employer] [facility] TOTAL CHOICE INDEMNITY [place] A [place] [phone] [facility] TOTAL CHOICE INDEMNITY Care Teams Smokehouse Operator Relationship Specialty Start Date End Date Milton Durán MD [address] [place] [address] [place] [address] PCP - General 05/31/14 Additional Source Comments The information contained in this document represents components of the legal health record. It is not the complete legal health record.[facility]
--- NOTE | 2025-07-05 13:40 | HO.PM.IMPN ---
Subjective Subjective Date of Service: 07/05/25 Interval History: Feeling much better No bleeding No acute events overnight Denies lightheadedness or dizziness Pain well controlled Review of Systems Review of Systems: Yes all other systems are reviewed and are negative Physical Exam Exam: Exam: General: AOx3, no acute distress Resp: CTA bilaterally CVS: S1, S2, irregularly irregular rhythm, +mechanical click GI: NT, no distention Skin: Warm, dry Neuro: Cranial nerves II-XII grossly intact bilaterally. Motor grossly intact bilaterally. No focal deficits noted Extremities: Left hip appropriately tender at surgical site, covered in clean bandages. No longer with FADI drain. 2+ pitting edema left leg, non-tender Psych: Appropriate affect Vital Signs: Vital Signs: Last Vital Signs Temp 97.6 F 07/05/25 10:58 Pulse 92 07/05/25 10:58 Resp 16 07/05/25 10:58 BP 127/62 07/05/25 10:58 Pulse Ox 96 07/05/25 10:58 O2 Del Method Room Air 07/05/25 10:58 O2 Flow Rate 3 07/04/25 01:40 BMI result Body Mass Index 28.0 Objective Data Active Medications Albuterol Sulfate (Albuterol Sulfate 90 Mcg 8 Gm Inhaler) 2 puff INHALE RQ6H PRN PRN Reason: shortness of breath or wheezing Doxazosin Mesylate (Doxazosin Mesylate 2 Mg Tablet) 4 mg PO BEDTIME [facility]; Protocol Last Admin: 07/04/25 20:23 Dose: 4 mg Documented By: CEZAR Enoxaparin Sodium (Enoxaparin Sodium 120 Mg/0.8 Ml Syringe) 105 mg 1 mg/kg (105 mg) SUBCUT Q12H [facility] On Hold: 07/03/25 17:56 Last Admin: 07/03/25 10:43 Dose: 105 mg Documented By: TIANA Finasteride (Finasteride 5 Mg Tablet) 5 mg PO DAILY [facility] Last Admin: 07/05/25 07:20 Dose: 5 mg Documented By: MICHELLE Hydromorphone HCl (Hydromorphone Hcl 0.5 Mg/0.5 Ml Syringe) 0.5 mg IVPUSH Q3H PRN; Protocol PRN Reason: Pain, Severe (Pain Scale 7-10) Last Admin: 07/05/25 10:53 Dose: 0.5 mg Documented By: MICHELLE Acetaminophen (Ofirmev) 1,000 mg in 100 mls @ 400 mls/hr IV Q6H PRN PRN Reason: Pain, Mild (Pain Scale 1-3) Last Infusion: 07/03/25 22:55 Dose: Infused Documented By: JUDY Metoprolol Tartrate (Metoprolol Tartrate 25 Mg Tablet) 25 mg PO BID [facility]; Protocol Last Admin: 07/05/25 10:53 Dose: 25 mg Documented By: MICHELLE Pt Own (Rosuvastatin (40 Mg Tablet)) 40 mg PO DAILY [facility] Ondansetron HCl (Ondansetron Hcl 4 Mg/2 Ml Vial) 4 mg IVPUSH QID PRN PRN Reason: Nausea Warfarin Sodium (Warfarin Sodium 5 Mg Tablet) 5 mg PO DAILY@1800 [facility] On Hold: 07/03/25 17:56 Last Admin: 07/02/25 16:07 Dose: Not Given Documented By: TIANA Non-Admin Reason: Physician Held Med Labs 07/05/25 06:16 06/30/25 00:20 Labs: Laboratory Results - last 24 hr 07/03/25 07/05/25 07/05/25 08:41 06:16 07:21 MCV 92.8 MCH 31.5 MCHC 33.9 RDW 21.9 H Plt Count 137 L MPV 11.9 Absolute Nucleated RBC 0.030 H Nucleated RBC % (auto) 0.4 H PT 15.2 H INR 1.3 H Crossmatch See Detail Assessment and Plan (1) Postoperative anemia due to acute blood loss: Status: Acute Plan This is a 89-year-old male with a history of mechanical aortic valve, atrial fibrillation on anticoagulation with Coumadin, hypertension, 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 Acute blood loss anemia due to hematoma from left hip surgical site Status post hematoma evacuation 06/30 and repeat cauterizations on 07/02 and 07/04 due to recurrent bleeding Pt with unknown h/o transfusion reaction; requires premedication with Tylenol and Bendryl prior to transfusions Transfused one unit PRBCs on 07/01 and again on 07/02 BP currently normotensive and pt asymtomatic Follow H&H, transfuse with premeds (Tylenol and Benadryl) as necessary Pain management as per general surgery Mechanical aortic valve/chronic atrial fibrillation Anticoagulation has been intermittently on hold during stay Cardiology consulted, recommend resuming Coumadin without Lovenox bridge Will resume Coumadin today Cardiology also recommended starting on metoprolol 25mg bid due to tachycardia Monitor H&H, INR, and for recurrent bleeding Right arm pain/heaviness, numbness and tingling; resolved Sudden onset on the evening of 07/01/2025 Neuro exam reassuring, no focal deficits noted CT of head negative for acute abnormality Currently back to baseline Likely musculoskeletal due to acute intervention during rapid response for hypotension Thrombocytopenia Appears chronic Trending down likely due to component of dilution from IVF Monitor CBC BPH continue doxazosin, finasteride Hypertension Blood pressure trending down Continue to hold baseline lisinopril, lasix and aldactone Monitor blood pressure closely and resume antihypertensives as necessary HLD Continue statin We will continue to follow along with you. Quality Stroke Does the patient have a stroke diagnosis?: No VTE Prior VTE?: No VTE Risk Level:: Surgical - moderate VTE Device Contraindication: N/A - Device Ordered VTE Drug Contraindication: N/A - Med Ordered
[2025-07-05] MEDS: PT OWN (Rosuvastatin 40 mg tablet) 40 EACH PO (14:04)
[2025-07-06] VITALS (8 sets, daily range): BP systolic 121–157; BP diastolic 58–74; PULSE 72–87; RESP 16–20; TEMP 36.6–37.1; O2SAT 95–98
--- NOTE | 2025-07-06 | ECG_ITS ---
Test Reason : afib Blood Pressure : */* mmHG Vent. Rate : 86 BPM Atrial Rate : * BPM P-R Int : * ms QRS Dur : 148 ms QT Int : 380 ms P-R-T Axes : * -19 84 degrees QTcB Int : 454 ms Atrial fibrillation Intra-ventricular conduction delay Abnormal ECG When compared with ECG of 02-Jul-2025 10:05, Atrial fibrillation has replaced Sinus rhythm Left bundle branch block is now Intra-ventricular conduction delay Present Referred By: Izzy Cano Electronically Signed By: MARYSE BRAR
--- NOTE | 2025-07-06 07:03 | PM.PNGS ---
Subjective Subjective Date of Service: 07/06/25 Interval history: Pt began receiving Coumadin 5mg at around 5:30pm last night. Per the overnight nurse, there was a bleeding through the packing. She checked around 4:25am and outlined an area in the central portion of the dressing where the bleed was present. Pt reports getting up and into the chair yesterday. He was started on solid foods but reports loss of appetite. Pt denies numbness, tingling, nausea vomiting, or weakness. He is expressing frustration today and would like come off the Coumadin until the wound heals. He also belives moving around is disrupting the healing process. I uncovered the dressing from the inferior border and there was bright red blood trickling down. Physical Exam Vital Signs: Vital Signs: Last Vital Signs Temp 98.8 F 07/06/25 04:00 Pulse 82 07/06/25 04:00 Resp 16 07/06/25 04:00 BP 132/65 07/06/25 04:00 Pulse Ox 98 07/06/25 04:00 O2 Del Method Room Air 07/06/25 04:00 O2 Flow Rate 3 07/04/25 01:40 BMI result Body Mass Index 28.0 Objective Data Active Medications Albuterol Sulfate (Albuterol Sulfate 90 Mcg 8 Gm Inhaler) 2 puff INHALE RQ6H PRN PRN Reason: shortness of breath or wheezing Doxazosin Mesylate (Doxazosin Mesylate 2 Mg Tablet) 4 mg PO BEDTIME [facility]; Protocol Last Admin: 07/05/25 21:34 Dose: 4 mg Documented By: LISA Finasteride (Finasteride 5 Mg Tablet) 5 mg PO DAILY [facility] Last Admin: 07/05/25 07:20 Dose: 5 mg Documented By: MICHELLE Hydromorphone HCl (Hydromorphone Hcl 0.5 Mg/0.5 Ml Syringe) 0.5 mg IVPUSH Q3H PRN; Protocol PRN Reason: Pain, Severe (Pain Scale 7-10) Last Admin: 07/06/25 05:05 Dose: 0.5 mg Documented By: LISA Acetaminophen (Ofirmev) 1,000 mg in 100 mls @ 400 mls/hr IV Q6H PRN PRN Reason: Pain, Mild (Pain Scale 1-3) Last Infusion: 07/03/25 22:55 Dose: Infused Documented By: JUDY Metoprolol Tartrate (Metoprolol Tartrate 25 Mg Tablet) 25 mg PO BID [facility]; Protocol Last Admin: 07/05/25 21:33 Dose: 25 mg Documented By: LISA Pt Own (Rosuvastatin (40 Mg Tablet)) 40 mg PO DAILY [facility] Last Admin: 07/05/25 14:04 Dose: 40 mg Documented By: MICHELLE Ondansetron HCl (Ondansetron Hcl 4 Mg/2 Ml Vial) 4 mg IVPUSH QID PRN PRN Reason: Nausea Warfarin Sodium (Warfarin Sodium 5 Mg Tablet) 5 mg PO DAILY@1800 [facility] Last Admin: 07/05/25 17:39 Dose: 5 mg Documented By: MICHELLE Labs 07/05/25 06:16 06/30/25 00:20 Labs: Laboratory Results - last 24 hr 07/03/25 07/05/25 08:41 07:21 PT 15.2 H INR 1.3 H Crossmatch See Detail Procedures Date of Service Date of Service: 07/06/25 Progress Note: A&P Assessment and plan Plan Consult cardiology to determine whether to stop the Coumadin Measuring Machine Tender patient on the importance of ambulating Time Spent With Patient Time: Total time managing care of this patient today ____ minutes. Quality Stroke Does the patient have a stroke diagnosis?: No VTE Prior VTE?: No VTE Risk Level:: Surgical - moderate VTE Device Contraindication: N/A - Device Ordered VTE Drug Contraindication: N/A - Med Ordered
[2025-07-06 07:09] LABS: INTERNATIONAL NORM RATIO 1.2 (0.9-1.1); Prothrombin Time 14.2 SEC (10.9-12.4)
[2025-07-06 07:10] LABS: Mean Corpuscular HGB Conc 33.5 g/dl (31.0-36.0); Mean Corpuscular Hemoglobin 31.1 pg (27.0-33.0); Mean Corpuscular Volume 92.9 fL (80.0-98.0); NRBC Abs Auto 0.030 X10*3/uL (0.0-0.012); NRBC Pct Auto 0.5 /100WBC (0.0-0.2); PLT CLUMP 1; Red Blood Count 2.25 X10*6/uL (4.60-5.80)
--- NOTE | 2025-07-06 07:45 | PM.PNGS ---
Subjective Subjective Date of Service: 07/06/25 Interval history: Patient noted to have some bloody output from around the dressing. Denies significant hip pain at this time. Did get a dose of Coumadin last night. He is interested in stopping the Coumadin but we will talk with Cardiology regarding this. Physical Exam Vital Signs: Vital Signs: Last Vital Signs Temp 97.9 F 07/06/25 07:14 Pulse 86 07/06/25 07:14 Resp 18 07/06/25 07:14 BP 157/74 H 07/06/25 07:14 Pulse Ox 95 07/06/25 07:14 O2 Del Method Room Air 07/06/25 07:14 O2 Flow Rate 3 07/04/25 01:40 BMI result Body Mass Index 28.0 Const: General: no acute distress Nutritional Appearance: well nourished Orientation/consciousness: patient oriented x3 Resp: Effort & Inspection: normal respiratory effort Skin: Other: Warm, dry, no rash Neuro: General: patient oriented x3 Extrem: Other: Dressings changed to left hip. Some bloody discharge on gauze but no evidence of active bleeding at this time. Wounds dressed with Surgicel followed by fluff gauze, ABD and Elastoplast tape. Patient tolerated the dressing change well. Objective Data Active Medications Albuterol Sulfate (Albuterol Sulfate 90 Mcg 8 Gm Inhaler) 2 puff INHALE RQ6H PRN PRN Reason: shortness of breath or wheezing Doxazosin Mesylate (Doxazosin Mesylate 2 Mg Tablet) 4 mg PO BEDTIME [facility]; Protocol Last Admin: 07/05/25 21:34 Dose: 4 mg Documented By: LISA Finasteride (Finasteride 5 Mg Tablet) 5 mg PO DAILY [facility] Last Admin: 07/05/25 07:20 Dose: 5 mg Documented By: MICHELLE Hydromorphone HCl (Hydromorphone Hcl 0.5 Mg/0.5 Ml Syringe) 0.5 mg IVPUSH Q3H PRN; Protocol PRN Reason: Pain, Severe (Pain Scale 7-10) Last Admin: 07/06/25 05:05 Dose: 0.5 mg Documented By: LISA Acetaminophen (Ofirmev) 1,000 mg in 100 mls @ 400 mls/hr IV Q6H PRN PRN Reason: Pain, Mild (Pain Scale 1-3) Last Infusion: 07/03/25 22:55 Dose: Infused Documented By: JUDY Metoprolol Tartrate (Metoprolol Tartrate 25 Mg Tablet) 25 mg PO BID [facility]; Protocol Last Admin: 07/05/25 21:33 Dose: 25 mg Documented By: LISA Pt Own (Rosuvastatin (40 Mg Tablet)) 40 mg PO DAILY [facility] Last Admin: 07/05/25 14:04 Dose: 40 mg Documented By: MICHELLE Ondansetron HCl (Ondansetron Hcl 4 Mg/2 Ml Vial) 4 mg IVPUSH QID PRN PRN Reason: Nausea Warfarin Sodium (Warfarin Sodium 5 Mg Tablet) 5 mg PO DAILY@1800 [facility] Last Admin: 07/05/25 17:39 Dose: 5 mg Documented By: MICHELLE Labs 07/05/25 06:16 06/30/25 00:20 Labs: Laboratory Results - last 24 hr 07/03/25 07/05/25 07/06/25 08:41 07:21 06:16 PT 15.2 H 14.2 H INR 1.3 H 1.2 H Crossmatch See Detail Procedures Date of Service Date of Service: 07/06/25 Progress Note: A&P Assessment and plan (1) S/P evacuation of hematoma: Status: Acute (2) Hematoma: Status: Acute Plan Overall the patient is improved and does seem to be a tolerating his Coumadin, all be a single dose. There is some bloody discharge noted on dressing but upon dressing change no active bleeding was identified. Dressings were placed using Surgicel. We will continue to monitor. Patient will discuss further Coumadin with Dr. Camargo. Time Spent With Patient Time: Total time managing care of this patient today ____ minutes. Quality Stroke Does the patient have a stroke diagnosis?: No VTE Prior VTE?: No VTE Risk Level:: Surgical - moderate VTE Device Contraindication: N/A - Device Ordered VTE Drug Contraindication: N/A - Med Ordered
[2025-07-06 07:48] LABS: Hematocrit 20.9 % (42.0-52.0); Hemoglobin 7.0 g/dl (14.0-18.0)
[2025-07-06 08:51] LABS: Platelet Count 138 X10*3/uL (160-400); White Blood Count 6.2 X10*3/uL (4.8-10.8)
[2025-07-06] MEDS: PT OWN (Rosuvastatin 40 mg tablet) 40 EACH PO (10:26)
--- NOTE | 2025-07-06 15:08 | MHC.CM.PN ---
EMR REVEIWED, PT W/LEFT THIGH HEMATOMA S/P DRAINAGE, PER SURGICAL PT DID HAVE BLOODY DRAINAGE THIS AM, HAD COUMADIN LAST NIGHT, PT WOULD LIKE TO DISCUSS STOPPING COUMADIN W/CAPTAIN ROOM SERVICE, CM WILL CONT TO FOLLOW DC NEEDS.
[2025-07-07] VITALS (10 sets, daily range): BP systolic 117–148; BP diastolic 55–71; PULSE 75–87; RESP 16–24; TEMP 36.4–37.3; O2SAT 94–99
--- NOTE | 2025-07-07 06:54 | P.PNGS_ITS ---
Subjective Subjective Date of Service: 07/07/25 Interval history: Pt is feeling better today. Pt is tolerating his liquid diet and was ambulatory. He feels much more confident in his healing now that his Coumadin has been stopped. He denies any fevers, chills, nausea. The external dressing does not show any signs of bleeding. I opened the inferior border of the dressing and did not see and trickling bloods as I did yesterday. The gauze in the wound does not appear to be saturated with blood. Physical Exam 2 Vital Signs: Vital Signs: Last Vital Signs Temp 97.6 F 07/07/25 03:06 Pulse 75 07/07/25 03:06 Resp 18 07/07/25 03:06 BP 137/71 07/07/25 03:06 Pulse Ox 99 07/07/25 03:06 O2 Del Method Room Air 07/07/25 03:06 O2 Flow Rate 3 07/04/25 01:40 BMI result Body Mass Index 28.0 Objective Data Active Medications Albuterol Sulfate (Albuterol Sulfate 90 Mcg 8 Gm Inhaler) 2 puff INHALE RQ6H PRN PRN Reason: shortness of breath or wheezing Doxazosin Mesylate (Doxazosin Mesylate 2 Mg Tablet) 4 mg PO BEDTIME [facility]; Protocol Last Admin: 07/06/25 21:21 Dose: 4 mg Documented By: JANNETH Finasteride (Finasteride 5 Mg Tablet) 5 mg PO DAILY [facility] Last Admin: 07/06/25 10:28 Dose: 5 mg Documented By: JEFF Hydromorphone HCl (Hydromorphone Hcl 0.5 Mg/0.5 Ml Syringe) 0.5 mg IVPUSH Q3H PRN; Protocol PRN Reason: Pain, Severe (Pain Scale 7-10) Last Admin: 07/07/25 06:26 Dose: 0.5 mg Documented By: DANA Acetaminophen (Ofirmev) 1,000 mg in 100 mls @ 400 mls/hr IV Q6H PRN PRN Reason: Pain, Mild (Pain Scale 1-3) Last Infusion: 07/03/25 22:55 Dose: Infused Documented By: INGE-CASEY Metoprolol Tartrate (Metoprolol Tartrate 25 Mg Tablet) 25 mg PO BID [facility]; Protocol Last Admin: 07/06/25 21:23 Dose: 25 mg Documented By: JANNETH Pt Own (Rosuvastatin (40 Mg Tablet)) 40 mg PO DAILY [facility] Last Admin: 07/06/25 10:26 Dose: 40 mg Documented By: JEFF Ondansetron HCl (Ondansetron Hcl 4 Mg/2 Ml Vial) 4 mg IVPUSH QID PRN PRN Reason: Nausea Warfarin Sodium (Warfarin Sodium 5 Mg Tablet) 5 mg PO DAILY@1800 [facility] On Hold: 07/06/25 18:42 Last Admin: 07/06/25 18:36 Dose: Not Given Documented By: ESAU Non-Admin Reason: med on hold per Labs 07/06/25 06:16 06/30/25 00:20 Labs: Laboratory Results - last 24 hr 07/06/25 07/07/25 06:16 06:20 MCV 92.9 MCH 31.1 MCHC 33.5 RDW 21.9 H Plt Count 138 L MPV 11.3 Absolute Nucleated RBC 0.030 H Nucleated RBC % (auto) 0.5 H Hold Purple Top SEE NOTE PT 14.2 H INR 1.2 H Procedures Date of Service Date of Service: 07/07/25 Progress Note: A&P Time Spent With Patient Time: Total time managing care of this patient today ____ minutes. Quality Stroke Does the patient have a stroke diagnosis?: No VTE Prior VTE?: No VTE Risk Level:: Surgical - moderate VTE Device Contraindication: N/A - Device Ordered VTE Drug Contraindication: N/A - Med Ordered
[2025-07-07 06:58] LABS: INTERNATIONAL NORM RATIO 1.3 (0.9-1.1); Prothrombin Time 14.5 SEC (10.9-12.4)
--- NOTE | 2025-07-07 06:58 | PM.PNGS ---
Subjective Subjective Date of Service: 07/07/25 <Tasha Aleksandermateo - Last Filed: 07/07/25 07:08> 07/07/25 <Ahmet Lucas PA-C - Last Filed: 07/07/25 10:59> Interval history: Pt is feeling better today. He is feeling more confident in his wound healing now that Coumadin has been stopped. HE was in pain last night and received Dilaudid three times. He denies any pain currently, nausea, vomiting, fevers, or chills. Pt is tolerating liquid diet and was ambulatory. The external dressing does not show any signs of bleeding through. opened the inferior border of the dressing and did not see and trickling bloods as I did yesterday. The gauze in the wound does not appear to be saturated with blood. <Tasha Armijomateo - Last Filed: 07/07/25 07:08> Physical Exam Vital Signs: Vital Signs: Last Vital Signs Temp 97.6 F 07/07/25 03:06 Pulse 75 07/07/25 03:06 Resp 18 07/07/25 03:06 BP 137/71 07/07/25 03:06 Pulse Ox 99 07/07/25 03:06 O2 Del Method Room Air 07/07/25 03:06 O2 Flow Rate 3 07/04/25 01:40 BMI result Body Mass Index 28.0 <Tasha Armijomateo - Last Filed: 07/07/25 07:08> Objective Data Active Medications Albuterol Sulfate (Albuterol Sulfate 90 Mcg 8 Gm Inhaler) 2 puff INHALE RQ6H PRN PRN Reason: shortness of breath or wheezing Doxazosin Mesylate (Doxazosin Mesylate 2 Mg Tablet) 4 mg PO BEDTIME [facility]; Protocol Last Admin: 07/06/25 21:21 Dose: 4 mg Documented By: JANNETH Finasteride (Finasteride 5 Mg Tablet) 5 mg PO DAILY [facility] Last Admin: 07/06/25 10:28 Dose: 5 mg Documented By: JEFF Hydromorphone HCl (Hydromorphone Hcl 0.5 Mg/0.5 Ml Syringe) 0.5 mg IVPUSH Q3H PRN; Protocol PRN Reason: Pain, Severe (Pain Scale 7-10) Last Admin: 07/07/25 06:26 Dose: 0.5 mg Documented By: DANA Acetaminophen (Ofirmev) 1,000 mg in 100 mls @ 400 mls/hr IV Q6H PRN PRN Reason: Pain, Mild (Pain Scale 1-3) Last Infusion: 07/03/25 22:55 Dose: Infused Documented By: JUDY Metoprolol Tartrate (Metoprolol Tartrate 25 Mg Tablet) 25 mg PO BID [facility]; Protocol Last Admin: 07/06/25 21:23 Dose: 25 mg Documented By: JANNETH Pt Own (Rosuvastatin (40 Mg Tablet)) 40 mg PO DAILY [facility] Last Admin: 07/06/25 10:26 Dose: 40 mg Documented By: JEFF Ondansetron HCl (Ondansetron Hcl 4 Mg/2 Ml Vial) 4 mg IVPUSH QID PRN PRN Reason: Nausea Warfarin Sodium (Warfarin Sodium 5 Mg Tablet) 5 mg PO DAILY@1800 [facility] On Hold: 07/06/25 18:42 Last Admin: 07/06/25 18:36 Dose: Not Given Documented By: ESAU Non-Admin Reason: med on hold per <Tasha Torres - Last Filed: 07/07/25 07:08> Labs CBC & Chem 7: 07/06/25 06:16 06/30/25 00:20 <Tasha Torres - Last Filed: 07/07/25 07:08> Labs: Laboratory Results - last 24 hr 07/06/25 07/07/25 06:16 06:20 MCV 92.9 MCH 31.1 MCHC 33.5 RDW 21.9 H Plt Count 138 L MPV 11.3 Absolute Nucleated RBC 0.030 H Nucleated RBC % (auto) 0.5 H Hold Purple Top SEE NOTE PT 14.2 H INR 1.2 H <Tasha Torres - Last Filed: 07/07/25 07:08> Procedures Date of Service Date of Service: 07/07/25 <Tasha Torres - Last Filed: 07/07/25 07:08> 07/07/25 <Ahmet Lucas PA-C - Last Filed: 07/07/25 10:59> Progress Note: A&P Assessment and plan (1) S/P evacuation of hematoma: Status: Acute <Tasha Torres - Last Filed: 07/07/25 07:08> (2) Current use of anticoagulant therapy: Status: Acute <Tasha Torres - Last Filed: 07/07/25 07:08> Assessment and Plan: 89 yo male with PMH of mechanical AVR on coumadin, HTN, and acute anemia due to post surgical bleeding requiring 2x transfusions, s/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 He reported pain last night and received Dilaudid but is doing better now. Pt feels more confident in his care plan now. Wound is not currently bleeding and shows signs of hemostasis Cardiology follow up scheduled for today (per nurse report) Continue to hold Coumadin Continue diet as tolerated Continue to ambulate <Tasha Torres - Last Filed: 07/07/25 07:08> 89 yo male with PMH of mechanical AVR on coumadin, HTN, and acute anemia due to post surgical bleeding requiring 2x transfusions, s/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 He reported pain last night and received Dilaudid but is doing better now. Pt feels more confident in his care plan now. Wound is not currently bleeding and shows signs of hemostasis Cardiology follow up scheduled for today (per nurse report) Continue to hold Coumadin Continue diet as tolerated Continue to ambulate patient seen and examined independently. I agree with the above assessment, upon taking down the dressing this morning there was no evidence of active bleed were oozing. Wound was redressed, we will resume warfarin this evening. Cardiology input appreciated. Continue with daily wound care. A.m. INR 1.3 <Ahmet Lucas PA-C - Last Filed: 07/07/25 10:59> Time Spent With Patient Time: Total time managing care of this patient today ____ minutes. <Tasha Torres - Last Filed: 07/07/25 07:08> Quality Stroke Does the patient have a stroke diagnosis?: No <Tasha Torres - Last Filed: 07/07/25 07:08> VTE Prior VTE?: No <Tasha Torres - Last Filed: 07/07/25 07:08> VTE Risk Level:: Surgical - moderate <Tasha Torres - Last Filed: 07/07/25 07:08> VTE Device Contraindication: N/A - Device Ordered <Tsaha Torres - Last Filed: 07/07/25 07:08> VTE Drug Contraindication: N/A - Med Ordered <Tasha Torres - Last Filed: 07/07/25 07:08>
--- NOTE | 2025-07-07 07:53 | PM.PNGS ---
Subjective Subjective Date of Service: 07/07/25 Interval history: Patient had a good night, reports no significant pain this morning. No evidence of bleeding overnight. Had a large bowel movement today. Physical Exam Vital Signs: Vital Signs: Last Vital Signs Temp 98.2 F 07/07/25 07:04 Pulse 86 07/07/25 07:04 Resp 20 07/07/25 07:04 BP 148/68 H 07/07/25 07:04 Pulse Ox 95 07/07/25 07:04 O2 Del Method Room Air 07/07/25 07:04 O2 Flow Rate 3 07/04/25 01:40 BMI result Body Mass Index 28.0 Const: General: no acute distress Nutritional Appearance: well nourished Orientation/consciousness: patient oriented x3 Limitations: ambulation with walker Resp: Effort & Inspection: normal respiratory effort Neuro: General: patient oriented x3 Extrem: Other: Dressings changed to left leg. No evidence of active bleeding. Good granulation tissue at wound base. Wounds repacked with Xeroform followed by fluff gauze wet-to-dry, ABD and Elastoplast Objective Data Active Medications Albuterol Sulfate (Albuterol Sulfate 90 Mcg 8 Gm Inhaler) 2 puff INHALE RQ6H PRN PRN Reason: shortness of breath or wheezing Doxazosin Mesylate (Doxazosin Mesylate 2 Mg Tablet) 4 mg PO BEDTIME [facility]; Protocol Last Admin: 07/06/25 21:21 Dose: 4 mg Documented By: JANNETH Finasteride (Finasteride 5 Mg Tablet) 5 mg PO DAILY [facility] Last Admin: 07/06/25 10:28 Dose: 5 mg Documented By: JEFF Hydromorphone HCl (Hydromorphone Hcl 0.5 Mg/0.5 Ml Syringe) 0.5 mg IVPUSH Q3H PRN; Protocol PRN Reason: Pain, Severe (Pain Scale 7-10) Last Admin: 07/07/25 06:26 Dose: 0.5 mg Documented By: DANA Acetaminophen (Ofirmev) 1,000 mg in 100 mls @ 400 mls/hr IV Q6H PRN PRN Reason: Pain, Mild (Pain Scale 1-3) Last Infusion: 07/03/25 22:55 Dose: Infused Documented By: INGE-CASEY Metoprolol Tartrate (Metoprolol Tartrate 25 Mg Tablet) 25 mg PO BID [facility]; Protocol Last Admin: 07/06/25 21:23 Dose: 25 mg Documented By: JANNETH Pt Own (Rosuvastatin (40 Mg Tablet)) 40 mg PO DAILY [facility] Last Admin: 07/06/25 10:26 Dose: 40 mg Documented By: JEFF Ondansetron HCl (Ondansetron Hcl 4 Mg/2 Ml Vial) 4 mg IVPUSH QID PRN PRN Reason: Nausea Warfarin Sodium (Warfarin Sodium 4 Mg Tablet) 4 mg PO DAILY@1800 [facility] Labs 07/06/25 06:16 06/30/25 00:20 Labs: Laboratory Results - last 24 hr 07/06/25 07/07/25 06:16 06:20 Plt Count 138 L MPV 11.3 Hold Purple Top SEE NOTE PT 14.5 H INR 1.3 H Procedures Date of Service Date of Service: 07/07/25 Progress Note: A&P Assessment and plan (1) S/P evacuation of hematoma: Status: Acute (2) Hematoma: Status: Acute Plan Patient continues to improve wounds are clean and healing. No evidence of active bleeding. We will restart Coumadin today at 4 mg daily per patient request. Anticipate discharge in 2-3 days with [facility] wound care. Time Spent With Patient Time: Total time managing care of this patient today ____ minutes. Quality Stroke Does the patient have a stroke diagnosis?: No VTE Prior VTE?: No VTE Risk Level:: Surgical - moderate VTE Device Contraindication: N/A - Device Ordered VTE Drug Contraindication: N/A - Med Ordered
[2025-07-07] MEDS: PT OWN (Rosuvastatin 40 mg tablet) 40 EACH PO (09:15)
--- NOTE | 2025-07-07 10:19 | PM.PNCARD ---
Subjective Subjective Date of Service: 07/07/25 Interval history: He states he feels well. No further bleeding from surgical site according to patient. No cardiac symptoms or complaints. Review of Systems Review of Systems Yes all other systems are reviewed and are negative Constitutional: Reports as per HPI and Reports no additional constitutional complaints Eyes: Reports as per HPI and Denies no additional eye complaints Denies system reviewed and no additional complaints, except as documented and Reports as per HPI Cardiovascular: Reports as per HPI, Reports no additional cardiovascular complaints, Denies acrocyanosis, Denies cool extremities, Denies chest pain, Denies leg edema, Denies lightheadedness, Denies palpitations and Denies dyspnea Respiratory: Reports as per HPI, Denies no additional respiratory complaints and Denies dyspnea Gastrointestinal: Reports as per HPI and Denies no additional gastrointestinal complaints Genitourinary: Reports no additional male genitourinary complaints and Reports as per HPI Musculoskeletal: Reports no additional musculoskeletal complaints and Reports as per HPI Skin/Breast: Reports system reviewed and no additional complaints, except as docu Reports system reviewed and no additional complaints, except as documented and Reports as per HPI Psychiatric: Reports no additional psychiatric complaints and Reports as per HPI Endocrine: Reports no additional endocrine complaints, Reports as per HPI and Denies palpitations Hematologic/Lymphatic: Reports no additional hematologic/lymphatic complaints and Reports as per HPI Allergic/Immunologic: Reports no additional allergic/immunologic complaints and Reports as per HPI Physical Exam Vital Signs: Last Vital Signs Temp 98.2 F 07/07/25 07:04 Pulse 86 07/07/25 09:15 Resp 20 07/07/25 07:04 BP 148/68 H 07/07/25 07:04 Pulse Ox 95 07/07/25 07:04 O2 Del Method Room Air 07/07/25 07:04 O2 Flow Rate 3 07/04/25 01:40 BMI result Body Mass Index 28.0 Const General: comfortable and no acute distress Orientation/consciousness: patient oriented x3 HEENT Other: Unremarkable Head: Yes normal to inspection Neck Neck: Yes normal visual inspection Chest Chest palpation & inspection: normal inspection of the chest Resp Auscultation: clear to auscultation bilaterally Cardio Other: Mechanical heart valve sounds noted. GI Palpation (GI): Soft to palpation Back/Spine/Pelvis Other: unremarkable Skin General skin exam: no rashes or lesions noted Neuro General: patient oriented x3 Extrem General: Yes normal to inspection Psych Mental Status: mental status grossly normal Objective Labs and Meds 07/06/25 06:16 06/30/25 00:20 Lab results: Laboratory Results - last 24 hr 07/07/25 06:20 Hold Purple Top SEE NOTE PT 14.5 H INR 1.3 H Progress Note: A&P Assessment and plan (1) H/O mechanical aortic valve replacement: Status: Acute (2) Postoperative anemia due to acute blood loss: Status: Acute (3) Hematoma: Status: Acute (4) Paroxysmal atrial fibrillation: Status: Acute Plan Echocardiogram from January 2025-LVEF 55-60%. Normally functioning mechanical aortic prosthesis. Complicated patient with mechanical aortic valve replacement from 25 years ago and atrial fibrillation who has had recurrent postsurgical bleeding at the site of hip hematoma. However, after the most recent surgery he has indeed been tolerating Coumadin without any recurring bleed. Hence we can gradually get him back to therapeutic INR and hopefully avoid Lovenox unless the INR remains subtherapeutic for an extended period. There is a risk of recurrent bleed versus thromboembolic complications from the valve and atrial fibrillation but hopefully we can avoid that. Time Spent With Patient Time: Total time managing care of this patient today ____ minutes. Progress Note: Quality Stroke Does the patient have a stroke diagnosis?: No Procedures Date of Service Date of Service: 07/07/25
[2025-07-08 03:31] VITALS: BP 142/63; PULSE 73; RESP 16; TEMP 36.5; O2SAT 96
[2025-07-08 07:01] VITALS: BP 150/70; PULSE 78; RESP 18; TEMP 36.3; O2SAT 98
[2025-07-08 07:07] LABS: INTERNATIONAL NORM RATIO 1.2 (0.9-1.1); Prothrombin Time 13.3 SEC (10.9-12.4)
--- NOTE | 2025-07-08 07:43 | PM.PNGS ---
Subjective Subjective Date of Service: 07/08/25 <Tasha Armijomateo - Last Filed: 07/08/25 07:51> 07/08/25 <Paddy Kendall MD - Last Filed: 07/08/25 09:00> Interval history: Pt reports pain overnight and received pain medication. This morning he reports pain but denies any fevers, nausea, chills, or SOB. He also reports muscle twitches around the same time he starts feeling pain. Pt was restarted on Coumadin last night. I palpated around the wound which did not elicit any pain. I examined the dressing externally and did not see any signs of bleeding. I told the patient we would come back and take off the dressing to check the wound in order to avoid him being in pain more than once. <Tasha Aleksandermateo - Last Filed: 07/08/25 07:51> Physical Exam Vital Signs: Vital Signs: Last Vital Signs Temp 97.4 F 07/08/25 07:01 Pulse 78 07/08/25 07:01 Resp 18 07/08/25 07:01 BP 150/70 H 07/08/25 07:01 Pulse Ox 98 07/08/25 07:01 O2 Del Method Room Air 07/08/25 07:01 O2 Flow Rate 3 07/04/25 01:40 BMI result Body Mass Index 28.0 <Tasha Johnsonmarii - Last Filed: 07/08/25 07:51> Objective Data Active Medications Albuterol Sulfate (Albuterol Sulfate 90 Mcg 8 Gm Inhaler) 2 puff INHALE RQ6H PRN PRN Reason: shortness of breath or wheezing Doxazosin Mesylate (Doxazosin Mesylate 2 Mg Tablet) 4 mg PO BEDTIME [facility]; Protocol Last Admin: 07/07/25 22:14 Dose: 4 mg Documented By: DAVONTE Finasteride (Finasteride 5 Mg Tablet) 5 mg PO DAILY [facility] Last Admin: 07/08/25 07:07 Dose: 5 mg Documented By: SHO Hydromorphone HCl (Hydromorphone Hcl 0.5 Mg/0.5 Ml Syringe) 0.5 mg IVPUSH Q3H PRN; Protocol PRN Reason: Pain, Severe (Pain Scale 7-10) Last Admin: 07/08/25 07:07 Dose: 0.5 mg Documented By: SHO Acetaminophen (Ofirmev) 1,000 mg in 100 mls @ 400 mls/hr IV Q6H PRN PRN Reason: Pain, Mild (Pain Scale 1-3) Last Infusion: 07/03/25 22:55 Dose: Infused Documented By: JUDY Metoprolol Tartrate (Metoprolol Tartrate 25 Mg Tablet) 25 mg PO BID [facility]; Protocol Last Admin: 07/08/25 07:07 Dose: 25 mg Documented By: SHO Pt Own (Rosuvastatin (40 Mg Tablet)) 40 mg PO DAILY [facility] Last Admin: 07/07/25 09:15 Dose: 40 mg Documented By: SHO Ondansetron HCl (Ondansetron Hcl 4 Mg/2 Ml Vial) 4 mg IVPUSH QID PRN PRN Reason: Nausea Warfarin Sodium (Warfarin Sodium 4 Mg Tablet) 4 mg PO DAILY@1800 [facility] Last Admin: 07/07/25 18:03 Dose: 4 mg Documented By: SHO <Tasha Torres - Last Filed: 07/08/25 07:51> Labs CBC & Chem 7: 07/08/25 06:35 06/30/25 00:20 <Tasha Torres - Last Filed: 07/08/25 07:51> Labs: Laboratory Results - last 24 hr 07/08/25 06:35 Hold Purple Top SEE NOTE PT 13.3 H INR 1.2 H <Tasha Torres - Last Filed: 07/08/25 07:51> Procedures Date of Service Date of Service: 07/08/25 <Tasha Torres - Last Filed: 07/08/25 07:51> 07/08/25 <Paddy Kendall MD - Last Filed: 07/08/25 09:00> Progress Note: A&P Assessment and plan (1) Postoperative anemia due to acute blood loss: Status: Acute <Tasha Torres - Last Filed: 07/08/25 07:51> (2) Hematoma: Status: Acute <Tasha Torres - Last Filed: 07/08/25 07:51> (3) S/P evacuation of hematoma: Status: Acute <Tasha Torres - Last Filed: 07/08/25 07:51> Assessment and Plan: 89 yo male with PMH of mechanical AVR on coumadin, HTN, and acute anemia due to post surgical bleeding requiring 2x transfusions, s/p excision of chronic hematoma of L thigh earlier this week and recurrent hematoma of L thigh POD # 4, doing well this morning. He reported pain last night and received Dilaudid. Externally there are no signs of bleeding. Continue diet as tolerated Continue to ambulate <Tasha Torres - Last Filed: 07/08/25 07:51> 89 yo male with PMH of mechanical AVR on coumadin, HTN, and acute anemia due to post surgical bleeding requiring 2x transfusions, s/p excision of chronic hematoma of L thigh earlier this week and recurrent hematoma of L thigh POD # 4, doing well this morning. He reported pain last night and received Dilaudid. Externally there are no signs of bleeding. Continue diet as tolerated Continue to ambulate Agree with the above assessment and plan. Patient H&H remained stable with a hemoglobin of 7. We will recheck in a.m. Dressings changed. No evidence of active bleeding. The patient tolerated dressing change well. Continue daily dressing changes with Xeroform followed by wet-to-dry fluff gauze and ABD pad, Elastoplast. Continue Coumadin <Paddy Kendall MD - Last Filed: 07/08/25 09:00> Time Spent With Patient Time: Total time managing care of this patient today ____ minutes. <Tasha Torres - Last Filed: 07/08/25 07:51> Quality Stroke Does the patient have a stroke diagnosis?: No <Tasha Torres - Last Filed: 07/08/25 07:51> VTE Prior VTE?: No <Tasha Torres - Last Filed: 07/08/25 07:51> VTE Risk Level:: Surgical - moderate <Tasha Torres - Last Filed: 07/08/25 07:51> VTE Device Contraindication: N/A - Device Ordered <Tasha Torres - Last Filed: 07/08/25 07:51> VTE Drug Contraindication: N/A - Med Ordered <Tasha Torres - Last Filed: 07/08/25 07:51>
[2025-07-08 08:00] LABS: Hematocrit 21.4 % (42.0-52.0); Mean Corpuscular HGB Conc 32.7 g/dl (31.0-36.0); Mean Corpuscular Hemoglobin 31.1 pg (27.0-33.0); Mean Corpuscular Volume 95.1 fL (80.0-98.0); NRBC Abs Auto 0.040 X10*3/uL (0.0-0.012); NRBC Pct Auto 0.8 /100WBC (0.0-0.2); Platelet Count 171 X10*3/uL (160-400); Red Blood Count 2.25 X10*6/uL (4.60-5.80); White Blood Count 5.0 X10*3/uL (4.8-10.8)
[2025-07-08 08:16] LABS: Hemoglobin 7.0 g/dl (14.0-18.0)
[2025-07-08] MEDS: PT OWN (Rosuvastatin 40 mg tablet) 40 EACH PO (09:10)
[2025-07-08 11:08] VITALS: BP 136/60; PULSE 93; RESP 18; TEMP 37.2; O2SAT 97
--- NOTE | 2025-07-08 11:40 | MHC.CM.PN ---
EMR REVIEWED, PT W/L THIGH HEMATOMA S/P DRAINAGE, PER SURGICAL NOTE PT C/O PAIN, PT ON COUMADIN HMG 7.O AND WILL BE RECHECKED IN AM, POSSIBLE DC OVER W/E, REF TO [facility] FOR SN D/T POSSIBLE NEED FOR WOUND CARE, CM WILL CON TO FOLLOW DC NEEDS.
[2025-07-08 15:01] VITALS: BP 161/72; PULSE 88; RESP 18; TEMP 36.6; O2SAT 98
[2025-07-08 19:30] VITALS: BP 156/68; PULSE 87; RESP 18; TEMP 36.7; O2SAT 96
[2025-07-08 23:44] VITALS: BP 144/68; PULSE 70; RESP 16; TEMP 36.8; O2SAT 95
[2025-07-09] VITALS (7 sets, daily range): BP systolic 123–165; BP diastolic 56–73; PULSE 56–92; RESP 16–20; TEMP 36.6–37; O2SAT 96–100
[2025-07-09 07:06] LABS: INTERNATIONAL NORM RATIO 1.2 (0.9-1.1); Prothrombin Time 13.9 SEC (10.9-12.4)
[2025-07-09] MEDS: PT OWN (Rosuvastatin 40 mg tablet) 40 EACH PO (10:11)
--- NOTE | 2025-07-09 10:17 | P.PNGS_ITS ---
Subjective Subjective Date of Service: 07/09/25 Interval history: Patient denies any new complaints Feels well overall all and says he is comfortable No reported bleeding in the wound On anticoagulation Physical Exam 2 Vital Signs: Vital Signs: Last Vital Signs Temp 98.6 F 07/09/25 06:56 Pulse 92 07/09/25 10:11 Resp 18 07/09/25 06:56 BP 152/70 H 07/09/25 10:11 Pulse Ox 100 07/09/25 06:56 O2 Del Method Room Air 07/09/25 06:56 O2 Flow Rate 3 07/04/25 01:40 BMI result Body Mass Index 28.0 Const: General: comfortable, no acute distress and alert Resp: Effort & Inspection: normal respiratory effort Cardio: Other: Irregular rhythm GI: Palpation (GI): Soft to palpation Back/Spine/Pelvis: Other: Dressings removed - wound looks clean, no signs of any bleeding, no pus Objective Data Active Medications Albuterol Sulfate (Albuterol Sulfate 90 Mcg 8 Gm Inhaler) 2 puff INHALE RQ6H PRN PRN Reason: shortness of breath or wheezing Doxazosin Mesylate (Doxazosin Mesylate 2 Mg Tablet) 4 mg PO BEDTIME [facility]; Protocol Last Admin: 07/08/25 20:09 Dose: 4 mg Documented By: CEZAR Finasteride (Finasteride 5 Mg Tablet) 5 mg PO DAILY [facility] Last Admin: 07/09/25 10:11 Dose: 5 mg Documented By: ESAU Hydromorphone HCl (Hydromorphone Hcl 0.5 Mg/0.5 Ml Syringe) 0.5 mg IVPUSH Q3H PRN; Protocol PRN Reason: Pain, Severe (Pain Scale 7-10) Last Admin: 07/08/25 21:57 Dose: 0.5 mg Documented By: CEZAR Acetaminophen (Ofirmev) 1,000 mg in 100 mls @ 400 mls/hr IV Q6H PRN PRN Reason: Pain, Mild (Pain Scale 1-3) Last Infusion: 07/03/25 22:55 Dose: Infused Documented By: INGE-CASEY Metoprolol Tartrate (Metoprolol Tartrate 25 Mg Tablet) 25 mg PO BID [facility]; Protocol Last Admin: 07/09/25 10:11 Dose: 25 mg Documented By: ESAU Pt Own (Rosuvastatin (40 Mg Tablet)) 40 mg PO DAILY [facility] Last Admin: 07/09/25 10:11 Dose: 40 mg Documented By: ESAU Ondansetron HCl (Ondansetron Hcl 4 Mg/2 Ml Vial) 4 mg IVPUSH QID PRN PRN Reason: Nausea Warfarin Sodium (Warfarin Sodium 4 Mg Tablet) 4 mg PO DAILY@1800 [facility] Last Admin: 07/08/25 17:54 Dose: 4 mg Documented By: SHO Labs 07/08/25 06:35 06/30/25 00:20 Labs: Laboratory Results - last 24 hr 07/09/25 06:02 Hold Purple Top SEE NOTE PT 13.9 H INR 1.2 H Procedures Date of Service Date of Service: 07/09/25 Progress Note: A&P Assessment and plan (1) S/P evacuation of hematoma: Status: Acute Assessment and Plan: Dressings changed Wound looks clean No signs of any bleeding or fresh hematoma I reapplied Xeroform dressings on surface of the wound and wet-to-dry Less staple used because of skin irritation Doing well overall Time Spent With Patient Time: Total time managing care of this patient today ____ minutes. Quality Stroke Does the patient have a stroke diagnosis?: No VTE Prior VTE?: No VTE Risk Level:: Surgical - moderate VTE Device Contraindication: N/A - Device Ordered VTE Drug Contraindication: N/A - Med Ordered
--- NOTE | 2025-07-09 18:55 | PC.NURSE ---
patient resting ,has no complaints
[2025-07-10 03:09] VITALS: BP 131/66; PULSE 75; RESP 20; TEMP 36.4; O2SAT 97
[2025-07-10 07:09] VITALS: BP 148/66; PULSE 62; RESP 18; TEMP 36.9; O2SAT 98
[2025-07-10 07:22] LABS: INTERNATIONAL NORM RATIO 1.2 (0.9-1.1); Prothrombin Time 14.1 SEC (10.9-12.4)
[2025-07-10] MEDS: PT OWN (Rosuvastatin 40 mg tablet) 40 EACH PO (08:46)
--- NOTE | 2025-07-10 10:50 | P.PNGS_ITS ---
Subjective Subjective Date of Service: 07/10/25 Interval history: He denies any new complaints He feels well overall No events reported Physical Exam 2 Vital Signs: Vital Signs: Last Vital Signs Temp 98.4 F 07/10/25 07:09 Pulse 62 07/10/25 07:09 Resp 18 07/10/25 07:09 BP 148/66 H 07/10/25 07:09 Pulse Ox 98 07/10/25 07:09 O2 Del Method Room Air 07/10/25 07:09 O2 Flow Rate 3 07/04/25 01:40 BMI result Body Mass Index 28.0 Const: General: comfortable and no acute distress Resp: Effort & Inspection: normal respiratory effort Cardio: Rate: regular rate Back/Spine/Pelvis: Other: Left hip open wound clean, no active bleeding, some superficial skin breakdown from the tape, no cellulitis Objective Data Active Medications Albuterol Sulfate (Albuterol Sulfate 90 Mcg 8 Gm Inhaler) 2 puff INHALE RQ6H PRN PRN Reason: shortness of breath or wheezing Doxazosin Mesylate (Doxazosin Mesylate 2 Mg Tablet) 4 mg PO BEDTIME [facility]; Protocol Last Admin: 07/09/25 21:22 Dose: 4 mg Documented By: LORETO Finasteride (Finasteride 5 Mg Tablet) 5 mg PO DAILY [facility] Last Admin: 07/10/25 08:46 Dose: 5 mg Documented By: JEVON Hydromorphone HCl (Hydromorphone Hcl 0.5 Mg/0.5 Ml Syringe) 0.5 mg IVPUSH Q3H PRN; Protocol PRN Reason: Pain, Severe (Pain Scale 7-10) Last Admin: 07/10/25 02:31 Dose: 0.5 mg Documented By: LORETO Metoprolol Tartrate (Metoprolol Tartrate 25 Mg Tablet) 25 mg PO BID [facility]; Protocol Last Admin: 07/10/25 08:46 Dose: 25 mg Documented By: JEVON Pt Own (Rosuvastatin (40 Mg Tablet)) 40 mg PO DAILY [facility] Last Admin: 07/10/25 08:46 Dose: 40 mg Documented By: JEVON Ondansetron HCl (Ondansetron Hcl 4 Mg/2 Ml Vial) 4 mg IVPUSH QID PRN PRN Reason: Nausea Warfarin Sodium (Warfarin Sodium 4 Mg Tablet) 4 mg PO DAILY@1800 [facility] Last Admin: 07/09/25 17:52 Dose: 4 mg Documented By: ALFA Labs 07/08/25 06:35 06/30/25 00:20 Labs: Laboratory Results - last 24 hr 07/10/25 06:59 PT 14.1 H INR 1.2 H Procedures Date of Service Date of Service: 07/10/25 Progress Note: A&P Assessment and plan (1) S/P evacuation of hematoma: Status: Acute Assessment and Plan: I changed his dressings on the open wound of the left hip area The wound is clean with no active bleeding I reapplied Xeroform on the base and wet-to-dry on top Less tape used because of some superficial skin breakdown from the adhesions He should be ready to be discharged with good wound care He said he has does not want to have a visiting nurse and wants to come in to the office for dressing changes On anticoagulation Time Spent With Patient Time: Total time managing care of this patient today ____ minutes. Quality Stroke Does the patient have a stroke diagnosis?: No VTE Prior VTE?: No VTE Risk Level:: Surgical - moderate VTE Device Contraindication: N/A - Device Ordered VTE Drug Contraindication: N/A - Med Ordered
[2025-07-10 10:58] VITALS: BP 122/58; PULSE 69; RESP 18; TEMP 36.7; O2SAT 97
--- NOTE | 2025-07-10 11:58 | P.PNIM_ITS ---
Subjective Subjective Date of Service: 07/10/25 Interval History: seen and examined this morning follow up medical consultation 36 beat VT overnight; reportedly pt asymptomatic having some left hip pain at surgical site no sob, no chest pain Review of Systems Review of Systems: Yes all other systems are reviewed and are negative Constitutional Constitutional: Denies chills and Denies fever(s) Physical Exam 2 Vital Signs: Vital Signs: Last Vital Signs Temp 98.0 F 07/10/25 10:58 Pulse 69 07/10/25 10:58 Resp 18 07/10/25 10:58 BP 122/58 L 07/10/25 10:58 Pulse Ox 97 07/10/25 10:58 O2 Del Method Room Air 07/10/25 10:58 O2 Flow Rate 3 07/04/25 01:40 BMI result Body Mass Index 28.0 Const: General: cooperative, comfortable, alert and awake Nutritional Appearance: average body habitus Orientation/consciousness: patient oriented x3 Resp: Effort & Inspection: normal respiratory effort, able to speak in complete sentences, no respiratory distress and no use of accessory muscles A uscultation: clear to auscultation bilaterally Cardio: Rate: regular rate GI: Inspection: No distended Palpation (GI): Soft to palpation Skin: Other: left hip dressings clean and dry with no staining Neuro: General: patient oriented x3, moves all extremities and CN's II-XI intact bilaterally Extrem: Other: LLE chronic 2+ edema Objective Data Active Medications Albuterol Sulfate (Albuterol Sulfate 90 Mcg 8 Gm Inhaler) 2 puff INHALE RQ6H PRN PRN Reason: shortness of breath or wheezing Doxazosin Mesylate (Doxazosin Mesylate 2 Mg Tablet) 4 mg PO BEDTIME [facility]; Protocol Last Admin: 07/09/25 21:22 Dose: 4 mg Documented By: LORETO Finasteride (Finasteride 5 Mg Tablet) 5 mg PO DAILY [facility] Last Admin: 07/10/25 08:46 Dose: 5 mg Documented By: JEVON Hydromorphone HCl (Hydromorphone Hcl 0.5 Mg/0.5 Ml Syringe) 0.5 mg IVPUSH Q3H PRN; Protocol PRN Reason: Pain, Severe (Pain Scale 7-10) Last Admin: 07/10/25 02:31 Dose: 0.5 mg Documented By: LORETO Metoprolol Tartrate (Metoprolol Tartrate 25 Mg Tablet) 25 mg PO BID [facility]; Protocol Last Admin: 07/10/25 08:46 Dose: 25 mg Documented By: JEVON Pt Own (Rosuvastatin (40 Mg Tablet)) 40 mg PO DAILY [facility] Last Admin: 07/10/25 08:46 Dose: 40 mg Documented By: JEVON Ondansetron HCl (Ondansetron Hcl 4 Mg/2 Ml Vial) 4 mg IVPUSH QID PRN PRN Reason: Nausea Warfarin Sodium (Warfarin Sodium 4 Mg Tablet) 4 mg PO DAILY@1800 [facility] Last Admin: 07/09/25 17:52 Dose: 4 mg Documented By: ALFA Labs 07/10/25 12:04 06/30/25 00:20 Labs: Laboratory Results - last 24 hr 07/10/25 06:59 PT 14.1 H INR 1.2 H Assessment and Plan (1) H/O mechanical aortic valve replacement: Status: Acute (2) Hematoma: Status: Acute Plan This is a 89-year-old male with a history of mechanical aortic valve, atrial fibrillation on anticoagulation with Coumadin, hypertension, 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 who recently underwent resection of left hip mass and presented to the emergency department with bleeding found to have hematoma and acute bleeding of the surgical site status post hematoma evacuation and ligation of arterial bleeding site hospital course complicated by recurrent bleeding requiring returning to the OR 06/30, 07/02, 07/04 Acute blood loss anemia due to hematoma from left hip surgical site (initially had left hip mass removed 06/27) s/p hematoma evacuation 06/30 and repeat cauterizations on 07/02 and 07/04 due to recurrent bleeding Pt with h/o transfusion reaction (fever and urticaria per blood bank); requires premedication with Tylenol and Bendryl prior to transfusions Transfused one unit PRBCs on 07/01 and again on 07/02 H/H now stable stable Mechanical aortic valve Anticoagulation has been intermittently on hold during stay Cardiology consulted, recommend resuming Coumadin without Lovenox bridge INR has remained low for several days, discussed with pharmacy, will give 7mg coumadin today and then increase dose from 4 mg to 5 mg daily starting tomorrow due to recurrent bleeding pt does not want to do any more bridging with Lovenox. He understands risks regarding his mechanical valve follow INR daily ventricular tachycardia 36 beats overnight, pt asymptomatic on BB check lytes cardiology following chronic atrial fibrillation continue metoprolol coumadin as above Right arm pain/heaviness, numbness and tingling; resolved Sudden onset on the evening of 07/01/2025 Neuro exam reassuring, no focal deficits noted CT of head negative for acute abnormality Currently back to baseline Likely musculoskeletal due to acute intervention during rapid response for hypotension Thrombocytopenia Appears chronic but platelet count has improved to 209 BPH continue doxazosin, finasteride Hypertension BP meds placed on hold for hypotension started on BB for tachycardia lisinopril, lasix and aldactone have been on hold Monitor blood pressure closely and resume antihypertensives as necessary HLD Continue statin We will continue to follow along with you. Quality Stroke Does the patient have a stroke diagnosis?: No VTE Prior VTE?: No VTE Risk Level:: Surgical - moderate VTE Device Contraindication: N/A - Device Ordered VTE Drug Contraindication: N/A - Med Ordered
[2025-07-10 12:12] LABS: Hematocrit 24.7 % (42.0-52.0); Hemoglobin 8.1 g/dl (14.0-18.0); Mean Corpuscular HGB Conc 32.8 g/dl (31.0-36.0); Mean Corpuscular Hemoglobin 30.9 pg (27.0-33.0); Mean Corpuscular Volume 94.3 fL (80.0-98.0); NRBC Abs Auto 0.020 X10*3/uL (0.0-0.012); NRBC Pct Auto 0.3 /100WBC (0.0-0.2); Platelet Count 209 X10*3/uL (160-400); Red Blood Count 2.62 X10*6/uL (4.60-5.80); White Blood Count 5.8 X10*3/uL (4.8-10.8)
[2025-07-10 12:30] LABS: Anion Gap 13 (12-20); Blood Urea Nitrogen 21 mg/dL (9-16); Calcium 8.8 mg/dL (8.4-10.2); Carbon Dioxide 27 mmol/L (22-29); Chloride 102 mmol/L (96-108); Creatinine Clr Calc Pharmacy 120.6; Estimated Glomerular Filt Rate > 60; Magnesium 1.9 mg/dL (1.6-2.6); Potassium 4.1 mmol/L (3.3-5.1); Sodium 138 mmol/L (135-145)
--- NOTE | 2025-07-10 12:48 | P.PNCA_ITS ---
Subjective Subjective Date of Service: 07/10/25 Interval history: He is complaining of hip pain but does not have any clear cardiac symptoms. Review of Systems Review of Systems Yes all other systems are reviewed and are negative Constitutional: Reports as per HPI and Reports no additional constitutional complaints Eyes: Reports as per HPI and Denies no additional eye complaints Denies system reviewed and no additional complaints, except as documented and Reports as per HPI Cardiovascular: Reports as per HPI, Reports no additional cardiovascular complaints, Denies acrocyanosis, Denies cool extremities, Denies chest pain, Denies leg edema, Denies lightheadedness, Denies palpitations and Denies dyspnea Respiratory: Reports as per HPI, Denies no additional respiratory complaints and Denies dyspnea Gastrointestinal: Reports as per HPI and Denies no additional gastrointestinal complaints Genitourinary: Reports no additional male genitourinary complaints and Reports as per HPI Musculoskeletal: Reports no additional musculoskeletal complaints and Reports as per HPI Skin/Breast: Reports system reviewed and no additional complaints, except as docu Reports system reviewed and no additional complaints, except as documented and Reports as per HPI Psychiatric: Reports no additional psychiatric complaints and Reports as per HPI Endocrine: Reports no additional endocrine complaints, Reports as per HPI and Denies palpitations Hematologic/Lymphatic: Reports no additional hematologic/lymphatic complaints and Reports as per HPI Allergic/Immunologic: Reports no additional allergic/immunologic complaints and Reports as per HPI Physical Exam Vital Signs: Last Vital Signs Temp 98.0 F 07/10/25 10:58 Pulse 69 07/10/25 10:58 Resp 18 07/10/25 10:58 BP 122/58 L 07/10/25 10:58 Pulse Ox 97 07/10/25 10:58 O2 Del Method Room Air 07/10/25 10:58 O2 Flow Rate 3 07/04/25 01:40 BMI result Body Mass Index 28.0 Const General: comfortable and no acute distress Orientation/consciousness: patient oriented x3 HEENT Other: Unremarkable Head: Yes normal to inspection Neck Neck: Yes normal visual inspection Chest Chest palpation & inspection: normal inspection of the chest Resp Auscultation: clear to auscultation bilaterally Cardio Other: Mechanical heart valve sounds noted. GI Palpation (GI): Soft to palpation Back/Spine/Pelvis Other: unremarkable Skin General skin exam: no rashes or lesions noted Neuro General: patient oriented x3 Extrem General: Yes normal to inspection Psych Mental Status: mental status grossly normal Objective Labs and Meds 07/10/25 12:04 07/10/25 12:04 Lab results: Laboratory Results - last 24 hr 07/10/25 07/10/25 06:59 12:04 WBC 5.8 RBC 2.62 L Hgb 8.1 L Hct 24.7 L MCV 94.3 MCH 30.9 MCHC 32.8 RDW 22.1 H Plt Count 209 MPV 11.1 Absolute Nucleated RBC 0.020 H Nucleated RBC % (auto) 0.3 H PT 14.1 H INR 1.2 H Sodium 138 Potassium 4.1 Chloride 102 Carbon Dioxide 27 Anion Gap 13 BUN 21 H Creatinine 0.58 Estim Creat Clear Calc 120.6 Estimated GFR > 60 Random Glucose 91 Calcium 8.8 Magnesium 1.9 Progress Note: A&P Assessment and plan (1) H/O mechanical aortic valve replacement: Status: Acute (2) Postoperative anemia due to acute blood loss: Status: Acute (3) Hematoma: Status: Acute (4) Paroxysmal atrial fibrillation: Status: Acute Plan Echocardiogram from January 2025-LVEF 55-60%. Normally functioning mechanical aortic prosthesis. He has been almost close to weeks since the time of last surgery without any further rebleeding. Today's INR is 1.2 and it is still subtherapeutic. We discussed about going back on Lovenox but he is against it. He states that he will just take this chance for any thromboembolic complications. He would like to just stay on Coumadin. Hence continue Coumadin but probably give a higher dose unusual to get him back to therapeutic range soon. On telemetry, there was a 36 beat run of monomorphic VT. Less likely supraventricular but possible. Underlying atrial fibrillation. Electrolytes were just checked and they are within normal range. Continue beta- blockers. Could be related to hemodynamic stress from anemia and recurring surgical needs from the hematoma. We can follow on tele while he is here. However, he just states that he has had enough and he would just deal with any consequences as the main concern he is having is the hip pain. Discussed with Dr. Kenney and Dorene Monaco. Time Spent With Patient Time: Total time managing care of this patient today ____ minutes. Progress Note: Quality Stroke Does the patient have a stroke diagnosis?: No Procedures Date of Service Date of Service: 07/10/25
[2025-07-10 15:15] VITALS: BP 121/60; PULSE 75; RESP 20; TEMP 36.6; O2SAT 97
[2025-07-10 19:07] VITALS: BP 132/63; PULSE 92; RESP 18; TEMP 36.3; O2SAT 98
[2025-07-10 23:11] VITALS: BP 142/63; PULSE 68; RESP 16; TEMP 36.4; O2SAT 97
[2025-07-11] VITALS (7 sets, daily range): BP systolic 104–142; BP diastolic 51–72; PULSE 60–95; RESP 16–20; TEMP 36.2–37.2; O2SAT 96–98
--- NOTE | 2025-07-11 07:08 | PM.PNGS ---
Subjective Subjective Date of Service: 07/11/25 <Tasha Aleksandermateo - Last Filed: 07/11/25 07:26> 07/11/25 <Ahmet Lucas PA-C - Last Filed: 07/11/25 13:36> Interval history: Pt feels well and is pleased with is healing but reports that his left leg and hip feels more swollen as of yesterday. He is ambulatory. Per cardiology, he experienced a 36beat episode of monomorphic vtach and his dose of Coumadin was increased to 5mg with a bridging dose of 7mg. Pt was asymptomatic and Electrolytes were checked and came back WNL. Pt has been eating a solid diet and reports regular BM. He denies and fevers, nausea, chills, of weakness. Pt also stated he does not want a visiting wound care nurse and would like to come into the office for dressing changes. Upon examination, there are no signs of bleeding on the dressing. I did not examine underneath the dressing, as I wanted to wait until we changed it to avoid causing the patient pain. There was no pain upon palpation. His left leg and hip are swollen. <Tasha Aleksandermateo - Last Filed: 07/11/25 07:26> Physical Exam Vital Signs: Vital Signs: Last Vital Signs Temp 98 F 07/11/25 03:27 Pulse 61 07/11/25 03:27 Resp 18 07/11/25 03:27 BP 141/64 H 07/11/25 03:27 Pulse Ox 96 07/11/25 03:27 O2 Del Method Room Air 07/11/25 03:27 O2 Flow Rate 3 07/04/25 01:40 BMI result Body Mass Index 28.0 <Tasha Torres - Last Filed: 07/11/25 07:26> Const: General: comfortable and no acute distress <POWER Larson Last Filed: 07/11/25 13:36> Orientation/consciousness: patient oriented x3 <POWER Larson Last Filed: 07/11/25 13:36> Resp: Effort & Inspection: normal respiratory effort and able to speak in complete sentences <POWER Larson Last Filed: 07/11/25 13:36> Neuro: General: patient oriented x3 <Ahmet Lucas PA-C - Last Filed: 07/11/25 13:36> Extrem: Other: LLE wound dressing in place, no saturation noted. LLE edema 1+ <Ahmet Lucas PA-C - Last Filed: 07/11/25 13:36> Objective Data Active Medications Albuterol Sulfate (Albuterol Sulfate 90 Mcg 8 Gm Inhaler) 2 puff INHALE RQ6H PRN PRN Reason: shortness of breath or wheezing Doxazosin Mesylate (Doxazosin Mesylate 2 Mg Tablet) 4 mg PO BEDTIME [facility]; Protocol Last Admin: 07/10/25 21:24 Dose: 4 mg Documented By: LORETO Finasteride (Finasteride 5 Mg Tablet) 5 mg PO DAILY [facility] Last Admin: 07/10/25 08:46 Dose: 5 mg Documented By: JEVON Hydromorphone HCl (Hydromorphone Hcl 0.5 Mg/0.5 Ml Syringe) 0.5 mg IVPUSH Q3H PRN; Protocol PRN Reason: Pain, Severe (Pain Scale 7-10) Last Admin: 07/11/25 00:04 Dose: 0.5 mg Documented By: LORETO Metoprolol Tartrate (Metoprolol Tartrate 50 Mg Tablet) 50 mg PO BID [facility]; Protocol Last Admin: 07/10/25 21:23 Dose: 50 mg Documented By: LORETO Pt Own (Rosuvastatin (40 Mg Tablet)) 40 mg PO DAILY [facility] Last Admin: 07/10/25 08:46 Dose: 40 mg Documented By: JEVON Ondansetron HCl (Ondansetron Hcl 4 Mg/2 Ml Vial) 4 mg IVPUSH QID PRN PRN Reason: Nausea Warfarin Sodium (Warfarin Sodium 5 Mg Tablet) 5 mg PO DAILY@1800 [facility] <Tasha Torres - Last Filed: 07/11/25 07:26> Labs CBC & Chem 7: 07/10/25 12:04 07/10/25 12:04 <Tasha Torres - Last Filed: 07/11/25 07:26> Labs: Laboratory Results - last 24 hr 07/10/25 07/10/25 06:59 12:04 MCV 94.3 MCH 30.9 MCHC 32.8 RDW 22.1 H Plt Count 209 MPV 11.1 Absolute Nucleated RBC 0.020 H Nucleated RBC % (auto) 0.3 H PT 14.1 H INR 1.2 H Anion Gap 13 Estim Creat Clear Calc 120.6 Estimated GFR > 60 Random Glucose 91 Calcium 8.8 Magnesium 1.9 <Tasha Torres - Last Filed: 07/11/25 07:26> Procedures Date of Service Date of Service: 07/11/25 <Tasha Torres - Last Filed: 07/11/25 07:26> 07/11/25 <Ahmet Lucas PA-C - Last Filed: 07/11/25 13:36> Progress Note: A&P Assessment and plan (1) S/P evacuation of hematoma: Status: Acute <Tasha Torres - Last Filed: 07/11/25 07:26> Assessment and Plan: Continue with dressing changes Continue with diet Continue to ambulate Monitor closely for rebleeding given the increase in Coumadin dose <Tasha Torers - Last Filed: 07/11/25 07:26> Continue with dressing changes Continue with diet Continue to ambulate Monitor closely for rebleeding given the increase in Coumadin dose patient seen and examined independently, I agree with the above plan. Patient is nearing discharge, from a surgical standpoint, he can be discharged either today or tomorrow pending cardiology input due to episode of monomorphic vtach and his dose of Coumadin was increased to 5mg with a bridging dose of 7mg. we will continue to monitor for new bleeding after this dosage increase. INR remains 1.2 this morning, H/h stable yesterday. Patient will follow up in the office for dressing changes.. We will continue with dressing changes daily while admitted <Ahmet Lucas PA-C - Last Filed: 07/11/25 13:36> Time Spent With Patient Time: Total time managing care of this patient today ____ minutes. <Tasha Torres - Last Filed: 07/11/25 07:26> Quality Stroke Does the patient have a stroke diagnosis?: No <Tasha Torres - Last Filed: 07/11/25 07:26> VTE Prior VTE?: No <Tasha Torres - Last Filed: 07/11/25 07:26> VTE Risk Level:: Surgical - moderate <Tasha Torres - Last Filed: 07/11/25 07:26> VTE Device Contraindication: N/A - Device Ordered <Tasha Torres - Last Filed: 07/11/25 07:26> VTE Drug Contraindication: N/A - Med Ordered <Tasha Torres - Last Filed: 07/11/25 07:26>
[2025-07-11 07:49] LABS: INTERNATIONAL NORM RATIO 1.2 (0.9-1.1); Prothrombin Time 14.1 SEC (10.9-12.4)
--- NOTE | 2025-07-11 08:50 | P.PNIM_ITS ---
Subjective Subjective Date of Service: 07/11/25 Interval History: Doing well, pain well managed No acute events overnight: No repeat episodes of VT, no bleeding Denies any acute medical complaints Review of Systems Review of Systems: Yes all other systems are reviewed and are negative Physical Exam 2 Exam: Exam: General: AOx3, no acute distress Resp: CTA bilaterally CVS: S1, S2, irregularly irregular rhythm, +mechanical click GI: +BS, NT, no distention Skin: Warm, dry Neuro: Cranial nerves II-XII grossly intact bilaterally. Motor grossly intact bilaterally Extremities: 2+ left leg pitting edema Psych: Appropriate affect Vital Signs: Vital Signs: Last Vital Signs Temp 97.5 F 07/11/25 07:13 Pulse 95 07/11/25 07:13 Resp 17 07/11/25 07:13 BP 142/72 H 07/11/25 07:13 Pulse Ox 98 07/11/25 07:13 O2 Del Method Room Air 07/11/25 07:13 O2 Flow Rate 3 07/04/25 01:40 BMI result Body Mass Index 28.0 Objective Data Active Medications Albuterol Sulfate (Albuterol Sulfate 90 Mcg 8 Gm Inhaler) 2 puff INHALE RQ6H PRN PRN Reason: shortness of breath or wheezing Doxazosin Mesylate (Doxazosin Mesylate 2 Mg Tablet) 4 mg PO BEDTIME [facility]; Protocol Last Admin: 07/10/25 21:24 Dose: 4 mg Documented By: LORETO Finasteride (Finasteride 5 Mg Tablet) 5 mg PO DAILY [facility] Last Admin: 07/10/25 08:46 Dose: 5 mg Documented By: JEVON Hydromorphone HCl (Hydromorphone Hcl 0.5 Mg/0.5 Ml Syringe) 0.5 mg IVPUSH Q3H PRN; Protocol PRN Reason: Pain, Severe (Pain Scale 7-10) Last Admin: 07/11/25 00:04 Dose: 0.5 mg Documented By: LORETO Metoprolol Tartrate (Metoprolol Tartrate 50 Mg Tablet) 50 mg PO BID [facility]; Protocol Last Admin: 07/10/25 21:23 Dose: 50 mg Documented By: LORETO Pt Own (Rosuvastatin (40 Mg Tablet)) 40 mg PO DAILY [facility] Last Admin: 07/10/25 08:46 Dose: 40 mg Documented By: JEVON Ondansetron HCl (Ondansetron Hcl 4 Mg/2 Ml Vial) 4 mg IVPUSH QID PRN PRN Reason: Nausea Warfarin Sodium (Warfarin Sodium 5 Mg Tablet) 5 mg PO DAILY@1800 [facility] Labs 07/10/25 12:04 07/10/25 12:04 Labs: Laboratory Results - last 24 hr 07/10/25 07/11/25 12:04 07:25 MCV 94.3 MCH 30.9 MCHC 32.8 RDW 22.1 H Plt Count 209 MPV 11.1 Absolute Nucleated RBC 0.020 H Nucleated RBC % (auto) 0.3 H Hold Purple Top SEE NOTE PT 14.1 H INR 1.2 H Anion Gap 13 Estim Creat Clear Calc 120.6 Estimated GFR > 60 Random Glucose 91 Calcium 8.8 Magnesium 1.9 Assessment and Plan (1) Postoperative anemia due to acute blood loss: Status: Acute Plan This is a 89-year-old male with a history of mechanical aortic valve, atrial fibrillation on anticoagulation with Coumadin, hypertension, history of Guillain-Cossayuna are with complete recovery who recently underwent resection of left hip mass and presented to the emergency department with bleeding found to have hematoma and acute bleeding of the surgical site status post hematoma evacuation and ligation of arterial bleeding site hospital course complicated by recurrent bleeding requiring returning to the OR 06/30, 07/02, 07/04 Acute blood loss anemia due to hematoma from left hip surgical site (initially had left hip mass removed 06/27) s/p hematoma evacuation 06/30 and repeat cauterizations on 07/02 and 07/04 due to recurrent bleeding Pt with h/o transfusion reaction (fever and urticaria per blood bank); requires premedication with Tylenol and Bendryl prior to transfusions Transfused one unit PRBCs on 07/01 and again on 07/02 H/H now stable stable Mechanical aortic valve with subtherapeutic INR Anticoagulation has been intermittently on hold during stay Cardiology consulted, recommend resuming Coumadin without Lovenox bridge INR has remained persistently low for several days; discussed with pharmacy, gave 7mg Coumadin yesterday without change in INR (1.2); will increase dose from 5 mg to 6 mg daily starting today Due to recurrent bleeding pt does not want to do any more bridging with Lovenox. He understands risks regarding his mechanical valve Follow INR daily Ventricular tachycardia 36 beats overnight on, pt asymptomatic Metoprolol increased to 50 mg bid per Cardiology Cardiology following Chronic atrial fibrillation Continue metoprolol 50mg bid Coumadin as above Right arm pain/heaviness, numbness and tingling; resolved Sudden onset on the evening of 07/01/2025 Neuro exam reassuring, no focal deficits noted CT of head negative for acute abnormality Currently back to baseline Likely musculoskeletal due to acute intervention during rapid response for hypotension Thrombocytopenia Appears chronic but platelet count has improved to 209 BPH Continue doxazosin, finasteride Hypertension BP meds placed on hold for hypotension started on BB for tachycardia lisinopril, lasix and aldactone have been on hold Monitor blood pressure closely and resume antihypertensives as necessary HLD Continue statin We will continue to follow along with you. Quality Stroke Does the patient have a stroke diagnosis?: No VTE Prior VTE?: No VTE Risk Level:: Surgical - moderate VTE Device Contraindication: N/A - Device Ordered VTE Drug Contraindication: N/A - Med Ordered
[2025-07-11] MEDS: PT OWN (Rosuvastatin 40 mg tablet) 40 EACH PO (09:00)
--- NOTE | 2025-07-11 11:16 | MHC.CM.PN ---
EMR REVIEWED, PER SURGICAL NOTE AND PT REQUEST PT WILL COME IN TO SURGEON'S OFFICE FOR DRESSING CHANGES INSTEAD OF HAVING VNA, PT REPORTS HE IS VERY ACTIVE AND DOES NOT NEED TO BE HOME BOUND FOR SERVICES. PT REPORTS SURGICAL TOLD HIM HE WILL LIKELY BE READY FOR DC FRIDAY OR FRIDAY AT THE LATEST. CM WILL CONT SURGICAL OFFICE TO DETERMINE APPROX TIME PT WILL NEED TO GO INTO OFFICE FOR DRESSING CHANGES. CM WILL CONT TO FOLLOW DC NEEDS.
--- NOTE | 2025-07-11 12:08 | PM.PNCARD ---
Subjective Subjective Date of Service: 07/11/25 Interval history: Seen examined at bedside. INR 1.2 today. Physical Exam Vital Signs: Last Vital Signs Temp 97.1 F 07/11/25 11:03 Pulse 67 07/11/25 11:03 Resp 18 07/11/25 11:03 BP 131/60 07/11/25 11:03 Pulse Ox 98 07/11/25 11:03 O2 Del Method Room Air 07/11/25 11:03 O2 Flow Rate 3 07/04/25 01:40 BMI result Body Mass Index 28.0 GENERAL APPEARANCE: in no acute distress, pleasant. NECK: no carotid bruit, no jugular venous distention. SKIN: no suspicious lesions, warm and dry. HEART: no murmurs, mechanical 2nd heart sound. LUNGS: clear to auscultation bilaterally. ABDOMEN: soft, nontender. EXTREMITIES: Left lateral thigh dressed-recent surgery. PERIPHERAL PULSES: equal. NEUROLOGIC: No gross deficits, AAO X 3 Objective Labs and Meds 07/10/25 12:04 07/10/25 12:04 Lab results: Laboratory Results - last 24 hr 07/10/25 07/11/25 12:04 07:25 WBC 5.8 RBC 2.62 L Hgb 8.1 L Hct 24.7 L MCV 94.3 MCH 30.9 MCHC 32.8 RDW 22.1 H Plt Count 209 MPV 11.1 Absolute Nucleated RBC 0.020 H Nucleated RBC % (auto) 0.3 H Hold Purple Top SEE NOTE PT 14.1 H INR 1.2 H Sodium 138 Potassium 4.1 Chloride 102 Carbon Dioxide 27 Anion Gap 13 BUN 21 H Creatinine 0.58 Estim Creat Clear Calc 120.6 Estimated GFR > 60 Random Glucose 91 Calcium 8.8 Magnesium 1.9 Progress Note: A&P Assessment and plan (1) H/O mechanical aortic valve replacement: Status: Acute (2) Current use of anticoagulant therapy: Status: Acute Plan 89-year-old gentleman with known history of atrial fibrillation and previous mechanical aortic valve replacement on chronic Coumadin therapy. 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 He is subtherapeutic at this point with INR of 1.2. His INR on admission was also subtherapeutic at 1.7. His target INR is 2-3 but with hematoma formation in the left thigh would target 2-2.5 if possible. Coumadin dose is being adjusted at this point. He mostly has been in atrial fibrillation. Clinically stable otherwise. We will follow along with you. Thank you for allowing me to participate in the care of your patient. Please feel free to contact me if you have any questions. Time Spent With Patient Time: Total time managing care of this patient today ____ minutes. Progress Note: Quality Stroke Does the patient have a stroke diagnosis?: No Procedures Date of Service Date of Service: 07/11/25
[2025-07-12] VITALS (8 sets, daily range): BP systolic 114–138; BP diastolic 56–64; PULSE 54–81; RESP 18–20; TEMP 36.2–37.4; O2SAT 95–97
--- NOTE | 2025-07-12 07:03 | P.PNGS_ITS ---
Subjective Subjective Date of Service: 07/12/25 <Tasha Torres - Last Filed: 07/12/25 07:14> 07/12/25 <Ahmet Lucas PA-C - Last Filed: 07/12/25 09:41> Interval history: Pt is doing well today. He states there was no pain last night and he did not receive any pain medication. Pt is ambulatory and tolerating solid diet well. He reports passing flatus and having BM. He denies any fevers, chills, nausea, or vomiting. Cardiology is monitoring his Coumadin dose and raised it from 5mg to 6mg with the goal of getting to 7mg in the coming days. Pt reiterated having his dressing changes in office. L leg is still swollen with pitting edema but less than yesterday. Dressing shows no sign of rebleeding. I did not lift the dressing to inspect the wound, but this will be done during rounds today. <Tashanitin Armijomateo - Last Filed: 07/12/25 07:14> Pt is doing well today. He states there was no pain last night and he did not receive any pain medication. Pt is ambulatory and tolerating solid diet well. He reports passing flatus and having BM. He denies any fevers, chills, nausea, or vomiting. Cardiology is monitoring his Coumadin dose and raised it from 5mg to 6mg with the goal of getting to 7mg in the coming days. Pt reiterated having his dressing changes in office. L leg is still swollen with pitting edema but less than yesterday. Dressing shows no sign of rebleeding. I did not lift the dressing to inspect the wound, but this will be done during rounds today. doing well today, would like to be discharged on , does not want VNA, would liek to follow up in the office for dressing changes <Ahmet Lucas PA-C - Last Filed: 07/12/25 09:41> Physical Exam 2 Vital Signs: Vital Signs: Last Vital Signs Temp 98.0 F 07/12/25 03:35 Pulse 70 07/12/25 03:35 Resp 20 07/12/25 03:35 BP 133/64 07/12/25 03:35 Pulse Ox 97 07/12/25 03:35 O2 Del Method Room Air 07/12/25 03:35 O2 Flow Rate 3 07/04/25 01:40 BMI result Body Mass Index 28.0 <Tasha Torres - Last Filed: 07/12/25 07:14> Objective Data Active Medications Albuterol Sulfate (Albuterol Sulfate 90 Mcg 8 Gm Inhaler) 2 puff INHALE RQ6H PRN PRN Reason: shortness of breath or wheezing Doxazosin Mesylate (Doxazosin Mesylate 2 Mg Tablet) 4 mg PO BEDTIME [facility]; Protocol Last Admin: 07/11/25 20:06 Dose: 4 mg Documented By: JUDY Finasteride (Finasteride 5 Mg Tablet) 5 mg PO DAILY [facility] Last Admin: 07/11/25 09:00 Dose: 5 mg Documented By: PATRICIA Hydromorphone HCl (Hydromorphone Hcl 0.5 Mg/0.5 Ml Syringe) 0.5 mg IVPUSH Q3H PRN; Protocol PRN Reason: Pain, Severe (Pain Scale 7-10) Last Admin: 07/11/25 00:04 Dose: 0.5 mg Documented By: LORETO Metoprolol Tartrate (Metoprolol Tartrate 50 Mg Tablet) 50 mg PO BID [facility]; Protocol Last Admin: 07/11/25 20:06 Dose: 50 mg Documented By: JUDY Pt Own (Rosuvastatin (40 Mg Tablet)) 40 mg PO DAILY [facility] Last Admin: 07/11/25 09:00 Dose: 40 mg Documented By: PATRICIA Ondansetron HCl (Ondansetron Hcl 4 Mg/2 Ml Vial) 4 mg IVPUSH QID PRN PRN Reason: Nausea Warfarin Sodium (Warfarin Sodium 6 Mg Tablet) 6 mg PO DAILY@1800 [facility] Last Admin: 07/11/25 17:31 Dose: 6 mg Documented By: PATRICIA <Tasha Torres - Last Filed: 07/12/25 07:14> Labs CBC & Chem 7: 07/10/25 12:04 07/10/25 12:04 <Tasha Torres - Last Filed: 07/12/25 07:14> Labs: Laboratory Results - last 24 hr 07/11/25 07:25 Hold Purple Top SEE NOTE PT 14.1 H INR 1.2 H <Tasha Torres - Last Filed: 07/12/25 07:14> Procedures Date of Service Date of Service: 07/12/25 <Tasha Torres - Last Filed: 07/12/25 07:14> 07/12/25 <Ahmet Lucas PA-C - Last Filed: 07/12/25 09:41> Progress Note: A&P Assessment and plan (1) S/P evacuation of hematoma: Status: Acute <Tasha Aleksandermateo - Last Filed: 07/12/25 07:14> (2) Current use of anticoagulant therapy: Status: Acute <Tashanitin Armijomateo - Last Filed: 07/12/25 07:14> Assessment and Plan: 89 yo male with PMH of mechanical AVR on coumadin, HTN, and acute anemia due to post surgical bleeding requiring 2x transfusions, s/p excision of chronic hematoma of L thigh and recurrent hematoma of L thigh. Pt is feeling much better and is no longer reporting any pain. Follow with Cardiology in regards to Coumadin dosing and monitoring any re- bleeds Continue dressing changes daily Conitnue diet and ambulation <Tashanitin Armijomateo - Last Filed: 07/12/25 07:14> 89 yo male with PMH of mechanical AVR on coumadin, HTN, and acute anemia due to post surgical bleeding requiring 2x transfusions, s/p excision of chronic hematoma of L thigh and recurrent hematoma of L thigh. Pt is feeling much better and is no longer reporting any pain. Follow with Cardiology in regards to Coumadin dosing and monitoring any re- bleeds Continue dressing changes daily Conitnue diet and ambulation Patient seen and examined independently, i agree with the above assessment and plan. We are continuing with wound care. Per cardiology, titrating warfarin to a goal therapuetic level of 2.0-2.5, today is 1.5. Cardiology input appreciated. Dressings remain in place, he does still have some left leg edema. We will change dressings this afternoon, will try to use a different dressing that will allow for less frequent dressing changes in preparation for dc and following up in the office for nursing visits for wound care. patient would like to dc on . <Ahmet Lucas PA-C - Last Filed: 07/12/25 09:41> Time Spent With Patient Time: Total time managing care of this patient today ____ minutes. <Tasha Torres - Last Filed: 07/12/25 07:14> Quality Stroke Does the patient have a stroke diagnosis?: No <Tasha Torres - Last Filed: 07/12/25 07:14> VTE Prior VTE?: No <Tasha Torres - Last Filed: 07/12/25 07:14> VTE Risk Level:: Surgical - moderate <Tasha Torres Last Filed: 07/12/25 07:14> VTE Device Contraindication: N/A - Device Ordered <Tasha Torres Last Filed: 07/12/25 07:14> VTE Drug Contraindication: N/A - Med Ordered <Tasha Torres Last Filed: 07/12/25 07:14>
[2025-07-12 07:16] LABS: INTERNATIONAL NORM RATIO 1.5 (0.9-1.1); Prothrombin Time 17.0 SEC (10.9-12.4)
[2025-07-12] MEDS: PT OWN (Rosuvastatin 40 mg tablet) 40 EACH PO (07:49)
--- NOTE | 2025-07-12 09:56 | PM.PNCARD ---
Subjective Subjective Date of Service: 07/12/25 Interval history: Seen examined at bedside. No new complaints. INR 1.5. Physical Exam Vital Signs: Last Vital Signs Temp 97.6 F 07/12/25 07:42 Pulse 67 07/12/25 07:42 Resp 18 07/12/25 07:42 BP 138/64 07/12/25 07:42 Pulse Ox 95 07/12/25 07:42 O2 Del Method Room Air 07/12/25 07:42 O2 Flow Rate 3 07/04/25 01:40 BMI result Body Mass Index 28.0 GENERAL APPEARANCE: in no acute distress, pleasant. NECK: no carotid bruit, no jugular venous distention. SKIN: no suspicious lesions, warm and dry. HEART: no murmurs, mechanical 2nd heart sound. LUNGS: clear to auscultation bilaterally. ABDOMEN: soft, nontender. EXTREMITIES: Left lateral thigh dressed-recent surgery. PERIPHERAL PULSES: equal. NEUROLOGIC: No gross deficits, AAO X 3 Objective Labs and Meds 07/10/25 12:04 07/10/25 12:04 Lab results: Laboratory Results - last 24 hr 07/12/25 06:15 PT 17.0 H D INR 1.5 H Progress Note: A&P Assessment and plan (1) H/O mechanical aortic valve replacement: Status: Acute (2) Current use of anticoagulant therapy: Status: Acute Plan 89-year-old gentleman with known history of atrial fibrillation and previous mechanical aortic valve replacement on chronic Coumadin therapy. 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 He is subtherapeutic at this point with INR of 1.5. His INR on admission was also subtherapeutic at 1.7. His target INR is 2-3 but with hematoma formation in the left thigh would target 2-2.5 if possible. I think we continue Coumadin 6 mg daily. He mostly has been in atrial fibrillation. Clinically stable otherwise. We will follow along with you. Thank you for allowing me to participate in the care of your patient. Please feel free to contact me if you have any questions. Time Spent With Patient Time: Total time managing care of this patient today ____ minutes. Progress Note: Quality Stroke Does the patient have a stroke diagnosis?: No Procedures Date of Service Date of Service: 07/12/25
[2025-07-13] VITALS (8 sets, daily range): BP systolic 123–155; BP diastolic 59–68; PULSE 52–82; RESP 16–18; TEMP 36.6–37; O2SAT 96–98
--- NOTE | 2025-07-13 06:56 | P.PNGS_ITS ---
Subjective Subjective Date of Service: 07/13/25 <aTsha Khanjeramie - Last Filed: 07/13/25 07:02> 07/13/25 <Paddy Kendall MD - Last Filed: 07/13/25 14:06> 07/13/25 <Ahmet Lucas PA-C - Last Filed: 07/13/25 15:50> Interval history: Pt reports one episode of pain the morning around 4am for which he received dilaudid. He states his legs and hip are much less swollen. Pt is having regular BM, tolerating his diet well, and ambulatory. He denies any fevers, chills, nausea, or vomiting. L leg appears much better with trace amount of edema. Upon palpation, no pain was elicited. There were no signs of rebleeding on the dressing. <Tasha Torres - Last Filed: 07/13/25 07:02> Physical Exam 2 Vital Signs: Vital Signs: Last Vital Signs Temp 98.4 F 07/13/25 03:38 Pulse 54 07/13/25 03:38 Resp 18 07/13/25 03:38 BP 147/67 H 07/13/25 03:38 Pulse Ox 98 07/13/25 03:38 O2 Del Method Room Air 07/13/25 03:38 O2 Flow Rate 3 07/04/25 01:40 BMI result Body Mass Index 28.0 <Tasha Torres - Last Filed: 07/13/25 07:02> Objective Data Active Medications Albuterol Sulfate (Albuterol Sulfate 90 Mcg 8 Gm Inhaler) 2 puff INHALE RQ6H PRN PRN Reason: shortness of breath or wheezing Doxazosin Mesylate (Doxazosin Mesylate 2 Mg Tablet) 4 mg PO BEDTIME [facility]; Protocol Last Admin: 07/12/25 21:25 Dose: 4 mg Documented By: BARBI Finasteride (Finasteride 5 Mg Tablet) 5 mg PO DAILY [facility] Last Admin: 07/12/25 07:49 Dose: 5 mg Documented By: PATRICIA Hydromorphone HCl (Hydromorphone Hcl 0.5 Mg/0.5 Ml Syringe) 0.5 mg IVPUSH Q3H PRN; Protocol PRN Reason: Pain, Severe (Pain Scale 7-10) Last Admin: 07/13/25 05:21 Dose: 0.5 mg Documented By: BARBI Metoprolol Tartrate (Metoprolol Tartrate 50 Mg Tablet) 50 mg PO BID [facility]; Protocol Last Admin: 07/12/25 21:26 Dose: 50 mg Documented By: BARBI Pt Own (Rosuvastatin (40 Mg Tablet)) 40 mg PO DAILY [facility] Last Admin: 07/12/25 07:49 Dose: 40 mg Documented By: PATRICIA Ondansetron HCl (Ondansetron Hcl 4 Mg/2 Ml Vial) 4 mg IVPUSH QID PRN PRN Reason: Nausea Warfarin Sodium (Warfarin Sodium 6 Mg Tablet) 6 mg PO DAILY@1800 [facility] Last Admin: 07/12/25 18:03 Dose: 6 mg Documented By: PATRICIA <Tasha Torres - Last Filed: 07/13/25 07:02> Labs CBC & Chem 7: 07/10/25 12:04 07/10/25 12:04 <Tasha Torres - Last Filed: 07/13/25 07:02> Labs: Laboratory Results - last 24 hr 07/12/25 06:15 PT 17.0 H D INR 1.5 H <Tasha Torres - Last Filed: 07/13/25 07:02> Procedures Date of Service Date of Service: 07/13/25 <Tasha Torres - Last Filed: 07/13/25 07:02> 07/13/25 <Paddy Kendall MD - Last Filed: 07/13/25 14:06> 07/13/25 <Ahmet Lucas PA-C - Last Filed: 07/13/25 15:50> Progress Note: A&P Assessment and plan (1) Hematoma: Status: Acute <Tasha Torres - Last Filed: 07/13/25 07:02> Assessment and Plan: 89 yo male with PMH of mechanical AVR on coumadin, HTN, and acute anemia due to post surgical bleeding requiring 2x transfusions, s/p excision of chronic hematoma of L thigh and recurrent hematoma of L thigh. He reported one episode of pain in the morning but is otherwise doing well. Continue dressing changes every other day Continue diet as tolerated and ambulation If cleared by cardiology, prepare for discharge tomorrow <Tasha Torres - Last Filed: 07/13/25 07:02> 89 yo male with PMH of mechanical AVR on coumadin, HTN, and acute anemia due to post surgical bleeding requiring 2x transfusions, s/p excision of chronic hematoma of L thigh and recurrent hematoma of L thigh. He reported one episode of pain in the morning but is otherwise doing well. Continue dressing changes every other day Continue diet as tolerated and ambulation If cleared by cardiology, prepare for discharge tomorrow Seen and examined; agree with the above assessment and plan. <Paddy Kendall MD - Last Filed: 07/13/25 14:06> 89 yo male with PMH of mechanical AVR on coumadin, HTN, and acute anemia due to post surgical bleeding requiring 2x transfusions, s/p excision of chronic hematoma of L thigh and recurrent hematoma of L thigh. He reported one episode of pain in the morning but is otherwise doing well. Continue dressing changes every other day Continue diet as tolerated and ambulation If cleared by cardiology, prepare for discharge tomorrow Seen and examined; agree with the above assessment and plan. <Ahmet Lucas PA-C - Last Filed: 07/13/25 15:50> Time Spent With Patient Time: Total time managing care of this patient today ____ minutes. <Tasha Torres - Last Filed: 07/13/25 07:02> Quality Stroke Does the patient have a stroke diagnosis?: No <Tasha Torres - Last Filed: 07/13/25 07:02> VTE Prior VTE?: No <Tasha Torres - Last Filed: 07/13/25 07:02> VTE Risk Level:: Surgical - moderate <Tasha Torres - Last Filed: 07/13/25 07:02> VTE Device Contraindication: N/A - Device Ordered <Tasha Torres - Last Filed: 07/13/25 07:02> VTE Drug Contraindication: N/A - Med Ordered <Tasha Torres - Last Filed: 07/13/25 07:02>
[2025-07-13 07:10] LABS: INTERNATIONAL NORM RATIO 1.7 (0.9-1.1); Prothrombin Time 19.0 SEC (10.9-12.4)
[2025-07-13] MEDS: PT OWN (Rosuvastatin 40 mg tablet) 40 EACH PO (08:55)
--- NOTE | 2025-07-13 13:21 | MHC.CM.PN ---
Pt. getting better, surgical PN states he can DC to home tomorrow after cardiology input. CM to follow.
--- NOTE | 2025-07-13 18:16 | HO.PM.IMPN ---
Subjective Subjective Date of Service: 07/13/25 Interval History: Doing well overall No recurrent bleeding Pain well controlled Swelling in right lower leg improved Review of Systems Review of Systems: Yes all other systems are reviewed and are negative Physical Exam Exam: Exam: General: AOx3, no acute distress Resp: CTA bilaterally CVS: Irregularly irregular rhythm, +mechanical click GI: +BS, NT, no distention Skin: Warm, dry Neuro: Cranial nerves II-XII grossly intact bilaterally. Motor grossly intact bilaterally Extremities: 1+ left leg pitting edema at ankle. Psych: Appropriate affect Vital Signs: Vital Signs: Last Vital Signs Temp 98.6 F 07/13/25 15:36 Pulse 82 07/13/25 15:36 Resp 18 07/13/25 15:36 BP 123/59 L 07/13/25 15:36 Pulse Ox 96 07/13/25 15:36 O2 Del Method Room Air 07/13/25 15:36 O2 Flow Rate 3 07/04/25 01:40 BMI result Body Mass Index 28.0 Objective Data Active Medications Albuterol Sulfate (Albuterol Sulfate 90 Mcg 8 Gm Inhaler) 2 puff INHALE RQ6H PRN PRN Reason: shortness of breath or wheezing Doxazosin Mesylate (Doxazosin Mesylate 2 Mg Tablet) 4 mg PO BEDTIME [facility]; Protocol Last Admin: 07/12/25 21:25 Dose: 4 mg Documented By: BARBI Finasteride (Finasteride 5 Mg Tablet) 5 mg PO DAILY [facility] Last Admin: 07/13/25 08:55 Dose: 5 mg Documented By: MANUEL Hydromorphone HCl (Hydromorphone Hcl 0.5 Mg/0.5 Ml Syringe) 0.5 mg IVPUSH Q3H PRN; Protocol PRN Reason: Pain, Severe (Pain Scale 7-10) Last Admin: 07/13/25 05:21 Dose: 0.5 mg Documented By: BARBI Metoprolol Tartrate (Metoprolol Tartrate 50 Mg Tablet) 50 mg PO BID [facility]; Protocol Last Admin: 07/13/25 08:55 Dose: 50 mg Documented By: MANUEL Pt Own (Rosuvastatin (40 Mg Tablet)) 40 mg PO DAILY [facility] Last Admin: 07/13/25 08:55 Dose: 40 mg Documented By: HO.MARSHC Ondansetron HCl (Ondansetron Hcl 4 Mg/2 Ml Vial) 4 mg IVPUSH QID PRN PRN Reason: Nausea Warfarin Sodium (Warfarin Sodium 6 Mg Tablet) 6 mg PO DAILY@1800 [facility] Last Admin: 07/12/25 18:03 Dose: 6 mg Documented By: PATRICIA Labs 07/10/25 12:04 07/10/25 12:04 Labs: Laboratory Results - last 24 hr 07/13/25 06:52 PT 19.0 H INR 1.7 H Assessment and Plan (1) Subtherapeutic international normalized ratio (INR): Status: Acute (2) Postoperative anemia due to acute blood loss: Status: Acute Plan This is a 89-year-old male with a history of mechanical aortic valve, atrial fibrillation on anticoagulation with Coumadin, hypertension, 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 who recently underwent resection of left hip mass and presented to the emergency department with bleeding found to have hematoma and acute bleeding of the surgical site status post hematoma evacuation and ligation of arterial bleeding site hospital course complicated by recurrent bleeding requiring returning to the OR 06/30, 07/02, 07/04 Acute blood loss anemia due to hematoma from left hip surgical site (initially had left hip mass removed 06/27) s/p hematoma evacuation 06/30 and repeat cauterizations on 07/02 and 07/04 due to recurrent bleeding Pt with h/o transfusion reaction (fever and urticaria per blood bank); requires premedication with Tylenol and Bendryl prior to transfusions Transfused one unit PRBCs on 07/01 and again on 07/02 H/H now stable stable Mechanical aortic valve with subtherapeutic INR Anticoagulation has been intermittently on hold during stay Cardiology consulted, recommend resuming Coumadin without Lovenox bridge INR has remained persistently low for several days; discussed with pharmacy and Coumadin increased to 6mg with good response INR currently 1.7; per cardiology, goal is 2.0-2.5 Due to recurrent bleeding pt does not want to do any more bridging with Lovenox. He understands risks regarding his mechanical valve Follow INR daily Ventricular tachycardia 36 beats overnight on 07/09, pt asymptomatic Metoprolol increased to 50 mg bid per Cardiology Cardiology following Chronic atrial fibrillation Continue metoprolol 50mg bid Coumadin as above Right arm pain/heaviness, numbness and tingling; resolved Sudden onset on the evening of 07/01/2025 Neuro exam reassuring, no focal deficits noted CT of head negative for acute abnormality Currently back to baseline Likely musculoskeletal due to acute intervention during rapid response for hypotension Thrombocytopenia Appears chronic but platelet count has improved to 209 BPH Continue doxazosin, finasteride Hypertension BP meds placed on hold for hypotension started on BB for tachycardia lisinopril, lasix and aldactone have been on hold Monitor blood pressure closely and resume antihypertensives as necessary HLD Continue statin We will continue to follow along with you. Quality Stroke Does the patient have a stroke diagnosis?: No VTE Prior VTE?: No VTE Risk Level:: Surgical - moderate VTE Device Contraindication: N/A - Device Ordered VTE Drug Contraindication: Treatment Not Indicated
[2025-07-14 03:50] VITALS: BP 147/66; PULSE 64; RESP 16; TEMP 36.3; O2SAT 97
--- NOTE | 2025-07-14 06:54 | PM.PNGS ---
Subjective Subjective Date of Service: 07/14/25 <Tasha Johnsonmarii - Last Filed: 07/14/25 07:00> 07/14/25 <Paddy Kendall MD - Last Filed: 07/14/25 07:46> Interval history: Pt reports one episode of pain the morning for which he received pain meds. He reports the episode as a numbness and tingling that goes away with the pain medication. Pt is having regular BM, tolerating his diet well, and ambulatory. He denies any fevers, chills, nausea, or vomiting. He is okay with dressing changes every other day, and wants the dressing also changed on Friday to last him over the weekend. Additionally, he wants waterproof dressing for when he has to take a shower at home, but is unsure who to ask about that. L leg appears slightly more edematous than yesterday. Upon palpation of the wound site, no pain was elicited. There were no signs of rebleeding on the dressing <Tashanitin Armijomateo - Last Filed: 07/14/25 07:00> Physical Exam Vital Signs: Vital Signs: Last Vital Signs Temp 97.4 F 07/14/25 03:50 Pulse 64 07/14/25 03:50 Resp 16 07/14/25 03:50 BP 147/66 H 07/14/25 03:50 Pulse Ox 97 07/14/25 03:50 O2 Del Method Room Air 07/14/25 03:50 O2 Flow Rate 3 07/04/25 01:40 BMI result Body Mass Index 28.0 <Tashanitin Armijomateo - Last Filed: 07/14/25 07:00> Objective Data Active Medications Albuterol Sulfate (Albuterol Sulfate 90 Mcg 8 Gm Inhaler) 2 puff INHALE RQ6H PRN PRN Reason: shortness of breath or wheezing Doxazosin Mesylate (Doxazosin Mesylate 2 Mg Tablet) 4 mg PO BEDTIME [facility]; Protocol Last Admin: 07/13/25 21:43 Dose: 4 mg Documented By: BARBI Finasteride (Finasteride 5 Mg Tablet) 5 mg PO DAILY [facility] Last Admin: 07/13/25 08:55 Dose: 5 mg Documented By: MANUEL Hydromorphone HCl (Hydromorphone Hcl 0.5 Mg/0.5 Ml Syringe) 0.5 mg IVPUSH Q3H PRN; Protocol PRN Reason: Pain, Severe (Pain Scale 7-10) Last Admin: 07/14/25 02:15 Dose: 0.5 mg Documented By: BARIB Metoprolol Tartrate (Metoprolol Tartrate 50 Mg Tablet) 50 mg PO BID [facility]; Protocol Last Admin: 07/13/25 21:43 Dose: 50 mg Documented By: BARBI Pt Own (Rosuvastatin (40 Mg Tablet)) 40 mg PO DAILY [facility] Last Admin: 07/13/25 08:55 Dose: 40 mg Documented By: MANUEL Ondansetron HCl (Ondansetron Hcl 4 Mg/2 Ml Vial) 4 mg IVPUSH QID PRN PRN Reason: Nausea Warfarin Sodium (Warfarin Sodium 6 Mg Tablet) 6 mg PO DAILY@1800 [facility] Last Admin: 07/13/25 18:16 Dose: 6 mg Documented By: MANUEL <Tasha Torres - Last Filed: 07/14/25 07:00> Labs CBC & Chem 7: 07/14/25 07:16 07/10/25 12:04 <Tasha Torres - Last Filed: 07/14/25 07:00> Labs: Laboratory Results - last 24 hr 07/13/25 06:52 PT 19.0 H INR 1.7 H <Tasha Torres - Last Filed: 07/14/25 07:00> Procedures Date of Service Date of Service: 07/14/25 <Tasha Torres - Last Filed: 07/14/25 07:00> 07/14/25 <Paddy Kendall MD - Last Filed: 07/14/25 07:46> Progress Note: A&P Assessment and plan (1) Hematoma: Status: Acute <Tasha Torres - Last Filed: 07/14/25 07:00> (2) S/P evacuation of hematoma: Status: Acute <Tasha Torres - Last Filed: 07/14/25 07:00> Assessment and Plan: 89 yo male with PMH of mechanical AVR on coumadin, HTN, and acute anemia due to post surgical bleeding requiring 2x transfusions, s/p excision of chronic hematoma of L thigh and recurrent hematoma of L thigh. He reported one episode of pain in the morning but is otherwise doing well. Continue dressing changes every other day, with a request to change on Friday if he is to be discharged that day. Continue diet as tolerated and ambulation Discharge date is tentatively on Friday. <Tasha Torres - Last Filed: 07/14/25 07:00> 89 yo male with PMH of mechanical AVR on coumadin, HTN, and acute anemia due to post surgical bleeding requiring 2x transfusions, s/p excision of chronic hematoma of L thigh and recurrent hematoma of L thigh. He reported one episode of pain in the morning but is otherwise doing well. Continue dressing changes every other day, with a request to change on Friday if he is to be discharged that day. Continue diet as tolerated and ambulation Discharge date is tentatively on Friday. Patient feeling much improved. Did have some pain requiring pain medication during the night but generally feels well. No evidence of recurrent VT. No evidence of recurrent bleeding. Continue coumadin 6 mg p.o. daily as per cardiology Dressing changed planned for tomorrow prior to discharge. He will follow up in office on Friday dressing change. He may shower with Tegaderm over dressing <Paddy Kendall MD - Last Filed: 07/14/25 07:46> Time Spent With Patient Time: Total time managing care of this patient today ____ minutes. <Tasha Torres - Last Filed: 07/14/25 07:00> Quality Stroke Does the patient have a stroke diagnosis?: No <Tasha Torres - Last Filed: 07/14/25 07:00> VTE Prior VTE?: No <Tasha Torres - Last Filed: 07/14/25 07:00> VTE Risk Level:: Surgical - moderate <Tasha Torres - Last Filed: 07/14/25 07:00> VTE Device Contraindication: N/A - Device Ordered <Tasha Torres - Last Filed: 07/14/25 07:00> VTE Drug Contraindication: Treatment Not Indicated <Tasha Torres - Last Filed: 07/14/25 07:00>
[2025-07-14 07:25] LABS: Hematocrit 23.7 % (42.0-52.0); Hemoglobin 7.7 g/dl (14.0-18.0); Mean Corpuscular HGB Conc 32.5 g/dl (31.0-36.0); Mean Corpuscular Hemoglobin 30.6 pg (27.0-33.0); Mean Corpuscular Volume 94.0 fL (80.0-98.0); NRBC Abs Auto 0.030 X10*3/uL (0.0-0.012); NRBC Pct Auto 0.5 /100WBC (0.0-0.2); Platelet Count 178 X10*3/uL (160-400); Red Blood Count 2.52 X10*6/uL (4.60-5.80); White Blood Count 6.1 X10*3/uL (4.8-10.8)
[2025-07-14 07:28] LABS: INTERNATIONAL NORM RATIO 1.9 (0.9-1.1); Prothrombin Time 21.9 SEC (10.9-12.4)
[2025-07-14 08:00] VITALS: BP 177/75; PULSE 74; RESP 20; TEMP 36.4; O2SAT 99
[2025-07-14] MEDS: PT OWN (Rosuvastatin 40 mg tablet) 40 EACH PO (09:21)
[2025-07-14 11:38] VITALS: BP 127/54; PULSE 66; RESP 20; TEMP 36.6; O2SAT 95
--- NOTE | 2025-07-14 12:49 | HO.PM.IMPN ---
Subjective Subjective Date of Service: 07/14/25 Interval History: Feeling well No bleeding, no acute events overnight Pain well controlled Still some swelling in RLE Review of Systems Review of Systems: Yes all other systems are reviewed and are negative Physical Exam Exam: Exam: General: AOx3, no acute distress Resp: CTA bilaterally CVS: Irregularly irregular rhythm, +mechanical click GI: +BS, NT, no distention Skin: Warm, dry Neuro: Cranial nerves II-XII grossly intact bilaterally. Motor grossly intact bilaterally Extremities: 1+ left leg pitting edema at ankle. Psych: Appropriate affect Vital Signs: Vital Signs: Last Vital Signs Temp 97.9 F 07/14/25 11:38 Pulse 66 07/14/25 11:38 Resp 20 07/14/25 11:38 BP 127/54 L 07/14/25 11:38 Pulse Ox 95 07/14/25 11:38 O2 Del Method Room Air 07/14/25 11:38 O2 Flow Rate 3 07/04/25 01:40 BMI result Body Mass Index 28.0 Objective Data Active Medications Albuterol Sulfate (Albuterol Sulfate 90 Mcg 8 Gm Inhaler) 2 puff INHALE RQ6H PRN PRN Reason: shortness of breath or wheezing Doxazosin Mesylate (Doxazosin Mesylate 2 Mg Tablet) 4 mg PO BEDTIME [facility]; Protocol Last Admin: 07/13/25 21:43 Dose: 4 mg Documented By: BARBI Finasteride (Finasteride 5 Mg Tablet) 5 mg PO DAILY [facility] Last Admin: 07/14/25 09:21 Dose: 5 mg Documented By: RADHA Hydromorphone HCl (Hydromorphone Hcl 0.5 Mg/0.5 Ml Syringe) 0.5 mg IVPUSH Q3H PRN; Protocol PRN Reason: Pain, Severe (Pain Scale 7-10) Last Admin: 07/14/25 02:15 Dose: 0.5 mg Documented By: BARBI Metoprolol Tartrate (Metoprolol Tartrate 50 Mg Tablet) 50 mg PO BID [facility]; Protocol Last Admin: 07/14/25 09:21 Dose: 50 mg Documented By: RADHA Pt Own (Rosuvastatin (40 Mg Tablet)) 40 mg PO DAILY [facility] Last Admin: 07/14/25 09:21 Dose: 40 mg Documented By: RADHA Ondansetron HCl (Ondansetron Hcl 4 Mg/2 Ml Vial) 4 mg IVPUSH QID PRN PRN Reason: Nausea Warfarin Sodium (Warfarin Sodium 6 Mg Tablet) 6 mg PO DAILY@1800 [facility] Last Admin: 07/13/25 18:16 Dose: 6 mg Documented By: MANUEL Labs 07/14/25 07:16 07/10/25 12:04 Labs: Laboratory Results - last 24 hr 07/14/25 07:16 MCV 94.0 MCH 30.6 MCHC 32.5 RDW 22.4 H Plt Count 178 MPV 11.0 Absolute Nucleated RBC 0.030 H Nucleated RBC % (auto) 0.5 H PT 21.9 H INR 1.9 H Assessment and Plan (1) Postoperative anemia due to acute blood loss: Status: Acute Plan This is a 89-year-old male with a history of mechanical aortic valve, atrial fibrillation on anticoagulation with Coumadin, hypertension, 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 who recently underwent resection of left hip mass and presented to the emergency department with bleeding found to have hematoma and acute bleeding of the surgical site status post hematoma evacuation and ligation of arterial bleeding site hospital course complicated by recurrent bleeding requiring returning to the OR 06/30, 07/02, 07/04 Acute blood loss anemia due to hematoma from left hip surgical site (initially had left hip mass removed 06/27) s/p hematoma evacuation 06/30 and repeat cauterizations on 07/02 and 07/04 due to recurrent bleeding Pt with h/o transfusion reaction (fever and urticaria per blood bank); requires premedication with Tylenol and Bendryl prior to transfusions Transfused one unit PRBCs on 07/01 and again on 07/02 H/H now stable Mechanical aortic valve with subtherapeutic INR Anticoagulation has been intermittently on hold during stay Cardiology consulted, recommend resuming Coumadin without Lovenox bridge; pt understands risks regarding his mechanical valve INR has remained persistently low for several days; discussed with pharmacy and Coumadin increased to 6mg with good response INR currently improved to 1.9; per cardiology, goal is 2.0-2.5 Pt should continue on coumadin 6mg daily once discharged and follow up with INR clinic for Coumadin management Follow INR daily Ventricular tachycardia, resolved 36 beats overnight on 07/09, no repeat episodes; pt asymptomatic Metoprolol increased to 50 mg bid per Cardiology Cardiology following Chronic atrial fibrillation Continue metoprolol 50mg bid Coumadin as above Right arm pain/heaviness, numbness and tingling; resolved Sudden onset on the evening of 07/01/2025 Neuro exam reassuring, no focal deficits noted CT of head negative for acute abnormality Currently back to baseline Likely musculoskeletal due to acute intervention during rapid response for hypotension Thrombocytopenia Appears chronic but platelet count has improved to 209 BPH Continue doxazosin, finasteride Hypertension BP meds placed on hold for hypotension started on BB for tachycardia lisinopril, lasix and aldactone have been on hold Monitor blood pressure closely and resume antihypertensives as necessary HLD Continue statin Pt appears hemodynamically stable and INR should be therapeutic by tomorrow. If so, pt should continue on warfarin 6 mg daily with follow up with INR Clinic for careful monitoring and dosage adjustment as necessary. Will sign off for now. Quality Stroke Does the patient have a stroke diagnosis?: No VTE Prior VTE?: No VTE Risk Level:: Surgical - moderate VTE Device Contraindication: N/A - Device Ordered VTE Drug Contraindication: Treatment Not Indicated
[2025-07-14 15:36] VITALS: BP 142/61; PULSE 64; RESP 16; TEMP 36.9; O2SAT 96
[2025-07-14 20:00] VITALS: BP 150/71; PULSE 69; RESP 16; TEMP 36.7; O2SAT 97
[2025-07-15] VITALS: BP 147/67; PULSE 64; RESP 18; TEMP 36.9; O2SAT 98
[2025-07-15 03:56] VITALS: BP 138/64; PULSE 59; RESP 16; TEMP 36.8; O2SAT 96
[2025-07-15 07:13] LABS: INTERNATIONAL NORM RATIO 2.1 (0.9-1.1); Prothrombin Time 23.7 SEC (10.9-12.4)
[2025-07-15 07:43] VITALS: BP 152/64; PULSE 69; RESP 18; TEMP 36.4; O2SAT 97
[2025-07-15] MEDS: PT OWN (Rosuvastatin 40 mg tablet) 40 EACH PO (08:00)
--- NOTE | 2025-07-15 08:26 | MHC.CM.PN ---
Patient has been medically cleared for dc to home today, self care. CM met with Patient at bedside and addressed IMM with him, providing Patient with the original and a copy has been placed on the chart.
--- NOTE | 2025-07-18 10:59 | P.DS_ITS ---
DS: Providers Provider Date of Service: 07/15/25 Date of admission: 06/30/25 02:21 Date of discharge: 07/15/25 Primary care physician: Unknown Physician Admitting clinician: Paddy Kendall Attending physician on admission: Paddy Kendall Consults: 06/30/25 11:10 Consult to Hospitalist Routine Comment: Consulting Provider: [facility] [place] [facility] Reason For Exam: Hematoma, A fib, med management 07/04/25 07:26 Consult to Cardiology Routine Consulting Provider: [facility] Reason for consultation: Recurrent bleeding, mech aortic valve, how long to hold anticoagulation Attending physician on discharge: Paddy eKndall DS: Diagnosis Discharge Diagnosis (1) Postoperative anemia due to acute blood loss: Status: Acute DS: Summary Hospital Course Hospital Course: Admission HPI 89 year old male presenting with a past medical history of atrial fibrillation, hypertension, hypercholesterolemia, status post aortic valve replacement on Coumadin recently undergoing an excision of a left hip mass earlier this week. Pathology revealed a organized clot. Postoperatively he developed immediate swelling with bleeding from the incision. A pressure dressing was applied however over the past 24 hours he reports increased bleeding which has soaked through the dressings onto his sheets. He presents emergency room for further evaluation. A CT of the left hip was performed which revealed a large hematoma with a blush suggestive of ongoing bleeding. He is admitted to the surgical service for further management. Has any significant pain. He last took the Coumadin yesterday as usual. 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 FADI drain was left in place an attempt to prevent further hematoma formation. He tolerated this well and was transferred to the telemetry unit for continued management. His warfarin was restarted On POD 1 evacuation hematoma, overall doing well, some discomfort FADI output 120 cc of dark blood, remain patent. No strike through on dressings. H&H was trending down now 7.1/20.4, medicine ordered for transfusion of packed red blood cells. Later that day and an episode of decreased vision, felt blood pressure dropping, BP was checked 102/51, repeat H&H 6.8/20 he was started on IV fluids. The drain was intact with minimal output and there was no evidence of ongoing bleeding. Again later that day having some muscle aching around the knee blood pressure now 98/60, mild swelling of the incision dark blood and FADI. POD to patient having increased p ain bleeding from FADI drain overnight, now fresh blood. Patient agreed for reexamination under anesthesia to control this active bleeding. On 07/02 the patient was brought to the OR again, the incision was reopened another large clot was removed, some small active bleeding sites were clipped and tied the wound was vigorously irrigated. There was again closed with a FADI drain and nylon sutures. On re-evaluation on 07 03 patient have an increased swelling of the incision site after receiving Lovenox, Coumadin was held. There was some clot in the FADI that was able to be milked out. On 07/04 patient again developed for rebleeding with increased output FADI felt a pop when getting out of the chair from the bed and felt that 1 of his sutures may it popped. Again requiring re- exploration of the bleeding source. He was again brought to the operating room on 07/04, the incision was opened, drain was removed another large clot was evacuated from the incision, some areas of active bleeding were identified in the superior aspect of the incision which were again ligated with sutures. There was no attempt to close the incision, the wound was packed with iodine soaked Kerlix and dressed with gauze, ABD, Elastoplast pressure dressing. On 07/05 patient doing well, continuing to hold anticoagulation, Cardiology was consulted for maintenance of anticoagulation due to patient's mechanical valve. Overall doing well some pain at the incision site otherwise felt well, H&H stable but low. Coumadin has been resumed.. On 07/06, patient voluntarily requesting to hold Coumadin due to his fear of recurrent bleeding. There was some bloody output from the dressing, no pain. Dressings were changed there was some bloody discharge noted, but no active bleeding was not identified with dressing change. Surgicel was used with the new dressing and packing. Eight patient feeling better today, Coumadin has been held, per cardiology we will resume Coumadin without Lovenox bridge, his current INR was 1.3. We will remaining daily wound care, there was no evidence of active bleeding. On 07/07, patient stable no pain, no bleeding now passing large bowel movements. Restart Coumadin at 4 mg daily per patient's request. H&H remained stable hemoglobin 7, dressing changed with Xeroform followed by wet-to-dry fluff gauze ABD last 2+, we continued Coumadin. 07/09, patient overall doing well no signs of bleeding or new hematoma, continue with daily wound care, having some skin irritation due to the tape so attempts were made to use less tape to protect the skin integrity. On 07/10, patient had an episode of V-tach overnight, INR 1.2. Hemoglobin stable, hospitalist recommending increasing dose of Coumadin. Continuing daily dressing changes as above. On 07/11, Coumadin was increased to 5 mg with 1 bridging dose of 7 mg, H and H remained stable. 07/12, patient doing well not experiencing pain. Ambulating without issue. INR trending up, 1.5 with a goal of 2.0-2.5 per cardiology. Continuing dressing changes, started exploring options that would allow for less frequent dressing changes to plan for eventual discharge. 07/13, patient continues to do well, dressing no longer having active bleeding, waiting for Cardiology clearance, INR remains 1.5. On 07/14, patient doing well experiencing occasional pain. Wound appears to be healing well, no active bleeding. INR now 1.7, continuing Coumadin per Cardiology, no evidence of recurrent V-tach, he is cleared for discharge on the cardiology side of things. Patient felt ready for discharge, dressings were changed, Tegaderm juice lied over to allow the patient to shower at home. He was discharged in stable condition, the left hip wound remains open, no evidence of recurrent bleeding or infection, plan to follow-up in the office on Friday for wound care, he is to continue with Coumadin 6 mg daily per Cardiology. Patient declined VNA services due to the schedule. Status at Discharge Functional status at discharge: uses cane/walker Overall status at discharge: patient is progressing back to baseline Time Attestation Discharge Coordination Time (in mins): 40 Quality: Safe Use of Opioids Does Pt have an Active Cancer Diagnosis on the Problem List?: No Quality: Stroke Does the patient have a stroke diagnosis?: No Physical Exam Vital Signs: Vital Signs: Last Vital Signs Temp 97.6 F 07/15/25 07:43 Pulse 69 07/15/25 07:43 Resp 18 07/15/25 07:43 BP 152/64 H 07/15/25 07:43 Pulse Ox 97 07/15/25 07:43 O2 Del Method Room Air 07/15/25 07:43 O2 Flow Rate 3 07/04/25 01:40 BMI result Body Mass Index 28.0 Const: General: comfortable and no acute distress Orientation/consciousness: patient oriented x3 Resp: Effort & Inspection: normal respiratory effort and able to speak in complete sentences Neuro: General: patient oriented x3 Extrem: Other: 5 in open wound at the original surgical site, left hip. No evidence of active bleeding, no purulent discharge. Mildly tender to palpation appears to be good granulation tissue. DS: Data Data Completed and Pending Completed studies during hospitalization [Text1]: Procedures Introduction of Remdesivir Anti-infective into Peripheral Vein, Percutaneous Approach, [employer] 5 (11/02/21) Transfusion of Nonautologous Globulin into Peripheral Vein, Percutaneous Approach (01/10/25) Discharge Plan Discharge Anticipated Discharge Date/Time: 07/15/25 08:12 Patient Disposition: Home, Self-Care Discharge Diagnosis: Hematoma left leg Referrals: Paddy Kendall MD [Physician, General Surgery] - 1 Day Referral Note: DRESSING CHANGES AND FOLLOW-UP Aruna Corado PA [Physician [facility], Internal Medicine] - 08/08/25 10:00 am Referral Note: NEW PRIMARY CARE APPOINTMENT Discharge Medications: Continued warfarin 4 mg tablet 4 mg PO DAILY@1800 Qty: 90 1RF Protocol: Dose Management Condition: Friday (Week One) Dose/Route: 4 mg Instruction: 1 x 4 mg tablet Condition: Friday Dose/Route: 6 mg Instruction: 2 x 3 mg tablets Condition: Friday Dose/Route: 4 mg Instruction: 1 x 4 mg tablet Condition: Friday Dose/Route: 4 mg Instruction: 1 x 4 mg tablet Condition: Dose/Route: 4 mg Instruction: 1 x 4 mg tablet Condition: Friday Dose/Route: 4 mg Instruction: 1 x 4 mg tablet Condition: Friday Dose/Route: 4 mg Instruction: 1 x 4 mg tablet Condition: Friday (Week Two) Dose/Route: 4 mg Instruction: 1 x 4 mg tablet Condition: Friday Dose/Route: 4 mg Instruction: 1 x 4 mg tablet Condition: Friday Dose/Route: 4 mg Instruction: 1 x 4 mg tablet Condition: Friday Dose/Route: 4 mg Instruction: 1 x 4 mg tablet Condition: Dose/Route: 4 mg Instruction: 1 x 4 mg tablet Condition: Friday Dose/Route: 4 mg Instruction: 1 x 4 mg tablet Condition: Friday Dose/Route: 4 mg Instruction: 1 x 4 mg tablet Protocol Text: Adjustment Start Date: Friday07/18/25 INR Value: 1.9 INR Date: 07/18/25 Recheck Date: 07/20/25 Additional Instructions: take 6mg today then cont 4mg daily no greens , eat reds to raise rosuvastatin 40 mg tablet 40 mg PO DAILY Qty: 90 0RF hydromorphone [Dilaudid] 2 mg tablet 2 mg PO Q6H PRN (Reason: pain (scale score 7-10)) Qty: 15 0RF Rx Instructions: Partial Fill upon patient request. doxazosin 4 mg tablet 4 mg PO BEDTIME spironolactone 25 mg tablet 25 mg PO DAILY finasteride 5 mg tablet 5 mg PO DAILY albuterol sulfate 90 mcg/actuation HFA aerosol inhaler 2 puff inhalation Q6H PRN (Reason: shortness of breath or wheezing) Qty: 8.5 0RF lisinopril 20 mg tablet 40 mg PO DAILY furosemide 40 mg tablet 40 mg PO DAILY Patient Comments: PT STATES 40 MG DAILY No Action warfarin 3 mg tablet 3 mg PO DAILY Protocol: Dose Management Condition: Friday (Week One) Dose/Route: 4 mg Instruction: 1 x 4 mg tablet Condition: Friday Dose/Route: 6 mg Instruction: 2 x 3 mg tablets Condition: Friday Dose/Route: 4 mg Instruction: 1 x 4 mg tablet Condition: Friday Dose/Route: 4 mg Instruction: 1 x 4 mg tablet Condition: Dose/Route: 4 mg Instruction: 1 x 4 mg tablet Condition: Friday Dose/Route: 4 mg Instruction: 1 x 4 mg tablet Condition: Friday Dose/Route: 4 mg Instruction: 1 x 4 mg tablet Condition: Friday (Week Two) Dose/Route: 4 mg Instruction: 1 x 4 mg tablet Condition: Friday Dose/Route: 4 mg Instruction: 1 x 4 mg tablet Condition: Friday Dose/Route: 4 mg Instruction: 1 x 4 mg tablet Condition: Friday Dose/Route: 4 mg Instruction: 1 x 4 mg tablet Condition: Dose/Route: 4 mg Instruction: 1 x 4 mg tablet Condition: Friday Dose/Route: 4 mg Instruction: 1 x 4 mg tablet Condition: Friday Dose/Route: 4 mg Instruction: 1 x 4 mg tablet Protocol Text: Adjustment Start Date: Friday07/18/25 INR Value: 1.9 INR Date: 07/18/25 Recheck Date: 07/20/25 Additional Instructions: take 6mg today then cont 4mg daily no greens , eat reds to raise Discharge Orders: Discharge Order (Routine); Ordered 07/15/25 Ordered By: Paddy Kendall Diet: Advance to usual diet Activity on Discharge: As tolerated Stand Alone Forms: Patient Portal Discharge page Print Language: Slovenian Activity Restrictions/Additional Instructions: Please provide patient with material for dressing changes including large Tegaderm x4, fluff gauze, silver alginate pad and Elastoplast tape. Care Plan Goals: Returned to normal activity Health Concerns: Hematoma left leg on anticoagulation Plan of Treatment: Drainage of hematoma Assessment: Hematoma left leg Discharge Date/Time: 07/15/25 12:14
== END 2025-07-15 12:14 | disposition home or self-care (01) | DRG 908 ==
LOC: HO.ED 06-30 02:34 → HO.EDOVER 06-30 03:42 → HO.S3 06-30 11:23 → HO.IMC 07-05 10:30 → HO.EDOVER 07-05 10:30
PROVIDERS: Physician Assistant Medical; Student in an Organized Health Care Education/Training Program; Admitting Provider Surgery; Emergency Provider Emergency Medicine; Visit Provider Surgery
PROC: 0Y3D0ZZ Control Bleeding in Left Upper Leg, Open Approach (ICD-10-PCS; principal; 2025-06-30 08:30)
PROC: 0JCM0ZZ Extirpation of Matter from Left Upper Leg Subcutaneous Tissue and Fascia, Open Approach (ICD-10-PCS; principal; 2025-07-02 08:00)
DX: L76.32 Postprocedural hematoma of skin and subcutaneous tissue following other procedure (principal); D62 Acute posthemorrhagic anemia; I47.20 Ventricular tachycardia, unspecified; L76.22 Postprocedural hemorrhage of skin and subcutaneous tissue following other procedure; D69.6 Thrombocytopenia, unspecified; R79.1 Abnormal coagulation profile; I10 Essential (primary) hypertension; N40.0 Benign prostatic hyperplasia without lower urinary tract symptoms; I95.9 Hypotension, unspecified; R20.0 Anesthesia of skin; Y83.8 Other surgical procedures as the cause of abnormal reaction of the patient, or of later complication, without mention of misadventure at the time of the procedure; E78.5 Hyperlipidemia, unspecified; Z95.2 Presence of prosthetic heart valve; Z79.01 Long term (current) use of 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; Z79.899 Other long term (current) drug therapy
CPT/HCPCS: 36415; 70450; 73701; 80048; 80053; 82947; 83735; 85007; 85014; 85018; 85025; 85027; 85610; 85730; 86850; 86900; 86901; 86923; 93005; 99221; 99285; C1889; C9250; J0131; J0690; J1100; J1171; J1200; J1650; J2003; J2004; J2371; J2405; J2704; J2795; J3010; J7120; P9016

== ENCOUNTER → 2025-06-30 00:10 | Outpatient (BNV) | payer MEDICARE, OTHER, SELFPAY | PROVIDERS: Emergency Provider Emergency Medicine; Visit Provider Radiology Diagnostic Radiology | DX: M79.81 Nontraumatic hematoma of soft tissue (principal) | CPT/HCPCS: 73701 ==

== ENCOUNTER 2025-06-30 02:21 | Outpatient (BNV) | payer MEDICARE, OTHER, SELFPAY | END 2025-07-06 18:35 | PROVIDERS: Admitting Provider Surgery; Emergency Provider Emergency Medicine; Visit Provider Internal Medicine | DX: I48.91 Unspecified atrial fibrillation (principal); I45.9 Conduction disorder, unspecified | CPT/HCPCS: 93010 ==

== ENCOUNTER → 2025-06-30 02:21 | Outpatient (BNV) | payer MEDICARE, OTHER, SELFPAY | PROVIDERS: Admitting Provider Surgery; Emergency Provider Emergency Medicine; Visit Provider Surgery | DX: R22.42 Localized swelling, mass and lump, left lower limb (principal); Z79.01 Long term (current) use of 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; M96.841 Postprocedural hematoma of a musculoskeletal structure following other procedure | CPT/HCPCS: 27301; 99222 ==

== ENCOUNTER → 2025-06-30 02:21 | Outpatient (BNV) | payer MEDICARE, OTHER, SELFPAY | PROVIDERS: Admitting Provider Surgery; Emergency Provider Emergency Medicine; Visit Provider Internal Medicine | DX: Z95.2 Presence of prosthetic heart valve (principal); D62 Acute posthemorrhagic anemia; T14.8XXA Other injury of unspecified body region, initial encounter; I48.0 Paroxysmal atrial fibrillation | CPT/HCPCS: 99232; 99233 ==

== ENCOUNTER 2025-06-30 09:46 | Outpatient (BNV) | payer MEDICARE, OTHER, SELFPAY | END 2025-07-02 10:05 | PROVIDERS: Admitting Provider Surgery; Emergency Provider Emergency Medicine; Visit Provider Internal Medicine Cardiovascular Disease | DX: R00.0 Tachycardia, unspecified (principal) | CPT/HCPCS: 93010 ==

== ENCOUNTER 2025-06-30 09:46 | Outpatient (BNV) | payer MEDICARE, OTHER, SELFPAY | END 2025-07-01 18:45 | PROVIDERS: Admitting Provider Surgery; Emergency Provider Emergency Medicine; Visit Provider Radiology Vascular & Interventional Radiology | DX: R53.1 Weakness (principal) | CPT/HCPCS: 70450 ==

== ENCOUNTER 2025-06-30 09:46 | Outpatient (BNV) | payer MEDICARE, OTHER, SELFPAY | END 2025-07-01 18:43 | PROVIDERS: Admitting Provider Surgery; Emergency Provider Emergency Medicine; Visit Provider Internal Medicine Cardiovascular Disease | DX: I48.91 Unspecified atrial fibrillation (principal); I44.7 Left bundle-branch block, unspecified | CPT/HCPCS: 93010 ==

== ENCOUNTER → 2025-06-30 09:46 | Outpatient (BNV) | payer MEDICARE, OTHER, SELFPAY | PROVIDERS: Admitting Provider Surgery; Emergency Provider Emergency Medicine; Visit Provider Physician Assistant Medical | DX: Z95.2 Presence of prosthetic heart valve (principal); T14.8XXA Other injury of unspecified body region, initial encounter | CPT/HCPCS: 99223; 99232; 99233; 99499 ==

== ENCOUNTER 2025-07-17 04:55 | Emergency (ER) | payer MEDICARE, OTHER, SELFPAY ==
[2025-07-17 05:01] VITALS: BP 147/75; PULSE 89; RESP 16; TEMP 36.7; O2SAT 99; BMI 27.4
[2025-07-17 05:17] LABS: Hematocrit 26.1 % (42.0-52.0); Hemoglobin 8.6 g/dl (14.0-18.0); Imm Gran Abs Auto 0.06 X10*3/uL (0.00-0.03); Imm Gran Pct Auto 1.0 % (0.0-0.4); Lymphocytes Absolute Auto 2.4 X10*3/uL (1.2-4.9); MANUAL DIFF FLAG SCAN; Mean Corpuscular HGB Conc 33.0 g/dl (31.0-36.0); Mean Corpuscular Hemoglobin 31.2 pg (27.0-33.0); Mean Corpuscular Volume 94.6 fL (80.0-98.0); NRBC Abs Auto 0.020 X10*3/uL (0.0-0.012); NRBC Pct Auto 0.3 /100WBC (0.0-0.2); Platelet Count 185 X10*3/uL (160-400); Red Blood Count 2.76 X10*6/uL (4.60-5.80); SCAN SMEAR FLAG 1; White Blood Count 6.2 X10*3/uL (4.8-10.8)
[2025-07-17 05:30] LABS: Alanine Aminotransferase 18 U/L (0-40); Albumin Level 4.3 g/dL (3.5-5.0); Alkaline Phosphatase 61 U/L (39-117); Anion Gap 14 (12-20); Aspartate Amino Transferase 37 U/L (5-37); Blood Urea Nitrogen 18 mg/dL (9-16); Calcium 9.0 mg/dL (8.4-10.2); Carbon Dioxide 25 mmol/L (22-29); Chloride 105 mmol/L (96-108); Creatinine Clr Calc Pharmacy 102.7; Estimated Glomerular Filt Rate > 60; Potassium 4.0 mmol/L (3.3-5.1); Sodium 140 mmol/L (135-145); Total Protein 6.6 g/dL (6.5-8.0)
[2025-07-17 05:48] LABS: INTERNATIONAL NORM RATIO 2.3 (0.9-1.1); Prothrombin Time 25.9 SEC (10.9-12.4)
--- NOTE | 2025-07-17 06:30 | ED.GENADULT ---
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 He thought the dressing was bleeding tonight it was discolored so he called surgeon auto service station attendant and they advised he come to ED. He has no fevers, feels it is getting better and better. Has wound care appointment on Friday. MD complaint: wound issue Onset (ago): day(s) (1) Location: left and lower extremity Radiation: non-radiation Severity: mild Relieving factors: none Exacerbating factors: movement Associated symptoms: denies other symptoms Treatments prior to arrival: none Related Data Home Medications ?Medication ?Instructions ?Recorded ?Confirmed doxazosin 4 mg tablet 4 mg PO BEDTIME 04/17/21 06/30/25 spironolactone 25 mg tablet 25 mg PO DAILY 03/24/25 06/30/25 furosemide 40 mg tablet 40 mg PO DAILY 06/13/25 06/30/25 lisinopril 20 mg tablet 40 mg PO DAILY 06/13/25 06/30/25 finasteride 5 mg tablet 5 mg PO DAILY 06/30/25 06/30/25 warfarin 1 mg tablet 5 mg PO SUTUWETHSA@1800 06/30/25 06/30/25 warfarin 4 mg tablet 4 mg PO MOFR@1800 06/30/25 06/30/25 Previous Rx's ?Medication ?Instructions ?Recorded albuterol sulfate 90 mcg/actuation 2 puff inhalation Q6H PRN 01/05/25 aerosol inhaler shortness of breath or wheezing #8.5 grams warfarin 4 mg tablet 4 mg PO DAILY@1800 #90 tabs 06/06/25 rosuvastatin 40 mg tablet 40 mg PO DAILY #90 tabs 06/20/25 warfarin 1 mg tablet 1 mg PO DAILY #60 tabs 06/24/25 hydromorphone 2 mg tablet 2 mg PO Q6H PRN pain (scale score 06/27/25 (Dilaudid) 7-10) #15 tabs Allergies Allergy/AdvReac Type Severity Reaction Status Date / Time adhesive (ADHESIVE) Allergy Intermediate RASH, Verified 07/17/25 05:03 BLISTERS atenolol (Atenolol) Allergy Mild RASH Verified 07/17/25 05:03 oxycodone Allergy Mild Gastrointestinal Verified 07/17/25 05:03 Upset sotalol (Sotalol) Allergy Mild RASH Verified 07/17/25 05:03 tamsulosin Allergy Unknown reaction Verified 07/17/25 05:03 unknown tramadol Allergy Unknown reaction Verified 07/17/25 05:03 unknown atorvastatin (From Lipitor) AdvReac Severe SEVERE Verified 07/17/25 05:03 ACHES AND PAINS Review of Systems Review of Systems: Constitutional : No Fever, No Chills, Cardiovascular : No Chest Pain, No SOB Respiratory : No Dyspnea Gastrointestinal : No abdominal pain Musculoskeletal : No Joint Swelling Skin : No rash, positive skin wound Neuro : No Weakness, No Numbness Yes all other systems are reviewed and are negative [facility] Past Medical History Medical History (Updated 07/17/25 @ 06:31 by Cielo Ojeda DO) Aortic valve disease Eye injury Prosthetic eye globe Pneumonia Osteoarthritis Anemia Neuropathy Guillain-Axtell syndrome HTN (hypertension) Leukopenia Atrial fibrillation Surgical History (Updated 07/05/25 @ 11:12 by Ahmet Lucas PA-C) Hx of enucleation of right eyeball Hx of cataract extraction H/O colonoscopy Hx of aortic valve replacement History of cholecystectomy Social History Social History Household Members: Spouse Housing: House Are you a primary hospice care consultant to a significant other at home: No Do you presently have visiting nurse or other home services: No Alcohol intake: current Alcohol intake frequency: holidays/special occasions only Alcohol type: wine Comment: Declines bed/ chair alarm- oob independently with walker Patient Tobacco Use Status: Never used Tobacco Smoked in Last 30 Days: No Use of substances other than those prescribed or required for medical reasons: No Advance Directives: No Advance Directives Information Provided: Yes Do you have a plan to hurt others: No Plan service: No Current occupational status: retired Current occupation: retired Current occupational exposures/hazards: No Physical Exam ED Vital Signs: Vital Signs - 24 hr 07/17/25 05:01 Temperature 98.0 F Pulse Rate 89 Respiratory Rate 16 Blood Pressure 147/75 H Pulse Oximetry 99 Oxygen Delivery Method Room Air BMI result Body Mass Index 27.4 Appearance: Alert. Oriented X3. No acute distress. Eyes: Pupils equal, round and reactive to light. ENT: Pharynx normal. Neck: Normal inspection. CVS: Pulses normal. Respiratory: No respiratory distress. Abdomen: Soft and nontender. Skin: Skin warm and dry. Normal skin color. Extremities: ankle trace pitting edema, L hip healing wound alginate is saturated with ss fluid but no purulence, wound edge is clean, no redness and no fluctuance Neuro: Oriented X 3. No motor deficit. No sensory deficit. Medical Decision Making Medical Decision Making [facility] Narrative: 89 yo male with PMH of AVR - mechanical on coumadin, PAF, anemia, HTN, GBS here with ?blood from L known hematoma unclear if the ss fluid was blood at home so he came to get checked out. Dressing was wet. He is very worried dressing will not be supportive enough will take picture and send to surgery, no bleeding and wound looks well healing. Will obtain CBC. Differential Diagnosis Differential Diagnoses: The differential diagnosis associated with the presentation includes needs dressing changed, alginate reaction, seroma Admission/Observation Consideration of admission/observation: Escalation of care including admission/observation considered labs stable can be DC Consult Healthcare Provider Management of the patient was discussed with: [employer] discussed labs and sent picture of area to Dr. Eliana easley to follow up in clinic tomorrow, replace silver alginate, sterile dressing - tegaderm and benzoin Lab Data [facility] Lab Attestation statement: I reviewed the patient's lab results. 07/17/25 05:10 07/17/25 05:10 Labs: Lab Results 07/17/25 Range/Units 05:10 WBC 6.2 (4.8-10.8) X10*3/uL RBC 2.76 L (4.60-5.80) X10*6/uL Hgb 8.6 L (14.0-18.0) g/dl Hct 26.1 L (42.0-52.0) % MCV 94.6 (80.0-98.0) fL MCH 31.2 (27.0-33.0) pg MCHC 33.0 (31.0-36.0) g/dl RDW 22.5 H (11.0-16.0) % Plt Count 185 (160-400) X10*3/uL MPV 11.0 (9.4-12.4) fL Immature Gran % (Auto) 1.0 H (0.0-0.4) % Neut % (Auto) 22.5 L (45-73) % Lymph % (Auto) 39.1 (20-40) % Dale % (Auto) 36.3 H (2-11) % Eos % (Auto) 0.8 (0-4) % Baso % (Auto) 0.3 (0-2) % Lymph # (Auto) 2.4 (1.2-4.9) X10*3/uL Dale # (Auto) 2.3 H (0.1-1.2) X10*3/uL Eos # (Auto) 0.1 (0.0-0.4) X10*3/uL Baso # (Auto) 0.0 (0.0-0.2) X10*3/uL Abs Immat Gran (auto) 0.06 H (0.00-0.03) X10*3/uL Absolute Neuts (auto) 1.4 L (2.0-8.3) x10*3/uL Absolute Nucleated RBC 0.020 H (0.0-0.012) X10*3/uL Nucleated RBC % (auto) 0.3 H (0.0-0.2) /100WBC Smear Tech's Comments VERIFIED PT 25.9 H (10.9-12.4) SEC INR 2.3 H (0.9-1.1) Sodium 140 (135-145) mmol/L Potassium 4.0 (3.3-5.1) mmol/L Chloride 105 (96-108) mmol/L Carbon Dioxide 25 (22-29) mmol/L Anion Gap 14 (12-20) BUN 18 H (9-16) mg/dL Creatinine 0.63 (0.5-1.4) mg/dL Estim Creat Clear Calc 102.7 Estimated GFR > 60 Random Glucose 147 H (60-115) mg/dL Calcium 9.0 (8.4-10.2) mg/dL Total Bilirubin 0.9 (0.0-1.0) mg/dL AST 37 (5-37) U/L ALT 18 (0-40) U/L Alkaline Phosphatase 61 (39-117) U/L Total Protein 6.6 (6.5-8.0) g/dL Albumin 4.3 (3.5-5.0) g/dL External Record Review External record reviewed: Inpatient record and Outpatient record Discharge Plan Discharge Clinical Impression: Change or removal of surgical wound dressing Patient Disposition: Home, Self-Care Instructions: Acute Wounds (ED) Additional Instructions: hemoglobin is stable at 8.6 which is great for you your INR is 2.3 please return at any time for issues with dressing it was packed with silver alginate and sterile dressing with tape please follow up in clinic tomorrow Prescriptions: No Action warfarin 4 mg tablet 4 mg PO DAILY@1800 Qty: 90 1RF Protocol: Dose Management Condition: Friday (Week One) Dose/Route: 4 mg Instruction: 1 x 4 mg milliliter Condition: Friday Dose/Route: 5 mg Instruction: 1 x 1 mg milliliter, 1 x 4 mg milliliter Condition: Friday Dose/Route: 5 mg Instruction: 1 x 1 mg milliliter, 1 x 4 mg milliliter Condition: Friday Dose/Route: 0 mg Instruction: 0 milliliters Condition: Dose/Route: 0 mg Instruction: 0 milliliters Condition: Friday Dose/Route: 0 mg Instruction: 0 milliliters Condition: Friday Dose/Route: 0 mg Instruction: 0 milliliters Condition: Friday (Week Two) Dose/Route: 0 mg Instruction: 0 milliliters Condition: Friday Dose/Route: 5 mg Instruction: 1 x 1 mg milliliter, 1 x 4 mg milliliter Condition: Friday Dose/Route: 5 mg Instruction: 1 x 1 mg milliliter, 1 x 4 mg milliliter Condition: Friday Dose/Route: 5 mg Instruction: 1 x 1 mg milliliter, 1 x 4 mg milliliter Condition: Dose/Route: 5 mg Instruction: 1 x 1 mg milliliter, 1 x 4 mg milliliter Condition: Friday Dose/Route: 5 mg Instruction: 1 x 1 mg milliliter, 1 x 4 mg milliliter Condition: Friday Dose/Route: 5 mg Instruction: 1 x 1 mg milliliter, 1 x 4 mg milliliter Protocol Text: Adjustment Start Date: Friday06/20/25 INR Value: 2.1 INR Date: 06/20/25 Recheck Date: 07/01/25 rosuvastatin 40 mg tablet 40 mg PO DAILY Qty: 90 0RF warfarin 1 mg tablet 1 mg PO DAILY Qty: 60 2RF Protocol: Dose Management Condition: Friday (Week One) Dose/Route: 4 mg Instruction: 1 x 4 mg milliliter Condition: Friday Dose/Route: 5 mg Instruction: 1 x 1 mg milliliter, 1 x 4 mg milliliter Condition: Friday Dose/Route: 5 mg Instruction: 1 x 1 mg milliliter, 1 x 4 mg milliliter Condition: Friday Dose/Route: 0 mg Instruction: 0 milliliters Condition: Dose/Route: 0 mg Instruction: 0 milliliters Condition: Friday Dose/Route: 0 mg Instruction: 0 milliliters Condition: Friday Dose/Route: 0 mg Instruction: 0 milliliters Condition: Friday ( Two) Dose/Route: 0 mg Instruction: 0 milliliters Condition: Friday Dose/Route: 5 mg Instruction: 1 x 1 mg milliliter, 1 x 4 mg milliliter Condition: Friday Dose/Route: 5 mg Instruction: 1 x 1 mg milliliter, 1 x 4 mg milliliter Condition: Friday Dose/Route: 5 mg Instruction: 1 x 1 mg milliliter, 1 x 4 mg milliliter Condition: Dose/Route: 5 mg Instruction: 1 x 1 mg milliliter, 1 x 4 mg milliliter Condition: Friday Dose/Route: 5 mg Instruction: 1 x 1 mg milliliter, 1 x 4 mg milliliter Condition: Friday Dose/Route: 5 mg Instruction: 1 x 1 mg milliliter, 1 x 4 mg milliliter Protocol Text: Adjustment Start Date: Friday06/20/25 INR Value: 2.1 INR Date: 06/20/25 Recheck Date: 07/01/25 hydromorphone [Dilaudid] 2 mg tablet 2 mg PO Q6H PRN (Reason: pain (scale score 7-10)) Qty: 15 0RF Rx Instructions: Partial Fill upon patient request. doxazosin 4 mg tablet 4 mg PO BEDTIME spironolactone 25 mg tablet 25 mg PO DAILY finasteride 5 mg tablet 5 mg PO DAILY warfarin 4 mg tablet 4 mg PO MOFR@1800 warfarin 1 mg tablet 5 mg PO SUTUWETHSA@1800 albuterol sulfate 90 mcg/actuation HFA aerosol inhaler 2 puff inhalation Q6H PRN (Reason: shortness of breath or wheezing) Qty: 8.5 0RF lisinopril 20 mg tablet 40 mg PO DAILY furosemide 40 mg tablet 40 mg PO DAILY Patient Comments: PT STATES 40 MG DAILY Print Language: Nepalese
[2025-07-17 06:35] VITALS: BP 146/65; PULSE 72; RESP 18; TEMP 36.6; O2SAT 96
[2025-07-17 06:37] VITALS: BP 146/65; PULSE 72; RESP 18; TEMP 36.6; O2SAT 96
== END 2025-07-17 06:38 | disposition home or self-care (01) ==
PROVIDERS: Emergency Provider Emergency Medicine
DX: Z48.01 Encounter for change or removal of surgical wound dressing (principal); I48.0 Paroxysmal atrial fibrillation; Z79.01 Long term (current) use of 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; I10 Essential (primary) hypertension; D64.9 Anemia, unspecified
CPT/HCPCS: 36415; 80053; 85025; 85610; 99283

== ENCOUNTER → 2025-07-18 08:55 | Outpatient (BNVA) | payer MEDICARE, OTHER, SELFPAY | PROVIDERS: Visit Provider Surgery | DX: Z51.81 Encounter for therapeutic drug level monitoring (principal) | CPT/HCPCS: 85610; 99211; 99212 ==

== ENCOUNTER 2025-07-18 09:32 | Outpatient (AMB) | payer MEDICARE, OTHER, SELFPAY ==
--- NOTE | 2025-07-18 09:53 | MHC.OFFVISCO ---
Intake Intake Visit Reasons: Anticoagulation Allergies adhesive (ADHESIVE) Allergy (Intermediate, Verified 07/18/25 09:36) RASH, BLISTERS atenolol (Atenolol) Allergy (Mild, Verified 07/18/25 09:36) RASH oxycodone Allergy (Mild, Verified 07/18/25 09:36) Gastrointestinal Upset sotalol (Sotalol) Allergy (Mild, Verified 07/18/25 09:36) RASH tamsulosin Allergy (Unknown, Verified 07/18/25 09:36) reaction unknown tramadol Allergy (Unknown, Verified 07/18/25 09:36) reaction unknown atorvastatin (From Lipitor) Adverse Reaction (Severe, Verified 07/18/25 09:36) SEVERE ACHES AND PAINS Medication List - Last Reconciled 07/18/25 by Key Salvador RN albuterol sulfate 90 mcg/actuation 2 puffs inhalation Q6H PRN doxazosin 4 mg PO BEDTIME finasteride 5 mg PO DAILY furosemide 40 mg PO DAILY hydromorphone (Dilaudid) 2 mg PO Q6H PRN lisinopril 40 mg PO DAILY rosuvastatin 40 mg PO DAILY spironolactone 25 mg PO DAILY warfarin 4 mg See Protocol PO DAILY@1800 Nursing Note INR 1.9-?? out of therapeutic range 2.5-3.5 previous inr was 2.3 on 07/17/25. pt states cardiology would like inr between 2.0-2.5 Medications and supplements reviewed Patient status: pt states recent surgery- hematoma left hip done 06/27/25- post op bleeding from hip wound- [place] [facility] [place] pt states had 3 more surgeries due to the bleeding pt states was d/c from hosp on 07/15/25. pt states was in the ed on 07/16/25 due to increased drainage- ed notes stated no bleeding, serous drainage present. Medications or supplements: reviewed with pt-no changes in medications Diet: appetite is good Denies any signs and symptoms of bleeding or clotting or unusual bruising Bleeding, bruising, clotting discussed - pt states very minimal bleeding from hip wound. serous drainage, has dressing change qod at md office Nutritional guidance given: no greens for 2-3 days Dose: pt states has been taking 4mg daily for several weeks. take 6mg today then cont 4mg daily pt has warfarin 4mg tabs and 3mg tabs only F/U INR Date : fri07/20/25?? Patient verbalizing understanding of instructions given. pcp office called with low inr/dosing and retest date. spoke to Anastasiia at 1030. 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 Illness/Depression: No Coding Level of Care Code Est Patient Level 2 Diagnoses Current use of anticoagulant therapy Z79.01 Assessment & Plan Assessment & Plan (1) Current use of anticoagulant therapy: Code(s): Z79.01 - residential (current) use of 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 Category: Medical Medications: New warfarin 3 mg See Protocol PO DAILY
[2025-07-18 09:54] LABS: Prothrombin Time Whole Bld POC 22.7 sec (11.1-13.5); ~PT, ~INR - Anti Coag Clinic 1.9 (0.9-1.1)
== END 2025-07-18 11:06 | disposition home or self-care (01) ==
LOC: HO.ACS 09:32
PROVIDERS: Visit Provider Internal Medicine Medical Oncology
DX: Z79.01 Long term (current) use of 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 (principal)

== ENCOUNTER → 2025-07-20 08:51 | Outpatient (BNVA) | payer MEDICARE, OTHER, SELFPAY | PROVIDERS: Visit Provider Surgery | DX: Z51.81 Encounter for therapeutic drug level monitoring (principal); Z79.01 Long term (current) use of 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; Z48.00 Encounter for change or removal of nonsurgical wound dressing | CPT/HCPCS: 85610; 99211 ==

== ENCOUNTER 2025-07-20 09:37 | Outpatient (AMB) | payer MEDICARE, OTHER, SELFPAY ==
[2025-07-20 09:52] LABS: Prothrombin Time Whole Bld POC 29.5 sec (11.1-13.5); ~PT, ~INR - Anti Coag Clinic 2.5 (0.9-1.1)
--- NOTE | 2025-07-20 10:02 | MHC.OFFVISCO ---
Intake Intake Visit Reasons: Anticoagulation Allergies adhesive (ADHESIVE) Allergy (Intermediate, Verified 07/20/25 09:43) RASH, BLISTERS atenolol (Atenolol) Allergy (Mild, Verified 07/20/25 09:43) RASH oxycodone Allergy (Mild, Verified 07/20/25 09:43) Gastrointestinal Upset sotalol (Sotalol) Allergy (Mild, Verified 07/20/25 09:43) RASH tamsulosin Allergy (Unknown, Verified 07/20/25 09:43) reaction unknown tramadol Allergy (Unknown, Verified 07/20/25 09:43) reaction unknown atorvastatin (From Lipitor) Adverse Reaction (Severe, Verified 07/20/25 09:43) SEVERE ACHES AND PAINS Medication List - Last Reconciled 07/20/25 by Shirin Simpson RN albuterol sulfate 90 mcg/actuation 2 puffs inhalation Q6H PRN doxazosin 4 mg PO BEDTIME finasteride 5 mg PO DAILY furosemide 40 mg PO DAILY hydromorphone (Dilaudid) 2 mg PO Q6H PRN lisinopril 40 mg PO DAILY rosuvastatin 40 mg PO DAILY spironolactone 25 mg PO DAILY warfarin 3 mg See Protocol PO DAILY warfarin 4 mg See Protocol PO DAILY@1800 Nursing Note NO CP,SOB,DIET/MED CHANGES,FALLS OR SX OF BLEEDING. CONTINUE 4MGM DAILY AND FOLLOW-UP ON 07/25/25 GOOD UNDERSTANDING OF DOSING INSTR. 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
--- OUTSIDE RECORDS SUMMARY | 2025-07-20 10:24 | XMS_ITS | Clinical Summary ---
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 Name Role Phone Milton Durán MD [...] Problem Noted Date Diagnosed Date Atherosclerosis of [place] ronary artery of [place] heart without angina pectoris 02/03/2017 Mixed hyperlipidemia [...] file Insurance MEDICARE PART A & B [facility] TOTAL CHOICE INDEMNITY MEDICARE PART A & B [facility] TOTAL CHOICE INDEMNITY MEDICARE PART A & B [facility] TOTAL CHOICE INDEMNITY MEDICARE PART A & B [facility] TOTAL CHOICE INDEMNITY MEDICARE PART A & B [facility] TOTAL CHOICE INDEMNITY MEDICARE PART A & B Member Subscriber Plan / Payer (Ef fective 2001-Present) Name:Keegan Fagan Member ID:[id number] Relation to Subscriber:Self Name:Keegan Fagan Subscriber ID:[id number] Payer ID:[id number] Group ID:Not on file Type:Medicare Address: [facility] [employer] [facility] [address] [place] [phone] [facility] TOTAL CHOICE INDEMNITY MEDICARE PART A & B Member Subscriber Plan / Payer ( fective 2001-Present) Name:Keegan Fagan Member ID:[id number] Relation to Subscriber:Self Name:Keegan Fagan Subscriber ID:[id number] Payer ID:[id number] Group ID:Not on file Type:Medicare Address: [facility] [employer] [facility] [address] [place] [phone] [facility] TOTAL CHOICE INDEMNITY MEDICARE PART A & B [employer] TOTAL CHOICE INDEMNITY MEDICARE PART A & B [employer] [facility] TOTAL CHOICE INDEMNITY MEDIC[place] PART A [place] [id number] [facility] TOTAL CHOICE INDEMNITY Care Teams Garland Machine Operator Relationship Specialty Start Date End Date Milton Durán MD [address] [place] [address] [place] [address] PCP - General 05/31/14 Additional Source Comments The information contained in this document represents components of the legal health record. It is not the complete legal health record.[facility]
== END 2025-07-20 10:05 | disposition home or self-care (01) ==
LOC: HO.ACS 09:37
PROVIDERS: PCP Physician Assistant Medical; Visit Provider Internal Medicine Medical Oncology
DX: Z79.01 Long term (current) use of 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 (principal)

== ENCOUNTER → 2025-07-22 08:56 | Outpatient (BNVA) | payer MEDICARE, OTHER, SELFPAY | PROVIDERS: PCP Physician Assistant Medical; Visit Provider Surgery | DX: Z48.00 Encounter for change or removal of nonsurgical wound dressing (principal) | CPT/HCPCS: 99211 ==

== ENCOUNTER 2025-07-25 09:13 | Outpatient (AMB) | payer MEDICARE, OTHER, SELFPAY ==
[2025-07-25 09:27] LABS: Prothrombin Time Whole Bld POC 29.9 sec (11.1-13.5); ~PT, ~INR - Anti Coag Clinic 2.5 (0.9-1.1)
--- NOTE | 2025-07-25 09:37 | MHC.OFFVISCO ---
Intake Intake Visit Reasons: Anticoagulation Allergies adhesive (ADHESIVE) Allergy (Intermediate, Verified 07/25/25 09:20) RASH, BLISTERS atenolol (Atenolol) Allergy (Mild, Verified 07/25/25 09:20) RASH oxycodone Allergy (Mild, Verified 07/25/25 09:20) Gastrointestinal Upset sotalol (Sotalol) Allergy (Mild, Verified 07/25/25 09:20) RASH tamsulosin Allergy (Unknown, Verified 07/25/25 09:20) reaction unknown tramadol Allergy (Unknown, Verified 07/25/25 09:20) reaction unknown atorvastatin (From Lipitor) Adverse Reaction (Severe, Verified 07/25/25 09:20) SEVERE ACHES AND PAINS Medication List - Last Reconciled 07/25/25 by Nakita Baez RN albuterol sulfate 90 mcg/actuation 2 puffs inhalation Q6H PRN doxazosin 4 mg PO BEDTIME finasteride 5 mg PO DAILY furosemide 40 mg PO DAILY hydromorphone (Dilaudid) 2 mg PO Q6H PRN lisinopril 40 mg PO DAILY rosuvastatin 40 mg PO DAILY spironolactone 25 mg PO DAILY warfarin 3 mg See Protocol PO DAILY warfarin 4 mg See Protocol PO DAILY@1800 Nursing Note INR: 2.5 in therapeutic range Medications and supplements reviewed Pt states he is healing well, going to wound clinic MWF - he may be discharged from wound clinic this week No changes in diet, medications, or supplements, Denies any signs and symptoms of bleeding or bruising or clotting. Bleeding, bruising, clotting discussed Nutritional guidance given - cont to eat a mix of fruits and vegetables to balance INR and promote wound healing: citrus beats blueberries protein Dose: keep same dose for now 4mg daily F/U INR: 1 1/2/weeks Patient verbalizes understanding of instructions given Pt waiting for home meter Anti-Coag Initial Assessment Social Hx Patient Tobacco Use Status: Never used Tobacco alcohol intake: current Alcohol intake frequency: holidays/special occasions only Cardiovascular Hx: HTN and Arrhythmias (afib) Musculoskeletal Hx: Arthritis (knees) Hx: Prostate (enlarged) Neurological Hx: 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
--- OUTSIDE RECORDS SUMMARY | 2025-07-25 09:55 | XMS_ITS | Clinical Summary ---
Author Organization [address] [place] [address] [place] [phone] Phone Care Team Providers Care Health And Nutrition Specialist Name Role Phone Milton Durán MD Primary Care Provider [phone] Allergies Active Allergy Reactions Criticality Noted Date [...] lisinopriL (PRINIVIL,ZESTR IL) 20 mg tablet Take 2 tablets (40 mg total) by mouth 1 (one) time each day. Active warfarin (COUMADIN) 5 mg tablet Take 5 mg by mouth daily. Active metoprolol succinate (TOPROL-XL) 100 mg 24 hr tablet Take 1 tablet (100 mg total) by mouth 1 (one) time each day. 5 Active spironolactone (ALDACTONE) 25 mg tablet Take 1 tablet (25 mg total) by mouth 1 (one) time each day in the morning. Active triamcinolone (KENALOG) 0.1 % cream Apply topically 2 (two) times a day. Active furosemide (LASIX) 40 mg tablet Take 2 tablets (80 mg total) by mouth 1 (one) time each day. Active Active Problems Problem Noted Date Diagnosed Date Pulmonary hypertension ([facility] V24, [facility] V28 ) 08/20/2024 Overview (09/27/2024): Last Assessment [...] to dental procedures. Atrial fibrillation and flutter ([facility] V24, [facility] /[facility] V28) 06/05/2021 Overview (09/27/2024): Atrial [...] Coumadin endocarditis prophylaxis. CHF (congestive heart failure) (CMS/HCC V24, CMS /HCC V28) 06/05/2021 Overview (09/27/2024): Last Assessment & [...] (09/27/2024): Syncope Sick sinus syndrome ([facility] V24, CMS/[facility] V28) 0 06/05/2021 Overview (09/27/2024): Sick sinus syndrome Encounters Date Type Department Care Team Description 07/05/2025 Telephone [facility] Cardiology [facility] [address] [place] [address] Tanmay Flores MD record 06/15/2025 1:30 PM EDT Ancillary Procedure [facility] Cardiology [facility] [address] [place] [address] [place] [address] Chronic diastolic congestive heart failure (CMS/HCC V24, CMS/HCC V28); Atrial fibrillation and flutter (CMS/HCC V24, CMS/HCC V28) 06/15/2025 Telephone [facility] Cardiology [facility] - [facility] [address] [facility] [address] [place] [address] Milton Durán MD Medical Records 06/14/2025 7:40 AM EDT Consult [facility] [address] [place] [phone] Trish Bhardwaj NP Chronic diastolic congestive heart failure (CMS/HCC V24, CMS/HCC V28) (Primary Dx); Atrial fibrillation and flutter (CMS/HCC V24, CMS/HCC V28); Pulmonary hypertension (CMS/HCC V24, CMS/HCC V28); Hx of mechanical aortic valve replacement; Preop cardiovascular exam 06/10/2025 Telephone [facility] [address] [place] [address] [address] [place] [phone] Milton Durán MD Medical Records 05/17/2025 Telephone [facility] [address] [place] [phone] Tanmay Flores MD Pre-op Visit from Last [...] 06/15/2025 2:29 PM EDT Plan of Treatment Upcoming Encounters Date Type Department Care Team (Late st Contact Info) Description 11/02/2025 9:50 AM EST Office Visit [facility] [address] [facility] [address] [place] [phone] Tanmay Flores MD [address] [facility] [address] [place] [address] Health Maintenance Due Date Last Done Comments [...] EST 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 for 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 general 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 (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) use of 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 from Last 3 Months or Most Recently Relevant to Health Maintenance Results * (ABNORMAL) TRANSTHORACIC ECHOCARDIOGRAM (TTE) COMPLETE W/ CONTRAST (06/15/2025 2:29 PM EDT) Left Atrium Minor [place] 6.4 cm CV PACS Left Atrium Major [place] 6.3 cm CV PACS [place] Area Sys [...] ECG 12 lead (06/14/2025 7:48 AM EDT) [facility] Ventricular Rate ECG 65 BPM GEMUSE Atrial Rate 56 BPM GEMUSE QRS Duration 140 ms GEMUSE Q-T Interval 434 ms GEMUSE QTc 451 ms GEMUSE R [place] -18 degrees GEMUSE T [place] 16 degrees GEMUSE ECG Interpretation Atrial fibrillation Incomplete left bundle branch block No significant change was found compared with EKG from 08/2024. Confirmed by Marcin FLORES YUFENG ([id number]) on 06/14/2025 10:54:56 AM GEMUSE 06/14/2025 7:48 AM EDT 06/14/2025 10:54 AM EDT Trish Bhardwaj NP ECG ORDERABLES Final Result GEMUSE * (ABNORMAL) Comprehensive metabolic panel (01/17/2025 6:19 AM EST) [facility] Sodium 137 133 - 145 mmol/L LAB CHEMISTRY METHOD 01/17/2025 1:53 PM EST [facility] Potassium 3.9 3.5 - 5.5 mmol/L LAB CHEMISTRY METHOD 01/17/2025 1:53 PM EST [facility] Chloride 103 96 - 110 mmol/L LAB CHEMISTRY METHOD 01/17/2025 1:53 PM EST [facility] CO2 32 21 - 32 mmol/L LAB CHEMISTRY METHOD 01/17/2025 1:53 PM [facility] Anion Gap 2(L) 3 - 11 LAB CHEMISTRY METHOD 01/17/2025 1:53 PM [facility] Glucose 77 70 - 100 mg/dL LAB CHEMISTRY METHOD 01/17/2025 1:53 PM [facility] BUN 22 5 - 25 mg/dL LAB CHEMISTRY METHOD 01/17/2025 1:53 PM [facility] Creatinine 0.89 0.70 - 1.30 mg/dL LAB CHEMISTRY METHOD 01/17/2025 1:53 PM [facility] eGFR 82 >=60 mL/min/1. 73m2 LAB CHEMISTRY METHOD 01/17/2025 1:53 PM [facility] Comment:Calculation based on the Chronic Kidney Disease Epidemiology Collaboration (CKD-EPI) equation refit without adjustment for race. BUN/Creatinine Ratio 24.7 LAB CHEMISTRY METHOD 01/17/2025 1:53 PM [facility] Calcium 8.2(L) 8.5 - 10.5 mg/dL LAB CHEMISTRY METHOD 01/17/2025 1:53 PM [facility] AST (SGOT) 26 10 - 42 unit/L LAB CHEMISTRY METHOD 01/17/2025 1:53 PM [facility] ALT (SGPT) 23 10 - 60 unit/L LAB CHEMISTRY METHOD 01/17/2025 1:53 PM [facility] Alkaline Phosphatase 59 42 - 121 unit/L LAB CHEMISTRY METHOD 01/17/2025 1:53 PM [facility] Total Protein 7.2 6.0 - 8.0 g/dL LAB CHEMISTRY METHOD 01/17/2025 1:53 PM [facility] Albumin 2.9(L) 3.2 - 5.0 g/dL LAB CHEMISTRY METHOD 01/17/2025 1:53 PM [facility] Total Bilirubin 0.8 0.0 - 1.4 mg/dL LAB CHEMISTRY METHOD 01/17/2025 1:53 PM EST [facility] Blood Venous blood specimen / Unknown Venipuncture / Unknown 01/17/2025 6:19 AM EST 01/17/2025 12:22 PM EST us Bonilla Sosa MD LAB BLOOD ORDERABLES Final Res ult [facility] ([facility]) [facility] [address] [place] [address], from Last 3 Months or Most Recently Relevant to Health Maintenance Insurance MEDICARE [facility] Care Teams Health And Nutrition Specialist Relationship Specialty Start Date End Date Milton Durán MD [address] [place] [address] [place] [address] PCP - General 02/03/18
--- OUTSIDE RECORDS SUMMARY | 2025-07-25 09:55 | XMS_ITS | Clinical Summary ---
Author Organization [facility] Address [address] [address] Phone Care Team Providers Care Mixer Blender Name Role Phone Milton Durán MD Primary Care Provider [phone] Allergies Active Allergy Reactions Criticality Noted Date [...] file Insurance MEDICARE PART A & B [facility] TOTAL CHOICE INDEMNITY MEDICARE PART A & B [facility] TOTAL CHOICE INDEMNITY MEDICARE PART A & B [facility] TOTAL CHOICE INDEMNITY MEDICARE PART A & B [facility] TOTAL CHOICE INDEMNITY MEDICARE PART A & B [facility] TOTAL CHOICE INDEMNITY MEDICARE PART A & B Member Subscriber Plan / Payer (Ef fective 2001-Present) Name:Keegan Fagan Member ID:[id number] Relation to Subscriber:Self Name:Keegan Fagan Subscriber ID:[id number] Payer ID:[id number] Group ID:Not on file Type:Medicare Address: [facility] [employer] [facility] [address] [place] [phone] [facility] TOTAL CHOICE INDEMNITY MEDICARE PART A & B [facility] TOTAL CHOICE INDEMNITY MEDICARE PART A & B [employer] TOTAL CHOICE INDEMNITY MEDICARE PART A & B [email or web address] [id number] TOTAL CHOICE INDEMNITY MED[place] PART A [place] [id number] [facility] TOTAL CHOICE INDEMNITY Care Teams Mixer Blender Relationship Specialty Start Date End Date Milton Durán MD [address] [place] [address] [place] [address] PCP - General 05/31/14 Additional Source Comments The information contained in this document represents components of the legal health record. It is not the complete legal health record.[facility]
--- OUTSIDE RECORDS SUMMARY | 2025-07-25 09:55 | XMS_ITS | Patient Health Record ---
Author Organization [facility] Address [address] [place] [address] Care Team Providers Care Inspector Printed Circuit Boards Name Role Phone Milton Durán MD Primary Care Provider UnavailFady Mcfarland Unavailable [phone] Allergies Allergen (clinical drug ingredient) Drug/Non Drug [...] Problem Acquired hammer toe of right foot (0440396818189 105) Other hammer toe(s) (acquired), right foot (M20.41) Active confirmed Problem Acquired hammer toe of left foot ([id number] 103) Other hammer toe(s) (acquired), left foot [...] Medicare [employer] [address] [place] [address] [id number] Keegan Fagan Jr Self - patient is the insured [employer] ([facility]) [address] [place] [address] [phone] [id number] Keegan Fagan Jr Self - patient is the insured Medical (General) History Medical History History ICD Code Arthritis Back,Hip,and Knee pain Gall bladder problems Heart disease High blood pressure Scarlet fever Measles Mumps Chicken pox Surgical History Surgery Date(Month/Year) Right eye surgery 195 gall bladder 2003 heart surgery unspecified 2001 Hospitalization History Reason Date(Month/Year) [facility] 1 week 10/2021
== END 2025-07-25 09:42 | disposition home or self-care (01) ==
LOC: HO.ACS 09:13
PROVIDERS: PCP Physician Assistant Medical; Visit Provider Internal Medicine Medical Oncology
DX: Z79.01 Long term (current) use of 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 (principal)

== ENCOUNTER → 2025-07-25 09:13 | Outpatient (BNVA) | payer MEDICARE, OTHER, SELFPAY | PROVIDERS: PCP Physician Assistant Medical; Visit Provider Internal Medicine Medical Oncology | DX: Z51.81 Encounter for therapeutic drug level monitoring (principal); Z79.01 Long term (current) use of 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; Z48.00 Encounter for change or removal of nonsurgical wound dressing; L76.22 Postprocedural hemorrhage of skin and subcutaneous tissue following other procedure | CPT/HCPCS: 85610; 99211 ==

== ENCOUNTER → 2025-07-27 09:47 | Outpatient (BNVA) | payer MEDICARE, OTHER, SELFPAY | PROVIDERS: PCP Physician Assistant Medical; Visit Provider Surgery | DX: Z48.00 Encounter for change or removal of nonsurgical wound dressing (principal) | CPT/HCPCS: 99211 ==

== ENCOUNTER 2025-07-29 08:51 | Outpatient (AMB) | payer MEDICARE, OTHER, SELFPAY ==
--- NOTE | 2025-07-29 08:56 | A.OFFVIS_ITS ---
Vital Signs 07/29/25 08:58 Height 6 ft 6 in Weight 234 lb BMI 27.0 Respiration 16 Pulse 72 Intake Visit Reasons: wound care Intake Note: Patient is seen in office for wound check, post excision of left hip mass. Pt c/o: no changes Helicopter Specialist Required: No Accompanied by: Self / Same As Patient Allergies adhesive (ADHESIVE) Allergy (Intermediate, Verified 07/29/25 08:57) RASH, BLISTERS atenolol (Atenolol) Allergy (Mild, Verified 07/29/25 08:57) RASH oxycodone Allergy (Mild, Verified 07/29/25 08:57) Gastrointestinal Upset sotalol (Sotalol) Allergy (Mild, Verified 07/29/25 08:57) RASH tamsulosin Allergy (Unknown, Verified 07/29/25 08:57) reaction unknown tramadol Allergy (Unknown, Verified 07/29/25 08:57) reaction unknown atorvastatin (From Lipitor) Adverse Reaction (Severe, Verified 07/29/25 08:57) SEVERE ACHES AND PAINS HPI HPI wound care: Details: Doing well, denies pain at the site. Just here for wound care. Has his sister who will do dressing changes on Friday due to the holiday weekend. States he has all the required materials for the dressing change at home and has some laid out in the order that they are to be applied [facility] Medical History Hematoma Postoperative anemia due to acute blood loss Mass of left hip region Subtherapeutic international normalized ratio (INR) Acute on chronic anemia Hypotension Aortic valve disease Eye injury Prosthetic eye globe Pneumonia Osteoarthritis Anemia Neuropathy Guillain-Marshall syndrome HTN (hypertension) Leukopenia Atrial fibrillation Surgical History S/P evacuation of hematoma Hx of enucleation of right eyeball Hx of cataract extraction H/O colonoscopy Hx of aortic valve replacement History of cholecystectomy Social History Household Members: Spouse Housing: House Are you a primary care transitions manager to a significant other at home: No Do you presently have visiting nurse or other home services: No Alcohol intake: current Alcohol intake frequency: holidays/special occasions only Alcohol type: wine Comment: Declines bed/ chair alarm- oob independently with walker Patient Tobacco Use Status: Never used Tobacco service: No Current occupational status: retired Current occupation: retired Current occupational exposures/hazards: No Review of Systems Const All systems reviewed & are unremarkable except as noted in HPI and below Physical Exam Vital Signs: Last Vital Signs Pulse 72 07/29/25 08:58 Resp 16 07/29/25 08:58 BMI result Body Mass Index 27.0 Const General: comfortable and no acute distress Orientation/consciousness: patient oriented x3 Skin Other: Left upper extremity wound: About 5 cm long, 1.5-2 cm deep small amounts of slough on the wound bed, I gently debrided this with forceps. No active bleeding, no purulent discharge. Some serous drainage. Nontender Neuro General: patient oriented x3 Assessment & Plan Assessment & Plan (1) S/P evacuation of hematoma: Code(s): Z98.890 - Other specified postprocedural states Category: Medical (2) Change or removal of surgical wound dressing: Code(s): Z48.01 - Encounter for change or removal of surgical wound dressing Category: Medical Plan 89-year-old male s/p chronic hematoma evacuation, multiple repeat hematoma evacuations, now with stable 5 cm by 1 cm deep open wound in the upper left lower extremity. Overall doing well, not having pain. Following up for continued wound care, packing. On exam the wound appears to be healing pretty well, there was no active bleeding, no purulent discharge, there is moderate amounts of serous output noted on the dressings that were removed in the office today but overall the wound appears to be healing well. The wound was repacked with, 1st layer dural fiber folded into the wound packed with 1 small fluff gauze covered with larger gauze and Tegaderm. Patient will continue to do wound care at home this weekend with the assistance of his sister, he has expressed understanding of the process of changing the dressings and feels comfortable that together they will be able to adequately care for this wound this weekend. He is to follow up on Friday in the office for continued wound care. Coding Level of Care Code Est Pt Level 3 (15033) Diagnoses S/P evacuation of hematoma Z98.890 Change or removal of surgical wound dressing Z48.01
[2025-07-29 08:58] VITALS: PULSE 72; RESP 16; BMI 27.0
--- OUTSIDE RECORDS SUMMARY | 2025-07-29 09:43 | XMS_ITS | Patient Health Record ---
Author Organization [facility] Address [address] [place] [address] Care Team Providers Care Trade Promotion Analyst Name Role Phone Milton Durán MD Primary Care Provider UnavailFady Mcfarland Unavailable [phone] Allergies Allergen (clinical drug ingredient) Drug/Non Drug [...] Problem Status W/U Status Risk Notes Problem Other hammer toe(s) (acquired), right foot (M20.41) Active confirmed Problem Acquired hammer toe of left foot ([id number] 103) Other hammer toe(s) (acquired), left foot [...] [employer] [address] [facility] [place] [address] [id number] Keegan Fagan Jr Self - patient is the insured [facility] ([facility]) [address] [place] [address] [id number] Keegan Fagan Jr Self - patient is the insured Medical (General) History Medical History History ICD Code Arthritis Back,Hip,and Knee pain Gall bladder problems Heart disease High blood pressure Scarlet fever Measles Mumps Chicken pox Surgical History Surgery Date(Month/Year) Right eye surgery 195 gall bladder 2003 heart surgery unspecified 2000 Hospitalization History Reason Date(Month/Year) [facility]pneumonia 1 week 10/2021
--- OUTSIDE RECORDS SUMMARY | 2025-07-29 09:43 | XMS_ITS | Encounter Summary ---
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 (current) use of 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 Social History Tobacco [...] as of this encounter Plan of Treatment Upcoming Encounters Date Type Department Care Team (Late st Contact Info) Description 11/02/2025 9:50 AM EST Office Visit [facility] [address] [facility] [address] [place] [address] Tanmay Flores MD [place] [address] documented as of this encounter Procedures Procedure Name Priority Date/Time Associated Diagnosis Comments MANUAL DIFFERENTIAL - SYSMEX WAM Routine 01/17/2025 6:19 AM EST Encounter for other general examination retirement (current) use of 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 PATHOLOGIST REVIEW BLOOD SMEAR Routine 01/17/2025 6:19 AM EST Encounter for other general examination retirement (current) use of 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 CBC WITH AUTO DIFFERENTIAL Routine 01/17/2025 6:19 AM EST Encounter for other general examination retirement (current) use of 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 PROTHROMBIN TIME WITH INR Routine 01/17/2025 6:19 AM EST Encounter for other general examination 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 (current) use of 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 CBC AND DIFFERENTIAL Routine 01/17/2025 6:19 AM EST Encounter for other general examination 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 Target cells - consider liver disease or other etiologies. Monocytosis confirmed - consider reactive conditions versus a myelodysplastic/mye loproliferative neoplasm (CMML). See note. Occasional hyposegmented and hypogranular neutrophils are present. Note: Clinical correlation and follow-up is recommended, including a follow-up CBC to assess for persistence of the patient's cytopenias and monocytosis. If the changes are persistent and/or progressive and if reactive causes are excluded, further evaluation (including possible referral to hematology/oncology and possible bone marrow evaluation) should be considered. 01/19/2025 1:27 PM EST [facility] Blood Venous blood specimen / Unknown Venipuncture / Unknown 01/17/2025 6:19 AM EST 01/17/2025 12:22 PM EST us Bonilla Sosa MD LAB BLOOD ORDERABLES Final Res ult [facility] [address] [place] [address], * (ABNORMAL) Manual differential (01/17/2025 6:19 AM EST) Neutrophils % 36.0 % LAB HEMETOLOGY METHOD 01/17/2025 5:20 PM [facility] Bands % 4.0 % LAB HEMETOLOGY METHOD 01/17/2025 5:20 PM [facility] Lymphocytes % 23.0 % LAB HEMETOLOGY METHOD 01/17/2025 5:20 PM [facility] Reactive Lymphocyte 2.00 % LAB HEMETOLOGY METHOD 01/17/2025 5:20 PM [facility] Monocytes % 32.0 % LAB HEMETOLOGY METHOD 01/17/2025 5:20 PM [facility] Eosinophils % 1.0 % LAB HEMETOLOGY METHOD 01/17/2025 5:20 PM [facility] Basophils % 0.0 % LAB HEMETOLOGY METHOD 01/17/2025 5:20 PM [facility] Metamyelocytes % 1.0(H) % LAB HEMETOLOGY METHOD 01/17/2025 5:20 PM [facility] Myelocytes % 1.0(H) % LAB HEMETOLOGY METHOD 01/17/2025 5:20 PM [facility] Neutrophils Absolute Manual 2.56 1.50 - 7.00 K/mcL LAB HEMETOLOGY METHOD 01/17/2025 5:20 PM [facility] Bands Absolute Manual 0.28(H) 0.00 - 0.00 K/mcL LAB HEMETOLOGY METHOD 01/17/2025 5:20 PM EST [facility] Lymphocytes Absolute 1.63 1.00 - 5.00 K/mcL LAB HEMETOLOGY METHOD 01/17/2025 5:20 PM EST [facility] Reactive Lymph Abs Manual 0.14(H) 0.00 - 0.00 lym LAB HEMETOLOGY METHOD 01/17/2025 5:20 PM EST [facility] Monocytes Absolute Manual 2.27(H) 0.20 - 1.00 K/mcL LAB HEMETOLOGY METHOD 01/17/2025 5:20 PM EST [facility] Eosinophils Absolute Manual 0.07 0.00 - 0.50 K/mcL LAB HEMETOLOGY METHOD 01/17/2025 5:20 PM EST [facility] Basophils Absolute Manual 0.00 0.00 - 0.20 K/mcL LAB HEMETOLOGY METHOD 01/17/2025 5:20 PM EST [facility] Metamyelocytes Absolute Manual 0.07(H) 0.00 - 0.00 K/mcL LAB HEMETOLOGY METHOD 01/17/2025 5:20 PM EST [facility] Myelocytes Absolute Manual 0.07(H) 0.00 - 0.00 K/mcL LAB HEMETOLOGY METHOD 01/17/2025 5:20 PM EST [facility] Blood Venous blood specimen / Unknown Venipuncture / Unknown 01/17/2025 6:19 AM EST 01/17/2025 12:22 PM EST us Bonilla Sosa MD LAB BLOOD ORDERABLES Final Res ult [facility] [address] [place] [address], * (ABNORMAL) CBC auto differential (01/17/2025 6:19 AM EST) WBC 7.1 4.8 - 10.8 K/mcL LAB HEMETOLOGY METHOD 01/17/2025 5:20 PM [facility] RBC 2.60(L) 4.50 - 5.50 M/mcL LAB HEMETOLOGY METHOD 01/17/2025 5:20 PM [facility] Hemoglobin 7.7(L) 13.5 - 17.5 g/dL LAB HEMETOLOGY METHOD 01/17/2025 5:20 PM [facility] Hematocrit 25.2(L) 42.0 - 54.0 % LAB HEMETOLOGY METHOD 01/17/2025 5:20 PM [facility] MCV 96.9 79.0 - 98.0 FL LAB HEMETOLOGY METHOD 01/17/2025 5:20 PM [facility] MCH 29.6 27.0 - 32.0 pcg LAB HEMETOLOGY METHOD 01/17/2025 5:20 PM [facility] MCHC 30.6(L) 32.0 - 37.0 g/dL LAB HEMETOLOGY METHOD 01/17/2025 5:20 PM [facility] RDW 24.7(H) 11.0 - 15.0 % LAB HEMETOLOGY METHOD 01/17/2025 5:20 PM [facility] Platelets 120(L) 130 - 400 K/mcL LAB HEMETOLOGY METHOD 01/17/2025 5:20 PM [facility] MPV 11.9(H) 7.0 - 11.0 FL LAB HEMETOLOGY METHOD 01/17/2025 5:20 PM [facility] NRBC 0.0 <1.0 % LAB HEMETOLOGY METHOD 01/17/2025 5:20 PM [facility] NRBC Absolute 0.00 <0.10 K/mcL LAB HEMETOLOGY METHOD 01/17/2025 5:20 PM [facility] Blood Venous blood specimen / Unknown Venipuncture / Unknown 01/17/2025 6:19 AM EST 01/17/2025 12:22 PM EST Bonilla Sosa MD LAB BLOOD ORDERABLES Final Res ult [facility] [address] [place] [address], [place] [phone] * (ABNORMAL) Prothrombin time with INR (01/17/2025 6:19 AM EST) Protime 29.7(H) 10.6 - 13.9 sec LAB COAGULATION METHOD 01/17/2025 1:26 PM EST [facility] INR 2.4 LAB COAGULATION METHOD 01/17/2025 1:26 PM EST [facility] Blood Venous blood specimen / Unknown Venipuncture / Unknown 01/17/2025 6:19 AM EST 01/17/2025 12:22 PM EST Bonilla Sosa MD LAB BLOOD ORDERABLES Final Res ult Performing Organization Address [facility] Co de Phone Number [facility] [address] [place] [address], [place] [phone] * Magnesium (01/17/2025 6:19 AM EST) Pathologist [facility] Magnesium 2.2 1.9 - 2.6 mg/dL LAB CHEMISTRY METHOD 01/17/2025 1:53 PM EST [facility] Blood Venous blood specimen / Unknown Venipuncture / Unknown 01/17/2025 6:19 AM EST 01/17/2025 12:22 PM EST Bonilla Sosa MD LAB BLOOD ORDERABLES Final Res ult [facility] [address] [place] [address], [place] [phone] * (ABNORMAL) Comprehensive metabolic panel (01/17/2025 6:19 AM EST) Sodium 137 133 - 145 mmol/L LAB CHEMISTRY METHOD 01/17/2025 1:53 PM [facility] Potassium 3.9 3.5 - 5.5 mmol/L LAB CHEMISTRY METHOD 01/17/2025 1:53 PM [facility] Chloride 103 96 - 110 mmol/L LAB CHEMISTRY METHOD 01/17/2025 1:53 PM [facility] CO2 32 21 - 32 mmol/L LAB CHEMISTRY METHOD 01/17/2025 1:53 PM [facility] Anion Gap 2(L) 3 - 11 LAB CHEMISTRY METHOD 01/17/2025 1:53 PM [facility] Glucose 77 70 - 100 mg/dL LAB CHEMISTRY METHOD 01/17/2025 1:53 PM [facility] BUN 22 5 - 25 mg/dL LAB CHEMISTRY METHOD 01/17/2025 1:53 PM [facility] Creatinine 0.89 0.70 - 1.30 mg/dL LAB CHEMISTRY METHOD 01/17/2025 1:53 PM [facility] eGFR 82 >=60 mL/min/1. 73m2 LAB CHEMISTRY METHOD 01/17/2025 1:53 PM [facility] Comment:Calculation based on the Chronic Kidney Disease Epidemiology Collaboration (CKD-EPI) equation refit without adjustment for race. BUN/Creatinine Ratio 24.7 LAB CHEMISTRY METHOD 01/17/2025 1:53 PM [facility] Calcium 8.2(L) 8.5 - 10.5 mg/dL LAB CHEMISTRY METHOD 01/17/2025 1:53 PM [facility] AST (SGOT) 26 10 - 42 unit/L LAB CHEMISTRY METHOD 01/17/2025 1:53 PM [facility] ALT (SGPT) 23 10 - 60 unit/L LAB CHEMISTRY METHOD 01/17/2025 1:53 PM EST [facility] Alkaline Phosphatase 59 42 - 121 unit/L LAB CHEMISTRY METHOD 01/17/2025 1:53 PM EST [facility] Total Protein 7.2 6.0 - 8.0 g/dL LAB CHEMISTRY METHOD 01/17/2025 1:53 PM EST [facility] Albumin 2.9(L) 3.2 - 5.0 g/dL LAB CHEMISTRY METHOD 01/17/2025 1:53 PM EST [facility] Total Bilirubin 0.8 0.0 - 1.4 mg/dL LAB CHEMISTRY METHOD 01/17/2025 1:53 PM [facility] Blood Venous blood specimen / Unknown Venipuncture / Unknown 01/17/2025 6:19 AM EST 01/17/2025 12:22 PM EST us Bonilla Sosa MD LAB BLOOD ORDERABLES Final Res ult [facility] [address] [place] [address], documented in this encounter Visit Diagnoses Diagnosis Encounter for other general examination 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 (current) use of 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 Long-term (current) use of 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 documented in this encounter Care Teams Manager Sterile Relationship Specialty Start Date End Date Milton Durán MD [address] [place] [address] [place] [address] PCP - General 02/03/18 documented as of this encounter
--- OUTSIDE RECORDS SUMMARY | 2025-07-29 09:43 | XMS_ITS | Clinical Summary ---
Author Organization [facility] Address [address] [address] Phone Care Team Providers Care Patient Care Coordinator Name Role Phone Milton Durán MD Primary [...] Problem Noted Date Diagnosed Date Atherosclerosis of [place] co ronary artery of [place] heart without angina pectoris 02/03/2017 Mixed hyperlipidemia [...] file Insurance MEDICARE PART A & B [facility] TOTAL CHOICE INDEMNITY MEDICARE PART A & B [facility] TOTAL CHOICE INDEMNITY MEDICARE PART A & B [facility] TOTAL CHOICE INDEMNITY MEDICARE PART A & B [facility] TOTAL CHOICE INDEMNITY MEDICARE PART A & B [facility] TOTAL CHOICE INDEMNITY MEDICARE PART A & B [facility] TOTAL CHOICE INDEMNITY MEDICARE PART A & B Member Subscriber Plan / Payer ( fective 2001-Present) Name:Keegan Fagan Member ID:[id number] Relation to Subscriber:Self Name:Keegan Fagan Subscriber ID:[id number] Payer ID:[id number] Group ID:Not on file Type:Medicare Address: [facility] [employer] [facility] [address] [place] [phone] [facility] TOTAL CHOICE INDEMNITY MEDICARE PART A & B [employer] TOTAL CHOICE INDEMNITY MEDICARE PART A & B [employer] [facility] TOTAL CHOICE INDEMNITY MEDICARE PART A [place] [id number] [facility] TOTAL CHOICE INDEMNITY Care Teams Patient Care Coordinator Relationship Specialty Start Date End Date Milton Durán MD [address] [place] [address] [place] [address] PCP - General 05/31/14 Additional Source Comments The information contained in this document represents components of the legal health record. It is not the complete legal health record.[facility]
--- OUTSIDE RECORDS SUMMARY | 2025-07-29 09:43 | XMS_ITS | Encounter Summary ---
Author Organization [facility] Address [address] [place] [address] Phone Care Team Providers Care Ed Case Manager Name Role Phone Milton Durán MD Primary Care Provider Encounter Details Date Type Department Care Team (Late st Contact Info) Description 02/21/2016 Ancillary Orders [facility] [address] [address] Paddy Schilling MD, PhD [address] [address] [email or web address] CAD (coronary artery disease) (Primary Dx); Essential hypertension; Murmur Social History Tobacco Use Types Packs/Day Years Used Date Smoking Tobacco: Never Assessed Sex and Gender Information Value Date Recorded Sex Assigned at Not on file Legal Sex Male 5:05 PM EST Gender Identity Not on file Sexual Orientation Not on file documented as of this encounter Plan of Treatment Not on file documented as of this encounter Results * TTE COMPREHENSIVE (08/19/2016 9:30 AM EDT) Body Surface Area 2.42 m2 Left Ventricle Internal Diameter End Diastole 46 42 - 58 mm Left Ventricular Posterior Wall Thickness 12.0 mm Aortic Sinus Diameter 34 mm Aortic Valve Sinus Index 1 14 20 - 32 mm Aortic Sinus Index 14 mm Left Ventricle Internal Diameter End Systole 28 25 - 40 mm Raw LV EF% 63 % Interventricular Septum Thickness 14.0 mm Ascending Aorta Diameter 35 mm Ascending Aorta Diameter 14 mm Ascending Aorta Index 14 mm Ejection Fraction 73 50 - 75 % Left Atrium Dimension Anterior-Posterior 48 15 - 40 mm Left Ventricular Apical Contribution 10.00 Height 198.0 cm Systolic BP mmHg Weight 107.0 kg Diastolic BP mmHg Left Ventricular Mass g Left Ventricle indexed to BSA g/mL Relative Wall Thickness 0.22 - 0.42 Left Ventricle E Wave Speed cm/s Left Ventricle A Wave Speed cm/s Left Ventricle Ea Septal Wave Speed cm/s Echo E/Ea Left Ventricle Ea Lateral Wave Speed cm/s Mitral Valve Deceleration Time ms Left Ventricle Diastolic Volume mL Left Ventricle Diastolic Volume Index mL/m2 Left Ventricle Systolic Volume mL Left Ventricle Systolic Volume Index mL/m2 Left Ventricular Outflow Tract Velocity 1.1 m/s Left Ventricular Outflow Tract Gradient at Rest mmHg Left Ventricle Mid Gradient mmHg Left Ventricular Outflow Tract Gradient at Valsalva mmHg Left Atrium Dimension Superior-Inferior 71.0 29 - 53 mm Left Atrium Dimension Medial-Lateral 38.0 29 - 49 mm Left Atrial Appendage Velocity cm/s Left Atrial Volume mL Left Atrial Volume Index mL/m2 Pulmonary Vein S/D Ratio Pulmonary Venous Atrial Reverse Wave Duration msec Pulmonary Peak Systolic Velocity m/s Pulmonary Peak Diastolic Velocity m/s Aortic Valve Peak Gradient mmHg Aortic Valve Mean Gradient mmHg Aortic Valve Graft Diameter 35.0 mm [id number] mmHg LVOT Gradient Mid Ventricle Peak Valsalva mmHg Left Ventricular Outflow Tract Diameter cm Aortic Valve Area cm2 Aortic Valve Area Index cm2/m2 Aortic Valve Annulus Dimension 1 20 - 32 mm Aortic Valve Annulus Index 1 20 - 32 mm Aortic Valve Annulus Index 1 20 - 32 mm Sinotubular Junction Diameter 23 - 35 mm Sinotubular Junction Index 23 - 35 mm Sinotubular Junction Index 23 - 35 mm Aortic Arch Diameter 29 mm Aortic Isthmus Diameter mm Aortic Valve Aliasing Velocity cm/s Sinus of Valsalva Index 1.3 - 2.1 cm/m2 Proximal Ascending Aorta Index 1.1 - 1.9 cm/m2 Aortic Valve Regurgitant Volume ml Aortic Valve Regurgitant Fraction % Aortic Valve Regurgitation Pressure Half Time ms Aortic Valve Vena Contracta cm Aortic Valve Vnyquist m/s Aortic Valve PISA Radius cm Aortic Regurgitation Max Velocity m/s Aortic Valve EROA cm2 Aortic Valve Deceleration Time ms Aortic Valve Jet Height to Left Vent Outflow Tract Descending Aorta Diameter mm Aortic Valve Regurgitation Time Volume Integral cm Aortic Valve Peak Diastolic Velocity cm/s Aortic Valve Annulus Area cm2 Aortic Valve Annulus Dimension 2 mm Aortic Valve Annulus Perimeter mm Aortic Valve Mean Diameter mm Aortic Valve Distance to Coronary [place] (LM) mm Aortic Valve Distance to Coronary [place] (RCA) mm Aortic Valve Left Coronary Leaflet Length mm Aortic Valve Right Coronary Leaflet Length mm Aortic Valve Peak Velocity cm/s Mitral Valve Total Score Mitral Valve Thickening Score Mitral Valve Mobility Score Mitral Valve Calcification Score Mitral Valve Subvalvular Score Mitral Valve Peak Gradient mmHg Mitral Valve Mean Gradient mmHg Mitral Valve Gradient HR bpm Mitral Valve Gradient Cardiac Output L/min Mitral Valve Peak Gradient at A Wave mmHg Mitral Valve Area Planimetry Equation cm2 Mitral Valve Area Pressure Half Time Eq cm2 Mitral Valve Area Continuity Equation cm2 Mitral Valve Area PISA Equation cm2 Mitral Valve Vnyquist m/s Mitral Valve Area cm2 Mitral Valve PISA Angle Correction deg Mitral Valve Regurgitant Fraction % Mitral Valve Jet Area Ratio Mitral Valve Vena Contracta cm Mitral Valve EROA cm2 Mitral Valve PISA Radius cm Mitral Valve Aliasing Velocity cm/s Mitral Valve Peak Velocity cm/s Mitral Valve Regurgitation Time Volume Integral cm Mitral Valve EROA 3D Equation cm2 Mitral Valve Regurgitant Volume PISA Equation ml Mitral Valve Regurgitant Volume Doppler ml Mitral Valve C-SEPT mm Mitral Valve Coaptation Length mm Mitral Valve Tenting Area cm2 Mitral Valve Tenting Volume ml Mitral Valve Anterior Leaflet Length mm Mitral Valve Anterior Leaflet Area cm2 Mitral Valve Posterior Leaflet Length mm Mitral Valve Posterior Leaflet Area cm2 Mitral Valve Anterior/Posterior Ratio Mitral Valve Annular Diameter AP Diastolic mm Mitral Valve Annular Diameter AP Systolic mm Mitral Valve Annular Diameter Commissural Diastolic mm Mitral Valve Annular Diameter Commissural Systolic mm Mitral Valve Annular Area Systolic cm2 Mitral Valve Annular Perimiter Systolic mm Aorta Mitral Angle deg Mitral Valve Annular Area Diastolic cm2 Mitral Valve Annular Perimiter Diastolic mm Mitral Valve Intertrigonal Distance Systolic mm Mitral Valve Intertrigonal Distance Diastolic mm Mitral Valve E Wave Speed cm/s Mitral Valve A Wave Speed cm/s Mitral Valve Ea Septal Wave Speed cm/s Mitral Valve Echo E/Ea Mitral Valve Ea Lateral Wave Speed cm/s Pericardium Effusion Dimension 1 mm Pericardium Effusion Dimension 2 mm Pericardium Effusion Dimension 3 mm Pulmonary Artery Pressure mmHg Right Ventricle Estimated PA Pressure mmHg Inferior Vena Cava Diameter 0.0 - 21 mm Right Ventricular Outflow Tract Stroke Volume cm3 Right Ventricle TAPSE mm Right Ventricle Ejection Fraction 3D Equation % Right Ventricle Basal Diameter 25 - 41 mm Right Ventricle Mid Diameter 19 - 35 mm Right Ventricle Longitudinal Diameter 59 - 83 mm Right Ventricular Outflow Tract PLAX Diameter 20 - 30 mm Right Ventricular Outflow Tract Proximal Diameter 21 - 35 mm Right Ventricular Outflow Tract Distal Diameter 17 - 27 mm Right Ventricle Wall Thickness Max 1 - 5 mm Right Ventricle Pulse Doppler S Wave cm/s Right Ventricle Color Doppler S Wave cm/s Right Ventricle Fractional Area Change (FAC) % Right Ventricle Free Wall 2D Strain -20 - -38 % Right Ventricle Pulse Doppler MPI 0.09 - 0.43 Right Ventricle Tissue Doppler MPI 0.22 - 0.54 Right Atrium Dimension Superior-Inferior 66 mm Right Atrium Index Superior-Inferior 27 mm Right Atrium Index Superior-Inferior 27 mm Right Atrium Dimension Medial-Lateral 46 mm Right Atrium Dimension Medial-Lateral 19 mm Right Atrium Dimension Medial-Lateral 19 mm Right Ventricle Peak Systolic Pressure 44 mmHg Right Atrium Pressure Estimated 10 mmHg Tricuspid Valve Peak Velocity 2.9 m/s Right Ventricle to Right Atrium Pressure Gradient 34 mmHg Tricuspid Valve Pressure Half Time Equation cm2 Tricuspid Valve Peak Gradient mmhg Tricuspid Valve Mean Gradient mmHg Tricuspid Valve Annulus Area 9.77 - 36.61 cm2 Tricuspid Valve Annulus Dimension Anterior-Posterior mm Tricuspid Valve Annulus Dimension Medial Lateral mm Tricuspid Valve Anterior Leaflet Area cm2 Tricuspid Valve Posterior Leaflet Area cm2 Tricuspid Valve Septal Leaflet Area cm2 Tricuspid Valve Deceleration Time ms Tricuspid Valve E Wave Velocity Max cm/s Tricuspid Valve Vena Contracta cm Tricuspid Valve Regurgitant Volume ml Tricuspid Valve Regurgitant Volume Fraction % Tricuspid Valve Vnyquist m/s Tricuspid Valve PISA Radius cm Tricuspid Valve EROA PISA Equation cm2 Pulmonary Valve Peak Gradient mmHg Pulmonary Valve Mean Gradient mmHg Pulmonary Valve Peak Velocity m/s Pulmonary Valve Area cm2 Right Ventricular Outflow Tract Gradient mmHg Right Ventricular Outflow Tract Peak Velocity m/s Pulmonary Valve Annulus Dimension mm Pulmonary Artery Main - Dimension mm Pulmonary Artery Right - Dimension mm Pulmonary Artery Left - Dimension mm Right Ventricular Outflow Tract Pressure mmHg Pulmonary Artery Acceleration Time msec Pulmoary Artery Deceleration Time msec Pulmonary Artery End Diastolic Pressure mmHg Pulmonary Valve Pressure Half Time ms Patent Ductus Arteriosus Dimension mm Right Ventricular Outflow Tract Velocity Time Integral cm Wall Thickness Max mm Left Ventricle Aneurysm Dimension 1 mm Left Ventricle Aneurysm Dimension 2 mm Left Ventricle Aneurysm Dimension 3 mm Left Ventricle Pseudoaneurysm Dimension 1 mm Left Ventricle Pseudoaneurysm Dimension 2 mm Left Ventricle Pseudoaneurysm Dimension 3 mm Left Ventricle Thrombus Dimension 1 mm Left Ventricle Thrombus Dimension 2 mm Left Ventricle Thrombus Dimension 3 mm Left Ventricle Mass Dimension 1 mm Left Ventricle Mass Dimension 2 mm Left Ventricle Mass Dimension 3 mm Right Ventricle Linear Dimension 43 mm Right Ventricle Thrombus Dimension 1 mm Right Ventricle Thrombus Dimension 2 mm Right Ventricle Thrombus Dimension 3 mm Right Ventricle Mass Dimension 1 mm Right Ventricle Mass Dimension 2 mm Right Ventricle Mass Dimension 3 mm Ventricular Septal Defect Dimension mm Ventricular Septal Defect Dimension 2 mm Conoventricular Ventricular Septal Defect Dimension 1 mm Conoventricular Ventricular Septal Defect Dimension 2 mm Membranous Ventricular Septal Defect Dimension 1 mm Membranous Ventricular Septal Defect Dimension 2 mm Muscular Ventricular Septal Defect Dimension 1 mm Muscular Ventricular Septal Defect Dimension 2 mm Canal Type Ventricular Septal Defect Dimension 1 mm Canal Type Ventricular Septal Defect Dimension 2 mm Intraconal Ventricular Septal Defect Dimension 1 mm Intraconal Ventricular Septal Defect Dimension 2 mm Post Infarction Ventricular Septal Defect Dimension 1 mm Post Infarction Ventricular Septal Defect Dimension 2 mm Ventricular Septal Defect Peak Velocity Ventricular Septal Defect Gradient mmHg Post Operative Ventricular Septal Defect Dimension 1 mm Post Operative Ventricular Septal Defect Dimension 2 mm Echo Qp/Qs Ratio Mechanical Assist RPM 1 RPM Aortic Valve Distance to Cannula Tip mm Cannula Left Ventricle Inflow Velocity m/s Cannula Left Ventricle Outflow Velocity m/s Cannula Right Ventricle Inflow Velocity m/s Cannula Right Ventricle Outflow Velocity m/s LVOT VTI REST cm RPM1 Left Ventricle Inner Diameter End Diastolic mm RPM1 Left Ventricle Inner Diameter End Systolic mm RPM1 Left Ventricle End Diastolic Velocity m/s RPM1 Left Ventricle End Systolic Velocity m/s RPM1 Tricuspid Regurgitation Velocity Max m/s RPM1 Right Ventricle Systolic Pressure mmHg RPM1 Left Ventricular Outflow Tract Velocity Time Integral cm RPM1 Mitral Valve Deceleration Time ms Mechanical Assist RPM 2 RPM RPM2 Left Ventricle Inner Diameter End Diastolic mm RPM2 Left Ventricle Inner Diameter End Systolic mm RPM2 Left Ventricle End Diastolic Velocity m/s RPM2 Left Ventricle End Systolic Velocity m/s RPM2 Tricuspid Regurgitation Velocity Max m/s RPM2 Right Ventricle Systolic Pressure mmHg RPM2 Left Ventricular Outflow Tract Velocity Time Integral cm RPM2 Mitral Valve Deceleration Time ms Mechanical Assist RPM 3 RPM RPM3 Left Ventricle Inner Diameter End Diastolic mm RPM3 Left Ventricle Inner Diameter End Systolic mm RPM3 Left Ventricle End Diastolic Velocity m/s RPM3 Left Ventricle End Systolic Velocity m/s RPM3 Tricuspid Regurgitation Velocity Max m/s RPM3 Right Ventricle Systolic Pressure mmHg RPM3 Left Ventricular Outflow Tract Velocity Time Integral cm RPM3 Mitral Valve Deceleration Time ms Mechanical Assist RPM 4 RPM RPM4 Left Ventricle Inner Diameter End Diastolic mm RPM4 Left Ventricle Inner Diameter End Systolic mm RPM4 Left Ventricle End Diastolic Velocity m/s RPM4 Left Ventricle End Systolic Velocity m/s RPM4 Tricuspid Regurgitation Velocity Max m/s RPM4 Right Ventricle Systolic Pressure mmHg RPM4 Left Ventricular Outflow Tract Velocity Time Integral cm RPM4 Mitral Valve Deceleration Time ms Mechanical Assist RPM 5 RPM RPM5 Left Ventricle Inner Diameter End Diastolic mm RPM5 Left Ventricle Inner Diameter End Systolic mm RPM5 Left Ventricle End Diastolic Velocity m/s RPM5 Left Ventricle End Systolic Velocity m/s RPM5 Tricuspid Regurgitation Velocity Max m/s RPM5 Right Ventricle Systolic Pressure mmHg RPM5 Left Ventricular Outflow Tract Velocity Time Integral cm RPM5 Mitral Valve Deceleration Time ms Mechanical Assist RPM 6 RPM RPM6 Left Ventricle Inner Diameter End Diastolic mm RPM6 Left Ventricle Inner Diameter End Systolic mm RPM6 Left Ventricle End Diastolic Velocity m/s RPM6 Left Ventricle End Systolic Velocity m/s RPM6 Tricuspid Regurgitation Velocity Max m/s RPM6 Right Ventricle Systolic Pressure mmHg RPM6 Left Ventricular Outflow Tract Velocity Time Integral cm RPM6 Mitral Valve Deceleration Time ms RAMP Study Optimal Setting Value Left Atrium Thrombus Dimension 1 mm Left Atrium Thrombus Dimension 2 mm Left Atrium Thrombus Dimension 3 mm Left Atrium Mass Dimension 1 mm Left Atrium Mass Dimension 2 mm Left Atrium Mass Dimension 3 mm Pulmonary Veins Peak Doppler Velocity m/s Pulmonary Veins Peak Gradient mmHg Pulmonary Veins Mean Gradient mmHg Right Atrium Thrombus Dimension 1 mm Right Atrium Thrombus Dimension 2 mm Right Atrium Thrombus Dimension 3 mm Right Atrium Mass Dimension 1 mm Right Atrium Mass Dimension 2 mm Right Atrium Mass Dimension 3 mm Atrial Septal Defect Dimension 1 mm Atrial Septal Defect Dimension 2 mm Atrial Septal Defect Area cm2 Interatrial Septum PFO Diameter mm Interatrial Septum PFO Tunnel Length mm Interatrial Septum Maximum Excursion mm Atrial Septal Defect Gradient mmHg Aortic Valve Time Velocity Integral cm Left Ventricular Outflow Tract Stroke Volume mL Left Ventricular Outflow Tract Stroke Volume Index mL/m2 Left Ventricular Outflow Tract Cross Sectional Area cm2 Aortic Valve Dimensionless Index Aortic Valve Vegetation Dimension 1 mm Aortic Valve Vegetation Dimension 2 mm Aortic Valve Vegetation Dimension 3 mm Aortic Valve Abscess Dimension 1 mm Aortic Valve Abscess Dimension 2 mm Aortic Valve Abscess Dimension 3 mm Aortic Valve Mass Dimension 1 mm Aortic Valve Mass Dimension 2 mm Aortic Valve Mass Dimension 3 mm Aortic Valve Prosthetic Peak Gradient 21 mmHg Aortic Valve Prosthetic Mean Gradient 11 mmHg Aortic Valve Coaptation Length mm Aortic Valve Coarctation Velocity Peak m/s Aortic Valve Coarctation Peak mmHg Aortic Valve Coarctation Mean mmHg Left Ventricular Outflow Tract Gradient Peak Dobutamine mmHg Mitral Valve Vegetation Size Anterior 1 mm Mitral Valve Vegetation Size Anterior 2 mm Mitral Valve Vegetation Size Anterior 3 mm Mitral Valve Vegetation Size Posterior 1 mm Mitral Valve Vegetation Size Posterior 2 mm Mitral Valve Vegetation Size Posterior 3 mm Mitral Valve Annular Diameter AP mm Mitral Valve Annular Diameter ML mm Mitral Valve Prosthetic Peak Gradient mmHg Mitral Valve Prosthetic Mean Gradient mmHg MV Pressure 1/2 time mmHg Tricuspid Valve Annulus Dimension 1 mm Tricuspid Valve Annulus Dimension 2 mm Tricuspid Valve Annulus Dimension 3 mm Tricuspid Valve Vegetation Dimension 1 mm Tricuspid Valve Vegetation Dimension 2 mm Tricuspid Valve Vegetation Dimension 3 mm Tricuspid Valve Mass Dimension 1 mm Tricuspid Valve Mass Dimension 2 mm Tricuspid Valve Mass Dimension 3 mm Tricuspid Valve Prosthetic Peak Gradient mmHg Tricuspid Valve Prosthetic Mean Gradient mmHg Pulmonary Valve Vegetation Dimension 1 mm Pulmonary Valve Vegetation Dimension 2 mm Pulmonary Valve Vegetation Dimension 3 mm Pulmonary Valve Mass Dimension 1 mm Pulmonary Valve Mass Dimension 2 mm Pulmonic Valve Prosthetic Peak Gradient mmHg Pulmonic Valve Prosthetic Mean Gradient mmHg Proximal Left Coronary Artery Dimension mm Proximal Right Coronary Artery Dimension mm Pericardium Extracardiac Mass Dimension 1 mm Pericardium Extracardiac Mass Dimension 2 mm Dyssynchrony IVMD Patient Value ms Dyssynchrony IVMD After Optimization ms Dyssynchrony LVPEI Patient Value ms Dyssynchrony LVPEI After Optimization ms Dyssynchrony LVFT/RR Patient Value % Dyssynchrony LVFT/RR After Optimization % Dyssynchrony OPWD Patient Value ms Dyssynchrony OPWD After Optimization ms Dyssynchrony MTD Patient Value ms Dyssynchrony MTD After Optimization ms Dyssynchrony Ts-DS Patient Value ms Dyssynchrony Ts-DS After Optimization ms Dyssynchrony Speckle Strain Patient Value ms Dyssynchrony Speckle Strain After Optimization ms Dyssynchrony Tm_SV Patient Value ms Dyssynchrony Tm_SV After Optimization ms Dyssychrony VVI AF Sensed AV Delay ms Dyssynchrony VVI AF Paced AV Delay ms Dyssynchrony VVI AF VV Offset ms Dyssychrony AV Optimization Sensed AV Delay ms Dyssychrony AV Optimization Paced AV Delay ms Dyssychrony VV Optimization Optimized Setting ms Anatomical Region Laterality Modality Heart Ultrasound Narrative 08/19/2016 11:48 AM EDT Left Ventricle Left ventricular cavity size is normal and the left ventricular wall thickness is increased. There is left ventricular hypertrophy with an upper septal predominance. Left ventricular systolic function is normal. There are no segmental left ventricular wall motion abnormalities noted. The estimated ejection fraction is 73% (Normal 50-75%). The left ventricular ejection fraction was measured by the single dimension method. There is pseudodyskinesis of the inferior wall which is due to extrinsic compression of the left ventricle by the diaphragm and/or subdiaphragmatic structures (normal variant). Right Ventricle The right ventricular cavity is borderline dilated. The right ventricle measures 43 mm at the base. The right ventricular systolic function is normal. Left Atrium The left atrium is dilated. Right Atrium The right atrium is dilated. Mitral Valve There is no evidence of mitral valve prolapse. There is trace mitral regurgitation detected by spectral and color Doppler. Tricuspid Valve There is color and spectral Doppler evidence of trace tricuspid regurgitation. The RV systolic pressure was estimated from the peak TV regurgitant velocity (assuming an RA pressure of 10 mmHg). The estimated RV systolic pressure is 44 mmHg. 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 The peak gradient is 21 mmHg. The mean gradient is 11 mmHg. (averaged). The prosthetic valve is in a well seated position. Disc motion appears normal. There is no evidence of a paravalvular leak by Doppler. 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 The LVOT velocity is 1.1 m/s. The peak velocity was obtained from the apical 5 chamber view. There is trace valvular AI, which is normal for this valve prosthesis. Pulmonic Valve There is evidence of trace pulmonary regurgitation by color and spectral Doppler. Pericardium There is no evidence of pericardial effusion. There is a space between visceral and parietal pericardium most consistent with epicardial fat. Interventricular Septum Abnormal interventricular septal motion is consistent with post-operative state. General Findings The image quality was good (2). Comparison Findings Compared to a prior report from 08/28/2015, LVH is now noted. The estimated RVSP is higher. Otherwise, there is no important change. us Paddy Schilling MD, PhD CV ECHO ORDERABLES Final Result documented in this encounter Visit Diagnoses Diagnosis CAD (coronary artery disease)- Primary Coronary atherosclerosis of unspecified type of vessel, hopi or graft Essential hypertension Unspecified essential hypertension Murmur Undiagnosed cardiac murmurs CAD (coronary artery disease) Coronary atherosclerosis of unspecified type of vessel, hopi or graft Essential hypertension Unspecified essential hypertension Murmur Undiagnosed cardiac murmurs documented in this encounter Care Teams Ed Case Manager Relationship Specialty Start Date End Date Milton Durán MD [address] [place] [address] [place] [address] PCP - General 05/31/14 documented as of this encounter Additional Source Comments The information contained in this document represents components of the legal health record. It is not the complete legal health record.[facility]
--- OUTSIDE RECORDS SUMMARY | 2025-07-29 09:43 | XMS_ITS | Clinical Summary ---
Author Organization [address] [place] [address] [place] [phone] Phone Care Team Providers Care Test Engineering Intern Name Role Phone Milton Durán MD Primary Care Provider [phone] Allergies Active Allergy Reactions Criticality Noted Date [...] Problem Noted Date Diagnosed Date Pulmonary hypertension ([facility] V24, [facility] V28 ) 08/20/2024 Overview (09/27/2024): Last Assessment [...] to dental procedures. Atrial fibrillation and flutter ([facility] V24, CM /[facility] V28) 06/05/2021 Overview (09/27/2024): Atrial fibrillation [...] 06/05/2021 Overview (09/27/2024): Syncope Sick sinus syndrome ([facility] V24, [facility] V28) 0 06/05/2021 Overview (09/27/2024): Sick sinus syndrome Encounters Date Type Department Care Team Description 07/05/2025 Telephone [facility] Cardiology [facility] [address] [place] [address] Tanmay Flores MD 06/15/2025 1:30 PM EDT Ancillary Procedure [facility] Cardiology [facility] [address] [place] [address] Chronic diastolic congestive heart failure (CMS/HCC V24, CMS/HCC V28); Atrial fibrillation and flutter (CMS/HCC V24, CMS/HCC V28) 06/15/2025 Telephone [facility] Cardiology [facility] [address] [place] [address] Milton Durán MD 06/14/2025 7:40 AM EDT Consult [facility] Cardiology [facility] [address] [place] [phone] Trish Bhardwaj NP Chronic diastolic congestive heart failure (CMS/HCC V24, CMS/HCC V28) (Primary Dx); Atrial fibrillation and flutter (CMS/HCC V24, CMS/HCC V28); Pulmonary hypertension (CMS/HCC V24, CMS/HCC V28); Hx of mechanical aortic valve replacement; Preop cardiovascular exam 06/10/2025 Telephone [facility] Cardiology [facility] [address] [place] [phone] Milton Durán MD 05/17/2025 Telephone [facility] [address] [facility] [address] [place] [phone] Tamnay Flores MD from Last 3 Months Social History Tobacco [...] Description 11/02/2025 9:50 AM EST Office Visit [facility] Cardiology [facility] [address] [place] [address] Tanmay Flores MD [address] [place] [address] [place] [address] Health Maintenance Due Date Last Done Comments [...] (06/15/2025 2:29 PM EDT) Left Atrium Minor [place] 6.4 cm CV PACS Left Atrium Major [place] 6.3 cm CV PACS [place] Area Sys [...] ms GEMUSE QTc 451 ms GEMUSE R [place] -18 degrees GEMUSE T [place] 16 degrees GEMUSE ECG Interpretation Atrial fibrillation Incomplete left bundle branch block No significant change was found compared with EKG from 08/2024. Confirmed by Marcin FLORES YUFENG ([id number]) on 06/14/2025 10:54:56 AM GEMUSE 06/14/2025 7:48 AM EDT 06/14/2025 10:54 AM EDT Trish Bhardwaj NP ECG ORDERABLES Final Result GEMUSE * (ABNORMAL) Comprehensive metabolic panel (01/17/2025 6:19 AM EST) Pathologist [facility] Sodium 137 133 - 145 mmol/L LAB CHEMISTRY METHOD 01/17/2025 1:53 PM [facility] Potassium 3.9 3.5 - 5.5 mmol/L LAB CHEMISTRY METHOD 01/17/2025 1:53 PM [facility] Chloride 103 96 - 110 mmol/L LAB CHEMISTRY METHOD 01/17/2025 1:53 PM [facility] CO2 32 21 - 32 mmol/L LAB CHEMISTRY METHOD 01/17/2025 1:53 PM [facility] Anion Gap 2(L) 3 - 11 LAB CHEMISTRY METHOD 01/17/2025 1:53 PM [facility] Glucose 77 70 - 100 mg/dL LAB CHEMISTRY METHOD 01/17/2025 1:53 PM [facility] BUN 22 5 - 25 mg/dL LAB CHEMISTRY METHOD 01/17/2025 1:53 PM [facility] Creatinine 0.89 0.70 - 1.30 mg/dL LAB CHEMISTRY METHOD 01/17/2025 1:53 PM [facility] eGFR 82 >=60 mL/min/1. 73m2 LAB CHEMISTRY METHOD 01/17/2025 1:53 PM [facility] Comment:Calculation based on the Chronic Kidney Disease Epidemiology Collaboration (CKD-EPI) equation refit without adjustment for race. BUN/Creatinine Ratio 24.7 LAB CHEMISTRY METHOD 01/17/2025 1:53 PM [facility] Calcium 8.2(L) 8.5 - 10.5 mg/dL LAB CHEMISTRY METHOD 01/17/2025 1:53 PM [facility] AST (SGOT) 26 10 - 42 unit/L LAB CHEMISTRY METHOD 01/17/2025 1:53 PM [facility] ALT (SGPT) 23 10 - 60 unit/L LAB CHEMISTRY METHOD 01/17/2025 1:53 PM [facility] Alkaline Phosphatase 59 42 - 121 unit/L LAB CHEMISTRY METHOD 01/17/2025 1:53 PM [facility] Total Protein 7.2 6.0 - 8.0 g/dL LAB CHEMISTRY METHOD 01/17/2025 1:53 PM [facility] Albumin 2.9(L) 3.2 - 5.0 g/dL LAB CHEMISTRY METHOD 01/17/2025 1:53 PM [facility] Total Bilirubin 0.8 0.0 - 1.4 mg/dL LAB CHEMISTRY METHOD 01/17/2025 1:53 PM [facility] Blood Venous blood specimen / Unknown Venipuncture / Unknown 01/17/2025 6:19 AM EST 01/17/2025 12:22 PM EST us Bonilla Sosa MD LAB BLOOD ORDERABLES Final Res ult [facility] [address] [place] [address], from Last 3 Months or Most Recently Relevant to Health Maintenance Insurance [facility]ICARE [facility] Care Teams Test Engineering Intern Relationship Specialty Start Date End Date Milton Durán MD [address] [place] [address] [place] [address] PCP - General 02/03/18
== END 2025-07-29 09:09 | disposition home or self-care (01) ==
LOC: HO.HGS 08:51
PROVIDERS: PCP Physician Assistant Medical
DX: Z98.890 Other specified postprocedural states (principal); Z48.01 Encounter for change or removal of surgical wound dressing
CPT/HCPCS: 99024

== ENCOUNTER → 2025-07-29 08:51 | Outpatient (BNVA) | payer MEDICARE, OTHER, SELFPAY | PROVIDERS: PCP Physician Assistant Medical | DX: Z48.01 Encounter for change or removal of surgical wound dressing (principal) | CPT/HCPCS: 99212 ==

== ENCOUNTER → 2025-08-03 08:59 | Outpatient (BNVA) | payer MEDICARE, OTHER, SELFPAY | PROVIDERS: PCP Physician Assistant Medical; Visit Provider Surgery | DX: Z48.00 Encounter for change or removal of nonsurgical wound dressing (principal) | CPT/HCPCS: 99211 ==

== ENCOUNTER 2025-08-05 08:23 | Outpatient (AMB) | payer MEDICARE, OTHER, SELFPAY ==
[2025-08-05 08:36] LABS: Prothrombin Time Whole Bld POC 28.6 sec (11.1-13.5); ~PT, ~INR - Anti Coag Clinic 2.4 (0.9-1.1)
--- NOTE | 2025-08-05 08:39 | MHC.OFFVISCO ---
Intake Intake Visit Reasons: Anticoagulation Allergies adhesive (ADHESIVE) Allergy (Intermediate, Verified 08/05/25 08:31) RASH, BLISTERS atenolol (Atenolol) Allergy (Mild, Verified 08/05/25 08:31) RASH oxycodone Allergy (Mild, Verified 08/05/25 08:31) Gastrointestinal Upset sotalol (Sotalol) Allergy (Mild, Verified 08/05/25 08:31) RASH tamsulosin Allergy (Unknown, Verified 08/05/25 08:31) reaction unknown tramadol Allergy (Unknown, Verified 08/05/25 08:31) reaction unknown atorvastatin (From Lipitor) Adverse Reaction (Severe, Verified 08/05/25 08:31) SEVERE ACHES AND PAINS Medication List - Last Reconciled 08/05/25 by Maria Luz Yost, RN albuterol sulfate 90 mcg/actuation 2 puffs inhalation Q6H PRN doxazosin 4 mg PO BEDTIME finasteride 5 mg PO DAILY furosemide 40 mg PO DAILY hydromorphone (Dilaudid) 2 mg PO Q6H PRN lisinopril 40 mg PO DAILY rosuvastatin 40 mg PO DAILY spironolactone 25 mg PO DAILY warfarin 3 mg See Protocol PO DAILY warfarin 4 mg See Protocol PO DAILY@1800 Nursing Note INR: 2.4 in therapeutic range of 2-3 Medications and supplements reviewed No changes in health, diet, medications, or supplements, Denies any signs and symptoms of bleeding or bruising or clotting. 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 Illness/Depression: No Coding Level of Care Code Est Patient Level 1 Diagnoses Current use of anticoagulant therapy Z79.01 Assessment & Plan Assessment & Plan (1) Current use of anticoagulant therapy: Code(s): Z79.01 - jail (current) use of 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 Category: Medical
--- OUTSIDE RECORDS SUMMARY | 2025-08-05 08:49 | XMS_ITS | Patient Health Record ---
[facility] Organization [facility] Address [address] [place] [address] Care Team Providers Care Teacher Theater Arts Name Role Phone Milton Durán MD Primary Care Provider UnavailFady Mcfarland Unavailable [phone] Allergies Allergen (clinical drug ingredient) Drug/Non Drug [...] Problem Acquired hammer toe of right foot ([id number] 105) Other hammer toe(s) (acquired), right foot (M20.41) Active confirmed Problem Acquired hammer toe of left foot ([id number] 103) Other hammer toe(s) (acquired), left foot [...] Medicare [employer] [address] [facility] [address] [id number] Keegan Fagan Jr Self - patient is the insured [employer] [facility] [address] [place] [address] [phone] [id number] Keegan Fagan Jr Self - patient is the insured Medical (General) History Medical History History ICD Code Arthritis Back,Hip,and Knee pain Gall bladder problems Heart disease High blood pressure Scarlet fever Measles Mumps Chicken pox Surgical History Surgery Date(Month/Year) Right eye surgery 195 gall bladder 2003 heart surgery unspecified 2001 Hospitalization History Reason Date(Month/Year) [facility]-pneumonia 1 week 10/2021
--- OUTSIDE RECORDS SUMMARY | 2025-08-05 08:49 | XMS_ITS | Clinical Summary ---
Author Organization [address] [place] [address] [place] [phone] Phone Care Team Providers Care Senior Mobile Application Developer Name Role Phone Milton Durán MD Primary Care Provider [phone] Allergies Active Allergy Reactions Criticality Noted Date [...] Problem Noted Date Diagnosed Date Pulmonary hypertension ([facility] V24, [facility] V28 ) 08/20/2024 Overview (09/27/2024): Last Assessment [...] to dental procedures. Atrial fibrillation and flutter ([facility] V24, CM /[facility] V28) 06/05/2021 Overview (09/27/2024): Atrial fibrillation [...] 06/05/2021 Overview (09/27/2024): Syncope Sick sinus syndrome (CMS/[facility] V24, CMS/[facility] V28) 0 06/05/2021 Overview (09/27/2024): Sick sinus syndrome Encounters Date Type Department Care Team Description 07/05/2025 Telephone [facility] Cardiology [facility] [address] [place] [address] Tanmay Flores MD 06/15/2025 1:30 PM EDT Ancillary Procedure [facility] Cardiology [facility] [address] [place] [address] Chronic diastolic congestive heart failure (CMS/HCC V24, CMS/HCC V28); Atrial fibrillation and flutter (CMS/HCC V24, CMS/HCC V28) 06/15/2025 Telephone [facility] Cardiology [facility] - [facility] [address] [place] [address] Milton Durán MD 06/14/2025 7:40 AM EDT Consult [facility] Cardiology [facility] [address] [place] [phone] Trish Bhardwaj NP Chronic diastolic congestive heart failure (CMS/HCC V24, CMS/HCC V28) (Primary Dx); Atrial fibrillation and flutter (CMS/HCC V24, CMS/HCC V28); Pulmonary hypertension (CMS/HCC V24, CMS/HCC V28); Hx of mechanical aortic valve replacement; Preop cardiovascular exam 06/10/2025 Telephone [facility] Cardiology [facility] [address] [place] [address] Milton Durán MD 05/17/2025 Telephone [facility] [address] [facility] [address] [place] [address] Tanmay Flores MD from Last 3 Months Social [...] Description 11/02/2025 9:50 AM EST Office Visit [facility] Cardiology [facility] [address] [place] [address] Tanmay Flores MD [address] [place] [address] [place] [address] Health Maintenance Due Date Last Done Comments Zoster Vaccines (1 of 2) 1985 RSV Immunization Adult Patients (1 - 1-dose 75+ series) 2010 Cholesterol Screening (Lipid Panel) 10/30/2022 Falls Risk Assessment 10/30/2022 Medicare Annual Wellness Visit 10/30/2022 Social Influencers of Health Screening 10/30/2022 Depression Screening 12/01/2024 COVID-19 Vaccine ( season) 2025 01/04/2021, 12/04/2020 Influenza Vaccine (#1) 2025 , 09/18/2022, 10/04/2021, [...] AM EST 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 Confirmed by Marcin FLORES YUFENG ([id number]) on 06/14/2025 10:54:56 AM GEMUSE 06/14/2025 7:48 AM EDT 06/14/2025 10:54 AM EDT Trish Bhardwaj NP ECG ORDERABLES Final Result GEMUSE * (ABNORMAL) Comprehensive metabolic panel (01/17/2025 6:19 AM EST) Pathologist [facility] Sodium 137 133 - 145 mmol/L LAB CHEMISTRY METHOD 01/17/2025 1:53 PM [facility] Potassium 3.9 3.5 - 5.5 mmol/L LAB CHEMISTRY METHOD 01/17/2025 1:53 PM [facility] Chloride 103 96 - 110 mmol/L LAB CHEMISTRY METHOD 01/17/2025 1:53 PM [facility] CO2 32 21 [...] 01/17/2025 1:53 PM [facility] Blood Venous blood specimen / Unknown Venipuncture / Unknown 01/17/2025 6:19 AM EST 01/17/2025 12:22 PM EST us Bonilla Sosa MD LAB BLOOD ORDERABLES Final Res ult [facility] [address] [place] [address], from Last 3 Months or Most Recently Relevant to Health Maintenance Insurance [facility]ICARE [facility] Care Teams Senior Mobile Application Developer Relationship Specialty Start Date End Date Milton Durán MD [address] [place] [address] [place] [address] PCP - General 02/03/18
--- OUTSIDE RECORDS SUMMARY | 2025-08-05 08:51 | XMS_ITS | Encounter Summary ---
Author Organization [facility] Address [address] [place] [address] Phone Care Team Providers Care Home Health Care Provider Name Role Phone Milton Durán MD Primary Care Provider [phone] Encounter Details Date Type Department Care Team (Late st Contact Info) Description 02/21/2016 Ancillary Orders [facility] [address] [address] Paddy Schilling MD, PhD [address] [address] [email or web address] CAD (coronary artery disease) (Primary [...] Coronary atherosclerosis of unspecified type of vessel, [place] or graft Essential hypertension Unspecified essential hypertension Murmur Undiagnosed cardiac murmurs CAD (coronary artery disease) Coronary atherosclerosis of unspecified type of vessel, [place] or graft Essential hypertension Unspecified essential hypertension Murmur Undiagnosed cardiac murmurs documented in this encounter Care Teams Home Health Care Provider Relationship Specialty Start Date End Date Milton Durán MD [address] [place] [address] [place] [address] PCP - General 05/31/14 documented as of this encounter Additional Source Comments The information contained in this document represents components of the legal health record. It is not the complete legal health record.[facility]
--- OUTSIDE RECORDS SUMMARY | 2025-08-05 08:51 | XMS_ITS | Encounter Summary ---
Author Organization [facility] Address [address] [place] [address] Care Team Providers Care Fixed Income [employer] Vice President Name Role Phone Milton Durán MD Primary Care Provider [phone] Encounter Details Date Type Department Care Team (Latest Contact Info) Description 01/17/2025 Lab Requisition [facility] - Main Lab [address] [facility] [place] [address] Bonilla Sosa MD [address] [place] [id number] Encounter for other general examination; residential (current) use of 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 Social History Tobacco [...] Description 11/02/2025 9:50 AM EST Office Visit [facility] [address] 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 CBC WITH AUTO DIFFERENTIAL Routine 01/17/2025 6:19 AM EST Encounter for other general examination residential (current) use of 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 PROTHROMBIN TIME WITH INR Routine 01/17/2025 6:19 AM EST 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 01/19/2025 1:27 PM EST [facility] Blood Venous blood specimen / Unknown Venipuncture / Unknown 01/17/2025 6:19 AM EST 01/17/2025 12:22 PM EST us Bonilla Sosa MD LAB BLOOD ORDERABLES Final Res ult [facility] [address] [place] [address], * (ABNORMAL) Manual differential (01/17/2025 6:19 AM EST) Neutrophils % 36.0 % LAB HEMETOLOGY METHOD 01/17/2025 5:20 PM [facility] Bands % 4.0 % LAB HEMETOLOGY METHOD 01/17/2025 5:20 PM [facility] Lymphocytes % 23.0 % LAB HEMETOLOGY METHOD 01/17/2025 5:20 PM [facility] Reactive Lymphocyte 2.00 % LAB HEMETOLOGY METHOD 01/17/2025 5:20 PM [facility] Monocytes % 32.0 % LAB HEMETOLOGY METHOD 01/17/2025 5:20 PM [facility] Eosinophils % 1.0 % LAB HEMETOLOGY METHOD 01/17/2025 5:20 PM [facility] Basophils % 0.0 % LAB HEMETOLOGY METHOD 01/17/2025 5:20 PM [facility] Metamyelocytes % 1.0(H) % LAB HEMETOLOGY METHOD 01/17/2025 5:20 PM [facility] Myelocytes % 1.0(H) % LAB HEMETOLOGY METHOD 01/17/2025 5:20 PM [facility] Neutrophils Absolute Manual 2.56 1.50 - 7.00 K/mcL LAB HEMETOLOGY METHOD 01/17/2025 5:20 PM [facility] Bands Absolute Manual 0.28(H) 0.00 - 0.00 K/mcL LAB HEMETOLOGY METHOD 01/17/2025 5:20 PM EST [facility] Lymphocytes Absolute 1.63 1.00 - 5.00 K/mcL LAB HEMETOLOGY METHOD 01/17/2025 5:20 PM EST [facility] Reactive Lymph Abs Manual 0.14(H) 0.00 - 0.00 lym LAB HEMETOLOGY METHOD 01/17/2025 5:20 PM EST [facility] Monocytes Absolute Manual 2.27(H) 0.20 - 1.00 K/mcL LAB HEMETOLOGY METHOD 01/17/2025 5:20 PM EST [facility] Eosinophils Absolute Manual 0.07 0.00 - 0.50 K/mcL LAB HEMETOLOGY METHOD 01/17/2025 5:20 PM EST [facility] Basophils Absolute Manual 0.00 0.00 - 0.20 K/mcL LAB HEMETOLOGY METHOD 01/17/2025 5:20 PM EST [facility] Metamyelocytes Absolute Manual 0.07(H) 0.00 - 0.00 K/mcL LAB HEMETOLOGY METHOD 01/17/2025 5:20 PM EST [facility] Myelocytes Absolute Manual 0.07(H) 0.00 - 0.00 K/mcL LAB HEMETOLOGY METHOD 01/17/2025 5:20 PM EST [facility] Blood Venous blood specimen / Unknown Venipuncture / Unknown 01/17/2025 6:19 AM EST 01/17/2025 12:22 PM EST us Bonilla Sosa MD LAB BLOOD ORDERABLES Final Res ult [facility] [address] [place] [address], * (ABNORMAL) CBC auto differential (01/17/2025 6:19 AM EST) WBC 7.1 4.8 - 10.8 K/mcL LAB HEMETOLOGY METHOD 01/17/2025 5:20 PM [facility] RBC 2.60(L) 4.50 - 5.50 M/mcL LAB HEMETOLOGY METHOD 01/17/2025 5:20 PM [facility] Hemoglobin 7.7(L) 13.5 - 17.5 g/dL LAB HEMETOLOGY METHOD 01/17/2025 5:20 PM [facility] Hematocrit 25.2(L) 42.0 - 54.0 % LAB HEMETOLOGY METHOD 01/17/2025 5:20 PM [facility] MCV 96.9 79.0 - 98.0 FL LAB HEMETOLOGY METHOD 01/17/2025 5:20 PM [facility] MCH 29.6 27.0 - 32.0 pcg LAB HEMETOLOGY METHOD 01/17/2025 5:20 PM [facility] MCHC 30.6(L) 32.0 - 37.0 g/dL LAB HEMETOLOGY METHOD 01/17/2025 5:20 PM [facility] RDW 24.7(H) 11.0 - 15.0 % LAB HEMETOLOGY METHOD 01/17/2025 5:20 PM [facility] Platelets 120(L) 130 - 400 K/mcL LAB HEMETOLOGY METHOD 01/17/2025 5:20 PM [facility] MPV 11.9(H) 7.0 - 11.0 FL LAB HEMETOLOGY METHOD 01/17/2025 5:20 PM [facility] NRBC 0.0 <1.0 % LAB HEMETOLOGY METHOD 01/17/2025 5:20 PM [facility] NRBC Absolute 0.00 <0.10 K/mcL LAB HEMETOLOGY METHOD 01/17/2025 5:20 PM [facility] Blood Venous blood specimen / Unknown Venipuncture / Unknown 01/17/2025 6:19 AM EST 01/17/2025 12:22 PM EST Bonilla Sosa MD LAB BLOOD ORDERABLES Final Res ult [facility] [address] [place] [address], [place] [phone] * (ABNORMAL) Prothrombin time with INR (01/17/2025 6:19 AM EST) Protime 29.7(H) 10.6 - 13.9 sec LAB COAGULATION METHOD 01/17/2025 1:26 PM EST [facility] INR 2.4 LAB COAGULATION METHOD 01/17/2025 1:26 PM EST [facility] Blood Venous blood specimen / Unknown Venipuncture / Unknown 01/17/2025 6:19 AM EST 01/17/2025 12:22 PM EST Bonilla Sosa MD LAB BLOOD ORDERABLES Final Res ult Performing Organization Address [facility] Co de Phone Number [facility] [address] [place] [address], [place] [phone] * Magnesium (01/17/2025 6:19 AM EST) Pathologist [facility] Magnesium 2.2 1.9 - 2.6 mg/dL LAB CHEMISTRY METHOD 01/17/2025 1:53 PM EST [facility] Blood Venous blood specimen / Unknown Venipuncture / Unknown 01/17/2025 6:19 AM EST 01/17/2025 12:22 PM EST Bonilla Sosa MD LAB BLOOD ORDERABLES Final Res ult [facility] [address] [place] [address], [place] [phone] * (ABNORMAL) Comprehensive metabolic panel (01/17/2025 6:19 AM EST) Sodium 137 133 - 145 mmol/L LAB CHEMISTRY METHOD 01/17/2025 1:53 PM [facility] Potassium 3.9 3.5 - 5.5 mmol/L LAB CHEMISTRY METHOD 01/17/2025 1:53 PM [facility] Chloride 103 96 - 110 mmol/L LAB CHEMISTRY METHOD 01/17/2025 1:53 PM [facility] CO2 32 21 - 32 mmol/L LAB CHEMISTRY METHOD 01/17/2025 1:53 PM [facility] Anion Gap 2(L) 3 - 11 LAB CHEMISTRY METHOD 01/17/2025 1:53 PM [facility] Glucose 77 70 - 100 mg/dL LAB CHEMISTRY METHOD 01/17/2025 1:53 PM [facility] BUN 22 5 - 25 mg/dL LAB CHEMISTRY METHOD 01/17/2025 1:53 PM [facility] Creatinine 0.89 0.70 - 1.30 mg/dL LAB CHEMISTRY METHOD 01/17/2025 1:53 PM [facility] eGFR 82 >=60 mL/min/1. 73m2 LAB CHEMISTRY METHOD 01/17/2025 1:53 PM [facility] Comment:Calculation based on the Chronic Kidney Disease Epidemiology Collaboration (CKD-EPI) equation refit without adjustment for race. BUN/Creatinine Ratio 24.7 LAB CHEMISTRY METHOD 01/17/2025 1:53 PM [facility] Calcium 8.2(L) 8.5 - 10.5 mg/dL LAB CHEMISTRY METHOD 01/17/2025 1:53 PM [facility] AST (SGOT) 26 10 - 42 unit/L LAB CHEMISTRY METHOD 01/17/2025 1:53 PM [facility] ALT (SGPT) 23 10 - 60 unit/L LAB CHEMISTRY METHOD 01/17/2025 1:53 PM EST [facility] Alkaline Phosphatase 59 42 - 121 unit/L LAB CHEMISTRY METHOD 01/17/2025 1:53 PM EST [facility] Total Protein 7.2 6.0 - 8.0 g/dL LAB CHEMISTRY METHOD 01/17/2025 1:53 PM EST [facility] Albumin 2.9(L) 3.2 - 5.0 g/dL LAB CHEMISTRY METHOD 01/17/2025 1:53 PM EST [facility] Total Bilirubin 0.8 0.0 - 1.4 mg/dL LAB CHEMISTRY METHOD 01/17/2025 1:53 PM [facility] Blood Venous blood specimen / Unknown Venipuncture / Unknown 01/17/2025 6:19 AM EST 01/17/2025 12:22 PM EST us Bonilla Sosa MD LAB BLOOD ORDERABLES Final Res ult [facility] [address] [place] [address], documented in this encounter Visit Diagnoses Diagnosis 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
== END 2025-08-05 08:43 | disposition home or self-care (01) ==
LOC: HO.ACS 08:23
PROVIDERS: PCP Physician Assistant Medical; Visit Provider Internal Medicine Medical Oncology
DX: Z79.01 Long term (current) use of 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 (principal)

== ENCOUNTER → 2025-08-05 08:23 | Outpatient (BNVA) | payer MEDICARE, OTHER, SELFPAY | PROVIDERS: PCP Physician Assistant Medical; Visit Provider Internal Medicine Medical Oncology | DX: Z51.81 Encounter for therapeutic drug level monitoring (principal); Z79.01 Long term (current) use of 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; Z48.00 Encounter for change or removal of nonsurgical wound dressing | CPT/HCPCS: 85610; 99211 ==

== ENCOUNTER → 2025-08-08 08:54 | Outpatient (BNVA) | payer MEDICARE, OTHER, SELFPAY | PROVIDERS: PCP Physician Assistant Medical; Visit Provider Surgery | DX: I48.91 Unspecified atrial fibrillation (principal); I10 Essential (primary) hypertension; D64.9 Anemia, unspecified; Z79.01 Long term (current) use of 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; Z95.2 Presence of prosthetic heart valve | CPT/HCPCS: 99211 ==

== ENCOUNTER → 2025-08-10 08:33 | Outpatient (BNVA) | payer MEDICARE, OTHER, SELFPAY | PROVIDERS: PCP Student in an Organized Health Care Education/Training Program; Visit Provider Surgery | DX: Z48.00 Encounter for change or removal of nonsurgical wound dressing (principal) | CPT/HCPCS: 99211 ==

== ENCOUNTER → 2025-08-12 08:48 | Outpatient (BNVA) | payer MEDICARE, OTHER, SELFPAY | PROVIDERS: PCP Student in an Organized Health Care Education/Training Program; Visit Provider Surgery | DX: Z48.00 Encounter for change or removal of nonsurgical wound dressing (principal) | CPT/HCPCS: 99211 ==

== ENCOUNTER → 2025-08-15 08:55 | Outpatient (BNVA) | payer MEDICARE, OTHER, SELFPAY | PROVIDERS: PCP Student in an Organized Health Care Education/Training Program; Visit Provider Surgery | DX: Z48.00 Encounter for change or removal of nonsurgical wound dressing (principal) | CPT/HCPCS: 99211 ==

== ENCOUNTER → 2025-08-17 08:05 | Outpatient (BNVA) | payer MEDICARE, OTHER, SELFPAY | PROVIDERS: PCP Student in an Organized Health Care Education/Training Program; Visit Provider Internal Medicine Medical Oncology | DX: I48.20 Chronic atrial fibrillation, unspecified (principal); Z95.2 Presence of prosthetic heart valve; Z51.81 Encounter for therapeutic drug level monitoring; Z79.01 Long term (current) use of 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; Z48.00 Encounter for change or removal of nonsurgical wound dressing | CPT/HCPCS: 85610; 99211 ==

== ENCOUNTER 2025-08-24 11:39 | Outpatient (AMB) | payer MEDICARE, OTHER, SELFPAY ==
[2025-08-24 11:41] VITALS: BP 138/78; PULSE 72; BMI 26.9
--- NOTE | 2025-08-24 11:41 | A.OFFVIS_ITS ---
Vital Signs 08/24/25 11:41 Height 6 ft 6 in Weight 233 lb BMI 26.9 BP 138/78 Blood Pressure Location Lt brachial Position Sitting Pulse 72 Intake Visit Reasons: dressing change Intake Note: Patient here for dressing change. Last dressing still in place. Denies pain, oozing. Exchange Specialist Required: No Accompanied by: Self / Same As Patient Allergies adhesive (ADHESIVE) Allergy (Intermediate, Verified 08/24/25 11:43) RASH, BLISTERS atenolol (Atenolol) Allergy (Mild, Verified 08/24/25 11:43) RASH oxycodone Allergy (Mild, Verified 08/24/25 11:43) Gastrointestinal Upset sotalol (Sotalol) Allergy (Mild, Verified 08/24/25 11:43) RASH tamsulosin Allergy (Unknown, Verified 08/24/25 11:43) reaction unknown tramadol Allergy (Unknown, Verified 08/24/25 11:43) reaction unknown atorvastatin (From Lipitor) Adverse Reaction (Severe, Verified 08/24/25 11:43) SEVERE ACHES AND PAINS HPI HPI dressing change: Details: he is doing well. Here for wound care. Has been continuing to manage the wound at home with assistance from his sister. denies pain, no discharge. would like to come back one more time on friday for wound check [facility] Medical History Hematoma Postoperative anemia due to acute blood loss Mass of left hip region Subtherapeutic international normalized ratio (INR) Acute on chronic anemia Hypotension Aortic valve disease Eye injury Prosthetic eye globe Pneumonia Osteoarthritis Anemia Neuropathy Guillain-[place] syndrome HTN (hypertension) Leukopenia Atrial fibrillation Surgical History (Updated 08/24/25 @ 13:48 by Ahmet Lucas PA-C) S/P evacuation of hematoma Hx of enucleation of right eyeball Hx of cataract extraction H/O colonoscopy Hx of aortic valve replacement History of cholecystectomy Family History (Updated 08/08/25 @ 10:15 by Anastasiia Mohr MA) Mother No problems noted. Father No problems noted. Social History Household Members: Spouse Housing: House Are you a primary day care assistant to a significant other at home: No Do you presently have visiting nurse or other home services: No Alcohol intake: current Alcohol intake frequency: holidays/special occasions only Alcohol type: wine Comment: Declines bed/ chair alarm- oob independently with walker Patient Tobacco Use Status: Never used Tobacco e-Cigarette/Vaping Use: Never Used service: No Current occupational status: retired Current occupation: retired Current occupational exposures/hazards: No Cognitive needs: No Hearing needs: No Vision needs: Yes (rx glasses) Physical Exam Vital Signs: Last Vital Signs Pulse 72 08/24/25 11:41 BP 138/78 08/24/25 11:41 BMI result Body Mass Index 26.9 Const General: comfortable and no acute distress Orientation/consciousness: patient oriented x3 Skin Other: LUE: about 1 cm open wound at the center of the incision site. minimal depth, good granulation tissue. Nontender, no discharge or bleeding. Neuro General: patient oriented x3 Assessment & Plan Assessment & Plan (1) S/P evacuation of hematoma: Code(s): Z98.890 - Other specified postprocedural states Category: Medical Plan 89 year old male s/p removal of chronic hematoma, multiple hematoma evacuations on the left upper extremity returning to the office for a wound check. Overall he is doing well. He is not experiencing pain, discharge. On exam the wound is healing well, there remains about a 1 cm shallow opening in the wound. the wound base has good granulation tissue. The wound was redressed with silver alginate, covered with fluff gauze and tegaderm. Will likely need one more dressing change, then can transition to a bandaid to be changed daily. He will return friday for wound check. Can reach out sooner with concerns Coding Level of Care Code Est Pt Level 3 (85705) Diagnoses S/P evacuation of hematoma Z98.890
--- OUTSIDE RECORDS SUMMARY | 2025-08-24 14:43 | XMS_ITS | Clinical Summary ---
Author Organization [address] [place] [address] [place] [phone] Phone Care Team Providers Care Zinc Skimmer Name Role Phone Milton Durán MD Primary Care Provider [phone] Allergies Active Allergy Reactions Criticality Noted Date [...] Problem Noted Date Diagnosed Date Pulmonary hypertension ([facility] V24, [facility] V28 ) 08/20/2024 Overview (09/27/2024): Last Assessment [...] to dental procedures. Atrial fibrillation and flutter ([facility] V24, [facility] V28) 06/05/2021 Overview (09/27/2024): Atrial fibrillation and [...] 06/05/2021 Overview (09/27/2024): Syncope Sick sinus syndrome ([facility] V24, [facility] V28) 0 06/05/2021 Overview (09/27/2024): Sick sinus syndrome Encounters Date Type Department Care Team Description 07/05/2025 Telephone [facility] Cardiology [facility] [address] [place] [address] Tanmay Flores MD 06/15/2025 1:30 PM EDT Ancillary Procedure [facility] Cardiology [facility] [address] [place] [address] Chronic diastolic congestive heart failure (CMS/HCC V24, CMS/HCC V28); Atrial fibrillation and flutter (CMS/HCC V24, CMS/HCC V28) 06/15/2025 Telephone [facility] Cardiology [facility] [address] [place] [address] Milton Durán MD 06/14/2025 7:40 AM EDT Consult [facility] Cardiology [facility] [address] [place] [address] Trish Bhardwaj NP Chronic diastolic congestive heart failure (CMS/HCC V24, CMS/HCC V28) (Primary Dx); Atrial fibrillation and flutter (CMS/HCC V24, CMS/HCC V28); Pulmonary hypertension (CMS/HCC V24, CMS/HCC V28); Hx of mechanical aortic valve replacement; Preop cardiovascular exam 06/10/2025 Telephone [facility] Cardiology [facility] [address] [facility] [address] [place] [address] Milton Durán MD from Last 3 Months Social History [...] Description 11/02/2025 9:50 AM EST Office Visit [facility] Cardiology [facility] [address] [place] [address] Tanmay Flores MD [address] [place] [address] [place] [address] Health Maintenance Due Date Last Done Comments Zoster Vaccines (1 of 2) 1985 RSV Immunization Adult Patients (1 - 1-dose 75+ series) 2010 Cholesterol Screening (Lipid Panel) 10/30/2022 Falls Risk Assessment 10/30/2022 Medicare Annual Wellness Visit 10/30/2022 Social Influencers of Health Screening 10/30/2022 Depression Screening 12/01/2024 COVID-19 Vaccine (3 - season) 2025 01/04/2021, 12/04/2020 Influenza Vaccine (#1) 2025 3, 09/18/2022, 10/04/2021, Additional history exists Hypertension/CHF/CAD Annual [...] AM EST 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 Confirmed by Marcin FLORES YUFENG ([id number]) on 06/14/2025 10:54:56 AM GEMUSE 06/14/2025 7:48 AM EDT 06/14/2025 10:54 AM EDT Trish Bhardwaj NP ECG ORDERABLES Final Result GEMUSE * (ABNORMAL) Comprehensive metabolic panel (01/17/2025 6:19 AM EST) [facility] Sodium 137 133 - 145 mmol/L LAB [...] PM [facility] Comment:Calculation based on the Chronic [...] METHOD 01/17/2025 1:53 PM [facility] Alkaline Phosphatase 59 42 - 121 unit/L LAB CHEMISTRY METHOD 01/17/2025 1:53 PM [facility] Total Protein 7.2 6.0 - 8.0 g/dL LAB CHEMISTRY METHOD 01/17/2025 1:53 PM [facility] Albumin 2.9(L) 3.2 - 5.0 g/dL LAB CHEMISTRY METHOD 01/17/2025 1:53 PM [facility] Total Bilirubin 0.8 0.0 - 1.4 mg/dL LAB CHEMISTRY METHOD 01/17/2025 1:53 PM [facility] Blood Venous blood specimen / Unknown Venipuncture / Unknown 01/17/2025 6:19 AM EST 01/17/2025 12:22 PM EST Bonilla Sosa MD LAB BLOOD ORDERABLES Final Res ult [facility] [address] [place] [address], from Last 3 Months or Most Recently Relevant to Health Maintenance Insurance MEDICARE [facility] Care Teams Zinc Skimmer Relationship Specialty Start Date End Date Milton Durán MD [address] [place] [address] [place] [address] PCP - General 02/03/18
--- OUTSIDE RECORDS SUMMARY | 2025-08-24 14:43 | XMS_ITS | Encounter Summary ---
Author Organization [facility] Address [address] [place] [address] Care Team Providers Care Stone Engraver Name Role Phone Milton Durán MD Primary Care Provider [phone] Encounter Details Date Type Department Care Team (Latest Contact Info) Description 01/17/2025 Lab Requisition [facility] - Main Lab [address] [facility] [place] [address] Bonilla Sosa MD [address] [place] [address] Encounter for other general examination; MCFP (current) use of 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 Social History Tobacco [...] Description 11/02/2025 9:50 AM EST Office Visit [facility] [address] [facility] [address] [place] [address] Tanmay Flores MD [place] [address] documented as of this encounter Procedures Procedure Name Priority Date/Time Associated Diagnosis Comments MANUAL DIFFERENTIAL - SYSMEX WAM Routine 01/17/2025 6:19 AM EST 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 REVIEW BLOOD SMEAR Routine 01/17/2025 6:19 AM EST 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 CBC WITH AUTO DIFFERENTIAL Routine 01/17/2025 6:19 AM EST 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 01/19/2025 1:27 PM EST [facility] Blood Venous blood specimen / Unknown Venipuncture / Unknown 01/17/2025 6:19 AM EST 01/17/2025 12:22 PM EST us Bonilla Sosa MD LAB BLOOD ORDERABLES Final Res ult [facility] [address] [place] [address], * (ABNORMAL) Manual differential (01/17/2025 6:19 AM [...] 01/17/2025 5:20 PM EST [facility] Lymphocytes Absolute 1.63 1.00 - 5.00 K/mcL LAB HEMETOLOGY METHOD 01/17/2025 5:20 PM EST [facility] Reactive Lymph Abs Manual 0.14(H) [...] Final Res ult [facility] [address] [place] [address], * (ABNORMAL) CBC auto differential (01/17/2025 6:19 AM EST) WBC 7.1 4.8 - 10.8 K/mcL LAB HEMETOLOGY METHOD 01/17/2025 5:20 PM [facility] RBC 2.60(L) 4.50 - 5.50 M/mcL LAB HEMETOLOGY METHOD 01/17/2025 5:20 PM [facility] Hemoglobin 7.7(L) 13.5 - 17.5 g/dL LAB HEMETOLOGY METHOD 01/17/2025 5:20 PM [facility] Hematocrit 25.2(L) 42.0 - 54.0 % LAB HEMETOLOGY METHOD 01/17/2025 5:20 PM [facility] MCV 96.9 79.0 - 98.0 FL LAB HEMETOLOGY METHOD 01/17/2025 5:20 PM [facility] MCH 29.6 27.0 - [...] Final Res ult [facility] [address] [place] [address], [place] [phone] * (ABNORMAL) Prothrombin time with INR (01/17/2025 [...] ORDERABLES Final Res ult Performing Organization Address [facility] Co de Phone Number [facility] [address] [place] [address], [place] [phone] * Magnesium (01/17/2025 6:19 AM EST) Pathologist [facility] Magnesium 2.2 1.9 - 2.6 mg/dL LAB CHEMISTRY METHOD 01/17/2025 1:53 PM EST [facility] Blood Venous blood specimen / Unknown Venipuncture / Unknown 01/17/2025 6:19 AM EST 01/17/2025 12:22 PM EST Bonilla Sosa MD LAB BLOOD ORDERABLES Final Res ult [facility] [address] [place] [address], [place] [phone] * (ABNORMAL) Comprehensive metabolic panel (01/17/2025 6:19 [...] 01/17/2025 1:53 PM EST [facility] Alkaline Phosphatase 59 42 - 121 unit/L LAB CHEMISTRY METHOD 01/17/2025 1:53 PM EST [facility] Total Protein 7.2 6.0 - [...] Res ult [facility] [address] [place] [address], documented in this encounter Visit Diagnoses Diagnosis 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
--- OUTSIDE RECORDS SUMMARY | 2025-08-24 14:43 | XMS_ITS | Encounter Summary ---
Author Organization [facility] Address [address] [facility] [address] [place] [address] Phone Care Team Providers Care Recovery Engineer Name Role Phone Milton Durán MD Primary Care Provider Encounter Details Date Type Department Care Team (Late st Contact Info) Description 02/21/2016 Ancillary Orders [facility] [address] [address] Paddy Schilling MD, PhD [address] [address] [email or web address] CAD (coronary artery disease) (Primary Dx); Essential [...] Coronary atherosclerosis of unspecified type of vessel, [place] or graft Essential hypertension Unspecified essential hypertension Murmur Undiagnosed cardiac murmurs CAD (coronary artery disease) Coronary atherosclerosis of unspecified type of vessel, [place] or graft Essential hypertension Unspecified essential hypertension Murmur Undiagnosed cardiac murmurs documented in this encounter Care Teams Recovery Engineer Relationship Specialty Start Date End Date Milton Durán MD [address] [place] [address] [place] [address] PCP - General 05/31/14 documented as of this encounter Additional Source Comments The information contained in this document represents components of the legal health record. It is not the complete legal health record.[facility]
--- OUTSIDE RECORDS SUMMARY | 2025-08-24 14:43 | XMS_ITS | Clinical Summary ---
Author Organization [facility] Address [address] [address] Phone Care Team Providers Care Tool Hardener Name Role Phone Milton Durán MD Primary [...] Problem Noted Date Diagnosed Date Atherosclerosis of [place] co ronary artery of [place] heart without angina pectoris 02/03/2017 Mixed hyperlipidemia [...] VACCINE (1 - 1-dose 75+ series) 2010 INFLUENZA VACCINE (#1) 2025 , 09/30/2019, 09/21/2018, Additional history exists COVID-19 VACCINE ( season) 2025 01/04/2021, 12/04/2020 Adult Td,Tdap Booster 05/11/2029 05/11/2019 [...] file Insurance MEDICARE PART A & B [facility] TOTAL CHOICE INDEMNITY MEDICARE PART A & B Member Subscriber Plan / Payer ( fective 2001-Present) Name:Keegan Fagan Member ID:[id number] Relation to Subscriber:Self Name:Keegan Fagan Subscriber ID:[id number] Payer ID:[id number] Group ID:Not on file Type:Medicare Address: [facility] [employer] [address] [address] [facility] TOTAL CHOICE INDEMNITY MEDICARE PART A & B [facility] TOTAL CHOICE INDEMNITY MEDICARE PART A & B [facility] TOTAL CHOICE INDEMNITY MEDICARE PART A & B [facility] TOTAL CHOICE INDEMNITY MEDICARE PART A & B Member Subscriber Plan / Payer (Ef fective 2001-Present) Name:Keegan Fagan Member ID:[id number] Relation to Subscriber:Self Name:Keegan Fagan Subscriber ID:[id number] Payer ID:[id number] Group ID:Not on file Type:Medicare Address: [facility] [employer] [facility] [address] [place] [phone] [place] [address] TOTAL CHOICE INDEMNITY MEDICARE PART A & B [facility] TOTAL CHOICE INDEMNITY MEDICARE PART A & B [facility] TOTAL CHOICE INDEMNITY MEDICARE PART A & B [facility] TOTAL CHOICE INDEMNITY MEDICARE PART A & B Member Subscriber Plan / Payer (Ef fective 2001-Present) Name:Keegan Fagan Member ID:[id number] Relation to Subscriber:Self Name:Keegan Fagan Subscriber ID:[id number] Payer ID:[id number] Group ID:Not on file Type:Medicare Address: [facility] [employer] [facility] [address] [place] [address] [facility] TOTAL CHOICE INDEMNITY Care Teams Tool Hardener Relationship Specialty Start Date End Date Milton Durán MD [address] [place] [address] [place] [address] PCP - General 05/31/14 Additional Source Comments The information contained in this document represents components of the legal health record. It is not the complete legal health record.[facility]
--- OUTSIDE RECORDS SUMMARY | 2025-08-24 14:43 | XMS_ITS | Patient Health Record ---
Author Organization [facility] Address [address] [place] [address] Care Team Providers Care Healthcare Facility Administrator Name Role Phone Milton Durán MD Primary Care Provider UnavailFady Mcfarland Unavailable [phone] Allergies Allergen (clinical drug ingredient) Drug/Non Drug [...] Problem Acquired hammer toe of right foot (9015522896595 105) Other hammer toe(s) (acquired), right foot (M20.41) Active confirmed Problem Acquired hammer toe of left foot (1247267273870 103) Other hammer toe(s) (acquired), left foot [...] Medicare [employer] [address] [place] [address] [id number] Keegan Fagan Jr Self - patient is the insured [facility] [address] [place] [address] [id number] Keegan Fagan Jr Self - patient is the insured Medical (General) History Medical History History ICD Code Arthritis Back,Hip,and Knee pain Gall bladder problems Heart disease High blood pressure Scarlet fever Measles Mumps Chicken pox Surgical History Surgery Date(Month/Year) Right eye surgery 195 gall bladder 2003 heart surgery unspecified 2001 Hospitalization History Reason Date(Month/Year) [facility]onia 1 week 10/2021
== END 2025-08-24 12:19 | disposition home or self-care (01) ==
LOC: HO.HGS 11:39
PROVIDERS: PCP Student in an Organized Health Care Education/Training Program
DX: Z98.890 Other specified postprocedural states (principal)
CPT/HCPCS: 99024

== ENCOUNTER → 2025-08-24 11:39 | Outpatient (BNVA) | payer MEDICARE, OTHER, SELFPAY | PROVIDERS: PCP Student in an Organized Health Care Education/Training Program | DX: Z48.01 Encounter for change or removal of surgical wound dressing (principal); Z98.890 Other specified postprocedural states; Z95.2 Presence of prosthetic heart valve; I50.32 Chronic diastolic (congestive) heart failure; I48.0 Paroxysmal atrial fibrillation | CPT/HCPCS: 99212 ==

== ENCOUNTER 2025-08-24 14:26 | Outpatient (AMB) | payer MEDICARE, OTHER, SELFPAY ==
--- NOTE | 2025-08-24 14:30 | A.OFFVIS_ITS ---
Vital Signs 08/24/25 14:31 Height 6 ft 6 in Weight 231 lb BMI 26.7 BP 128/68 Blood Pressure Location Lt brachial Position Sitting Pulse 78 Pulse Source Pulse Oximeter Intake Visit Reasons: c dc fu (prev PV cardio pt) Allergies adhesive (ADHESIVE) Allergy (Intermediate, Verified 08/24/25 11:43) RASH, BLISTERS atenolol (Atenolol) Allergy (Mild, Verified 08/24/25 11:43) RASH oxycodone Allergy (Mild, Verified 08/24/25 11:43) Gastrointestinal Upset sotalol (Sotalol) Allergy (Mild, Verified 08/24/25 11:43) RASH tamsulosin Allergy (Unknown, Verified 08/24/25 11:43) reaction unknown tramadol Allergy (Unknown, Verified 08/24/25 11:43) reaction unknown atorvastatin (From Lipitor) Adverse Reaction (Severe, Verified 08/24/25 11:43) SEVERE ACHES AND PAINS Medication List - Last Reconciled 08/24/25 by Mike Camargo MD albuterol sulfate 90 mcg/actuation 2 puffs inhalation Q6H PRN doxazosin 4 mg PO BEDTIME finasteride 5 mg PO DAILY furosemide 40 mg PO DAILY lisinopril 40 mg (2 x 20 mg) PO DAILY rosuvastatin 40 mg PO DAILY spironolactone 25 mg PO DAILY warfarin 4 mg See Protocol PO DAILY@1800 HPI Comments Details: Keegan returns for follow-up. Previously seen at [facility] but he would like to switch his care to us. Last office note reviewed. It seems he has a lot of issues including hypertension, chronic atrial fibrillation/flutter, congestive heart failure with preserved ejection fraction, pulmonary hypertension, bicuspid aortic valve/stenosis status post mechanical aortic valve replacement in 2000, nonobstructive CAD, ascending aortic aneurysm and sick sinus syndrome. From a surgical standpoint, he has had [place] mechanical prosthesis with composite aortic graft in 2000. He is only on warfarin monotherapy and could not tolerate aspirin in the past. Most recently, he was in the hospital for surgical intervention on a chronic hematoma of left thigh and was in the hospital for several days and eventually got discharged. Currently, he states he is back to his normal self and he feels pretty good. No cardiac symptoms. [facility] Medical History (Updated 08/24/25 @ 16:05 by Mike Camargo MD) Hematoma Postoperative anemia due to acute blood loss Mass of left hip region Subtherapeutic international normalized ratio (INR) Acute on chronic anemia Hypotension Aortic valve disease Eye injury Prosthetic eye globe Pneumonia Osteoarthritis Anemia Neuropathy Guillain-[place] syndrome HTN (hypertension) Leukopenia Atrial fibrillation Surgical History (Updated 08/24/25 @ 13:48 by Ahmet Lucas PA-C) S/P evacuation of hematoma Hx of enucleation of right eyeball Hx of cataract extraction H/O colonoscopy Hx of aortic valve replacement History of cholecystectomy Family History (Updated 08/08/25 @ 10:15 by Anastasiia Mohr MA) Mother No problems noted. Father No problems noted. Social History Household Members: Spouse Housing: House Are you a primary animal care taker to a significant other at home: No Do you presently have visiting nurse or other home services: No Alcohol intake: current Alcohol intake frequency: holidays/special occasions only Alcohol type: wine Comment: Declines bed/ chair alarm- oob independently with walker Patient Tobacco Use Status: Never used Tobacco e-Cigarette/Vaping Use: Never Used service: No Current occupational status: retired Current occupation: retired Current occupational exposures/hazards: No Cognitive needs: No Hearing needs: No Vision needs: Yes (rx glasses) Review of Systems Const Denies weakness ENT Denies dizziness Card Denies chest pain, Denies chest pain with activity, Denies syncope, Denies rapid heart rate, Denies pedal edema, Denies edema, Denies leg edema, Denies lightheadedness, Denies palpitations, Denies dyspnea, Denies dyspnea on exertion and Denies orthopnea Resp Denies cough, Denies dyspnea and Denies dyspnea on exertion GI Denies hematochezia and Denies change in stool character Musc Denies abnormal gait, Denies muscle cramps, Denies muscle weakness, Denies numbness, Denies radiating pain into limb and Denies tingling Neuro Denies abnormal gait, Denies dizziness, Denies syncope, Denies numbness, Denies tingling and Denies weakness Endo Denies palpitations Physical Exam Vital Signs: Last Vital Signs Pulse 78 08/24/25 14:31 BP 128/68 08/24/25 14:31 BMI result Body Mass Index 26.7 Const General: comfortable and no acute distress Orientation/consciousness: patient oriented x3 HEENT Other: Unremarkable Head: Yes normal to inspection Neck Neck: Yes normal visual inspection Chest Chest palpation & inspection: normal inspection of the chest Resp Auscultation: clear to auscultation bilaterally Cardio Other: Prosthetic heart sounds present GI Palpation (GI): Soft to palpation Back/Spine/Pelvis Other: unremarkable Skin General skin exam: no rashes or lesions noted Neuro General: patient oriented x3 Extrem General: Yes normal to inspection Psych Mental Status: mental status grossly normal Assessment & Plan Assessment & Plan (1) H/O mechanical aortic valve replacement: Code(s): Z95.2 - Presence of prosthetic heart valve Category: Surgical Plan: Per last echocardiogram at [facility] from May 2025, LVEF 55- 60%. No wall motion abnormalities. Mechanical aortic valve with normal function. Mild pulmonary hypertension. Severe biatrial enlargement. He has been reasonably stable on monotherapy with warfarin and can stay that way. It seems there was a prior intolerance with aspirin. (2) Chronic heart failure with preserved ejection fraction: Code(s): I50.32 - Chronic diastolic (congestive) heart failure Category: Medical Plan: No volume overload issues. He remains on furosemide and spironolactone. If necessary, add another agent like Farxiga or Jardiance in the future. (3) Paroxysmal atrial fibrillation: Code(s): I48.0 - Paroxysmal atrial fibrillation Category: Medical Plan: EKGs from the hospitalization time reviewed. Most of the EKGs show underlying atrial fibrillation. He may need most times. No symptoms from this. Remains on anticoagulation. Plan Discussion Notes I discussed with the patient the importance of maintaining his INR within the therapeutic range and the need for regular monitoring due to his mechanical heart valve. We also reviewed his history of Guillain-[place]? Syndrome and the treatment he received, emphasizing the importance of follow-up care. The patient was advised to continue his current medication regimen and to contact his healthcare provider if any issues arise. Patient was informed and verbally consented to the use of an ambient scribe for clinic note documentation during this visit. Coding Level of Care Code Est Pt Level 4 (82646) Complex EM visit Add On G2211 Diagnoses H/O mechanical aortic valve replacement Z95.2 Chronic heart failure with preserved ejection fraction I50.32 Paroxysmal atrial fibrillation I48.0
[2025-08-24 14:31] VITALS: BP 128/68; PULSE 78; BMI 26.7
== END 2025-08-24 15:13 | disposition home or self-care (01) ==
LOC: HO.HCS 14:27
PROVIDERS: PCP Student in an Organized Health Care Education/Training Program; Visit Provider Internal Medicine
DX: Z95.2 Presence of prosthetic heart valve (principal); I50.32 Chronic diastolic (congestive) heart failure; I48.0 Paroxysmal atrial fibrillation
CPT/HCPCS: 99214; G2211

== ENCOUNTER 2025-08-26 08:58 | Outpatient (AMB) | payer MEDICARE, OTHER, SELFPAY ==
--- NOTE | 2025-08-26 09:03 | A.OFFVIS_ITS ---
Vital Signs 08/26/25 09:08 Height 6 ft 6 in Weight 236 lb BMI 27.3 BP 125/62 Blood Pressure Location Lt brachial Position Sitting Pulse 82 Intake Visit Reasons: wound check Intake Note: Patient here s/p evacuation of hematoma on left upper thigh. Dressing change on 08-24-2025. Patient c/o: dressing still in place. Denies pain or discomfort. Packaging Sales Representative Required: No Accompanied by: Self / Same As Patient Allergies adhesive (ADHESIVE) Allergy (Intermediate, Verified 08/26/25 09:08) RASH, BLISTERS atenolol (Atenolol) Allergy (Mild, Verified 08/26/25 09:08) RASH oxycodone Allergy (Mild, Verified 08/26/25 09:08) Gastrointestinal Upset sotalol (Sotalol) Allergy (Mild, Verified 08/26/25 09:08) RASH tamsulosin Allergy (Unknown, Verified 08/26/25 09:08) reaction unknown tramadol Allergy (Unknown, Verified 08/26/25 09:08) reaction unknown atorvastatin (From Lipitor) Adverse Reaction (Severe, Verified 08/26/25 09:08) SEVERE ACHES AND PAINS HPI HPI wound check: Details: Mr. Fagan presents today for a dressing change and wound check. He has no complaints. He denies pain at the site or drainage from the wound. [facility] Medical History (Updated 08/24/25 @ 16:05 by Mike Camargo MD) Hematoma Postoperative anemia due to acute blood loss Mass of left hip region Subtherapeutic international normalized ratio (INR) Acute on chronic anemia Hypotension Aortic valve disease Eye injury Prosthetic eye globe Pneumonia Osteoarthritis Anemia Neuropathy Guillain-Whitmire syndrome HTN (hypertension) Leukopenia Atrial fibrillation Surgical History (Updated 08/24/25 @ 13:48 by Ahmet Lucas PA-C) S/P evacuation of hematoma Hx of enucleation of right eyeball Hx of cataract extraction H/O colonoscopy Hx of aortic valve replacement History of cholecystectomy Family History (Updated 08/08/25 @ 10:15 by Anastasiia Mohr MA) Mother No problems noted. Father No problems noted. Social History Household Members: Spouse Housing: House Are you a primary neurocritical care physician to a significant other at home: No Do you presently have visiting nurse or other home services: No Alcohol intake: current Alcohol intake frequency: holidays/special occasions only Alcohol type: wine Comment: Declines bed/ chair alarm- oob independently with walker Patient Tobacco Use Status: Never used Tobacco e-Cigarette/Vaping Use: Never Used service: No Current occupational status: retired Current occupation: retired Current occupational exposures/hazards: No Cognitive needs: No Hearing needs: No Vision needs: Yes (rx glasses) Review of Systems Const Denies fever(s) Skin/Breast Reports as per HPI, Denies erythema and Denies rash Physical Exam Vital Signs: Last Vital Signs Pulse 82 08/26/25 09:08 BP 125/62 08/26/25 09:08 BMI result Body Mass Index 27.3 Const General: comfortable, no acute distress and alert Orientation/consciousness: patient oriented x3 Skin Other: left lower extremity, lateral thigh- slight depression in tissue however wound appears completely healed, no opening noted, area nontender, no erythema or drainage- wound dressing completley dry when removed Neuro General: patient oriented x3 and moves all extremities Assessment & Plan Assessment & Plan (1) S/P evacuation of hematoma: Code(s): Z98.890 - Other specified postprocedural states Category: Surgical Plan 89 year old male with history of multiple hematoma evacuations of the left lower extremity, lateral thigh returning to the office for a wound check. Overall he is doing very well and the wound is completely healed without evidence of i nfection and no drainage on dressing placed earlier this week. We discussed leaving the site uncovered and he was reassured he no longer needs dressing changes. He will be seen on Friday for hopefully his last visit to reassess after the weekend. He can return sooner if he develops concerns. Coding Level of Care Code Global (35672) Diagnoses S/P evacuation of hematoma Z98.890
[2025-08-26 09:08] VITALS: BP 125/62; PULSE 82; BMI 27.3
--- OUTSIDE RECORDS SUMMARY | 2025-08-26 09:35 | XMS_ITS | Encounter Summary ---
Author Organization [facility] Address [address] [place] [address] Care Team Providers Care Loss Control Engineer Name Role Phone Milton Durán MD Primary Care Provider [phone] Encounter Details Date Type Department Care Team (Latest Contact Info) Description 01/17/[address] [facility] Lab [address] [facility] [place] [address] Bonilla Sosa MD [address] [place] [id number] Encounter for other general examination; FDC (current) use of 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 Social History Tobacco [...] Description 11/02/2025 9:50 AM EST Office Visit 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 for 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 CBC WITH AUTO DIFFERENTIAL Routine 01/17/2025 6:19 AM EST 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 for 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 01/19/2025 1:27 PM EST [facility] Blood Venous blood specimen / Unknown Venipuncture / Unknown 01/17/2025 6:19 AM EST 01/17/2025 12:22 PM EST us Bonilla Sosa MD LAB BLOOD ORDERABLES Final Res ult [facility] [address] [place] [address], * (ABNORMAL) Manual differential (01/17/2025 6:19 AM EST) Neutrophils % 36.0 % LAB HEMETOLOGY METHOD 01/17/2025 5:20 PM [facility] Bands % 4.0 % LAB HEMETOLOGY METHOD 01/17/2025 5:20 PM [facility] Lymphocytes % 23.0 % LAB HEMETOLOGY METHOD 01/17/2025 5:20 PM [facility] Reactive Lymphocyte 2.00 % LAB HEMETOLOGY METHOD 01/17/2025 5:20 PM [facility] Monocytes % 32.0 % LAB HEMETOLOGY METHOD 01/17/2025 5:20 PM [facility] Eosinophils % 1.0 % LAB HEMETOLOGY METHOD 01/17/2025 5:20 PM [facility] Basophils % 0.0 % LAB HEMETOLOGY METHOD 01/17/2025 5:20 PM [facility] Metamyelocytes % 1.0(H) % LAB HEMETOLOGY METHOD 01/17/2025 5:20 PM [facility] Myelocytes % 1.0(H) % LAB HEMETOLOGY METHOD 01/17/2025 5:20 PM [facility] Neutrophils Absolute Manual 2.56 1.50 - 7.00 K/mcL LAB HEMETOLOGY METHOD 01/17/2025 5:20 PM [facility] Bands Absolute Manual 0.28(H) 0.00 - 0.00 K/mcL LAB HEMETOLOGY METHOD 01/17/2025 5:20 PM EST [facility] Lymphocytes Absolute 1.63 1.00 - 5.00 K/mcL LAB HEMETOLOGY METHOD 01/17/2025 5:20 PM EST [facility] Reactive Lymph Abs Manual 0.14(H) 0.00 - 0.00 lym LAB HEMETOLOGY METHOD 01/17/2025 5:20 PM EST [facility] Monocytes Absolute Manual 2.27(H) 0.20 - 1.00 K/mcL LAB HEMETOLOGY METHOD 01/17/2025 5:20 PM EST [facility] Eosinophils Absolute Manual 0.07 0.00 - 0.50 K/mcL LAB HEMETOLOGY METHOD 01/17/2025 5:20 PM EST [facility] Basophils Absolute Manual 0.00 0.00 - 0.20 K/mcL LAB HEMETOLOGY METHOD 01/17/2025 5:20 PM EST [facility] Metamyelocytes Absolute Manual 0.07(H) 0.00 [...] Final Res ult [facility] [address] [place] [address], * (ABNORMAL) CBC auto differential (01/17/2025 6:19 AM EST) WBC 7.1 4.8 - 10.8 K/mcL LAB HEMETOLOGY METHOD 01/17/2025 5:20 PM [facility] RBC 2.60(L) 4.50 - 5.50 M/mcL LAB HEMETOLOGY METHOD 01/17/2025 5:20 PM [facility] Hemoglobin 7.7(L) 13.5 - 17.5 g/dL LAB HEMETOLOGY METHOD 01/17/2025 5:20 PM [facility] Hematocrit 25.2(L) 42.0 - 54.0 % LAB HEMETOLOGY METHOD 01/17/2025 5:20 PM [facility] MCV 96.9 79.0 - 98.0 FL LAB HEMETOLOGY METHOD 01/17/2025 5:20 PM [facility] MCH 29.6 27.0 - 32.0 pcg LAB HEMETOLOGY METHOD 01/17/2025 5:20 PM [facility] MCHC 30.6(L) 32.0 - 37.0 g/dL LAB HEMETOLOGY METHOD 01/17/2025 5:20 PM [facility] RDW 24.7(H) 11.0 - 15.0 % LAB HEMETOLOGY METHOD 01/17/2025 5:20 PM [facility] Platelets 120(L) 130 - 400 K/mcL LAB HEMETOLOGY METHOD 01/17/2025 5:20 PM [facility] MPV 11.9(H) 7.0 - 11.0 FL LAB HEMETOLOGY METHOD 01/17/2025 5:20 PM [facility] NRBC 0.0 <1.0 % LAB HEMETOLOGY METHOD 01/17/2025 5:20 PM [facility] NRBC Absolute 0.00 <0.10 K/mcL LAB HEMETOLOGY METHOD 01/17/2025 5:20 PM [facility] Blood Venous blood specimen / Unknown Venipuncture / Unknown 01/17/2025 6:19 AM EST 01/17/2025 12:22 PM EST Bonilla Sosa MD LAB BLOOD ORDERABLES Final Res ult [facility] [address] [place] [address], [place] [phone] * (ABNORMAL) Prothrombin time with INR (01/17/2025 6:19 AM EST) Protime 29.7(H) 10.6 - 13.9 sec LAB COAGULATION METHOD 01/17/2025 1:26 PM EST [facility] INR 2.4 LAB COAGULATION METHOD 01/17/2025 1:26 PM EST [facility] Blood Venous blood specimen / Unknown Venipuncture / Unknown 01/17/2025 6:19 AM EST 01/17/2025 12:22 PM EST Bonilla Sosa MD LAB BLOOD ORDERABLES Final Res ult Performing Organization Address [facility] Co de Phone Number [facility] [address] [place] [address], [place] [phone] * Magnesium (01/17/2025 6:19 AM EST) Pathologist [facility] Magnesium 2.2 1.9 - 2.6 mg/dL LAB CHEMISTRY METHOD 01/17/2025 1:53 PM EST [facility] Blood Venous blood specimen / Unknown Venipuncture / Unknown 01/17/2025 6:19 AM EST 01/17/2025 12:22 PM EST Bonilla Sosa MD LAB BLOOD ORDERABLES Final Res ult [facility] [address] [place] [address], [place] [phone] * (ABNORMAL) Comprehensive metabolic panel (01/17/2025 6:19 AM EST) Sodium 137 133 - 145 mmol/L LAB CHEMISTRY METHOD 01/17/2025 1:53 PM [facility] Potassium 3.9 3.5 - 5.5 mmol/L LAB CHEMISTRY METHOD 01/17/2025 1:53 PM [facility] Chloride 103 96 - 110 mmol/L LAB CHEMISTRY METHOD 01/17/2025 1:53 PM [facility] CO2 32 21 - 32 mmol/L LAB CHEMISTRY METHOD 01/17/2025 1:53 PM [facility] Anion Gap 2(L) 3 - 11 LAB CHEMISTRY METHOD 01/17/2025 1:53 PM [facility] Glucose 77 70 - 100 mg/dL LAB CHEMISTRY METHOD 01/17/2025 1:53 PM [facility] BUN 22 5 - 25 mg/dL LAB CHEMISTRY METHOD 01/17/2025 1:53 PM [facility] Creatinine 0.89 0.70 - 1.30 mg/dL LAB CHEMISTRY METHOD 01/17/2025 1:53 PM [facility] eGFR 82 >=60 mL/min/1. 73m2 LAB CHEMISTRY METHOD 01/17/2025 1:53 PM [facility] Comment:Calculation based on the Chronic Kidney Disease Epidemiology Collaboration (CKD-EPI) equation refit without adjustment for race. BUN/Creatinine Ratio 24.7 LAB CHEMISTRY METHOD 01/17/2025 1:53 PM [facility] Calcium 8.2(L) 8.5 - 10.5 mg/dL LAB CHEMISTRY METHOD 01/17/2025 1:53 PM [facility] AST (SGOT) 26 10 - 42 unit/L LAB CHEMISTRY METHOD 01/17/2025 1:53 PM [facility] ALT (SGPT) 23 10 - 60 unit/L LAB CHEMISTRY METHOD 01/17/2025 1:53 PM EST [facility] Alkaline Phosphatase 59 42 - 121 unit/L LAB CHEMISTRY METHOD 01/17/2025 1:53 PM EST [facility] Total Protein 7.2 6.0 - 8.0 g/dL LAB CHEMISTRY METHOD 01/17/2025 1:53 PM EST [facility] Albumin 2.9(L) 3.2 - 5.0 g/dL LAB CHEMISTRY METHOD 01/17/2025 1:53 PM EST [facility] Total Bilirubin 0.8 0.0 - 1.4 mg/dL LAB CHEMISTRY METHOD 01/17/2025 1:53 PM [facility] Blood Venous blood specimen / Unknown Venipuncture / Unknown 01/17/2025 6:19 AM EST 01/17/2025 12:22 PM EST us Bonilla Sosa MD LAB BLOOD ORDERABLES Final Res ult [facility] [address] [place] [address], documented in this encounter Visit Diagnoses Diagnosis 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
--- OUTSIDE RECORDS SUMMARY | 2025-08-26 09:35 | XMS_ITS | Patient Health Record ---
Author Organization [facility] Address [address] [place] [address] Care Team Providers Care Price Clerk Name Role Phone Milton Durán MD Primary Care Provider UnavailFady Mcfarland Unavailable [phone] Allergies Allergen (clinical drug ingredient) Drug/Non Drug [...] Problem Acquired hammer toe of right foot (7288800073932 105) Other hammer toe(s) (acquired), right foot (M20.41) Active confirmed Problem Acquired hammer toe of left foot ([id number] 103) Other hammer toe(s) (acquired), left foot [...] Medicare National [employer] [address] [facility] [address] [id number] Keegan Fagan Jr Self - patient is the insured [employer] ([facility]) [address] [place] [address] [id number] Keegan Fagan Jr Self - patient is the insured Medical (General) History Medical History History ICD Code Arthritis Back,Hip,and Knee pain Gall bladder problems Heart disease High blood pressure Scarlet fever Measles Mumps Chicken pox Surgical History Surgery Date(Month/Year) Right eye surgery 195 gall bladder 2003 heart surgery unspecified 2001 Hospitalization History Reason Date(Month/Year) [facility] 1 week 10/2021
--- OUTSIDE RECORDS SUMMARY | 2025-08-26 09:35 | XMS_ITS | Clinical Summary ---
Author Organization [address] [place] [address] [place] [phone] Phone Care Team Providers Care Ruby Software Developer Name Role Phone Milton Durán MD Primary Care Provider [phone] Allergies Active Allergy Reactions Criticality Noted Date [...] Problem Noted Date Diagnosed Date Pulmonary hypertension ([facility] V24, [facility] V28 ) 08/20/2024 Overview (09/27/2024): [...] to dental procedures. Atrial fibrillation and flutter ([facility] V24, [facility] /[facility] V28) 06/05/2021 Overview (09/27/2024): Atrial [...] Overview (09/27/2024): Syncope Sick sinus syndrome ([facility] V24, [facility] V28) 0 06/05/2021 Overview (09/27/2024): Sick sinus syndrome Encounters Date Type Department Care Team Description 07/05/2025 Telephone [facility] Cardiology [facility] [address] [place] [address] Tanmay Flores MD 06/15/2025 1:30 PM EDT Ancillary Procedure [facility] [address] [place] [address] [place] [address] Chronic diastolic congestive heart failure (CMS/HCC V24, CMS/HCC V28); Atrial fibrillation and flutter (CMS/HCC V24, CMS/HCC V28) 06/15/2025 Telephone [facility]iology [facility] [address] [facility] [address] [place] [address] Milton Durán MD 06/14/2025 7:40 AM EDT Consult [facility] Cardiology [facility] [address] [address] [place] [address] Trish Bhardwaj NP Chronic diastolic congestive heart failure (CMS/HCC V24, CMS/HCC V28) (Primary Dx); Atrial fibrillation and flutter (CMS/HCC V24, CMS/HCC V28); Pulmonary hypertension (CMS/HCC V24, CMS/HCC V28); Hx of mechanical aortic valve replacement; Preop cardiovascular exam 06/10/2025 Telephone [facility]iology [facility] [address] [facility] [address] [place] [address] Milton Durán MD from Last [...] Description 11/02/2025 9:50 AM EST Office Visit [facility] [address] [address] [place] [address] Tanmay Flores MD [address] [place] [address] [place] [address] Health Maintenance Due Date Last Done Comments [...] AM EST Encounter for other general examination color dipper (current) use of 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 from Last 3 Months or Most Recently Relevant to Health Maintenance Results * (ABNORMAL) TRANSTHORACIC ECHOCARDIOGRAM (TTE) COMPLETE W/ CONTRAST (06/15/2025 2:29 PM EDT) Left At[facility] [place] 6.4 cm CV PACS Left At[facility] Major [place] 6.3 cm CV PACS [place] Area Sys [...] ms GEMUSE QTc 451 ms GEMUSE R [place] -18 degrees GEMUSE T [place] 16 degrees GEMUSE ECG Interpretation Atrial fibrillation Incomplete left bundle branch block No significant change was found compared with EKG from 08/2024. Confirmed by Marcin FLORES YUFENG ([id number]) on 06/14/2025 10:54:56 AM GEMUSE 06/14/2025 7:48 AM EDT 06/14/2025 10:54 AM EDT Trish Bhardwaj NP ECG ORDERABLES Final Result GEMUSE * (ABNORMAL) Comprehensive metabolic panel (01/17/2025 6:19 AM EST) [facility] Sodium 137 133 - 145 mmol/L LAB CHEMISTRY METHOD 01/17/2025 1:53 PM [facility] Potassium 3.9 3.5 - 5.5 mmol/L LAB CHEMISTRY METHOD 01/17/2025 1:53 PM [facility] Chloride 103 96 - 110 mmol/L LAB CHEMISTRY METHOD 01/17/2025 1:53 PM [facility] CO2 32 21 - 32 mmol/L LAB CHEMISTRY METHOD 01/17/2025 1:53 PM [facility] Anion Gap 2(L) 3 - 11 LAB CHEMISTRY METHOD 01/17/2025 1:53 PM [facility] Glucose 77 70 - 100 mg/dL LAB CHEMISTRY METHOD 01/17/2025 1:53 PM [facility] BUN 22 5 - 25 mg/dL LAB CHEMISTRY METHOD 01/17/2025 1:53 PM [facility] Creatinine 0.89 0.70 - 1.30 mg/dL LAB CHEMISTRY METHOD 01/17/2025 1:53 PM [facility] eGFR 82 >=60 mL/min/1. 73m2 LAB CHEMISTRY METHOD 01/17/2025 1:53 PM [facility] Comment:Calculation based on the Chronic Kidney Disease Epidemiology Collaboration (CKD-EPI) equation refit without adjustment for race. BUN/Creatinine Ratio 24.7 LAB CHEMISTRY METHOD 01/17/2025 1:53 PM [facility] Calcium 8.2(L) 8.5 - 10.5 mg/dL LAB CHEMISTRY METHOD 01/17/2025 1:53 PM [facility] AST (SGOT) 26 10 - 42 unit/L LAB CHEMISTRY METHOD 01/17/2025 1:53 PM [facility] ALT (SGPT) 23 10 - 60 unit/L LAB CHEMISTRY METHOD 01/17/2025 1:53 PM [facility] Alkaline Phosphatase 59 42 - 121 unit/L LAB CHEMISTRY METHOD 01/17/2025 1:53 PM [facility] Total Protein 7.2 6.0 - 8.0 g/dL LAB CHEMISTRY METHOD 01/17/2025 1:53 PM [facility] Albumin 2.9(L) 3.2 - 5.0 g/dL LAB CHEMISTRY METHOD 01/17/2025 1:53 PM [facility] Total Bilirubin 0.8 0.0 - 1.4 mg/dL LAB CHEMISTRY METHOD 01/17/2025 1:53 PM [facility] Blood Venous blood specimen / Unknown Venipuncture / Unknown 01/17/2025 6:19 AM EST 01/17/2025 12:22 PM EST Bonilla Sosa MD LAB BLOOD ORDERABLES Final Res ult [facility] [address] [place] [address], from Last 3 Months or Most Recently Relevant to Health Maintenance Insurance MEDICARE [facility] Care Teams Ruby Software Developer Relationship Specialty Start Date End Date Milton Durán MD [address] [place] [address] [place] [address] PCP - General 02/03/18
--- OUTSIDE RECORDS SUMMARY | 2025-08-26 09:35 | XMS_ITS | Encounter Summary ---
Author Organization [facility] Address [address] [facility] [address] [place] [address] Phone Care Team Providers Care Business Trainer Name Role Phone Milton Durán MD Primary Care Provider Encounter Details Date Type Department Care Team (Late st Contact Info) Description 02/21/2016 Ancillary Orders [facility] [address] [address] Paddy Schilling MD, PhD [address] [address] [email or web address] CAD (coronary artery disease) (Primary Dx); Essential [...] Coronary atherosclerosis of unspecified type of vessel, [place] or graft Essential hypertension Unspecified essential hypertension Murmur Undiagnosed cardiac murmurs CAD (coronary artery disease) Coronary atherosclerosis of unspecified type of vessel, [place] or graft Essential hypertension Unspecified essential hypertension Murmur Undiagnosed cardiac murmurs documented in this encounter Care Teams Business Trainer Relationship Specialty Start Date End Date Milton Durán MD [address] [place] [address] [place] [address] PCP - General 05/31/14 documented as of this encounter Additional Source Comments The information contained in this document represents components of the legal health record. It is not the complete legal health record.[facility]
== END 2025-08-26 09:23 | disposition home or self-care (01) ==
LOC: HO.HGS 08:58
PROVIDERS: PCP Student in an Organized Health Care Education/Training Program; Visit Provider Physician Assistant Surgical
DX: Z98.890 Other specified postprocedural states (principal)
CPT/HCPCS: 99024

== ENCOUNTER → 2025-08-26 08:58 | Outpatient (BNVA) | payer MEDICARE, OTHER, SELFPAY | PROVIDERS: PCP Student in an Organized Health Care Education/Training Program; Visit Provider Physician Assistant Surgical | DX: M79.652 Pain in left thigh (principal); Z98.890 Other specified postprocedural states | CPT/HCPCS: 99212 ==

== ENCOUNTER 2025-08-29 08:33 | Outpatient (AMB) | payer MEDICARE, OTHER, SELFPAY ==
--- NOTE | 2025-08-29 08:37 | A.OFFVIS_ITS ---
Intake Visit Reasons: wound check Intake Note: Patient here s/p evacuation of hematoma on left upper thigh. Seen by Marilee ESQUIVEL on Friday08-26-2025. Patient c/o: States I don't look at wound. Denies pain or discomfort. Manager Oracle Database Required: No Accompanied by: Self / Same As Patient Allergies adhesive (ADHESIVE) Allergy (Intermediate, Verified 08/29/25 08:39) RASH, BLISTERS atenolol (Atenolol) Allergy (Mild, Verified 08/29/25 08:39) RASH oxycodone Allergy (Mild, Verified 08/29/25 08:39) Gastrointestinal Upset sotalol (Sotalol) Allergy (Mild, Verified 08/29/25 08:39) RASH tamsulosin Allergy (Unknown, Verified 08/29/25 08:39) reaction unknown tramadol Allergy (Unknown, Verified 08/29/25 08:39) reaction unknown atorvastatin (From Lipitor) Adverse Reaction (Severe, Verified 08/29/25 08:39) SEVERE ACHES AND PAINS HPI Comments Details: patient returns for a final wound check. He feels well and denies any problems over the weekend with no dressing applied. He was able to travel to [employer] [employer] [place] yesterday and watch the [employer] play. [facility] Medical History (Updated 08/24/25 @ 16:05 by Mike Camargo MD) Hematoma Postoperative anemia due to acute blood loss Mass of left hip region Subtherapeutic international normalized ratio (INR) Acute on chronic anemia Hypotension Aortic valve disease Eye injury Prosthetic eye globe Pneumonia Osteoarthritis Anemia Neuropathy [facility] [facility] syndrome HTN (hypertension) Leukopenia Atrial fibrillation Surgical History (Updated 08/24/25 @ 13:48 by Ahmet Lucas PA-C) S/P evacuation of hematoma Hx of enucleation of right eyeball Hx of cataract extraction H/O colonoscopy Hx of aortic valve replacement History of cholecystectomy Family History (Updated 08/08/25 @ 10:15 by Anastasiia Mohr MA) Mother No problems noted. Father No problems noted. Social History Household Members: Spouse Housing: House Are you a primary patient care technician instructor to a significant other at home: No Do you presently have visiting nurse or other home services: No Alcohol intake: current Alcohol intake frequency: holidays/special occasions only Alcohol type: wine Comment: Declines bed/ chair alarm- oob independently with walker Patient Tobacco Use Status: Never used Tobacco e-Cigarette/Vaping Use: Never Used service: No Current occupational status: retired Current occupation: retired Current occupational exposures/hazards: No Cognitive needs: No Hearing needs: No Vision needs: Yes (rx glasses) Physical Exam Extrem Other: Left hip wound is now completely healed without redness or discharge. No evidence of infection or hematoma. Assessment & Plan Assessment & Plan (1) Hematoma: Code(s): T14.8XXA - Other injury of unspecified body region, initial encounter Category: Medical Plan 89-year-old male patient status post excision of a chronic hematoma of the left hip complicated by multiple recurrent hematomas subsequently left opened to heal by secondary intention. Wounds are now completely healed with no residual fluid collection and no evidence of infection. He should continue to leave the wound open with no dressing. He should follow up as needed. Coding Level of Care Code Global (21473) Diagnoses Hematoma T14.8XXA
--- OUTSIDE RECORDS SUMMARY | 2025-08-29 08:56 | XMS_ITS | Encounter Summary ---
Author Organization [facility] Address [address] [place] [address] Care Team Providers Care Material Checker Name Role Phone Milton Durán MD Primary Care Provider [phone] Encounter Details Date Type Department Care Team (Latest Contact Info) Description 01/17/2025 Lab Requisition [facility] - Main Lab [address] [facility] [place] [address] Bonilla Sosa MD [address] [place] [address] Encounter for other general examination; senior living (current) use of 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 Social History Tobacco [...] Description 11/02/2025 9:50 AM EST Office Visit [facility] [address] [facility] [address] [place] [address] Tanmay Flores MD [place] [address] documented as of this encounter Procedures Procedure Name Priority Date/Time Associated Diagnosis Comments MANUAL DIFFERENTIAL - SYSMEX WAM Routine 01/17/2025 6:19 AM EST Encounter for other general examination 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 PATHOLOGIST REVIEW BLOOD SMEAR Routine 01/17/2025 6:19 AM EST Encounter for other general examination 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 CBC WITH AUTO DIFFERENTIAL Routine 01/17/2025 6:19 AM EST Encounter for other general examination 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 PROTHROMBIN TIME WITH INR Routine 01/17/2025 6:19 AM EST Encounter for other general examination senior living (current) use of anticoagulants CBC AND DIFFERENTIAL Routine 01/17/2025 6:19 AM EST Encounter for other general examination senior living (current) use of anticoagulants MAGNESIUM Routine 01/17/2025 6:19 AM EST Encounter for other general examination senior living (current) use of anticoagulants COMPREHENSIVE METABOLIC PANEL Routine 01/17/2025 6:19 AM EST Encounter for other general examination 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 01/19/2025 1:27 PM EST [facility] Blood Venous blood specimen / Unknown Venipuncture / Unknown 01/17/2025 6:19 AM EST 01/17/2025 12:22 PM EST us Bonilla Sosa MD LAB BLOOD ORDERABLES Final Res ult [facility] [address] [place] [address], * (ABNORMAL) Manual differential (01/17/2025 6:19 AM EST) Neutrophils % 36.0 % LAB HEMETOLOGY METHOD 01/17/2025 5:20 PM [facility] Bands % 4.0 % LAB HEMETOLOGY METHOD 01/17/2025 5:20 PM [facility] Lymphocytes % 23.0 % LAB HEMETOLOGY METHOD 01/17/2025 5:20 PM [facility] Reactive Lymphocyte 2.00 % LAB HEMETOLOGY METHOD 01/17/2025 5:20 PM [facility] Monocytes % 32.0 % LAB HEMETOLOGY METHOD 01/17/2025 5:20 PM [facility] Eosinophils % 1.0 % LAB HEMETOLOGY METHOD 01/17/2025 5:20 PM [facility] Basophils % 0.0 % LAB HEMETOLOGY METHOD 01/17/2025 5:20 PM [facility] Metamyelocytes % 1.0(H) % LAB HEMETOLOGY METHOD 01/17/2025 5:20 PM [facility] Myelocytes % 1.0(H) % LAB HEMETOLOGY METHOD 01/17/2025 5:20 PM [facility] Neutrophils Absolute Manual 2.56 1.50 - 7.00 K/mcL LAB HEMETOLOGY METHOD 01/17/2025 5:20 PM [facility] Bands Absolute Manual 0.28(H) 0.00 - 0.00 K/mcL LAB HEMETOLOGY METHOD 01/17/2025 5:20 PM EST [facility] Lymphocytes Absolute 1.63 1.00 - 5.00 K/mcL LAB HEMETOLOGY METHOD 01/17/2025 5:20 PM EST [facility] Reactive Lymph Abs Manual 0.14(H) 0.00 - 0.00 lym LAB HEMETOLOGY METHOD 01/17/2025 5:20 PM EST [facility] Monocytes Absolute Manual 2.27(H) 0.20 - 1.00 K/mcL LAB HEMETOLOGY METHOD 01/17/2025 5:20 PM EST [facility] Eosinophils Absolute Manual 0.07 0.00 - 0.50 K/mcL LAB HEMETOLOGY METHOD 01/17/2025 5:20 PM EST [facility] Basophils Absolute Manual 0.00 0.00 - 0.20 K/mcL LAB HEMETOLOGY METHOD 01/17/2025 5:20 PM EST [facility] Metamyelocytes Absolute Manual 0.07(H) 0.00 - 0.00 K/mcL LAB HEMETOLOGY METHOD 01/17/2025 5:20 PM EST [facility] Myelocytes Absolute Manual 0.07(H) 0.00 - 0.00 K/mcL LAB HEMETOLOGY METHOD 01/17/2025 5:20 PM EST [facility] Blood Venous blood specimen / Unknown Venipuncture / Unknown 01/17/2025 6:19 AM EST 01/17/2025 12:22 PM EST us Bonilla Sosa MD LAB BLOOD ORDERABLES Final Res ult [facility] [address] [place] [address], * (ABNORMAL) CBC auto differential (01/17/2025 6:19 AM EST) WBC 7.1 4.8 - 10.8 K/mcL LAB HEMETOLOGY METHOD 01/17/2025 5:20 PM [facility] RBC 2.60(L) 4.50 - 5.50 M/mcL LAB HEMETOLOGY METHOD 01/17/2025 5:20 PM [facility] Hemoglobin 7.7(L) 13.5 - 17.5 g/dL LAB HEMETOLOGY METHOD 01/17/2025 5:20 PM [facility] Hematocrit 25.2(L) 42.0 - 54.0 % LAB HEMETOLOGY METHOD 01/17/2025 5:20 PM [facility] MCV 96.9 79.0 - 98.0 FL LAB HEMETOLOGY METHOD 01/17/2025 5:20 PM [facility] MCH 29.6 27.0 - 32.0 pcg LAB HEMETOLOGY METHOD 01/17/2025 5:20 PM [facility] MCHC 30.6(L) 32.0 - 37.0 g/dL LAB HEMETOLOGY METHOD 01/17/2025 5:20 PM [facility] RDW 24.7(H) 11.0 - 15.0 % LAB HEMETOLOGY METHOD 01/17/2025 5:20 PM [facility] Platelets 120(L) 130 - 400 K/mcL LAB HEMETOLOGY METHOD 01/17/2025 5:20 PM [facility] MPV 11.9(H) 7.0 - 11.0 FL LAB HEMETOLOGY METHOD 01/17/2025 5:20 PM [facility] NRBC 0.0 <1.0 % LAB HEMETOLOGY METHOD 01/17/2025 5:20 PM [facility] NRBC Absolute 0.00 <0.10 K/mcL LAB HEMETOLOGY METHOD 01/17/2025 5:20 PM [facility] Blood Venous blood specimen / Unknown Venipuncture / Unknown 01/17/2025 6:19 AM EST 01/17/2025 12:22 PM EST Bonilla Sosa MD LAB BLOOD ORDERABLES Final Res ult [facility] [address] [place] [address], [place] [phone] * (ABNORMAL) Prothrombin time with INR (01/17/2025 6:19 AM EST) Protime 29.7(H) 10.6 - 13.9 sec LAB COAGULATION METHOD 01/17/2025 1:26 PM EST [facility] INR 2.4 LAB COAGULATION METHOD 01/17/2025 1:26 PM EST [facility] Blood Venous blood specimen / Unknown Venipuncture / Unknown 01/17/2025 6:19 AM EST 01/17/2025 12:22 PM EST Bonilla Sosa MD LAB BLOOD ORDERABLES Final Res ult Performing Organization Address [facility] Co de Phone Number [facility] [address] [place] [address], [place] [phone] * Magnesium (01/17/2025 6:19 AM EST) Pathologist [facility] Magnesium 2.2 1.9 - 2.6 mg/dL LAB CHEMISTRY METHOD 01/17/2025 1:53 PM EST [facility] Blood Venous blood specimen / Unknown Venipuncture / Unknown 01/17/2025 6:19 AM EST 01/17/2025 12:22 PM EST Bonilla Sosa MD LAB BLOOD ORDERABLES Final Res ult [facility] [address] [place] [address], [place] [phone] * (ABNORMAL) Comprehensive metabolic panel (01/17/2025 6:19 AM EST) Sodium 137 133 - 145 mmol/L LAB CHEMISTRY METHOD 01/17/2025 1:53 PM [facility] Potassium 3.9 3.5 - 5.5 mmol/L LAB CHEMISTRY METHOD 01/17/2025 1:53 PM [facility] Chloride 103 96 - 110 mmol/L LAB CHEMISTRY METHOD 01/17/2025 1:53 PM [facility] CO2 32 21 - 32 mmol/L LAB CHEMISTRY METHOD 01/17/2025 1:53 PM [facility] Anion Gap 2(L) 3 - 11 LAB CHEMISTRY METHOD 01/17/2025 1:53 PM [facility] Glucose 77 70 - 100 mg/dL LAB CHEMISTRY METHOD 01/17/2025 1:53 PM [facility] BUN 22 5 - 25 mg/dL LAB CHEMISTRY METHOD 01/17/2025 1:53 PM [facility] Creatinine 0.89 0.70 - 1.30 mg/dL LAB CHEMISTRY METHOD 01/17/2025 1:53 PM [facility] eGFR 82 >=60 mL/min/1. 73m2 LAB CHEMISTRY METHOD 01/17/2025 1:53 PM [facility] Comment:Calculation based on the Chronic Kidney Disease Epidemiology Collaboration (CKD-EPI) equation refit without adjustment for race. BUN/Creatinine Ratio 24.7 LAB CHEMISTRY METHOD 01/17/2025 1:53 PM [facility] Calcium 8.2(L) 8.5 - 10.5 mg/dL LAB CHEMISTRY METHOD 01/17/2025 1:53 PM [facility] AST (SGOT) 26 10 - 42 unit/L LAB CHEMISTRY METHOD 01/17/2025 1:53 PM [facility] ALT (SGPT) 23 10 - 60 unit/L LAB CHEMISTRY METHOD 01/17/2025 1:53 PM EST [facility] Alkaline Phosphatase 59 42 - 121 unit/L LAB CHEMISTRY METHOD 01/17/2025 1:53 PM EST [facility] Total Protein 7.2 6.0 - 8.0 g/dL LAB CHEMISTRY METHOD 01/17/2025 1:53 PM EST [facility] Albumin 2.9(L) 3.2 - 5.0 g/dL LAB CHEMISTRY METHOD 01/17/2025 1:53 PM EST [facility] Total Bilirubin 0.8 0.0 - 1.4 mg/dL LAB CHEMISTRY METHOD 01/17/2025 1:53 PM [facility] Blood Venous blood specimen / Unknown Venipuncture / Unknown 01/17/2025 6:19 AM EST 01/17/2025 12:22 PM EST us Bonilla Sosa MD LAB BLOOD ORDERABLES Final Res ult [facility] [address] [place] [address], documented in this encounter Visit Diagnoses Diagnosis Encounter for other general examination 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
--- OUTSIDE RECORDS SUMMARY | 2025-08-29 08:56 | XMS_ITS | Patient Health Record ---
[facility] Organization [facility] Address [address] [place] [address] Care Team Providers Care Nurse Esthetician Name Role Phone Milton Durán MD Primary Care Provider UnavailFady Mcfarland Unavailable [phone] Allergies Allergen (clinical drug ingredient) Drug/Non Drug [...] Problem Acquired hammer toe of right foot (1251589387245 105) Other hammer toe(s) (acquired), right foot (M20.41) Active confirmed Problem Acquired hammer toe of left foot (7505380315517 103) Other hammer toe(s) (acquired), left foot [...] [employer] [address] [facility] [place] [address] [id number] Keegan Fagan Jr Self - patient is the insured [employer] ([facility] [address] [place] [address] [phone] [id number] Keegan Fagan Jr Self - patient is the insured Medical (General) History Medical History History ICD Code Arthritis Back,Hip,and Knee pain Gall bladder problems Heart disease High blood pressure Scarlet fever Measles Mumps Chicken pox Surgical History Surgery Date(Month/Year) Right eye surgery 195 gall bladder 2003 heart surgery unspecified 2001 Hospitalization History Reason Date(Month/Year) [facility]neumonia 1 week 10/2021
--- OUTSIDE RECORDS SUMMARY | 2025-08-29 08:56 | XMS_ITS | Clinical Summary ---
Author Organization [facility] Address [address] [address] Phone Care Team Providers Care Order Entry Representative Name Role Phone Milton Durán MD Primary [...] Problem Noted Date Diagnosed Date Atherosclerosis of [place] ronary artery of [place] heart without angina pectoris 02/03/2017 Mixed hyperlipidemia [...] file Insurance MEDICARE PART A & B [facility] TOTAL CHOICE INDEMNITY MEDICARE PART A & B [facility] TOTAL CHOICE INDEMNITY MEDICARE PART A & B [facility] TOTAL CHOICE INDEMNITY MEDICARE PART A & B [facility] TOTAL CHOICE INDEMNITY MEDICARE PART A & B [facility] TOTAL CHOICE INDEMNITY MEDICARE PART A & B Member Subscriber Plan / Payer (Ef fective 2001-Present) Name:Keegan Fagan Member ID:[id number] Relation to Subscriber:Self Name:Keegan Fagan Subscriber ID:[id number] Payer ID:[id number] Group ID:Not on file Type:Medicare Address: [facility] [employer] [facility] [address] [place] [phone] [place] [address] TOTAL CHOICE INDEMNITY MEDICARE PART A & B [facility] TOTAL CHOICE INDEMNITY MEDICARE PART A & B [facility] TOTAL CHOICE INDEMNITY MEDICARE PART A & B [facility] TOTAL CHOICE INDEMNITY MEDICARE PART A & B [facility] TOTAL CHOICE INDEMNITY Care Teams Order Entry Representative Relationship Specialty Start Date End Date Milton Durán MD [address] [place] [address] [place] [address] PCP - General 05/31/14 Additional Source Comments The information contained in this document represents components of the legal health record. It is not the complete legal health record.[facility]
--- OUTSIDE RECORDS SUMMARY | 2025-08-29 08:56 | XMS_ITS | Clinical Summary ---
Author Organization [address] [place] [address] [place] [address] Phone Care Team Providers Care Consultant Nurse Name Role Phone Milton Durán MD Primary Care Provider [phone] Allergies Active Allergy Reactions Criticality Noted Date [...] Problem Noted Date Diagnosed Date Pulmonary hypertension ([facility] V24, [facility] V28 ) 08/20/2024 Overview (09/27/2024): Last Assessment [...] to dental procedures. Atrial fibrillation and flutter ([facility] V24, CM /[facility] V28) 06/05/2021 Overview (09/27/2024): Atrial fibrillation and [...] 06/05/2021 Overview (09/27/2024): Syncope Sick sinus syndrome ([facility] V24, CMS/[facility] V28) 0 06/05/2021 Overview (09/27/2024): Sick sinus syndrome Encounters Date Type Department Care Team Description 07/05/2025 Telephone [facility]iology [facility] [address] [place] [address] Tanmay Flores MD 06/15/2025 1:30 PM EDT Ancillary Procedure [facility] [address] [place] [address] [place] [address] Chronic diastolic congestive heart failure (CMS/HCC V24, CMS/HCC V28); Atrial fibrillation and flutter (CMS/HCC V24, CMS/HCC V28) 06/15/2025 Telephone [facility]iology [facility] [address] [facility] [address] [place] [address] Milton Durán MD 06/14/2025 7:40 AM EDT Consult [facility] [address] [place] [address] Trish Bhardwaj NP Chronic diastolic congestive heart failure (CMS/HCC V24, CMS/HCC V28) (Primary Dx); Atrial fibrillation and flutter (CMS/HCC V24, CMS/HCC V28); Pulmonary hypertension (CMS/HCC V24, CMS/HCC V28); Hx of mechanical aortic valve replacement; Preop cardiovascular exam 06/10/2025 Telephone [facility] Cardiology [facility] [address] [facility] [address] [place] [address] Milton Durán MD from Last [...] Description 11/02/2025 9:50 AM EST Office Visit [facility] [address] [place] [address] Tanmay Flores MD [address] [place] [address] [place] [address] Health Maintenance Due Date Last Done Comments [...] EST 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 Confirmed by Marcin FLORES YUFENG ([id number]) on 06/14/2025 10:54:56 AM GEMUSE 06/14/2025 7:48 AM EDT 06/14/2025 10:54 AM EDT Trish Bhardwaj NP ECG ORDERABLES Final Result GEMUSE * (ABNORMAL) Comprehensive metabolic panel (01/17/2025 6:19 AM EST) [facility] Sodium 137 133 - 145 mmol/L [...] 01/17/2025 1:53 PM [facility] Alkaline Phosphatase 59 42 - 121 unit/L LAB CHEMISTRY METHOD 01/17/2025 1:53 PM [facility] Total Protein 7.2 6.0 - 8.0 g/dL LAB CHEMISTRY METHOD 01/17/2025 1:53 PM [facility] Albumin 2.9(L) 3.2 - 5.0 g/dL LAB CHEMISTRY METHOD 01/17/2025 1:53 PM [facility] Total Bilirubin 0.8 0.0 - 1.4 mg/dL LAB CHEMISTRY METHOD 01/17/2025 1:53 PM [facility] Blood Venous blood specimen / Unknown Venipuncture / Unknown 01/17/2025 6:19 AM EST 01/17/2025 12:22 PM EST Bonilla Sosa MD LAB BLOOD ORDERABLES Final Res ult [facility] [address] [place] [address], from Last 3 Months or Most Recently Relevant to Health Maintenance Insurance MEDICARE [facility] [id number] Care Teams Consultant Nurse Relationship Specialty Start Date End Date Milton Durán MD [address] [place] [address] [place] [address] PCP - General 02/03/18
--- OUTSIDE RECORDS SUMMARY | 2025-08-29 08:57 | XMS_ITS | Encounter Summary ---
Author Organization [facility] Address [address] [facility] [address] [place] [address] Phone Care Team Providers Care Portable Track Crew Chief Name Role Phone Milton Durán MD Primary Care Provider [phone] Encounter Details Date Type Department Care Team (Late st Contact Info) Description 02/21/2016 Ancillary Orders [facility] [address] [address] Paddy Schilling MD, PhD [address] [address] [email or web address] CAD (coronary artery disease) (Primary Dx); Essential [...] Coronary atherosclerosis of unspecified type of vessel, eklutna or graft Essential hypertension Unspecified essential hypertension Murmur Undiagnosed cardiac murmurs CAD (coronary artery disease) Coronary atherosclerosis of unspecified type of vessel, eklutna or graft Essential hypertension Unspecified essential hypertension Murmur Undiagnosed cardiac murmurs documented in this encounter Care Teams Portable Track Crew Chief Relationship Specialty Start Date End Date Milton Durán MD [address] [place] [address] [place] [address] PCP - General 05/31/14 documented as of this encounter Additional Source Comments The information contained in this document represents components of the legal health record. It is not the complete legal health record.[facility]
== END 2025-08-29 08:40 | disposition home or self-care (01) ==
LOC: HO.HGS 08:33
PROVIDERS: PCP Student in an Organized Health Care Education/Training Program; Visit Provider Surgery
DX: T14.8XXA Other injury of unspecified body region, initial encounter (principal)
CPT/HCPCS: 99024

== ENCOUNTER → 2025-08-29 08:33 | Outpatient (BNVA) | payer MEDICARE, OTHER, SELFPAY | PROVIDERS: PCP Student in an Organized Health Care Education/Training Program; Visit Provider Surgery | DX: Z48.00 Encounter for change or removal of nonsurgical wound dressing (principal) | CPT/HCPCS: 99212 ==

== ENCOUNTER 2025-08-31 08:02 | Outpatient (AMB) | payer MEDICARE, OTHER, SELFPAY ==
--- OUTSIDE RECORDS SUMMARY | 2025-08-31 08:08 | XMS_ITS | Encounter Summary ---
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 Social History Tobacco [...] Description 11/02/2025 9:50 AM EST Office Visit [facility] [address] [facility] [address] [place] [address] Tanmay Flores MD [place] [address] documented as of this encounter Procedures Procedure Name Priority Date/Time Associated Diagnosis Comments MANUAL DIFFERENTIAL - SYSMEX WAM Routine 01/17/2025 6:19 AM EST Encounter for other general examination jail (current) use of anticoagulants PATHOLOGIST REVIEW BLOOD SMEAR Routine 01/17/2025 6:19 AM EST Encounter for other general examination jail (current) use of anticoagulants CBC WITH AUTO DIFFERENTIAL Routine 01/17/2025 6:19 AM EST Encounter for other general examination jail (current) use of anticoagulants PROTHROMBIN TIME WITH INR Routine 01/17/2025 6:19 AM EST 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 01/19/2025 1:27 PM EST [facility] Blood Venous blood specimen / Unknown Venipuncture / Unknown 01/17/2025 6:19 AM EST 01/17/2025 12:22 PM EST us Bonilla Sosa MD LAB BLOOD ORDERABLES Final Res ult [facility] [address] [place] [address], * (ABNORMAL) Manual differential (01/17/2025 6:19 AM [...] LAB HEMETOLOGY METHOD 01/17/2025 5:20 PM EST [facility] Lymphocytes Absolute 1.63 1.00 - 5.00 K/mcL LAB HEMETOLOGY METHOD 01/17/2025 5:20 PM EST [facility] Reactive Lymph Abs Manual 0.14(H) 0.00 - 0.00 lym LAB HEMETOLOGY METHOD 01/17/2025 5:20 PM EST [facility] Monocytes Absolute Manual 2.27(H) 0.20 - 1.00 K/mcL LAB HEMETOLOGY METHOD 01/17/2025 5:20 PM EST [facility] Eosinophils Absolute Manual 0.07 0.00 - 0.50 K/mcL LAB HEMETOLOGY METHOD 01/17/2025 5:20 PM EST [facility] Basophils Absolute Manual 0.00 0.00 - 0.20 K/mcL LAB HEMETOLOGY METHOD 01/17/2025 5:20 PM EST [facility] Metamyelocytes Absolute Manual 0.07(H) 0.00 - 0.00 K/mcL LAB HEMETOLOGY METHOD 01/17/2025 5:20 PM EST [facility] Myelocytes Absolute Manual 0.07(H) 0.00 - 0.00 K/mcL LAB HEMETOLOGY METHOD 01/17/2025 5:20 PM EST [facility] Blood Venous blood specimen / Unknown Venipuncture / Unknown 01/17/2025 6:19 AM EST 01/17/2025 12:22 PM EST us Bonilla Sosa MD LAB BLOOD ORDERABLES Final Res ult [facility] [address] [place] [address], * (ABNORMAL) CBC auto differential (01/17/2025 6:19 [...] [facility] NRBC Absolute 0.00 <0.10 K/mcL LAB HEMETOLOGY METHOD 01/17/2025 5:20 PM [facility] Blood Venous blood specimen / Unknown Venipuncture / Unknown 01/17/2025 6:19 AM EST 01/17/2025 12:22 PM EST Bonilla Sosa MD LAB BLOOD ORDERABLES Final Res ult [facility] [address] [place] [address], [place] [phone] * (ABNORMAL) Prothrombin time with INR (01/17/2025 6:19 AM EST) Protime 29.7(H) 10.6 - 13.9 sec LAB COAGULATION METHOD 01/17/2025 1:26 PM EST [facility] INR 2.4 LAB COAGULATION METHOD 01/17/2025 1:26 PM EST [facility] Blood Venous blood specimen / Unknown Venipuncture / Unknown 01/17/2025 6:19 AM EST 01/17/2025 12:22 PM EST Bonilla Sosa MD LAB BLOOD ORDERABLES Final Res ult Performing Organization Address [facility] Co de Phone Number [facility] [address] [place] [address], [place] [phone] * Magnesium (01/17/2025 6:19 AM EST) Pathologist [facility] Magnesium 2.2 1.9 - 2.6 mg/dL LAB CHEMISTRY METHOD 01/17/2025 1:53 PM EST [facility] Blood Venous blood specimen / Unknown Venipuncture / Unknown 01/17/2025 6:19 AM EST 01/17/2025 12:22 PM EST Bonilla Sosa MD LAB BLOOD ORDERABLES Final Res ult [facility] [address] [place] [address], [place] [phone] * (ABNORMAL) Comprehensive metabolic panel (01/17/2025 6:19 [...] LAB CHEMISTRY METHOD 01/17/2025 1:53 PM EST [facility] Alkaline Phosphatase 59 42 - 121 unit/L LAB CHEMISTRY METHOD 01/17/2025 1:53 PM EST [facility] Total Protein 7.2 6.0 - 8.0 g/dL LAB CHEMISTRY METHOD 01/17/2025 1:53 PM EST [facility] Albumin 2.9(L) 3.2 - 5.0 g/dL LAB CHEMISTRY METHOD 01/17/2025 1:53 PM EST [facility] Total Bilirubin 0.8 0.0 - 1.4 mg/dL LAB CHEMISTRY METHOD 01/17/2025 1:53 PM [facility] Blood Venous blood specimen / Unknown Venipuncture / Unknown 01/17/2025 6:19 AM EST 01/17/2025 12:22 PM EST us Bonilla Sosa MD LAB BLOOD ORDERABLES Final Res ult [facility] [address] [place] [address], documented in this encounter Visit Diagnoses Diagnosis 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
--- OUTSIDE RECORDS SUMMARY | 2025-08-31 08:08 | XMS_ITS | Patient Health Record ---
Author Organization [facility] Address [address] [place] [address] Care Team Providers Care Deputy Prosecuting Attorney Name Role Phone Milton Durán MD Primary Care Provider UnavailFady Mcfarland Unavailable [phone] Allergies Allergen (clinical drug ingredient) Drug/Non Drug [...] Problem Acquired hammer toe of right foot (5915419102844 105) Other hammer toe(s) (acquired), right foot (M20.41) Active confirmed Problem Acquired hammer toe of left foot (2083959564838 103) Other hammer toe(s) (acquired), left foot [...] Medicare [employer] [address] [place] [address] [id number] Keegan Fagan Jr Self - patient is the insured [employer] ([facility]) [address] [place] [address] [id number] Keegan Fagan Jr Self - patient is the insured Medical (General) History Medical History History ICD Code Arthritis Back,Hip,and Knee pain Gall bladder problems Heart disease High blood pressure Scarlet fever Measles Mumps Chicken pox Surgical History Surgery Date(Month/Year) Right eye surgery 195 gall bladder 2003 heart surgery unspecified 2001 Hospitalization History Reason Date(Month/Year) [facility] [place] 1 week 10/2021
--- OUTSIDE RECORDS SUMMARY | 2025-08-31 08:08 | XMS_ITS | Clinical Summary ---
Author Organization [address] [place] [address] [place] [phone] Phone Care Team Providers Care Land Degradation Analyst Name Role Phone Milton Durán MD Primary Care Provider [phone] Allergies Active Allergy Reactions Criticality Noted Date [...] Problem Noted Date Diagnosed Date Pulmonary hypertension ([facility] V24, [facility] V28 ) 08/20/2024 Overview (09/27/2024): [...] to dental procedures. Atrial fibrillation and flutter ([facility] V24, CM /[facility] V28) 06/05/2021 Overview (09/27/2024): Atrial [...] 06/05/2021 Overview (09/27/2024): Syncope Sick sinus syndrome ([facility] V24, CMS/[facility] V28) 0 06/05/2021 Overview (09/27/2024): Sick sinus syndrome Encounters Date Type Department Care Team Description 07/05/2025 Telephone [facility] Cardiology [facility] [address] [place] [address] Tanmay Flores MD 06/15/2025 1:30 PM EDT Ancillary Procedure [facility] [address] [place] [address] Chronic diastolic congestive heart failure (CMS/HCC V24, CMS/HCC V28); Atrial fibrillation and flutter (CMS/HCC V24, CMS/HCC V28) 06/15/2025 Telephone [facility] [address] [place] [address] Milton Durán MD 06/14/2025 7:40 AM EDT Consult [facility] Cardiology [facility] [address] [facility] [address] [place] [address] Trish Bhardwaj NP Chronic diastolic congestive heart failure (CMS/HCC V24, CMS/HCC V28) (Primary Dx); Atrial fibrillation and flutter (CMS/HCC V24, CMS/HCC V28); Pulmonary hypertension (CMS/HCC V24, CMS/HCC V28); Hx of mechanical aortic valve replacement; Preop cardiovascular exam 06/10/2025 Telephone [facility] Cardiology [facility] [address] [facility] [address] [place] [address] Milton Durán MD from Last [...] Description 11/02/2025 9:50 AM EST Office Visit [facility] [address] [facility] [address] [place] [address] Tanmay Flores MD [address] [place] [address] [place] [address] Health Maintenance Due Date Last Done Comments [...] general examination USP (current) use of anticoagulants from Last 3 Months or Most Recently Relevant to Health Maintenance Results * (ABNORMAL) TRANSTHORACIC ECHOCARDIOGRAM (TTE) COMPLETE W/ CONTRAST (06/15/2025 2:29 PM EDT) Left Atrium Minor Lester 6.4 cm CV PACS Left Atrium Major Lester 6.3 cm CV PACS LA Area Sys [...] ms GEMUSE QTc 451 ms GEMUSE R Lester -18 degrees GEMUSE T Lester 16 degrees GEMUSE ECG Interpretation Atrial fibrillation Incomplete left bundle branch block No significant change was found compared with EKG from 08/2024. Confirmed by Marcin FLORES YUFENG ([id number]) on 06/14/2025 10:54:56 AM GEMUSE 06/14/2025 7:48 AM EDT 06/14/2025 10:54 AM EDT Trish Bhardwaj NP ECG ORDERABLES Final Result GEMUSE * (ABNORMAL) Comprehensive metabolic panel (01/17/2025 6:19 AM EST) [facility] Sodium 137 133 - 145 mmol/L LAB [...] BLOOD ORDERABLES Final Res ult [facility] [address] [place] [address], from Last 3 Months or Most Recently Relevant to Health Maintenance Insurance MEDICARE [facility] Care Teams Land Degradation Analyst Relationship Specialty Start Date End Date Milton Durán MD [address] [place] [address] [place] [address] PCP - General 02/03/18
[2025-08-31 08:15] LABS: Prothrombin Time Whole Bld POC 26.5 sec (11.1-13.5); ~PT, ~INR - Anti Coag Clinic 2.2 (0.9-1.1)
--- NOTE | 2025-08-31 08:45 | MHC.OFFVISCO ---
Intake Intake Visit Reasons: Anticoagulation Allergies adhesive (ADHESIVE) Allergy (Intermediate, Verified 08/31/25 08:09) RASH, BLISTERS atenolol (Atenolol) Allergy (Mild, Verified 08/31/25 08:09) RASH oxycodone Allergy (Mild, Verified 08/31/25 08:09) Gastrointestinal Upset sotalol (Sotalol) Allergy (Mild, Verified 08/31/25 08:09) RASH tamsulosin Allergy (Unknown, Verified 08/31/25 08:09) reaction unknown tramadol Allergy (Unknown, Verified 08/31/25 08:09) reaction unknown atorvastatin (From Lipitor) Adverse Reaction (Severe, Verified 08/31/25 08:09) SEVERE ACHES AND PAINS Medication List - Last Reconciled 08/31/25 by Shirin Simpson RN albuterol sulfate 90 mcg/actuation 2 puffs inhalation Q6H PRN doxazosin 4 mg PO BEDTIME finasteride 5 mg PO DAILY furosemide 40 mg PO DAILY lisinopril 40 mg (2 x 20 mg) PO DAILY rosuvastatin 40 mg PO DAILY spironolactone 25 mg PO DAILY warfarin 4 mg See Protocol PO DAILY@1800 Nursing Note PT.HERE TODAY FOR HOME METER TRAINING. PT.DEMONSTRATED GOOD TECHNIQUE AND VERBALIZED GOOD UNDERSTANDING OF REPORTING PROCESS. WILL TEST INR WEEKLY ON TUESDAYS, AND CALL TO [facility] APPROPRIATE. PT.IS AWARE TO CALL [facility] IF ANY QUESTIONS/CONCERNS ARISE RE HOME TESTING,OR OTHERWISE. WILL CONTINUE 4MGM WARFARIN DAILY FOR NOW AND RETEST IN 1 WEEK. Anti-Coag Initial Assessment Social Hx Patient Tobacco Use Status: Never used Tobacco alcohol intake: current Alcohol intake frequency: holidays/special occasions only Cardiovascular Hx: HTN and Arrhythmias (afib) Musculoskeletal Hx: Arthritis (knees) Hx: Prostate (enlarged) Neurological Hx: Other (Guillian-Wilmington syndrome 2024) Cancer HX: Yes (skin) Psych. 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
== END 2025-08-31 08:50 | disposition home or self-care (01) ==
LOC: HO.ACS 08:02
PROVIDERS: PCP Student in an Organized Health Care Education/Training Program; Visit Provider Internal Medicine Medical Oncology
DX: Z79.01 Long term (current) use of 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 (principal)

== ENCOUNTER → 2025-08-31 08:02 | Outpatient (BNVA) | payer MEDICARE, OTHER, SELFPAY | PROVIDERS: PCP Student in an Organized Health Care Education/Training Program; Visit Provider Internal Medicine Medical Oncology | DX: Z51.81 Encounter for therapeutic drug level monitoring (principal); Z79.01 Long term (current) use of 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 | CPT/HCPCS: 85610; G0248 ==

== ENCOUNTER 2025-10-10 11:15 | Outpatient (AMB) | payer MEDICARE, OTHER, SELFPAY ==
[2025-10-10 11:19] VITALS: BP 130/82; PULSE 72; TEMP 36.8; O2SAT 97; BMI 28.1
--- NOTE | 2025-10-10 11:19 | MHC.PC.OV ---
Vital Signs 10/10/25 11:19 Height 6 ft 6 in Weight 243 lb 6 oz BMI 28.1 BP 130/82 Blood Pressure Location Lt brachial Position Sitting Pulse 72 Pulse Source Pulse Oximeter Temp 98.3 F Temp Source Temporal Artery Scan Pulse Oximetry (%) 97 Oxygen Delivery Method Room Air Intake Visit Reasons: routine - see comments Prep Cook Required: No Accompanied by: Self / Same As Patient Allergies adhesive (ADHESIVE) Allergy (Intermediate, Verified 10/10/25 11:19) RASH, BLISTERS atenolol (Atenolol) Allergy (Mild, Verified 10/10/25 11:19) RASH oxycodone Allergy (Mild, Verified 10/10/25 11:19) Gastrointestinal Upset sotalol (Sotalol) Allergy (Mild, Verified 10/10/25 11:19) RASH tamsulosin Allergy (Unknown, Verified 10/10/25 11:19) reaction unknown tramadol Allergy (Unknown, Verified 10/10/25 11:19) reaction unknown atorvastatin (From Lipitor) Adverse Reaction (Severe, Verified 10/10/25 11:19) SEVERE ACHES AND PAINS Medication List - Last Reconciled 10/10/25 by Jacob Garcia MD amoxicillin 2,000 mg PO doxazosin 4 mg PO BEDTIME finasteride 5 mg PO DAILY furosemide 40 mg PO DAILY lisinopril 40 mg (2 x 20 mg) PO DAILY rosuvastatin 40 mg PO DAILY spironolactone 25 mg PO DAILY warfarin 4 mg See Protocol PO DAILY@1800 Tobacco use date assessed: 10/10/25 Fall risk assessment: No Falls in past year Last assessed Fall Risk: 10/10/25 Dental Screening Dental Screen Date: 10/10/25 Did you have a dental visit in the last 12 months?: Yes Did you have a dental problem in the last 6 months where you did not have access to dental care?: No HPI HPI Comments History of Present Illness Details The patient is an 89-year-old male presenting for a follow-up visit and management of multiple chronic conditions. His medical history is significant for a prosthetic valve, heart failure with preserved ejection fraction, hypertension, benign prostatic hyperplasia, hyperlipidemia, and atrial fibrillation. His current medications include furosemide, spironolactone, lisinopril, doxazosin, finasteride, rosuvastatin, warfarin, and metoprolol. He also takes amoxicillin as prophylaxis before dental cleanings due to his prosthetic valve. 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 He also had a one-day surgery that led to a three-week hospitalization and four subsequent surgeries due to complications from Coumadin. The patient reports difficulty with his legs, specifically edema, though he notes the swelling has recently decreased. He was previously seeing an orthopedic surgeon, Dr. Blandon, and would undergo arthrocentesis every three to four months, with four vials of fluid removed from one knee and two from the other. He wonders if his recent increased consumption of sardines is related to the improvement in swelling. He notes that the swelling subsides within a week when he spends the month of December in [facility], possibly due to increased rest and leg elevation. 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 Medical History: - Prosthetic heart valve - Heart failure with preserved ejection fraction - Hypertension - Benign prostatic hyperplasia - Hyperlipidemia - Atrial fibrillation, on warfarin - Guillain-Lonepine syndrome, diagnosed in January - Pneumonia, diagnosed in March - Chronic lower extremity edema Surgical History: - Prosthetic valve placement - History of four surgeries in one week following an initial procedure, due to complications from warfarin Medications: - Furosemide 40 mg for heart failure - Spironolactone 25 mg for heart failure - Lisinopril 40 mg for high blood pressure - Doxazosin 4 mg for enlarged prostate - Finasteride 5 mg for enlarged prostate - Rosuvastatin 40 mg for high cholesterol - Warfarin for atrial fibrillation and prosthetic valve - Metoprolol for atrial fibrillation - Amoxicillin taken only as a precaution for dental cleanings Diagnostic Results: - Labs: Recent blood work was reviewed and noted to be good. Social History: - Activity Level: Patient remains avocationally involved by sitting on five different boards and performs leg exercises in bed. - Diet: Reports eating a lot of sardines. - Travel: The patient spends the month of December in [facility] each year. [facility] Medical History (Updated 10/10/25 @ 12:15 by Jacob Garcia MD) Swelling of lower extremity Hyperlipidemia BPH (benign prostatic hyperplasia) Hematoma Postoperative anemia due to acute blood loss Mass of left hip region Subtherapeutic international normalized ratio (INR) Acute on chronic anemia Hypotension Aortic valve disease Eye injury Prosthetic eye globe Pneumonia Osteoarthritis Anemia Neuropathy Guillain-Lonepine syndrome HTN (hypertension) Leukopenia Atrial fibrillation Surgical History S/P evacuation of hematoma Hx of enucleation of right eyeball Hx of cataract extraction H/O colonoscopy Hx of aortic valve replacement History of cholecystectomy Family History (Updated 10/10/25 @ 11:31 by Anastasiia Mohr MA) Mother No problems noted. Father No problems noted. Social History Household Members: Spouse Housing: House Are you a primary child care specialist to a significant other at home: No Do you presently have visiting nurse or other home services: No Alcohol intake: current Alcohol intake frequency: holidays/special occasions only Alcohol type: wine Comment: Declines bed/ chair alarm- oob independently with walker Patient Tobacco Use Status: Never used Tobacco e-Cigarette/Vaping Use: Never Used service: No Current occupational status: retired Current occupation: retired Current occupational exposures/hazards: No Cognitive needs: No Hearing needs: No Vision needs: Yes (rx glasses) Questionnaire PHQ-9 Over the last 2 weeks, how often have you been bothered by any of the following problems? 1. Little interest or pleasure in doing things: not at all 2. Feeling down, depressed, or hopeless: not at all 3. Trouble falling or staying asleep, or sleeping too much: not at all 4. Feeling tired or having little energy: not at all 5. Poor appetite or overeating: not at all 6. Feeling bad about yourself - or that you are a failure or have let yourself or your family down: not at all 7. Trouble concentrating on things, such as reading the newspaper or watching television: not at all 8. Moving or speaking so slowly that other people could have noticed. Or the opposite - being so fidgety or restless that you have been moving around a lot more than usual: not at all 9. Thoughts that you would be better off or of hurting yourself in some way: not at all Total score: 0 Depression Screening Interpretation: Negative Depression Screening Done: Yes Source: Developed by Drs. Simon Worthy, Diana Song, Cory Miller and colleagues, with an educational robert from [employer]. Thrive Questionnaire Date Thrive assessed: 10/10/25 I am a: Patient Within the past 12 months, did the food you bought not last and you didn't have the money to get more?: Never true Within the past 12 months, did you worry whether your food would run out before you got money to buy more?: Never true Do you have trouble paying for medicines?: No Do you have trouble getting transportation to medical appointments?: No Do you have trouble paying your heating and electricity bill?: No Do you have trouble taking care of your child, family member or friend?: No Do you have trouble with day-to-day activities such as bathing, preparing meals, shopping, managing finances, etc.?: No Are you currently unemployed and looking for a job?: No Are you interested in more education?: No THRIVE Score: 0 AUDIT C Alcohol Use Questionnaire (AUDIT-C) 1. How often do you have a drink containing alcohol?: Monthly or less 2. How many drinks containing alcohol do you have on a typical day when you are drinking?: 1 or 2 3. How often do you have six or more drinks on one occasion?: Less than monthly Total Score: 2 KIRAN-7 AMB Questionnaire KIRAN-7 Date KIRAN - 7 assessed: 10/10/25 Feeling nervous, anxious, or on edge: 0 = Not at all Not being able to stop or control worryin = Not at all Worrying too much about different things: 0 = Not at all Trouble relaxin = Not at all Being so restless that it is hard to sit still: 0 = Not at all Becoming easily annoyed or irritable: 0 = Not at all Feeling afraid as if something awful might happen: 0 = Not at all Total KIRAN-7 score (0-4 normal; 5-9 mild; 10-14 moderate; 15-21 severe): 0 Source: Developed by Drs. Simon Worthy, Diana Song, Cory Miller and colleagues, with an educational robert from [employer]. Review of Systems Narrative - Constitutional: Reports feeling well, rating his health 99 out of 100. - Cardiovascular: Denies chest pain. Reports lower extremity swelling. - Respiratory: Denies dyspnea. - Gastrointestinal: Denies nausea and vomiting. - Musculoskeletal: Reports difficulty with his legs. - Neurologic: Reports a history of Guillain-Lonepine syndrome. All systems reviewed & are unremarkable except as reviewed in HPI and above Physical exam (Primary Care) Vital Signs: Last Vital Signs Temp 98.3 F 10/10/25 11:19 Pulse 72 10/10/25 11:19 BP 130/82 10/10/25 11:19 Pulse Ox 97 10/10/25 11:19 Oxygen Delivery Method Room Air 10/10/25 11:19 BMI result Body Mass Index 28.1 Tobacco/Smoking Status: Tobacco use Status Tobacco use date assessed 10/10/25 10/10/25 11:20 Patient Tobacco Use Status Never used Tobacco 10/10/25 11:20 e-Cigarette/Vaping Use Never Used 10/10/25 11:20 PHQ-9: PHQ-9 Score PHQ-9: Total score 0 10/10/25 11:31 Depression Screening Interpretation: Negative Thrive Assessment: Date of Thrive Assessment Date Thrive assessed 10/10/25 10/10/25 11:20 Narrative General: +Alert and oriented, Well nourished, No acute distress. Eye: Pupils are equal, round and reactive to light, Intact accommodation, Extraocular movements are intact, Normal conjunctiva, Vision unchanged. HENT: Normocephalic, Atraumatic, Tympanic membranes are clear, Normal hearing, Oral mucosa is moist, No pharyngeal erythema, Ear canals patent. Respiratory: Lungs CTA bilaterally, No wheeze, Respirations are non-labored. Cardiovascular: Regular rate, Regular rhythm, S1 auscultated, S2 auscultated, No murmur, Good pulses equal in all extremities, Normal peripheral perfusion, 1+ edema in both legs, left more than right. Gastrointestinal: Soft, Non-tender, Non-distended, Normal bowel sounds, No organomegaly. Musculoskeletal: Normal range of motion, Normal strength, No tenderness, No swelling, No deformity, Normal gait. Integumentary: Warm, Dry, Crowell, Intact. Neurologic: Alert, Oriented, Normal sensory, Normal motor function, No focal defects, Cranial Nerves II-XII are grossly intact, Normal deep tendon reflexes. Psychiatric: Cooperative, Appropriate mood & affect, Normal judgment. Coding Level of Care Code Est Pt Level 4 (89973) Complex EM visit Add On G2211 Diagnoses Primary hypertension I10 Hypertension type: primary hypertension Chronic heart failure with preserved ejection fraction I50.32 Aortic valve disease I35.9 Persistent atrial fibrillation I48.19 Atrial fibrillation type: persistent (not longstanding) Benign prostatic hyperplasia without lower urinary tract symptoms N40.0 Lower urinary tract symptom presence: symptoms absent Other hyperlipidemia E78.49 Hyperlipidemia type: other hyperlipidemia Swelling of lower extremity M79.89 Assessment & Plan Assessment & Plan (1) HTN (hypertension): Comment: Currently being managed on lisinopril 40 mg daily and spironolactone 25 mg with pressure is appropriately controlled at 130/82 Code(s): I10 - Essential (primary) hypertension Category: Medical Qualifiers: Hypertension type: primary hypertension Qualified Code(s): I10 - Essential (primary) hypertension (2) Chronic heart failure with preserved ejection fraction: Comment: No active symptoms however does have some 1+ lower extremity edema which may be a combination of varicosities in addition to his underlying heart failure however he denies any shortness of breath. Currently being managed with Lasix 40 mg daily and spironolactone 25 mg daily. Recently followed with Cardiology and was given the option to add Farxiga or Jardiance in the future if he continues to have symptoms Code(s): I50.32 - Chronic diastolic (congestive) heart failure Category: Medical (3) Aortic valve disease: Comment: s/p mechanical valve 1999 and currently on warfarin for anticoagulation and follows in the anticoagulation clinic Code(s): I35.9 - Nonrheumatic aortic valve disorder, unspecified Category: Medical (4) Atrial fibrillation: Comment: Currently on warfarin for his aortic valve disease and also AFib protection. Also on metoprolol succinate for rate control Code(s): I48.91 - Unspecified atrial fibrillation Category: Medical Qualifiers: Atrial fibrillation type: persistent (not longstanding) Qualified Code(s): I48.19 - Other persistent atrial fibrillation (5) BPH (benign prostatic hyperplasia): Comment: Currently on finasteride 5 mg daily with no active symptoms Code(s): N40.0 - Benign prostatic hyperplasia without lower urinary tract symptoms Category: Medical Qualifiers: Lower urinary tract symptom presence: symptoms absent Qualified Code(s): N40.0 - Benign prostatic hyperplasia without lower urinary tract symptoms (6) Hyperlipidemia: Comment: Stable on rosuvastatin 40 mg daily Code(s): E78.5 - Hyperlipidemia, unspecified Category: Medical Qualifiers: Hyperlipidemia type: other hyperlipidemia Qualified Code(s): E78.49 - Other hyperlipidemia (7) Swelling of lower extremity: Comment: - The patient presents with 1+ bilateral edema, left greater than right, which is an improvement from his baseline. - He is compliant with diuretics and compression stockings. - He was advised to continue these measures and to elevate his legs as much as possible while sitting. Code(s): M79.89 - Other specified soft tissue disorders Category: Medical Plan: Health Maintenance: - A discussion was held regarding immunizations. It was strongly advised that the patient receive both the COVID-19 and influenza vaccines. - The patient agreed to receive the annual flu shot but declined further COVID-19 shots, having received the initial series. - The patient takes amoxicillin as a prophylactic measure before dental cleanings to protect his prosthetic valve. - The patient was advised to stay active, eat healthy, and continue his positive attitude as gambino components of his overall health. Patient was informed and verbally consented to the use of an ambient scribe for clinic note documentation during this visit. Plan I reviewed the patient's extensive medical history and current medications for his multiple chronic conditions, including his prosthetic valve, HFpEF, hypertension, BPH, hyperlipidemia, and atrial fibrillation. Given that his conditions are stable and his blood pressure and heart rate are well-controlled, I informed him that no changes would be made to his current medication regimen. We discussed his lower extremity edema. I acknowledged the mild swelling observed on exam and advised him to continue using his compression stockings and to elevate his legs as much as possible when seated to aid circulation. I strongly recommended he receive both the annual influenza vaccine and a COVID-19 vaccine. The patient agreed to get the flu shot but declined the COVID-19 vaccine. I respected his decision, noting it is a recommendation and not a requirement. I praised his positive attitude and advised him that staying active and eating healthy are the most important things for his continued well-being. Medications: New metoprolol succinate ER 100 mg PO DAILY Patient Instructions: - Continue taking all of your current medications as prescribed. No changes were made to your medicines today. - Continue to wear your compression stockings to help with the swelling in your legs. - When you are sitting down, try to keep your legs raised up as much as you can. This will help reduce the swelling. - Please get your annual flu shot. - It is very important to stay active and continue to eat a healthy diet.
--- OUTSIDE RECORDS SUMMARY | 2025-10-10 13:34 | XMS_ITS | Clinical Summary ---
Author Organization [facility] Address [address] [address] Phone Care Team Providers Care Supervisor Car Installations Name Role Phone Milton Durán MD Primary [...] Problem Noted Date Diagnosed Date Atherosclerosis of [place] co ronary artery of [place] heart without angina pectoris 02/03/2017 Mixed hyperlipidemia [...] patient's age to complete this topic IPV VACCINES Aged Out No longer eligi ble [...] CHOICE INDEMNITY MEDICARE PART A & B [facility] TOTAL CHOICE INDEMNITY MEDICARE PART A & B [facility] TOTAL CHOICE INDEMNITY MEDICARE PART A & B [facility] TOTAL CHOICE INDEMNITY MEDICARE PART [facility] & [facility] TOTAL CHOICE INDEMNITY MEDICARE PART A & [facility] TOTAL CHOICE INDEMNITY MEDICARE PART A & B [facility] TOTAL CHOICE INDEMNITY MEDICARE PART A & B [facility] TOTAL CHOICE INDEMNITY MEDICARE PART A & B [facility] TOTAL CHOICE INDEMNITY Care Teams Supervisor Car Installations Relationship Specialty Start Date End Date Milton Durán MD [address] [place] [address] [place] [address] PCP - General 05/31/14 Additional Source Comments The information contained in this document represents components of the legal health record. It is not the complete legal health record.[facility]
--- OUTSIDE RECORDS SUMMARY | 2025-10-10 13:34 | XMS_ITS | Clinical Summary ---
Author Organization [address] [place] [address] [place] [phone] Phone Care Team Providers Care Manager Package Name Role Phone Milton Durán MD Primary Care Provider [phone] Allergies Active Allergy Reactions Criticality Noted Date [...] Problem Noted Date Diagnosed Date Pulmonary hypertension ([facility] V24, [facility] V28 ) 08/20/2024 Overview (09/27/2024): Last [...] to dental procedures. Atrial fibrillation and flutter ([facility] V24, [facility] /[facility] V28) 06/05/2021 Overview (09/27/2024): Atrial fibrillation [...] Coumadin endocarditis prophylaxis. CHF (congestive heart failure) ([facility] V24, [facility] V28) 06/05/2021 Overview (09/27/2024): Last Assessment [...] 06/05/2021 Overview (09/27/2024): Syncope Sick sinus syndrome ([facility] V24, [facility] V28) 0 06/05/2021 Overview (09/27/2024): Sick [...] Description 11/02/2025 9:50 AM EST Office Visit [facility] [address] [facility] [address] [place] [address] Tanmay Flores MD [address] [place] [address] [address] [place] [address] Health Maintenance Due Date Last Done Comments [...] AM EST Encounter for other general examination skilled nursing (current) use of anticoagulants from Last 3 Months or Most Recently Relevant to Health Maintenance Results * (ABNORMAL) Comprehensive metabolic panel (01/17/2025 6:19 AM EST) Sodium 137 133 - 145 mmol/L LAB CHEMISTRY METHOD 01/17/2025 1:53 PM [facility] Potassium 3.9 3.5 - 5.5 mmol/L LAB CHEMISTRY METHOD 01/17/2025 1:53 PM [facility] Chloride 103 96 - 110 mmol/L LAB CHEMISTRY METHOD 01/17/2025 1:53 PM [facility] CO2 32 21 - 32 mmol/L LAB CHEMISTRY METHOD 01/17/2025 1:53 PM [facility] Anion Gap 2(L) 3 - 11 LAB CHEMISTRY METHOD 01/17/2025 1:53 PM [facility] Glucose 77 70 - 100 mg/dL LAB CHEMISTRY METHOD 01/17/2025 1:53 PM [facility] BUN 22 5 - 25 mg/dL LAB CHEMISTRY METHOD 01/17/2025 1:53 PM [facility] Creatinine 0.89 0.70 - 1.30 mg/dL LAB CHEMISTRY METHOD 01/17/2025 1:53 PM [facility] eGFR 82 >=60 mL/min/1. 73m2 LAB CHEMISTRY METHOD 01/17/2025 1:53 PM [facility] Comment:Calculation based on the Chronic Kidney Disease Epidemiology Collaboration (CKD-EPI) equation refit without adjustment for race. BUN/Creatinine Ratio 24.7 LAB CHEMISTRY METHOD 01/17/2025 1:53 PM [facility] Calcium 8.2(L) 8.5 - 10.5 mg/dL LAB CHEMISTRY METHOD 01/17/2025 1:53 PM [facility] AST (SGOT) 26 10 - 42 unit/L LAB CHEMISTRY METHOD 01/17/2025 1:53 PM [facility] ALT (SGPT) 23 10 - 60 unit/L LAB CHEMISTRY METHOD 01/17/2025 1:53 PM [facility] Alkaline Phosphatase 59 42 - 121 unit/L LAB CHEMISTRY METHOD 01/17/2025 1:53 PM [facility] Total Protein 7.2 6.0 - 8.0 g/dL LAB CHEMISTRY METHOD 01/17/2025 1:53 PM [facility] Albumin 2.9(L) 3.2 - 5.0 g/dL LAB CHEMISTRY METHOD 01/17/2025 1:53 PM [facility] Total Bilirubin 0.8 0.0 - 1.4 mg/dL LAB CHEMISTRY METHOD 01/17/2025 1:53 PM [facility] Blood Venous blood specimen / Unknown Venipuncture / Unknown 01/17/2025 6:19 AM EST 01/17/2025 12:22 PM EST us Bonilla Sosa MD LAB BLOOD ORDERABLES Final Res ult [facility] [address] [place] [address], from Last 3 Months or Most Recently Relevant to Health Maintenance Insurance MEDICARE [employer] Care Teams Manager Package Relationship Specialty Start Date End Date Milton Durán MD [address] [place] [address] [place] [address] PCP - General 02/03/18
--- OUTSIDE RECORDS SUMMARY | 2025-10-10 13:35 | XMS_ITS | Encounter Summary ---
Author Organization [facility] Address [address] [facility] [address] [place] [address] Phone Care Team Providers Care Engineering Mechanic Name Role Phone Milton Durán MD Primary Care Provider Encounter Details Date Type Department Care Team (Late st Contact Info) Description 02/21/2016 Ancillary Orders [facility] [address] [address] Paddy Schilling MD, PhD [address] [address] [email or web address] CAD (coronary artery disease) (Primary Dx); Essential [...] atherosclerosis of unspecified type of vessel, [place] or graft Essential hypertension Unspecified essential hypertension Murmur Undiagnosed cardiac murmurs CAD (coronary artery disease) Coronary atherosclerosis of unspecified type of vessel, [place] or graft Essential hypertension Unspecified essential hypertension Murmur Undiagnosed cardiac murmurs documented in this encounter Care Teams Engineering Mechanic Relationship Specialty Start Date End Date Milton Durán MD [address] [place] [address] [place] [address] PCP - General 05/31/14 documented as of this encounter Additional Source Comments The information contained in this document represents components of the legal health record. It is not the complete legal health record.[facility]
--- OUTSIDE RECORDS SUMMARY | 2025-10-10 13:35 | XMS_ITS | Encounter Summary ---
Author Organization [facility] Address [address] [place] [address] Care Team Providers Care Lacing Cutter Name Role Phone Milton Durán MD Primary Care Provider [phone] Encounter Details Date Type Department Care Team (Latest Contact Info) Description 01/17/[address] [facility] Lab [address] [facility] [place] [address] Bonilla Sosa MD [address] [place] [id number] Encounter for other general examination; half-way (current) use of anticoagulants Social History Tobacco [...] Description 11/02/2025 9:50 AM EST Office Visit [facility] [address] [facility] [address] [place] [address] Tanmay Flores MD [place] [address] documented as of this encounter Procedures Procedure Name Priority Date/Time Associated Diagnosis Comments MANUAL DIFFERENTIAL - SYSMEX WAM Routine 01/17/2025 6:19 AM EST Encounter for other general examination half-way (current) use of anticoagulants PATHOLOGIST REVIEW BLOOD SMEAR Routine 01/17/2025 6:19 AM EST 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 CBC WITH AUTO DIFFERENTIAL Routine 01/17/2025 6:19 AM EST Encounter for other general examination half-way (current) use of anticoagulants PROTHROMBIN TIME WITH INR Routine 01/17/2025 6:19 AM EST 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 01/19/2025 1:27 PM EST [facility] Blood Venous blood specimen / Unknown Venipuncture / Unknown 01/17/2025 6:19 AM EST 01/17/2025 12:22 PM EST us Bonilla Sosa MD LAB BLOOD ORDERABLES Final Res ult [facility] [address] [place] [address], * (ABNORMAL) Manual differential (01/17/2025 6:19 AM EST) Neutrophils % 36.0 % LAB HEMETOLOGY METHOD 01/17/2025 5:20 PM [facility] Bands % 4.0 % LAB HEMETOLOGY METHOD 01/17/2025 5:20 PM [facility] Lymphocytes % 23.0 % LAB HEMETOLOGY METHOD 01/17/2025 5:20 PM [facility] Reactive Lymphocyte 2.00 % LAB HEMETOLOGY METHOD 01/17/2025 5:20 PM [facility] Monocytes % 32.0 % LAB HEMETOLOGY METHOD 01/17/2025 5:20 PM [facility] Eosinophils % 1.0 % LAB HEMETOLOGY METHOD 01/17/2025 5:20 PM [facility] Basophils % 0.0 % LAB HEMETOLOGY METHOD 01/17/2025 5:20 PM [facility] Metamyelocytes % 1.0(H) % LAB HEMETOLOGY METHOD 01/17/2025 5:20 PM [facility] Myelocytes % 1.0(H) % LAB HEMETOLOGY METHOD 01/17/2025 5:20 PM [facility] Neutrophils Absolute Manual 2.56 1.50 - 7.00 K/mcL LAB HEMETOLOGY METHOD 01/17/2025 5:20 PM [facility] Bands Absolute Manual 0.28(H) [...] Final Res ult [facility] [address] [place] [address], * (ABNORMAL) CBC auto differential (01/17/2025 6:19 AM EST) WBC 7.1 4.8 - 10.8 K/mcL LAB HEMETOLOGY METHOD 01/17/2025 5:20 PM [facility] RBC 2.60(L) 4.50 - 5.50 M/mcL LAB HEMETOLOGY METHOD 01/17/2025 5:20 PM [facility] Hemoglobin 7.7(L) 13.5 - 17.5 g/dL LAB HEMETOLOGY METHOD 01/17/2025 5:20 PM [facility] Hematocrit 25.2(L) 42.0 - 54.0 % LAB HEMETOLOGY METHOD 01/17/2025 5:20 PM [facility] MCV 96.9 79.0 - 98.0 FL LAB HEMETOLOGY METHOD 01/17/2025 5:20 PM [facility] MCH 29.6 27.0 - 32.0 pcg LAB HEMETOLOGY METHOD 01/17/2025 5:20 PM [facility] MCHC 30.6(L) 32.0 - 37.0 g/dL LAB HEMETOLOGY METHOD 01/17/2025 5:20 PM [facility] RDW 24.7(H) 11.0 - 15.0 % LAB HEMETOLOGY METHOD 01/17/2025 5:20 PM [facility] Platelets 120(L) 130 - 400 K/mcL LAB HEMETOLOGY METHOD 01/17/2025 5:20 PM [facility] MPV 11.9(H) 7.0 - 11.0 FL LAB HEMETOLOGY METHOD 01/17/2025 5:20 PM [facility] NRBC 0.0 <1.0 % LAB HEMETOLOGY METHOD 01/17/2025 5:20 PM [facility] NRBC Absolute 0.00 <0.10 K/mcL LAB HEMETOLOGY METHOD 01/17/2025 5:20 PM [facility] Blood Venous blood specimen / Unknown Venipuncture / Unknown 01/17/2025 6:19 AM EST 01/17/2025 12:22 PM EST Bonilla Sosa MD LAB BLOOD ORDERABLES Final Res ult [facility] [address] [place] [address], [place] [phone] * (ABNORMAL) Prothrombin time with INR (01/17/2025 [...] Final Res ult Performing Organization Address [facility] Co de Phone Number [facility] [address] [place] [address], [place] [phone] * Magnesium (01/17/2025 6:19 AM EST) Pathologist [facility] Magnesium 2.2 1.9 - 2.6 mg/dL LAB CHEMISTRY METHOD 01/17/2025 1:53 PM EST [facility] Blood Venous blood specimen / Unknown Venipuncture / Unknown 01/17/2025 6:19 AM EST 01/17/2025 12:22 PM EST Bonilla Sosa MD LAB BLOOD ORDERABLES Final Res ult [facility] [address] [place] [address], [place] [phone] * (ABNORMAL) Comprehensive metabolic panel (01/17/2025 6:19 AM EST) Sodium 137 133 - 145 mmol/L LAB CHEMISTRY METHOD 01/17/2025 1:53 PM [facility] Potassium 3.9 3.5 - 5.5 mmol/L LAB CHEMISTRY METHOD 01/17/2025 1:53 PM [facility] Chloride 103 96 - 110 mmol/L LAB CHEMISTRY METHOD 01/17/2025 1:53 PM [facility] CO2 32 21 - 32 mmol/L LAB CHEMISTRY METHOD 01/17/2025 1:53 PM [facility] Anion Gap 2(L) 3 - 11 LAB CHEMISTRY METHOD 01/17/2025 1:53 PM [facility] Glucose 77 70 - 100 mg/dL LAB CHEMISTRY METHOD 01/17/2025 1:53 PM [facility] BUN 22 5 - 25 mg/dL LAB CHEMISTRY METHOD 01/17/2025 1:53 PM [facility] Creatinine 0.89 0.70 - 1.30 mg/dL LAB CHEMISTRY METHOD 01/17/2025 1:53 PM [facility] eGFR 82 >=60 mL/min/1. 73m2 LAB CHEMISTRY METHOD 01/17/2025 1:53 PM [facility] Comment:Calculation based on the Chronic Kidney Disease Epidemiology Collaboration (CKD-EPI) equation refit without adjustment for race. BUN/Creatinine Ratio 24.7 LAB CHEMISTRY METHOD 01/17/2025 1:53 PM [facility] Calcium 8.2(L) 8.5 - 10.5 mg/dL LAB CHEMISTRY METHOD 01/17/2025 1:53 PM [facility] AST (SGOT) 26 10 - 42 unit/L LAB CHEMISTRY METHOD 01/17/2025 1:53 PM [facility] ALT (SGPT) 23 10 [...] mg/dL LAB CHEMISTRY METHOD 01/17/2025 1:53 PM [facility] Blood Venous blood specimen / Unknown Venipuncture / Unknown 01/17/2025 6:19 AM EST 01/17/2025 12:22 PM EST us Bonilla Sosa MD LAB BLOOD ORDERABLES Final Res ult [facility] [address] [place] [address], documented in this encounter Visit Diagnoses Diagnosis 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
== END 2025-10-10 12:09 | disposition home or self-care (01) ==
LOC: HO.HMCHD 11:16
PROVIDERS: PCP Student in an Organized Health Care Education/Training Program; Visit Provider Student in an Organized Health Care Education/Training Program
DX: I10 Essential (primary) hypertension (principal); I50.32 Chronic diastolic (congestive) heart failure; I35.9 Nonrheumatic aortic valve disorder, unspecified; I48.19 Other persistent atrial fibrillation; N40.0 Benign prostatic hyperplasia without lower urinary tract symptoms; E78.49 Other hyperlipidemia; M79.89 Other specified soft tissue disorders

== ENCOUNTER → 2025-10-10 11:15 | Outpatient (BNVA) | payer MEDICARE, OTHER, SELFPAY | PROVIDERS: PCP Student in an Organized Health Care Education/Training Program; Visit Provider Student in an Organized Health Care Education/Training Program | DX: I11.0 Hypertensive heart disease with heart failure (principal); I50.32 Chronic diastolic (congestive) heart failure; I35.9 Nonrheumatic aortic valve disorder, unspecified; I48.19 Other persistent atrial fibrillation; N40.0 Benign prostatic hyperplasia without lower urinary tract symptoms; E78.49 Other hyperlipidemia; M79.89 Other specified soft tissue disorders; Z79.01 Long term (current) use of 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; Z79.899 Other long term (current) drug therapy; Z13.31 Encounter for screening for depression; Z13.39 Encounter for screening examination for other mental health and behavioral disorders | CPT/HCPCS: 96127; 99212 ==

== ENCOUNTER → 2025-11-25 11:48 | Outpatient (BNV) | payer MEDICARE, OTHER, SELFPAY | PROVIDERS: Emergency Provider Emergency Medicine; PCP Student in an Organized Health Care Education/Training Program; Visit Provider Radiology Diagnostic Radiology | DX: N20.0 Calculus of kidney (principal); N32.89 Other specified disorders of bladder; R91.1 Solitary pulmonary nodule | CPT/HCPCS: 74176 ==

== ENCOUNTER → 2025-11-25 13:49 | Outpatient (BNV) | payer MEDICARE, OTHER, SELFPAY | PROVIDERS: Admitting Provider Physician Assistant Medical; Emergency Provider Emergency Medicine; PCP Student in an Organized Health Care Education/Training Program; Visit Provider Internal Medicine Cardiovascular Disease | DX: Z95.2 Presence of prosthetic heart valve (principal); I48.19 Other persistent atrial fibrillation | CPT/HCPCS: 99222 ==

== ENCOUNTER → 2025-11-25 13:49 | Outpatient (BNV) | payer MEDICARE, OTHER, SELFPAY | PROVIDERS: Admitting Provider Physician Assistant Medical; Emergency Provider Emergency Medicine; PCP Student in an Organized Health Care Education/Training Program; Visit Provider Physician Assistant Medical | DX: Z95.2 Presence of prosthetic heart valve (principal); I48.19 Other persistent atrial fibrillation; R31.0 Gross hematuria | CPT/HCPCS: 99223; 99233; 99499 ==

== ENCOUNTER → 2025-11-25 13:49 | Outpatient (BNV) | payer MEDICARE, OTHER, SELFPAY | PROVIDERS: Admitting Provider Physician Assistant Medical; Emergency Provider Emergency Medicine; PCP Student in an Organized Health Care Education/Training Program; Visit Provider Urology | DX: Z79.01 Long term (current) use of 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 (principal); R33.9 Retention of urine, unspecified; N31.9 Neuromuscular dysfunction of bladder, unspecified; G61.0 Guillain-Barre syndrome | CPT/HCPCS: 51700; 99222; 99232 ==